=== PATIENT | female | born 1950 | race American Indian/Alaskan Native ===

== ENCOUNTER 2016-08-18 18:20 | Emergency (ER) | payer MEDICARE ==
--- NOTE | 2016-08-18 21:17 | Cat Scan Report ---
FINAL REPORT EXAM: CT HEAD/BRAIN WO CON HISTORY: hypertension, altered mental status TECHNIQUE: Noncontrast CT axial images of the brain. PRIORS: 23 Sep 2014. FINDINGS: No parenchymal mass, mass effect, hemorrhage, midline shift or hydrocephalus. No evidence of acute cortical infarct. No abnormal, extra-axial fluid or air collection. Mild, patchy low density in the periventricular and subcortical white matter is nonspecific, but may relate to chronic small vessel ischemic change. Probable old lacunar infarct changes in the bilateral basal ganglia. Bilateral basal ganglia calcifications. Osseous calvarium grossly intact. IMPRESSION: 1. No acute intracranial findings. 2. Chronic ischemic changes suspected.
[2016-08-18] MEDS ORDERED: CATAPRES PO ONE (21:19)
[2016-08-18] MEDS ORDERED: FIORICET PO ONE (21:19)
--- NOTE | 2016-08-18 21:24 | Emergency Department Report ---
HPI - General Chief Complaint: Weakness Time Seen by Provider: 08/18/16 20:19 - HPI HPI: Room 23 The patient is a 65-year-old female presenting with a chief complaint of headache. The patient states she was in her usual state of health until today at dialysis the patient states she was found to be hypertensive and complained of a headache. Patient states she has pain in the left frontal region of her head. Patient gives her pain a score of 6-7/10. Patient denies loss of consciousness or feeling drowsy while at dialysis. Patient denies any other complaints Location: head Duration: [see above] Quality: Headache Severity: 6-7/10 Modifying factors: [see above] Context: [see above] Mode of transportation: [not driving] ED Past Medical Hx - Past Medical History Hx Hypertension: Yes Hx Diabetes: Yes Hx GERD: Yes Hx Renal Disease: Yes (HD T,TH,Sat) - Surgical History Additional Surgical History: graft left arm - Family History Family history: no significant - Social History Smoking Status: Never Smoker Substance Use Type: None - Medications Home Medications: Home Medications Medication Instructions Recorded Confirmed Last Taken Type Cinacalcet [Sensipar] 30 mg PO DAILY 06/22/13 08/18/16 1 Day Ago History Labetalol HCl [Trandate TAB] 300 mg PO BID #60 tablet 04/11/14 08/18/16 1 Day Ago Rx Furosemide 40 mg PO DAILY PRN 06/18/14 08/18/16 1 Day Ago History ISOSORBIDE MONOnitrate [Imdur ER] 60 mg PO QDAY #30 tablet 06/20/14 08/18/16 1 Day Ago Rx Ferrous Sulfate [Feosol 325 MG tab] 325 mg PO BID #60 tablet 09/24/14 08/18/16 1 Day Ago Rx ALPRAZolam [Xanax TAB] 0.25 mg PO DAILY PRN 09/03/15 08/18/16 08/18/16 08:00 History Clonidine HCl [Catapres] 0.3 mg PO TID 09/03/15 08/18/16 1 Day Ago History Codeine/Butalbital/ASA/Caffein 1 each PO HS 09/03/15 08/18/16 1 Day Ago History [Fiorinal with Codeine #3 Cap] Cyproheptadine [Periactin] 4 mg PO TID 09/03/15 08/18/16 1 Day Ago History Ferric Citrate (Nf) [Auryxia (Nf)] 3 tab PO TID 09/03/15 08/18/16 Unknown History Mirtazapine [Remeron] 15 mg PO DAILY 09/03/15 08/18/16 1 Day Ago History Omeprazole [PriLOSEC] 40 mg PO QDAY 09/03/15 08/18/16 1 Day Ago History Ondansetron [Zofran TAB] 4 mg PO QID PRN 09/03/15 08/18/16 Unknown History Pravastatin (Nf) [Pravachol] 20 mg PO QHS 09/03/15 08/18/16 1 Day Ago History Vit B Cplx #11/FA/C/Biot/Zn Ox 1 each PO DAILY 09/03/15 08/18/16 Unknown History [Dialyvite with Zinc Tablet] Insulin Glulisine [Apidra] See Protocol SUB-Q ACHS 30 Days 12/05/15 08/18/16 1 Day Ago Rx hydrALAZINE [Apresoline TAB] 100 mg PO Q8HR #90 tab 12/05/15 08/18/16 1 Day Ago Rx Butalb/Acetamin/Caff 50-325-40 1 tab PO Q8HR PRN #10 tablet 08/19/16 Unknown Rx [Fioricet] ED Review of Systems ROS: Stated complaint: LETHARGIC Other details as noted in HPI Comment: All other systems reviewed and negative Constitutional: denies: chills, fever Eyes: denies: eye pain, eye discharge, vision change ENT: denies: ear pain, throat pain Respiratory: denies: cough, shortness of breath, wheezing Cardiovascular: denies: chest pain, palpitations Endocrine: no symptoms reported Gastrointestinal: denies: abdominal pain, nausea, diarrhea Genitourinary: denies: urgency, dysuria, discharge Musculoskeletal: denies: back pain, joint swelling, arthralgia Skin: denies: rash, lesions Neurological: headache Psychiatric: denies: anxiety, depression Hematological/Lymphatic: denies: easy bleeding, easy bruising Physical Exam - Physical Exam Vital Signs: Vital Signs 08/18/16 08/18/16 18:43 19:17 Temperature 98.6 F Pulse Rate 78 Respiratory 16 Rate Blood Pressure 193/86 O2 Sat by Pulse 98 97 Oximetry Physical Exam: GENERAL: The patient is well-developed well-nourished female sitting on stretcher not appearing to be in acute distress. [] HEENT: Normocephalic. Atraumatic. Extraocular motions are intact. Patient has moist mucous membranes. NECK: Supple. No meningitic signs are noted. Trachea midline CHEST/LUNGS: Clear to auscultation. There is no respiratory distress noted. HEART/CARDIOVASCULAR: Regular. There is no tachycardia. There is no gallop rub or murmur. ABDOMEN: Abdomen is soft, nontender. Patient has normal bowel sounds. There is no abdominal distention. SKIN: There is no rash. There is no edema. There is no diaphoresis. NEURO: The patient is awake, alert, and oriented. The patient is cooperative. The patient has no focal neurologic deficits. The patient has normal speech. Cranial nerves II through XII grossly intact, no drift, tig welder equal bilaterally MUSCULOSKELETAL: There is no evidence of acute injury. ED Course Vital Signs 08/18/16 08/18/16 18:43 19:17 Temperature 98.6 F Pulse Rate 78 Respiratory 16 Rate Blood Pressure 193/86 O2 Sat by Pulse 98 97 Oximetry ED Medical Decision Making - Lab Data Result diagrams: 08/18/16 21:02 08/18/16 21:02 Laboratory Tests 08/18/16 08/18/16 08/18/16 21:02 21:02 21:02 WBC 3.8 L RBC 4.11 Hgb 12.5 Hct 38.8 MCV 94 MCH 30 MCHC 32 RDW 17.5 H Plt Count 166 Lymph % (Auto) 20.4 [place] % (Auto) 11.4 H Eos % (Auto) 8.2 H Baso % (Auto) 1.1 Lymph # 0.8 L [place] # 0.4 Eos # 0.3 Baso # 0.0 Seg Neutrophils % 58.9 Seg Neutrophils # 2.2 PT 13.3 INR 1.02 APTT 32.6 Sodium 134 L Potassium 4.0 Chloride 93.2 L Carbon Dioxide 21 L Anion Gap 24 BUN 43 H Creatinine 5.6 H Estimated GFR 9 BUN/Creatinine Ratio 7.67 Glucose 94 Calcium 9.1 Ammonia Total Creatine Kinase 439 H CK-MB (CK-2) 7.2 H CK-MB (CK-2) Rel Index 1.6 Troponin T Triglycerides Cholesterol LDL Cholesterol Direct HDL Cholesterol Cholesterol/HDL Ratio 08/18/16 08/18/16 21:02 21:02 WBC RBC Hgb Hct MCV MCH MCHC RDW Plt Count Lymph % (Auto) [place] % (Auto) Eos % (Auto) Baso % (Auto) Lymph # [place] # Eos # Baso # Seg Neutrophils % Seg Neutrophils # PT INR APTT Sodium Potassium Chloride Carbon Dioxide Anion Gap BUN Creatinine Estimated GFR BUN/Creatinine Ratio Glucose Calcium Ammonia 35.0 Total Creatine Kinase CK-MB (CK-2) CK-MB (CK-2) Rel Index Troponin T 0.221 H* Triglycerides 73 Cholesterol 201 H LDL Cholesterol Direct 105 HDL Cholesterol 82 H Cholesterol/HDL Ratio 2.45 Laboratory Tests 08/18/16 08/18/16 08/18/16 21:02 21:02 21:02 WBC 3.8 L RBC 4.11 Hgb 12.5 Hct 38.8 MCV 94 MCH 30 MCHC 32 RDW 17.5 H Plt Count 166 Lymph % (Auto) 20.4 [place] % (Auto) 11.4 H Eos % (Auto) 8.2 H Baso % (Auto) 1.1 Lymph # 0.8 L [place] # 0.4 Eos # 0.3 Baso # 0.0 Seg Neutrophils % 58.9 Seg Neutrophils # 2.2 PT 13.3 INR 1.02 APTT 32.6 Sodium 134 L Potassium 4.0 Chloride 93.2 L Carbon Dioxide 21 L Anion Gap 24 BUN 43 H Creatinine 5.6 H Estimated GFR 9 BUN/Creatinine Ratio 7.67 Glucose 94 Calcium 9.1 Ammonia Total Creatine Kinase 439 H CK-MB (CK-2) 7.2 H CK-MB (CK-2) Rel Index 1.6 Troponin T Triglycerides Cholesterol LDL Cholesterol Direct HDL Cholesterol Cholesterol/HDL Ratio 08/18/16 08/18/16 08/19/16 21:02 21:02 00:44 WBC RBC Hgb Hct MCV MCH MCHC RDW Plt Count Lymph % (Auto) [place] % (Auto) Eos % (Auto) Baso % (Auto) Lymph # [place] # Eos # Baso # Seg Neutrophils % Seg Neutrophils # PT INR APTT Sodium Potassium Chloride Carbon Dioxide Anion Gap BUN Creatinine Estimated GFR BUN/Creatinine Ratio Glucose Calcium Ammonia 35.0 Total Creatine Kinase 388 H CK-MB (CK-2) 6.3 H CK-MB (CK-2) Rel Index 1.6 Troponin T 0.221 H* 0.262 H* Triglycerides 73 Cholesterol 201 H LDL Cholesterol Direct 105 HDL Cholesterol 82 H Cholesterol/HDL Ratio 2.45 - EKG Data -: EKG Interpreted by Me EKG shows normal: sinus rhythm Rate: normal - EKG Data When compared to previous EKG there are: no significant change Interpretation: unchanged when compared t (12/03/2015) - Radiology Data Radiology results: report reviewed (CT head), image reviewed (CT head) CT head (read by radiologist)-no acute intracranial findings. Chronic ischemic changes suspected. - Differential Diagnosis hypertension, ICH, Critical care attestation.: If time is entered above; I have spent that time in minutes in the direct care of this critically ill patient, excluding procedure time. ED Disposition Clinical Impression: Headache, Hypertension Disposition: DISCHARGED TO HOME OR SELFCARE Is pt being admited?: No Does the pt Need Aspirin: No Condition: Stable Instructions: Hypertension (ED) Additional Instructions: Return to the emergency department immediately should you develop worsening symptoms, fever, inability to tolerate food or liquid or any other concerns. Prescriptions: Butalb/Acetamin/Caff 50-325-40 [Fioricet] 1 tab PO Q8HR PRN #10 tablet PRN Reason: Headache Referrals: PRIMARY CARE, [Primary Care Provider] - 3-5 Days Time of Disposition: 01:42
[2016-08-18 21:38] LABS: Basophils % (Auto) 1.1 % (0.0-1.8); Eosinophils % (Auto) 8.2 % (0.0-4.3); Hematocrit 38.8 % (30.3-42.9); Hemoglobin 12.5 gm/dl (10.1-14.3); Mean Corpuscular HGB Conc 32 % (30-34); Mean Corpuscular Hemoglobin 30 pg (28-32); Mean Corpuscular Volume 94 fl (79-97); Platelet Count 166 K/mm3 (140-440); Red Blood Count 4.11 M/mm3 (3.65-5.03); Red Cell Distribution Width 17.5 % (13.2-15.2); White Blood Count 3.8 K/mm3 (4.5-11.0)
[2016-08-18 21:45] LABS: Creatine Kinase MB 7.2 ng/mL (0.0-4.0)
[2016-08-18 21:47] LABS: BUN/Creatinine Ratio 7.67; Calcium 9.1 mg/dL (8.4-10.2); Chloride 93.2 mmol/L (98-107)
[2016-08-18 21:48] LABS: INR 1.02 (0.87-1.13)
[2016-08-18 21:49] LABS: Partial Thromboplastin Time 32.6 Sec. (24.2-36.6)
[2016-08-18] MEDS ORDERED: NORMODYNE IV ONE (22:55)
[2016-08-19 01:17] VITALS: BP 169/79
[2016-08-19 01:31] LABS: Creatine Kinase MB 6.3 ng/mL (0.0-4.0)
== END 2016-08-19 03:11 | disposition home or self-care (01) ==
LOC: ED 18:20
DX: R51 Headache (principal); I12.0 Hypertensive chronic kidney disease with stage 5 chronic kidney disease or end stage renal disease; N18.6 End stage renal disease; K21.9 Gastro-esophageal reflux disease without esophagitis; E11.9 Type 2 diabetes mellitus without complications; Z79.4 Long term (current) use of insulin
CPT/HCPCS: 36415; 70450; 80048; 80061; 82140; 82550; 82553; 84484; 85025; 85610; 85730; 93005; 93010; 96374

== ENCOUNTER 2016-08-27 10:22 | Outpatient (CLI) | payer MEDICARE ==
--- NOTE | 2016-08-27 13:45 | Mammography Report ---
Screening mammogram: Routine views demonstrates an intermediate density breast pattern. No focal mass nor architectural distortion present. There are extensive vascular calcifications in this dialysis patient. We have no prior study for comparison. CAD used. Impression: Benign findings. Recommendation: Annual mammogram followup. BI-RADS CATEGORY: 1 = Negative ACR BI-RADS MAMMOGRAPHIC CODES: 0 = Needs additional imaging evaluation; 1 = Negative; 2 = Benign; 3 = Probably benign; 4 = Suspicious; 5 = Malignant; 6 = Known biopsy-proven malignancy COMMENT: 1. Dense breast tissue, i.e., adenosis, fibrocystic changes, etc., may obscure an underlying neoplasm. 2. Approximately 10% of cancers are not detected with mammography. 3. A negative mammography report should not delay biopsy if a clinically suspicious mass is present.
== END 2016-08-27 10:23 | disposition home or self-care (01) ==
LOC: MAMMO 10:22
PROVIDERS: ATTEND Internal Medicine
DX: Z12.31 Encounter for screening mammogram for malignant neoplasm of breast (principal)
CPT/HCPCS: 77067; G0202

== ENCOUNTER 2016-11-13 14:35 | Emergency (ER) | payer MEDICARE ==
[2016-11-13 16:24] LABS: Basophils % (Auto) 1.3 % (0.0-1.8); Eosinophils % (Auto) 3.6 % (0.0-4.3); Hematocrit 34.7 % (30.3-42.9); Hemoglobin 11.1 gm/dl (10.1-14.3); Mean Corpuscular HGB Conc 32 % (30-34); Mean Corpuscular Hemoglobin 31 pg (28-32); Mean Corpuscular Volume 97 fl (79-97); Platelet Count 268 K/mm3 (140-440); Red Blood Count 3.58 M/mm3 (3.65-5.03); White Blood Count 4.3 K/mm3 (4.5-11.0)
[2016-11-13 16:32] LABS: Partial Thromboplastin Time 47.1 Sec. (24.2-36.6)
[2016-11-13 16:34] LABS: Albumin/Globulin Ratio 1.4 %; BUN/Creatinine Ratio 5.15; Bilirubin,Total 0.3 mg/dL (0.1-1.2); Calcium 9.5 mg/dL (8.4-10.2); Chloride 93.2 mmol/L (98-107); Potassium 4.2 mmol/L (3.6-5.0); Total Protein 6.9 g/dL (6.3-8.2)
--- NOTE | 2016-11-13 22:47 | Emergency Department Report ---
ED General Adult HPI - General Chief complaint: High BP Stated complaint: B/P COMPLICATIONS/WEAK/HEADACHE Time Seen by Provider: 11/13/16 21:23 Source: patient Mode of arrival: Ambulatory Limitations: No Limitations - History of Present Illness Initial comments: 66-year-old female with a past medical history of hypertension, end-stage renal disease on dialysis, and diabetes presents to the hospital complaining of elevated blood pressure the last 2-3 weeks. About 6 weeks ago patient's blood pressure was dropping and therefore her meds were adjusted by her PMD Dr. Arreguin. The last 2 weeks patient states her blood pressure has been fluctuating. Is typically high at 7 AM and in the evening it improves during the day and during dialysis. BP high today 109/97. Patient has headache intermittently but denies headache currently. She also denies chest pain, shortness of breath, nausea, vomiting, focal weakness or numbness. Last to 3 days based states she has had difficulty walking and unsteady gait which is new. Patient denies dizziness or vertigo symptoms and states she feels off balance. - Related Data Home Medications Medication Instructions Recorded Confirmed Last Taken Furosemide 40 mg PO DAILY PRN 06/18/14 11/13/16 1 Day Ago Clonidine HCl [Catapres] 0.3 mg PO TID 09/03/15 11/13/16 11/13/16 Previous Rx's Medication Instructions Recorded Last Taken Type Labetalol HCl [Trandate TAB] 300 mg PO BID #60 tablet 04/11/14 11/13/16 Rx Allergies Allergy/AdvReac Type Severity Reaction Status Date / Time erythromycin base Allergy Rash Verified 06/17/15 21:56 [Erythromycin Base] lisinopril Allergy Swelling Verified 06/17/15 21:56 ED Review of Systems ROS: Stated complaint: B/P COMPLICATIONS/WEAK/HEADACHE Other details as noted in HPI Comment: All other systems reviewed and negative Other: Constitutional: No fevers chills Eyes: No eye pain visual changes ENT: No ear pain or throat pain Neck: Denies pain Respiratory: Denies cough wheezing shortness of breath Cardiovascular: Denies chest pain, palpitations GI: Denies abdominal pain, nausea, vomiting, diarrhea : Denies dysuria Musculoskeletal: Denies back pain Skin: Denies rash, lesions, erythema Neurologic: Denies headache, numbness, weakness Psychiatric: Denies suicidal ideation, hallucinations ED Past Medical Hx - Past Medical History Previous Medical History?: Yes Hx Hypertension: Yes Hx Heart Attack/AMI: No Hx Congestive Heart Failure: No Hx Diabetes: Yes Hx Deep Vein Thrombosis: No Hx GERD: Yes Hx Liver Disease: No Hx Renal Disease: Yes (HD T,TH,Sat) Hx Sickle Cell Disease: No Hx Seizures: No Hx Kidney Stones: No Hx HIV: No - Surgical History Past Surgical History?: Yes Hx Coronary Stent: No Hx Open Heart Surgery: No Hx Pacemaker: No Hx Internal Defibrillator: No Hx Cholecystectomy: No Hx Appendectomy: No Hx Breast Surgery: No Additional Surgical History: graft left arm - Social History Smoking Status: Never Smoker Substance Use Type: Prescribed - Medications Home Medications: Home Medications Medication Instructions Recorded Confirmed Last Taken Type Labetalol HCl [Trandate TAB] 300 mg PO BID #60 tablet 04/11/14 11/13/16 Rx Furosemide 40 mg PO DAILY PRN 06/18/14 11/13/16 1 Day Ago History Clonidine HCl [Catapres] 0.3 mg PO TID 09/03/15 11/13/16 11/13/16 History ED Physical Exam - General Limitations: No Limitations - Other Other exam information: General: No limitations, patient is alert in no acute distress Head exam: Atraumatic, normocephalic Eyes exam: Normal appearance ENT: Moist mucous membrane, normal oropharynx Neck exam: Normal inspection, full range of motion Respiratory exam: Clear to auscultation bilateral, no wheezes, rales, crackles Cardiovascular: Normal rate and rhythm, positive systolic murmur, positive thrill left arm dialysis access Abdomen: Soft, nondistended, and nontender, with normal bowel sounds, no rebound, or guarding Extremity: Full range of motion normal inspection no deformity, no calf tenderness or edema Back: Normal Inspection, full range of motion, no tenderness Neurologic: Alert, oriented x3, cranial nerves intact, no motor or sensory deficit, [id number] function intact Psychiatric: normal affect, normal mood Skin: Warm, dry, intact ED Course Vital Signs 11/13/16 11/13/16 11/13/16 14:50 22:19 23:07 Temperature 99.6 F Pulse Rate 77 71 Pulse Rate [ 69 Lying] Pulse Rate [ 72 Sitting] Pulse Rate [ 71 Standing] Respiratory 18 18 Rate Blood Pressure 141/68 Blood Pressure 187/82 [Lying] Blood Pressure 170/75 [Right] Blood Pressure 182/77 [Sitting] Blood Pressure 170/75 [Standing] O2 Sat by Pulse 100 97 Oximetry 11/13/16 11/14/16 23:56 00:23 Temperature Pulse Rate 68 68 Pulse Rate [ Lying] Pulse Rate [ Sitting] Pulse Rate [ Standing] Respiratory 18 Rate Blood Pressure 151/70 Blood Pressure [Lying] Blood Pressure 151/70 [Right] Blood Pressure [Sitting] Blood Pressure [Standing] O2 Sat by Pulse 97 Oximetry - Reevaluation(s) Reevaluation #1: 11/14/16 01:05 pt stable in ed blood pressure seemed to fluctuate during ED stay the patient asymptomatic. - Consultations Consultation #1: 11/13/16 23:40 case d/w Dr waters, rec oupt f/u regarding dialysis 11/14/16 Case was discussed with Dr. Luna combat information [employer] officer physician for Dr. Arreguin's group.. She was informed of patient's symptoms and recent for recent ER visit and she will be encouraged to follow up as outpatient ED Medical Decision Making - Lab Data Result diagrams: 11/13/16 15:51 11/13/16 15:51 Lab Results 11/13/16 11/13/16 11/13/16 Range/Units 15:51 15:51 15:51 WBC 4.3 L (4.5-11.0) K/mm3 RBC 3.58 L (3.65-5.03) M/mm3 Hgb 11.1 (10.1-14.3) gm/dl Hct 34.7 (30.3-42.9) % MCV 97 (79-97) fl MCH 31 (28-32) pg MCHC 32 (30-34) % RDW 15.0 (13.2-15.2) % Plt Count 268 (140-440) K/mm3 Lymph % (Auto) 12.3 L (13.4-35.0) % [place] % (Auto) 11.7 H (0.0-7.3) % Eos % (Auto) 3.6 (0.0-4.3) % Baso % (Auto) 1.3 (0.0-1.8) % Lymph # 0.5 L (1.2-5.4) K/mm3 [place] # 0.5 (0.0-0.8) K/mm3 Eos # 0.2 (0.0-0.4) K/mm3 Baso # 0.1 (0.0-0.1) K/mm3 Seg Neutrophils % 71.1 H (40.0-70.0) % Seg Neutrophils # 3.1 (1.8-7.7) K/mm3 PT 13.7 (12.2-14.9) Sec. INR 1.00 (0.87-1.13) APTT 47.1 H (24.2-36.6) Sec. Sodium 135 L (137-145) mmol/L Potassium 4.2 (3.6-5.0) mmol/L Chloride 93.2 L (98-107) mmol/L Carbon Dioxide 20 L (22-30) mmol/L Anion Gap 26 mmol/L BUN 34 H (7-17) mg/dL Creatinine 6.6 H (0.7-1.2) mg/dL Estimated GFR 8 ml/min BUN/Creatinine Ratio 5.15 % Glucose 167 H (65-100) mg/dL Calcium 9.5 (8.4-10.2) mg/dL Total Bilirubin 0.30 (0.1-1.2) mg/dL AST 20 (5-40) units/L ALT 14 (7-56) units/L Alkaline Phosphatase 72 (35-129) units/L Total Protein 6.9 (6.3-8.2) g/dL Albumin 4.0 (3.9-5) g/dL Albumin/Globulin Ratio 1.4 % - Radiology Data Radiology results: report reviewed (CT head: No acute findings, chronic changes noted) - Medical Decision Making Plan discharge patient home. Patient is not having any focal neurologic deficit and reports some recent unsteady gait. Patient be encouraged to use a walker and to return if symptoms worsen. Patient also be discharged home to follow up for her outpatient dialysis as she does not meet criteria for emergent dialysis at this time. 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 ED Disposition Clinical Impression: ESRD on hemodialysis, Diabetes, Unsteady gait, Uncontrolled hypertension Disposition: TO HOME OR SELFCARE Is pt being admited?: No Does the pt Need Aspirin: No Condition: Stable Instructions: Diabetes Mellitus Type 2 in Adults (ED), Hypertension (ED), Fall Prevention for Older Adults (ED) Additional Instructions: Use a walker or cane as needed for gait assistance. Follow up with your doctor as soon as possible for further evaluation including reassessment of your symptoms and blood pressure. Go to your dialysis as scheduled. Please return if symptoms worsen. Referrals: FROYLAN ARREGUIN MD [Primary Care Provider] - 2-3 Days JULITO ROSARIO MD [Staff Physician] - 2-3 Days Time of Disposition: 01:08
--- NOTE | 2016-11-13 23:11 | Cat Scan Report ---
FINAL REPORT PROCEDURE: CT HEAD/BRAIN WO CON TECHNIQUE: Computerized tomography of the head was performed without contrast material. HISTORY: dizzy, unsteady gate COMPARISON: 08/18/2016 FINDINGS: Skull and scalp: Normal. Paranasal sinuses: Normal. Ventricles and subarachnoid spaces: Normal. Cerebrum: An old lacunar infarct is noted involving the right internal capsule and the caudate nucleus. Mild degree of bilateral periventricular nonspecific white matter hypodensity is noted. There is no mass effect. An acute intracranial hemorrhage is not identified. Cerebellum and brainstem: No evidence of hemorrhage, acute infarction or mass. Vasculature: Atherosclerotic calcification is noted involving bilateral internal carotid and vertebral arteries. Comments: None. IMPRESSION: No acute intracranial abnormality. 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
[2016-11-13] MEDS ORDERED: CATAPRES PO ONE (23:46)
[2016-11-13 23:57] VITALS: BP 151/70
== END 2016-11-14 01:22 | disposition home or self-care (01) ==
LOC: ED 14:35
DX: I12.0 Hypertensive chronic kidney disease with stage 5 chronic kidney disease or end stage renal disease (principal); E11.22 Type 2 diabetes mellitus with diabetic chronic kidney disease; N18.6 End stage renal disease; K21.9 Gastro-esophageal reflux disease without esophagitis; Z99.2 Dependence on renal dialysis; Z88.1 Allergy status to other antibiotic agents; Z88.8 Allergy status to other drugs, medicaments and biological substances
CPT/HCPCS: 36415; 70450; 80053; 85025; 85610; 85730; 99284

== ENCOUNTER 2016-12-02 17:28 | Inpatient (IN) | payer MEDICARE ==
[2016-12-02] MEDS ORDERED: TYLENOL PR STA (17:41)
[2016-12-02] MEDS ORDERED: NACL 0.9% 500 ML 500 ML IV ONE (17:41)
--- NOTE | 2016-12-02 18:02 | Emergency Department Report ---
HPI - General Chief Complaint: Altered Mental Status Time Seen by Provider: 12/02/16 17:43 - HPI HPI: This is a 66-year-old Afro-[place] Islander female presents to the emergency department after completing dialysis with complaint of generalized weakness and some lethargy. The patient did complete her dialysis. She otherwise did not receive anything for symptoms prior to presentation. She denies any chest pain , shortness of breath, nausea, vomiting. She does admit to an occasional cough. She does not make urine and therefore denies any dysuria. She has a past medical history of hypertension, end-stage renal disease on hemodialysis Tuesday, , Tuesday, as well as diabetes. Her primary care doctor is Dr. Pham and her care rep is Dr. Marcos. She did not take anything prior to presentation nor receive anything in route with EMS. No recent travel or sick contacts at home. She was found to have a fever here upon arrival but denied feeling feverish. ED Past Medical Hx - Past Medical History Previous Medical History?: Yes Hx Hypertension: Yes Hx Heart Attack/AMI: No Hx Congestive Heart Failure: No Hx Diabetes: Yes Hx Deep Vein Thrombosis: No Hx GERD: Yes Hx Liver Disease: No Hx Renal Disease: Yes (HD ,,Tue) Hx Sickle Cell Disease: No Hx Seizures: No Hx Kidney Stones: No Hx HIV: No - Surgical History Hx Coronary Stent: No Hx Open Heart Surgery: No Hx Pacemaker: No Hx Internal Defibrillator: No Hx Cholecystectomy: No Hx Appendectomy: No Hx Breast Surgery: No Additional Surgical History: graft left arm - Social History Smoking Status: Never Smoker Substance Use Type: None - Medications Home Medications: Home Medications Medication Instructions Recorded Confirmed Last Taken Type Furosemide 80 mg PO BID 06/18/14 12/02/16 1 Day Ago History Clonidine HCl [Catapres] 0.3 mg PO TID 09/03/15 12/02/16 11/13/16 History ALPRAZolam [Xanax TAB] 0.25 mg PO QDAY PRN 12/02/16 12/02/16 Unknown History Codeine/Butalbital/ASA/Caffein 1 tab PO BID PRN 12/02/16 12/02/16 Unknown History [Butalbital Comp-Codeine #3 Cap] Cyproheptadine [Periactin] 4 mg PO TID 12/02/16 12/02/16 Unknown History Insulin NPH, Human [NovoLIN N] 6 units PO BID 12/02/16 12/02/16 Unknown History Labetalol HCl [Trandate TAB] 300 mg PO TID 12/02/16 12/02/16 Unknown History Mirtazapine [Remeron] 15 mg PO QDAY 12/02/16 12/02/16 Unknown History Omeprazole [Omeprazole] 40 mg PO QDAY 12/02/16 12/02/16 Unknown History Ondansetron [Zofran TAB] 4 mg PO QID PRN 12/02/16 12/02/16 Unknown History Pravastatin Sodium [Pravastatin] 20 mg PO QDAY 12/02/16 12/02/16 Unknown History Sevelamer Carbonate 2 pack PO TID 12/02/16 12/02/16 Unknown History Sodium Polystyrene Sulfonate 15 kg PO 2XW 12/02/16 12/02/16 Unknown History [Kalexate] Vit B Cplx #11/FA/C/Biot/Zn Ox 1 tab PO QDAY 12/02/16 12/02/16 Unknown History [Dialyvite with Zinc Tablet] ED Review of Systems ROS: Stated complaint: LETHARGIC AMS Other details as noted in HPI Comment: All other systems reviewed and negative Constitutional: weakness. denies: diaphoresis Eyes: denies: eye pain, eye discharge, vision change ENT: denies: ear pain, throat pain Respiratory: cough. denies: shortness of breath Cardiovascular: denies: chest pain, palpitations Gastrointestinal: denies: abdominal pain, nausea, diarrhea Genitourinary: denies: urgency, dysuria, discharge Musculoskeletal: denies: back pain, joint swelling, arthralgia Skin: denies: rash, lesions Neurological: headache, weakness. denies: numbness, paresthesias Physical Exam - Physical Exam Vital Signs: Vital Signs 12/02/16 12/02/16 17:38 17:58 Temperature 100.6 F H Pulse Rate 112 H Respiratory 16 16 Rate Blood Pressure 198/76 O2 Sat by Pulse 100 Oximetry Physical Exam: GENERAL: The patient is well-developed well-nourished. HEENT: Normocephalic. Atraumatic. Extraocular motions are intact. Patient has moist mucous membranes. Pupils equal reactive to light bilaterally. No nystagmus. NECK: Supple. Trachea is midline. CHEST/LUNGS: Clear to auscultation. There is no respiratory distress noted. HEART/CARDIOVASCULAR: Regular. There is no tachycardia. There is no gallop rub or murmur. ABDOMEN: Abdomen is soft, nontender. Patient has normal bowel sounds. There is no abdominal distention. SKIN: Skin is warm and dry. NEURO: The patient is awake, alert. The patient is cooperative. The patient has no focal neurologic deficits. The patient has normal speech. Cranial nerves II through XII grossly intact. MUSCULOSKELETAL: There is no tenderness or deformity. Radial pulses +2 over 4 bilaterally. There is no evidence of acute injury. ED Course Vital Signs 12/02/16 12/02/16 17:38 17:58 Temperature 100.6 F H Pulse Rate 112 H Respiratory 16 16 Rate Blood Pressure 198/76 O2 Sat by Pulse 100 Oximetry ED Medical Decision Making - Lab Data Result diagrams: 12/02/16 18:12 12/02/16 18:12 - EKG Data -: EKG Interpreted by Me EKG shows normal: sinus rhythm, axis, intervals, QRS complexes (LVH), ST-T waves (there are some peaked T waves) Rate: tachycardia (108 bpm) - EKG Data When compared to previous EKG there are: previous EKG unavailable Interpretation: other (sinus tachycardia at 108 bpm, LVH, slightly peaked T waves) - Radiology Data Radiology results: report reviewed, image reviewed interpreted by me: Chest x-ray shows mild cardiomegaly. No obvious pneumonia. No pleural effusions. No pneumothorax. CT of the head without contrast did not show any acute intracranial abnormalities. - Medical Decision Making 66-year-old female presents to the emergency department from dialysis after completing dialysis with complaint of some generalized weakness. Patient presents with a fever of 103 rectally. She was given some Tylenol and it has come down to a more reasonable level. There was some concern for altered mental status with the patient is AAO 3. However later the patient says that she does not necessarily remember coming to the emergency department. A CT of the head was done without contrast did not show any acute intracranial process. Chest x-ray did not show any acute process. Her labs were abnormal as there was a 27,000 white count with neutrophilia. No source of infection has been found. There is some renal insufficiency but the patient has chronic kidney disease. No hyperkalemia. EKG does not show any signs of ST elevation [place]. The patient was started on antibiotics empirically given the leukocytosis and the fever. She will be admitted to the hospital for further evaluation and has been accepted for admission by the hospitalist, Dr. Harrison. - Differential Diagnosis pneumonia, CVA, hyperkalemia, [place] Critical Care Time: No Critical care attestation.: If time is entered above; I have spent that time in minutes in the direct care of this critically ill patient, excluding procedure time. ED Disposition Clinical Impression: Weakness, SIRS (systemic inflammatory response syndrome), ESRD on hemodialysis Leukocytosis Qualifiers: Leukocytosis type: unspecified Qualified Code(s): D72.829 - Elevated white blood cell count, unspecified Fever Qualifiers: Fever type: unspecified Qualified Code(s): R50.9 - Fever, unspecified Disposition: OP ADMIT IP TO THIS HOSP Is pt being admited?: Yes Condition: Stable Time of Disposition: 23:23
--- NOTE | 2016-12-02 18:10 | Cat Scan Report ---
FINAL REPORT EXAM: CT HEAD/BRAIN WO CON HISTORY: AMS TECHNIQUE: Noncontrast serial axial images from skull base to vertex PRIORS: None. FINDINGS: There is mild atrophy. There is no mass effect or midline shift. There are no abnormal intra or extra-axial fluid collections. Lateral ventricles are within normal limits for size and configuration. Basilar cisterns are patent. No acute intracranial hemorrhage is identified. Areas of relative hypodensity are seen in the white matter of the cerebral hemispheres. Atherosclerotic changes are noted. Visualized paranasal sinuses and mastoid air cells are well aerated. No acute osseous abnormality is identified. IMPRESSION: 1. No abnormal mass or acute intracranial hemorrhage is identified. 2. Areas of relative hypodensity are seen in the white matter of the cerebral hemispheres. This is a nonspecific finding. It may be related to chronic ischemic change from small vessel disease.
[2016-12-02 18:39] LABS: Hematocrit 38.6 % (30.3-42.9); Hemoglobin 12.5 gm/dl (10.1-14.3); Mean Corpuscular HGB Conc 32 % (30-34); Mean Corpuscular Hemoglobin 31 pg (28-32); Mean Corpuscular Volume 96 fl (79-97); Red Blood Count 4.04 M/mm3 (3.65-5.03); Red Cell Distribution Width 14.7 % (13.2-15.2)
[2016-12-02 18:43] LABS: Platelet Count 216 K/mm3 (140-440); White Blood Count 27.3 K/mm3 (4.5-11.0)
[2016-12-02 18:51] LABS: INR 1.21 (0.87-1.13)
[2016-12-02 18:56] LABS: Albumin 4.3 g/dL (3.9-5); Albumin/Globulin Ratio 1.1 %; BUN/Creatinine Ratio 5.17; Bilirubin,Total 0.5 mg/dL (0.1-1.2); Calcium 10.1 mg/dL (8.4-10.2); Chloride 88.8 mmol/L (98-107); Potassium 3.7 mmol/L (3.6-5.0); Total Protein 8.3 g/dL (6.3-8.2)
[2016-12-02] MEDS ORDERED: APRESOLINE IV ONE (18:56)
[2016-12-02] MEDS ORDERED: ZOSYN/NS 4.5GM/100ML 4.5 GM/100 ML VIAL IV ONE (19:02)
[2016-12-02 19:22] LABS: Blastocytes % (Manual) 0 %
[2016-12-02 19:23] LABS: Basophils % (Manual) 0 % (0.0-1.8); Eosinophils % (Manual) 0 % (0.0-4.3); Total Cells Counted Percent 1.5
[2016-12-02 19:24] LABS: Anisocytosis 1+; Diff Status Complete; Elliptocytes Few
--- NOTE | 2016-12-02 20:46 | XRay Report ---
FINAL REPORT EXAM: XR CHEST 1V AP HISTORY: possible Sepsis TECHNIQUE: Single-view chest 2 images PRIORS: None. FINDINGS: There is a stent in left axilla. Linear density is noted in the medial aspect of the left lung base in the retrocardiac region. Heart is enlarged. Aortic calcifications are noted. No acute osseous abnormality is identified. IMPRESSION: 1. Linear density is noted in the medial aspect of the left lung base. This may be secondary to scarring or atelectasis. 2. Cardiomegaly. The appearance may be exaggerated by portable technique.
[2016-12-02] MEDS ORDERED: ZOFRAN IV PRN (22:42)
--- NOTE | 2016-12-03 05:48 | History and Physical Report ---
History of Present Illness Date of examination: 12/02/16 Date of admission: 12/02/16 22:31 Chief complaint: Chief complaint is change in mental status, History of present illness: History of present illness, patient is a 66-year-old female with end-stage renal disease on dialysis 3 times a week, patient had dialysis prior to presentation and started feeling weak and then became lethargic with altered mental status. There there was no history of chest pain or shortness of breath but patient also complained of fever but denied history of cough or headaches Past History Past Medical History: diabetes, dialysis, ESRD, hypertension Past Surgical History: Other (left arm graft) Social history: no significant social history Family history: no significant family history Medications and Allergies Allergies Allergy/AdvReac Type Severity Reaction Status Date / Time erythromycin base Allergy Rash Verified 06/17/15 21:56 [Erythromycin Base] lisinopril Allergy Swelling Verified 06/17/15 21:56 Home Medications Medication Instructions Recorded Confirmed Last Taken Type Furosemide 80 mg PO BID 06/18/14 12/02/16 1 Day Ago History Clonidine HCl [Catapres] 0.3 mg PO TID 09/03/15 12/02/16 11/13/16 History ALPRAZolam [Xanax TAB] 0.25 mg PO QDAY PRN 12/02/16 12/02/16 Unknown History Codeine/Butalbital/ASA/Caffein 1 tab PO BID PRN 12/02/16 12/02/16 Unknown History [Butalbital Comp-Codeine #3 Cap] Cyproheptadine [Periactin] 4 mg PO TID 12/02/16 12/02/16 Unknown History Insulin NPH, Human [NovoLIN N] 6 units PO BID 12/02/16 12/02/16 Unknown History Labetalol HCl [Trandate TAB] 300 mg PO TID 12/02/16 12/02/16 Unknown History Mirtazapine [Remeron] 15 mg PO QDAY 12/02/16 12/02/16 Unknown History Omeprazole [Omeprazole] 40 mg PO QDAY 12/02/16 12/02/16 Unknown History Ondansetron [Zofran TAB] 4 mg PO QID PRN 12/02/16 12/02/16 Unknown History Pravastatin Sodium [Pravastatin] 20 mg PO QDAY 12/02/16 12/02/16 Unknown History Sevelamer Carbonate 2 pack PO TID 12/02/16 12/02/16 Unknown History Sodium Polystyrene Sulfonate 15 kg PO 2XW 12/02/16 12/02/16 Unknown History [Kalexate] Vit B Cplx #11/FA/C/Biot/Zn Ox 1 tab PO QDAY 12/02/16 12/02/16 Unknown History [Dialyvite with Zinc Tablet] Active Meds: Active Medications Acetaminophen (Tylenol) 650 mg PO Q4H PRN PRN Reason: Fever Ondansetron HCl (Zofran) 4 mg IV Q6H PRN PRN Reason: Nausea And Vomiting Review of Systems Constitutional: fever, weakness, no sweats, no poor appetite Eyes: bilateral: other (no bilateral eye symptoms) Ears, nose, mouth and throat: no ear pain, no decreased hearing, no nasal congestion, no nasal discharge, no sinus pressure, no dental pain, no dysphagia , no hoarseness, no sore throat, no swelling in mouth, no swelling in throat, no post-nasal drip, no headache, no vertigo, no pain front of neck Breasts: deferred Cardiovascular: high blood pressure, no chest pain, no rapid/irregular heart beat, no syncope, no lightheadedness, no shortness of breath, no paroxysmal nocturnal dyspnea, no leg edema Respiratory: no cough, no excessive sputum, no hemoptysis, no shortness of breath, no dyspnea on exertion, no congestion, no wheezing, no pleurisy, no pain on inspiration, no respiratory infections Gastrointestinal: no abdominal pain, no nausea, no vomiting, no diarrhea, no constipation, no change in bowel habits, no hematemesis, no melena, no loss of appetite, no early satiety, no excessive gas Genitourinary Female: no pelvic pain, no flank pain, no menorrhagia, no urinary frequency, no stress incontinence, no post void dribbling, no incomplete emptying, no urge incontinence, no mixed incontinence, no vaginal dryness, no decreased libido, no mood problems, no hot flashes, no prolapse symptoms, no Menstruation: postmenopausal Rectal: no incontinence, no hemorrhoids, no flatulence Musculoskeletal: muscle weakness, no neck pain, no shooting arm pain, no low back pain, no shooting leg pain, no morning stiffness, no muscle cramps, no myalgias, no frequent falls, no loss of height Integumentary: no redness, no wounds, no jaundice, no lesions, no darkening of skin, no depigmentation, no dryness, no brittle nails, no hirsutism Neurological: weakness, change in mentation, no numbness, no tingling, no seizures, no syncope, no tremors, no lack of coordination, no convulsions, no aphasia, no change in speech, no confusion, no memory loss, no changes in smell/ taste, no motor disturbance, no sensory deficit, no double vision, no loss of vision, no hearing difficulties Psychiatric: no memory loss, no change in appetite, no change in libido, no suicidal ideation, no hallucinations, no anxiety attacks, no confusion Endocrine: no heat intolerance, no excessive thirst, no polyuria, no nocturia, no excessive sweating, no flushing, no deepening of the voice, no thyroid mass, no palpatations Hematologic/Lymphatic: no easy bruising, no easy bleeding, no lymphadenopathy, no lymphedema Allergic/Immunologic: no urticaria, no allergic rhinitis, no persistent infections, no anaphylaxis, no gluten intolerance Exam - Constitutional Vitals: Temp Pulse Resp BP Pulse Ox 98.0 F 96 H 18 165/71 98 12/03/16 05:00 12/03/16 05:00 12/03/16 05:00 12/03/16 05:00 12/03/16 05:00 General appearance: Present: no acute distress. Absent: disheveled - EENT Eyes: Present: PERRL, EOM intact. Absent: scleral icterus, miosis ENT: hearing intact, no clear oral mucosa, no dentition normal, no oropharyngeal erythema, no edentulous - Neck Neck: Present: supple, normal ROM. Absent: enlarged thyroid, carotid bruits - Respiratory Respiratory effort: normal - Cardiovascular Rhythm: regular Heart Sounds: Present: S1 & S2. Absent: gallop, systolic murmur, diastolic murmur, click - Extremities Extremities: no ischemia Peripheral Pulses: within normal limits - Abdominal General gastrointestinal: Present: soft, non-tender, non-distended. Absent: tender, distended, rigid, hepatomegaly, splenomegaly Female genitourinary: Present: deferred - Rectal Rectal Exam: deferred - Integumentary Integumentary: Present: clear, warm, dry. Absent: erythema, jaundice - Musculoskeletal Musculoskeletal: strength equal bilaterally - Psychiatric Psychiatric: appropriate mood/affect - Neurologic Neurologic: CNII-XII intact Results - Labs CBC & Chem 7: 12/02/16 18:12 12/02/16 18:12 Labs: Laboratory Last Values WBC 27.3 K/mm3 (4.5-11.0) H 12/02/16 18:12 RBC 4.04 M/mm3 (3.65-5.03) 12/02/16 18:12 Hgb 12.5 gm/dl (10.1-14.3) 12/02/16 18:12 Hct 38.6 % (30.3-42.9) 12/02/16 18:12 MCV 96 fl (79-97) 12/02/16 18:12 MCH 31 pg (28-32) 12/02/16 18:12 MCHC 32 % (30-34) 12/02/16 18:12 RDW 14.7 % (13.2-15.2) 12/02/16 18:12 Plt Count 216 K/mm3 (140-440) 12/02/16 18:12 Add Manual Diff Complete 12/02/16 18:12 Total Counted 200 12/02/16 18:12 Seg Neutrophils % Senior Gis Analyst 12/02/16 18:12 Seg Neuts % (Manual) 97.5 % (40.0-70.0) H 12/02/16 18:12 Band Neutrophils % 0 % 12/02/16 18:12 Lymphocytes % (Manual) 1.0 % (13.4-35.0) L 12/02/16 18:12 Reactive Lymphs % (Man) 0 % 12/02/16 18:12 Monocytes % (Manual) 1.5 % (0.0-7.3) 12/02/16 18:12 Eosinophils % (Manual) 0 % (0.0-4.3) 12/02/16 18:12 Basophils % (Manual) 0 % (0.0-1.8) 12/02/16 18:12 Metamyelocytes % 0 % 12/02/16 18:12 Myelocytes % 0 % 12/02/16 18:12 Promyelocytes % 0 % 12/02/16 18:12 Blast Cells % 0 % 12/02/16 18:12 Nucleated RBC % Not Reportable 12/02/16 18:12 Seg Neutrophils # Man 26.6 K/mm3 (1.8-7.7) H 12/02/16 18:12 Band Neutrophils # 0.0 K/mm3 12/02/16 18:12 Lymphocytes # (Manual) 0.3 K/mm3 (1.2-5.4) L 12/02/16 18:12 Abs React Lymphs (Man) 0.0 K/mm3 12/02/16 18:12 Monocytes # (Manual) 0.4 K/mm3 (0.0-0.8) 12/02/16 18:12 Eosinophils # (Manual) 0.0 K/mm3 (0.0-0.4) 12/02/16 18:12 Basophils # (Manual) 0.0 K/mm3 (0.0-0.1) 12/02/16 18:12 Metamyelocytes # 0.0 K/mm3 12/02/16 18:12 Myelocytes # 0.0 K/mm3 12/02/16 18:12 Promyelocytes # 0.0 K/mm3 12/02/16 18:12 Blast Cells # 0.0 K/mm3 12/02/16 18:12 WBC Morphology Not Reportable 12/02/16 18:12 Hypersegmented Neuts Not Reportable 12/02/16 18:12 Hyposegmented Neuts Not Reportable 12/02/16 18:12 Hypogranular Neuts Not Reportable 12/02/16 18:12 Smudge Cells Not Reportable 12/02/16 18:12 Toxic Granulation Not Reportable 12/02/16 18:12 Toxic Vacuolation Not Reportable 12/02/16 18:12 Dohle Bodies Not Reportable 12/02/16 18:12 Pelger-Huet Anomaly Not Reportable 12/02/16 18:12 Alfonzo Rods Not Reportable 12/02/16 18:12 Platelet Estimate Appears normal 12/02/16 18:12 Clumped Platelets Not Reportable 12/02/16 18:12 Plt Clumps, EDTA Not Reportable 12/02/16 18:12 Large Platelets Not Reportable 12/02/16 18:12 Giant Platelets Not Reportable 12/02/16 18:12 Platelet Satelliting Not Reportable 12/02/16 18:12 Plt Morphology Comment Not Reportable 12/02/16 18:12 RBC Morphology Not Reportable 12/02/16 18:12 Dimorphic RBCs Not Reportable 12/02/16 18:12 Polychromasia Not Reportable 12/02/16 18:12 Hypochromasia Not Reportable 12/02/16 18:12 Poikilocytosis Not Reportable 12/02/16 18:12 Anisocytosis 1+ 12/02/16 18:12 Microcytosis Not Reportable 12/02/16 18:12 Macrocytosis Not Reportable 12/02/16 18:12 Spherocytes Not Reportable 12/02/16 18:12 Pappenheimer Bodies Not Reportable 12/02/16 18:12 Sickle Cells Not Reportable 12/02/16 18:12 Target Cells Not Reportable 12/02/16 18:12 Tear Drop Cells Not Reportable 12/02/16 18:12 Ovalocytes Not Reportable 12/02/16 18:12 Helmet Cells Not Reportable 12/02/16 18:12 Jane-[place] Bodies Not Reportable 12/02/16 18:12 Cando Rings Not Reportable 12/02/16 18:12 [place] Cells Not Reportable 12/02/16 18:12 Bite Cells Not Reportable 12/02/16 18:12 Crenated Cell Not Reportable 12/02/16 18:12 Elliptocytes Few 12/02/16 18:12 Acanthocytes (Spur) Not Reportable 12/02/16 18:12 Rouleaux Not Reportable 12/02/16 18:12 Hemoglobin C Crystals Not Reportable 12/02/16 18:12 Schistocytes Not Reportable 12/02/16 18:12 Malaria parasites Not Reportable 12/02/16 18:12 Maximiliano Bodies Not Reportable 12/02/16 18:12 Hem Pathologist Commnt No 12/02/16 18:12 PT 15.2 Sec. (12.2-14.9) H 12/02/16 18:12 INR 1.21 (0.87-1.13) H 12/02/16 18:12 VBG pH 7.462 (7.320-7.420) H 12/02/16 18:12 Sodium 133 mmol/L (137-145) L 12/02/16 18:12 Potassium 3.7 mmol/L (3.6-5.0) 12/02/16 18:12 Chloride 88.8 mmol/L (98-107) L 12/02/16 18:12 Carbon Dioxide 23 mmol/L (22-30) 12/02/16 18:12 Anion Gap 25 mmol/L 12/02/16 18:12 BUN 15 mg/dL (7-17) 12/02/16 18:12 Creatinine 2.9 mg/dL (0.7-1.2) H 12/02/16 18:12 Estimated GFR 20 ml/min 12/02/16 18:12 BUN/Creatinine Ratio 5.17 % 12/02/16 18:12 Glucose 110 mg/dL (65-100) H 12/02/16 18:12 Lactic Acid 1.00 mmol/L (0.7-2.0) 12/02/16 20:25 Calcium 10.1 mg/dL (8.4-10.2) 12/02/16 18:12 Total Bilirubin 0.50 mg/dL (0.1-1.2) 12/02/16 18:12 AST 36 units/L (5-40) 12/02/16 18:12 ALT 25 units/L (7-56) 12/02/16 18:12 Alkaline Phosphatase 110 units/L (35-129) 12/02/16 18:12 Total Protein 8.3 g/dL (6.3-8.2) H 12/02/16 18:12 Albumin 4.3 g/dL (3.9-5) 12/02/16 18:12 Albumin/Globulin Ratio 1.1 % 12/02/16 18:12 Assessment and Plan - Patient Problems (1) Altered mental status Current Visit: Yes Status: Acute Qualifiers: Altered mental status type: A Coma depth: C Coma timing: C Plan to address problem: Patient will be admitted to medical floor on telemetry and will have nephrology consult with Dr. Lora, she will be on when necessary medications like to Zofran for nausea and vomiting and Tylenol for fever and headache and will have CBC and basic metabolic panel checked this morning, patient will also be on oxygen by nasal cannula 2 L/m (2) Weakness Current Visit: Yes Status: Acute (3) ESRD on hemodialysis Onset Date: 09/23/14 Current Visit: Yes Status: Chronic
[2016-12-03 06:35] LABS: Hematocrit 37.7 % (30.3-42.9); Hemoglobin 11.8 gm/dl (10.1-14.3); Mean Corpuscular HGB Conc 31 % (30-34); Mean Corpuscular Hemoglobin 31 pg (28-32); Mean Corpuscular Volume 98 fl (79-97); Platelet Count 208 K/mm3 (140-440); Red Blood Count 3.86 M/mm3 (3.65-5.03); Red Cell Distribution Width 15.5 % (13.2-15.2); White Blood Count 23.6 K/mm3 (4.5-11.0)
[2016-12-03 06:55] LABS: BUN/Creatinine Ratio 6.51; Calcium 9.4 mg/dL (8.4-10.2); Chloride 88.2 mmol/L (98-107); Potassium 4.1 mmol/L (3.6-5.0)
[2016-12-03] MEDS ORDERED: NON-FORMULARY (Pravastatin Sodium [Pravastatin] 20 MG) PO SCH (10:00)
[2016-12-03] MEDS ORDERED: XANAX PO PRN (11:30)
--- NOTE | 2016-12-03 12:31 | Admit Criteria Form ---
Admission Criteria Documentation: MENTAL STATUS CHANGE Clinical Indications for Inpatient Care (Place 'X' for any and all applicable criteria): Ongoing inpatient care may be needed for 1 or more of the following(1)(2)(3)(5)( 6): [X ]I. Suspected serious etiology (eg, medical disorder, ORTHOPEDIC NURSE PRACTITIONER event) of altered mental status [ ]II. Danger to self or others not manageable at lower level of care [ ]III. Grave disability (eg, inability to perform self care necessary at lower level of care) [ ]IV. Agitation or inappropriate behavior interfering with care for primary condition (eg, attempting to discontinue lines or drains prematurely, unable to cooperate with respiratory care) [ ]V. Delirium [A] [D][E] as described by 1 or more of the following(26): [ ]a) Delirium due to alcohol or sedative [F] withdrawal [ ]b) Delirium of uncertain etiology that has not responded to appropriate empiric treatment [ ]c) Delirium that prevents performance of a life-sustaining function (eg, feeding or hydrating oneself) [X ]. General contraindications and/or Inappropriate clinical situations for Observational Care in patients with Mental Status Change, when ANY ONE of the following is required: [ X]a) Prediction of prolongation of LOS based on ANY ONE of the following may be considered as a contraindication for observational care 2, 3, 4, 5, 6, 7, 8, 9, 10, 11 [X ]i) Age > 65 yrs. [ ]ii) Patient arriving by ambulance [ ]iii) Patient with high acuity [ ]iv) Patient requiring vital sign monitoring [ ]v) Patient on IV medication [ ]b) Systolic blood pressures greater than or equal to 180mmHg 3, 12 [ ]c) Patient with altered mental status including delirium and other alteration of consciousness, (3) [ ]d) Patient whose discharge disposition will be to a prison home or rehabilitation home should not be managed in Emergency Department Observation Unit. CMS rule requires 3 days hospital stay before such placement.3,13 [ ]e) Patient with failure to thrive due to broad array of etiologies 3,16,17 [ ]f) Inability to ambulate 3,14 Extended stay beyond goal length of stay for the primary condition may be needed until ALL of the following are present(3)(5): [ ]a) Underlying medical etiology of mental status change is absent, or has been established and adequately treated [ ]b) Danger to self or others is absent or manageable at lower level of care. [ ]c) Behavior crisis management, including physical or chemical restraints, is not required or available at lower level of car [ ]d) Substance or alcohol withdrawal is absent or manageable at lower level of care. [ ]e) Behavioral symptoms (eg, agitation, somnolence, inappropriate behavior) are absent, or are manageable at lower level of care. The original [facility] content created by [facility] has been revised. The portions of the content which have been revised are identified through the use of italic text or in bold, and [facility] has neither reviewed nor approved the modified material. All other unmodified content is copyright [facility]. Please see references footnoted in the original [facility] edition 2016 Admission Criteria Met: Yes
--- NOTE | 2016-12-03 12:42 | Consultation ---
History of Present Illness - Reason for Consult Consult date: 12/03/16 end stage renal disease Requesting physician: RASHAAD THOMAS - History of Present Illness History of present illness, patient is a 66-year-old female with end-stage renal disease on dialysis 3 times a week, patient had dialysis prior to presentation and started feeling weak and then became lethargic with altered mental status. There there was no history of chest pain or shortness of breath but patient also complained of fever but denied history of cough or headaches Past History Past Medical History: anemia, diabetes, dialysis, ESRD, hypertension, renal failure Past Surgical History: Other (left arm graft) Social history: denies: prescription drug abuse, IV drug use Family history: hypertension Medications and Allergies Allergies Allergy/AdvReac Type Severity Reaction Status Date / Time erythromycin base Allergy Rash Verified 06/17/15 21:56 [Erythromycin Base] lisinopril Allergy Swelling Verified 06/17/15 21:56 Home Medications Medication Instructions Recorded Confirmed Last Taken Type Furosemide 80 mg PO BID 06/18/14 12/02/16 1 Day Ago History Clonidine HCl [Catapres] 0.3 mg PO TID 09/03/15 12/02/16 11/13/16 History ALPRAZolam [Xanax TAB] 0.25 mg PO QDAY PRN 12/02/16 12/02/16 Unknown History Codeine/Butalbital/ASA/Caffein 1 tab PO BID PRN 12/02/16 12/02/16 Unknown History [Butalbital Comp-Codeine #3 Cap] Cyproheptadine [Periactin] 4 mg PO TID 12/02/16 12/02/16 Unknown History Insulin NPH, Human [NovoLIN N] 6 units PO BID 12/02/16 12/02/16 Unknown History Labetalol HCl [Trandate TAB] 300 mg PO TID 12/02/16 12/02/16 Unknown History Mirtazapine [Remeron] 15 mg PO QDAY 12/02/16 12/02/16 Unknown History Omeprazole [Omeprazole] 40 mg PO QDAY 12/02/16 12/02/16 Unknown History Ondansetron [Zofran TAB] 4 mg PO QID PRN 12/02/16 12/02/16 Unknown History Pravastatin Sodium [Pravastatin] 20 mg PO QDAY 12/02/16 12/02/16 Unknown History Sevelamer Carbonate 2 pack PO TID 12/02/16 12/02/16 Unknown History Sodium Polystyrene Sulfonate 15 kg PO 2XW 12/02/16 12/02/16 Unknown History [Kalexate] Vit B Cplx #11/FA/C/Biot/Zn Ox 1 tab PO QDAY 12/02/16 12/02/16 Unknown History [Dialyvite with Zinc Tablet] Active Meds: Active Medications Acetaminophen (Tylenol) 650 mg PO Q4H PRN PRN Reason: Fever Alprazolam (Xanax) 0.25 mg PO QDAY PRN PRN Reason: Anxiety Clonidine HCl (Catapres) 0.3 mg PO TID CALIXTO Mirtazapine (Remeron) 15 mg PO QDAY [place] Ondansetron HCl (Zofran) 4 mg IV Q6H PRN PRN Reason: Nausea And Vomiting Oxycodone/Acetaminophen (Percocet 5/325) 1 tab PO Q6H PRN PRN Reason: Pain, Moderate (4-6) Simvastatin (Zocor) 10 mg PO QHS CALIXTO Review of Systems Constitutional: fatigue, weakness, malaise, lethargy Exam - Vital Signs Vital signs: Vital Signs Pulse Ox 96 12/02/16 17:24 - Physical Exam Narrative exam: General appearance: Present: no acute distress. Absent: disheveled - EENT Eyes: Present: PERRL, EOM intact. Absent: scleral icterus, miosis ENT: hearing intact, no clear oral mucosa, no dentition normal, no oropharyngeal erythema, no edentulous - Neck Neck: Present: supple, normal ROM. Absent: enlarged thyroid, carotid bruits - Respiratory Respiratory effort: normal - Cardiovascular Rhythm: regular Heart Sounds: Present: S1 & S2. Absent: gallop, systolic murmur, diastolic murmur, click - Extremities Extremities: no ischemia Peripheral Pulses: within normal limits - Abdominal General gastrointestinal: Present: soft, non-tender, non-distended. Absent: tender, distended, rigid, hepatomegaly, splenomegaly Female genitourinary: Present: deferred - Rectal Rectal Exam: deferred - Integumentary Integumentary: Present: clear, warm, dry. Absent: erythema, jaundice - Musculoskeletal Musculoskeletal: strength equal bilaterally - Psychiatric Psychiatric: appropriate mood/affect - Neurologic Neurologic: CNII-XII intact Results - Lab Results 12/03/16 05:29 12/03/16 05:29 Most recent lab results Calcium 9.4 mg/dL (8.4-10.2) 12/03/16 05:29 Assessment and Plan Impression: * esrd * hypertension * AMS * anemia in esrd * dm Plan: * HD qTTHSAT * encephalopathy workup per primary team * UF as tolerated * strict i/s * daily weights
[2016-12-03] MEDS ORDERED: NON-FORMULARY (Clonidine Hcl [Catapres] 0.3 MG) PO SCH (14:00)
[2016-12-03] MEDS: CATAPRES PO SCH ×2 (14:55→21:32)
[2016-12-03] MEDS: REMERON PO SCH (14:56)
[2016-12-03] MEDS: PERCOCET 5/325 PO PRN (14:56)
[2016-12-03] MEDS: TYLENOL PO PRN (15:35)
[2016-12-03] MEDS ORDERED: APRESOLINE IV ONE (16:00)
--- NOTE | 2016-12-03 17:17 | Progress Note ---
Assessment and Plan Assessment and plan: Metabolic encephalopathy; resolved Back to baseline, closely monitor, neuro checks --Malignant hypertension; resume home antihypertensives When necessary hydralazine --End-stage renal disease on hemodialysis per schedule Nephrology following --Dental infection; Add amoxicillin, and pain medications, supportive care --Febrile illness; antipyretics, empiric antibiotics, follow cultures, probably secondary to include infection --dyslipidemia; able on lipid-lowering medications --Moderate protein calorie malnutrition; nutrition supplements and supportive care --Dvt prophylaxis with heparin Closely monitor the patient and management as needed plan of care discussed with the patient as well as her nurse DC planning. Case management, to penitentiary versus home health at discharge History Interval history: Patient seen and evaluated in her room this morning medical records reviewed Patient complaints of right-sided pain and tooth ache Denies chest pain or shortness of breath Alert awake oriented 3 not in acute distress Vital signs reviewed Hospitalist Physical - Constitutional Vitals: Temp Pulse Resp BP Pulse Ox 98.8 F 67 20 183/84 98 12/03/16 16:55 12/03/16 16:55 12/03/16 16:55 12/03/16 16:55 12/03/16 16:55 General appearance: Present: no acute distress, cachectic, disheveled - EENT Eyes: Present: PERRL, EOM intact - Neck Neck: Present: supple, normal ROM - Respiratory Respiratory effort: normal Respiratory: bilateral: diminished, negative: rales, rhonchi, wheezing - Cardiovascular Rhythm: regular Heart Sounds: Present: S1 & S2 - Extremities Extremities: no ischemia, pulses intact, pulses symmetrical Peripheral Pulses: within normal limits - Abdominal General gastrointestinal: soft, non-tender, non-distended, normal bowel sounds - Integumentary Integumentary: Present: clear, warm - Psychiatric Psychiatric: appropriate mood/affect, cooperative, other (confused at times) - Neurologic Neurologic: CNII-XII intact, moves all extremities Results - Labs CBC & Chem 7: 12/03/16 05:29 12/03/16 05:29 Labs: Laboratory Last Values WBC 23.6 K/mm3 (4.5-11.0) H 12/03/16 05:29 RBC 3.86 M/mm3 (3.65-5.03) 12/03/16 05:29 Hgb 11.8 gm/dl (10.1-14.3) 12/03/16 05:29 Hct 37.7 % (30.3-42.9) 12/03/16 05:29 MCV 98 fl (79-97) H 12/03/16 05:29 MCH 31 pg (28-32) 12/03/16 05:29 MCHC 31 % (30-34) 12/03/16 05:29 RDW 15.5 % (13.2-15.2) H 12/03/16 05:29 Plt Count 208 K/mm3 (140-440) 12/03/16 05:29 Add Manual Diff Complete 12/02/16 18:12 Total Counted 200 12/02/16 18:12 Seg Neutrophils % Spinning Frame Changer 12/02/16 18:12 Seg Neuts % (Manual) 97.5 % (40.0-70.0) H 12/02/16 18:12 Band Neutrophils % 0 % 12/02/16 18:12 Lymphocytes % (Manual) 1.0 % (13.4-35.0) L 12/02/16 18:12 Reactive Lymphs % (Man) 0 % 12/02/16 18:12 Monocytes % (Manual) 1.5 % (0.0-7.3) 12/02/16 18:12 Eosinophils % (Manual) 0 % (0.0-4.3) 12/02/16 18:12 Basophils % (Manual) 0 % (0.0-1.8) 12/02/16 18:12 Metamyelocytes % 0 % 12/02/16 18:12 Myelocytes % 0 % 12/02/16 18:12 Promyelocytes % 0 % 12/02/16 18:12 Blast Cells % 0 % 12/02/16 18:12 Nucleated RBC % Not Reportable 12/02/16 18:12 Seg Neutrophils # Man 26.6 K/mm3 (1.8-7.7) H 12/02/16 18:12 Band Neutrophils # 0.0 K/mm3 12/02/16 18:12 Lymphocytes # (Manual) 0.3 K/mm3 (1.2-5.4) L 12/02/16 18:12 Abs React Lymphs (Man) 0.0 K/mm3 12/02/16 18:12 Monocytes # (Manual) 0.4 K/mm3 (0.0-0.8) 12/02/16 18:12 Eosinophils # (Manual) 0.0 K/mm3 (0.0-0.4) 12/02/16 18:12 Basophils # (Manual) 0.0 K/mm3 (0.0-0.1) 12/02/16 18:12 Metamyelocytes # 0.0 K/mm3 12/02/16 18:12 Myelocytes # 0.0 K/mm3 12/02/16 18:12 Promyelocytes # 0.0 K/mm3 12/02/16 18:12 Blast Cells # 0.0 K/mm3 12/02/16 18:12 WBC Morphology Not Reportable 12/02/16 18:12 Hypersegmented Neuts Not Reportable 12/02/16 18:12 Hyposegmented Neuts Not Reportable 12/02/16 18:12 Hypogranular Neuts Not Reportable 12/02/16 18:12 Smudge Cells Not Reportable 12/02/16 18:12 Toxic Granulation Not Reportable 12/02/16 18:12 Toxic Vacuolation Not Reportable 12/02/16 18:12 Dohle Bodies Not Reportable 12/02/16 18:12 Pelger-Huet Anomaly Not Reportable 12/02/16 18:12 Alfonzo Rods Not Reportable 12/02/16 18:12 Platelet Estimate Appears normal 12/02/16 18:12 Clumped Platelets Not Reportable 12/02/16 18:12 Plt Clumps, EDTA Not Reportable 12/02/16 18:12 Large Platelets Not Reportable 12/02/16 18:12 Giant Platelets Not Reportable 12/02/16 18:12 Platelet Satelliting Not Reportable 12/02/16 18:12 Plt Morphology Comment Not Reportable 12/02/16 18:12 RBC Morphology Not Reportable 12/02/16 18:12 Dimorphic RBCs Not Reportable 12/02/16 18:12 Polychromasia Not Reportable 12/02/16 18:12 Hypochromasia Not Reportable 12/02/16 18:12 Poikilocytosis Not Reportable 12/02/16 18:12 Anisocytosis 1+ 12/02/16 18:12 Microcytosis Not Reportable 12/02/16 18:12 Macrocytosis Not Reportable 12/02/16 18:12 Spherocytes Not Reportable 12/02/16 18:12 Pappenheimer Bodies Not Reportable 12/02/16 18:12 Sickle Cells Not Reportable 12/02/16 18:12 Target Cells Not Reportable 12/02/16 18:12 Tear Drop Cells Not Reportable 12/02/16 18:12 Ovalocytes Not Reportable 12/02/16 18:12 Helmet Cells Not Reportable 12/02/16 18:12 [place] Bodies Not Reportable 12/02/16 18:12 [place] Rings Not Reportable 12/02/16 18:12 Viral Cells Not Reportable 12/02/16 18:12 Bite Cells Not Reportable 12/02/16 18:12 Crenated Cell Not Reportable 12/02/16 18:12 Elliptocytes Few 12/02/16 18:12 Acanthocytes (Spur) Not Reportable 12/02/16 18:12 Rouleaux Not Reportable 12/02/16 18:12 Hemoglobin C Crystals Not Reportable 12/02/16 18:12 Schistocytes Not Reportable 12/02/16 18:12 Malaria parasites Not Reportable 12/02/16 18:12 Maximiliano Bodies Not Reportable 12/02/16 18:12 Hem Pathologist Commnt No 12/02/16 18:12 PT 15.2 Sec. (12.2-14.9) H 12/02/16 18:12 INR 1.21 (0.87-1.13) H 12/02/16 18:12 VBG pH 7.462 (7.320-7.420) H 12/02/16 18:12 Sodium 135 mmol/L (137-145) L 12/03/16 05:29 Potassium 4.1 mmol/L (3.6-5.0) 12/03/16 05:29 Chloride 88.2 mmol/L (98-107) L 12/03/16 05:29 Carbon Dioxide 20 mmol/L (22-30) L 12/03/16 05:29 Anion Gap 31 mmol/L 12/03/16 05:29 BUN 28 mg/dL (7-17) H 12/03/16 05:29 Creatinine 4.3 mg/dL (0.7-1.2) H 12/03/16 05:29 Estimated GFR 12 ml/min 12/03/16 05:29 BUN/Creatinine Ratio 6.51 % 12/03/16 05:29 Glucose 90 mg/dL (65-100) 12/03/16 05:29 Lactic Acid 1.00 mmol/L (0.7-2.0) 12/02/16 20:25 Calcium 9.4 mg/dL (8.4-10.2) 12/03/16 05:29 Total Bilirubin 0.50 mg/dL (0.1-1.2) 12/02/16 18:12 AST 36 units/L (5-40) 12/02/16 18:12 ALT 25 units/L (7-56) 12/02/16 18:12 Alkaline Phosphatase 110 units/L (35-129) 12/02/16 18:12 Total Protein 8.3 g/dL (6.3-8.2) H 12/02/16 18:12 Albumin 4.3 g/dL (3.9-5) 12/02/16 18:12 Albumin/Globulin Ratio 1.1 % 12/02/16 18:12
[2016-12-03] MEDS ORDERED: APRESOLINE IV PRN (17:26)
[2016-12-03] MEDS ORDERED: AMOXICILLIN ORAL LIQD PO SCH (18:00)
[2016-12-03] MEDS: AUGMENTIN 500 MG PO SCH (21:32)
[2016-12-03] MEDS: APRESOLINE PO SCH (21:32)
[2016-12-03] MEDS: NORMODYNE PO SCH (21:33)
[2016-12-03] MEDS: ZOCOR PO SCH (21:33)
[2016-12-04] MEDS: APRESOLINE PO SCH ×3 (05:48→21:53)
[2016-12-04] MEDS: AUGMENTIN 500 MG PO SCH ×3 (05:48→21:51)
[2016-12-04] MEDS: NORMODYNE PO SCH ×3 (09:46→21:54)
[2016-12-04] MEDS: REMERON PO SCH (09:46)
[2016-12-04] MEDS: CATAPRES PO SCH ×3 (09:51→21:53)
--- NOTE | 2016-12-04 10:47 | Progress Note ---
Assessment and Plan Impression: * esrd * hypertension * AMS * anemia in esrd * dm Plan: * HD qTTHSAT * encephalopathy workup per primary team * dental workup per primary team * UF as tolerated * strict i/s * daily weights Subjective Date of service: 12/04/16 Principal diagnosis: esrd Interval history: resting in bed today Objective - Exam Narrative Exam: General appearance: Present: no acute distress. Absent: disheveled - EENT Eyes: Present: PERRL, EOM intact. Absent: scleral icterus, miosis ENT: hearing intact, no clear oral mucosa, no dentition normal, no oropharyngeal erythema, no edentulous - Neck Neck: Present: supple, normal ROM. Absent: enlarged thyroid, carotid bruits - Respiratory Respiratory effort: normal - Cardiovascular Rhythm: regular Heart Sounds: Present: S1 & S2. Absent: gallop, systolic murmur, diastolic murmur, click - Extremities Extremities: no ischemia Peripheral Pulses: within normal limits - Abdominal General gastrointestinal: Present: soft, non-tender, non-distended. Absent: tender, distended, rigid, hepatomegaly, splenomegaly Female genitourinary: Present: deferred - Rectal Rectal Exam: deferred - Integumentary Integumentary: Present: clear, warm, dry. Absent: erythema, jaundice - Musculoskeletal Musculoskeletal: strength equal bilaterally - Psychiatric Psychiatric: appropriate mood/affect - Neurologic Neurologic: CNII-XII intact - Vital Signs Vital signs: Vital Signs - 12hr 12/04/16 12/04/16 12/04/16 01:00 05:32 08:00 Temperature 100 F H 98.9 F 99.3 F Pulse Rate Pulse Rate [ 91 H 60 89 Right Radial] Respiratory 20 18 20 Rate Blood Pressure Blood Pressure 122/57 126/70 126/61 [Right Arm] O2 Sat by Pulse 100 100 99 Oximetry 12/04/16 12/04/16 09:46 09:51 Temperature Pulse Rate 89 89 Pulse Rate [ Right Radial] Respiratory Rate Blood Pressure 126/61 126/61 Blood Pressure [Right Arm] O2 Sat by Pulse Oximetry - Lab 12/03/16 05:29 12/03/16 05:29 Most recent lab results Calcium 9.4 mg/dL (8.4-10.2) 12/03/16 05:29
[2016-12-04] MEDS ORDERED: MOTRIN PO PRN (12:47)
--- NOTE | 2016-12-04 12:50 | Progress Note ---
Assessment and Plan Assessment and plan: --Dental ? Abscess/cellulitis jaw patient needs to follow with dentist for further evaluation and management I checked with the administration, no dental services available Continue Augmentin, anti-inflammatory pain medications --Leukocytosis; secondary to dental infection, slowly trending down, just negative to date --Metabolic encephalopathy; resolved --Malignant hypertension; well controlled, continue current antihypertensives and When necessary hydralazine --End-stage renal disease on hemodialysis per schedule ,Nephrology following --Febrile illness; antipyretics, empiric antibiotics, febrile today --dyslipidemia; able on lipid-lowering medications --Moderate protein calorie malnutrition; nutrition supplements and supportive care --Dvt prophylaxis with heparin Will discharge the patient home tomorrow on oral antibiotics and pain medications And patient will follow-up with dentist for further evaluation and management of right lower jaw cellulitis/tooth abscess Plan of care discussed with the patient verbalized understanding History Interval history: Patient seen and evaluated medical records reviewed No new events reported by the nursing staff Patient feels better, has right lower tooth infection and swelling Alert awake oriented 3 not in acute distress, vital signs stable Afebrile Hospitalist Physical - Constitutional Vitals: Temp Pulse Resp BP Pulse Ox 99.3 F 89 20 126/61 99 12/04/16 08:00 12/04/16 09:51 12/04/16 08:00 12/04/16 09:51 12/04/16 08:00 General appearance: Present: no acute distress, cachectic, disheveled - EENT Eyes: Present: PERRL, EOM intact ENT: poor dentition (cellulitis/abscess right lower jaw), other - Neck Neck: Present: supple, normal ROM - Respiratory Respiratory effort: normal Respiratory: negative: rales, rhonchi, wheezing - Cardiovascular Rhythm: regular Heart Sounds: Present: S1 & S2 - Extremities Extremities: no ischemia, No edema Peripheral Pulses: within normal limits - Abdominal General gastrointestinal: soft, non-tender, non-distended, normal bowel sounds - Integumentary Integumentary: Present: clear, warm - Psychiatric Psychiatric: appropriate mood/affect, cooperative - Neurologic Neurologic: CNII-XII intact, moves all extremities Results - Labs CBC & Chem 7: 12/03/16 05:29 12/03/16 05:29 Labs: Laboratory Last Values WBC 23.6 K/mm3 (4.5-11.0) H 12/03/16 05:29 RBC 3.86 M/mm3 (3.65-5.03) 12/03/16 05:29 Hgb 11.8 gm/dl (10.1-14.3) 12/03/16 05:29 Hct 37.7 % (30.3-42.9) 12/03/16 05:29 MCV 98 fl (79-97) H 12/03/16 05:29 MCH 31 pg (28-32) 12/03/16 05:29 MCHC 31 % (30-34) 12/03/16 05:29 RDW 15.5 % (13.2-15.2) H 12/03/16 05:29 Plt Count 208 K/mm3 (140-440) 12/03/16 05:29 Add Manual Diff Complete 12/02/16 18:12 Total Counted 200 12/02/16 18:12 Seg Neutrophils % Radiology Therapist 12/02/16 18:12 Seg Neuts % (Manual) 97.5 % (40.0-70.0) H 12/02/16 18:12 Band Neutrophils % 0 % 12/02/16 18:12 Lymphocytes % (Manual) 1.0 % (13.4-35.0) L 12/02/16 18:12 Reactive Lymphs % (Man) 0 % 12/02/16 18:12 Monocytes % (Manual) 1.5 % (0.0-7.3) 12/02/16 18:12 Eosinophils % (Manual) 0 % (0.0-4.3) 12/02/16 18:12 Basophils % (Manual) 0 % (0.0-1.8) 12/02/16 18:12 Metamyelocytes % 0 % 12/02/16 18:12 Myelocytes % 0 % 12/02/16 18:12 Promyelocytes % 0 % 12/02/16 18:12 Blast Cells % 0 % 12/02/16 18:12 Nucleated RBC % Not Reportable 12/02/16 18:12 Seg Neutrophils # Man 26.6 K/mm3 (1.8-7.7) H 12/02/16 18:12 Band Neutrophils # 0.0 K/mm3 12/02/16 18:12 Lymphocytes # (Manual) 0.3 K/mm3 (1.2-5.4) L 12/02/16 18:12 Abs React Lymphs (Man) 0.0 K/mm3 12/02/16 18:12 Monocytes # (Manual) 0.4 K/mm3 (0.0-0.8) 12/02/16 18:12 Eosinophils # (Manual) 0.0 K/mm3 (0.0-0.4) 12/02/16 18:12 Basophils # (Manual) 0.0 K/mm3 (0.0-0.1) 12/02/16 18:12 Metamyelocytes # 0.0 K/mm3 12/02/16 18:12 Myelocytes # 0.0 K/mm3 12/02/16 18:12 Promyelocytes # 0.0 K/mm3 12/02/16 18:12 Blast Cells # 0.0 K/mm3 12/02/16 18:12 WBC Morphology Not Reportable 12/02/16 18:12 Hypersegmented Neuts Not Reportable 12/02/16 18:12 Hyposegmented Neuts Not Reportable 12/02/16 18:12 Hypogranular Neuts Not Reportable 12/02/16 18:12 Smudge Cells Not Reportable 12/02/16 18:12 Toxic Granulation Not Reportable 12/02/16 18:12 Toxic Vacuolation Not Reportable 12/02/16 18:12 Dohle Bodies Not Reportable 12/02/16 18:12 Pelger-Huet Anomaly Not Reportable 12/02/16 18:12 Alfonzo Rods Not Reportable 12/02/16 18:12 Platelet Estimate Appears normal 12/02/16 18:12 Clumped Platelets Not Reportable 12/02/16 18:12 Plt Clumps, EDTA Not Reportable 12/02/16 18:12 Large Platelets Not Reportable 12/02/16 18:12 Giant Platelets Not Reportable 12/02/16 18:12 Platelet Satelliting Not Reportable 12/02/16 18:12 Plt Morphology Comment Not Reportable 12/02/16 18:12 RBC Morphology Not Reportable 12/02/16 18:12 Dimorphic RBCs Not Reportable 12/02/16 18:12 Polychromasia Not Reportable 12/02/16 18:12 Hypochromasia Not Reportable 12/02/16 18:12 Poikilocytosis Not Reportable 12/02/16 18:12 Anisocytosis 1+ 12/02/16 18:12 Microcytosis Not Reportable 12/02/16 18:12 Macrocytosis Not Reportable 12/02/16 18:12 Spherocytes Not Reportable 12/02/16 18:12 Pappenheimer Bodies Not Reportable 12/02/16 18:12 Sickle Cells Not Reportable 12/02/16 18:12 Target Cells Not Reportable 12/02/16 18:12 Tear Drop Cells Not Reportable 12/02/16 18:12 Ovalocytes Not Reportable 12/02/16 18:12 Helmet Cells Not Reportable 12/02/16 18:12 [place] Bodies Not Reportable 12/02/16 18:12 [place] Rings Not Reportable 12/02/16 18:12 Viral Cells Not Reportable 12/02/16 18:12 Bite Cells Not Reportable 12/02/16 18:12 Crenated Cell Not Reportable 12/02/16 18:12 Elliptocytes Few 12/02/16 18:12 Acanthocytes (Spur) Not Reportable 12/02/16 18:12 Rouleaux Not Reportable 12/02/16 18:12 Hemoglobin C Crystals Not Reportable 12/02/16 18:12 Schistocytes Not Reportable 12/02/16 18:12 Malaria parasites Not Reportable 12/02/16 18:12 Maximiliano Bodies Not Reportable 12/02/16 18:12 Hem Pathologist Commnt No 12/02/16 18:12 PT 15.2 Sec. (12.2-14.9) H 12/02/16 18:12 INR 1.21 (0.87-1.13) H 12/02/16 18:12 VBG pH 7.462 (7.320-7.420) H 12/02/16 18:12 Sodium 135 mmol/L (137-145) L 12/03/16 05:29 Potassium 4.1 mmol/L (3.6-5.0) 12/03/16 05:29 Chloride 88.2 mmol/L (98-107) L 12/03/16 05:29 Carbon Dioxide 20 mmol/L (22-30) L 12/03/16 05:29 Anion Gap 31 mmol/L 12/03/16 05:29 BUN 28 mg/dL (7-17) H 12/03/16 05:29 Creatinine 4.3 mg/dL (0.7-1.2) H 12/03/16 05:29 Estimated GFR 12 ml/min 12/03/16 05:29 BUN/Creatinine Ratio 6.51 % 12/03/16 05:29 Glucose 90 mg/dL (65-100) 12/03/16 05:29 Lactic Acid 1.00 mmol/L (0.7-2.0) 12/02/16 20:25 Calcium 9.4 mg/dL (8.4-10.2) 12/03/16 05:29 Total Bilirubin 0.50 mg/dL (0.1-1.2) 12/02/16 18:12 AST 36 units/L (5-40) 12/02/16 18:12 ALT 25 units/L (7-56) 12/02/16 18:12 Alkaline Phosphatase 110 units/L (35-129) 12/02/16 18:12 Total Protein 8.3 g/dL (6.3-8.2) H 12/02/16 18:12 Albumin 4.3 g/dL (3.9-5) 12/02/16 18:12 Albumin/Globulin Ratio 1.1 % 12/02/16 18:12 Plasma/Serum Alcohol < 0.01 gm% (0-0.07) 12/03/16 17:01
[2016-12-04] MEDS: ROBITUSSIN DM PO PRN (21:49)
[2016-12-04] MEDS: PERCOCET 5/325 PO PRN (21:52)
[2016-12-04] MEDS: ZOCOR PO SCH (21:54)
[2016-12-05] MEDS: AUGMENTIN 500 MG PO SCH ×3 (06:56→22:22)
[2016-12-05] MEDS: APRESOLINE PO SCH ×3 (07:00→22:22)
[2016-12-05] MEDS: REMERON PO SCH (10:04)
[2016-12-05] MEDS: NORMODYNE PO SCH ×4 (10:04→22:22)
--- NOTE | 2016-12-05 10:20 | Progress Note ---
Assessment and Plan Assessment and plan: --Dental ?Abscess/cellulitis jaw Mild improvement, Continue Augmentin, anti-inflammatory pain medications Possible discharge tomorrow, and patient will see dentist for further evaluation and management --Leukocytosis; secondary to dental infection, trending down --Metabolic encephalopathy; resolved --Malignant hypertension; well controlled, continue current antihypertensives and When necessary hydralazine --End-stage renal disease on hemodialysis per schedule TThSat,Nephrology following Did not receive dialysis yesterday, possibly HD today --Febrile illness; resolved --dyslipidemia; stable on lipid-lowering medications --Moderate protein calorie malnutrition; nutrition supplements and supportive care --Dvt prophylaxis with heparin She is scheduled for hemodialysis today per nephrology , possible discharge home tomorrow if stable Plan of care discussed with the patient verbalized understanding History Interval history: Patient seen and evaluated Medical records reviewed Right jaw swelling, slightly improved, still complains of some pain Afebrile, alert, awake, oriented 3, not in acute distress Patient did not receive hemodialysis yesterday, possible HD today I discussed with Dr. Schmidt Hospitalist Physical - Constitutional Vitals: Temp Pulse Resp BP Pulse Ox 98.2 F 83 20 122/58 100 12/05/16 08:35 12/05/16 08:35 12/05/16 08:35 12/05/16 08:35 12/05/16 08:35 General appearance: Present: no acute distress, cachectic, disheveled - EENT Eyes: Present: PERRL, EOM intact ENT: other (swelling right lower jaw/possible abscess) - Neck Neck: Present: normal ROM - Respiratory Respiratory effort: normal Respiratory: negative: rales, rhonchi, wheezing - Cardiovascular Rhythm: regular Heart Sounds: Present: S1 & S2 - Extremities Extremities: no ischemia, No edema - Abdominal General gastrointestinal: soft, non-tender, non-distended, normal bowel sounds - Integumentary Integumentary: Present: clear, warm - Psychiatric Psychiatric: appropriate mood/affect, cooperative - Neurologic Neurologic: CNII-XII intact, moves all extremities Results - Labs CBC & Chem 7: 12/05/16 11:50 12/05/16 11:50 Labs: Laboratory Last Values WBC 23.6 K/mm3 (4.5-11.0) H 12/03/16 05:29 RBC 3.86 M/mm3 (3.65-5.03) 12/03/16 05:29 Hgb 11.8 gm/dl (10.1-14.3) 12/03/16 05:29 Hct 37.7 % (30.3-42.9) 12/03/16 05:29 MCV 98 fl (79-97) H 12/03/16 05:29 MCH 31 pg (28-32) 12/03/16 05:29 MCHC 31 % (30-34) 12/03/16 05:29 RDW 15.5 % (13.2-15.2) H 12/03/16 05:29 Plt Count 208 K/mm3 (140-440) 12/03/16 05:29 Add Manual Diff Complete 12/02/16 18:12 Total Counted 200 12/02/16 18:12 Seg Neutrophils % Screen Printing Cloth Spreader 12/02/16 18:12 Seg Neuts % (Manual) 97.5 % (40.0-70.0) H 12/02/16 18:12 Band Neutrophils % 0 % 12/02/16 18:12 Lymphocytes % (Manual) 1.0 % (13.4-35.0) L 12/02/16 18:12 Reactive Lymphs % (Man) 0 % 12/02/16 18:12 Monocytes % (Manual) 1.5 % (0.0-7.3) 12/02/16 18:12 Eosinophils % (Manual) 0 % (0.0-4.3) 12/02/16 18:12 Basophils % (Manual) 0 % (0.0-1.8) 12/02/16 18:12 Metamyelocytes % 0 % 12/02/16 18:12 Myelocytes % 0 % 12/02/16 18:12 Promyelocytes % 0 % 12/02/16 18:12 Blast Cells % 0 % 12/02/16 18:12 Nucleated RBC % Not Reportable 12/02/16 18:12 Seg Neutrophils # Man 26.6 K/mm3 (1.8-7.7) H 12/02/16 18:12 Band Neutrophils # 0.0 K/mm3 12/02/16 18:12 Lymphocytes # (Manual) 0.3 K/mm3 (1.2-5.4) L 12/02/16 18:12 Abs React Lymphs (Man) 0.0 K/mm3 12/02/16 18:12 Monocytes # (Manual) 0.4 K/mm3 (0.0-0.8) 12/02/16 18:12 Eosinophils # (Manual) 0.0 K/mm3 (0.0-0.4) 12/02/16 18:12 Basophils # (Manual) 0.0 K/mm3 (0.0-0.1) 12/02/16 18:12 Metamyelocytes # 0.0 K/mm3 12/02/16 18:12 Myelocytes # 0.0 K/mm3 12/02/16 18:12 Promyelocytes # 0.0 K/mm3 12/02/16 18:12 Blast Cells # 0.0 K/mm3 12/02/16 18:12 WBC Morphology Not Reportable 12/02/16 18:12 Hypersegmented Neuts Not Reportable 12/02/16 18:12 Hyposegmented Neuts Not Reportable 12/02/16 18:12 Hypogranular Neuts Not Reportable 12/02/16 18:12 Smudge Cells Not Reportable 12/02/16 18:12 Toxic Granulation Not Reportable 12/02/16 18:12 Toxic Vacuolation Not Reportable 12/02/16 18:12 Dohle Bodies Not Reportable 12/02/16 18:12 Pelger-Huet Anomaly Not Reportable 12/02/16 18:12 Alfonzo Rods Not Reportable 12/02/16 18:12 Platelet Estimate Appears normal 12/02/16 18:12 Clumped Platelets Not Reportable 12/02/16 18:12 Plt Clumps, EDTA Not Reportable 12/02/16 18:12 Large Platelets Not Reportable 12/02/16 18:12 Giant Platelets Not Reportable 12/02/16 18:12 Platelet Satelliting Not Reportable 12/02/16 18:12 Plt Morphology Comment Not Reportable 12/02/16 18:12 RBC Morphology Not Reportable 12/02/16 18:12 Dimorphic RBCs Not Reportable 12/02/16 18:12 Polychromasia Not Reportable 12/02/16 18:12 Hypochromasia Not Reportable 12/02/16 18:12 Poikilocytosis Not Reportable 12/02/16 18:12 Anisocytosis 1+ 12/02/16 18:12 Microcytosis Not Reportable 12/02/16 18:12 Macrocytosis Not Reportable 12/02/16 18:12 Spherocytes Not Reportable 12/02/16 18:12 Pappenheimer Bodies Not Reportable 12/02/16 18:12 Sickle Cells Not Reportable 12/02/16 18:12 Target Cells Not Reportable 12/02/16 18:12 Tear Drop Cells Not Reportable 12/02/16 18:12 Ovalocytes Not Reportable 12/02/16 18:12 Helmet Cells Not Reportable 12/02/16 18:12 [place] Bodies Not Reportable 12/02/16 18:12 [place] Rings Not Reportable 12/02/16 18:12 [place] Cells Not Reportable 12/02/16 18:12 Bite Cells Not Reportable 12/02/16 18:12 Crenated Cell Not Reportable 12/02/16 18:12 Elliptocytes Few 12/02/16 18:12 Acanthocytes (Spur) Not Reportable 12/02/16 18:12 Rouleaux Not Reportable 12/02/16 18:12 Hemoglobin C Crystals Not Reportable 12/02/16 18:12 Schistocytes Not Reportable 12/02/16 18:12 Malaria parasites Not Reportable 12/02/16 18:12 Maximiliano Bodies Not Reportable 12/02/16 18:12 Hem Pathologist Commnt No 12/02/16 18:12 PT 15.2 Sec. (12.2-14.9) H 12/02/16 18:12 INR 1.21 (0.87-1.13) H 12/02/16 18:12 VBG pH 7.462 (7.320-7.420) H 12/02/16 18:12 Sodium 135 mmol/L (137-145) L 12/03/16 05:29 Potassium 4.1 mmol/L (3.6-5.0) 12/03/16 05:29 Chloride 88.2 mmol/L (98-107) L 12/03/16 05:29 Carbon Dioxide 20 mmol/L (22-30) L 12/03/16 05:29 Anion Gap 31 mmol/L 12/03/16 05:29 BUN 28 mg/dL (7-17) H 12/03/16 05:29 Creatinine 4.3 mg/dL (0.7-1.2) H 12/03/16 05:29 Estimated GFR 12 ml/min 12/03/16 05:29 BUN/Creatinine Ratio 6.51 % 12/03/16 05:29 Glucose 90 mg/dL (65-100) 12/03/16 05:29 Lactic Acid 1.00 mmol/L (0.7-2.0) 12/02/16 20:25 Calcium 9.4 mg/dL (8.4-10.2) 12/03/16 05:29 Total Bilirubin 0.50 mg/dL (0.1-1.2) 12/02/16 18:12 AST 36 units/L (5-40) 12/02/16 18:12 ALT 25 units/L (7-56) 12/02/16 18:12 Alkaline Phosphatase 110 units/L (35-129) 12/02/16 18:12 Total Protein 8.3 g/dL (6.3-8.2) H 12/02/16 18:12 Albumin 4.3 g/dL (3.9-5) 12/02/16 18:12 Albumin/Globulin Ratio 1.1 % 12/02/16 18:12 Plasma/Serum Alcohol < 0.01 gm% (0-0.07) 12/03/16 17:01
[2016-12-05] MEDS: CATAPRES PO SCH ×3 (10:35→22:23)
--- NOTE | 2016-12-05 12:28 | Progress Note ---
Assessment and Plan Impression: * esrd * hypertension * AMS * anemia in esrd * dm Plan: * HD qTTHSAT--was not dialyzed yesterday will plan on hd today * encephalopathy workup per primary team * dental workup per primary team * UF as tolerated * strict i/s * daily weights * rehab evaluation, may need rehab placement Subjective Date of service: 12/05/16 Principal diagnosis: esrd Interval history: resting in bed today Objective - Exam Narrative Exam: General appearance: Present: no acute distress. Absent: disheveled - EENT Eyes: Present: PERRL, EOM intact. Absent: scleral icterus, miosis ENT: hearing intact, no clear oral mucosa, no dentition normal, no oropharyngeal erythema, no edentulous - Neck Neck: Present: supple, normal ROM. Absent: enlarged thyroid, carotid bruits - Respiratory Respiratory effort: normal - Cardiovascular Rhythm: regular Heart Sounds: Present: S1 & S2. Absent: gallop, systolic murmur, diastolic murmur, click - Extremities Extremities: no ischemia Peripheral Pulses: within normal limits - Abdominal General gastrointestinal: Present: soft, non-tender, non-distended. Absent: tender, distended, rigid, hepatomegaly, splenomegaly Female genitourinary: Present: deferred - Rectal Rectal Exam: deferred - Integumentary Integumentary: Present: clear, warm, dry. Absent: erythema, jaundice - Musculoskeletal Musculoskeletal: strength equal bilaterally - Psychiatric Psychiatric: appropriate mood/affect - Neurologic Neurologic: CNII-XII intact - Vital Signs Vital signs: Vital Signs - 12hr 12/05/16 12/05/16 12/05/16 00:49 05:06 07:00 Temperature 98.6 F 97.6 F Pulse Rate 82 Pulse Rate [ 84 82 Right Radial] Respiratory 18 18 Rate Blood Pressure 128/65 Blood Pressure 149/65 128/65 [Right Arm] O2 Sat by Pulse 100 95 Oximetry 12/05/16 12/05/16 12/05/16 08:35 10:21 11:03 Temperature 98.2 F Pulse Rate 84 Pulse Rate [ 83 Right Radial] Respiratory 20 20 Rate Blood Pressure Blood Pressure 122/58 [Right Arm] O2 Sat by Pulse 100 95 Oximetry - Lab 12/05/16 11:50 12/05/16 11:50 Most recent lab results Calcium 9.4 mg/dL (8.4-10.2) 12/03/16 05:29
[2016-12-05 12:31] LABS: Basophils % (Auto) 0.1 % (0.0-1.8); Eosinophils % (Auto) 0.9 % (0.0-4.3); Hematocrit 36.5 % (30.3-42.9); Mean Corpuscular HGB Conc 33 % (30-34); Mean Corpuscular Hemoglobin 32 pg (28-32); Mean Corpuscular Volume 96 fl (79-97); Platelet Count 230 K/mm3 (140-440); Red Cell Distribution Width 15.5 % (13.2-15.2); White Blood Count 9.2 K/mm3 (4.5-11.0)
[2016-12-05 12:46] LABS: BUN/Creatinine Ratio 9.05; Calcium 9.9 mg/dL (8.4-10.2); Chloride 85.5 mmol/L (98-107); Potassium 4.8 mmol/L (3.6-5.0)
[2016-12-05] MEDS ORDERED: NACL 0.9% 100 ML IV PRN (13:26)
[2016-12-05] MEDS ORDERED: NACL 0.9 (PRIMING MACHINE ONLY DIALYSIS) MC ONE (18:15)
[2016-12-05] MEDS: ZOCOR PO SCH (22:22)
[2016-12-06] MEDS: TYLENOL PO PRN (00:29)
[2016-12-06] MEDS: APRESOLINE PO SCH ×3 (06:19→21:37)
[2016-12-06] MEDS: AUGMENTIN 500 MG PO SCH (06:20)
--- NOTE | 2016-12-06 09:41 | Progress Note ---
Assessment and Plan Impression: * esrd * hypertension * AMS * anemia in esrd * dm Plan: * HD qTTHSAT * encephalopathy workup per primary team * dental workup per primary team * UF as tolerated * strict i/s * daily weights * rehab evaluation, may need rehab placement * stable from renal standpoint Subjective Date of service: 12/06/16 Principal diagnosis: esrd Interval history: resting in bed today Objective - Exam Narrative Exam: General appearance: Present: no acute distress. Absent: disheveled - EENT Eyes: Present: PERRL, EOM intact. Absent: scleral icterus, miosis ENT: hearing intact, no clear oral mucosa, no dentition normal, no oropharyngeal erythema, no edentulous - Neck Neck: Present: supple, normal ROM. Absent: enlarged thyroid, carotid bruits - Respiratory Respiratory effort: normal - Cardiovascular Rhythm: regular Heart Sounds: Present: S1 & S2. Absent: gallop, systolic murmur, diastolic murmur, click - Extremities Extremities: no ischemia Peripheral Pulses: within normal limits - Abdominal General gastrointestinal: Present: soft, non-tender, non-distended. Absent: tender, distended, rigid, hepatomegaly, splenomegaly Female genitourinary: Present: deferred - Rectal Rectal Exam: deferred - Integumentary Integumentary: Present: clear, warm, dry. Absent: erythema, jaundice - Musculoskeletal Musculoskeletal: strength equal bilaterally - Psychiatric Psychiatric: appropriate mood/affect - Neurologic Neurologic: CNII-XII intact - Vital Signs Vital signs: Vital Signs - 12hr 12/05/16 12/05/16 12/06/16 22:12 22:22 00:29 Temperature Pulse Rate 97 H Pulse Rate [ Right Radial] Respiratory 18 18 Rate Blood Pressure 169/76 Blood Pressure [Right Arm] O2 Sat by Pulse Oximetry 12/06/16 12/06/16 12/06/16 00:37 04:20 06:19 Temperature 100.8 F H 98.7 F Pulse Rate 89 Pulse Rate [ 104 H 101 H Right Radial] Respiratory 16 16 Rate Blood Pressure 127/63 Blood Pressure 138/64 120/59 [Right Arm] O2 Sat by Pulse 100 99 Oximetry 12/06/16 08:10 Temperature Pulse Rate 91 H Pulse Rate [ Right Radial] Respiratory Rate Blood Pressure Blood Pressure [Right Arm] O2 Sat by Pulse Oximetry - Lab 12/05/16 11:50 12/05/16 11:50 Most recent lab results Calcium 9.9 mg/dL (8.4-10.2) 12/05/16 11:50
[2016-12-06] MEDS: CATAPRES PO SCH ×3 (11:11→20:24)
[2016-12-06] MEDS: REMERON PO SCH (11:11)
[2016-12-06] MEDS: NORMODYNE PO SCH ×3 (11:11→20:03)
--- NOTE | 2016-12-06 12:43 | Query-Infection ---
Mamie Zapata____Fatemeh Date:____12/06/16 Phonograph Mechanic/CDS:___[place] Phone#:___[phone] Exercise your independent professional judgment when responding to this query. Questions asked do not imply a particular answer is desired or expected. We greatly appreciate your clarification on this issue. Clinical Documentation States: 66 year old female was admitted on 12/02/16. The hospitalist progress note (12/05/16) states " Assessment and plan: --Dental ?Abscess/cellulitis jaw Mild improvement, Continue Augmentin, anti-inflammatory pain medications Possible discharge tomorrow, and patient will see dentist for further evaluation and management Leukocytosis; secondary to dental infection, trending down Metabolic encephalopathy; resolved " WBC: 27.3 Temperature: 103 Clinical findings show: (please check applicable parameters) Infection, known /suspected, with some of the following indicators; Specify the infection: 3 General parameters [x] Fever (core temp >38.30C or 100.40F) [ ] Hypothermia (core temp <36C) [ ] Heart rate >90 bpm [ ] Tachypnea: >20 bpm or pCO2 < 32 mmHg [ ] Altered mental status [ ] Significant edema / +ve fluid balance (>20 ml/kg 24 h) [ ] Hyperglycemia (Bl. glucose >110 mg/dl) w/o diabetes Inflammatory parameters [x] Leukocytosis (white blood cell count >12,000/l) [ ] Leukopenia (white blood cell count <4,000/l) [ ] Bandemia (immature WBC > 10%) [ ] Leucocyte Left Shift [ ] Plasma procalcitonin>2 SD above the normal value Hemodynamic and tissue perfusion parameters [ ] Arterial hypotension(SBP <90 mmHg, MAP <70 mmHg,or a SBP drop >40 mmHg in adults) [ ] Hyperlactatemia (>3 mmol/l) [ ] Anion Gap (> 11mEG/l) [ ] Decreased capillary refill or mottling Organ dysfunction parameters [ ] Arterial hypoxemia (PaO2/FIO2 <300) [ ] Creatinine increase =0.5 mg/dl [ ] Acute oliguria (urine output <0.5 ml | kg |h or 45 mM/l for at least 2 hrs) [ ] Coagulation abnormalities (INR >1.5 or activated partial thromboplastin time >60 s) [ ] Ileus (absent mick wel sounds) [ ] Thrombocytopenia (platelet count <100,000/l) [ ] Hyperbilirubinemia (plasma total bilirubin >4 mg/dl) According to the clinical indications above, can Bacteremia be further specified? If so, please indicate below and in your Progress Notes and/ or Discharge Summary. Indicate if the condition was present on admission. PHYSICIAN RESPONSE: [ ] Sepsis [ ] Severe Sepsis [ ] Septic Shock [ ] Septicemia [ ] Sepsis now resolved [ ] SIRS due to non-infectious cause with organ dysfunction [ ] SIRS due to non-infectious cause without organ dysfunction [x ] Other: Sepsis secondary to dental infection [ ] Comment/Explanation: Present on Admission: [ x] Yes (Y) [ ] Clinically undeterminable (W) [ ] No (N) [ ] Ruled Out Please also document response in your Progress Notes and/or Discharge Summary and indicate if the condition was present on admission Notes: SIRS/ SIRS WITH ORGAN DYSFUNCTION Systemic inflammatory response syndrome (SIRS) generally refers to the systemic response to trauma/ibarra or other insult such as Acute Myocardial Infarction, Acute Pancreatitis, and Major Surgery with symptoms including fever, tachycardia , tachypnea, and leukocytosis (1). BACTEREMIA Presence of viable bacteria in the circulating blood (2). This term is reserved for patients that do not manifest above SIRS response. SEPTICEMIA Generally refers to a systemic disease associated with the presence of pathological microorganisms or toxins in the blood, which can include bacteria, viruses, fungi or other organisms (1). SEPSIS Generally refers to SIRS due infection (1). SEVERE SEPSIS Generally refers to sepsis associated with acute organ dysfunction (1). SEPTIC SHOCK Generally refers to circulatory failure associated with severe sepsis (2), and defined as hypotension or hypoperfusion despite adequate fluid resuscitation (1 hour) (3). REFERENCES: 1. [place] [employer]/Society of Critical Care Medicine Consensus Conference. Definitions for sepsis and organ failure and guidelines for the use of innovative therapies in sepsis. Critical Care Med 1992;20:864 - 74. 2. Erik aquino MM, Andrez RIVERA, Delio DEAN, Leeroy E, Feng Roca, Radhames D, Kvng J, [place] SM , Kyle JL, Basil G; International Sepsis Definitions Conference. 2001 SCCM/ESICM/ACCP/ATS/SIS International Sepsis Definitions Conference. Intensive Care Med. 2002;29(4):530-8. Epub 2002Aug 17. Review. PubMed PMID:[id number] 3. ICD-9-CM Official Guidelines for Coding and Reporting 4. Medscape Drugs, Diseases and Procedures references 5. [employer] Textbook of Internal Medicine. 18th Edition MTDD
[2016-12-06] MEDS: PERCOCET 5/325 PO PRN (14:30)
--- NOTE | 2016-12-06 18:16 | Progress Note ---
Assessment and Plan Assessment and plan: --End-stage renal disease on hemodialysis per schedule TThSat,Nephrology following --Febrile illness; dental abscess , cellulitis ,resolved --Dental ?Abscess/cellulitis jaw Mild improvement, Continue Augmentin, anti-inflammatory pain medications patient needs to see outpatient dentist for further evaluation and management Inpatient dental services not available --Leukocytosis; secondary to dental infection, trending down --Metabolic encephalopathy; resolved --Malignant hypertension; well controlled, continue current antihypertensives and When necessary hydralazine --dyslipidemia; stable on lipid-lowering medications --Moderate protein calorie malnutrition; nutrition supplements and supportive care --Dvt prophylaxis with heparin --DC planning and case management, possible placement She is medically stable, can be discharged when placement is set up. Plan of care discussed with the patient and her nurse verbalized understanding also discussed the case with case management for placement History Interval history: Patient seen and evaluated medical records reviewed No new events reported by the nursing staff Patient received hemodialysis yesterday, alert awake oriented 3 not in acute distress Right jaw swelling show slight improvement Hospitalist Physical - Constitutional Vitals: Temp Pulse Resp BP Pulse Ox 99.0 F 90 20 146/69 95 12/06/16 12:57 12/06/16 12:57 12/06/16 12:57 12/06/16 12:57 12/06/16 12:57 General appearance: Present: no acute distress, cachectic, disheveled - EENT Eyes: Present: PERRL, EOM intact - Neck Neck: Present: supple, normal ROM - Respiratory Respiratory effort: normal, labored Respiratory: bilateral: diminished, negative: rales, rhonchi, wheezing - Cardiovascular Rhythm: regular Heart Sounds: Present: S1 & S2 - Extremities Extremities: no ischemia, pulses intact, pulses symmetrical Peripheral Pulses: within normal limits - Abdominal General gastrointestinal: soft, non-tender, non-distended, normal bowel sounds - Integumentary Integumentary: Present: clear, warm - Psychiatric Psychiatric: appropriate mood/affect, cooperative - Neurologic Neurologic: CNII-XII intact, moves all extremities Results - Labs CBC & Chem 7: 12/05/16 11:50 12/05/16 11:50 Labs: Laboratory Last Values WBC 9.2 K/mm3 (4.5-11.0) 12/05/16 11:50 RBC 3.80 M/mm3 (3.65-5.03) 12/05/16 11:50 Hgb 12.0 gm/dl (10.1-14.3) 12/05/16 11:50 Hct 36.5 % (30.3-42.9) 12/05/16 11:50 MCV 96 fl (79-97) 12/05/16 11:50 MCH 32 pg (28-32) 12/05/16 11:50 MCHC 33 % (30-34) 12/05/16 11:50 RDW 15.5 % (13.2-15.2) H 12/05/16 11:50 Plt Count 230 K/mm3 (140-440) 12/05/16 11:50 Lymph % (Auto) 2.3 % (13.4-35.0) L 12/05/16 11:50 [place] % (Auto) 11.5 % (0.0-7.3) H 12/05/16 11:50 Eos % (Auto) 0.9 % (0.0-4.3) 12/05/16 11:50 Baso % (Auto) 0.1 % (0.0-1.8) 12/05/16 11:50 Lymph # 0.2 K/mm3 (1.2-5.4) L 12/05/16 11:50 [place] # 1.1 K/mm3 (0.0-0.8) H 12/05/16 11:50 Eos # 0.1 K/mm3 (0.0-0.4) 12/05/16 11:50 Baso # 0.0 K/mm3 (0.0-0.1) 12/05/16 11:50 Add Manual Diff Complete 12/02/16 18:12 Total Counted 200 12/02/16 18:12 Seg Neutrophils % 85.2 % (40.0-70.0) H 12/05/16 11:50 Seg Neuts % (Manual) 97.5 % (40.0-70.0) H 12/02/16 18:12 Band Neutrophils % 0 % 12/02/16 18:12 Lymphocytes % (Manual) 1.0 % (13.4-35.0) L 12/02/16 18:12 Reactive Lymphs % (Man) 0 % 12/02/16 18:12 Monocytes % (Manual) 1.5 % (0.0-7.3) 12/02/16 18:12 Eosinophils % (Manual) 0 % (0.0-4.3) 12/02/16 18:12 Basophils % (Manual) 0 % (0.0-1.8) 12/02/16 18:12 Metamyelocytes % 0 % 12/02/16 18:12 Myelocytes % 0 % 12/02/16 18:12 Promyelocytes % 0 % 12/02/16 18:12 Blast Cells % 0 % 12/02/16 18:12 Nucleated RBC % Not Reportable 12/02/16 18:12 Seg Neutrophils # 7.9 K/mm3 (1.8-7.7) H 12/05/16 11:50 Seg Neutrophils # Man 26.6 K/mm3 (1.8-7.7) H 12/02/16 18:12 Band Neutrophils # 0.0 K/mm3 12/02/16 18:12 Lymphocytes # (Manual) 0.3 K/mm3 (1.2-5.4) L 12/02/16 18:12 Abs React Lymphs (Man) 0.0 K/mm3 12/02/16 18:12 Monocytes # (Manual) 0.4 K/mm3 (0.0-0.8) 12/02/16 18:12 Eosinophils # (Manual) 0.0 K/mm3 (0.0-0.4) 12/02/16 18:12 Basophils # (Manual) 0.0 K/mm3 (0.0-0.1) 12/02/16 18:12 Metamyelocytes # 0.0 K/mm3 12/02/16 18:12 Myelocytes # 0.0 K/mm3 12/02/16 18:12 Promyelocytes # 0.0 K/mm3 12/02/16 18:12 Blast Cells # 0.0 K/mm3 12/02/16 18:12 WBC Morphology Not Reportable 12/02/16 18:12 Hypersegmented Neuts Not Reportable 12/02/16 18:12 Hyposegmented Neuts Not Reportable 12/02/16 18:12 Hypogranular Neuts Not Reportable 12/02/16 18:12 Smudge Cells Not Reportable 12/02/16 18:12 Toxic Granulation Not Reportable 12/02/16 18:12 Toxic Vacuolation Not Reportable 12/02/16 18:12 Dohle Bodies Not Reportable 12/02/16 18:12 Pelger-Huet Anomaly Not Reportable 12/02/16 18:12 Alfonzo Rods Not Reportable 12/02/16 18:12 Platelet Estimate Appears normal 12/02/16 18:12 Clumped Platelets Not Reportable 12/02/16 18:12 Plt Clumps, EDTA Not Reportable 12/02/16 18:12 Large Platelets Not Reportable 12/02/16 18:12 Giant Platelets Not Reportable 12/02/16 18:12 Platelet Satelliting Not Reportable 12/02/16 18:12 Plt Morphology Comment Not Reportable 12/02/16 18:12 RBC Morphology Not Reportable 12/02/16 18:12 Dimorphic RBCs Not Reportable 12/02/16 18:12 Polychromasia Not Reportable 12/02/16 18:12 Hypochromasia Not Reportable 12/02/16 18:12 Poikilocytosis Not Reportable 12/02/16 18:12 Anisocytosis 1+ 12/02/16 18:12 Microcytosis Not Reportable 12/02/16 18:12 Macrocytosis Not Reportable 12/02/16 18:12 Spherocytes Not Reportable 12/02/16 18:12 Pappenheimer Bodies Not Reportable 12/02/16 18:12 Sickle Cells Not Reportable 12/02/16 18:12 Target Cells Not Reportable 12/02/16 18:12 Tear Drop Cells Not Reportable 12/02/16 18:12 Ovalocytes Not Reportable 12/02/16 18:12 Helmet Cells Not Reportable 12/02/16 18:12 [place] Bodies Not Reportable 12/02/16 18:12 [place] Rings Not Reportable 12/02/16 18:12 [place] Cells Not Reportable 12/02/16 18:12 Bite Cells Not Reportable 12/02/16 18:12 Crenated Cell Not Reportable 12/02/16 18:12 Elliptocytes Few 12/02/16 18:12 Acanthocytes (Spur) Not Reportable 12/02/16 18:12 Rouleaux Not Reportable 12/02/16 18:12 Hemoglobin C Crystals Not Reportable 12/02/16 18:12 Schistocytes Not Reportable 12/02/16 18:12 Malaria parasites Not Reportable 12/02/16 18:12 Maximiliano Bodies Not Reportable 12/02/16 18:12 Hem Pathologist Commnt No 12/02/16 18:12 PT 15.2 Sec. (12.2-14.9) H 12/02/16 18:12 INR 1.21 (0.87-1.13) H 12/02/16 18:12 VBG pH 7.462 (7.320-7.420) H 12/02/16 18:12 Sodium 130 mmol/L (137-145) L 12/05/16 11:50 Potassium 4.8 mmol/L (3.6-5.0) 12/05/16 11:50 Chloride 85.5 mmol/L (98-107) L 12/05/16 11:50 Carbon Dioxide 23 mmol/L (22-30) 12/05/16 11:50 Anion Gap 26 mmol/L 12/05/16 11:50 BUN 77 mg/dL (7-17) H 12/05/16 11:50 Creatinine 8.5 mg/dL (0.7-1.2) H D 12/05/16 11:50 Estimated GFR 6 ml/min 12/05/16 11:50 BUN/Creatinine Ratio 9.05 % 12/05/16 11:50 Glucose 204 mg/dL (65-100) H 12/05/16 11:50 POC Glucose 254 (70-105) H 12/06/16 16:58 Lactic Acid 1.00 mmol/L (0.7-2.0) 12/02/16 20:25 Calcium 9.9 mg/dL (8.4-10.2) 12/05/16 11:50 Total Bilirubin 0.50 mg/dL (0.1-1.2) 12/02/16 18:12 AST 36 units/L (5-40) 12/02/16 18:12 ALT 25 units/L (7-56) 12/02/16 18:12 Alkaline Phosphatase 110 units/L (35-129) 12/02/16 18:12 Total Protein 8.3 g/dL (6.3-8.2) H 12/02/16 18:12 Albumin 4.3 g/dL (3.9-5) 12/02/16 18:12 Albumin/Globulin Ratio 1.1 % 12/02/16 18:12 Plasma/Serum Alcohol < 0.01 gm% (0-0.07) 12/03/16 17:01
[2016-12-06] MEDS: ZOCOR PO SCH (21:38)
[2016-12-06] MEDS: NOVOLOG SUB-Q SCH (21:39)
[2016-12-07] MEDS: APRESOLINE PO SCH ×4 (00:24→22:05)
[2016-12-07] MEDS: NORMODYNE PO SCH ×3 (08:00→20:35)
[2016-12-07] MEDS: CATAPRES PO SCH ×3 (08:00→20:34)
[2016-12-07] MEDS: NOVOLOG SUB-Q SCH ×4 (08:00→22:12)
[2016-12-07 08:05] LABS: BUN/Creatinine Ratio 7.83; Calcium 10.3 mg/dL (8.4-10.2); Potassium 4.1 mmol/L (3.6-5.0)
--- NOTE | 2016-12-07 09:12 | Progress Note ---
Assessment and Plan Impression: * esrd * hypertension * AMS * anemia in esrd * dm Plan: * HD qTTHSAT * encephalopathy workup per primary team * dental workup per primary team * UF as tolerated * strict i/s * daily weights * rehab evaluation, may need rehab placement * stable from renal standpoint Subjective Date of service: 12/07/16 Principal diagnosis: esrd Interval history: resting in bed today Objective - Exam Narrative Exam: General appearance: Present: no acute distress. Absent: disheveled - EENT Eyes: Present: PERRL, EOM intact. Absent: scleral icterus, miosis ENT: hearing intact, no clear oral mucosa, no dentition normal, no oropharyngeal erythema, no edentulous - Neck Neck: Present: supple, normal ROM. Absent: enlarged thyroid, carotid bruits - Respiratory Respiratory effort: normal - Cardiovascular Rhythm: regular Heart Sounds: Present: S1 & S2. Absent: gallop, systolic murmur, diastolic murmur, click - Extremities Extremities: no ischemia Peripheral Pulses: within normal limits - Abdominal General gastrointestinal: Present: soft, non-tender, non-distended. Absent: tender, distended, rigid, hepatomegaly, splenomegaly Female genitourinary: Present: deferred - Rectal Rectal Exam: deferred - Integumentary Integumentary: Present: clear, warm, dry. Absent: erythema, jaundice - Musculoskeletal Musculoskeletal: strength equal bilaterally - Psychiatric Psychiatric: appropriate mood/affect - Neurologic Neurologic: CNII-XII intact - Vital Signs Vital signs: Vital Signs - 12hr 12/06/16 12/07/16 12/07/16 23:22 04:09 08:03 Temperature 98.1 F 98.1 F 99.8 F H Pulse Rate [ 89 92 H 88 Right Radial] Respiratory 18 18 20 Rate Blood Pressure 117/62 117/61 145/69 [Right Arm] O2 Sat by Pulse 97 98 97 Oximetry - Lab 12/05/16 11:50 12/07/16 07:30 Most recent lab results Calcium 10.3 mg/dL (8.4-10.2) H 12/07/16 07:30
[2016-12-07] MEDS: REMERON PO SCH (09:46)
[2016-12-07] MEDS: AUGMENTIN 500 MG PO SCH (09:46)
[2016-12-07] MEDS: PERCOCET 5/325 PO PRN (16:49)
--- NOTE | 2016-12-07 18:45 | Progress Note ---
Assessment and Plan Assessment and plan: --Dental ?Abscess/cellulitis jaw Significant improvement ,Continue Augmentin, anti-inflammatory pain medications outpatient dentist for further evaluation and management Inpatient dental services not available --End-stage renal disease on hemodialysis per schedule TThSat,Nephrology following --Leukocytosis; resolved --Metabolic encephalopathy; resolved --Malignant hypertension; well controlled, continue current antihypertensives and When necessary hydralazine --dyslipidemia; stable on lipid-lowering medications --Moderate protein calorie malnutrition; nutrition supplements and supportive care --Dvt prophylaxis with heparin --DC planning and case management, possible placement Plan of care discussed with the patient and her nurse verbalized understanding also discussed the case with case management for placement Patient is medically stable at discharge DC home with home health versus placement. History Interval history: Patient seen and evaluated in her room medical records reviewed No new events reported by the nursing staff Her right mandibular swelling significantly improved, patient is afebrile on antibiotics Alert awake oriented 3 not in acute distress Hospitalist Physical - Constitutional Vitals: Temp Pulse Resp BP Pulse Ox 99.1 F 91 H 20 173/81 97 12/07/16 15:44 12/07/16 16:37 12/07/16 15:44 12/07/16 16:37 12/07/16 08:03 General appearance: Present: no acute distress, cachectic, disheveled - EENT Eyes: Present: PERRL, EOM intact - Neck Neck: Present: supple, normal ROM - Respiratory Respiratory effort: normal Respiratory: bilateral: diminished, negative: rales, rhonchi, wheezing - Cardiovascular Rhythm: regular Heart Sounds: Present: S1 & S2 - Extremities Extremities: no ischemia, No edema Peripheral Pulses: within normal limits - Abdominal General gastrointestinal: soft, non-tender, non-distended, normal bowel sounds - Integumentary Integumentary: Present: clear, warm - Psychiatric Psychiatric: appropriate mood/affect, cooperative - Neurologic Neurologic: CNII-XII intact, moves all extremities Results - Labs CBC & Chem 7: 12/05/16 11:50 12/07/16 07:30 Labs: Laboratory Last Values WBC 9.2 K/mm3 (4.5-11.0) 12/05/16 11:50 RBC 3.80 M/mm3 (3.65-5.03) 12/05/16 11:50 Hgb 12.0 gm/dl (10.1-14.3) 12/05/16 11:50 Hct 36.5 % (30.3-42.9) 12/05/16 11:50 MCV 96 fl (79-97) 12/05/16 11:50 MCH 32 pg (28-32) 12/05/16 11:50 MCHC 33 % (30-34) 12/05/16 11:50 RDW 15.5 % (13.2-15.2) H 12/05/16 11:50 Plt Count 230 K/mm3 (140-440) 12/05/16 11:50 Lymph % (Auto) 2.3 % (13.4-35.0) L 12/05/16 11:50 [place] % (Auto) 11.5 % (0.0-7.3) H 12/05/16 11:50 Eos % (Auto) 0.9 % (0.0-4.3) 12/05/16 11:50 Baso % (Auto) 0.1 % (0.0-1.8) 12/05/16 11:50 Lymph # 0.2 K/mm3 (1.2-5.4) L 12/05/16 11:50 [place] # 1.1 K/mm3 (0.0-0.8) H 12/05/16 11:50 Eos # 0.1 K/mm3 (0.0-0.4) 12/05/16 11:50 Baso # 0.0 K/mm3 (0.0-0.1) 12/05/16 11:50 Add Manual Diff Complete 12/02/16 18:12 Total Counted 200 12/02/16 18:12 Seg Neutrophils % 85.2 % (40.0-70.0) H 12/05/16 11:50 Seg Neuts % (Manual) 97.5 % (40.0-70.0) H 12/02/16 18:12 Band Neutrophils % 0 % 12/02/16 18:12 Lymphocytes % (Manual) 1.0 % (13.4-35.0) L 12/02/16 18:12 Reactive Lymphs % (Man) 0 % 12/02/16 18:12 Monocytes % (Manual) 1.5 % (0.0-7.3) 12/02/16 18:12 Eosinophils % (Manual) 0 % (0.0-4.3) 12/02/16 18:12 Basophils % (Manual) 0 % (0.0-1.8) 12/02/16 18:12 Metamyelocytes % 0 % 12/02/16 18:12 Myelocytes % 0 % 12/02/16 18:12 Promyelocytes % 0 % 12/02/16 18:12 Blast Cells % 0 % 12/02/16 18:12 Nucleated RBC % Not Reportable 12/02/16 18:12 Seg Neutrophils # 7.9 K/mm3 (1.8-7.7) H 12/05/16 11:50 Seg Neutrophils # Man 26.6 K/mm3 (1.8-7.7) H 12/02/16 18:12 Band Neutrophils # 0.0 K/mm3 12/02/16 18:12 Lymphocytes # (Manual) 0.3 K/mm3 (1.2-5.4) L 12/02/16 18:12 Abs React Lymphs (Man) 0.0 K/mm3 12/02/16 18:12 Monocytes # (Manual) 0.4 K/mm3 (0.0-0.8) 12/02/16 18:12 Eosinophils # (Manual) 0.0 K/mm3 (0.0-0.4) 12/02/16 18:12 Basophils # (Manual) 0.0 K/mm3 (0.0-0.1) 12/02/16 18:12 Metamyelocytes # 0.0 K/mm3 12/02/16 18:12 Myelocytes # 0.0 K/mm3 12/02/16 18:12 Promyelocytes # 0.0 K/mm3 12/02/16 18:12 Blast Cells # 0.0 K/mm3 12/02/16 18:12 WBC Morphology Not Reportable 12/02/16 18:12 Hypersegmented Neuts Not Reportable 12/02/16 18:12 Hyposegmented Neuts Not Reportable 12/02/16 18:12 Hypogranular Neuts Not Reportable 12/02/16 18:12 Smudge Cells Not Reportable 12/02/16 18:12 Toxic Granulation Not Reportable 12/02/16 18:12 Toxic Vacuolation Not Reportable 12/02/16 18:12 Dohle Bodies Not Reportable 12/02/16 18:12 Pelger-Huet Anomaly Not Reportable 12/02/16 18:12 Alfonzo Rods Not Reportable 12/02/16 18:12 Platelet Estimate Appears normal 12/02/16 18:12 Clumped Platelets Not Reportable 12/02/16 18:12 Plt Clumps, EDTA Not Reportable 12/02/16 18:12 Large Platelets Not Reportable 12/02/16 18:12 Giant Platelets Not Reportable 12/02/16 18:12 Platelet Satelliting Not Reportable 12/02/16 18:12 Plt Morphology Comment Not Reportable 12/02/16 18:12 RBC Morphology Not Reportable 12/02/16 18:12 Dimorphic RBCs Not Reportable 12/02/16 18:12 Polychromasia Not Reportable 12/02/16 18:12 Hypochromasia Not Reportable 12/02/16 18:12 Poikilocytosis Not Reportable 12/02/16 18:12 Anisocytosis 1+ 12/02/16 18:12 Microcytosis Not Reportable 12/02/16 18:12 Macrocytosis Not Reportable 12/02/16 18:12 Spherocytes Not Reportable 12/02/16 18:12 Pappenheimer Bodies Not Reportable 12/02/16 18:12 Sickle Cells Not Reportable 12/02/16 18:12 Target Cells Not Reportable 12/02/16 18:12 Tear Drop Cells Not Reportable 12/02/16 18:12 Ovalocytes Not Reportable 12/02/16 18:12 Helmet Cells Not Reportable 12/02/16 18:12 [place] Bodies Not Reportable 12/02/16 18:12 [place] Rings Not Reportable 12/02/16 18:12 Viral Cells Not Reportable 12/02/16 18:12 Bite Cells Not Reportable 12/02/16 18:12 Crenated Cell Not Reportable 12/02/16 18:12 Elliptocytes Few 12/02/16 18:12 Acanthocytes (Spur) Not Reportable 12/02/16 18:12 Rouleaux Not Reportable 12/02/16 18:12 Hemoglobin C Crystals Not Reportable 12/02/16 18:12 Schistocytes Not Reportable 12/02/16 18:12 Malaria parasites Not Reportable 12/02/16 18:12 Maximiliano Bodies Not Reportable 12/02/16 18:12 Hem Pathologist Commnt No 12/02/16 18:12 PT 15.2 Sec. (12.2-14.9) H 12/02/16 18:12 INR 1.21 (0.87-1.13) H 12/02/16 18:12 VBG pH 7.462 (7.320-7.420) H 12/02/16 18:12 Sodium 135 mmol/L (137-145) L 12/07/16 07:30 Potassium 4.1 mmol/L (3.6-5.0) 12/07/16 07:30 Chloride 89.0 mmol/L (98-107) L 12/07/16 07:30 Carbon Dioxide 24 mmol/L (22-30) 12/07/16 07:30 Anion Gap 26 mmol/L 12/07/16 07:30 BUN 58 mg/dL (7-17) H 12/07/16 07:30 Creatinine 7.4 mg/dL (0.7-1.2) H 12/07/16 07:30 Estimated GFR 7 ml/min 12/07/16 07:30 BUN/Creatinine Ratio 7.83 % 12/07/16 07:30 Glucose 219 mg/dL (65-100) H 12/07/16 07:30 POC Glucose 337 (70-105) H 12/06/16 21:14 Lactic Acid 1.00 mmol/L (0.7-2.0) 12/02/16 20:25 Calcium 10.3 mg/dL (8.4-10.2) H 12/07/16 07:30 Total Bilirubin 0.50 mg/dL (0.1-1.2) 12/02/16 18:12 AST 36 units/L (5-40) 12/02/16 18:12 ALT 25 units/L (7-56) 12/02/16 18:12 Alkaline Phosphatase 110 units/L (35-129) 12/02/16 18:12 Total Protein 8.3 g/dL (6.3-8.2) H 12/02/16 18:12 Albumin 4.3 g/dL (3.9-5) 12/02/16 18:12 Albumin/Globulin Ratio 1.1 % 12/02/16 18:12 Plasma/Serum Alcohol < 0.01 gm% (0-0.07) 12/03/16 17:01
[2016-12-07] MEDS: ZOCOR PO SCH (22:12)
[2016-12-08] MEDS: APRESOLINE PO SCH (05:05)
[2016-12-08] MEDS: PERCOCET 5/325 PO PRN (05:05)
--- NOTE | 2016-12-08 08:56 | Progress Note ---
Assessment and Plan Impression: * esrd * hypertension * AMS * anemia in esrd * dm Plan: * HD qTTHSAT * encephalopathy workup per primary team * dental workup per primary team * UF as tolerated * strict i/s * daily weights * rehab evaluation, may need rehab placement * stable from renal standpoint Subjective Date of service: 12/08/16 Principal diagnosis: esrd Interval history: resting in bed today Objective - Exam Narrative Exam: General appearance: Present: no acute distress. Absent: disheveled - EENT Eyes: Present: PERRL, EOM intact. Absent: scleral icterus, miosis ENT: hearing intact, no clear oral mucosa, no dentition normal, no oropharyngeal erythema, no edentulous - Neck Neck: Present: supple, normal ROM. Absent: enlarged thyroid, carotid bruits - Respiratory Respiratory effort: normal - Cardiovascular Rhythm: regular Heart Sounds: Present: S1 & S2. Absent: gallop, systolic murmur, diastolic murmur, click - Extremities Extremities: no ischemia Peripheral Pulses: within normal limits - Abdominal General gastrointestinal: Present: soft, non-tender, non-distended. Absent: tender, distended, rigid, hepatomegaly, splenomegaly Female genitourinary: Present: deferred - Rectal Rectal Exam: deferred - Integumentary Integumentary: Present: clear, warm, dry. Absent: erythema, jaundice - Musculoskeletal Musculoskeletal: strength equal bilaterally - Psychiatric Psychiatric: appropriate mood/affect - Neurologic Neurologic: CNII-XII intact - Vital Signs Vital signs: Vital Signs - 12hr 12/08/16 12/08/16 12/08/16 00:57 05:01 07:30 Temperature 99.6 F 99.4 F 99.1 F Pulse Rate [ 0 L 0 L 84 Radial] Pulse Rate [ 88 86 84 Right Radial] Respiratory 20 18 20 Rate Blood Pressure 124/59 152/72 126/60 [Right Arm] O2 Sat by Pulse 97 98 98 Oximetry - Lab 12/05/16 11:50 12/07/16 07:30 Most recent lab results Calcium 10.3 mg/dL (8.4-10.2) H 12/07/16 07:30
--- NOTE | 2016-12-08 09:11 | Discharge Summary ---
Providers - Providers Date of Admission: 12/02/16 22:31 Date of discharge: 12/08/16 Attending physician: LAUREEN ABEBE 12/03/16 06:40 Consult to Physician [CONS] Routine Consulting Provider: JULITO ROSARIO Reason For Exam: ESRD ON DIALYSIS Place consult to:: JULITO ROSARIO Notified:: OFFICE Was contact made?: Yes 12/03/16 11:44 Physical Therapy Evaluation and Treat [CONS] Routine Comment: Reason For Exam: unsteady gait Primary care physician: DELIVERY MERCHANDISER Hospitalization Condition: Stable Disposition: DC/TX-06 HOME UNDER HOME [facility] Core Measure Documentation - Palliative Care Palliative Care/ Comfort Measures: Not Applicable - Core Measures Any of the following diagnoses?: none Exam - Constitutional Vitals: Temp Pulse Resp BP Pulse Ox 99.1 F 84 20 126/60 98 12/08/16 07:30 12/08/16 07:30 12/08/16 07:30 12/08/16 07:30 12/08/16 07:30 General appearance: Present: no acute distress, well-nourished Plan Diet: diabetic, renal Additional Instructions: Renal and HD per schedule. See Dentist for your gum infection 2-3 days Follow up with: IWONA BOWER MD [Primary Care Provider] - 3-5 Days ARETHA DONALDSON MD [Staff Physician] - 7 Days Prescriptions: Amoxicillin/K Clav Tab [Augmentin 500 MG TAB] 1 each PO Q24HR #7 tablet oxyCODONE /ACETAMINOPHEN [Percocet 5/325 mg] 1 tab PO Q12H PRN #10 tablet PRN Reason: Pain, Moderate (4-6)
[2016-12-08] MEDS: REMERON PO SCH (12:19)
[2016-12-08] MEDS: AUGMENTIN 500 MG PO SCH (12:19)
[2016-12-08] MEDS: NORMODYNE PO SCH (12:29)
[2016-12-08] MEDS: CATAPRES PO SCH (12:30)
[2016-12-08] MEDS: NOVOLOG SUB-Q SCH (13:34)
[2016-12-08] MEDS: ROBITUSSIN DM PO PRN (13:40)
[2016-12-08 21:10] VITALS: BP 148/71
== END 2016-12-08 20:00 | disposition home health service (06) | DRG 871 ==
LOC: ED 17:28 → 4A 22:31
PROVIDERS: ADMIT Internal Medicine; ATTEND Internal Medicine
PROC: 5A1D60Z (ICD-10-PCS; principal; 2016-12-03)
DX: A41.9 Sepsis, unspecified organism (principal); G93.41 Metabolic encephalopathy; N18.6 End stage renal disease; E44.0 Moderate protein-calorie malnutrition; I12.0 Hypertensive chronic kidney disease with stage 5 chronic kidney disease or end stage renal disease; E11.9 Type 2 diabetes mellitus without complications; K21.9 Gastro-esophageal reflux disease without esophagitis; E78.5 Hyperlipidemia, unspecified; D63.1 Anemia in chronic kidney disease; K04.7 Periapical abscess without sinus; Z68.20 Body mass index [BMI] 20.0-20.9, adult; Z88.8 Allergy status to other drugs, medicaments and biological substances; Z99.2 Dependence on renal dialysis; Z82.49 Family history of ischemic heart disease and other diseases of the circulatory system
CPT/HCPCS: 36415; 70450; 71010; 80048; 80053; 80320; 82140; 82805; 82962; 85007; 85025; 85027; 85610; 87040; 93005; 93010; 96365; 96366; 96375; 99285; G0480; G8978-GP; G8979-GP; J0360; J1815; J2543; J7030; J7040

== ENCOUNTER 2016-12-20 21:35 | Inpatient (IN) | payer MEDICARE ==
[2016-12-20 22:52] LABS: Basophils % (Auto) 0.4 % (0.0-1.8); Eosinophils % (Auto) 3.4 % (0.0-4.3); Hematocrit 27.1 % (30.3-42.9); Hemoglobin 8.8 gm/dl (10.1-14.3); Mean Corpuscular HGB Conc 32 % (30-34); Mean Corpuscular Hemoglobin 31 pg (28-32); Mean Corpuscular Volume 96 fl (79-97); Platelet Count 353 K/mm3 (140-440); Red Blood Count 2.82 M/mm3 (3.65-5.03); Red Cell Distribution Width 15.8 % (13.2-15.2); White Blood Count 6.6 K/mm3 (4.5-11.0)
[2016-12-20 23:08] LABS: BUN/Creatinine Ratio 12.96; Calcium 9.8 mg/dL (8.4-10.2); Chloride 95.8 mmol/L (98-107); Potassium 5.1 mmol/L (3.6-5.0)
[2016-12-21] MEDS ORDERED: NORCO 5/325 PO ONE (06:36)
[2016-12-21] MEDS ORDERED: ASPIRIN PO ONE (06:42)
--- NOTE | 2016-12-21 07:08 | Emergency Department Report ---
ED Chest Pain HPI - General Chief Complaint: Chest Pain Stated Complaint: CHEST PAIN Time Seen by Provider: 12/21/16 06:18 Source: patient, EMS Mode of arrival: Stretcher Limitations: Physical Limitation - History of Present Illness Initial Comments: 66-year-old female with a past medical history of end-stage renal disease on dialysis, hypertension, dementia, diabetes, and GERD presents to the hospital complaining of left-sided chest pain since yesterday. Pain is in the epigastric area and left breast bone. Described as dull, constant, and feels like "gas". Patient denies nausea, vomiting, or diaphoresis. Mild shortness of breath noted. Patient is due for dialysis today. Previous medical record reviewed. Patient had a negative treadmill stress test 12/03/2015 and an echo during that admission as well. EF 65% patient seen by [facility] health care law specialist Severity scale (0 -10): 8 - Related Data Home Medications Medication Instructions Recorded Confirmed Last Taken Furosemide 80 mg PO BID 06/18/14 12/21/16 1 Day Ago Clonidine HCl [Catapres] 0.3 mg PO TID 09/03/15 12/21/16 11/13/16 Insulin NPH, Human [NovoLIN N] 6 units PO BID 12/02/16 12/21/16 Unknown Labetalol HCl [Trandate TAB] 300 mg PO TID 12/02/16 12/21/16 Unknown Omeprazole 40 mg PO QDAY 12/02/16 12/21/16 Unknown Ondansetron [Zofran TAB] 4 mg PO QID PRN 12/02/16 12/21/16 Unknown Pravastatin Sodium [Pravastatin] 20 mg PO QDAY 12/02/16 12/21/16 Unknown Sodium Polystyrene Sulfonate 15 kg PO 2XW 12/02/16 12/21/16 Unknown [Kalexate] Vit B Cplx #11/FA/C/Biot/Zn Ox 1 tab PO QDAY 12/02/16 12/21/16 Unknown [Dialyvite with Zinc Tablet] Lisinopril [Zestril] 20 mg PO BID 12/21/16 12/21/16 Unknown Allergies Allergy/AdvReac Type Severity Reaction Status Date / Time erythromycin base Allergy Rash Verified 06/17/15 21:56 [Erythromycin Base] lisinopril Allergy Swelling Verified 01/26/16 21:56 Heart Score - HEART Score History: Slightly suspicious EKG: Normal Age: > 65 Risk factors: > 3 risk factors or hx of atherosclerotic disease Troponin: 1-3x normal limit HEART Score: 5 ED Review of Systems ROS: Stated complaint: CHEST PAIN Other details as noted in HPI Comment: All other systems reviewed and negative Other: Constitutional: No fevers chills Eyes: No eye pain visual changes ENT: No ear pain or throat pain Neck: Denies pain Respiratory: Denies cough wheezing Cardiovascular: Denies palpitations, syncope GI: Denies abdominal pain, nausea, vomiting, diarrhea Musculoskeletal: Denies back pain Skin: Denies rash, lesions, erythema Neurologic: Denies headache, numbness, weakness Psychiatric: Denies suicidal ideation, hallucinations ED Past Medical Hx - Past Medical History Previous Medical History?: Yes Hx Hypertension: Yes Hx Heart Attack/AMI: No Hx Congestive Heart Failure: No Hx Diabetes: Yes Hx Deep Vein Thrombosis: No Hx GERD: Yes Hx Liver Disease: No Hx Renal Disease: Yes (HD T,TH,Sat) Hx Sickle Cell Disease: No Hx Seizures: No Hx Kidney Stones: No Hx HIV: No - Surgical History Past Surgical History?: Yes Hx Coronary Stent: No Hx Open Heart Surgery: No Hx Pacemaker: No Hx Internal Defibrillator: No Hx Cholecystectomy: No Hx Appendectomy: No Hx Breast Surgery: No Additional Surgical History: graft left arm - Social History Smoking Status: Never Smoker Substance Use Type: None - Medications Home Medications: Home Medications Medication Instructions Recorded Confirmed Last Taken Type Furosemide 80 mg PO BID 06/18/14 12/21/16 1 Day Ago History Clonidine HCl [Catapres] 0.3 mg PO TID 09/03/15 12/21/16 11/13/16 History Insulin NPH, Human [NovoLIN N] 6 units PO BID 12/02/16 12/21/16 Unknown History Labetalol HCl [Trandate TAB] 300 mg PO TID 12/02/16 12/21/16 Unknown History Omeprazole 40 mg PO QDAY 12/02/16 12/21/16 Unknown History Ondansetron [Zofran TAB] 4 mg PO QID PRN 12/02/16 12/21/16 Unknown History Pravastatin Sodium [Pravastatin] 20 mg PO QDAY 12/02/16 12/21/16 Unknown History Sodium Polystyrene Sulfonate 15 kg PO 2XW 12/02/16 12/21/16 Unknown History [Kalexate] Vit B Cplx #11/FA/C/Biot/Zn Ox 1 tab PO QDAY 12/02/16 12/21/16 Unknown History [Dialyvite with Zinc Tablet] Lisinopril [Zestril] 20 mg PO BID 12/21/16 12/21/16 Unknown History ED Physical Exam - General Limitations: Physical Limitation - Other Other exam information: General: No limitations, patient is alert in no acute distress Head exam: Atraumatic, normocephalic Eyes exam: Normal appearance, pupils equal reactive to light, extraocular movements intact ENT: Moist mucous membrane, normal oropharynx Neck exam: Normal inspection, full range of motion, no meningismus nontender Respiratory exam: Clear to auscultation bilateral, no wheezes, rales, crackles Cardiovascular: Normal rate and rhythm, positive systolic murmur. Reproducible left lower chest wall tenderness Abdomen: Soft, nondistended, and nontender, with normal bowel sounds, no rebound, or guarding Extremity: Full range of motion normal inspection no deformity. Left arm AV graft positive thrill, no calf tenderness or edema Back: Normal Inspection, full range of motion, no tenderness Neurologic: Alert, oriented x3, cranial nerves intact, no motor or sensory deficit Psychiatric: normal affect, normal mood Skin: Warm, dry, intact ED Course Vital Signs 12/20/16 12/20/16 12/21/16 22:02 22:20 03:50 Temperature 98.7 F 98.7 F Pulse Rate 84 84 91 H Respiratory 18 18 19 Rate Blood Pressure 113/70 152/77 Blood Pressure 113/70 [Left] O2 Sat by Pulse 100 100 99 Oximetry 12/21/16 12/21/16 12/21/16 04:10 04:30 05:00 Temperature 98.3 F Pulse Rate 90 86 88 Respiratory 19 11 L 11 L Rate Blood Pressure 152/77 152/77 Blood Pressure 152/77 [Left] O2 Sat by Pulse 100 100 100 Oximetry 12/21/16 12/21/16 12/21/16 06:00 06:15 06:30 Temperature Pulse Rate 86 85 92 H Respiratory 11 L 12 14 Rate Blood Pressure 139/65 139/66 133/64 Blood Pressure [Left] O2 Sat by Pulse 99 100 99 Oximetry 12/21/16 12/21/16 12/21/16 06:45 07:00 07:15 Temperature Pulse Rate 83 81 83 Respiratory 12 12 13 Rate Blood Pressure 151/66 139/61 151/72 Blood Pressure [Left] O2 Sat by Pulse 100 98 99 Oximetry 12/21/16 12/21/16 07:30 07:46 Temperature Pulse Rate 80 92 H Respiratory 15 14 Rate Blood Pressure 133/64 144/61 Blood Pressure [Left] O2 Sat by Pulse 98 95 Oximetry - Reevaluation(s) Reevaluation #1: 12/21/16 07:14 Aspirin and [place] provided - Consultations Consultation #1: 12/21/16 07:09e will evaluate Case was 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 will manage dialysis MANDY score - Mandy Score Age > 65: (0) No Aspirin use within the Past 7 Days: (0) No 3 or more CAD Risk Factors: (1) Yes 2 or more Angina events in past 24 hrs: (1) Yes Known CAD with more than 50% Stenosis: (0) No Elevated Cardiac Markers: (1) Yes ST Deviation Greater than 0.5mm: (0) No MANDY Score: 3 ED Medical Decision Making - Lab Data Result diagrams: 12/20/16 22:29 12/20/16 22:29 Lab Results 12/20/16 12/20/16 12/20/16 Range/Units 22:29 22:29 23:42 WBC 6.6 (4.5-11.0) K/mm3 RBC 2.82 L (3.65-5.03) M/mm3 Hgb 8.8 L (10.1-14.3) gm/dl Hct 27.1 L (30.3-42.9) % MCV 96 (79-97) fl MCH 31 (28-32) pg MCHC 32 (30-34) % RDW 15.8 H (13.2-15.2) % Plt Count 353 (140-440) K/mm3 Lymph % (Auto) 12.6 L (13.4-35.0) % [place] % (Auto) 8.3 H (0.0-7.3) % Eos % (Auto) 3.4 (0.0-4.3) % Baso % (Auto) 0.4 (0.0-1.8) % Lymph # 0.8 L (1.2-5.4) K/mm3 [place] # 0.5 (0.0-0.8) K/mm3 Eos # 0.2 (0.0-0.4) K/mm3 Baso # 0.0 (0.0-0.1) K/mm3 Seg Neutrophils % 75.3 H (40.0-70.0) % Seg Neutrophils # 5.0 (1.8-7.7) K/mm3 Sodium 140 (137-145) mmol/L Potassium 5.1 H (3.6-5.0) mmol/L Chloride 95.8 L (98-107) mmol/L Carbon Dioxide 21 L (22-30) mmol/L Anion Gap 28 mmol/L BUN 83 H (7-17) mg/dL Creatinine 6.4 H (0.7-1.2) mg/dL Estimated GFR 8 ml/min BUN/Creatinine Ratio 12.96 % Glucose 121 H (65-100) mg/dL POC Glucose (70-105) Calcium 9.8 (8.4-10.2) mg/dL Troponin T 0.289 H* 0.291 H* (0.00-0.029) ng/mL Triglycerides 87 (2-149) mg/dL Cholesterol 116 (50-199) mg/dL LDL Cholesterol Direct 38 L (50-130) mg/dL HDL Cholesterol 61 H (40-59) mg/dL Cholesterol/HDL Ratio 1.90 % 12/20/16 12/21/16 12/21/16 Range/Units 23:58 02:26 05:50 WBC (4.5-11.0) K/mm3 RBC (3.65-5.03) M/mm3 Hgb (10.1-14.3) gm/dl Hct (30.3-42.9) % MCV (79-97) fl MCH (28-32) pg MCHC (30-34) % RDW (13.2-15.2) % Plt Count (140-440) K/mm3 Lymph % (Auto) (13.4-35.0) % [place] % (Auto) (0.0-7.3) % Eos % (Auto) (0.0-4.3) % Baso % (Auto) (0.0-1.8) % Lymph # (1.2-5.4) K/mm3 [place] # (0.0-0.8) K/mm3 Eos # (0.0-0.4) K/mm3 Baso # (0.0-0.1) K/mm3 Seg Neutrophils % (40.0-70.0) % Seg Neutrophils # (1.8-7.7) K/mm3 Sodium (137-145) mmol/L Potassium (3.6-5.0) mmol/L Chloride (98-107) mmol/L Carbon Dioxide (22-30) mmol/L Anion Gap mmol/L BUN (7-17) mg/dL Creatinine (0.7-1.2) mg/dL Estimated GFR ml/min BUN/Creatinine Ratio % Glucose (65-100) mg/dL POC Glucose 160 H (70-105) Calcium (8.4-10.2) mg/dL Troponin T 0.280 H* 0.291 H* (0.00-0.029) ng/mL Triglycerides (2-149) mg/dL Cholesterol (50-199) mg/dL LDL Cholesterol Direct (50-130) mg/dL HDL Cholesterol (40-59) mg/dL Cholesterol/HDL Ratio % - EKG Data -: EKG Interpreted by Me (normal sinus rate [address] elevation or T-wave inversion) - EKG Data When compared to previous EKG there are: no significant change (compared to ) - Medical Decision Making Overall think that patient's chest pain is atypical and marking musculoskeletal have a, patient is not a consistent historian and has several cardiac risk factors she will be admitted to the hospital for further testing and observation - Differential Diagnosis [place], PE, costochondritis, atypical chest pain, GERD Critical Care Time: No Critical care attestation.: If time is entered above; I have spent that time in minutes in the direct care of this critically ill patient, excluding procedure time. ED Disposition Clinical Impression: Chest pain, ESRD on hemodialysis, Elevated troponin, Anemia Disposition: OP ADMIT IP TO THIS HOSP Is pt being admited?: Yes Does the pt Need Aspirin: Yes Condition: Stable Time of Disposition: 07:09 (Dr saldana/hosp)
--- NOTE | 2016-12-21 07:08 | XRay Report ---
AP CHEST: HISTORY: chest pain Borderline to mild cardiomegaly is unchanged since 12/02/16. Normal pulmonary vascularity. The lungs are generally clear. Linear scarring in the left lower lobe is unchanged. No evidence for pleural effusion or pneumothorax. The bony structures are grossly intact. IMPRESSION: Borderline to mild cardiomegaly, stable. No acute cardiopulmonary process.
--- NOTE | 2016-12-21 07:26 | Admit Criteria Form ---
Admission Criteria Documentation: CHEST PAIN Clinical Indications for Admission to Inpatient Care (Place 'X' for any and all applicable criteria): Admission is indicated for chest pain and ANY ONE of the following(1)(2)(3)(4)(5 ): [ ]I. Angina with acute coronary syndrome (Also use Myocardial Infarction or Angina guideline) [ ]II. Hemodynamic instability [ ]III. Angina needing acute intervention as indicated by ALL of the following( 11)(12): [ ]a) Unstable angina is present as indicated by angina that is ANY ONE of the following: [ ]i) New onset [ ]ii) Nocturnal [ ]iii) Prolonged at rest [ ]iv) Progressive [ ]b) Angina warrants acute intervention as indicated by ANY ONE of the following: [ ]i) Recurrent angina (e.g, not responding as previously to treatment) [ ]ii) Angina at rest or with low-level activities despite initial medical therapy [ ]iii) New or presumably new ST-segment depression on ECG [ ]iv) Signs or symptoms of heart failure (eg, dyspnea, pulmonary edema) [ ]v) New or worsening mitral regurgitation [ ]vi) Hemodynamic instability [ ]vii) Dangerous arrhythmia (eg, sustained ventricular tachycardia) [ ]viii) History of percutaneous coronary intervention within 6 months [ ]ix) History of coronary artery bypass graft surgery [ ]x) MANDY risk score of 2 or greater[A] [ ]xi) History of Diabetes(14) [ ]xii) High-risk cardiac ischemia findings on noninvasive testing (e.g, echocardiogram, treadmill testing, nuclear scan) [ ]xiii) Chronic renal insufficiency (ie, estimated GFR less than 60 mL/min/1.732m) [ ]xiv) Left ventricular ejection fraction less than 40% [ ]IV. Evidence of OH (eg, cardiac biomarkers positive, ST-segment elevation on ECG) also use Myocardial Infarction Criteria Form. [ ]V. Pulmonary edema [ ]. Respiratory distress [ ]VII. Chest pain indicative of serious diagnosis other than coronary artery disease (eg, aortic dissection) [ ]VIII. Contraindications and/or Inappropriate clinical situations for Observational Care in patients with Chest Pain, when ANY ONE of the following is required: [ ]a) Patient with risk factor for pulmonary embolism, acute coronary syndrome and myocardial infarction (18) [ ]b) Patient with Pulmonary embolism require an average LOS of 4.3 days, therefore emergency department observation management is inappropriate 18,23 [ ]c) Painful condition/s in the elderly, have the highest rate of recidivism after emergency department observation management (10.8%) 20,21,22 [ ]d) Elevated cardiac biomarker requires intensive and exhaustive care (19) [X ]IX. General contraindications and/or Inappropriate clinical situations for Observational Care in patients with Chest Pain, when ANY ONE of the following is required: [X ]a) Prediction of prolongation of LOS based on ANY ONE of the following may be considered as a contraindication for observational care 2, 3, 4, 5, 6, 7, 8, 9, 10, 11 [ X]i) Age > 65 yrs. [X ]ii) Patient arriving by ambulance [ ]iii) Patient with high acuity [ ]iv) Patient requiring vital sign monitoring [ ]v) Patient on IV medication [ ]b) Systolic blood pressures 180mmHg 3,12 [ ]c) Patient with altered mental status including delirium and other alteration of consciousness, (3) [ ]d) Patient whose discharge disposition will be to a senior care home or rehabilitation home should not be managed in Emergency Department Observation Unit. CMS rule requires 3 days hospital stay before such placement. 3,13 [ ]e) Patient with failure to thrive due to broad array of etiologies 3,16,17 [ ]f) Inability to ambulate 3,14 Extended stay beyond goal length of stay may be needed for (1)(28): [ ]a) Specific condition diagnosed after evaluation (eg, pulmonary embolism, aortic dissection) [ ]b) Unstable angina [ ]c) Continued suspicion of acute coronary syndrome with inability to complete needed cardiac evaluation (eg, patient clinically unable to undergo stress testing) [ ]d) Myocardial infarction (Contents from ANGINA and CHEST PAIN clinical indications for admission to inpatient care have been integrated in this form) The original [employer] content created by [employer] has been revised. The portions of the content which have been revised are identified through the use of italic text or in bold, and [facility] [employer] [facility] has neither reviewed nor approved the modified material. All other unmodified content is copyright [employer]. Please see references footnoted in the original [employer] [facility] [employer] edition 2016 Admission Criteria Met: Yes
[2016-12-21] MEDS ORDERED: MORPHINE IV PRN (08:05)
--- NOTE | 2016-12-21 08:12 | History and Physical Report ---
<LORRIE HERNANDEZ - Last Filed: 12/21/16 11:09> History of Present Illness Date of examination: 12/21/16 Date of admission: 12/21/2016 Chief complaint: Chest pain History of present illness: Patient is a 66 years -[place] female with past medical history of hypertension, diabetes mellitus, ESRD on hemodialysis , who presented to the ED complaining of left chest pain. She states that the pain began last night and consisted of a dull pain. The pain was located over her left chest area somewhat in the epigastric area and left breast bone. Patient described as dull, constant, and gas pain. The onset of pain came while the patient was at home laying down on the sofa. She states that pain was non-radiating and lasted for several hours. There is no relieving or aggravating factors . She continued to have several episodes of the pain throughout the night, so she decided to call 911 and they brought her to the emergency department. The painful episodes did not increase in intensity or severity during this time. Patient was given nitroglycerin, ASA in the emergency department without improvement of the pain. The patient currently rated his pain a score of 8/10. She denies shortness of breath, diaphoresis, nausea and vomiting during these episodes of pain. Patient had a negative treadmill stress test 12/03/2015 and echocardiogram with EF 65% patient seen by [facility] analytics specialist. Past History Past Medical History: diabetes, ESRD (on hemodialysis), GERD, hypertension Past Surgical History: No surgical history Social history: Lives alone. denies: smoking, alcohol abuse Family history: CAD, hypertension Medications and Allergies Allergies Allergy/AdvReac Type Severity Reaction Status Date / Time erythromycin base Allergy Rash Verified 06/17/15 21:56 [Erythromycin Base] lisinopril Allergy Swelling Verified 06/17/15 21:56 Home Medications Medication Instructions Recorded Confirmed Last Taken Type Furosemide 80 mg PO BID 06/18/14 12/21/16 1 Day Ago History Clonidine HCl [Catapres] 0.3 mg PO TID 09/03/15 12/21/16 11/13/16 History Insulin NPH, Human [NovoLIN N] 6 units PO BID 12/02/16 12/21/16 Unknown History Labetalol HCl [Trandate TAB] 300 mg PO TID 12/02/16 12/21/16 Unknown History Omeprazole 40 mg PO QDAY 12/02/16 12/21/16 Unknown History Ondansetron [Zofran TAB] 4 mg PO QID PRN 12/02/16 12/21/16 Unknown History Pravastatin Sodium [Pravastatin] 20 mg PO QDAY 12/02/16 12/21/16 Unknown History Sodium Polystyrene Sulfonate 15 kg PO 2XW 12/02/16 12/21/16 Unknown History [Kalexate] Vit B Cplx #11/FA/C/Biot/Zn Ox 1 tab PO QDAY 12/02/16 12/21/16 Unknown History [Dialyvite with Zinc Tablet] Lisinopril [Zestril] 20 mg PO BID 12/21/16 12/21/16 Unknown History Active Meds: Active Medications Acetaminophen (Tylenol) 650 mg PO Q4H PRN PRN Reason: Pain MILD(1-3)/Fever >100.5/PEREZ Aspirin (Aspirin) 325 mg PO DAILY [facility] Bisacodyl (Dulcolax) 10 mg [place] QDAY PRN PRN Reason: Constipation unrelieved by MOM Heparin Sodium (Porcine) (Heparin) 5,000 unit SUB-Q Q12H [facility] Morphine Sulfate (Morphine) 2 mg IV Q4H PRN PRN Reason: Pain, Moderate (4-6) Review of Systems Constitutional: no weight loss, no weight gain, no fever, no chills Ears, nose, mouth and throat: no ear pain, no ear discharge, no tinnitis, no decreased hearing Breasts: no normal, no change in shape Cardiovascular: chest pain, no orthopnea, no palpitations, no rapid/irregular heart beat, no edema, no lightheadedness, no shortness of breath Respiratory: no cough with sputum, no excessive sputum, no hemoptysis, no shortness of breath Gastrointestinal: no vomiting, no diarrhea Genitourinary Female: no dysmenorrhea, no pelvic pain, no flank pain, no menorrhagia, no dysuria Menstruation: no premenarcheal, no post hysterectomy, no ammenorrhea, no ammenorrhea on BC Rectal: no incontinence, no bleeding Musculoskeletal: no neck stiffness, no neck pain, no shooting arm pain, no arm numbness/tingling Integumentary: no pruritis, no redness, no sores, no wounds Neurological: no transient paralysis, no paralysis, no weakness, no parathesias Psychiatric: no change in sleep habits, no sleep disturbances, no insomnia, no hypersomnia Endocrine: no cold intolerance, no heat intolerance, no polyphagia, no excessive thirst Hematologic/Lymphatic: no easy bruising, no easy bleeding Allergic/Immunologic: no urticaria, no allergic rhinitis Exam - Constitutional Vitals: Temp Pulse Resp BP Pulse Ox 98.3 F 92 H 14 144/61 95 12/21/16 04:10 12/21/16 07:46 12/21/16 07:46 12/21/16 07:46 12/21/16 07:46 General appearance: Present: no acute distress - EENT Eyes: Present: PERRL ENT: hearing intact - Neck Neck: Present: supple - Respiratory Respiratory effort: normal Respiratory: bilateral: CTA - Cardiovascular Heart rate: 92 Rhythm: regular Heart Sounds: Present: S1 & S2 - Extremities Extremities: no ischemia Peripheral Pulses: within normal limits - Abdominal General gastrointestinal: Present: soft, non-tender Female genitourinary: Present: normal - Rectal Rectal Exam: deferred - Integumentary Integumentary: Present: clear, warm, dry - Musculoskeletal Musculoskeletal: strength equal bilaterally - Psychiatric Psychiatric: appropriate mood/affect - Neurologic Neurologic: CNII-XII intact - Allied Health Allied health notes reviewed: nursing Results - Labs CBC & Chem 7: 12/20/16 22:29 12/20/16 22:29 Labs: Laboratory Last Values WBC 6.6 K/mm3 (4.5-11.0) 12/20/16 22:29 RBC 2.82 M/mm3 (3.65-5.03) L 12/20/16 22:29 Hgb 8.8 gm/dl (10.1-14.3) L 12/20/16 22:29 Hct 27.1 % (30.3-42.9) L 12/20/16 22:29 MCV 96 fl (79-97) 12/20/16 22:29 MCH 31 pg (28-32) 12/20/16 22:29 MCHC 32 % (30-34) 12/20/16 22:29 RDW 15.8 % (13.2-15.2) H 12/20/16 22:29 Plt Count 353 K/mm3 (140-440) 12/20/16 22:29 Lymph % (Auto) 12.6 % (13.4-35.0) L 12/20/16 22:29 [place] % (Auto) 8.3 % (0.0-7.3) H 12/20/16 22:29 Eos % (Auto) 3.4 % (0.0-4.3) 12/20/16 22:29 Baso % (Auto) 0.4 % (0.0-1.8) 12/20/16 22: Lymph # 0.8 K/mm3 (1.2-5.4) L 12/20/16 22:29 [place] # 0.5 K/mm3 (0.0-0.8) 12/20/16 22: Eos # 0.2 K/mm3 (0.0-0.4) 12/20/16 22: Baso # 0.0 K/mm3 (0.0-0.1) 12/20/16 22: Seg Neutrophils % 75.3 % (40.0-70.0) H 12/20/16 22:29 Seg Neutrophils # 5.0 K/mm3 (1.8-7.7) 12/20/16 22:29 Sodium 140 mmol/L (137-145) 12/20/16 22:29 Potassium 5.1 mmol/L (3.6-5.0) H 12/20/16 22:29 Chloride 95.8 mmol/L (98-107) L 12/20/16 22:29 Carbon Dioxide 21 mmol/L (22-30) L 12/20/16 22:29 Anion Gap 28 mmol/L 12/20/16 22:29 BUN 83 mg/dL (7-17) H 12/20/16 22:29 Creatinine 6.4 mg/dL (0.7-1.2) H 12/20/16 22:29 Estimated GFR 8 ml/min 12/20/16 22:29 BUN/Creatinine Ratio 12.96 % 12/20/16 22:29 Glucose 121 mg/dL (65-100) H 12/20/16 22:29 POC Glucose 160 (70-105) H 12/20/16 23:58 Calcium 9.8 mg/dL (8.4-10.2) 12/20/16 22:29 Troponin T 0.291 ng/mL (0.00-0.029) H* 12/21/16 05:50 Triglycerides 87 mg/dL (2-149) 12/20/16 22:29 Cholesterol 116 mg/dL (50-199) 12/20/16 22:29 LDL Cholesterol Direct 38 mg/dL (50-130) L 12/20/16 22:29 HDL Cholesterol 61 mg/dL (40-59) H 12/20/16 22:29 Cholesterol/HDL Ratio 1.90 % 12/20/16 22:29 - Imaging and Cardiology Chest x-ray: image reviewed (borderline to mild cardiomegaly, stable. No acute cardiopulmonary processes) Assessment and Plan Assessment and plan: Patient is a 66 years -[place] female with past medical history of hypertension, diabetes mellitus, ESRD on hemodialysis , who presented to the ED complaining of left chest pain. She states that the pain began last night and consisted of a dull pain. The pain was located over her left chest area somewhat in the epigastric area and left breast bone. Chest x-ray-no focal infiltrates, no pneumothorax. Cardiac enzyme Troponin level is mildly elevated. EKG normal sinus rate [address] elevation or T-wave inversion. no significant change (compared to 12/02/2016). PLAN Chest Pain We will admit to telemetry EKG normal sinus rate [address] elevation or T-wave inversion. We will get another EKG ordered for a changes that have taken since the first one obtained We will repeat serial cardiac enzymes and follow cardiac enzymes troponin. Start on aspirin Nitroglycerin when necessary Morphine ordered for pain Patient had a negative treadmill stress test 12/03/2015 and echocardiogram with EF 65% patient seen by [facility] analytics specialist. Cardiology consulted Elevated Cardiac enzyme Troponin Troponin level is mildly elevated, most likely from ESRD Cardiology consulted End stage renal disease (ESRD) Patient will have emergent hemodialysis today Nephrology consulted Mild hyperkalemia needs Hemodialysis Patient will have hemodialysis today and will be correct it Closely monitor electrolytes Diabetes mellitus Sliding scale insulin/NovoLog Accu-Chek before meals and at bedtime Consistent carbohydrate /renal diet Hypertension We will resume home antihypertensive medication IV hydralazine for SBP >160 Closely monitor blood pressure DVT prophylaxis Heparin patient Full code Advance Directives: Yes VTE prophylaxis?: Chemical Contraindication Mechanical VTE Prophylaxis: Treatment Not Indicated Plan of care discussed with patient/family: Yes <CURTIS PATEL R - Last Filed: 12/21/16 14:07> History of Present Illness Date of admission: 12/21/16 08:05 Medications and Allergies Active Meds: Active Medications Acetaminophen (Tylenol) 650 mg PO Q4H PRN PRN Reason: Pain MILD(1-3)/Fever >100.5/PEREZ Aspirin (Aspirin) 325 mg PO DAILY [facility] Last Admin: 12/21/16 10:37 Dose: Not Given Bisacodyl (Dulcolax) 10 mg [place] QDAY PRN PRN Reason: Constipation unrelieved by MOM Clonidine HCl (Catapres) 0.3 mg PO TID [facility] Heparin Sodium (Porcine) (Heparin) 5,000 unit SUB-Q Q12H [facility] Last Admin: 12/21/16 11:06 Dose: 5,000 unit Heparin Sodium (Porcine) (Heparin 10,000 Units/10 Ml) 1,000 unit IV ANTOINETTE PRN PRN Reason: hemodialysis Sodium Chloride (Nacl 0.9%) 100 mls @ 999 mls/hr IV ANTOINETTE PRN PRN Reason: Hypotension Insulin Human NPH (Novolin N) 6 unit SUB-Q BIDDIAB [facility] Last Admin: 12/21/16 09:47 Dose: Not Given Labetalol HCl (Normodyne) 300 mg PO TID [facility] Lisinopril (Zestril) 20 mg PO BID [facility] Last Admin: 12/21/16 11:06 Dose: 20 mg Morphine Sulfate (Morphine) 2 mg IV Q4H PRN PRN Reason: Pain, Moderate (4-6) Multivit/Ca Carb/B Cmplx/FA/Prenat (Renal Caps) 1 cap PO QDAY [facility] Last Admin: 12/21/16 11:05 Dose: 1 cap Ondansetron HCl (Zofran) 4 mg IV Q4H PRN PRN Reason: Nausea And Vomiting Pantoprazole Sodium (Protonix) 40 mg PO DAILY [facility] Last Admin: 12/21/16 11:06 Dose: 40 mg Simvastatin (Zocor) 10 mg PO QHS [facility] Exam - Constitutional Vitals: Temp Pulse Resp BP Pulse Ox 98.6 F 84 16 140/65 98 12/21/16 13:55 12/21/16 13:55 12/21/16 13:55 12/21/16 13:55 12/21/16 13:55 Results - Labs CBC & Chem 7: 12/20/16 22:29 12/20/16 22:29 Labs: Laboratory Last Values WBC 6.6 K/mm3 (4.5-11.0) 12/20/16 22: RBC 2.82 M/mm3 (3.65-5.03) L 12/20/16 22:29 Hgb 8.8 gm/dl (10.1-14.3) L 12/20/16: Hct 27.1 % (30.3-42.9) L 12/20/16 22: MCV 96 fl (79-97) 12/20/16 22: MCH 31 pg (28-32) 12/20/16: MCHC 32 % (30-34) 12/20/16: RDW 15.8 % (13.2-15.2) H 12/20/16: Plt Count 353 K/mm3 (140-440) 12/20/16 22: Lymph % (Auto) 12.6 % (13.4-35.0) L 12/20/16 22: [place] % (Auto) 8.3 % (0.0-7.3) H 12/20/16 22: Eos % (Auto) 3.4 % (0.0-4.3) 12/20/16: Baso % (Auto) 0.4 % (0.0-1.8) 12/20/16: Lymph # 0.8 K/mm3 (1.2-5.4) L 12/20/16: [place] # 0.5 K/mm3 (0.0-0.8) 12/20/16 22: Eos # 0.2 K/mm3 (0.0-0.4) 12/20/16 22: Baso # 0.0 K/mm3 (0.0-0.1) 12/20/16: Seg Neutrophils % 75.3 % (40.0-70.0) H 12/20/16: Seg Neutrophils # 5.0 K/mm3 (1.8-7.7) 12/20/16 22: Sodium 140 mmol/L (137-145) 12/20/16: Potassium 5.1 mmol/L (3.6-5.0) H 12/20/16 22:29 Chloride 95.8 mmol/L (98-107) L 12/20/16 22:29 Carbon Dioxide 21 mmol/L (22-30) L 12/20/16 22:29 Anion Gap 28 mmol/L 12/20/16 22:29 BUN 83 mg/dL (7-17) H 12/20/16 22:29 Creatinine 6.4 mg/dL (0.7-1.2) H 12/20/16 22:29 Estimated GFR 8 ml/min 12/20/16 22:29 BUN/Creatinine Ratio 12.96 % 12/20/16 22:29 Glucose 121 mg/dL (65-100) H 12/20/16 22:29 POC Glucose 188 (70-105) H 12/21/16 09:43 Calcium 9.8 mg/dL (8.4-10.2) 12/20/16 22:29 Troponin T 0.291 ng/mL (0.00-0.029) H* 12/21/16 05:50 Triglycerides 87 mg/dL (2-149) 12/20/16 22:29 Cholesterol 116 mg/dL (50-199) 12/20/16 22:29 LDL Cholesterol Direct 38 mg/dL (50-130) L 12/20/16 22:29 HDL Cholesterol 61 mg/dL (40-59) H 12/20/16 22:29 Cholesterol/HDL Ratio 1.90 % 12/20/16 22:29 Assessment and Plan Assessment and plan: I have personally seen and examined the patient. I reviewed the Nurse Practitioner's note and agree with the assessment and plan; Additional history garnered from patient: Patient was discharged here on [address] Weldon for left jaw dental abscess. Patient attempted to go to her dentist but they had moved and closed the dental office. So she did not get a chance to go to a dentist as instructed. The left jaw dental infection has gotten better; therefore, she is not complaining of any pains or any problems. On exam there is a left mandible golf ball size hard fixed nodule present. I have referred her to [facility] (because she has been to [facility] before). Also she saw her PCP Dr. Pham yesterday for epigastric abdominal pains, she was not given any new medications. Current chest pain appears to be muscular skeletal in nature causes reproducible with touch, she still has epigastric pain may be due to GERD, which the chest pain may be related to, we'll treat with PPI.
[2016-12-21] MEDS ORDERED: NON-FORMULARY (Pravastatin Sodium [Pravastatin] 20 MG) PO SCH (10:00)
[2016-12-21] MEDS ORDERED: [UNRECOGNIZED DRUG - OTHER] PO SCH (10:00)
[2016-12-21] MEDS ORDERED: VIT B CPLX PO SCH (10:00)
[2016-12-21] MEDS ORDERED: NON-FORMULARY (Omeprazole [Omeprazole] 40 MG) PO SCH (10:00)
[2016-12-21] MEDS ORDERED: ZINC PO SCH (10:00)
[2016-12-21] MEDS ORDERED: DULCOLAX PR PRN (10:00)
[2016-12-21] MEDS ORDERED: ZN OX PO SCH (10:00)
[2016-12-21] MEDS ORDERED: BIOT PO SCH (10:00)
[2016-12-21] MEDS: ASPIRIN PO SCH (10:37)
[2016-12-21] MEDS: Renal Caps PO SCH (11:05)
[2016-12-21] MEDS: ZESTRIL PO SCH ×2 (11:06→21:23)
[2016-12-21] MEDS: HEPARIN SUB-Q SCH ×2 (11:06→21:24)
[2016-12-21] MEDS: PROTONIX PO SCH (11:06)
--- NOTE | 2016-12-21 11:18 | Consultation ---
History of Present Illness Consult date: 12/21/16 Requesting physician: LORRIE HERNANDEZ Consult reason: chest pain History of present illness: The patient is a 66 year old female with a past medical history significant for ESRD on HD, HTN, DM, GERD, mild MS, mild to moderate TR, trace AR. She is followed in our office by Dr. Christiansen. She presented with c/o epigastric and substernal pain since yesterday. She describes the pain as a constant dull pain which is nearly resolved on evaluation. She denies any SOB, palpitations, n/v, diaphoresis, dizziness or syncope. She states that her neighbor is who called EMS yesterday, even though pt did not feel that was necessary, and EMS made her come to ED. Pt states that her symptoms are consistent with indigestion. Pt reports that her GI doctor recently prescribed her a new medication for her acid reflux, but she did not get the prescription filled because she could not afford to pay for cab ride to the pharmacy. Of note, lexiscan MPI stress test done 07/2016 was negative for ischemia, EF 59% . Echo done 07/2016 showed EF 55-60%, mild MS, mild to moderate TR, trace AR, moderate to severe LVH, pseudonormalization pattern. Past History Past Medical History: diabetes, ESRD (on hemodialysis), GERD, hypertension Past Surgical History: No surgical history Social history: Lives alone. denies: smoking, alcohol abuse Family history: CAD, hypertension Medications and Allergies Allergies Allergy/AdvReac Type Severity Reaction Status Date / Time erythromycin base Allergy Rash Verified 06/17/15 21:56 [Erythromycin Base] lisinopril Allergy Swelling Verified 06/17/15 21:56 Home Medications Medication Instructions Recorded Confirmed Last Taken Type Furosemide 80 mg PO BID 06/18/14 12/21/16 1 Day Ago History Clonidine HCl [Catapres] 0.3 mg PO TID 09/03/15 12/21/16 11/13/16 History Insulin NPH, Human [NovoLIN N] 6 units PO BID 12/02/16 12/21/16 Unknown History Labetalol HCl [Trandate TAB] 300 mg PO TID 12/02/16 12/21/16 Unknown History Omeprazole 40 mg PO QDAY 12/02/16 12/21/16 Unknown History Ondansetron [Zofran TAB] 4 mg PO QID PRN 12/02/16 12/21/16 Unknown History Pravastatin Sodium [Pravastatin] 20 mg PO QDAY 12/02/16 12/21/16 Unknown History Sodium Polystyrene Sulfonate 15 kg PO 2XW 12/02/16 12/21/16 Unknown History [Kalexate] Vit B Cplx #11/FA/C/Biot/Zn Ox 1 tab PO QDAY 12/02/16 12/21/16 Unknown History [Dialyvite with Zinc Tablet] Lisinopril [Zestril] 20 mg PO BID 12/21/16 12/21/16 Unknown History Active Meds: Active Medications Acetaminophen (Tylenol) 650 mg PO Q4H PRN PRN Reason: Pain MILD(1-3)/Fever >100.5/PEREZ Aspirin (Aspirin) 325 mg PO DAILY COUNTS INCLUDE 234 BEDS AT THE [facility] Last Admin: 12/21/16 10:37 Dose: Not Given Bisacodyl (Dulcolax) 10 mg DC QDAY PRN PRN Reason: Constipation unrelieved by MOM Clonidine HCl (Catapres) 0.3 mg PO TID COUNTS INCLUDE 234 BEDS AT THE [facility] Heparin Sodium (Porcine) (Heparin) 5,000 unit SUB-Q Q12H COUNTS INCLUDE 234 BEDS AT THE [facility] Last Admin: 12/21/16 11:06 Dose: 5,000 unit Insulin Human NPH (Novolin N) 6 unit SUB-Q BIDDIAB COUNTS INCLUDE 234 BEDS AT THE [facility] Last Admin: 12/21/16 09:47 Dose: Not Given Labetalol HCl (Normodyne) 300 mg PO TID COUNTS INCLUDE 234 BEDS AT THE [facility] Lisinopril (Zestril) 20 mg PO BID COUNTS INCLUDE 234 BEDS AT THE [facility] Last Admin: 12/21/16 11:06 Dose: 20 mg Morphine Sulfate (Morphine) 2 mg IV Q4H PRN PRN Reason: Pain, Moderate (4-6) Multivit/Ca Carb/B Cmplx/FA/Prenat (Renal Caps) 1 cap PO QDAY COUNTS INCLUDE 234 BEDS AT THE [facility] Last Admin: 12/21/16 11:05 Dose: 1 cap Ondansetron HCl (Zofran) 4 mg IV Q4H PRN PRN Reason: Nausea And Vomiting Pantoprazole Sodium (Protonix) 40 mg PO DAILY COUNTS INCLUDE 234 BEDS AT THE [facility] Last Admin: 12/21/16 11:06 Dose: 40 mg Simvastatin (Zocor) 10 mg PO QHS COUNTS INCLUDE 234 BEDS AT THE [facility] Review of Systems Cardiovascular: chest pain, no orthopnea, no palpitations, no rapid/irregular heart beat, no edema, no syncope, no lightheadedness, no shortness of breath, no dyspnea on exertion, no paroxysmal nocturnal dyspnea, no high blood pressure , no leg edema, no decreased exercise tolerance Respiratory: no cough, no shortness of breath, no dyspnea on exertion, no congestion, no wheezing, no pain on inspiration Gastrointestinal: abdominal pain, indigestion, no nausea, no vomiting, no diarrhea, no constipation, no change in bowel habits Genitourinary Female: no pelvic pain, no flank pain, no menorrhagia, no dysuria , no urinary frequency, no urgency Physical Examination Vital Signs Temp Pulse Resp BP Pulse Ox 98.7 F 84 18 113/70 100 12/20/16 22:02 12/20/16 22:02 12/20/16 22:02 12/20/16 22:02 12/20/16 22:02 General appearance: no acute distress HEENT: Positive: PERRL, Normocephaly, Mucus Membranes Moist Neck: Positive: neck supple, trachea midline Cardiac: Positive: Reg Rate and Rhythm, S1/S2, Systolic Murmur Lungs: Positive: clear to auscultation Neuro: Positive: Grossly Intact, Cranial Nerve 2-12 Intact Abdomen: Positive: Unremarkable, Soft, Active Bowel Sounds. Negative: Tender Skin: Positive: Clear. Negative: Wound Extremities: Absent: edema Results 12/20/16 22:29 12/20/16 22:29 - Imaging and Cardiology Echo: report reviewed EKG: report reviewed, image reviewed EKG interpretations - Telemetry EKG Rhythm: Sinus Rhythm - EKG Sinus rhythms and dysrhythmias: sinus rhythm Assessment and Plan Assessment: Epigastric pain / substernal pain - ECG with NAF; suspect GERD. HTN HLP DM ESRD on HD - MWF schedule; pt followed by Dr. Lora. GERD mild MS / mild to moderate TR / trace AR Plan: In setting of recent negative stress test and echo in our office and near resolution of symptoms, no indication for any further cardiac testing at this time. Cont PPI per primary. Consider GI consultation. Currently stable cardiac status. Will see PRN. Recommend follow up in our office with Rachel Cerda NP, within 2 weeks of hospital discharge. The patient has been seen in conjunction with Dr. Hunter who agrees with the assessment and plan of care.
--- NOTE | 2016-12-21 12:45 | Consultation ---
History of Present Illness - Reason for Consult Consult date: 12/21/16 end stage renal disease - History of Present Illness Patient is a 66-year-old female with ESRD on HD TTS and hypertension who presented to the ED with chest pain and epigastric pain. She reports nausea but denies vomiting. She denies SOB, diaphoresis. She was admitted for further evaluation. At present, Mrs. Dueñas reports epigastric discomfort. She is chest pain free. Past History Past Medical History: diabetes, ESRD (on hemodialysis), GERD, hypertension Past Surgical History: No surgical history Social history: Lives alone. denies: smoking, alcohol abuse Family history: CAD, hypertension Medications and Allergies Allergies Allergy/AdvReac Type Severity Reaction Status Date / Time erythromycin base Allergy Rash Verified 06/17/15 21:56 [Erythromycin Base] lisinopril Allergy Swelling Verified 06/17/15 21:56 Home Medications Medication Instructions Recorded Confirmed Last Taken Type Furosemide 80 mg PO BID 06/18/14 12/21/16 1 Day Ago History Clonidine HCl [Catapres] 0.3 mg PO TID 09/03/15 12/21/16 11/13/16 History Insulin NPH, Human [NovoLIN N] 6 units PO BID 12/02/16 12/21/16 Unknown History Labetalol HCl [Trandate TAB] 300 mg PO TID 12/02/16 12/21/16 Unknown History Omeprazole 40 mg PO QDAY 12/02/16 12/21/16 Unknown History Ondansetron [Zofran TAB] 4 mg PO QID PRN 12/02/16 12/21/16 Unknown History Pravastatin Sodium [Pravastatin] 20 mg PO QDAY 12/02/16 12/21/16 Unknown History Sodium Polystyrene Sulfonate 15 kg PO 2XW 12/02/16 12/21/16 Unknown History [Kalexate] Vit B Cplx #11/FA/C/Biot/Zn Ox 1 tab PO QDAY 12/02/16 12/21/16 Unknown History [Dialyvite with Zinc Tablet] Lisinopril [Zestril] 20 mg PO BID 12/21/16 12/21/16 Unknown History Active Meds: Active Medications Acetaminophen (Tylenol) 650 mg PO Q4H PRN PRN Reason: Pain MILD(1-3)/Fever >100.5/PEREZ Aspirin (Aspirin) 325 mg PO DAILY [facility] Last Admin: 12/21/16 10:37 Dose: Not Given Bisacodyl (Dulcolax) 10 mg [place] QDAY PRN PRN Reason: Constipation unrelieved by MOM Clonidine HCl (Catapres) 0.3 mg PO TID [facility] Heparin Sodium (Porcine) (Heparin) 5,000 unit SUB-Q Q12H [facility] Last Admin: 12/21/16 11:06 Dose: 5,000 unit Insulin Human NPH (Novolin N) 6 unit SUB-Q BIDDIAB [facility] Last Admin: 12/21/16 09:47 Dose: Not Given Labetalol HCl (Normodyne) 300 mg PO TID [facility] Lisinopril (Zestril) 20 mg PO BID [facility] Last Admin: 12/21/16 11:06 Dose: 20 mg Morphine Sulfate (Morphine) 2 mg IV Q4H PRN PRN Reason: Pain, Moderate (4-6) Multivit/Ca Carb/B Cmplx/FA/Prenat (Renal Caps) 1 cap PO QDAY [facility] Last Admin: 12/21/16 11:05 Dose: 1 cap Ondansetron HCl (Zofran) 4 mg IV Q4H PRN PRN Reason: Nausea And Vomiting Pantoprazole Sodium (Protonix) 40 mg PO DAILY [facility] Last Admin: 12/21/16 11:06 Dose: 40 mg Simvastatin (Zocor) 10 mg PO QHS [facility] Review of Systems Constitutional: no fever Cardiovascular: chest pain (resolved), no shortness of breath Respiratory: no cough, no shortness of breath Gastrointestinal: abdominal pain, nausea, constipation, no vomiting, no diarrhea Integumentary: no rash Exam - Vital Signs Vital signs: Vital Signs Temp Pulse Resp BP Pulse Ox 98.7 F 84 18 113/70 100 12/20/16 22:02 12/20/16 22:02 12/20/16 22:02 12/20/16 22:02 12/20/16 22:02 - General Appearance General appearance: well-developed, frail EENT: ATNC Respiratory: Clear to Ascultation Heart: regular, S1S2 Gastrointestinal: Present: tenderness (epigastric). Absent: distended, guarding Integumentary: no rash Neurologic: alert and oriented x3 Musculoskeletal: Present: other (no edema) Psychiatric: cooperative Results - Lab Results 12/20/16 22:29 07/31/17 22:29 Most recent lab results Calcium 9.8 mg/dL (8.4-10.2) 12/20/16 22:29 Assessment and Plan Impression: * End stage renal disease on HD * Atypical chest pain * Accelerated hypertension * Anemia secondary to ESRD * Secondary hyperparathyroidism Plan: * Cardiology recs reviewed - patient w/ MPI stress test 07/2016 that was negative for ischemia, EF 59%. TTE 07/2016 showed EF 55-60%, mild MS, mild to moderate TR, trace AR, moderate to severe LVH, pseudonormalization pattern. * Hemodialysis today - continue TTS schedule * UF as tolerated * Hold Epogen until BP improved * Renal diet
[2016-12-21] MEDS ORDERED: NACL 0.9% 100 ML IV PRN (13:00)
[2016-12-21] MEDS: NORMODYNE PO SCH ×2 (14:00→20:36)
[2016-12-21] MEDS ORDERED: LABETALOL HCL 300 MG PO SCH (14:00)
[2016-12-21] MEDS ORDERED: NON-FORMULARY (Clonidine Hcl [Catapres] 0.3 MG) PO SCH (14:00)
[2016-12-21] MEDS ORDERED: NACL 0.9 (PRIMING MACHINE ONLY DIALYSIS) MC ONE (15:43)
[2016-12-21] MEDS: HEPARIN 10,000 UNITS/10 ML IV PRN (15:47)
[2016-12-21] MEDS: ZOFRAN IV PRN (17:29)
[2016-12-21] MEDS: CATAPRES PO SCH (17:47)
[2016-12-21] MEDS: ZOCOR PO SCH (21:23)
[2016-12-22] MEDS: CATAPRES PO SCH ×4 (01:29→21:22)
[2016-12-22] MEDS: NORMODYNE PO SCH ×3 (08:44→21:27)
[2016-12-22] MEDS: ZESTRIL PO SCH ×2 (10:14→21:23)
[2016-12-22] MEDS: PROTONIX PO SCH (10:14)
[2016-12-22] MEDS: Renal Caps PO SCH (10:14)
[2016-12-22] MEDS: ASPIRIN PO SCH (10:14)
[2016-12-22] MEDS: HEPARIN SUB-Q SCH ×2 (10:50→21:27)
--- NOTE | 2016-12-22 10:53 | Progress Note ---
Assessment and Plan Impression: * End stage renal disease on HD * Atypical chest pain * Accelerated hypertension * Anemia secondary to ESRD * Secondary hyperparathyroidism Plan: * Cardiology recs reviewed * Hemodialysis today - continue TTS schedule * UF as tolerated * Hold Epogen until BP improved * Renal diet Subjective Date of service: 12/22/16 Principal diagnosis: esrd Interval history: resting in bed today,no acute events noted Objective - Exam Narrative Exam: General appearance: well-developed, frail EENT: ATNC Respiratory: Clear to Ascultation Heart: regular, S1S2 Gastrointestinal: Present: tenderness (epigastric). Absent: distended, guarding Integumentary: no rash Neurologic: alert and oriented x3 Musculoskeletal: Present: other (no edema) Psychiatric: cooperative t - Vital Signs Vital signs: Vital Signs - 12hr 12/22/16 12/22/16 12/22/16 00:28 03:00 04:45 Temperature 97.6 F 97.6 F Pulse Rate 83 88 84 Respiratory 20 18 Rate Blood Pressure 128/62 141/68 O2 Sat by Pulse 99 98 Oximetry 12/22/16 12/22/16 12/22/16 08:43 08:44 08:53 Temperature 99.3 F Pulse Rate 87 87 87 Respiratory 18 Rate Blood Pressure 136/63 136/63 136/63 O2 Sat by Pulse 98 Oximetry 12/22/16 10:14 Temperature Pulse Rate 87 Respiratory Rate Blood Pressure 136/63 O2 Sat by Pulse Oximetry - Lab 12/20/16 22:29 12/20/16 22:29 Most recent lab results Calcium 9.8 mg/dL (8.4-10.2) 12/20/16 22:29
--- NOTE | 2016-12-22 13:26 | Progress Note ---
Assessment and Plan Assessment and plan: Patient is a 66 years -[place] female with past medical history of hypertension, diabetes mellitus2, ESRD on hemodialysis, who was discharged here on 12/08/[address] Weldon for left jaw dental abscess. Patient attempted to go to her dentist but they had moved and closed the dental office. So she did not get a chance to go to a dentist as instructed. The left jaw dental infection has gotten better; therefore, she is not complaining of any pains or any problems. On exam there is a left mandible golf ball size hard fixed nodule present. I have referred her to [facility] (because she has been to [facility] before). Also she saw her PCP Dr. Pham on Tuesday for epigastric abdominal pains, she was not given any new medications who presented to the ED complaining of left chest pain. Current chest pain appears to be musculoskeletal in nature reproducible with touch, she still has epigastric pain possibly due to GERD, which the chest pain may be related to, we'll treat with PPI. Patient had a negative treadmill stress test 12/03/2015 and echocardiogram with EF 65% patient seen by [employer] [facility]. Chest Pain We will admit to telemetry EKG normal sinus rate [address] elevation or T-wave inversion. We will get another EKG ordered for a changes that have taken since the first one obtained We will repeat serial cardiac enzymes and follow cardiac enzymes troponin. Start on aspirin Nitroglycerin when necessary Morphine ordered for pain Patient had a negative treadmill stress test 12/03/2015 and echocardiogram with EF 65% patient seen by [employer] [facility]. Cardiology consulted Elevated Cardiac enzyme Troponin Troponin level is mildly elevated, most likely from ESRD Cardiology consulted End stage renal disease (ESRD) with acidosis and hyperkalemia Patient will have emergent hemodialysis today Nephrology consulted Mild hyperkalemia needs Hemodialysis Patient will have hemodialysis today and will be correct it Closely monitor electrolytes Diabetes mellitus 2 on insuline Sliding scale insulin/NovoLog Accu-Chek before meals and at bedtime Consistent carbohydrate /renal diet Hypertension We will resume home antihypertensive medication IV hydralazine for SBP >160 Closely monitor blood pressure DVT prophylaxis Heparin patient Full code Right Jaw Mass with h/o jaw abscess: No ENT or Dentist available here, will Image the area without contrast due to ESRD History Interval history: Patient seen and examined. Follow up on current diagnosis/cp. Overnight uneventful. No cp, sob, n/v or severe headaches. Imaging, old records, testing, labs, nursing notes reviewed. Her main issue today is disequilibrium, left ear fullness and sinus drainage. Hospitalist Physical - Physical exam Narrative exam: GEN: thin frail, NAD, AWAKE, ALERT, ORIENTATED x 3 HEENT: > large hard mass left jaw originating from inside mouth PERRL, EOMI, OP CLEAR NECK: SUPPLE, large heart fixated left jaw mass distended to the mandible towards the ear CVS: RRR, NORMAL S1S2 LUNGS/CHEST: CTA B, NORMAL CHEST EXPANSION B, GOOD AIR ENTRY B ABD: SOFT, NTND, GBS, NO REBOUND OR GUARDING EXT/SKIN: NO SIGNIFICANT EDEMA OR RASH MSK: FROM X 4 EXTREMITIES NEURO: CN 2-12 GROSSLY INTACT, NO NEW FOCAL DEFICITS, tested her gait, unsteady but she got dizzy and was holding onto the bed PSY: CALM - Constitutional Vitals: Temp Pulse Resp BP Pulse Ox 99.1 F 88 16 112/57 100 12/22/16 12:12 12/22/16 12:12 12/22/16 12:12 12/22/16 12:12 12/22/16 12:12 General appearance: Present: no acute distress Results - Labs CBC & Chem 7: 12/20/16 22:29 12/20/16 22:29 Labs: Laboratory Last Values WBC 6.6 K/mm3 (4.5-11.0) 12/20/16 22:29 RBC 2.82 M/mm3 (3.65-5.03) L 12/20/16 22:29 Hgb 8.8 gm/dl (10.1-14.3) L 12/20/16 22:29 Hct 27.1 % (30.3-42.9) L 12/20/16 22:29 MCV 96 fl (79-97) 12/20/16 22:29 MCH 31 pg (28-32) 12/20/16 22:29 MCHC 32 % (30-34) 12/20/16 22:29 RDW 15.8 % (13.2-15.2) H 12/20/16 22:29 Plt Count 353 K/mm3 (140-440) 12/20/16 22:29 Lymph % (Auto) 12.6 % (13.4-35.0) L 12/20/16 22:29 Ray % (Auto) 8.3 % (0.0-7.3) H 12/20/16 22:29 Eos % (Auto) 3.4 % (0.0-4.3) 12/20/16 22:29 Baso % (Auto) 0.4 % (0.0-1.8) 12/20/16 22:29 Lymph # 0.8 K/mm3 (1.2-5.4) L 12/20/16 22:29 Ray # 0.5 K/mm3 (0.0-0.8) 12/20/16 22: Eos # 0.2 K/mm3 (0.0-0.4) 12/20/16 22: Baso # 0.0 K/mm3 (0.0-0.1) 12/20/16 22: Seg Neutrophils % 75.3 % (40.0-70.0) H 12/20/16 22:29 Seg Neutrophils # 5.0 K/mm3 (1.8-7.7) 12/20/16 22:29 Sodium 140 mmol/L (137-145) 12/20/16 22:29 Potassium 5.1 mmol/L (3.6-5.0) H 12/20/16 22:29 Chloride 95.8 mmol/L (98-107) L 12/20/16 22:29 Carbon Dioxide 21 mmol/L (22-30) L 12/20/16 22:29 Anion Gap 28 mmol/L 12/20/16 22:29 BUN 83 mg/dL (7-17) H 12/20/16 22:29 Creatinine 6.4 mg/dL (0.7-1.2) H 12/20/16 22:29 Estimated GFR 8 ml/min 12/20/16 22:29 BUN/Creatinine Ratio 12.96 % 12/20/16 22:29 Glucose 121 mg/dL (65-100) H 12/20/16 22:29 POC Glucose 188 (70-105) H 12/21/16 09:43 Calcium 9.8 mg/dL (8.4-10.2) 12/20/16 22:29 Troponin T 0.291 ng/mL (0.00-0.029) H* 12/21/16 05:50 Triglycerides 87 mg/dL (2-149) 12/20/16 22:29 Cholesterol 116 mg/dL (50-199) 12/20/16 22:29 LDL Cholesterol Direct 38 mg/dL (50-130) L 12/20/16 22:29 HDL Cholesterol 61 mg/dL (40-59) H 12/20/16 22:29 Cholesterol/HDL Ratio 1.90 % 12/20/16 22:29
[2016-12-22] MEDS: ZOCOR PO SCH (21:24)
[2016-12-23 06:02] LABS: Basophils % (Auto) 0.6 % (0.0-1.8); Eosinophils % (Auto) 2.1 % (0.0-4.3); Hematocrit 25.6 % (30.3-42.9); Hemoglobin 8.3 gm/dl (10.1-14.3); Mean Corpuscular HGB Conc 32 % (30-34); Mean Corpuscular Hemoglobin 31 pg (28-32); Mean Corpuscular Volume 96 fl (79-97); Platelet Count 294 K/mm3 (140-440); Red Blood Count 2.69 M/mm3 (3.65-5.03); Red Cell Distribution Width 15.3 % (13.2-15.2); White Blood Count 6.8 K/mm3 (4.5-11.0)
[2016-12-23 06:21] LABS: BUN/Creatinine Ratio 7.59; Calcium 9.7 mg/dL (8.4-10.2); Chloride 93.8 mmol/L (98-107); Potassium 4.6 mmol/L (3.6-5.0)
--- NOTE | 2016-12-23 07:25 | Progress Note ---
Assessment and Plan Impression: * End stage renal disease on HD * Atypical chest pain * Accelerated hypertension * Anemia secondary to ESRD * Secondary hyperparathyroidism Plan: * Cardiology recs reviewed * Hemodialysis TTS schedule * UF as tolerated' * hospitalist workup noted * epogen per protocol * strict i/os * plans for ct needed * Renal diet Subjective Date of service: 12/23/16 Principal diagnosis: esrd Interval history: resting in bed today,no acute events noted Objective - Exam Narrative Exam: General appearance: well-developed, frail EENT: ATNC Respiratory: Clear to Ascultation Heart: regular, S1S2 Gastrointestinal: Present: tenderness (epigastric). Absent: distended, guarding Integumentary: no rash Neurologic: alert and oriented x3 Musculoskeletal: Present: other (no edema) Psychiatric: cooperative t - Vital Signs Vital signs: Vital Signs - 12hr 12/22/16 12/22/16 12/22/16 19:58 20:00 21:22 Temperature 98.7 F Pulse Rate 86 85 86 Respiratory 20 Rate Blood Pressure 140/66 140/66 O2 Sat by Pulse 94 Oximetry 12/22/16 12/22/16 12/22/16 21:23 21:27 22:00 Temperature Pulse Rate 86 86 Respiratory 18 Rate Blood Pressure 140/66 140/66 O2 Sat by Pulse 99 Oximetry 12/23/16 12/23/16 12/23/16 00:08 04:00 06:13 Temperature 98.9 F 99.1 F Pulse Rate 81 80 87 Respiratory 21 20 Rate Blood Pressure 138/69 160/75 O2 Sat by Pulse 97 99 Oximetry - Lab 12/23/16 05:05 12/23/16 05:05 Most recent lab results Calcium 9.7 mg/dL (8.4-10.2) 12/23/16 05:05
[2016-12-23] MEDS ORDERED: NACL ONE (07:43)
[2016-12-23] MEDS: TYLENOL PO PRN ×2 (07:55→14:18)
[2016-12-23] MEDS: CATAPRES PO SCH ×2 (08:05→14:15)
[2016-12-23] MEDS: NORMODYNE PO SCH ×2 (08:05→14:14)
--- NOTE | 2016-12-23 08:56 | Cat Scan Report ---
CT HEAD WITH CONTRAST: HISTORY: Mass. TECHNIQUE: Sequential CT images in 2.5 mm intervals following IV contrast. FINDINGS: Images obtained show bilateral prominence of the sulci and ventricles. There are no abnormal intra- or extra-axial blood or fluid collections. There are no focal masses or evidence of mass effect. The ramesh white matter differentiation appears within normal limits. Regions of periventricular decreased attenuation are consistent with microangiopathic ischemic disease. The posterior fossa structures including the fourth ventricle, cerebellum, and brainstem appear normal. IMPRESSION: Evidence of atrophy and microangiopathic ischemic disease.
--- NOTE | 2016-12-23 08:59 | Cat Scan Report ---
CT NECK WITH CONTRAST: HISTORY: Right jaw mass. TECHNIQUE: Helical CT following IV contrast. Sagittal and coronal reformatted images. FINDINGS: There is a complex peripherally enhancing necrotic mass or abscess in the right facial soft tissues measuring 3.0 x 3.5 x 2.8 cm. This is located just lateral to the body of the mandible on the right side. In my opinion this is most consistent with an abscess. Laryngeal structures and upper trachea are unremarkable. Normal thyroid gland. The vascular structures are widely patent. Mild cervical spondylosis is noted. The imaged brain is unremarkable IMPRESSION: Soft tissue abscess versus necrotic mass in the right jaw region as described above. I favor an abscess.
[2016-12-23] MEDS ORDERED: NACL 0.9 (PRIMING MACHINE ONLY DIALYSIS) MC ONE (10:32)
[2016-12-23] MEDS: HEPARIN 10,000 UNITS/10 ML IV PRN (10:44)
[2016-12-23] MEDS: HEPARIN SUB-Q SCH (14:05)
[2016-12-23] MEDS: ZESTRIL PO SCH (14:15)
[2016-12-23] MEDS: Renal Caps PO SCH (14:15)
[2016-12-23] MEDS: ASPIRIN PO SCH (14:16)
[2016-12-23] MEDS: PROTONIX PO SCH (14:16)
[2016-12-23] MEDS: ZOFRAN IV PRN (14:19)
--- NOTE | 2016-12-23 14:55 | Progress Note ---
Assessment and Plan Assessment and plan: Patient is a 66 years -Romanian female with past medical history of hypertension, diabetes mellitus2, ESRD on hemodialysis, who was discharged here on 12/08/[address] Weldon for left jaw dental abscess. Patient attempted to go to her dentist but they had moved and closed the dental office. So she did not get a chance to go to a dentist as instructed. The left jaw dental infection has gotten better; therefore, she is not complaining of any pains or any problems. On exam there is a left mandible golf ball size hard fixed nodule present. I have referred her to [facility] (because she has been to [facility] before). Also she saw her PCP Dr. Pham on Tuesday for epigastric abdominal pains, she was not given any new medications who presented to the ED complaining of left chest pain. Current chest pain appears to be musculoskeletal in nature reproducible with touch, she still has epigastric pain possibly due to GERD, which the chest pain may be related to, we'll treat with PPI. Patient had a negative treadmill stress test 12/03/2015 and echocardiogram with EF 65% patient seen by [facility] family dinner service specialist. Chest Pain We will admit to telemetry EKG normal sinus rate [address] elevation or T-wave inversion. We will get another EKG ordered for a changes that have taken since the first one obtained We will repeat serial cardiac enzymes and follow cardiac enzymes troponin. Start on aspirin Nitroglycerin when necessary Morphine ordered for pain Patient had a negative treadmill stress test 12/03/2015 and echocardiogram with EF 65% patient seen by [facility] specialist. Cardiology consulted Elevated Cardiac enzyme Troponin Troponin level is mildly elevated, most likely from ESRD Cardiology consulted End stage renal disease (ESRD) with acidosis and hyperkalemia Patient will have emergent hemodialysis today Nephrology consulted Mild hyperkalemia needs Hemodialysis Patient will have hemodialysis today and will be correct it Closely monitor electrolytes Diabetes mellitus 2 on insuline Sliding scale insulin/NovoLog Accu-Chek before meals and at bedtime Consistent carbohydrate /renal diet Hypertension We will resume home antihypertensive medication IV hydralazine for SBP >160 Closely monitor blood pressure DVT prophylaxis Heparin patient Full code Right Jaw Mass with h/o jaw abscess: No ENT or Dentist available here, will Image the area without contrast due to ESRD 12/23/16 CT of the neck with IV contrast read S [place] tissue abscess versus necrotic mass in right jaw region measuring 3 x 3.5 cm located just lateral to the body of the mandible, radiologist favors an abscess, however, discussed with ENT Dr. Rodriguez and read her the report. Patient has no white count, no fevers so unlikely strickly an abscess, however, patient has been unintentionally losing significant amounts of weight and on exam the area is hard and fixed to the right mandible which is suspicious for a malignancy +/- infection/inflammation. Dr. Rodriguez has arranged an appointment on 2016 at 11 AM, address [address], [address], [place] [address] History Interval history: Patient seen and examined. Follow up on current diagnosis/cp. Overnight uneventful. No cp, sob, n/v or severe headaches. Imaging, old records, testing, labs, nursing notes reviewed. Her main issue today is disequilibrium, left ear fullness and sinus drainage. Hospitalist Physical - Physical exam Narrative exam: GEN: thin frail, NAD, AWAKE, ALERT, ORIENTATED x 3 HEENT: > large hard mass left jaw originating from inside mouth PERRL, EOMI, OP CLEAR NECK: SUPPLE, large heart fixated left jaw mass distended to the mandible towards the ear CVS: RRR, NORMAL S1S2 LUNGS/CHEST: CTA B, NORMAL CHEST EXPANSION B, GOOD AIR ENTRY B ABD: SOFT, NTND, GBS, NO REBOUND OR GUARDING EXT/SKIN: NO SIGNIFICANT EDEMA OR RASH MSK: FROM X 4 EXTREMITIES NEURO: CN 2-12 GROSSLY INTACT, NO NEW FOCAL DEFICITS, tested her gait, unsteady but she got dizzy and was holding onto the bed PSY: CALM - Constitutional Vitals: Temp Pulse Resp BP Pulse Ox 99.1 F 86 16 149/73 98 12/23/16 13:43 12/23/16 14:14 12/23/16 13:43 12/23/16 14:14 12/23/16 10:00 General appearance: Present: no acute distress Results - Labs CBC & Chem 7: 12/23/16 05:05 12/23/16 05:05 Labs: Laboratory Last Values WBC 6.8 K/mm3 (4.5-11.0) 12/23/16 05:05 RBC 2.69 M/mm3 (3.65-5.03) L 12/23/16 05:05 Hgb 8.3 gm/dl (10.1-14.3) L 12/23/16 05:05 Hct 25.6 % (30.3-42.9) L 12/23/16 05:05 MCV 96 fl (79-97) 12/23/16 05:05 MCH 31 pg (28-32) 12/23/16 05:05 MCHC 32 % (30-34) 12/23/16 05:05 RDW 15.3 % (13.2-15.2) H 12/23/16 05:05 Plt Count 294 K/mm3 (140-440) 12/23/16 05:05 Lymph % (Auto) 6.3 % (13.4-35.0) L 12/23/16 05:05 Mills % (Auto) 10.9 % (0.0-7.3) H 12/23/16 05:05 Eos % (Auto) 2.1 % (0.0-4.3) 12/23/16 05:05 Baso % (Auto) 0.6 % (0.0-1.8) 12/23/16 05:05 Lymph # 0.4 K/mm3 (1.2-5.4) L 12/23/16 05:05 Mills # 0.7 K/mm3 (0.0-0.8) 12/23/16 05:05 Eos # 0.1 K/mm3 (0.0-0.4) 12/23/16 05:05 Baso # 0.0 K/mm3 (0.0-0.1) 12/23/16 05:05 Seg Neutrophils % 80.1 % (40.0-70.0) H 12/23/16 05:05 Seg Neutrophils # 5.4 K/mm3 (1.8-7.7) 12/23/16 05:05 Sodium 137 mmol/L (137-145) 12/23/16 05:05 Potassium 4.6 mmol/L (3.6-5.0) 12/23/16 05:05 Chloride 93.8 mmol/L (98-107) L 12/23/16 05:05 Carbon Dioxide 26 mmol/L (22-30) 12/23/16 05:05 Anion Gap 22 mmol/L 12/23/16 05:05 BUN 41 mg/dL (7-17) H 12/23/16 05:05 Creatinine 5.4 mg/dL (0.7-1.2) H 12/23/16 05:05 Estimated GFR 10 ml/min 12/23/16 05:05 BUN/Creatinine Ratio 7.59 % 12/23/16 05:05 Glucose 110 mg/dL (65-100) H 12/23/16 05:05 POC Glucose 212 (70-105) H 12/22/16 20:53 Calcium 9.7 mg/dL (8.4-10.2) 12/23/16 05:05 Troponin T 0.291 ng/mL (0.00-0.029) H* 12/21/16 05:50 Triglycerides 87 mg/dL (2-149) 12/20/16 22:29 Cholesterol 116 mg/dL (50-199) 12/20/16 22:29 LDL Cholesterol Direct 38 mg/dL (50-130) L 12/20/16 22:29 HDL Cholesterol 61 mg/dL (40-59) H 12/20/16 22:29 Cholesterol/HDL Ratio 1.90 % 12/20/16 22:29
--- NOTE | 2016-12-23 14:56 | Discharge Summary ---
Providers - Providers Date of Admission: 12/21/16 08:05 Date of discharge: 12/23/16 Attending physician: CURTIS PATEL 12/21/16 08:08 Consult to Physician [CONS] Routine Consulting Provider: ALINE MOORE Reason For Exam: Chest Pain Place consult to:: yes Notified:: yes Phone number called:: yes Was contact made?: Yes 12/22/16 13:10 Physical Therapy Evaluation and Treat [CONS] Routine Comment: Reason For Exam: poor mobility 12/22/16 13:35 Consult to Physician [CONS] Routine Consulting Provider: ARELIS RODRIGUEZ Reason For Exam: Right Mandible Mass Place consult to:: Dr. Rodriguez Notified:: OFFICE Phone number called:: [phone] Was contact made?: Yes Time called:: 14:31 Comment:: DR. PATEL CALL IN THE CONSULT 12/23/16 07:25 Consult to Dietitian/Nutrition [CONS] Routine Physician Instructions: merissa santo Reason For Exam: Reason for Consult: Pt needs oral supplement Primary care physician: [facility]UMBER APPRENTICE Hospitalization Condition: Stable Hospital course: Patient is a 66 years -J[place] female with past medical history of hypertension, diabetes mellitus2, ESRD on hemodialysis, who was discharged here on 12/08/[address] Weldon for right jaw dental abscess. Patient attempted to go to her dentist but they had moved and closed the dental office. So she did not get a chance to go to a dentist as instructed. The jaw dental symptom got better (no pains). On exam there is a right mandible golf ball size hard fixed nodule present. I have referred her to [facility] (because she has been to [facility] before). Also she saw her PCP Dr. Pham on Tuesday for epigastric abdominal pains, she was not given any new medications. She presented to the ED complaining of left chest pain. Current chest pain appears to be musculoskeletal in nature reproducible with touch, she still has epigastric pain possibly due to GERD, which the chest pain may be related to, we 'll treat with PPI. Patient had a negative treadmill stress test 12/03/2015 and echocardiogram read as EF 65% by [facility]. Chest Pain We will admit to telemetry EKG normal sinus rate [address] elevation or T-wave inversion. We will get another EKG ordered for a changes that have taken since the first one obtained We will repeat serial cardiac enzymes and follow cardiac enzymes troponin. Start on aspirin Nitroglycerin when necessary Morphine ordered for pain Patient had a negative treadmill stress test 12/03/2015 and echocardiogram with EF 65% patient seen by [facility] vendor specialist. Cardiology consulted Elevated Cardiac enzyme Troponin Troponin level is mildly elevated, most likely from ESRD Cardiology consulted End stage renal disease (ESRD) with acidosis and hyperkalemia Patient will have emergent hemodialysis today Nephrology consulted Mild hyperkalemia needs Hemodialysis Patient will have hemodialysis today and will be correct it Closely monitor electrolytes Diabetes mellitus 2 on insuline Sliding scale insulin/NovoLog Accu-Chek before meals and at bedtime Consistent carbohydrate /renal diet Hypertension We will resume home antihypertensive medication IV hydralazine for SBP >160 Closely monitor blood pressure DVT prophylaxis Heparin patient Full code Right Jaw Mass with h/o jaw/Dental abscess, patient was noncompliant with follow up: No ENT or Dentist available here 12/23/16 CT of the neck with IV contrast read as soft tissue abscess versus necrotic mass in right jaw region measuring 3 x 3.5 x2.8 cm located just lateral to the body of the mandible, radiologist favors an abscess, however, discussed with ENT Dr. Rodriguez and read her the report. Patient has no white count, no fevers so unlikely strickly an abscess, however, patient has been unintentionally losing significant amounts of weight and on exam the area is hard and fixed to the right mandible which is suspicious for a malignancy +/ - infection/inflammation. Dr. Rodriguez has arranged an outpatient appointment on 12/27/2016 at 11 AM, address [address], [address], [place] [address] Will give her home Clindamycin abx x 10 days or possible oral/dental abscess. Disposition: DC-01 TO HOME OR SELFCARE Time spent for discharge: 42 minutes Core Measure Documentation - Palliative Care Palliative Care/ Comfort Measures: Not Applicable - Core Measures Any of the following diagnoses?: none - VTE Discharge Requirements Deep Vein Thrombosis/Pulmonary Embolism Present on Admission: No Has pt received <5 days of overlap therapy or INR<2.0: No Anticoagulant overlap therapy prescribed at discharge: No Contraindication No Overlap Therapy order at DC: Not Indicated Exam - Physical Exam Narrative exam: GEN: thin frail, NAD, AWAKE, ALERT, ORIENTATED x 3 HEENT: > large hard mass left jaw originating from inside mouth PERRL, EOMI, OP CLEAR NECK: SUPPLE, large heart fixated left jaw mass distended to the mandible towards the ear CVS: RRR, NORMAL S1S2 LUNGS/CHEST: CTA B, NORMAL CHEST EXPANSION B, GOOD AIR ENTRY B ABD: SOFT, NTND, GBS, NO REBOUND OR GUARDING EXT/SKIN: NO SIGNIFICANT EDEMA OR RASH MSK: FROM X 4 EXTREMITIES NEURO: CN 2-12 GROSSLY INTACT, NO NEW FOCAL DEFICITS, tested her gait, unsteady but she got dizzy and was holding onto the bed PSY: CALM - Constitutional Vitals: Temp Pulse Resp BP Pulse Ox 99.1 F 86 16 149/73 98 12/23/16 13:43 12/23/16 14:14 12/23/16 13:43 12/23/16 14:14 12/23/16 10:00 Plan Activity: fall precautions, other (no strenous activites until cleared by PCP. ) Diet: renal Additional Instructions: see Ear/Nose and Throat physicina, Dr. Arelis Baron on 12/27/2016 at 11 AM, Address [address], [address] , [place] [address] [address] in [place], [place]. Must still see Dentist. See Dr. Pham or partner tomorrow. Follow up with: PRIMARY CAREMD [Primary Care Provider] - 3-5 Days ARELIS RODRIGUEZ MD [Staff Physician] - 12/27/16 11:00 am Prescriptions: Clindamycin [Clindamycin CAP] 300 mg PO Q6H #10 day
[2016-12-23 17:42] VITALS: BP 127/57
== END 2016-12-23 18:48 | disposition home or self-care (01) | DRG 391 ==
LOC: ED 21:35 → 4A 12-21 08:05
PROVIDERS: ADMIT Internal Medicine; ATTEND Internal Medicine
PROC: 5A1D00Z (ICD-10-PCS; principal; 2016-12-21)
DX: K21.9 Gastro-esophageal reflux disease without esophagitis (principal); N18.6 End stage renal disease; I12.0 Hypertensive chronic kidney disease with stage 5 chronic kidney disease or end stage renal disease; E11.9 Type 2 diabetes mellitus without complications; Z60.2 Problems related to living alone; I07.1 Rheumatic tricuspid insufficiency; E78.5 Hyperlipidemia, unspecified; D63.1 Anemia in chronic kidney disease; E87.5 Hyperkalemia; E11.22 Type 2 diabetes mellitus with diabetic chronic kidney disease; Z88.8 Allergy status to other drugs, medicaments and biological substances; Z82.49 Family history of ischemic heart disease and other diseases of the circulatory system; Z99.2 Dependence on renal dialysis
CPT/HCPCS: 36415; 70460; 70491; 71010; 80048; 80061; 82962; 84484; 85025; 93005; 93010; 99285; G8978-GP; G8979-GP; G8980-GP; J0885; J1644; J1815; J2405; J7030; Q9967

== ENCOUNTER 2017-02-03 17:59 | Emergency (ER) | payer MEDICARE ==
[2017-02-03 18:06] VITALS: BP 113/69
[2017-02-03 18:30] LABS: Basophils % (Auto) 1.3 % (0.0-1.8); Eosinophils % (Auto) 2.8 % (0.0-4.3); Hematocrit 35.4 % (30.3-42.9); Hemoglobin 11.6 gm/dl (10.1-14.3); Mean Corpuscular HGB Conc 33 % (30-34); Mean Corpuscular Hemoglobin 31 pg (28-32); Mean Corpuscular Volume 93 fl (79-97); Platelet Count 265 K/mm3 (140-440); Red Cell Distribution Width 15.3 % (13.2-15.2); White Blood Count 3.3 K/mm3 (4.5-11.0)
[2017-02-03 18:50] LABS: BUN/Creatinine Ratio 5.6; Calcium 9.5 mg/dL (8.4-10.2); Chloride 92.2 mmol/L (98-107); Potassium 3.6 mmol/L (3.6-5.0)
== END 2017-02-03 22:00 | disposition left against medical advice (07) ==
LOC: ED 17:59
DX: R51 Headache (principal); Z53.21 Procedure and treatment not carried out due to patient leaving prior to being seen by health care provider
CPT/HCPCS: 36415; 80048; 85025; 93005; 93010

== ENCOUNTER 2017-02-14 11:25 | Emergency (ER) | payer MEDICARE ==
[2017-02-14] MEDS ORDERED: TYLENOL PO ONE (11:54)
[2017-02-14] MEDS ORDERED: TORADOL IM ONE (12:27)
[2017-02-14 12:31] LABS: Basophils % (Auto) 0.9 % (0.0-1.8); Eosinophils % (Auto) 4.1 % (0.0-4.3); Hematocrit 37.2 % (30.3-42.9); Mean Corpuscular HGB Conc 32 % (30-34); Mean Corpuscular Hemoglobin 30 pg (28-32); Mean Corpuscular Volume 92 fl (79-97); Platelet Count 214 K/mm3 (140-440); Red Blood Count 4.04 M/mm3 (3.65-5.03); Red Cell Distribution Width 14.5 % (13.2-15.2); White Blood Count 5.8 K/mm3 (4.5-11.0)
[2017-02-14 12:32] LABS: Albumin 4.4 g/dL (3.9-5); Albumin/Globulin Ratio 1.5 %; BUN/Creatinine Ratio 9.34; Bilirubin,Total 0.2 mg/dL (0.1-1.2); Calcium 9.1 mg/dL (8.4-10.2); Total Protein 7.3 g/dL (6.3-8.2)
[2017-02-14 12:33] LABS: Chloride 92.3 mmol/L (98-107); Potassium 5.2 mmol/L (3.6-5.0)
--- NOTE | 2017-02-14 13:02 | Emergency Department Report ---
ED Fall HPI - General Chief Complaint: Multiple Trauma Stated Complaint: FALL/LT HAND PAIN Time Seen by Provider: 02/14/17 12:22 Source: EMS Mode of arrival: Ambulatory - History of Present Illness Initial Comments: 66 years old female h/o ESRD on HD, stated that she was going down a stair when she lost her balance and fell and hit the stairwell complaining of left eye swelling, bilateral index finger pain, knee pain. Patient denied any loss of consciousness, headache, neck pain or back pain. No symptoms before the fall. 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 Fall Witnessed: no Place Fall Occurred: home Loss of Consciousness: none Prolonged Down Time?: no Symptoms Prior to Fall: none Location - Extremities: Left: Hand, Right: Hand Severity scale (0 -10): 7 Quality: sharp - Related Data Home Medications Medication Instructions Recorded Confirmed Last Taken Furosemide 80 mg PO BID 06/18/14 12/21/16 1 Day Ago Clonidine HCl [Catapres] 0.3 mg PO TID 09/03/15 12/21/16 11/13/16 Insulin NPH, Human [NovoLIN N] 6 units PO BID 12/02/16 12/21/16 Unknown Labetalol HCl [Trandate TAB] 300 mg PO TID 12/02/16 12/21/16 Unknown Omeprazole 40 mg PO QDAY 12/02/16 12/21/16 Unknown Ondansetron [Zofran TAB] 4 mg PO QID PRN 12/02/16 12/21/16 Unknown Pravastatin Sodium [Pravastatin] 20 mg PO QDAY 12/02/16 12/21/16 Unknown Sodium Polystyrene Sulfonate 15 kg PO 2XW 12/02/16 12/21/16 Unknown [Kalexate] Vit B Cplx #11/FA/C/Biot/Zn Ox 1 tab PO QDAY 12/02/16 12/21/16 Unknown [Dialyvite with Zinc Tablet] Lisinopril [Zestril TAB] 20 mg PO BID 12/21/16 12/21/16 Unknown Previous Rx's Medication Instructions Recorded Last Taken Type Acetaminophen [Acetaminophen TAB] 325 mg PO Q4H PRN #30 tablet 12/23/16 Unknown Rx Clindamycin [Clindamycin CAP] 300 mg PO Q6H #10 day 12/23/16 Unknown Rx Allergies Allergy/AdvReac Type Severity Reaction Status Date / Time erythromycin base Allergy Rash Verified 12/23/16 07:46 [Erythromycin Base] ED Review of Systems ROS: Stated complaint: FALL/LT HAND PAIN Other details as noted in HPI Comment: All other systems reviewed and negative Constitutional: denies: chills, fever ENT: denies: ear pain, throat pain Respiratory: denies: cough, shortness of breath Cardiovascular: denies: chest pain, palpitations Gastrointestinal: denies: abdominal pain, nausea, vomiting, constipation, hematemesis Musculoskeletal: denies: back pain Skin: denies: rash Neurological: denies: headache, weakness ED Past Medical Hx - Past Medical History Previous Medical History?: Yes Hx Hypertension: Yes Hx CVA: No Hx Heart Attack/AMI: No Hx Congestive Heart Failure: No Hx Diabetes: Yes Hx Deep Vein Thrombosis: No Hx Pulmonary Embolism: No Hx GERD: Yes Hx Liver Disease: No Hx Renal Disease: Yes (HD T,TH,Sat) Hx of Cancer: No Hx Sickle Cell Disease: No Hx Arthritis: No Hx Headaches / Migraines: No Hx Seizures: No Hx Kidney Stones: No Hx Psychiatric Treatment: No Hx Asthma: No Hx COPD: No Hx Tuberculosis: No Hx Dementia: No Hx HIV: No - Surgical History Past Surgical History?: Yes Hx Coronary Stent: No Hx Open Heart Surgery: No Hx Pacemaker: No Hx Internal Defibrillator: No Hx Cholecystectomy: No Hx Appendectomy: No Hx Breast Surgery: No Additional Surgical History: graft left arm - Social History Smoking Status: Never Smoker Substance Use Type: None - Medications Home Medications: Home Medications Medication Instructions Recorded Confirmed Last Taken Type Furosemide 80 mg PO BID 06/18/14 12/21/16 1 Day Ago History Clonidine HCl [Catapres] 0.3 mg PO TID 09/03/15 12/21/16 11/13/16 History Insulin NPH, Human [NovoLIN N] 6 units PO BID 12/02/16 12/21/16 Unknown History Labetalol HCl [Trandate TAB] 300 mg PO TID 12/02/16 12/21/16 Unknown History Omeprazole 40 mg PO QDAY 12/02/16 12/21/16 Unknown History Ondansetron [Zofran TAB] 4 mg PO QID PRN 12/02/16 12/21/16 Unknown History Pravastatin Sodium [Pravastatin] 20 mg PO QDAY 12/02/16 12/21/16 Unknown History Sodium Polystyrene Sulfonate 15 kg PO 2XW 12/02/16 12/21/16 Unknown History [Kalexate] Vit B Cplx #11/FA/C/Biot/Zn Ox 1 tab PO QDAY 12/02/16 12/21/16 Unknown History [Dialyvite with Zinc Tablet] Lisinopril [Zestril TAB] 20 mg PO BID 12/21/16 12/21/16 Unknown History Acetaminophen [Acetaminophen TAB] 325 mg PO Q4H PRN #30 tablet 12/23/16 Unknown Rx Clindamycin [Clindamycin CAP] 300 mg PO Q6H #10 day 12/23/16 Unknown Rx ED Physical Exam - General Limitations: No Limitations General appearance: alert, in no apparent distress - Head Head exam: Present: atraumatic - Eye Eye exam: Present: normal appearance - ENT ENT exam: Present: normal exam - Neck Neck exam: Present: normal inspection - Respiratory Respiratory exam: Present: normal lung sounds bilaterally. Absent: wheezes - Cardiovascular Cardiovascular Exam: Present: regular rate, normal rhythm, normal heart sounds - GI/Abdominal GI/Abdominal exam: Present: soft, normal bowel sounds. Absent: distended, tenderness, guarding, rebound, rigid - Extremities Exam Extremities exam: Present: normal inspection, other (bilateral index finger tenderness) - Back Exam Back exam: Present: normal inspection. Absent: CVA tenderness (R), CVA tenderness (L) - Neurological Exam Neurological exam: Present: alert, oriented X3, CN II-XII intact, normal gait ED Course Vital Signs 02/14/17 02/14/17 02/14/17 11:29 11:36 11:45 Temperature 98.1 F Pulse Rate 89 Respiratory 18 Rate Blood Pressure 202/83 Blood Pressure 202/83 [Right] O2 Sat by Pulse 100 100 100 Oximetry 02/14/17 02/14/17 02/14/17 11:52 12:01 12:15 Temperature 98.3 F Pulse Rate 84 89 89 Respiratory 16 23 18 Rate Blood Pressure 197/134 202/83 Blood Pressure 202/83 [Right] O2 Sat by Pulse 99 98 Oximetry 02/14/17 02/14/17 02/14/17 12:31 12:45 13:09 Temperature Pulse Rate 87 86 91 H Respiratory 18 16 19 Rate Blood Pressure 202/83 197/134 172/79 Blood Pressure [Right] O2 Sat by Pulse Oximetry 02/14/17 02/14/17 02/14/17 13:15 13:31 13:43 Temperature Pulse Rate 87 86 Respiratory 14 16 16 Rate Blood Pressure 172/79 172/79 Blood Pressure [Right] O2 Sat by Pulse 99 Oximetry 02/14/17 02/14/17 02/14/17 13:46 14:00 14:16 Temperature Pulse Rate 86 87 87 Respiratory 15 14 11 L Rate Blood Pressure 172/79 172/79 174/75 Blood Pressure [Right] O2 Sat by Pulse Oximetry 02/14/17 02/14/17 02/14/17 14:30 14:46 15:00 Temperature Pulse Rate 89 86 86 Respiratory 13 16 14 Rate Blood Pressure 174/75 174/75 176/78 Blood Pressure [Right] O2 Sat by Pulse Oximetry 02/14/17 15:16 Temperature Pulse Rate 86 Respiratory 17 Rate Blood Pressure 176/78 Blood Pressure [Right] O2 Sat by Pulse Oximetry - Reevaluation(s) Reevaluation #1: 02/14/17 14:01 Patient stated that when she fell she hit her head and left eye she also had a swelling in her left eye. ED Medical Decision Making - Lab Data Result diagrams: 02/14/17 11:55 02/14/17 11:55 - Radiology Data Radiology results: report reviewed CT brain showed left subdural hematoma acute, CT facial bones showed left medial orbital wall fracture. Left knee x-ray negative for acute fracture. Bilateral index finger negative for fracture. - Medical Decision Making Patient's CT showed acute subdural hematoma left side patient be transferred to [facility]. Dr. Evelyne Carcamo accepted the patient Critical Care Time: Yes Critical care time in (mins) excluding proc time.: 36 Critical care attestation.: If time is entered above; I have spent that time in minutes in the direct care of this critically ill patient, excluding procedure time. ED Disposition Clinical Impression: Acute subdural hematoma, Orbital fracture Disposition: DC/TX-70 ANOTHER TYPE HLTHCARE Is pt being admited?: No Condition: Stable Referrals: PRIMARY CARE, [Primary Care Provider] - 3-5 Days
--- NOTE | 2017-02-14 14:38 | XRay Report ---
LEFT KNEE RADIOGRAPHS INDICATION: Fall. COMPARISON: None similar. FINDINGS: AP, oblique and crosstable lateral left knee radiographs demonstrate normal bony articulation and appearance for age. Extensive atherosclerotic vascular calcifications. Unremarkable soft tissues. No suprapatellar effusion. CONCLUSION: No acute left knee radiographic abnormality, as described. Thank you for the opportunity to participate in this patient's care.
--- NOTE | 2017-02-14 14:58 | XRay Report ---
BILATERAL HAND RADIOGRAPHS INDICATION: Pain. COMPARISON: None similar. FINDINGS: AP, lateral and oblique radiographs of both hands demonstrate extensive atherosclerotic vascular calcifications. Bony demineralization. Arthritic changes at the first carpometacarpal joint noted, left much more advanced on the right, including first metacarpal base lucency/possible old nonunited fracture versus a 6 mm cystic erosion on the frontal view with partial trapezium collapse as well. Normal remainder bony articulation. Mild soft tissue swelling overlying the distal ulna also not excluded. CONCLUSION: Bilateral first carpometacarpal joint degenerative changes, left much greater than right. Extensive atherosclerotic vascular calcifications also seen bilaterally. Thank you for the opportunity to participate in this patient's care.
--- NOTE | 2017-02-14 16:09 | Cat Scan Report ---
CT HEAD WITHOUT CONTRAST: HISTORY: Head injury. Compared to 12/23/16. A small acute left subdural hemorrhage is identified measuring less than 5 mm in thickness. There is no significant mass effect or midline shift. Mild nonspecific chronic white matter changes are identified. Otherwise, the brain parenchyma is within normal limits. There is no evidence for intraparenchymal hemorrhage. No chronic infarct or hydrocephalus. The ramesh-white interface is well defined. The posterior fossa and contents are within normal limits. IMPRESSION: Small acute left subdural hemorrhage as described. These findings were discussed with Dr. Liang in the emergency department at 1400 hrs.
--- NOTE | 2017-02-14 16:10 | Cat Scan Report ---
CT FACIAL BONES WITHOUT CONTRAST: HISTORY: Facial trauma, pain. TECHNIQUE: Helical CT images with sagittal and coronal CT reformations. FINDINGS: A left medial orbital wall fracture is identified. There is a small amount of gas in the left retro-orbital space. The remaining facial bones are intact. Orbital contents are intact and unremarkable. The mandible and zygomas are intact. IMPRESSION: Left medial orbital wall fracture. These findings were discussed with Dr. Liang in the emergency department at 1400 hrs.
[2017-02-14] MEDS ORDERED: MORPHINE ONE (17:36)
[2017-02-14] MEDS ORDERED: ZOFRAN ONE (17:37)
[2017-02-14 17:41] VITALS: BP 173/80
[2017-02-14] MEDS ORDERED: MORPHINE IV ONE (17:41)
[2017-02-14] MEDS ORDERED: ZOFRAN IV ONE (17:42)
== END 2017-02-14 18:00 | disposition other institution (70) ==
LOC: ED 11:25
DX: S06.5X0A Traumatic subdural hemorrhage without loss of consciousness, initial encounter (principal); S02.82XA Fracture of other specified skull and facial bones, left side, initial encounter for closed fracture; K21.9 Gastro-esophageal reflux disease without esophagitis; E11.22 Type 2 diabetes mellitus with diabetic chronic kidney disease; I12.0 Hypertensive chronic kidney disease with stage 5 chronic kidney disease or end stage renal disease; N18.6 End stage renal disease; Z79.4 Long term (current) use of insulin; Z88.8 Allergy status to other drugs, medicaments and biological substances; W10.8XXA Fall (on) (from) other stairs and steps, initial encounter; Y93.89 Activity, other specified; Y92.89 Other specified places as the place of occurrence of the external cause; Y99.8 Other external cause status
CPT/HCPCS: 36415; 70450; 70486; 73130; 73562; 80053; 83690; 85025; 96372; 96374; 96375; 99291; J1885; J2270; J2405

== ENCOUNTER 2017-08-16 17:58 | Emergency (ER) | payer MEDICARE ==
[2017-08-16 18:30] VITALS: BP 120/71
--- NOTE | 2017-08-16 18:58 | Emergency Department Report ---
ED ENT HPI - General Chief complaint: Sore Throat Stated complaint: SORE THROAT/RUNNY NOSE Time Seen by Provider: 08/16/17 18:43 Source: patient Mode of arrival: Ambulatory Limitations: Physical Limitation - History of Present Illness Initial comments: 66-year-old hemodialysis patient comes in for complaint of runny nose sore throat sneezing. She also complains of left arm pain and swelling. Patient does have her shunt in her left arm. She denies any trauma to to the left arm. She did elicit that she has appointment tomorrow with orthopedics in regards to her left arm and left shoulder as well as she was referred to vascular for her left arm. Patient denies any fever or chills no nausea no vomiting. She reported that she went to dialysis today. -: week(s) (few) Severity scale (0 -10): 9 Associated Symptoms: sore throat, rhinorrhea, other (sneezing, runny eyes). denies: fever, cough, pain with swallowing, discharge from ear - Related Data Home Medications Medication Instructions Recorded Confirmed Last Taken Furosemide 80 mg PO BID 06/18/14 02/14/17 1 Day Ago ~08/17/16 Clonidine HCl [Catapres] 0.3 mg PO TID 09/03/15 02/14/17 11/13/16 B Complex 11/Folic/C/Biot/Zinc 1 tab PO QDAY 12/02/16 02/14/17 Unknown [Dialyvite with Zinc Tablet] Insulin NPH, Human [NovoLIN N] 6 units PO BID 12/02/16 02/14/17 Unknown Labetalol HCl [Trandate TAB] 300 mg PO TID 12/02/16 02/14/17 Unknown Omeprazole 40 mg PO QDAY 12/02/16 02/14/17 Unknown Ondansetron [Zofran TAB] 4 mg PO QID PRN 12/02/16 02/14/17 Unknown Pravastatin Sodium [Pravastatin] 20 mg PO QDAY 12/02/16 02/14/17 Unknown Sodium Polystyrene Sulfonate 15 kg PO 2XW 12/02/16 02/14/17 Unknown [Kalexate] Lisinopril [Zestril TAB] 20 mg PO BID 12/21/16 02/14/17 Unknown Previous Rx's Medication Instructions Recorded Last Taken Type Acetaminophen [Acetaminophen TAB] 325 mg PO Q4H PRN #30 tablet 12/23/16 Unknown Rx Clindamycin [Clindamycin CAP] 300 mg PO Q6H #10 day 12/23/16 Unknown Rx Cetirizine HCl [ZyrTEC] 10 mg PO QDAY #30 capsule 08/16/17 Unknown Rx Fluticasone [Flonase] 1 spray NS QDAY #1 bottle 08/16/17 Unknown Rx Allergies Allergy/AdvReac Type Severity Reaction Status Date / Time erythromycin base Allergy Rash Verified 12/23/16 07:46 [Erythromycin Base] ED Dental HPI - General Chief complaint: Sore Throat Stated complaint: SORE THROAT/RUNNY NOSE Time Seen by Provider: 08/16/17 18:43 Source: patient Mode of arrival: Ambulatory Limitations: Physical Limitation - Related Data Home Medications Medication Instructions Recorded Confirmed Last Taken Furosemide 80 mg PO BID 06/18/14 02/14/17 1 Day Ago ~08/17/16 Clonidine HCl [Catapres] 0.3 mg PO TID 09/03/15 02/14/17 11/13/16 B Complex 11/Folic/C/Biot/Zinc 1 tab PO QDAY 12/02/16 02/14/17 Unknown [Dialyvite with Zinc Tablet] Insulin NPH, Human [NovoLIN N] 6 units PO BID 12/02/16 02/14/17 Unknown Labetalol HCl [Trandate TAB] 300 mg PO TID 12/02/16 02/14/17 Unknown Omeprazole 40 mg PO QDAY 12/02/16 02/14/17 Unknown Ondansetron [Zofran TAB] 4 mg PO QID PRN 12/02/16 02/14/17 Unknown Pravastatin Sodium [Pravastatin] 20 mg PO QDAY 12/02/16 02/14/17 Unknown Sodium Polystyrene Sulfonate 15 kg PO 2XW 12/02/16 02/14/17 Unknown [Kalexate] Lisinopril [Zestril TAB] 20 mg PO BID 12/21/16 02/14/17 Unknown Previous Rx's Medication Instructions Recorded Last Taken Type Acetaminophen [Acetaminophen TAB] 325 mg PO Q4H PRN #30 tablet 12/23/16 Unknown Rx Clindamycin [Clindamycin CAP] 300 mg PO Q6H #10 day 12/23/16 Unknown Rx Cetirizine HCl [ZyrTEC] 10 mg PO QDAY #30 capsule 08/16/17 Unknown Rx Fluticasone [Flonase] 1 spray NS QDAY #1 bottle 08/16/17 Unknown Rx Allergies Allergy/AdvReac Type Severity Reaction Status Date / Time erythromycin base Allergy Rash Verified 12/23/16 07:46 [Erythromycin Base] ED Review of Systems ROS: Stated complaint: SORE THROAT/RUNNY NOSE Other details as noted in HPI Constitutional: denies: chills, fever Eyes: eye discharge (runny eyes Meagher) ENT: throat pain (scratchy throat), other (rhinorrhea) Respiratory: denies: cough, shortness of breath, wheezing Cardiovascular: denies: chest pain, palpitations Endocrine: no symptoms reported Gastrointestinal: denies: abdominal pain, nausea, diarrhea Genitourinary: denies: urgency, dysuria, discharge Musculoskeletal: arthralgia, other (swelling of the left arm which is chronic) Skin: denies: rash, lesions Neurological: denies: headache, weakness, paresthesias Psychiatric: denies: anxiety, depression Hematological/Lymphatic: denies: easy bleeding, easy bruising ED Past Medical Hx - Past Medical History Hx Hypertension: Yes Hx CVA: No Hx Heart Attack/AMI: No Hx Congestive Heart Failure: No Hx Diabetes: Yes Hx Deep Vein Thrombosis: No Hx Pulmonary Embolism: No Hx GERD: Yes Hx Liver Disease: No Hx Renal Disease: Yes (HD T,TH,Sat) Hx Sickle Cell Disease: No Hx Arthritis: No Hx Headaches / Migraines: No Hx Seizures: No Hx Kidney Stones: No Hx Psychiatric Treatment: No Hx Asthma: No Hx COPD: No Hx Tuberculosis: No Hx Dementia: No Hx HIV: No - Surgical History Hx Coronary Stent: No Hx Open Heart Surgery: No Hx Pacemaker: No Hx Internal Defibrillator: No Hx Cholecystectomy: No Hx Appendectomy: No Hx Breast Surgery: No Additional Surgical History: graft left arm - Social History Smoking Status: Never Smoker Substance Use Type: None - Medications Home Medications: Home Medications Medication Instructions Recorded Confirmed Last Taken Type Furosemide 80 mg PO BID 06/18/14 02/14/17 1 Day Ago History ~08/17/16 Clonidine HCl [Catapres] 0.3 mg PO TID 09/03/15 02/14/17 11/13/16 History B Complex 11/Folic/C/Biot/Zinc 1 tab PO QDAY 12/02/16 02/14/17 Unknown History [Dialyvite with Zinc Tablet] Insulin NPH, Human [NovoLIN N] 6 units PO BID 12/02/16 02/14/17 Unknown History Labetalol HCl [Trandate TAB] 300 mg PO TID 12/02/16 02/14/17 Unknown History Omeprazole 40 mg PO QDAY 12/02/16 02/14/17 Unknown History Ondansetron [Zofran TAB] 4 mg PO QID PRN 12/02/16 02/14/17 Unknown History Pravastatin Sodium [Pravastatin] 20 mg PO QDAY 12/02/16 02/14/17 Unknown History Sodium Polystyrene Sulfonate 15 kg PO 2XW 12/02/16 02/14/17 Unknown History [Kalexate] Lisinopril [Zestril TAB] 20 mg PO BID 12/21/16 02/14/17 Unknown History Acetaminophen [Acetaminophen TAB] 325 mg PO Q4H PRN #30 tablet 12/23/16 Unknown Rx Clindamycin [Clindamycin CAP] 300 mg PO Q6H #10 day 12/23/16 02/14/17 Unknown Rx Cetirizine HCl [ZyrTEC] 10 mg PO QDAY #30 capsule 08/16/17 Unknown Rx Fluticasone [Flonase] 1 spray NS QDAY #1 bottle 08/16/17 Unknown Rx ED Physical Exam - General Limitations: Physical Limitation General appearance: alert, in no apparent distress - Head Head exam: Present: atraumatic, normocephalic - Eye Eye exam: Present: normal appearance. Absent: periorbital tenderness - ENT ENT exam: Present: mucous membranes moist - Expanded ENT Exam Expanded TM/Canal exam: Cerumen Impaction: Right TM, Left TM Teeth exam: Absent: gingival enlargement Throat exam: Positive: normal inspection. Negative: tonsillar erythema, tonsillomegaly - Neck Neck exam: Present: normal inspection - Respiratory Respiratory exam: Present: normal lung sounds bilaterally. Absent: respiratory distress - Cardiovascular Cardiovascular Exam: Present: regular rate, normal rhythm. Absent: systolic murmur, diastolic murmur, rubs, gallop - GI/Abdominal GI/Abdominal exam: Present: soft, normal bowel sounds - Extremities Exam Extremities exam: Present: normal inspection, full ROM - Expanded Upper Extremity Exam Left Shoulder Exam: Present: normal inspection, swelling, other (patent shunt thrill) Upper Arm exam: Present: full ROM Elbow exam: Present: swelling. Absent: tenderness Hand Wrist exam: Present: swelling. Absent: tenderness - Neurological Exam Neurological exam: Present: alert, oriented X3 - Psychiatric Psychiatric exam: Present: normal affect, normal mood - Skin Skin exam: Present: warm, dry, intact, normal color. Absent: rash ED Course Vital Signs 08/16/17 18:22 Temperature 98.6 F Pulse Rate 100 H Respiratory 16 Rate Blood Pressure 120/71 O2 Sat by Pulse 100 Oximetry ED Medical Decision Making - Medical Decision Making She's been evaluated by this provider fast track. Discussed the patient that the swelling in her left arm most likely due to positional since she has a shunt and she hangs her left arm down with elevation that the fluid will settle at the lowest point. I recommend patient to elevate her arm and hand above her heart especially at bedtime. Recommend patient to keep her appointment with orthopedist as scheduled for tomorrow as well as follow up with her primary care provider who Dr. Froylan Arreguin. Also discussed the patient that her runny nose and sneezing and sore throat is most likely due to allergic rhinitis and seasonal allergies. Discussed patient that she take a long-acting antihistamine such as Zyrtec Myriam or Claritin. I discussed patient to stay away from [facility] since this on the [email or web address] list. Critical care attestation.: If time is entered above; I have spent that time in minutes in the direct care of this critically ill patient, excluding procedure time. ED Disposition Clinical Impression: Left arm swelling Allergic rhinitis Qualifiers: Allergic rhinitis trigger: unspecified Allergic rhinitis seasonality: unspecified seasonality Qualified Code(s): J30.9 - Allergic rhinitis, unspecified Disposition: - TO HOME OR SELFCARE Is pt being admited?: No Does the pt Need Aspirin: No Condition: Stable Instructions: Allergic Rhinitis (ED) Additional Instructions: Take medication as prescribed. Please follow up with her primary care provider as well as keep your appointment for orthopedics as scheduled tomorrow. Prescriptions: Cetirizine HCl [ZyrTEC] 10 mg PO QDAY #30 capsule Fluticasone [Flonase] 1 spray NS QDAY #1 bottle Referrals: FROYLAN ARREGUIN MD [Staff Physician] - 3-5 Days Forms: Work/School Release Form(ED)
== END 2017-08-16 19:20 | disposition home or self-care (01) ==
LOC: ED 17:58
DX: J30.9 Allergic rhinitis, unspecified (principal); M79.89 Other specified soft tissue disorders; E11.22 Type 2 diabetes mellitus with diabetic chronic kidney disease; I12.0 Hypertensive chronic kidney disease with stage 5 chronic kidney disease or end stage renal disease; N18.6 End stage renal disease; K21.9 Gastro-esophageal reflux disease without esophagitis; Z99.2 Dependence on renal dialysis; Z88.1 Allergy status to other antibiotic agents
CPT/HCPCS: 99283

== ENCOUNTER 2017-09-15 15:39 | Emergency (ER) | payer MEDICARE ==
--- NOTE | 2017-09-15 20:15 | Emergency Department Report ---
ED General Adult HPI - General Chief complaint: High BP Stated complaint: HYPERTENSIVE Time Seen by Provider: 09/15/17 20:07 Source: patient Mode of arrival: Wheelchair Limitations: No Limitations - History of Present Illness Initial comments: Patient is 66 years old female with history of end-stage renal disease on hemodialysis. Patient went for dialysis this morning and they checked her blood pressure and it was more than 200 systolic and she was told by her potassium was high too. Patient stated that she finished dialysis today and she took her blood pressure medicine pill and asked what brought her blood pressure down. She is here today to check her potassium actually that is not high. Patient denied any symptoms at this moment. - Related Data Home Medications Medication Instructions Recorded Confirmed Last Taken Furosemide 80 mg PO BID PRN 06/18/14 08/19/17 1 Day Ago ~08/17/16 Clonidine HCl [Catapres] 0.2 mg PO TID 09/03/15 08/19/17 08/17/17 09:00 B Complex 11/Folic/C/Biot/Zinc 1 tab PO QDAY 12/02/16 08/19/17 08/17/17 09:00 [Dialyvite with Zinc Tablet] 1 tab Insulin NPH, Human [NovoLIN N] 6 units PO BID 12/02/16 08/19/17 Unknown Labetalol HCl [Trandate TAB] 200 mg PO DAILY 12/02/16 08/19/17 08/17/17 09:00 200mg Ondansetron [Zofran TAB] 4 mg PO QID PRN 12/02/16 08/19/17 Unknown Pravastatin Sodium [Pravastatin] 20 mg PO QDAY 12/02/16 08/19/17 Unknown Sodium Polystyrene Sulfonate 15 kg PO 2XW 12/02/16 08/19/17 Unknown [Kalexate] Lisinopril [Zestril TAB] 20 mg PO DAILY 12/21/16 08/19/17 08/17/17 09:00 20mg Previous Rx's Medication Instructions Recorded Last Taken Type Acetaminophen [Acetaminophen TAB] 325 mg PO Q4H PRN #30 tablet 12/23/16 21:00 Rx 325mg Cetirizine HCl [ZyrTEC] 10 mg PO QDAY #30 capsule 08/16/17 Unknown Rx Fluticasone [Flonase] 1 spray NS QDAY #1 bottle 08/16/17 Unknown Rx Pantoprazole [Protonix] 40 mg PO BID #60 tablet 08/27/17 Unknown Rx Allergies Allergy/AdvReac Type Severity Reaction Status Date / Time erythromycin base Allergy Rash Verified 12/23/16 07:46 [Erythromycin Base] ED Review of Systems ROS: Stated complaint: HYPERTENSIVE Other details as noted in HPI Comment: All other systems reviewed and negative Constitutional: denies: chills, fever Respiratory: denies: cough, orthopnea, shortness of breath, SOB with exertion, SOB at rest, wheezing Cardiovascular: denies: chest pain, palpitations, dyspnea on exertion, orthopnea Gastrointestinal: denies: abdominal pain, nausea, vomiting, diarrhea, constipation, hematemesis, hematochezia Musculoskeletal: denies: back pain Neurological: denies: headache, weakness, numbness, paresthesias, confusion, abnormal gait, vertigo ED Past Medical Hx - Past Medical History Hx Hypertension: Yes Hx CVA: No Hx Heart Attack/AMI: No Hx Congestive Heart Failure: No Hx Diabetes: Yes Hx Deep Vein Thrombosis: No Hx Pulmonary Embolism: No Hx GERD: Yes Hx Liver Disease: No Hx Renal Disease: Yes (HD T,TH,Sat) Hx Sickle Cell Disease: No Hx Arthritis: No Hx Headaches / Migraines: No Hx Seizures: No Hx Kidney Stones: No Hx Psychiatric Treatment: No Hx Asthma: No Hx COPD: No Hx Tuberculosis: No Hx Dementia: No Hx HIV: No - Surgical History Hx Coronary Stent: No Hx Open Heart Surgery: No Hx Pacemaker: No Hx Internal Defibrillator: No Hx Cholecystectomy: No Hx Appendectomy: No Hx Breast Surgery: No Additional Surgical History: graft left arm - Social History Smoking Status: Never Smoker Substance Use Type: None - Medications Home Medications: Home Medications Medication Instructions Recorded Confirmed Last Taken Type Furosemide 80 mg PO BID PRN 06/18/14 08/19/17 1 Day Ago History ~08/17/16 Clonidine HCl [Catapres] 0.2 mg PO TID 09/03/15 08/19/17 08/17/17 09:00 History B Complex 11/Folic/C/Biot/Zinc 1 tab PO QDAY 12/02/16 08/19/17 08/17/17 09:00 History [Dialyvite with Zinc Tablet] 1 tab Insulin NPH, Human [NovoLIN N] 6 units PO BID 12/02/16 08/19/17 Unknown History Labetalol HCl [Trandate TAB] 200 mg PO DAILY 12/02/16 08/19/17 08/17/17 09:00 History 200mg Ondansetron [Zofran TAB] 4 mg PO QID PRN 12/02/16 08/19/17 Unknown History Pravastatin Sodium [Pravastatin] 20 mg PO QDAY 12/02/16 08/19/17 Unknown History Sodium Polystyrene Sulfonate 15 kg PO 2XW 12/02/16 08/19/17 Unknown History [Kalexate] Lisinopril [Zestril TAB] 20 mg PO DAILY 12/21/16 08/19/17 08/17/17 09:00 History 20mg Acetaminophen [Acetaminophen TAB] 325 mg PO Q4H PRN #30 tablet 12/23/1608/17/17 21:00 Rx 325mg Cetirizine HCl [ZyrTEC] 10 mg PO QDAY #30 capsule 08/16/17 08/19/17 Unknown Rx Fluticasone [Flonase] 1 spray NS QDAY #1 bottle 08/16/17 08/19/17 Unknown Rx Pantoprazole [Protonix] 40 mg PO BID #60 tablet 08/27/17 Unknown Rx ED Physical Exam - General Limitations: No Limitations General appearance: alert, in no apparent distress - Head Head exam: Present: atraumatic, normocephalic, normal inspection - Eye Eye exam: Present: normal appearance, PERRL - ENT ENT exam: Present: normal exam, normal orophraynx, mucous membranes moist - Neck Neck exam: Present: normal inspection, full ROM. Absent: tenderness, meningismus, lymphadenopathy, thyromegaly - Respiratory Respiratory exam: Present: normal lung sounds bilaterally. Absent: respiratory distress, wheezes, rales, rhonchi, stridor - Cardiovascular Cardiovascular Exam: Present: regular rate, normal rhythm, normal heart sounds - GI/Abdominal GI/Abdominal exam: Present: soft, normal bowel sounds. Absent: distended, tenderness, guarding, rebound, rigid, organomegaly, mass, bruit, pulsatile mass , hernia - Extremities Exam Extremities exam: Present: normal inspection, full ROM, normal capillary refill. Absent: tenderness, pedal edema, joint swelling, calf tenderness - Back Exam Back exam: Present: normal inspection, full ROM. Absent: CVA tenderness (R), CVA tenderness (L), muscle spasm, paraspinal tenderness, vertebral tenderness - Neurological Exam Neurological exam: Present: alert, oriented X3, CN II-XII intact, normal gait - Skin Skin exam: Present: warm, intact, normal color ED Course Vital Signs 09/15/17 09/15/17 09/15/17 15:53 20:27 20:30 Temperature 98.5 F 97.9 F Pulse Rate 94 H 88 89 Respiratory 16 18 15 Rate Blood Pressure 154/75 194/89 Blood Pressure 197/91 [Right] O2 Sat by Pulse 99 100 97 Oximetry 09/15/17 09/15/17 09/15/17 20:49 21:00 21:30 Temperature Pulse Rate 89 86 85 Respiratory 14 14 Rate Blood Pressure 194/89 191/90 164/75 Blood Pressure [Right] O2 Sat by Pulse 100 99 Oximetry 09/15/17 09/15/17 09/15/17 22:00 22:30 23:30 Temperature Pulse Rate 81 81 80 Respiratory 13 15 14 Rate Blood Pressure 151/70 148/72 142/80 Blood Pressure [Right] O2 Sat by Pulse 97 99 98 Oximetry - Reevaluation(s) Reevaluation #1: 09/16/17 00:23 Patient remained asymptomatic in the ER, blood pressure is 142/80. Potassium is 4.5. Patient already had complete cessation of her dialysis. Patient denied any shortness of breath, chest pain or difficulty breathing. ED Medical Decision Making - Lab Data Result diagrams: 09/15/17 20:28 09/15/17 20:28 Critical care attestation.: If time is entered above; I have spent that time in minutes in the direct care of this critically ill patient, excluding procedure time. ED Disposition Clinical Impression: Malignant hypertension, ESRD on hemodialysis Disposition: -01 TO HOME OR SELFCARE Is pt being admited?: No Condition: Stable Instructions: Hypertension (ED), Chronic Kidney Disease (ED)
[2017-09-15 20:43] LABS: Basophils % (Auto) 0.8 % (0.0-1.8); Eosinophils # (Auto) 0.1 K/mm3 (0.0-0.4); Eosinophils % (Auto) 2.9 % (0.0-4.3); Hematocrit 42.5 % (30.3-42.9); Hemoglobin 13.7 gm/dl (10.1-14.3); Lymphocytes # (Auto) 0.6 K/mm3 (1.2-5.4); Lymphocytes % (Auto) 11.3 % (13.4-35.0); Mean Corpuscular HGB Conc 32 % (30-34); Mean Corpuscular Hemoglobin 29 pg (28-32); Mean Corpuscular Volume 90 fl (79-97); Monocytes # (Auto) 0.4 K/mm3 (0.0-0.8); Monocytes % (Auto) 8.2 % (0.0-7.3); Platelet Count 271 K/mm3 (140-440); Red Blood Count 4.71 M/mm3 (3.65-5.03); Red Cell Distribution Width 16.2 % (13.2-15.2)
[2017-09-15] MEDS ORDERED: CATAPRES PO ONE (20:43)
[2017-09-15 20:57] LABS: Calcium 9.2 mg/dL (8.4-10.2)
[2017-09-15 23:39] VITALS: BP 142/80
[2017-09-16] MEDS ORDERED: TYLENOL PO ONE (01:06)
== END 2017-09-16 02:46 | disposition home or self-care (01) ==
LOC: ED 15:39
DX: E11.22 Type 2 diabetes mellitus with diabetic chronic kidney disease (principal); I12.0 Hypertensive chronic kidney disease with stage 5 chronic kidney disease or end stage renal disease; N18.6 End stage renal disease; Z99.2 Dependence on renal dialysis
CPT/HCPCS: 36415; 80048; 85025; 99283

== ENCOUNTER 2018-09-30 11:52 | Inpatient (IN) | payer MEDICARE ==
--- NOTE | 2018-09-30 12:26 | Emergency Department Report ---
ED General Adult HPI - General Chief complaint: Weakness Stated complaint: LOW HEMOGLOBIN Time Seen by Provider: 09/30/18 12:16 Source: EMS Mode of arrival: Stretcher Limitations: No Limitations - History of Present Illness Initial comments: Patient is 67 years old female with history of end stage renal disease on hemodialysis, anemia with a recent blood transfusion. Patient sent from dialysis center after patient was found to have a hemoglobin of 5.7. Patient denied any chest pain, shortness of breath, hematemesis, hemoptysis, melena or hematochezia. Patient also denied any fever or chills. Severity scale (0 -10): 6 - Related Data Home Medications Medication Instructions Recorded Confirmed Last Taken Ferric Citrate (Nf) [Auryxia (Nf)] 630 mg PO TIDWM 09/05/18 09/05/18 Unknown Furosemide [Lasix] 80 mg PO QDAY PRN 09/05/18 09/05/18 Unknown Pantoprazole [Protonix TAB] 40 mg PO QDAY 09/05/18 09/05/18 Unknown Raloxifene HCl [Evista] 60 mg PO QDAY 09/05/18 09/05/18 Unknown Previous Rx's Medication Instructions Recorded Last Taken Type ISOSORBIDE MONOnitrate [Imdur ER] 60 mg PO QDAY tablet 09/07/18 Unknown Rx Insulin Regular, Human [HumuLIN R] 0 unit SQ AC #1 vial 09/07/18 Unknown Rx Labetalol [Normodyne TAB] 200 mg PO QDAY #30 tablet 09/07/18 Unknown Rx Lisinopril [Zestril TAB] 20 mg PO DAILY tablet 09/07/18 Unknown Rx cloNIDine [Catapres] 0.2 mg PO TID #30 tablet 09/07/18 Unknown Rx Allergies Allergy/AdvReac Type Severity Reaction Status Date / Time erythromycin base Allergy Rash Verified 09/05/18 14:03 [Erythromycin Base] ED Review of Systems ROS: Stated complaint: LOW HEMOGLOBIN Other details as noted in HPI Comment: All other systems reviewed and negative Constitutional: denies: chills, fever Respiratory: denies: cough, orthopnea, shortness of breath, SOB with exertion, SOB at rest, wheezing Cardiovascular: denies: chest pain, palpitations Gastrointestinal: denies: abdominal pain, nausea, vomiting, diarrhea, constipation, hematemesis, melena Musculoskeletal: denies: back pain Neurological: denies: headache, weakness, numbness, paresthesias, confusion ED Past Medical Hx - Past Medical History Previous Medical History?: Yes Hx Hypertension: Yes Hx CVA: No Hx Heart Attack/AMI: No Hx Congestive Heart Failure: No Hx Diabetes: Yes Hx Deep Vein Thrombosis: No Hx Pulmonary Embolism: No Hx GERD: Yes Hx Liver Disease: No Hx Renal Disease: Yes (HD T,TH,Sat) Hx Sickle Cell Disease: No Hx Arthritis: No Hx Headaches / Migraines: No Hx Seizures: No Hx Kidney Stones: No Hx Psychiatric Treatment: No Hx Asthma: No Hx COPD: No Hx Tuberculosis: No Hx Dementia: No Hx HIV: No Additional medical history: anemia - Surgical History Past Surgical History?: Yes Hx Coronary Stent: No Hx Open Heart Surgery: No Hx Pacemaker: No Hx Internal Defibrillator: No Hx Cholecystectomy: No Hx Appendectomy: No Hx Breast Surgery: No Additional Surgical History: graft left arm - Social History Smoking Status: Never Smoker Substance Use Type: None - Medications Home Medications: Home Medications Medication Instructions Recorded Confirmed Last Taken Type Ferric Citrate (Nf) [Auryxia (Nf)] 630 mg PO TIDWM 09/05/18 09/05/18 Unknown History Furosemide [Lasix] 80 mg PO QDAY PRN 09/05/18 09/05/18 Unknown History Pantoprazole [Protonix TAB] 40 mg PO QDAY 09/05/18 09/05/18 Unknown History Raloxifene HCl [Evista] 60 mg PO QDAY 09/05/18 09/05/18 Unknown History ISOSORBIDE MONOnitrate [Imdur ER] 60 mg PO QDAY tablet 09/07/18 Unknown Rx Insulin Regular, Human [HumuLIN R] 0 unit SQ AC #1 vial 09/07/18 Unknown Rx Labetalol [Normodyne TAB] 200 mg PO QDAY #30 tablet 09/07/18 Unknown Rx Lisinopril [Zestril TAB] 20 mg PO DAILY tablet 09/07/18 Unknown Rx cloNIDine [Catapres] 0.2 mg PO TID #30 tablet 09/07/18 Unknown Rx ED Physical Exam - General Limitations: No Limitations General appearance: alert, in no apparent distress - Head Head exam: Present: atraumatic, normocephalic, normal inspection - Eye Eye exam: Present: normal appearance - ENT ENT exam: Present: normal exam, normal orophraynx, mucous membranes moist - Neck Neck exam: Present: normal inspection, full ROM. Absent: tenderness, meningismus, lymphadenopathy, thyromegaly - Respiratory Respiratory exam: Present: normal lung sounds bilaterally - Cardiovascular Cardiovascular Exam: Present: regular rate, normal rhythm, normal heart sounds - GI/Abdominal GI/Abdominal exam: Present: soft, normal bowel sounds. Absent: distended, tenderness, guarding, rebound, rigid - Extremities Exam Extremities exam: Present: normal inspection, full ROM, normal capillary refill - Back Exam Back exam: Present: normal inspection, full ROM. Absent: tenderness, CVA tenderness (R), CVA tenderness (L), muscle spasm, paraspinal tenderness, vertebral tenderness - Neurological Exam Neurological exam: Present: alert, oriented X3, CN II-XII intact, normal gait, reflexes normal - Psychiatric Psychiatric exam: Present: normal mood - Skin Skin exam: Present: warm, intact, normal color ED Course Vital Signs 09/30/18 09/30/18 09/30/18 12:09 12:20 12:30 Temperature 98.6 F Pulse Rate 89 88 88 Respiratory 14 14 15 Rate Blood Pressure O2 Sat by Pulse 100 100 100 Oximetry 09/30/18 09/30/18 09/30/18 12:45 13:00 13:15 Temperature Pulse Rate 89 88 90 Respiratory 21 14 21 Rate Blood Pressure 161/72 161/72 161/67 O2 Sat by Pulse 100 100 100 Oximetry 09/30/18 09/30/18 09/30/18 13:30 13:46 14:00 Temperature Pulse Rate 88 90 97 H Respiratory 15 16 17 Rate Blood Pressure 161/72 160/58 151/53 O2 Sat by Pulse 100 100 100 Oximetry ED Medical Decision Making - Lab Data Result diagrams: 09/30/18 12:24 09/30/18 12:24 - Medical Decision Making Patient is 67 years old female with history of end stage renal disease on hemodialysis, anemia with a recent blood transfusion. Patient sent from dialysis center after patient was found to have a hemoglobin of 5.7. Patient denied any chest pain, shortness of breath, hematemesis, hemoptysis, melena or hematochezia. Patient also denied any fever or chills. Patient found to have a hemoglobin of 5.17. One units of PRBC ordered. I discussed the patient is Dr. Daniels, who came to see the patient in the emergency room. I discussed the patient with Dr. Yan he agreed to admit the patient to medical service. Critical Care Time: Yes Critical care time in (mins) excluding proc time.: 30 Critical care attestation.: If time is entered above; I have spent that time in minutes in the direct care of this critically ill patient, excluding procedure time. ED Disposition Clinical Impression: Acute anemia, ESRD on hemodialysis Disposition: OP ADMIT IP TO THIS HOSP Is pt being admited?: Yes Condition: Stable Referrals: [facility] [Other] - 3-5 Days
[2018-09-30 13:02] LABS: Basophils % (Auto) 0.5 % (0.0-1.8); Eosinophils # (Auto) 0.2 K/mm3 (0.0-0.4); Eosinophils % (Auto) 2.9 % (0.0-4.3); Lymphocytes # (Auto) 0.5 K/mm3 (1.2-5.4); Lymphocytes % (Auto) 9.8 % (13.4-35.0); Mean Corpuscular HGB Conc 32 % (30-34); Mean Corpuscular Volume 83 fl (79-97); Monocytes # (Auto) 0.4 K/mm3 (0.0-0.8); Monocytes % (Auto) 7.8 % (0.0-7.3); Platelet Count 349 K/mm3 (140-440); Red Blood Count 2.12 M/mm3 (3.65-5.03)
[2018-09-30 13:14] LABS: INR 1.05 (0.87-1.13)
[2018-09-30 13:15] LABS: Partial Thromboplastin Time 36.8 Sec. (24.2-36.6)
[2018-09-30 13:22] LABS: Calcium 8.5 mg/dL (8.4-10.2)
[2018-09-30 13:25] LABS: Alanine Aminotransferase 8 units/L (7-56); Albumin 3.4 g/dL (3.9-5)
[2018-09-30 13:26] LABS: Iron 20 ug/dL (37-170); Total Iron Binding Capacity 329 mcg/dL (250-450)
[2018-09-30 13:29] LABS: Bilirubin,Direct < 0.2 mg/dL (0-0.2)
[2018-09-30 13:39] LABS: Hematocrit 17.6 % (30.3-42.9); Hemoglobin 5.7 gm/dl (10.1-14.3); Red Cell Distribution Width 20.6 % (13.2-15.2)
[2018-09-30] MEDS ORDERED: NACL 0.9% 500 ML 500 ML IV ONE ×2 (13:44→18:56)
[2018-09-30] MEDS ORDERED: NACL 0.9% 100 ML IV PRN ×2 (14:23→17:19)
[2018-09-30] MEDS ORDERED: NACL 0.9% 1000 ML 1,000 ML ONE (16:56)
[2018-09-30] MEDS ORDERED: PROCRIT IV PRN (17:19)
[2018-09-30 18:12] LABS: Hepatitis B Surface Antigen Non-Reactive (Negative); Hepatitis C Virus Antibody Non-Reactive (NonReactive)
--- NOTE | 2018-09-30 18:35 | Consultation ---
History of Present Illness - History of Present Illness Thank you for the consultation ! Patient was evaluated today My assessment and plan are as follows; End-stage renal disease: Patient is currently on hemodialysis, and will need to continue with hemodialysis on Tuesday and Tuesday schedule. Anemia and end-stage renal disease: Monitor hemoglobin and hematocrit erythropoietin as needed. Workup as required requested emergency room physician, to order 2 units of packed red blood cell to be given during dialysis Secondary hyperparathyroidism: Check phosphorus and PTH level periodically, binders as needed Dialysis access: Currently working well, good flow Malnutrition risk: High consider high-protein diet dietitian evaluation and follow-up in general 1.5 g protein per KG body weight Fluid restriction: 1200 cc per day not to exceed more than that, noncompliant with fluid restriction She needs complete workup for anemia including GI and hemat eval Adequately counseled and educated about other hospital related issues as well Labs were discussed with patient and simple Sudanese Patient does appear to have good understanding of all the dialysis related issues Patient was adequately counseled and educated regarding multiple renal related issues. Renal prognosis remains guarded at this time All renal related questions were answered and simple Sudanese pertinent lab studies as well as imaging results were also discussed with patient We will continue to follow and make recommendations from renal standpoint. Thank you for the consultation Author: Dany Daniels M.D. [facility], [address] [place] [address] Tel; [phone] Source of information: From patient History of present illness Patient is a 67-year-old -[place] female who is currently in maintenance hemodialysis and was sent to the hospital due to severe anemia, patient's hemogl obin was 5.7 in the ER with a hematocrit of 17.6 packed red blood cell as well as workup for anemia is currently being ordered by emergency room physician with whom I discussed the case, patient is also due for dialysis today she has some complaints of swelling in both lower extremity she does have a working fistula, nation denies having any bloody or tarry stool Patient does not comply very well with the sodium and fluid intake Patient denies having any blood in the stool she has been seen by [facility] in the past Past medical history: end-stage renal disease Hypertension Anemia Secondary hyperparathyroidism Chronic swelling in both lower extremity Current allergies: Reviewed from the current chart Social history: Reviewed from the current chart Family history: Reviewed from the current chart Review of system: Positive for Some weakness fatigue some dyspnea on exertion Swelling in both lower extremity which is chronic All other review of systems negative Physical examination Vitals: Reviewed General: No acute distress HEENT: Oral mucosa moist no pallor or icterus Neck: Supple without any JVD thyromegaly or nodular mass Chest: Clear to auscultation Heart: Regular rate and rhythm S1-S2 heard no S3-S4 Abdomen: Soft nontender, bowel sounds present no renal bruit no suprapubic masses no CVA tenderness noted Extremity: 1+edema dry skin no peripheral cyanosis Endocrine: Thyroid not enlarged Psychiatric: No agitation and aggression noted Musculoskeletal: No joint effusion noted Labs and x-rays: Reviewed from this admission Medications and Allergies Allergies Allergy/AdvReac Type Severity Reaction Status Date / Time erythromycin base Allergy Rash Verified 09/05/18 14:03 [Erythromycin Base] Home Medications Medication Instructions Recorded Confirmed Last Taken Type Ferric Citrate (Nf) [Auryxia (Nf)] 630 mg PO TIDWM 09/05/18 09/05/18 Unknown History Furosemide [Lasix] 80 mg PO QDAY PRN 09/05/18 09/05/18 Unknown History Pantoprazole [Protonix TAB] 40 mg PO QDAY 09/05/18 09/05/18 Unknown History Raloxifene HCl [Evista] 60 mg PO QDAY 09/05/18 09/05/18 Unknown History ISOSORBIDE MONOnitrate [Imdur ER] 60 mg PO QDAY tablet 09/07/18 Unknown Rx Insulin Regular, Human [HumuLIN R] 0 unit SQ AC #1 vial 09/07/18 Unknown Rx Labetalol [Normodyne TAB] 200 mg PO QDAY #30 tablet 09/07/18 Unknown Rx Lisinopril [Zestril TAB] 20 mg PO DAILY tablet 09/07/18 Unknown Rx cloNIDine [Catapres] 0.2 mg PO TID #30 tablet 09/07/18 Unknown Rx Active Meds: Active Medications Epoetin Khurram (Procrit) 10,000 unit IV ANTOINETTE PRN PRN Reason: hemodialysis Sodium Chloride (Nacl 0.9%) 100 mls @ 999 mls/hr IV ANTOINETTE PRN PRN Reason: Hypotension Sodium Chloride (Nacl 0.9%) 100 mls @ 999 mls/hr IV ANTOINETTE PRN PRN Reason: Hypotension Exam - Vital Signs Vital signs: Vital Signs Temp Pulse Resp Pulse Ox 98.6 F 89 14 100 09/30/18 12:09 09/30/18 12:09 09/30/18 12:09 09/30/18 12:09 Results - Lab Results 09/30/18 12:24 09/30/18 12:24 Most recent lab results Calcium 8.5 mg/dL (8.4-10.2) 09/30/18 12:24
[2018-09-30] MEDS ORDERED: NON-FORMULARY (Furosemide [Lasix] 80 MG) PO PRN (21:23)
--- NOTE | 2018-09-30 21:23 | History and Physical Report ---
History of Present Illness Date of examination: 09/30/18 Date of admission: 09/30/18 15:33 Chief complaint: Low H/H--sent from HD center History of present illness: Patient is 67 years old female with history of end stage renal disease on hemodialysis, anemia with a recent blood transfusion. Patient sent from dialysis center after patient was found to have a hemoglobin of 5.7. Patient denied any chest pain, shortness of breath, hematemesis, hemoptysis, melena or hematochezia. Patient also denied any fever or chills. Past Medical History Previous Medical History?: Yes Hypertension: Yes Diabetes: Yes GERD: Yes Renal Disease: Yes (HD T,TH,Sat) Additional medical history: anemia Surgical History Past Surgical History?: Yes Additional Surgical History: graft left arm Social History Smoking Status: Never Smoker Substance Use Type: None Family History Htn Review of Systems ROS: Stated complaint: LOW HEMOGLOBIN Other details as noted in HPI Comment: All other systems reviewed and negative Constitutional: denies: chills, fever Respiratory: denies: cough, orthopnea, shortness of breath, SOB with exertion, SOB at rest, wheezing Cardiovascular: denies: chest pain, palpitations Gastrointestinal: denies: abdominal pain, nausea, vomiting, diarrhea, constipation, hematemesis, melena Musculoskeletal: denies: back pain Neurological: denies: headache, weakness, numbness, paresthesias, confusion Medications and Allergies Allergies Allergy/AdvReac Type Severity Reaction Status Date / Time erythromycin base Allergy Rash Verified 09/05/18 14:03 [Erythromycin Base] Home Medications Medication Instructions Recorded Confirmed Last Taken Type Ferric Citrate (Nf) [Auryxia (Nf)] 630 mg PO TIDWM 09/05/18 09/05/18 Unknown His tory Furosemide [Lasix] 80 mg PO QDAY PRN 09/05/18 09/05/18 Unknown History Pantoprazole [Protonix TAB] 40 mg PO QDAY 09/05/18 09/05/18 Unknown History Raloxifene HCl [Evista] 60 mg PO QDAY 09/05/18 09/05/18 Unknown History ISOSORBIDE MONOnitrate [Imdur ER] 60 mg PO QDAY tablet 09/07/18 Unknown Rx Insulin Regular, Human [HumuLIN R] 0 unit SQ AC #1 vial 09/07/18 Unknown Rx Labetalol [Normodyne TAB] 200 mg PO QDAY #30 tablet 09/07/18 Unknown Rx Lisinopril [Zestril TAB] 20 mg PO DAILY tablet 09/07/18 Unknown Rx cloNIDine [Catapres] 0.2 mg PO TID #30 tablet 09/07/18 Unknown Rx Active Meds: Active Medications Epoetin Khurram (Procrit) 10,000 unit IV ANTOINETTE PRN PRN Reason: hemodialysis Last Admin: 09/30/18 18:48 Dose: 10,000 unit Documented by: Sodium Chloride (Nacl 0.9%) 100 mls @ 999 mls/hr IV ANTOINETTE PRN PRN Reason: Hypotension Sodium Chloride (Nacl 0.9%) 100 mls @ 999 mls/hr IV ANTOINETTE PRN PRN Reason: Hypotension Exam - Constitutional Vitals: Temp Pulse Resp BP Pulse Ox 99.3 F 86 22 191/89 100 09/30/18 19:39 09/30/18 20:29 09/30/18 20:49 09/30/18 19:39 09/30/18 15:00 General appearance: Present: no acute distress, well-nourished - EENT Eyes: Present: PERRL ENT: hearing intact, clear oral mucosa - Neck Neck: Present: supple, normal ROM - Respiratory Respiratory effort: normal Respiratory: bilateral: CTA - Cardiovascular Heart rate: 78 Rhythm: regular Heart Sounds: Present: S1 & S2. Absent: rub, click - Extremities Extremities: no ischemia, pulses intact, pulses symmetrical, No edema Peripheral Pulses: within normal limits - Abdominal General gastrointestinal: Present: soft, non-tender, non-distended, normal bowel sounds Female genitourinary: Present: normal - Integumentary Integumentary: Present: clear, warm, dry - Musculoskeletal Musculoskeletal: gait normal, strength equal bilaterally - Psychiatric Psychiatric: appropriate mood/affect, intact judgment & insight - Neurologic Neurologic: CNII-XII intact, moves all extremities - Allied Health Allied health notes reviewed: nursing, case management Results - Labs CBC & Chem 7: 10/01/18 05:30 10/01/18 05:30 Labs: Laboratory Last Values WBC 5.3 K/mm3 (4.5-11.0) 09/30/18 12:24 RBC 2.12 M/mm3 (3.65-5.03) L 09/30/18 12:24 Hgb 5.7 gm/dl (10.1-14.3) L* 09/30/18 12:24 Hct 17.6 % (30.3-42.9) L* 09/30/18 12:24 MCV 83 fl (79-97) 09/30/18 12:24 MCH 27 pg (28-32) L 09/30/18 12:24 MCHC 32 % (30-34) 09/30/18 12:24 RDW 20.6 % (13.2-15.2) H 09/30/18 12:24 Plt Count 349 K/mm3 (140-440) 09/30/18 12:24 Lymph % (Auto) 9.8 % (13.4-35.0) L 09/30/18 12:24 [place] % (Auto) 7.8 % (0.0-7.3) H 09/30/18 12:24 Eos % (Auto) 2.9 % (0.0-4.3) 09/30/18 12:24 Baso % (Auto) 0.5 % (0.0-1.8) 09/30/18 12:24 Lymph # 0.5 K/mm3 (1.2-5.4) L 09/30/18 12:24 [place] # 0.4 K/mm3 (0.0-0.8) 09/30/18 12:24 Eos # 0.2 K/mm3 (0.0-0.4) 09/30/18 12:24 Baso # 0.0 K/mm3 (0.0-0.1) 09/30/18 12:24 Seg Neutrophils % 79.0 % (40.0-70.0) H 09/30/18 12:24 Seg Neutrophils # 4.2 K/mm3 (1.8-7.7) 09/30/18 12:24 Percent Retic 3.33 % (0.78-2.58) H 09/30/18 12:24 PT 14.4 Sec. (12.2-14.9) 09/30/18 12:24 INR 1.05 (0.87-1.13) 09/30/18 12:24 APTT 36.8 Sec. (24.2-36.6) H 09/30/18 12:24 Sodium 139 mmol/L (137-145) 09/30/18 12:24 Potassium 4.4 mmol/L (3.6-5.0) 09/30/18 12:24 Chloride 96.6 mmol/L (98-107) L 09/30/18 12:24 Carbon Dioxide 23 mmol/L (22-30) 09/30/18 12:24 24 mmol/L 09/30/18 12:24 BUN 42 mg/dL (7-17) H 09/30/18 12:24 6.1 mg/dL (0.7-1.2) H 09/30/18 12:24 Estimated GFR 8 ml/min 09/30/18 12:24 7 % 09/30/18 12:24 Glucose 140 mg/dL (65-100) H 09/30/18 12:24 Calcium 8.5 mg/dL (8.4-10.2) 09/30/18 12:24 Iron 20 ug/dL (37-170) L 09/30/18 12:31 TIBC 329 mcg/dL (250-450) 09/30/18 12:31 < 0.20 mg/dL (0.1-1.2) 09/30/18 12:24 < 0.2 mg/dL (0-0.2) 09/30/18 12:24 0.0 mg/dL 09/30/18 12:24 AST 16 units/L (5-40) 09/30/18 12:24 ALT 8 units/L (7-56) 09/30/18 12:24 80 units/L (35-129) 09/30/18 12:24 6.6 g/dL (6.3-8.2) 09/30/18 12:24 3.4 g/dL (3.9-5) L 09/30/18 12:24 1.1 % 09/30/18 12:24 Vitamin B12 > 2000 pg/mL (211-911) H 09/30/18 12:31 Hepatitis A IgM Ab Non-reactive (NonReactive) 09/30/18 17:09 Hep Bs Antigen Non-reactive (Negative) 09/30/18 17:09 Hep B Core IgM Ab Non-reactive (NonReactive) 09/30/18 17:09 Non-reactive (NonReactive) 09/30/18 17:09 Blood Type O POSITIVE 09/30/18 12:24 Antibody Screen Negative 09/30/18 12:24 Crossmatch See Detail 09/30/18 12:24 Short CBC 09/30/18 09/30/18 10/01/18 Range/Units 12:24 21:48 05:30 WBC 5.3 6.0 (4.5-11.0) K/mm3 Hgb 5.7 L* 9.4 L D 8.4 L (10.1-14.3) gm/dl Hct 17.6 L* 28.2 L D 25.2 L (30.3-42.9) % Plt Count 349 302 (140-440) K/mm3 BMP 09/30/18 10/01/18 12:24 05:30 Sodium 139 141 Potassium 4.4 3.3 L D Chloride 96.6 L 98.3 Carbon Dioxide 23 28 BUN 42 H 13 Creatinine 6.1 H 3.1 H Glucose 140 H 166 H Calcium 8.5 8.4 Liver Function 09/30/18 10/01/18 Range/Units 12:24 05:30 Total Bilirubin < 0.20 0.30 (0.1-1.2) mg/dL Direct Bilirubin < 0.2 (0-0.2) mg/dL AST 16 14 (5-40) units/L ALT 8 7 (7-56) units/L Alkaline Phosphatase 80 81 (35-129) units/L Albumin 3.4 L 3.1 L (3.9-5) g/dL - Imaging and Cardiology EKG: report reviewed (NSR 89/minAPC's) Assessment and Plan Advance Directives: Yes (FC) VTE prophylaxis?: Chemical Plan of care discussed with patient/family: Yes - Patient Problems (1) Acute anemia Current Visit: Yes Status: Acute Plan to address problem: To be transfused 1 to 2 units of PRBC Then discharge if Hb above 7.5 iron levels ordered (2) ESRD on hemodialysis Onset Date: 09/23/14 Current Visit: Yes Status: Chronic Plan to address problem: Cont HD (3) HTN (hypertension) Current Visit: Yes Status: Chronic Qualifiers: Hypertension type: essential hypertension Qualified Code(s): I10 - Essential (primary) hypertension Plan to address problem: Cont antihypertensives (4) IDDM (insulin dependent diabetes mellitus) Current Visit: Yes Status: Chronic Plan to address problem: Cont Insulin and coverage (5) GERD (gastroesophageal reflux disease) Current Visit: Yes Status: Chronic Qualifiers: Esophagitis presence: without esophagitis Qualified Code(s): K21.9 - Gastro-esophageal reflux disease without esophagitis Plan to address problem: On Protonix (6) DVT prophylaxis Current Visit: Yes Status: Acute Plan to address problem: On Heparin and GI prophylaxis
[2018-09-30] MEDS ORDERED: TYLENOL PO PRN (21:25)
[2018-09-30] MEDS ORDERED: ZOFRAN IV PRN (21:25)
[2018-09-30] MEDS ORDERED: MORPHINE IV PRN (21:25)
[2018-09-30] MEDS ORDERED: SODIUM CHLORIDE FLUSH SYRINGE 10 ML IV PRN (21:25)
[2018-09-30] MEDS ORDERED: PERCOCET 5/325 PO PRN (21:25)
[2018-09-30] MEDS ORDERED: FERRIC CITRATE 630 MG PO SCH (21:30)
[2018-09-30] MEDS ORDERED: RALOXIFENE HCL 60 MG PO SCH (21:30)
[2018-09-30] MEDS ORDERED: LASIX PO PRN (21:33)
[2018-09-30] MEDS ORDERED: PEPCID PO SCH (22:00)
[2018-09-30] MEDS: SODIUM CHLORIDE FLUSH SYRINGE 10 ML IV SCH (22:00)
[2018-09-30 22:06] LABS: Hematocrit 28.2 % (30.3-42.9); Hemoglobin 9.4 gm/dl (10.1-14.3)
[2018-09-30] MEDS: PROTONIX PO SCH (22:50)
[2018-09-30] MEDS: IMDUR PO SCH (22:50)
[2018-09-30] MEDS: NORMODYNE PO SCH (22:50)
[2018-10-01] MEDS: ZESTRIL PO SCH ×3 (00:26→11:41)
[2018-10-01 06:11] LABS: Basophils % (Auto) 0.5 % (0.0-1.8); Eosinophils # (Auto) 0.1 K/mm3 (0.0-0.4); Eosinophils % (Auto) 1.8 % (0.0-4.3); Hematocrit 25.2 % (30.3-42.9); Hemoglobin 8.4 gm/dl (10.1-14.3); Lymphocytes # (Auto) 0.4 K/mm3 (1.2-5.4); Lymphocytes % (Auto) 6.4 % (13.4-35.0); Mean Corpuscular HGB Conc 33 % (30-34); Mean Corpuscular Volume 85 fl (79-97); Monocytes # (Auto) 0.6 K/mm3 (0.0-0.8); Platelet Count 302 K/mm3 (140-440); Red Blood Count 2.98 M/mm3 (3.65-5.03); Red Cell Distribution Width 18.4 % (13.2-15.2)
[2018-10-01 06:35] LABS: Albumin 3.1 g/dL (3.9-5); Calcium 8.4 mg/dL (8.4-10.2)
[2018-10-01] MEDS: NORMODYNE PO SCH ×2 (10:05→10:12)
[2018-10-01] MEDS: CATAPRES PO SCH ×4 (10:05→22:52)
[2018-10-01] MEDS: IMDUR PO SCH ×2 (10:05→10:12)
[2018-10-01] MEDS: PROTONIX PO SCH (10:06)
[2018-10-01] MEDS: SODIUM CHLORIDE FLUSH SYRINGE 10 ML IV SCH ×2 (10:06→22:39)
[2018-10-01] MEDS: HumaLOG SUB-Q SCH ×4 (10:10→22:38)
[2018-10-01 10:18] LABS: % Iron Saturation 5.5 %
[2018-10-01] MEDS ORDERED: DULCOLAX PR PRN (11:50)
--- NOTE | 2018-10-01 11:55 | Progress Note ---
Subjective Interval history: Patient was seen today for follow-up of multiple renal related issues No complaints of any chest pain pressure or shortness of breath she received her hemodialysis yesterday Status post packed red blood cell transfusion Interdisciplinary notes that also reviewed Events of 24 hours vitals labs intake output medications were reviewed Past medical history: Reviewed Family history: Reviewed Social history: Reviewed Allergies: Reviewed Physical examination: Vitals: Reviewed HEENT: No pallor or icterus oral mucosa moist Neck: Supple no JVD no thyromegaly Chest: Bilateral clear to auscultation anteriorly Heart: Regular rate and rhythm S1-S2 heard no S3-S4 Abdomen: Soft nontender no voluntary guarding rigidity rebound Extremity: Dry skin less than 1+ peripheral edema Psychiatric: No evidence of agitation and aggression noted Dermatology: No petechial rashes Labs and x-rays: Reviewed from today Assessment and plan End-stage renal disease: Patient is currently on hemodialysis, and will need to continue with hemodialysis on Tuesday, schedule. Anemia and end-stage renal disease: Monitor hemoglobin and hematocrit erythropoietin as needed. we will give iron infusion received packed red blood cell Secondary hyperparathyroidism: Check phosphorus and PTH level periodically, binders as needed Dialysis access: Currently working well volume overload adequately counseled and educated Will need complete workup for anemia Malnutrition risk: High consider high-protein diet dietitian evaluation and follow-up in general 1.5 g protein per KG body weight Fluid restriction: 1200 cc per day not to exceed more than that Adequately counseled and educated about other hospital related issues as well Labs were discussed with patient and simple [place] Patient does appear to have good understanding of all the dialysis related issues Patient was adequately counseled and educated regarding all the renal related issues Laboratory studies, pertinent for discussed with patient All questions were answered and simple [place]adian We'll continue to follow and make recommendation for renal standpoint Objective - Vital Signs Vital signs: Vital Signs - 12hr 10/01/18 10/01/18 10/01/18 04:04 07:25 08:00 Temperature 98.0 F Pulse Rate 77 Respiratory 18 18 Rate Blood Pressure 96/44 O2 Sat by Pulse 97 Oximetry 10/01/18 08:22 Temperature 98.7 F Pulse Rate 75 Respiratory 16 Rate Blood Pressure 96/47 O2 Sat by Pulse 100 Oximetry - Lab 10/01/18 05:30 10/01/18 05:30 Most recent lab results Calcium 8.4 mg/dL (8.4-10.2) 10/01/18 05:30 Medications & Allergies - Medications Allergies/Adverse Reactions: Allergies erythromycin base [Erythromycin Base] Allergy (Verified 09/05/18 14:03) Rash PATIENT ASK ME TO REMOVEDMED ON ALLERGY LIST. Home Medications: Home Medications Medication Instructions Recorded Confirmed Last Taken Type Ferric Citrate (Nf) [Auryxia (Nf)] 630 mg PO TIDWM 09/05/18 09/05/18 Unknown History Furosemide [Lasix] 80 mg PO QDAY PRN 09/05/18 09/05/18 Unknown History Pantoprazole [Protonix TAB] 40 mg PO QDAY 09/05/18 09/05/18 Unknown History Raloxifene HCl [Evista] 60 mg PO QDAY 09/05/18 09/05/18 Unknown History ISOSORBIDE MONOnitrate [Imdur ER] 60 mg PO QDAY tablet 09/07/18 Unknown Rx Insulin Regular, Human [HumuLIN R] 0 unit SQ AC #1 vial 09/07/18 Unknown Rx Labetalol [Normodyne TAB] 200 mg PO QDAY #30 tablet 09/07/18 Unknown Rx Lisinopril [Zestril TAB] 20 mg PO DAILY tablet 09/07/18 Unknown Rx cloNIDine [Catapres] 0.2 mg PO TID #30 tablet 09/07/18 Unknown Rx Active Medications: Generic Name Dose Route Start Last Admin Trade Name Freq PRN Reason Stop Dose Admin Acetaminophen 650 mg 09/30/18 21:25 Tylenol PO Q4H PRN Pain MILD(1-3)/Fever >100.5/PEREZ Bisacodyl 10 mg 10/01/18 11:50 Dulcolax OR QDAY PRN Constipation Clonidine HCl 0.2 mg 10/01/18 08:00 10/01/18 10:11 Catapres PO Not Given TID CALIXTO Epoetin Khurram 10,000 unit 09/30/18 17:19 09/30/18 18:48 Procrit IV 10,000 unit ANTOINETTE PRN Administration hemodialysis Furosemide 80 mg 09/30/18 21:33 Lasix PO DAILY PRN Swelling Sodium Chloride 100 mls @ 999 mls/hr 09/30/18 14:23 Nacl 0.9% IV ANTOINETTE PRN Hypotension Sodium Chloride 100 mls @ 999 mls/hr 09/30/18 17:19 Nacl 0.9% IV ANTOINETTE PRN Hypotension Insulin Human Lispro 0 unit 10/01/18 07:30 10/01/18 10:10 Humalog SUB-Q 2 unit ACHS CALIXTO Administration Protocol Isosorbide Mononitrate 60 mg 09/30/18 22:00 10/01/18 10:12 Imdur PO Not Given QDAY [facility] Labetalol HCl 200 mg 09/30/18 22:00 10/01/18 10:12 Normodyne PO Not Given QDAY [facility] Lisinopril 20 mg 09/30/18 22:00 10/01/18 11:41 Zestril PO Not Given DAILY [facility] Miscellaneous Medication 630 mg 09/30/18 21:30 Ferric Citrate PO QDAY [facility] Miscellaneous Medication 60 mg 09/30/18 21:30 Raloxifene Hcl [Evista] PO QDAY [facility] Morphine Sulfate 2 mg 09/30/18 21:25 Morphine IV Q4H PRN Pain, Moderate (4-6) Ondansetron HCl 4 mg 09/30/18 21:25 Zofran IV Q8H PRN Nausea And Vomiting Oxycodone/Acetaminophen 1 tab 09/30/18 21:25 Percocet 5/325 PO Q6H PRN Pain, Moderate (4-6) Pantoprazole Sodium 40 mg 09/30/18 22:00 10/01/18 10:06 Protonix PO 40 mg QDAY [facility] Administration Sodium Chloride 10 ml 09/30/18 22:00 10/01/18 10:06 Sodium Chloride Flush Syringe 10 Ml IV 10 ml BID CALIXTO Administration Sodium Chloride 10 ml 09/30/18 21:25 Sodium Chloride Flush Syringe 10 Ml IV PRN PRN LINE FLUSH
[2018-10-01] MEDS ORDERED: FERRLECIT 250 MG in NACL 0.9% 100 ML IV ONE ×2 (11:56→20:00)
--- NOTE | 2018-10-01 13:04 | Progress Note ---
Assessment and Plan Assessment and plan: Patient is a 67 yo woman with a history ESRD on HD on TTS, anemia who presented to [facility] with hemoglobin 5.7. She was just discharged from here on 09/08/18 for same thing. 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 Follow-up on current diagnosis of anemia without abd pains or rectal bleeding. No overnight events reported to me. Patient denies any chest pain, shortness breath, nausea/vomiting or severe headaches. Imaging, nursing note, chart, labs and old chart reviewed. Discussed with patient. Hospitalist Physical - Physical exam Narrative exam: Gen: thin frail, chronic disable appearing, NAD, Awake, Alert, Orientated HEENT: NCAT, EOMI, PERRL, OP Clear Neck: supple, no adenopathy, no thyromegaly, no JVD CVS/Heart: RRR, normal S1S2, pulses present bilaterally Chest/Lungs: CTA B, Symmetrical chest expansion, good air entry bilaterally GI/Abdomen: soft, NTND, good bowel sounds, no guarding or rebound /Bladder: no suprapubic tenderness, no CVA or paraspinal tenderness Extermity/Skin: no c/c/e, obvious rash/eczemioid type on left hand, LUE graft MSK: FROM x 4 Neuro: CN 2-12 grossly intact, no new focal deficits Psych: calm - Constitutional Vitals: Temp Pulse Resp BP Pulse Ox 98.7 F 75 16 96/47 100 10/01/18 08:22 10/01/18 08:22 10/01/18 08:22 10/01/18 08:22 10/01/18 08:22 General appearance: Present: no acute distress, well-nourished Results - Labs CBC & Chem 7: 10/01/18 05:30 10/01/18 05:30 Labs: Laboratory Last Values WBC 6.0 K/mm3 (4.5-11.0) 10/01/18 05:30 RBC 2.98 M/mm3 (3.65-5.03) L 10/01/18 05:30 Hgb 8.4 gm/dl (10.1-14.3) L 10/01/18 05:30 Hct 25.2 % (30.3-42.9) L 10/01/18 05:30 MCV 85 fl (79-97) 10/01/18 05:30 MCH 28 pg (28-32) 10/01/18 05:30 MCHC 33 % (30-34) 10/01/18 05:30 RDW 18.4 % (13.2-15.2) H 10/01/18 05:30 Plt Count 302 K/mm3 (140-440) 10/01/18 05:30 Lymph % (Auto) 6.4 % (13.4-35.0) L 10/01/18 05:30 [place] % (Auto) 10.0 % (0.0-7.3) H 10/01/18 05:30 Eos % (Auto) 1.8 % (0.0-4.3) 10/01/18 05:30 Baso % (Auto) 0.5 % (0.0-1.8) 10/01/18 05:30 Lymph # 0.4 K/mm3 (1.2-5.4) L 10/01/18 05:30 [place] # 0.6 K/mm3 (0.0-0.8) 10/01/18 05:30 Eos # 0.1 K/mm3 (0.0-0.4) 10/01/18 05:30 Baso # 0.0 K/mm3 (0.0-0.1) 10/01/18 05:30 Seg Neutrophils % 81.3 % (40.0-70.0) H 10/01/18 05:30 Seg Neutrophils # 4.9 K/mm3 (1.8-7.7) 10/01/18 05:30 Percent Retic 3.33 % (0.78-2.58) H 09/30/18 12:24 PT 14.4 Sec. (12.2-14.9) 09/30/18 12:24 INR 1.05 (0.87-1.13) 09/30/18 12:24 APTT 36.8 Sec. (24.2-36.6) H 09/30/18 12:24 Sodium 141 mmol/L (137-145) 10/01/18 05:30 Potassium 3.3 mmol/L (3.6-5.0) L D 10/01/18 05:30 Chloride 98.3 mmol/L (98-107) 10/01/18 05:30 Carbon Dioxide 28 mmol/L (22-30) 10/01/18 05:30 18 mmol/L 10/01/18 05:30 BUN 13 mg/dL (7-17) 10/01/18 05:30 3.1 mg/dL (0.7-1.2) H 10/01/18 05:30 Estimated GFR 18 ml/min 10/01/18 05:30 4 % 10/01/18 05:30 Glucose 166 mg/dL (65-100) H 10/01/18 05:30 POC Glucose 196 (70-105) H 10/01/18 11:48 5.5 % (4-6) 09/30/18 21:48 Calcium 8.4 mg/dL (8.4-10.2) 10/01/18 05:30 Iron 16 ug/dL (37-170) L 10/01/18 08:49 TIBC 291 mcg/dL (250-450) 10/01/18 08:49 % Saturation 5.50 % 10/01/18 08:49 266 mg/dl (192-382) 10/01/18 08:49 0.30 mg/dL (0.1-1.2) 10/01/18 05:30 < 0.2 mg/dL (0-0.2) 09/30/18 12:24 0.0 mg/dL 09/30/18 12:24 AST 14 units/L (5-40) 10/01/18 05:30 ALT 7 units/L (7-56) 10/01/18 05:30 81 units/L (35-129) 10/01/18 05:30 5.9 g/dL (6.3-8.2) L 10/01/18 05:30 3.1 g/dL (3.9-5) L 10/01/18 05:30 1.1 % 10/01/18 05:30 Vitamin B12 > 2000 pg/mL (211-911) H 10/01/18 08:49 Hepatitis A IgM Ab Non-reactive (NonReactive) 09/30/18 17:09 Hep Bs Antigen Non-reactive (Negative) 09/30/18 17:09 Hep B Core IgM Ab Non-reactive (NonReactive) 09/30/18 17:09 Non-reactive (NonReactive) 09/30/18 17:09 Blood Type O POSITIVE 09/30/18 12:24 Antibody Screen Negative 09/30/18 12:24 Crossmatch See Detail 09/30/18 12:24 Active Medications - Current Medications Current Medications: Generic Name Dose Route Start Last Admin Trade Name Freq PRN Reason Stop Dose Admin Acetaminophen 650 mg 09/30/18 21:25 Tylenol PO Q4H PRN Pain MILD(1-3)/Fever >100.5/PEREZ Bisacodyl 10 mg 10/01/18 11:50 Dulcolax NM QDAY PRN Constipation Clonidine HCl 0.2 mg 10/01/18 08:00 10/01/18 10:11 Catapres PO Not Given TID [facility] Epoetin Khurram 10,000 unit 09/30/18 17:19 09/30/18 18:48 Procrit IV 10,000 unit ANTOINETTE PRN Administration hemodialysis Furosemide 80 mg 09/30/18 21:33 Lasix PO DAILY PRN Swelling Sodium Chloride 100 mls @ 999 mls/hr 09/30/18 14:23 Nacl 0.9% IV ANTOINETTE PRN Hypotension Sodium Chloride 100 mls @ 999 mls/hr 09/30/18 17:19 Nacl 0.9% IV ANTOINETTE PRN Hypotension Ferric Sodium Gluconate 120 mls @ 100 mls/hr 10/01/18 11:56 Complex 250 mg/ Sodium IV 10/01/18 13:01 Chloride ONCE ONE Insulin Human Lispro 0 unit 10/01/18 07:30 10/01/18 12:26 Humalog SUB-Q 2 unit ACHS CALIXTO Administration Protocol Isosorbide Mononitrate 60 mg 09/30/18 22:00 10/01/18 10:12 Imdur PO Not Given QDAY [facility] Labetalol HCl 200 mg 09/30/18 22:00 10/01/18 10:12 Normodyne PO Not Given QDAY [facility] Lisinopril 20 mg 09/30/18 22:00 10/01/18 11:41 Zestril PO Not Given DAILY [facility] Miscellaneous Medication 630 mg 09/30/18 21:30 Ferric Citrate PO QDAY [facility] Miscellaneous Medication 60 mg 09/30/18 21:30 Raloxifene Hcl [Evista] PO QDAY [facility] Morphine Sulfate 2 mg 09/30/18 21:25 Morphine IV Q4H PRN Pain, Moderate (4-6) Ondansetron HCl 4 mg 09/30/18 21:25 Zofran IV Q8H PRN Nausea And Vomiting Oxycodone/Acetaminophen 1 tab 09/30/18 21:25 Percocet 5/325 PO Q6H PRN Pain, Moderate (4-6) Pantoprazole Sodium 40 mg 09/30/18 22:00 10/01/18 10:06 Protonix PO 40 mg QDAY [facility] Administration Sodium Chloride 10 ml 09/30/18 22:00 10/01/18 10:06 Sodium Chloride Flush Syringe 10 Ml IV 10 ml BID [facility] Administration Sodium Chloride 10 ml 09/30/18 21:25 Sodium Chloride Flush Syringe 10 Ml IV PRN PRN LINE FLUSH
--- NOTE | 2018-10-01 14:22 | Event Note ---
Date: 10/01/18 consult for severe anemia, no overt bleeding. Will see patient in AM to eval for poss EGD/Colon. Will put patient in for clear liquid diet for tomorrow so that if need to do colonoscopy can perform on .
[2018-10-02] MEDS: IMDUR PO SCH (09:13)
[2018-10-02] MEDS: NORMODYNE PO SCH (09:13)
[2018-10-02] MEDS: PROTONIX PO SCH (09:14)
[2018-10-02] MEDS: CATAPRES PO SCH ×3 (09:14→21:56)
[2018-10-02] MEDS: SODIUM CHLORIDE FLUSH SYRINGE 10 ML IV SCH ×2 (09:15→21:56)
--- NOTE | 2018-10-02 09:18 | Progress Note ---
Subjective Interval history: Patient was seen today for follow-up of multiple renal related issues no acute complaints Events of 24 hours vitals labs intake output medications were reviewed Past medical history: Reviewed Family history: Reviewed Social history: Reviewed Allergies: Reviewed Physical examination: Vitals: Reviewed HEENT: No pallor or icterus oral mucosa moist Neck: Supple no JVD no thyromegaly Chest: Bilateral clear to auscultation anteriorly Heart: Regular rate and rhythm S1-S2 heard no S3-S4 Abdomen: Soft nontender no voluntary guarding rigidity rebound Extremity: Dry skin less than 1+ peripheral edema Psychiatric: No evidence of agitation and aggression noted Dermatology: No petechial rashes Labs and x-rays: Reviewed from today Assessment and plan End-stage renal disease: Patient is currently on hemodialysis, and will need to continue with hemodialysis on Tuesday , schedule. Anemia and end-stage renal disease: Monitor hemoglobin and hematocrit erythropoietin with hemodialysis, periodically give iron Severe iron deficiency anemia pending EGD and colonoscopy, Secondary hyperparathyroidism: Check phosphorus and PTH level periodically, binders as needed Dialysis access: Currently working well Malnutrition risk: High consider high-protein diet dietitian evaluation and follow-up in general 1.5 g protein per KG body weight Fluid restriction: 1200 cc per day not to exceed more than that Adequately counseled and educated about other hospital related issues as well Labs were discussed with patient and simple [place] Patient does appear to have good understanding of all the dialysis related issues We'll continue to follow and make recommendation for renal standpoint Objective - Vital Signs Vital signs: Vital Signs - 12hr 10/01/18 10/01/18 10/02/18 22:52 23:53 04:08 Temperature 98.0 F 98.0 F Pulse Rate 91 H 86 Respiratory 18 18 Rate Blood Pressure 126/60 125/57 123/57 O2 Sat by Pulse 98 Oximetry 10/02/18 10/02/18 10/02/18 09:12 09:13 09:14 Temperature 97.9 F Pulse Rate 77 76 76 Respiratory 18 Rate Blood Pressure 130/46 130/46 130/46 O2 Sat by Pulse 100 Oximetry - Lab 10/01/18 05:30 10/01/18 05:30 Most recent lab results Calcium 8.4 mg/dL (8.4-10.2) 10/01/18 05:30 Medications & Allergies - Medications Allergies/Adverse Reactions: Allergies erythromycin base [Erythromycin Base] Allergy (Verified 09/05/18 14:03) Rash PATIENT ASK ME TO REMOVEDMED ON ALLERGY LIST. Home Medications: Home Medications Medication Instructions Recorded Confirmed Last Taken Type Ferric Citrate (Nf) [Auryxia (Nf)] 630 mg PO TIDWM 09/05/18 09/05/18 Unknown History Furosemide [Lasix] 80 mg PO QDAY PRN 09/05/18 09/05/18 Unknown History Pantoprazole [Protonix TAB] 40 mg PO QDAY 09/05/18 09/05/18 Unknown History Raloxifene HCl [Evista] 60 mg PO QDAY 09/05/18 09/05/18 Unknown History ISOSORBIDE MONOnitrate [Imdur ER] 60 mg PO QDAY tablet 09/07/18 Unknown Rx Insulin Regular, Human [HumuLIN R] 0 unit SQ AC #1 vial 09/07/18 Unknown Rx Labetalol [Normodyne TAB] 200 mg PO QDAY #30 tablet 09/07/18 Unknown Rx Lisinopril [Zestril TAB] 20 mg PO DAILY tablet 09/07/18 Unknown Rx cloNIDine [Catapres] 0.2 mg PO TID #30 tablet 09/07/18 Unknown Rx Active Medications: Generic Name Dose Route Start Last Admin Trade Name Freq PRN Reason Stop Dose Admin Acetaminophen 650 mg 09/30/18 21:25 Tylenol PO Q4H PRN Pain MILD(1-3)/Fever >100.5/PEREZ Bisacodyl 10 mg 10/01/18 11:50 Dulcolax [place] QDAY PRN Constipation Clonidine HCl 0.2 mg 10/01/18 08:00 10/02/18 09:14 Catapres PO 0.2 mg TID [facility] Administration Epoetin Khurram 10,000 unit 09/30/18 17:19 09/30/18 18:48 Procrit IV 10,000 unit ANTOINETTE PRN Administration hemodialysis Furosemide 80 mg 09/30/18 21:33 Lasix PO DAILY PRN Swelling Sodium Chloride 100 mls @ 999 mls/hr 09/30/18 14:23 Nacl 0.9% IV ANTOINETTE PRN Hypotension Sodium Chloride 100 mls @ 999 mls/hr 09/30/18 17:19 Nacl 0.9% IV NATOINETTE PRN Hypotension Insulin Human Lispro 0 unit 10/01/18 07:30 10/01/18 22:38 Humalog SUB-Q 3 unit ACHS CALIXTO Administration Protocol Isosorbide Mononitrate 60 mg 09/30/18 22:00 10/02/18 09:13 Imdur PO 60 mg QDAY [facility] Administration Labetalol HCl 200 mg 09/30/18 22:00 10/02/18 09:13 Normodyne PO 200 mg QDAY [facility] Administration Lisinopril 20 mg 09/30/18 22:00 10/01/18 11:41 Zestril PO Not Given DAILY [facility] Miscellaneous Medication 630 mg 09/30/18 21:30 Ferric Citrate PO QDAY [facility] Miscellaneous Medication 60 mg 09/30/18 21:30 Raloxifene Hcl [Evista] PO QDAY [facility] Morphine Sulfate 2 mg 09/30/18 21:25 Morphine IV Q4H PRN Pain, Moderate (4-6) Ondansetron HCl 4 mg 09/30/18 21:25 Zofran IV Q8H PRN Nausea And Vomiting Oxycodone/Acetaminophen 1 tab 09/30/18 21:25 Percocet 5/325 PO Q6H PRN Pain, Moderate (4-6) Pantoprazole Sodium 40 mg 09/30/18 22:00 10/02/18 09:14 Protonix PO 40 mg QDAY [facility] Administration Sodium Chloride 10 ml 09/30/18 22:00 10/02/18 09:15 Sodium Chloride Flush Syringe 10 Ml IV 10 ml BID [facility] Administration Sodium Chloride 10 ml 09/30/18 21:25 Sodium Chloride Flush Syringe 10 Ml IV PRN PRN LINE FLUSH
[2018-10-02] MEDS: ZESTRIL PO SCH (09:20)
[2018-10-02] MEDS: HumaLOG SUB-Q SCH ×4 (09:22→21:30)
--- NOTE | 2018-10-02 12:00 | Progress Note ---
Assessment and Plan Assessment and plan: Patient is a 67 yo woman with a history ESRD on HD on TTS, anemia who presented to [facility] with hemoglobin 5.7. She was just discharged from here on 09/08/18 for same thing. 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 Follow-up on current diagnosis of anemia without abd pains or rectal bleeding. No overnight events reported to me. Patient denies any chest pain, shortness breath, nausea/vomiting or severe headaches. Imaging, nursing note, chart, labs and old chart reviewed. Discussed with patient. Hospitalist Physical - Physical exam Narrative exam: Gen: thin frail, chronic disable appearing, NAD, Awake, Alert, Orientated HEENT: NCAT, EOMI, PERRL, OP Clear Neck: supple, no adenopathy, no thyromegaly, no JVD CVS/Heart: RRR, normal S1S2, pulses present bilaterally Chest/Lungs: CTA B, Symmetrical chest expansion, good air entry bilaterally GI/Abdomen: soft, NTND, good bowel sounds, no guarding or rebound /Bladder: no suprapubic tenderness, no CVA or paraspinal tenderness Extermity/Skin: no c/c/e, obvious rash/eczemioid type on left hand, LUE graft MSK: FROM x 4 Neuro: CN 2-12 grossly intact, no new focal deficits Psych: calm - Constitutional Vitals: Temp Pulse Resp BP Pulse Ox 97.9 F 85 18 93/46 100 10/02/18 10:54 10/02/18 10:54 10/02/18 10:54 10/02/18 10:54 10/02/18 10:54 General appearance: Present: no acute distress, well-nourished Results - Labs CBC & Chem 7: 10/01/18 05:30 10/01/18 05:30 Labs: Laboratory Last Values WBC 6.0 K/mm3 (4.5-11.0) 10/01/18 05:30 RBC 2.98 M/mm3 (3.65-5.03) L 10/01/18 05:30 Hgb 8.4 gm/dl (10.1-14.3) L 10/01/18 05:30 Hct 25.2 % (30.3-42.9) L 10/01/18 05:30 MCV 85 fl (79-97) 10/01/18 05:30 MCH 28 pg (28-32) 10/01/18 05:30 MCHC 33 % (30-34) 10/01/18 05:30 RDW 18.4 % (13.2-15.2) H 10/01/18 05:30 Plt Count 302 K/mm3 (140-440) 10/01/18 05:30 Lymph % (Auto) 6.4 % (13.4-35.0) L 10/01/18 05:30 [place] % (Auto) 10.0 % (0.0-7.3) H 10/01/18 05:30 Eos % (Auto) 1.8 % (0.0-4.3) 10/01/18 05:30 Baso % (Auto) 0.5 % (0.0-1.8) 10/01/18 05:30 Lymph # 0.4 K/mm3 (1.2-5.4) L 10/01/18 05:30 [place] # 0.6 K/mm3 (0.0-0.8) 10/01/18 05:30 Eos # 0.1 K/mm3 (0.0-0.4) 10/01/18 05:30 Baso # 0.0 K/mm3 (0.0-0.1) 10/01/18 05:30 Seg Neutrophils % 81.3 % (40.0-70.0) H 10/01/18 05:30 Seg Neutrophils # 4.9 K/mm3 (1.8-7.7) 10/01/18 05:30 Percent Retic 3.33 % (0.78-2.58) H 09/30/18 12:24 PT 14.4 Sec. (12.2-14.9) 09/30/18 12:24 INR 1.05 (0.87-1.13) 09/30/18 12:24 APTT 36.8 Sec. (24.2-36.6) H 09/30/18 12:24 Sodium 141 mmol/L (137-145) 10/01/18 05:30 Potassium 3.3 mmol/L (3.6-5.0) L D 10/01/18 05:30 Chloride 98.3 mmol/L (98-107) 10/01/18 05:30 Carbon Dioxide 28 mmol/L (22-30) 10/01/18 05:30 18 mmol/L 10/01/18 05:30 BUN 13 mg/dL (7-17) 10/01/18 05:30 3.1 mg/dL (0.7-1.2) H 10/01/18 05:30 Estimated GFR 18 ml/min 10/01/18 05:30 4 % 10/01/18 05:30 Glucose 166 mg/dL (65-100) H 10/01/18 05:30 POC Glucose 211 (70-105) H 10/02/18 08:15 5.5 % (4-6) 09/30/18 21:48 Calcium 8.4 mg/dL (8.4-10.2) 10/01/18 05:30 Iron 16 ug/dL (37-170) L 10/01/18 08:49 TIBC 291 mcg/dL (250-450) 10/01/18 08:49 % Saturation 5.50 % 10/01/18 08:49 266 mg/dl (192-382) 10/01/18 08:49 0.30 mg/dL (0.1-1.2) 10/01/18 05:30 < 0.2 mg/dL (0-0.2) 09/30/18 12:24 0.0 mg/dL 09/30/18 12:24 AST 14 units/L (5-40) 10/01/18 05:30 ALT 7 units/L (7-56) 10/01/18 05:30 81 units/L (35-129) 10/01/18 05:30 5.9 g/dL (6.3-8.2) L 10/01/18 05:30 3.1 g/dL (3.9-5) L 10/01/18 05:30 1.1 % 10/01/18 05:30 Vitamin B12 > 2000 pg/mL (211-911) H 10/01/18 08:49 Hepatitis A IgM Ab Non-reactive (NonReactive) 09/30/18 17:09 Hep Bs Antigen Non-reactive (Negative) 09/30/18 17:09 Hep B Core IgM Ab Non-reactive (NonReactive) 09/30/18 17:09 Non-reactive (NonReactive) 09/30/18 17:09 Blood Type O POSITIVE 09/30/18 12:24 Antibody Screen Negative 09/30/18 12:24 Crossmatch See Detail 09/30/18 12:24 Active Medications - Current Medications Current Medications: Generic Name Dose Route Start Last Admin Trade Name Freq PRN Reason Stop Dose Admin Acetaminophen 650 mg 09/30/18 21:25 Tylenol PO Q4H PRN Pain MILD(1-3)/Fever >100.5/PEREZ Bisacodyl 10 mg 10/01/18 11:50 Dulcolax [place] QDAY PRN Constipation Clonidine HCl 0.2 mg 10/01/18 08:00 10/02/18 09:14 Catapres PO 0.2 mg TID [facility] Administration Epoetin Khurram 10,000 unit 09/30/18 17:19 09/30/18 18:48 Procrit IV 10,000 unit ANTOINETTE PRN Administration hemodialysis Furosemide 80 mg 09/30/18 21:33 Lasix PO DAILY PRN Swelling Sodium Chloride 100 mls @ 999 mls/hr 09/30/18 14:23 Nacl 0.9% IV ANTOINETTE PRN Hypotension Sodium Chloride 100 mls @ 999 mls/hr 09/30/18 17:19 Nacl 0.9% IV ANTOINETTE PRN Hypotension Insulin Human Lispro 0 unit 10/01/18 07:30 10/02/18 09:22 Humalog SUB-Q 3 unit ACHS CALIXTO Administration Protocol Isosorbide Mononitrate 60 mg 09/30/18 22:00 10/02/18 09:13 Imdur PO 60 mg QDAY [facility] Administration Labetalol HCl 200 mg 09/30/18 22:00 10/02/18 09:13 Normodyne PO 200 mg QDAY [facility] Administration Lisinopril 20 mg 09/30/18 22:00 10/02/18 09:20 Zestril PO 20 mg DAILY [facility] Administration Miscellaneous Medication 630 mg 09/30/18 21:30 Ferric Citrate PO QDAY [facility] Miscellaneous Medication 60 mg 09/30/18 21:30 Raloxifene Hcl [Evista] PO QDAY [facility] Morphine Sulfate 2 mg 09/30/18 21:25 Morphine IV Q4H PRN Pain, Moderate (4-6) Ondansetron HCl 4 mg 09/30/18 21:25 Zofran IV Q8H PRN Nausea And Vomiting Oxycodone/Acetaminophen 1 tab 09/30/18 21:25 Percocet 5/325 PO Q6H PRN Pain, Moderate (4-6) Pantoprazole Sodium 40 mg 09/30/18 22:00 10/02/18 09:14 Protonix PO 40 mg QDAY [facility] Administration Sodium Chloride 10 ml 09/30/18 22:00 10/02/18 09:15 Sodium Chloride Flush Syringe 10 Ml IV 10 ml BID [facility] Administration Sodium Chloride 10 ml 09/30/18 21:25 Sodium Chloride Flush Syringe 10 Ml IV PRN PRN LINE FLUSH
--- NOTE | 2018-10-02 13:25 | Gastroenterology Consultation ---
<RUTH SERRANO - Last Filed: 10/02/18 13:45> History of Present Illness - Reason for Consult Consult date: 10/02/18 anemia Requesting physician: CURTIS PATEL - History of Present Illness Patient is a 67 y/o female with PMH of DM, HTN, chronic anemia, and ESRD on HD who was admitted for anemia to which GI has been consulted. Patient is p reviously known to our service from prior consults for GI bleeding 2/2 PUD in 2014 and lastly in 08/2017 for anemia with black stool with undergoing a repeat EGD and colonoscopy at that time that showed erosive gastritis, duodenitis, and black liquid stool throughout the colon/poor prep but no gross lesions. Recommendations were given for a repeat colonoscopy as an outpatient, along with a capsule endoscopy, however the patient did not follow up in clinic to have done. This afternoon patient was resting in bed w/o acute distress. She reports black stool but is on an iron supplement at home. No hematemesis or hematochezia. Weight has been stable. Denies CP, SOB, dizziness, abd pain, N/v, dysphagia, diarrhea, or constipation. No NSAID use. On daily PPI at home. Past History Past Medical History: other (as per HPI) Past Surgical History: Other (AV access placement) Social history: denies: smoking, alcohol abuse Family history: hypertension Medications and Allergies Allergies Allergy/AdvReac Type Severity Reaction Status Date / Time erythromycin base Allergy Rash Verified 09/05/18 14:03 [Erythromycin Base] Home Medications Medication Instructions Recorded Confirmed Last Taken Type Ferric Citrate (Nf) [Auryxia (Nf)] 630 mg PO TIDWM 09/05/18 09/05/18 Unknown History Furosemide [Lasix] 80 mg PO QDAY PRN 09/05/18 09/05/18 Unknown History Pantoprazole [Protonix TAB] 40 mg PO QDAY 09/05/18 09/05/18 Unknown History Raloxifene HCl [Evista] 60 mg PO QDAY 09/05/18 09/05/18 Unknown History ISOSORBIDE MONOnitrate [Imdur ER] 60 mg PO QDAY tablet 09/07/18 Unknown Rx Insulin Regular, Human [HumuLIN R] 0 unit SQ AC #1 vial 09/07/18 Unknown Rx Labetalol [Normodyne TAB] 200 mg PO QDAY #30 tablet 09/07/18 Unknown Rx Lisinopril [Zestril TAB] 20 mg PO DAILY tablet 09/07/18 Unknown Rx cloNIDine [Catapres] 0.2 mg PO TID #30 tablet 09/07/18 Unknown Rx Active Meds: Active Medications Acetaminophen (Tylenol) 650 mg PO Q4H PRN PRN Reason: Pain MILD(1-3)/Fever >100.5/PEREZ Bisacodyl (Dulcolax) 10 mg ME QDAY PRN PRN Reason: Constipation Clonidine HCl (Catapres) 0.2 mg PO TID [facility] Last Admin: 10/02/18 09:14 Dose: 0.2 mg Documented by: Epoetin Khurram (Procrit) 10,000 unit IV ANTOINETTE PRN PRN Reason: hemodialysis Last Admin: 09/30/18 18:48 Dose: 10,000 unit Documented by: Furosemide (Lasix) 80 mg PO DAILY PRN PRN Reason: Swelling Sodium Chloride (Nacl 0.9%) 100 mls @ 999 mls/hr IV ANTOINETTE PRN PRN Reason: Hypotension Sodium Chloride (Nacl 0.9%) 100 mls @ 999 mls/hr IV ANTOINETTE PRN PRN Reason: Hypotension Insulin Human Lispro (Humalog) 0 unit SUB-Q [facility]; Protocol Last Admin: 10/02/18 12:28 Dose: Not Given Documented by: Isosorbide Mononitrate (Imdur) 60 mg PO QDAY [facility] Last Admin: 10/02/18 09:13 Dose: 60 mg Documented by: Labetalol HCl (Normodyne) 200 mg PO QDAY [facility] Last Admin: 10/02/18 09:13 Dose: 200 mg Documented by: Lisinopril (Zestril) 20 mg PO DAILY [facility] Last Admin: 10/02/18 09:20 Dose: 20 mg Documented by: Miscellaneous Medication (Ferric Citrate) 630 mg PO QDAY [facility] Miscellaneous Medication (Raloxifene Hcl [Evista]) 60 mg PO QDAY [facility] Morphine Sulfate (Morphine) 2 mg IV Q4H PRN PRN Reason: Pain, Moderate (4-6) Ondansetron HCl (Zofran) 4 mg IV Q8H PRN PRN Reason: Nausea And Vomiting Oxycodone/Acetaminophen (Percocet 5/325) 1 tab PO Q6H PRN PRN Reason: Pain, Moderate (4-6) Pantoprazole Sodium (Protonix) 40 mg PO QDAY [facility] Last Admin: 10/02/18 09:14 Dose: 40 mg Documented by: Sodium Chloride (Sodium Chloride Flush Syringe 10 Ml) 10 ml IV BID [facility] Last Admin: 10/02/18 09:15 Dose: 10 ml Documented by: Sodium Chloride (Sodium Chloride Flush Syringe 10 Ml) 10 ml IV PRN PRN PRN Reason: LINE FLUSH medications reviewed/updated as required Review of Systems - Review of Systems All systems: negative Gastrointestinal: other (black stool), no abdominal pain, no nausea, no vomiting , no hematemesis, no hematochezia Exam - Constitutional Vital Signs: Temp Pulse Resp BP Pulse Ox 97.9 F 85 18 93/46 100 10/02/18 10:54 10/02/18 10:54 10/02/18 10:54 10/02/18 10:54 10/02/18 10:54 General appearance: no acute distress - Respiratory Respiratory: bilateral: diminished - Cardiovascular Rhythm: regular - Gastrointestinal General gastrointestinal: Present: soft, non-tender, non-distended, normal bowel sounds - Neurologic Neurological: alert and oriented x3 - Labs CBC & Chem 7: 10/01/18 05:30 10/01/18 05:30 Lab Results: Laboratory Results - last 24 hr 10/01/18 10/01/18 10/02/18 17:15 20:58 08:15 POC Glucose 139 H 243 H 211 H 10/02/18 12:14 POC Glucose 116 H Assessment and Plan 1.acute on chronic anemia 2.black stool 3.H/o PUD 4.ESRD on HD 5.HTN 6.DM -INR 1.05 -iron 16 -H/H 8.4/25.2-s/p blood transfusion (5.7/17.6 on admission) -continue to monitor H/H and transfuse as needed -currently HD stable-patient reports black stool, however is on iron supplement- stool occult pending -last EGD 08/23/2017 showed erosive gastritis and duodenitis -last colonoscopy 08/26/2017 showed liquid black stool throughout colon/poor prep but no gross lesions or obvious source of bleeding -etiology unclear-likely multifactorial (has baseline anemia from chronic disease) -will schedule repeat endoscopic evaluation of anemia tomorrow with EGD (push enteroscopy)/colonoscopy -okay for clears today then NPO after MN -continue PPI -currently receiving IV iron -avoid NSAIDs -continue supportive care -will follow <CHERY MARI - Last Filed: 10/02/18 21:12> Medications and Allergies Active Meds: Active Medications Acetaminophen (Tylenol) 650 mg PO Q4H PRN PRN Reason: Pain MILD(1-3)/Fever >100.5/PEREZ Bisacodyl (Dulcolax) 10 mg ME QDAY PRN PRN Reason: Constipation Clonidine HCl (Catapres) 0.2 mg PO TID [facility] Last Admin: 10/02/18 17:14 Dose: 0.2 mg Documented by: Epoetin Khurram (Procrit) 10,000 unit IV ANTOINETTE PRN PRN Reason: hemodialysis Last Admin: 09/30/18 18:48 Dose: 10,000 unit Documented by: Furosemide (Lasix) 80 mg PO DAILY PRN PRN Reason: Swelling Sodium Chloride (Nacl 0.9%) 100 mls @ 999 mls/hr IV ANTOINETTE PRN PRN Reason: Hypotension Insulin Human Lispro (Humalog) 0 unit SUB-Q [facility]; Protocol Last Admin: 10/02/18 18:28 Dose: 3 unit Documented by: Isosorbide Mononitrate (Imdur) 60 mg PO QDAY [facility] Last Admin: 10/02/18 09:13 Dose: 60 mg Documented by: Labetalol HCl (Normodyne) 200 mg PO QDAY [facility] Last Admin: 10/02/18 09:13 Dose: 200 mg Documented by: Lisinopril (Zestril) 20 mg PO DAILY [facility] Last Admin: 10/02/18 09:20 Dose: 20 mg Documented by: Miscellaneous Medication (Ferric Citrate) 630 mg PO QDAY [facility] Miscellaneous Medication (Raloxifene Hcl [Evista]) 60 mg PO QDAY [facility] Morphine Sulfate (Morphine) 2 mg IV Q4H PRN PRN Reason: Pain, Moderate (4-6) Ondansetron HCl (Zofran) 4 mg IV Q8H PRN PRN Reason: Nausea And Vomiting Oxycodone/Acetaminophen (Percocet 5/325) 1 tab PO Q6H PRN PRN Reason: Pain, Moderate (4-6) Pantoprazole Sodium (Protonix) 40 mg PO QDAY [facility] Last Admin: 10/02/18 09:14 Dose: 40 mg Documented by: Sodium Chloride (Sodium Chloride Flush Syringe 10 Ml) 10 ml IV BID [facility] Last Admin: 10/02/18 09:15 Dose: 10 ml Documented by: Sodium Chloride (Sodium Chloride Flush Syringe 10 Ml) 10 ml IV PRN PRN PRN Reason: LINE FLUSH Exam - Constitutional Vital Signs: Temp Pulse Resp BP Pulse Ox 98.5 F 85 17 87/42 98 10/02/18 20:24 10/02/18 20:24 10/02/18 20:24 10/02/18 20:24 10/02/18 20:24 - Labs CBC & Chem 7: 10/01/18 05:30 10/01/18 05:30 Lab Results: Laboratory Results - last 24 hr 10/02/18 10/02/18 10/02/18 08:15 12:14 17:00 POC Glucose 211 H 116 H 212 H Assessment and Plan Patient seen and examined. I have reviewed the advanced practitioner's evaluation, assessment, and plan, and agree with them. I note the following additions: patient resting comfortably in bed and feeling improved s/p transfusion of blood; given recurrent severe anemia will need to pursue further evaluation; plan on enteroscopy/colonoscopy tomorrow.
[2018-10-02] MEDS ORDERED: GOLYTELY PO ONE ×2 (16:00→17:00)
[2018-10-02] MEDS ORDERED: DULCOLAX PR STA (16:01)
[2018-10-03 06:28] LABS: Hematocrit 27.5 % (30.3-42.9); Hemoglobin 8.9 gm/dl (10.1-14.3); Mean Corpuscular HGB Conc 33 % (30-34); Mean Corpuscular Volume 86 fl (79-97); Platelet Count 270 K/mm3 (140-440); Red Blood Count 3.21 M/mm3 (3.65-5.03); Red Cell Distribution Width 19.2 % (13.2-15.2)
[2018-10-03 06:56] LABS: Calcium 8.3 mg/dL (8.4-10.2)
[2018-10-03] MEDS ORDERED: FERRLECIT 250 MG in NACL 0.9% 100 ML IV ONE (07:00)
[2018-10-03] MEDS ORDERED: XYLOCAINE 2% INFILTRATI ONE (07:33)
[2018-10-03] MEDS ORDERED: DIPRIVAN 10 MG/ML IV ONE (07:33)
[2018-10-03] MEDS ORDERED: WATER FOR IRRIG STERILE IR ONE (07:59)
[2018-10-03] MEDS ORDERED: NACL 0.9% 1000 ML 1,000 ML ONE (08:01)
--- NOTE | 2018-10-03 09:00 | Operative Report ---
Operative Report Operative Report: DATE OF SERVICE: 10/03/18 SURGEON: Lemuel Baez MD Push enteroscopy with biopsy REPORT PREOPERATIVE DIAGNOSIS and POSTOPERATIVE DIAGNOSIS: GI Bleed ESTIMATED BLOOD LOSS: Minimal DESCRIPTION OF PROCEDURE: A high-resolution pediatric colonoscope scope was passed through the oropharynx, esophagus, stomach, duodenum to the proximal jejunum. The scope was carefully withdrawn. Retroflexion was performed in the stomach. At the end of the procedure, the scope was cleaned using normal technique. Vital signs monitored continuously throughout. SEDATION: Provided by Anesthesiology Services. COMPLICATIONS: None. FINDINGS: * Jejunum - no gross lesions * Duodenum - nodularity in D2 about 4mm x 12mm in size, biopsied to r/o adenoma. On the side wall in the approximate vicinity of where would expect to find the ampulla, but the ampulla was not visualized to know definitively if an ampullary lesion or not * Severe duodenitis of the bulb with erythema and edema and friability * Stomach - Deep cratered pre-pyloric clean based ulcer, about 1cm in size. Second small 2mm superficial ulcer in the distal antrum. Remainder of the stomach had atrophic appearing gastritis. Biopsies were taken to rule out H. Pylori infection. A total of 6 biopsies were taken, 2 from the antrum, 1 from the incisura, 2 from the body. Additional biopsies taken from the edges of the ulcer to r/o dysplasia * 3cm hiatal hernia * Single clean based Del's ulcer in the hiatal hernia * GE junction at 34cm from the incisors * Remainder of the exam was normal RECOMMENDATIONS: * Increase PPI to BID dosing, avoid all NSAIDs if possible, trend Hgb, follow up pathology results
--- NOTE | 2018-10-03 09:07 | Anesthesia Day of Surgery ---
Anesthesia Day of Surgery - Day of Surgery Patient Examined: Yes Patient H&P Reviewed: Yes Patient is NPO: Yes Beta Blockers: Yes Cardiac Clearance: Yes Pulmonary Clearance: Yes Raman's Test: N/A
--- NOTE | 2018-10-03 09:07 | Operative Report ---
Operative Report Operative Report: DATE OF SERVICE: 10/03/18 SURGEON: Lemuel Baez MD COLONOSCOPY REPORT PREOPERATIVE AND POSTOPERATIVE DIAGNOSIS: GI Bleeding DESCRIPTION OF PROCEDURE: The colonoscope was passed to the cecum as identified by the ileocecal valve and appendiceal orifice. Scope was carefully withdrawn. Retroflexion was unable to be performed in the rectum due to small rectal vault. At the end of procedure, the scope was cleaned using normal technique. Vital signs monitored continuously throughout. SEDATION: Provided by Anesthesiology Services. Quality of the prep was poor COMPLICATIONS: None. ESTIMATED BLOOD LOSS: none FINDINGS: * Liquid and solid stool throughout the colon interfering with views * No gross lesions and no blood seen in the colon * Large internal and external hemorrhoids RECOMMENDATIONS: * Source of bleeding most likely the gastric ulcers * This colonoscopy was not adequate for colon cancer screening purposes, as small or medium lesions could have been missed
--- NOTE | 2018-10-03 09:09 | Anesthesia Consultation ---
Anesthesia Consult and Med Hx - Airway Anesthetic Teeth Evaluation: Poor ROM Head & Neck: Adequate Mental/Hyoid Distance: Adequate Mallampati Class: Class II Intubation Access Assessment: Good - Pulmonary Exam CTA: Yes - Cardiac Exam Cardiac Exam: RRR - Pre-Operative Health Status ASA Pre-Surgery Classification: ASA4 Proposed Anesthetic Plan: General - Pulmonary Hx Smoking: No Hx Asthma: No SOB: Yes COPD: No Hx Pneumonia: No Hx Sleep Apnea: No - Cardiovascular System Hx Hypertension: Yes Hx Coronary Artery Disease: No Hx Heart Attack/AMI: No Hx Angina: No Hx Percutaneous Transluminal Coronary Angioplasty (PTCA): No Hx Cardia Arrhythmia: No Hx Pacemaker: No Hx Internal Defibrillator: No Hx Valvular Heart Disease: No Hx Heart Murmur: No Hx Peripheral Vascular Disease: No - Central Nervous System Hx Seizures: No CVA: No Hx Psychiatric Problems: No - Gastrointestinal Hx Ulcer: Yes (PUD/ GI bleed 05/2014) Hx Gastroesophageal Reflux Disease: Yes (Mild) - Endocrine Hx Renal Disease: Yes (HD T,TH,Sat) Hx End Stage Renal Disease: Yes Hx Liver Disease: No Hx Insulin Dependent Diabetes: Yes (on Sliding scale but rarely uses) Hx Non-Insulin Dependent Diabetes: Yes Hx Hypothyroidism: No Hx Hyperthyroidism: No - Hematic Hx Anemia: Yes Hx Sickle Cell Disease: No - Other Systems Hx Alcohol Use: No Hx Cancer: No Hx Obesity: No
--- NOTE | 2018-10-03 09:21 | Progress Note ---
Assessment and Plan Impression: * End stage renal disease * Anemia secondary to GI bleed - Hb 5.7 at admission --Colonoscopy: No gross lesions and no blood seen in the colon. Large internal and external hemorrhoids. Inadequate prep --EGD: Duodenum - nodularity biopsied to r/o adenoma. Severe duodenitis of the bulb. Deep cratered pre-pyloric clean based ulcer * Melena * Malnutrition * Hypertension * Secondary hyperparathyroidism Plan: * Continue hemodialysis TTS schedule * UF as tolerated * GI findings/recommendations noted * Transfuse pRBC prn * Epogen TIW prn * Continue antiHTN medications * Renal diet Subjective Date of service: 10/03/18 Interval history: Patient without complaint today Objective - Vital Signs Vital signs: Vital Signs - 12hr 10/02/18 10/03/18 10/03/18 21:56 00:40 00:45 Temperature 98.9 F Pulse Rate 85 90 78 Respiratory 17 Rate Blood Pressure 87/42 112/63 O2 Sat by Pulse 100 Oximetry 10/03/18 10/03/18 10/03/18 04:22 04:42 07:41 Temperature 98.2 F Pulse Rate 78 84 Respiratory 17 Rate Blood Pressure 126/55 132/67 O2 Sat by Pulse 100 Oximetry 10/03/18 10/03/18 07:49 08:00 Temperature 98.7 F Pulse Rate 79 Respiratory 18 Rate Blood Pressure O2 Sat by Pulse 100 100 Oximetry - General Appearance General appearance: well-developed, well-nourished EENT: ATNC Respiratory: Present: Clear to Ascultation Cardiology: regular, S1S2 Gastrointestinal: normal, no tenderness, no distended Musculoskeletal: other (no edema) Psychiatric: cooperative - Lab 10/03/18 05:51 10/03/18 05:51 Most recent lab results Calcium 8.3 mg/dL (8.4-10.2) L 10/03/18 05:51 Medications & Allergies - Medications Allergies/Adverse Reactions: Allergies erythromycin base [Erythromycin Base] Allergy (Verified 09/05/18 14:03) Rash PATIENT ASK ME TO REMOVEDMED ON ALLERGY LIST. Home Medications: Home Medications Medication Instructions Recorded Confirmed Last Taken Type Ferric Citrate (Nf) [Auryxia (Nf)] 630 mg PO TIDWM 09/05/18 09/05/18 Unknown History Furosemide [Lasix] 80 mg PO QDAY PRN 09/05/18 09/05/18 Unknown History Raloxifene HCl [Evista] 60 mg PO QDAY 09/05/18 09/05/18 Unknown History ISOSORBIDE MONOnitrate [Imdur ER] 60 mg PO QDAY tablet 09/07/18 Unknown Rx Insulin Regular, Human [HumuLIN R] 0 unit SQ AC #1 vial 09/07/18 Unknown Rx Labetalol [Normodyne TAB] 200 mg PO QDAY #30 tablet 09/07/18 Unknown Rx Lisinopril [Zestril TAB] 20 mg PO DAILY tablet 09/07/18 Unknown Rx cloNIDine [Catapres] 0.2 mg PO TID #30 tablet 09/07/18 Unknown Rx Pantoprazole [Protonix TAB] 40 mg PO BID #60 tablet 10/03/18 Unknown Rx Active Medications: Generic Name Dose Route Start Last Admin Trade Name Freq PRN Reason Stop Dose Admin Acetaminophen 650 mg 09/30/18 21:25 Tylenol PO Q4H PRN Pain MILD(1-3)/Fever >100.5/PEREZ Bisacodyl 10 mg 10/01/18 11:50 Dulcolax ND QDAY PRN Constipation Clonidine HCl 0.2 mg 10/01/18 08:00 10/02/18 21:56 Catapres PO Not Given TID [facility] Epoetin Khurram 10,000 unit 09/30/18 17:19 09/30/18 18:48 Procrit IV 10,000 unit ANTOINETTE PRN Administration hemodialysis Furosemide 80 mg 09/30/18 21:33 Lasix PO DAILY PRN Swelling Sodium Chloride 100 mls @ 999 mls/hr 09/30/18 17:19 Nacl 0.9% IV ANTOINETTE PRN Hypotension Insulin Human Lispro 0 unit 10/01/18 07:30 10/02/18 21:30 Humalog SUB-Q Not Given ACHS [facility] Protocol Isosorbide Mononitrate 60 mg 09/30/18 22:00 10/02/18 09:13 Imdur PO 60 mg QDAY [facility] Administration Labetalol HCl 200 mg 09/30/18 22:00 10/02/18 09:13 Normodyne PO 200 mg QDAY [facility] Administration Lisinopril 20 mg 09/30/18 22:00 10/02/18 09:20 Zestril PO 20 mg DAILY [facility] Administration Miscellaneous Medication 630 mg 09/30/18 21:30 Ferric Citrate PO QDAY [facility] Miscellaneous Medication 60 mg 09/30/18 21:30 Raloxifene Hcl [Evista] PO QDAY [facility] Morphine Sulfate 2 mg 09/30/18 21:25 Morphine IV Q4H PRN Pain, Moderate (4-6) Ondansetron HCl 4 mg 09/30/18 21:25 Zofran IV Q8H PRN Nausea And Vomiting Oxycodone/Acetaminophen 1 tab 09/30/18 21:25 Percocet 5/325 PO Q6H PRN Pain, Moderate (4-6) Pantoprazole Sodium 40 mg 10/03/18 10:00 Protonix PO BID [facility] Sodium Chloride 10 ml 09/30/18 22:00 10/02/18 21:56 Sodium Chloride Flush Syringe 10 Ml IV 10 ml BID [facility] Administration Sodium Chloride 10 ml 09/30/18 21:25 Sodium Chloride Flush Syringe 10 Ml IV PRN PRN LINE FLUSH
--- NOTE | 2018-10-03 09:25 | Post Anesthesia Evaluation ---
- Post Anesthesia Evaluation Patient Participated: Yes Airway Patent: Yes Stable Respiratory Function: Yes Nausea/Vomiting: No Temp > 96.8F: Yes Pain Manageable: Yes Adequeate Hydration: Yes Anesthesia Complications: No Block Receding Appropriately: Not Applicable Patient on Ventilator: No
--- NOTE | 2018-10-03 12:19 | Discharge Summary ---
Providers - Providers Date of Admission: 09/30/18 15:33 Date of discharge: 10/04/18 Attending physician: BRUCE MEJÍA 09/30/18 12:26 Consult to Physician [CONS] Stat Comment: Dr. Liang spoke with Dr. Daniels @ 1226 Consulting Provider: ANNETTE DANIELS Physician Instructions: Reason For Exam: end stage renal disease on hemodialysis, anemia 10/01/18 13:04 Consult to Physician [CONS] Routine Comment: Consulting Provider: FIONA LOCK Physician Instructions: Reason For Exam: Anemia [facility] Condition: Stable Pertinent studies: CXR: 1. Oblique opacities overlying the left cardiophrenic angle which may represent atelectasis, pleural calcifications or infiltrate. There is no focal pleural effusion. 2. Advanced atherosclerotic vascular calcifications with central graft material as above. Procedures: EGD: FINDINGS: Jejunum - no gross lesions Duodenum - nodularity in D2 about 4mm x 12mm in size, biopsied to r/o adenoma. On the side wall in the approximate vicinity of where would expect to find the ampulla, but the ampulla was not visualized to know definitively if an ampullary lesion or not Severe duodenitis of the bulb with erythema and edema and friability Stomach - Deep cratered pre-pyloric clean based ulcer, about 1cm in size. Second small 2mm superficial ulcer in the distal antrum. Remainder of the stomach had atrophic appearing gastritis. Biopsies were taken to rule out H. Pyl real infection. A total of 6 biopsies were taken, 2 from the antrum, 1 from the incisura, 2 from the body. Additional biopsies taken from the edges of the ulcer to r/o dysplasia 3cm hiatal hernia Single clean based Del's ulcer in the hiatal hernia GE junction at 34cm from the incisors Remainder of the exam was normal RECOMMENDATIONS: Increase PPI to BID dosing, avoid all NSAIDs if possible, trend Hgb, follow up pathology results Colonoscopy: FINDINGS: Liquid and solid stool throughout the colon interfering with views No gross lesions and no blood seen in the colon Large internal and external hemorrhoids RECOMMENDATIONS: Source of bleeding most likely the gastric ulcers This colonoscopy was not adequate for colon cancer screening purposes, as sm all or medium lesions could have been missed Hospital course: Brief History: Patient is a 67 yo woman with a history ESRD on HD on TTS, anemia who presented to [facility] with hemoglobin 5.7. She was admitted for further evaluation and management. Discharge diagnosis and management: Acute on chronic AOCD - likely from GI bleed from gastric ulcer and hemorrhoids - s/p 2 units of PRBC: consulted GI, s/p EGD and colonoscopy - will continue PPI BID with outpt GI followup Febrile illness, not present on admission - Monitored overnight as she spiked fever on 10/02/18. No clear suspicion for infectious etiology - Remained afebrile for rest of the time ESRD on hemodialysis TTS: Cont HD, consulted Nephrology HTN (hypertension): Cont antihypertensives IDDM (insulin dependent diabetes mellitus): Managed with scheduled Insulin and SSI coverage GERD (gastroesophageal reflux disease): On Protonix DVT prophylaxis scd only due to the anemia and GI prophylaxis Hospitalist Physical Gen: thin frail, chronic disable appearing, NAD, Awake, Alert, Orientated HEENT: NCAT, EOMI, PERRL, OP Clear Neck: supple, no adenopathy, no thyromegaly, no JVD CVS/Heart: RRR, normal S1S2, pulses present bilaterally Chest/Lungs: CTA B, Symmetrical chest expansion, good air entry bilaterally GI/Abdomen: soft, NTND, good bowel sounds, no guarding or rebound /Bladder: no suprapubic tenderness, no CVA or paraspinal tenderness Extermity/Skin: no c/c/e, obvious rash/eczemioid type on left hand, LUE graft MSK: FROM x 4 Neuro: CN 2-12 grossly intact, no new focal deficits Psych: calm Disposition: DC-01 TO HOME OR SELFCARE Time spent for discharge: 34 minutes Core Measure Documentation - Palliative Care Palliative Care/ Comfort Measures: Not Applicable - Core Measures Any of the following diagnoses?: none Exam - Constitutional Vitals: Temp Pulse Resp BP Pulse Ox 97.6 F 71 14 123/57 98 10/03/18 08:59 10/03/18 09:29 10/03/18 09:29 10/03/18 09:29 10/03/18 09:29 Plan Activity: advance as tolerated Weight Bearing Status: Weight Bear as Tolerated Diet: diabetic, renal Follow up with: [facility] [Other] - 3-5 Days CHERY MARI MD [Staff Physician] - 7 Days Prescriptions: ISOSORBIDE MONOnitrate [Imdur ER] 30 mg PO QDAY #30 tablet Lisinopril [Zestril TAB] 5 mg PO DAILY #30 tablet
[2018-10-03] MEDS: HumaLOG SUB-Q SCH ×2 (15:56→19:08)
[2018-10-03] MEDS: SODIUM CHLORIDE FLUSH SYRINGE 10 ML IV SCH (15:57)
[2018-10-03] MEDS: PROTONIX PO SCH (15:57)
[2018-10-03] MEDS: NORMODYNE PO SCH (16:08)
[2018-10-03] MEDS: ZESTRIL PO SCH (16:08)
[2018-10-03] MEDS: IMDUR PO SCH (16:09)
[2018-10-03] MEDS: CATAPRES PO SCH (16:09)
[2018-10-04] MEDS: SODIUM CHLORIDE FLUSH SYRINGE 10 ML IV SCH ×2 (01:02→11:06)
[2018-10-04] MEDS: PROTONIX PO SCH ×2 (01:05→10:58)
[2018-10-04] MEDS: CATAPRES PO SCH (01:06)
--- NOTE | 2018-10-04 02:06 | XRay Report ---
PROCEDURE: XR CHEST ROUTINE 2V TECHNIQUE: PA and lateral chest radiographs were obtained. HISTORY: Fever. COMPARISONS: Several priors, most recent radiographs September 05, 2018. FINDINGS: Heart: Mildly enlarged. Mitral valve calcifications present. Mediastinum/Vessels: Atherosclerotic vascular calcifications. Stent graft material present in the lef t axillary and likely the brachiocephalic vasculature. Lungs/Pleural space: Cardiophrenic angle on the localized on the PA projection only. Bony thorax: Decreased osseous mineralization. No acute osseous abnormality. IMPRESSION: 1. Oblique opacities overlying the left cardiophrenic angle which may represent atelectasis, pleural calcifications or infiltrate. There is no focal pleural effusion. 2. Advanced atherosclerotic vascular calcifications with central graft material as above. This document is electronically signed by Lemuel Peters DO., Oct 04 2018 02:04:54 AM ET
[2018-10-04] MEDS: HumaLOG SUB-Q SCH ×4 (08:43→20:36)
--- NOTE | 2018-10-04 10:06 | Gastroenterology Progress Note ---
<RUTH SERRANO - Last Filed: 10/04/18 10:08> Assessment and Plan 1.acute on chronic anemia 2.black stool 3.H/o PUD 4.ESRD on HD 5.HTN 6.DM -iron 16 -H/H 8.9/27.5-trending up-s/p blood transfusion (5.7/17.6 on admission) -continue to monitor H/H and transfuse as needed -last EGD 08/23/2017 showed erosive gastritis and duodenitis -last colonoscopy 08/26/2017 showed liquid black stool throughout colon/poor prep but no gross lesions or obvious source of bleeding -etiology unclear-likely multifactorial (has baseline anemia from chronic disease) -s/p repeat EGD/colon yesterday that showed no gross lesions or blood in colon, nodularity of duodenum, duodenitits, gastritis, gastric ulcers (likely source of anemia), and hiatal hernia with Del's ulcer in the hiatal hernia -bx results pending-f/u in clinic -clinically, patient is stable. Denies abd pain, N/V, or active signs of bleeding overnight or this am. Tolerating diet. -continue PPI BID -continue iron supplement -avoid NSAIDs -continue supportive care -patient is okay to be d/c per GI standpoint on high dose PPI with f/u in clinic in ~2 weeks (need for f/u discussed with patient with understanding voiced; office information/card given to patient) -will sign off, please call if needed Subjective Date of service: 10/04/18 Principal diagnosis: anemia Interval history: No acute distress. Denies abd pain, N/V, or active signs of bleeding. Tolerating diet. Objective - Constitutional Vitals: Temp Pulse Resp BP Pulse Ox 98.0 F 73 18 119/53 100 10/04/18 08:07 10/04/18 08:07 10/04/18 08:07 10/04/18 08:07 10/04/18 08:07 General appearance: no acute distress - Respiratory Respiratory: bilateral: diminished - Cardiovascular Rhythm: regular - Gastrointestinal General gastrointestinal: Present: soft, non-tender, non-distended, normal bowel sounds - Neurologic Neurological: alert and oriented x3 - Labs CBC & Chem 7: 10/03/18 05:51 10/03/18 05:51 Labs: Laboratory Results - last 24 hr 09/30/18 10/03/18 10/03/18 12:24 07:50 16:21 POC Glucose 214 H 298 H Crossmatch See Detail <CHERY MARI - Last Filed: 10/04/18 23:10> Assessment and Plan Patient seen and examined. I have reviewed the advanced practitioner's evaluation, assessment, and plan, and agree with them. I note the following additions: PAtient feeling better, reports no melena today, had gastric ulcer on yesterday's procedure, this is the putative source of melena, BID PPI and follow up biopsy results and she should follow up in the office in 2-4 weeks for consideration of repeat EGD in 6-8 weeks to ensure healing of the ulcer Objective - Constitutional Vitals: Temp Pulse Resp BP Pulse Ox 99.2 F 88 20 132/56 97 10/04/18 20:08 10/04/18 20:08 10/04/18 20:08 10/04/18 20:08 10/04/18 20:08 - Labs CBC & Chem 7: 10/03/18 05:51 10/03/18 05:51 Labs: Laboratory Results - last 24 hr 10/04/18 10/04/18 10/04/18 08:36 11:40 16:32 POC Glucose 219 H 116 H 300 H
[2018-10-04] MEDS ORDERED: ZESTRIL PO SCH ×2 (11:00→11:30)
[2018-10-04] MEDS ORDERED: IMDUR PO SCH (12:00)
--- NOTE | 2018-10-04 13:30 | Progress Note ---
Assessment and Plan Acute on chronic AOCD - likely from GI bleed from gastric ulcer and hemorrhoids - s/p 2 units of PRBC: consulted GI, s/p EGD and colonoscopy - will continue PPI BID with outpt followup Febrile illness, not present on admission - Monitor overnight as she spiked fever. if continued to have fever we'll get blood culture ESRD on hemodialysis TTS: Cont HD, consulted Nephrology HTN (hypertension): Cont antihypertensives IDDM (insulin dependent diabetes mellitus): Managed with scheduled Insulin and SSI coverage GERD (gastroesophageal reflux disease): On Protonix DVT prophylaxis scd only due to the anemia and GI prophylaxis Discharge: A patient remains afebrile Brief History: Patient is a 67 yo woman with a history ESRD on HD on TTS, anemia who presented to [facility] with hemoglobin 5.7. She was just discharged from here on 09/08/18 for same thing. She was admitted for further evaluation and management. Hospitalist Physical Gen: thin frail, chronic disable appearing, NAD, Awake, Alert, Orientated HEENT: NCAT, EOMI, PERRL, OP Clear Neck: supple, no adenopathy, no thyromegaly, no JVD CVS/Heart: RRR, normal S1S2, pulses present bilaterally Chest/Lungs: CTA B, Symmetrical chest expansion, good air entry bilaterally GI/Abdomen: soft, NTND, good bowel sounds, no guarding or rebound /Bladder: no suprapubic tenderness, no CVA or paraspinal tenderness Extermity/Skin: no c/c/e, obvious rash/eczemioid type on left hand, LUE graft MSK: FROM x 4 Neuro: CN 2-12 grossly intact, no new focal deficits Psych: calm Subjective Date of service: 10/03/18 Principal diagnosis: anemia Interval history: Patient seen and examined. Medical records and medication list reviewed. No acute event overnight noted by the RN. Patient denies any chest pain or difficulty breathing. Patient is tolerating diet following the endoscopy. Discussed plan of care at bedside with patient. Plan for discharge today but unable to reach out to the daughter for transportation Addendum the shaped patient was noted to spike fever Objective - Constitutional Vitals: Vital Signs - 12hr 10/04/18 10/04/18 10/04/18 04:00 04:46 08:00 Temperature 98.5 F 98.3 F Pulse Rate 106 H 74 73 Respiratory 16 18 Rate Blood Pressure 112/54 Blood Pressure 119/53 [Left] O2 Sat by Pulse 99 100 Oximetry 10/04/18 10/04/18 10/04/18 08:07 11:16 11:20 Temperature 98.0 F Pulse Rate 73 73 73 Respiratory 18 Rate Blood Pressure 119/53 119/53 119/53 Blood Pressure [Left] O2 Sat by Pulse 100 Oximetry 10/04/18 10/04/18 11:31 12:00 Temperature 97.9 F 97.9 F Pulse Rate 97 H Respiratory 16 16 Rate Blood Pressure 111/53 Blood Pressure 111/53 [Left] O2 Sat by Pulse 97 Oximetry - Labs CBC & Chem 7: 10/03/18 05:51 10/03/18 05:51 Labs: Abnormal lab results 10/03/18 10/04/18 10/04/18 Range/Units 16:21 08:36 11:40 POC Glucose 298 H 219 H 116 H (70-105)
--- NOTE | 2018-10-04 17:41 | Progress Note ---
Assessment and Plan Impression: * End stage renal disease * Anemia secondary to GI bleed - Hb 5.7 at admission --Colonoscopy: No gross lesions and no blood seen in the colon. Large internal and external hemorrhoids. Inadequate prep --EGD: Duodenum - nodularity biopsied to r/o adenoma. Severe duodenitis of the bulb. Deep cratered pre-pyloric clean based ulcer * Melena * Malnutrition * Hypertension * Secondary hyperparathyroidism Plan: * Continue hemodialysis TTS schedule * UF as tolerated * GI findings/recommendations noted * Transfuse pRBC prn * Epogen TIW prn * Continue antiHTN medications * Renal diet Subjective Date of service: 10/04/18 Principal diagnosis: anemia Interval history: Patient has no complaints today Objective - Vital Signs Vital signs: Vital Signs - 12hr 10/04/18 10/04/18 10/04/18 08:00 08:07 11:16 Temperature 98.3 F 98.0 F Pulse Rate 73 73 73 Respiratory 18 18 Rate Blood Pressure 119/53 119/53 Blood Pressure 119/53 [Left] O2 Sat by Pulse 100 100 Oximetry 10/04/18 10/04/18 10/04/18 11:20 11:31 12:00 Temperature 97.9 F 97.9 F Pulse Rate 73 97 H Respiratory 16 16 Rate Blood Pressure 119/53 111/53 Blood Pressure 111/53 [Left] O2 Sat by Pulse 97 Oximetry 10/04/18 15:00 Temperature 98 F Pulse Rate 80 Respiratory 16 Rate Blood Pressure Blood Pressure 114/57 [Left] O2 Sat by Pulse 99 Oximetry - General Appearance General appearance: well-developed, frail EENT: ATNC Respiratory: Present: Clear to Ascultation Cardiology: regular, S1S2 Gastrointestinal: normal, no tenderness, no distended Integumentary: warm and dry Psychiatric: cooperative - Lab 10/03/18 05:51 10/03/18 05:51 Most recent lab results Calcium 8.3 mg/dL (8.4-10.2) L 10/03/18 05:51 Medications & Allergies - Medications Allergies/Adverse Reactions: Allergies erythromycin base [Erythromycin Base] Allergy (Verified 09/05/18 14:03) Rash PATIENT ASK ME TO REMOVEDMED ON ALLERGY LIST. Home Medications: Home Medications Medication Instructions Recorded Confirmed Last Taken Type Ferric Citrate (Nf) [Auryxia (Nf)] 630 mg PO TIDWM 09/05/18 09/05/18 Unknown History Furosemide [Lasix] 80 mg PO QDAY PRN 09/05/18 09/05/18 Unknown History Raloxifene HCl [Evista] 60 mg PO QDAY 09/05/18 09/05/18 Unknown History Insulin Regular, Human [HumuLIN R] 0 unit SQ AC #1 vial 09/07/18 Unknown Rx Pantoprazole [Protonix TAB] 40 mg PO BID #60 tablet 10/03/18 Unknown Rx ISOSORBIDE MONOnitrate [Imdur ER] 30 mg PO QDAY #30 tablet 10/04/18 Unknown Rx Lisinopril [Zestril TAB] 5 mg PO DAILY #30 tablet 10/04/18 Unknown Rx Active Medications: Generic Name Dose Route Start Last Admin Trade Name Freq PRN Reason Stop Dose Admin Acetaminophen 650 mg 09/30/18 21:25 10/04/18 00:58 Tylenol PO 650 mg Q4H PRN Administration Pain MILD(1-3)/Fever >100.5/PEREZ Bisacodyl 10 mg 10/01/18 11:50 Dulcolax VA QDAY PRN Constipation Epoetin Khurram 10,000 unit 09/30/18 17:19 09/30/18 18:48 Procrit IV 10,000 unit ANTOINETTE PRN Administration hemodialysis Furosemide 80 mg 09/30/18 21:33 Lasix PO DAILY PRN Swelling Sodium Chloride 100 mls @ 999 mls/hr 09/30/18 17:19 Nacl 0.9% IV ANTOINETTE PRN Hypotension Insulin Human Lispro 0 unit 10/01/18 07:30 10/04/18 08:45 Humalog SUB-Q 3 unit ACHS CALIXTO Administration Protocol Isosorbide Mononitrate 30 mg 10/04/18 12:00 10/04/18 11:16 Imdur PO 30 mg QDAY CALIXTO Administration Lisinopril 5 mg 10/04/18 11:30 10/04/18 11:20 Zestril PO 5 mg QDAY CALIXTO Administration Miscellaneous Medication 630 mg 09/30/18 21:30 Ferric Citrate PO QDAY CALIXTO Miscellaneous Medication 60 mg 09/30/18 21:30 Raloxifene Hcl [Evista] PO QDAY CALIXTO Morphine Sulfate 2 mg 09/30/18 21:25 Morphine IV Q4H PRN Pain, Moderate (4-6) Ondansetron HCl 4 mg 09/30/18 21:25 Zofran IV Q8H PRN Nausea And Vomiting Oxycodone/Acetaminophen 1 tab 09/30/18 21:25 10/04/18 00:59 Percocet 5/325 PO 1 tab Q6H PRN Administration Pain, Moderate (4-6) Pantoprazole Sodium 40 mg 10/03/18 10:00 10/04/18 10:58 Protonix PO 40 mg BID CALIXTO Administration Sodium Chloride 10 ml 09/30/18 22:00 10/04/18 11:06 Sodium Chloride Flush Syringe 10 Ml IV 10 ml BID CALIXTO Administration Sodium Chloride 10 ml 09/30/18 21:25 Sodium Chloride Flush Syringe 10 Ml IV PRN PRN LINE FLUSH
[2018-10-04 21:40] VITALS: BP 132/56
== END 2018-10-04 23:35 | disposition home or self-care (01) | DRG 377 ==
LOC: ED 11:52 → 4A 15:33
PROVIDERS: ADMIT Internal Medicine; ATTEND Internal Medicine
PROC: 5A1D70Z Performance of Urinary Filtration, Intermittent, Less than 6 Hours Per Day (ICD-10-PCS; 2018-09-30)
PROC: 30233N1 Transfusion of Nonautologous Red Blood Cells into Peripheral Vein, Percutaneous Approach (ICD-10-PCS; 2018-09-30)
PROC: 0DB98ZX Excision of Duodenum, Via Natural or Artificial Opening Endoscopic, Diagnostic (ICD-10-PCS; principal; 2018-10-03)
PROC: 0DB78ZX Excision of Stomach, Pylorus, Via Natural or Artificial Opening Endoscopic, Diagnostic (ICD-10-PCS; 2018-10-03)
PROC: 0DJD8ZZ Inspection of Lower Intestinal Tract, Via Natural or Artificial Opening Endoscopic (ICD-10-PCS; 2018-10-03)
PROC: 5A1D70Z Performance of Urinary Filtration, Intermittent, Less than 6 Hours Per Day (ICD-10-PCS; 2018-10-03)
DX: K25.4 Chronic or unspecified gastric ulcer with hemorrhage (principal); N18.6 End stage renal disease; N25.81 Secondary hyperparathyroidism of renal origin; E46 Unspecified protein-calorie malnutrition; I12.0 Hypertensive chronic kidney disease with stage 5 chronic kidney disease or end stage renal disease; Z68.1 Body mass index [BMI] 19.9 or less, adult; D63.1 Anemia in chronic kidney disease; K64.9 Unspecified hemorrhoids; E11.22 Type 2 diabetes mellitus with diabetic chronic kidney disease; K21.9 Gastro-esophageal reflux disease without esophagitis; K44.9 Diaphragmatic hernia without obstruction or gangrene; Z79.899 Other long term (current) drug therapy; Z79.4 Long term (current) use of insulin; Z99.2 Dependence on renal dialysis; Z82.49 Family history of ischemic heart disease and other diseases of the circulatory system; Z87.11 Personal history of peptic ulcer disease
CPT/HCPCS: 36415; 36430; 71046; 80048; 80053; 80074; 80076; 82607; 82747; 82962; 83036; 83550; 85014; 85018; 85025; 85027; 85045; 85610; 85730; 86850; 86900; 86901; 86920; 87040; 88305; 88342; 93005; 93010; G0378; J0885; J1815; J2704; J2916; J7030; J7040; P9016

== ENCOUNTER 2018-10-14 15:48 | Inpatient (IN) | payer MEDICARE ==
--- NOTE | 2018-10-14 16:16 | Emergency Department Report ---
ED General Adult HPI - General Chief complaint: Extremity Injury, Lower Stated complaint: WEAKNESS/R LEG PAIN Time Seen by Provider: 10/14/18 15:56 Source: family, EMS (ems notes not available at time of chart dictation), RN notes reviewed, old records reviewed Mode of arrival: Stretcher Limitations: Altered Mental Status, Physical Limitation, Other (the patient is a poor historian) - History of Present Illness Initial comments: Nephrology: Dr. Melton Past medical history: End-stage renal disease, on dialysis, history of anemia, question upper GI bleed, question dementia, likely anemia of chronic disease, hypertension, diabetes, GERD, reflux This is a 67-year-old female. The patient is brought to the hospital by EMS for a sick call. As per verbal report from EMS, patient was found at home, with reported squalid living conditions. Apparently, the patient's living quarters were found to be very unclean, and the patient was reportedly found sitting on a front porch and an iron chair, with refuse in front of her. We do not know who contacted 911. The patient complains of general weakness. She cannot recall the name of her primary care doctor or her private thermospray operator. She complains of a headache. She thinks it started today. She indicates it is global. She is not able to describe the quality of nature of the headache, exacerbating or relieving factors. She has chronic lower extremity swelling and pain and discomfort. She reports that she would like to eat. She denies chest pain. The patient states she walks at home with a cane and sometimes a walker. -: This afternoon Radiation: other Quality: other Consistency: other Improves with: other Worsens with: other - Related Data Home Medications Medication Instructions Recorded Confirmed Last Taken Ferric Citrate (Nf) [Auryxia] 630 mg PO TIDWM 09/05/18 09/05/18 Unknown Furosemide [Lasix TAB] 80 mg PO QDAY PRN 09/05/18 09/05/18 Unknown Raloxifene HCl [Evista] 60 mg PO QDAY 09/05/18 09/05/18 Unknown Previous Rx's Medication Instructions Recorded Last Taken Type Insulin Regular, Human [HumuLIN R] 0 unit SQ AC #1 vial 09/07/18 Unknown Rx Pantoprazole [Protonix TAB] 40 mg PO BID #60 tablet 10/03/18 Unknown Rx ISOSORBIDE MONOnitrate [Imdur ER] 30 mg PO QDAY #30 tablet 10/04/18 Unknown Rx Lisinopril [Zestril TAB] 5 mg PO DAILY #30 tablet 10/04/18 Unknown Rx Allergies Allergy/AdvReac Type Severity Reaction Status Date / Time erythromycin base Allergy Rash Verified 09/05/18 14:03 [Erythromycin Base] ED Review of Systems ROS: Stated complaint: WEAKNESS/R LEG PAIN Other details as noted in HPI Comment: Unobtainable due to pts medical conditions (patient is a poor historian) Constitutional: malaise, weakness Respiratory: denies: cough Cardiovascular: denies: chest pain Gastrointestinal: denies: abdominal pain Genitourinary: denies: dysuria Musculoskeletal: arthralgia Neurological: weakness, confusion ED Past Medical Hx - Past Medical History Hx Hypertension: Yes Hx CVA: No Hx Heart Attack/AMI: No Hx Congestive Heart Failure: No Hx Diabetes: Yes Hx Deep Vein Thrombosis: No Hx Pulmonary Embolism: No Hx GERD: Yes Hx Liver Disease: No Hx Renal Disease: Yes (HD T,TH,Sat) Hx Sickle Cell Disease: No Hx Arthritis: No Hx Headaches / Migraines: No Hx Seizures: No Hx Kidney Stones: No Hx Psychiatric Treatment: No Hx Asthma: No Hx COPD: No Hx Tuberculosis: No Hx Dementia: No Hx HIV: No Additional medical history: anemia - Surgical History Hx Coronary Stent: No Hx Open Heart Surgery: No Hx Pacemaker: No Hx Internal Defibrillator: No Hx Cholecystectomy: No Hx Appendectomy: No Hx Breast Surgery: No Additional Surgical History: graft left arm - Social History Smoking Status: Never Smoker - Medications Home Medications: Home Medications Medication Instructions Recorded Confirmed Last Taken Type Ferric Citrate (Nf) [Auryxia] 630 mg PO TIDWM 09/05/18 09/05/18 Unknown History Furosemide [Lasix TAB] 80 mg PO QDAY PRN 09/05/18 09/05/18 Unknown History Raloxifene HCl [Evista] 60 mg PO QDAY 09/05/18 09/05/18 Unknown History Insulin Regular, Human [HumuLIN R] 0 unit SQ AC #1 vial 09/07/18 Unknown Rx Pantoprazole [Protonix TAB] 40 mg PO BID #60 tablet 10/03/18 Unknown Rx ISOSORBIDE MONOnitrate [Imdur ER] 30 mg PO QDAY #30 tablet 10/04/18 Unknown Rx Lisinopril [Zestril TAB] 5 mg PO DAILY #30 tablet 10/04/18 Unknown Rx ED Physical Exam - General Limitations: Physical Limitation, Other (the patient is a poor historian) General appearance: alert, in no apparent distress - Head Head exam: Present: atraumatic, normocephalic - Eye Eye exam: Present: normal appearance, EOMI, other (visual acuity intact to finger counting, color perception, reading at a close distance). Absent: nystagmus - ENT ENT exam: Present: normal exam, normal orophraynx, mucous membranes moist, normal external ear exam - Neck Neck exam: Present: normal inspection, full ROM. Absent: tenderness, meningismus - Respiratory Respiratory exam: Present: rhonchi (rhonchi noted in the bilateral bases). Absent: wheezes, rales - Cardiovascular Cardiovascular Exam: Present: normal rhythm, systolic murmur (2/6 systolic murmur heard strongest at the right and left second intercostal space). Absent: diastolic murmur, rubs, gallop - GI/Abdominal GI/Abdominal exam: Present: soft. Absent: distended, tenderness, guarding, rebound, rigid, pulsatile mass - Extremities Exam Extremities exam: Present: full ROM (left upper extremity fistula, with no redness, pus or streaking), pedal edema, other (2+ pulses noted in the bilateral upper, lower extremities. Compartments soft. No long bony tenderness. The pelvis is stable.). Absent: calf tenderness - Back Exam Back exam: Present: normal inspection, full ROM. Absent: tenderness, CVA tenderness (R), CVA tenderness (L), paraspinal tenderness, vertebral tenderness - Neurological Exam Neurological exam: Present: alert, other (Extraocular movements intact. Tongue midline. No facial droop. Facial sensation intact to light touch in the V1, V2, V3 distribution bilaterally. 5 and 5 strength in 4 extremities.. Sensation is intact to light touch in 4 extremities.) - Psychiatric Psychiatric exam: Present: normal affect, normal mood - Skin Skin exam: Present: warm ED Course Vital Signs 10/14/18 10/14/18 10/14/18 15:51 15:58 16:00 Temperature 98.8 F Pulse Rate 106 H Respiratory 18 Rate Blood Pressure 108/64 108/64 Blood Pressure 108/64 [Right] O2 Sat by Pulse 100 100 98 Oximetry 10/14/18 10/14/18 10/14/18 16:15 16:30 16:45 Temperature Pulse Rate Respiratory Rate Blood Pressure 132/51 138/60 Blood Pressure [Right] O2 Sat by Pulse 81 L 100 100 Oximetry 10/14/18 10/14/18 10/14/18 17:00 17:15 17:30 Temperature Pulse Rate Respiratory Rate Blood Pressure 130/59 147/60 138/61 Blood Pressure [Right] O2 Sat by Pulse 99 100 100 Oximetry 10/14/18 10/14/18 10/14/18 17:45 17:59 18:00 Temperature Pulse Rate Respiratory 18 Rate Blood Pressure 142/60 154/58 Blood Pressure [Right] O2 Sat by Pulse 100 100 Oximetry 10/14/18 10/14/18 10/14/18 18:15 18:30 18:45 Temperature Pulse Rate Respiratory Rate Blood Pressure 137/61 141/57 128/58 Blood Pressure [Right] O2 Sat by Pulse 100 100 100 Oximetry 10/14/18 18:56 Temperature Pulse Rate 94 H Respiratory 18 Rate Blood Pressure Blood Pressure [Right] O2 Sat by Pulse Oximetry - Reevaluation(s) Reevaluation #1: 10/14/18 16:43 Differential diagnosis, including but not limited to: Pneumonia, urinary tract infection, end-stage renal disease on dialysis, undiagnosed dementia, case management issues, hyperkalemia, electrolyte derangement Assessment and plan 67-year-old female brought to the hospital by emergency medical services, for generalized weakness, found to have substandard living conditions. Apparently, one daughter does not live in the state of [place] (as per verbal report from EMS), and another family member is reportedly occupied by a very 6 spouse. The patient does not appear to have evidence of physical abuse. The patient may not have the ability to care for herself independently. We will obtain basic screening laboratory studies, CT scan of the brain, discussed with her consulting thermospray operator, case management has been contacted by the charge nurse. Once the patient has been medically optimized, she may require placements into a nursing or personal half-way. Reevaluation #2: 10/14/18 17:12 Laboratory studies reviewed and appreciated. Elevated troponin likely secondary to chronic renal insufficiency. Discussed with covering nephrology, Dr. Lora, who is amenable to following in conjunction and in consultation. Reevaluation #3: 10/14/18 17:30 CT scan of the brain is negative for acute disease. X-ray of the chest unremarkable. Hospital physician is paged to arrange admission. The patient has a number of chronic medical condition which at this point in time are not acutely decompensated, however, she will require her routine dialysis, and is not able to care for herself independently. A safe outpatient discharge at this point time cannot be coordinated in the emergency room. The patient will therefore be admitted for social media project manager and placement. Reevaluation #4: 10/14/18 18:12 Patient was seen and evaluated by case management. As for case management, family cannot take care of patient at this time. One family member is not in state. Another family member has a sick spouse. The patient clearly cannot care for herself at this time. She will be admitted for proper placement and routine dialysis. Reevaluation #5: 10/14/18 19:34 Dr Yan accepts ED Medical Decision Making - Lab Data Result diagrams: 10/14/18 16:18 10/14/18 16:18 Vital Signs 10/14/18 15:58 Temperature 98.8 F Pulse Rate 106 H Respiratory 18 Rate Blood Pressure 108/64 [Right] O2 Sat by Pulse 100 Oximetry - EKG Data 10/14/18 16:45 This is limited by motion artifact. This is a sinus tachycardia rhythm. There is a normal axis. The QTC is prolonged. There is incomplete right bundle- branch block. The IN interval is within normal limits. This EKG appears to be unchanged from prior EKG from 09/30/2018. This EKG is not consistent with ST elevation myocardial infarction. - Radiology Data Radiology results: image reviewed interpreted by me: X-ray of the chest shows no acute disease, chronic stent material noted, question intimal atelectasis bilaterally. Critical care attestation.: If time is entered above; I have spent that time in minutes in the direct care of this critically ill patient, excluding procedure time. ED Disposition Clinical Impression: Dementia, ESRD (end stage renal disease) on dialysis, Case management patient Disposition: OP ADMIT IP TO THIS HOSP Is pt being admited?: Yes Condition: Fair Referrals: PRIMARY CARE, [Referring] - 3-5 Days
[2018-10-14 16:44] LABS: Hematocrit 21.6 % (30.3-42.9); Hemoglobin 6.9 gm/dl (10.1-14.3); Mean Corpuscular HGB Conc 32 % (30-34); Mean Corpuscular Volume 90 fl (79-97); Platelet Count 371 K/mm3 (140-440); Red Blood Count 2.41 M/mm3 (3.65-5.03)
[2018-10-14 16:48] LABS: INR 1.04 (0.87-1.13)
[2018-10-14 16:50] LABS: Calcium 8.3 mg/dL (8.4-10.2)
[2018-10-14 17:06] LABS: Chol/HDL Ratio 3.64 %
--- NOTE | 2018-10-14 17:10 | Cat Scan Report ---
PROCEDURE: CT HEAD/BRAIN WO CON TECHNIQUE: Computerized tomography of the head was performed without contrast material. CT DOSE LENGTH PRODUCT: 805.4 mGycm HISTORY: headache, general weakness COMPARISONS: CT head 01/05/2018 . FINDINGS: Skull and scalp: Normal . Paranasal sinuses: Normal . Ventricles and subarachnoid spaces: Normal . Cerebrum: No evidence of hemorrhage, acute infarction or mass . Small amount of low-density in the p eriventricular white matter is consistent with small vessel ischemic changes. Cerebellum and brainstem: No evidence of hemorrhage, acute infarction or mass . Vasculature: Normal . Other: None . ASPECTS: 10 IMPRESSION: No acute intracranial abnormality. No change. This document is electronically signed by Arelis Ramírez MD., Oct 14 2018 05:08:43 PM ET
[2018-10-14 17:12] LABS: Red Cell Distribution Width 21.1 % (13.2-15.2)
--- NOTE | 2018-10-14 17:12 | XRay Report ---
PROCEDURE: XR CHEST 1V AP TECHNIQUE: Chest radiograph single view. HISTORY: weak esrd COMPARISONS: Chest x-ray dated October 04, 2018 . FINDINGS: There is prominence of the interstitial markings in both lungs similar in appearance to the previous study. There is no evidence of focal infiltrate, pneumothorax or pleural fluid collection. There is linear atelectasis in the left lung base that appears to be decreased in degree in the inter rc. The cardiac silhouette is enlarged similar in appearance to the previous study. There is atherosclerotic vascular calcification of the thoracic aorta. A vascular stent is demonstrated in the region of the left innominate vein. A vascular stent in projected in the proximal aspect of the left arm. The bony structures are unremarkable. IMPRESSION: 1. No evidence of an acute pulmonary process. 2. Stable enlarged cardiac silhouette. 3. Probable atelectasis left lung base that appears to be decreased in the interval. This document is electronically signed by Candie Kim MD., Oct 14 2018 05:10:27 PM ET
[2018-10-14] MEDS ORDERED: ZOFRAN IV PRN (20:41)
[2018-10-14] MEDS ORDERED: MORPHINE IV PRN (20:41)
[2018-10-14] MEDS ORDERED: TYLENOL PO PRN (20:41)
[2018-10-14] MEDS ORDERED: SODIUM CHLORIDE FLUSH SYRINGE 10 ML IV PRN (20:41)
[2018-10-14] MEDS: HEPARIN SUB-Q SCH (22:02)
[2018-10-14] MEDS: PROTONIX PO SCH (22:02)
[2018-10-14] MEDS ORDERED: MORPHINE ONE (22:52)
[2018-10-15 06:25] LABS: Basophils # (Auto) 0.1 K/mm3 (0.0-0.1); Basophils % (Auto) 0.8 % (0.0-1.8); Eosinophils # (Auto) 0.2 K/mm3 (0.0-0.4); Eosinophils % (Auto) 3.2 % (0.0-4.3); Hemoglobin 6.4 gm/dl (10.1-14.3); Lymphocytes # (Auto) 0.8 K/mm3 (1.2-5.4); Lymphocytes % (Auto) 13.9 % (13.4-35.0); Mean Corpuscular HGB Conc 32 % (30-34); Mean Corpuscular Volume 89 fl (79-97); Monocytes # (Auto) 0.6 K/mm3 (0.0-0.8); Monocytes % (Auto) 10.5 % (0.0-7.3); Platelet Count 340 K/mm3 (140-440)
[2018-10-15 06:31] LABS: Red Cell Distribution Width 22.7 % (13.2-15.2)
[2018-10-15 06:32] LABS: Hematocrit 19.7 % (30.3-42.9)
[2018-10-15 06:50] LABS: Albumin 3.1 g/dL (3.9-5); Calcium 8.2 mg/dL (8.4-10.2)
--- NOTE | 2018-10-15 07:03 | History and Physical Report ---
History of Present Illness Date of examination: 10/14/18 Date of admission: 10/14/18 20:41 Chief complaint: Patient living in unhygeinic conditions On HD History of present illness: 67-year-old female brought to the hospital by EMS for a sick call. As per verbal report from EMS, patient was found at home, with reported squalid living conditions. Apparently, the patient's living quarters were found to be very unclean, and the patient was reportedly found sitting on a front porch and an iron chair, with refuse in front of her. We do not know who contacted 911. The patient complains of general weakness. She cannot recall the name of her primary care doctor or her private property management bookkeeper. She complains of a headache. She thinks it started today. She indicates it is global. She is not able to describe the quality of nature of the headache, exacerbating or relieving factors. She has chronic lower extremity swelling and pain and discomfort. She reports that she would like to eat. She denies chest pain.The patient states she walks at home with a cane and sometimes a walker. Had HD today Past Medical History Hypertension: Yes Diabetes: Yes GERD: Yes Renal Disease: Yes (HD T,TH,Sat) Additional medical history: anemia Surgical History AV graft left arm Social History Smoking Status: Never Smoker Medications Home Medications: Home Medications Medication Instructions Recorded Confirmed Last Taken Type Ferric Citrate (Nf) [Auryxia] 630 mg PO TIDWM 09/05/18 09/05/18 Unknown History Furosemide [Lasix TAB] 80 mg PO QDAY PRN 09/05/18 09/05/18 Unknown History Raloxifene HCl [Evista] 60 mg PO QDAY 09/05/18 09/05/18 Unknown History Insulin Regular, Human [HumuLIN R] 0 unit SQ AC #1 vial 09/07/18 Unknown Rx Pantoprazole [Protonix TAB] 40 mg PO BID #60 tablet 10/03/18 Unknown Rx ISOSORBIDE MONOnitrate [Imdur ER] 30 mg PO QDAY #30 tablet 10/04/18 Unknown Rx Lisinopril [Zestril TAB] 5 mg PO DAILY #30 tablet 10/04/18 Unknown Rx Review of Systems ROS: Stated complaint: WEAKNESS/R LEG PAIN Other details as noted in HPI Comment: Unobtainable due to pts medical conditions (patient is a poor historian) Constitutional: malaise, weakness Respiratory: denies: cough Cardiovascular: denies: chest pain Gastrointestinal: denies: abdominal pain Genitourinary: denies: dysuria Musculoskeletal: arthralgia Neurological: weakness, confusion Medications and Allergies Allergies Allergy/AdvReac Type Severity Reaction Status Date / Time erythromycin base Allergy Rash Verified 09/05/18 14:03 [Erythromycin Base] Home Medications Medication Instructions Recorded Confirmed Last Taken Type Ferric Citrate (Nf) [Auryxia] 630 mg PO TIDWM 09/05/18 09/05/18 Unknown History Furosemide [Lasix TAB] 80 mg PO QDAY PRN 09/05/18 09/05/18 Unknown History Raloxifene HCl [Evista] 60 mg PO QDAY 09/05/18 09/05/18 Unknown History Insulin Regular, Human [HumuLIN R] 0 unit SQ AC #1 vial 09/07/18 Unknown Rx Pantoprazole [Protonix TAB] 40 mg PO BID #60 tablet 10/03/18 Unknown Rx ISOSORBIDE MONOnitrate [Imdur ER] 30 mg PO QDAY #30 tablet 10/04/18 Unknown Rx Lisinopril [Zestril TAB] 5 mg PO DAILY #30 tablet 10/04/18 Unknown Rx Active Meds: Active Medications Acetaminophen (Tylenol) 650 mg PO Q4H PRN PRN Reason: Pain MILD(1-3)/Fever >100.5/PEREZ Heparin Sodium (Porcine) (Heparin) 5,000 unit SUB-Q Q12HR [facility] Last Admin: 10/14/18 22:02 Dose: 5,000 unit Documented by: Isosorbide Mononitrate (Imdur) 30 mg PO DAILY [facility] Lisinopril (Zestril) 5 mg PO QDAY [facility] Morphine Sulfate (Morphine) 2 mg IV Q4H PRN PRN Reason: Pain, Moderate (4-6) Last Admin: 10/14/18 22:51 Dose: 2 mg Documented by: Ondansetron HCl (Zofran) 4 mg IV Q8H PRN PRN Reason: Nausea And Vomiting Oxycodone/Acetaminophen (Percocet 5/325) 1 tab PO Q6H PRN PRN Reason: Pain, Moderate (4-6) Pantoprazole Sodium (Protonix) 40 mg PO BID [facility] Last Admin: 10/14/18 22:02 Dose: 40 mg Documented by: Sodium Chloride (Sodium Chloride Flush Syringe 10 Ml) 10 ml IV BID [facility]IXTO Sodium Chloride (Sodium Chloride Flush Syringe 10 Ml) 10 ml IV PRN PRN PRN Reason: LINE FLUSH Exam - Constitutional Vitals: Temp Pulse Resp BP Pulse Ox 99.5 F 93 H 14 150/66 98 10/15/18 03:28 10/15/18 03:28 10/15/18 03:28 10/15/18 03:28 10/15/18 03:28 General appearance: Present: no acute distress, well-nourished - EENT Eyes: Present: PERRL ENT: hearing intact, clear oral mucosa - Neck Neck: Present: supple, normal ROM - Respiratory Respiratory effort: normal Respiratory: bilateral: CTA - Cardiovascular Heart rate: 78 Rhythm: regular Heart Sounds: Present: S1 & S2. Absent: rub, click - Extremities Extremities: no ischemia, pulses intact, pulses symmetrical, No edema Peripheral Pulses: within normal limits - Abdominal General gastrointestinal: Present: soft, non-tender, non-distended, normal bowel sounds Female genitourinary: Present: normal - Rectal Rectal Exam: deferred - Integumentary Integumentary: Present: clear, warm, dry - Musculoskeletal Musculoskeletal: gait normal, strength equal bilaterally - Psychiatric Psychiatric: appropriate mood/affect, intact judgment & insight - Neurologic Neurologic: CNII-XII intact, moves all extremities - Allied Health Allied health notes reviewed: nursing, case management Results - Labs CBC & Chem 7: 10/15/18 05:35 10/15/18 05:35 Labs: Laboratory Last Values WBC 6.1 K/mm3 (4.5-11.0) 10/15/18 05:35 RBC 2.20 M/mm3 (3.65-5.03) L 10/15/18 05:35 Hgb 6.4 gm/dl (10.1-14.3) L 10/15/18 05:35 Hct 19.7 % (30.3-42.9) L* 10/15/18 05:35 MCV 89 fl (79-97) 10/15/18 05:35 MCH 29 pg (28-32) 10/15/18 05:35 MCHC 32 % (30-34) 10/15/18 05:35 RDW 22.7 % (13.2-15.2) H 10/15/18 05:35 Plt Count 340 K/mm3 (140-440) 10/15/18 05:35 Lymph % (Auto) 13.9 % (13.4-35.0) 10/15/18 05:35 [place] % (Auto) 10.5 % (0.0-7.3) H 10/15/18 05:35 Eos % (Auto) 3.2 % (0.0-4.3) 10/15/18 05:35 Baso % (Auto) 0.8 % (0.0-1.8) 10/15/18 05:35 Lymph # 0.8 K/mm3 (1.2-5.4) L 10/15/18 05:35 [place] # 0.6 K/mm3 (0.0-0.8) 10/15/18 05:35 Eos # 0.2 K/mm3 (0.0-0.4) 10/15/18 05:35 Baso # 0.1 K/mm3 (0.0-0.1) 10/15/18 05:35 Seg Neutrophils % 71.6 % (40.0-70.0) H 10/15/18 05:35 Seg Neutrophils # 4.4 K/mm3 (1.8-7.7) 10/15/18 05:35 PT 14.2 Sec. (12.2-14.9) 10/14/18 16:18 INR 1.04 (0.87-1.13) 10/14/18 16:18 Sodium 138 mmol/L (137-145) 10/15/18 05:35 Potassium 4.2 mmol/L (3.6-5.0) 10/15/18 05:35 Chloride 97.3 mmol/L (98-107) L 10/15/18 05:35 Carbon Dioxide 23 mmol/L (22-30) 10/15/18 05:35 22 mmol/L 10/15/18 05:35 BUN 69 mg/dL (7-17) H 10/15/18 05:35 6.0 mg/dL (0.7-1.2) H 10/15/18 05:35 Estimated GFR 8 ml/min 10/15/18 05:35 12 % 10/15/18 05:35 Glucose 140 mg/dL (65-100) H 10/15/18 05:35 < 4.2 % (4-6) 10/14/18 20:51 Lactic Acid 1.40 mmol/L (0.7-2.0) 10/14/18 16:18 Calcium 8.2 mg/dL (8.4-10.2) L 10/15/18 05:35 Magnesium 2.20 mg/dL (1.7-2.3) 10/14/18 16:18 0.20 mg/dL (0.1-1.2) 10/15/18 05:35 AST 15 units/L (5-40) 10/15/18 05:35 ALT 7 units/L (7-56) 10/15/18 05:35 68 units/L (35-129) 10/15/18 05:35 108 units/L (30-135) 10/14/18 16:18 0.368 ng/mL (0.00-0.029) H* 10/14/18 16:18 5.7 g/dL (6.3-8.2) L 10/15/18 05:35 3.1 g/dL (3.9-5) L 10/15/18 05:35 1.2 % 10/15/18 05:35 Triglycerides 167 mg/dL (2-149) H 10/14/18 16:18 Cholesterol 135 mg/dL (50-199) 10/14/18 16:18 68 mg/dL (50-130) 10/14/18 16:18 37 mg/dL (40-59) L 10/14/18 16:18 3.64 % 10/14/18 16:18 Blood Type O POSITIVE 10/14/18 16:18 Antibody Screen Negative 10/14/18 16:18 ALYSSA Antibody Screen Negative 10/14/18 16:18 Short CBC 10/14/18 10/15/18 Range/Units 16:18 05:35 WBC 5.7 6.1 (4.5-11.0) K/mm3 Hgb 6.9 L 6.4 L (10.1-14.3) gm/dl Hct 21.6 L 19.7 L* (30.3-42.9) % Plt Count 371 340 (140-440) K/mm3 BMP 10/14/18 10/15/18 16:18 05:35 Sodium 136 L 138 Potassium 3.7 4.2 Chloride 96.6 L 97.3 L Carbon Dioxide 21 L 23 BUN 57 H 69 H Creatinine 4.3 H 6.0 H Glucose 140 H 140 H Calcium 8.3 L 8.2 L Cardiac Enzymes 10/14/18 10/14/18 Range/Units 16:18 16:18 Total Creatine Kinase 108 (30-135) units/L Troponin T 0.368 H* (0.00-0.029) ng/mL Liver Function 10/15/18 Range/Units 05:35 Total Bilirubin 0.20 (0.1-1.2) mg/dL AST 15 (5-40) units/L ALT 7 (7-56) units/L Alkaline Phosphatase 68 (35-129) units/L Albumin 3.1 L (3.9-5) g/dL - Imaging and Cardiology EKG: report reviewed Chest x-ray: report reviewed Imaging and Cardiology: CXR IMPRESSION: 1. No evidence of an acute pulmonary process. 2. Stable enlarged cardiac silhouette. 3. Probable atelectasis left lung base that appears to be decreased in the interval. This document is electronically signed by Candie Kim MD., Oct 14 2018 05:10:27 PM ET Assessment and Plan Advance Directives: Yes (Full code) VTE prophylaxis?: Chemical Plan of care discussed with patient/family: Yes - Patient Problems (1) ESRD (end stage renal disease) on dialysis Current Visit: Yes Status: Chronic Plan to address problem: Cont HD as per schedule (2) HTN (hypertension) Current Visit: Yes Status: Chronic Qualifiers: Hypertension type: essential hypertension Qualified Code(s): I10 - Essential (primary) hypertension Plan to address problem: Cont antihypertensives (3) Elevated troponin Current Visit: Yes Status: Chronic Plan to address problem: Sec to ESRD (4) IDDM (insulin dependent diabetes mellitus) Current Visit: Yes Status: Chronic Plan to address problem: Cont coverage and Home insulin Check A1c (5) GERD (gastroesophageal reflux disease) Current Visit: Yes Status: Chronic Qualifiers: Esophagitis presence: without esophagitis Qualified Code(s): K21.9 - Gastro-esophageal reflux disease without esophagitis Plan to address problem: On PPI's (6) Anemia Current Visit: Yes Status: Chronic Qualifiers: Anemia type: due to chronic kidney disease Plan to address problem: transfuse one unit PRBc (7) DVT prophylaxis Current Visit: Yes Status: Acute Plan to address problem: On Heparin and GI prophylaxis (8) Discharge planning issues Current Visit: Yes Status: Acute Plan to address problem: Patient lives in very poor hygienic conditions Case management consult requested Needs Placement
[2018-10-15] MEDS ORDERED: NACL 0.9% 500 ML 500 ML IV ONE ×2 (07:10→11:00)
[2018-10-15] MEDS ORDERED: IMDUR PO SCH (10:00)
[2018-10-15] MEDS: ZESTRIL PO SCH (10:00)
[2018-10-15] MEDS: PROTONIX PO SCH ×2 (10:00→21:25)
[2018-10-15] MEDS ORDERED: ZESTRIL PO SCH (10:00)
[2018-10-15] MEDS: IMDUR PO SCH (10:00)
[2018-10-15] MEDS: HEPARIN SUB-Q SCH ×2 (10:00→21:26)
[2018-10-15] MEDS: SODIUM CHLORIDE FLUSH SYRINGE 10 ML IV SCH ×2 (10:01→21:26)
[2018-10-15] MEDS: HumaLOG SUB-Q SCH ×4 (10:01→22:18)
--- NOTE | 2018-10-15 10:07 | Progress Note ---
Assessment and Plan Assessment and plan: Anemia. Transfuse 1 unit PRBC Check FE, TIBC, Ferritin, stool occult blood ESRD on dialysis. Nephrology consulted Hypertension Monitor BP Failure to thrive. Medical records stated fallon found home in squalid conditions. consult case management/rn social services Full code status History Interval history: Gen weakness leg pains Brought in from squalid, unclean home conditions Hospitalist Physical - Physical exam Narrative exam: Gen: Not in acute distress, lying in bed HEENT: Normocephalic, atraumatic Neck: supple, no JVD Heart: S1 and S2 reg, no murmurs, rubs or gallop Lungs: Clear, no crackles, no wheeze Abd: soft, non tender, non distended, normal BS Ext: No edema, no clubbing, no cyanosis, Neuro: Awake,alert, oriented x 3, moves all ext, non focal Psych:Normal mood - Constitutional Vitals: Temp Pulse Resp BP Pulse Ox 98.9 F 91 H 18 128/62 98 10/15/18 08:04 10/15/18 08:08 10/15/18 08:22 10/15/18 08:04 10/15/18 08:08 General appearance: Present: no acute distress, well-nourished Results - Labs CBC & Chem 7: 10/15/18 05:35 10/15/18 05:35 Labs: Laboratory Last Values WBC 6.1 K/mm3 (4.5-11.0) 10/15/18 05:35 RBC 2.20 M/mm3 (3.65-5.03) L 10/15/18 05:35 Hgb 6.4 gm/dl (10.1-14.3) L 10/15/18 05:35 Hct 19.7 % (30.3-42.9) L* 10/15/18 05:35 MCV 89 fl (79-97) 10/15/18 05:35 MCH 29 pg (28-32) 10/15/18 05:35 MCHC 32 % (30-34) 10/15/18 05:35 RDW 22.7 % (13.2-15.2) H 10/15/18 05:35 Plt Count 340 K/mm3 (140-440) 10/15/18 05:35 Lymph % (Auto) 13.9 % (13.4-35.0) 10/15/18 05:35 [place] % (Auto) 10.5 % (0.0-7.3) H 10/15/18 05:35 Eos % (Auto) 3.2 % (0.0-4.3) 10/15/18 05:35 Baso % (Auto) 0.8 % (0.0-1.8) 10/15/18 05:35 Lymph # 0.8 K/mm3 (1.2-5.4) L 10/15/18 05:35 [place] # 0.6 K/mm3 (0.0-0.8) 10/15/18 05:35 Eos # 0.2 K/mm3 (0.0-0.4) 10/15/18 05:35 Baso # 0.1 K/mm3 (0.0-0.1) 10/15/18 05:35 Seg Neutrophils % 71.6 % (40.0-70.0) H 10/15/18 05:35 Seg Neutrophils # 4.4 K/mm3 (1.8-7.7) 10/15/18 05:35 PT 14.2 Sec. (12.2-14.9) 10/14/18 16:18 INR 1.04 (0.87-1.13) 10/14/18 16:18 Sodium 138 mmol/L (137-145) 10/15/18 05:35 Potassium 4.2 mmol/L (3.6-5.0) 10/15/18 05:35 Chloride 97.3 mmol/L (98-107) L 10/15/18 05:35 Carbon Dioxide 23 mmol/L (22-30) 10/15/18 05:35 22 mmol/L 10/15/18 05:35 BUN 69 mg/dL (7-17) H 10/15/18 05:35 6.0 mg/dL (0.7-1.2) H 10/15/18 05:35 Estimated GFR 8 ml/min 10/15/18 05:35 12 % 10/15/18 05:35 Glucose 140 mg/dL (65-100) H 10/15/18 05:35 POC Glucose 220 (70-105) H 10/15/18 08:29 < 4.2 % (4-6) 10/14/18 20:51 Lactic Acid 1.40 mmol/L (0.7-2.0) 10/14/18 16:18 Calcium 8.2 mg/dL (8.4-10.2) L 10/15/18 05:35 Magnesium 2.20 mg/dL (1.7-2.3) 10/14/18 16:18 0.20 mg/dL (0.1-1.2) 10/15/18 05:35 AST 15 units/L (5-40) 10/15/18 05:35 ALT 7 units/L (7-56) 10/15/18 05:35 68 units/L (35-129) 10/15/18 05:35 108 units/L (30-135) 10/14/18 16:18 0.368 ng/mL (0.00-0.029) H* 10/14/18 16:18 5.7 g/dL (6.3-8.2) L 10/15/18 05:35 3.1 g/dL (3.9-5) L 10/15/18 05:35 1.2 % 10/15/18 05:35 Triglycerides 167 mg/dL (2-149) H 10/14/18 16:18 Cholesterol 135 mg/dL (50-199) 10/14/18 16:18 68 mg/dL (50-130) 10/14/18 16:18 37 mg/dL (40-59) L 10/14/18 16:18 3.64 % 10/14/18 16:18 Blood Type O POSITIVE 10/14/18 16:18 Antibody Screen Negative 10/14/18 16:18 ALYSSA Antibody Screen Negative 10/14/18 16:18 Crossmatch See Detail 10/14/18 16:18 Active Medications - Current Medications Current Medications: Generic Name Dose Route Start Last Admin Trade Name Freq PRN Reason Stop Dose Admin Acetaminophen 650 mg 10/14/18 20:41 Tylenol PO Q4H PRN Pain MILD(1-3)/Fever >100.5/PEREZ Heparin Sodium (Porcine) 5,000 unit 10/14/18 22:00 10/14/18 22:02 Heparin SUB-Q 5,000 unit Q12HR [facility] Administration Insulin Human Lispro 0 unit 10/15/18 07:30 Humalog SUB-Q ACHS [facility] Protocol Isosorbide Mononitrate 30 mg 10/15/18 10:00 Imdur PO DAILY [facility] Lisinopril 5 mg 10/15/18 10:00 Zestril PO QDAY [facility] Morphine Sulfate 2 mg 10/14/18 20:41 10/14/18 22:51 Morphine IV 2 mg Q4H PRN Administration Pain, Moderate (4-6) Ondansetron HCl 4 mg 10/14/18 20:41 Zofran IV Q8H PRN Nausea And Vomiting Oxycodone/Acetaminophen 1 tab 10/14/18 20:41 Percocet 5/325 PO Q6H PRN Pain, Moderate (4-6) Pantoprazole Sodium 40 mg 10/14/18 22:00 10/14/18 22:02 Protonix PO 40 mg BID [facility]TO Administration Sodium Chloride 10 ml 10/14/18 22:00 Sodium Chloride Flush Syringe 10 Ml IV BID [facility] Sodium Chloride 10 ml 10/14/18 20:41 Sodium Chloride Flush Syringe 10 Ml IV PRN PRN LINE FLUSH Nutrition/Malnutrition Assess - Dietary Evaluation Nutrition/Malnutrition Findings: Nutrition Notes Start: 10/15/18 10:02 Freq: Status: Active Protocol: Document 10/15/18 10:02 LP (Rec: 10/15/18 10:05 LP [id number]) Nutrition Notes Need for Assessment generated from: property caretaker Initial or Follow up Brief Note Current Diagnosis CKD (stage V CKD),Diabetes, Hypertension Other Pertinent Diagnosis on HD Current Diet Renal Subjective/Other Information Screen for yessenia, no yessenia avaliable. Pt states eating well and wants ONS. Nutrition Intervention Add Supplement/Snack (indicate name/kcal Nepro vanilla TID /protein ) Provides kCal: 1,275 Provides Protein (gm) 57 Follow-Up By: 10/18/18 Additional Comments Follow for stable intakes
--- NOTE | 2018-10-15 11:48 | Consultation ---
History of Present Illness - Reason for Consult Consult date: 10/15/18 end stage renal disease Requesting physician: YONAS GUEVARA - History of Present Illness 67-year-old female brought to the hospital by EMS for a sick call. As per verbal report from EMS, patient was found at home, with reported squalid living conditions. Apparently, the patient's living quarters were found to be very unclean, and the patient was reportedly found sitting on a front porch and an iron chair, with refuse in front of her. We do not know who contacted 911. The patient complains of general weakness. She cannot recall the name of her primary care doctor or her private principal statistical scientist. She complains of a headache. She thinks it started today. She indicates it is global. She is not able to describe the quality of nature of the headache, exacerbating or relieving factors. She has chronic lower extremity swelling and pain and discomfort. She reports that she would like to eat. She denies chest pain. Review of dialysis records indicated that she had partial dialysis yesterday. She undergoes dialysis on TTS schedule at [facility] under our care Past History Past Medical History: diabetes, dialysis, hypertension Past Surgical History: Other (history of creation of AV fistula) Social history: other (denies smoking or drinking) Family history: no significant family history Medications and Allergies Allergies Allergy/AdvReac Type Severity Reaction Status Date / Time erythromycin base Allergy Rash Verified 09/05/18 14:03 [Erythromycin Base] Home Medications Medication Instructions Recorded Confirmed Last Taken Type Ferric Citrate (Nf) [Auryxia] 630 mg PO TIDWM 09/05/18 09/05/18 Unknown History Furosemide [Lasix TAB] 80 mg PO QDAY PRN 09/05/18 09/05/18 Unknown History Raloxifene HCl [Evista] 60 mg PO QDAY 09/05/18 09/05/18 Unknown History Insulin Regular, Human [HumuLIN R] 0 unit SQ AC #1 vial 09/07/18 Unknown Rx Pantoprazole [Protonix TAB] 40 mg PO BID #60 tablet 10/03/18 Unknown Rx ISOSORBIDE MONOnitrate [Imdur ER] 30 mg PO QDAY #30 tablet 10/04/18 Unknown Rx Lisinopril [Zestril TAB] 5 mg PO DAILY #30 tablet 10/04/18 Unknown Rx Active Meds: Active Medications Acetaminophen (Tylenol) 650 mg PO Q4H PRN PRN Reason: Pain MILD(1-3)/Fever >100.5/PEREZ Heparin Sodium (Porcine) (Heparin) 5,000 unit SUB-Q Q12HR [facility] Last Admin: 10/15/18 10:00 Dose: 5,000 unit Documented by: Insulin Human Lispro (Humalog) 0 unit SUB-Q ACHS [facility]; Protocol Last Admin: 10/15/18 10:01 Dose: 3 unit Documented by: Isosorbide Mononitrate (Imdur) 30 mg PO DAILY [facility] Last Admin: 10/15/18 10:00 Dose: 30 mg Documented by: Lisinopril (Zestril) 5 mg PO QDAY [facility] Last Admin: 10/15/18 10:00 Dose: 5 mg Documented by: Morphine Sulfate (Morphine) 2 mg IV Q4H PRN PRN Reason: Pain, Moderate (4-6) Last Admin: 10/14/18 22:51 Dose: 2 mg Documented by: Ondansetron HCl (Zofran) 4 mg IV Q8H PRN PRN Reason: Nausea And Vomiting Oxycodone/Acetaminophen (Percocet 5/325) 1 tab PO Q6H PRN PRN Reason: Pain, Moderate (4-6) Pantoprazole Sodium (Protonix) 40 mg PO BID [facility] Last Admin: 10/15/18 10:00 Dose: 40 mg Documented by: Sodium Chloride (Sodium Chloride Flush Syringe 10 Ml) 10 ml IV BID [facility] Last Admin: 10/15/18 10:01 Dose: 10 ml Documented by: Sodium Chloride (Sodium Chloride Flush Syringe 10 Ml) 10 ml IV PRN PRN PRN Reason: LINE FLUSH Review of Systems All systems: negative (as noted above) Exam - Vital Signs Vital signs: Vital Signs BP Pulse Ox 108/64 100 10/14/18 15:51 10/14/18 15:51 - General Appearance General appearance: chronically ill, frail EENT: PERRL, mucous membranes moist Neck: Present: neck supple, trachea midline. Absent: JVD/HJR, Masses Respiratory: Clear to Ascultation Heart: regular, normal heart rate, S1S2, no murmurs Gastrointestinal: Present: normal, normoactive bowel sounds Integumentary: other (AV graft in the left upper arm. Good bruit and thrill. Trace to 1+ edema in her lower extremities) Results - Lab Results 10/15/18 05:35 10/15/18 05:35 Most recent lab results Calcium 8.2 mg/dL (8.4-10.2) L 10/15/18 05:35 Magnesium 2.20 mg/dL (1.7-2.3) 10/14/18 16:18 Assessment and Plan Impression * End-stage renal disease on maintenance hemodialysis * Altered mental status * Hypertension * Diabetes * Severe Anemia Recommendations * No urgent indication for dialysis today * Keep her on maintenance dialysis on TTS schedule as outpatient * Transfuse packed RBC as needed * Hold phosphate binders for now * Consider GI evaluation * Avoid nephrotoxins * Monitor fluid status and electrolytes closely * Adjust diet and meds for ESRD state * No IV, BP of venipuncture access arm * Procrit with dialysis * Thank you very much for the consultation. Shall follow along with you
--- NOTE | 2018-10-15 15:04 | Vascular Lab Report ---
PROCEDURE: VL VENOUS DUPLEX LE BILAT HISTORY: pain both legs FINDINGS: Real-time ultrasound of the right leg and left leg was performed using grayscale and color Doppler images. These images demonstrate no evidence of deep venous thrombus in the right or left common femoral vein , superficial femoral vein, popliteal vein or posterior tibial vein. IMPRESSION: No DVT in either leg This document is electronically signed by Ever Kumar MD., Oct 15 2018 03:01:51 PM ET
[2018-10-15 17:22] LABS: Hematocrit 23.7 % (30.3-42.9); Hemoglobin 7.8 gm/dl (10.1-14.3)
[2018-10-15 17:39] LABS: Iron 63 ug/dL (37-170); Total Iron Binding Capacity 219 mcg/dL (250-450)
[2018-10-16] MEDS: PERCOCET 5/325 PO PRN ×2 (05:07→16:38)
[2018-10-16 09:32] LABS: Basophils % (Auto) 0.3 % (0.0-1.8); Eosinophils # (Auto) 0.2 K/mm3 (0.0-0.4); Eosinophils % (Auto) 2.7 % (0.0-4.3); Hematocrit 24.6 % (30.3-42.9); Hemoglobin 8.1 gm/dl (10.1-14.3); Lymphocytes # (Auto) 0.6 K/mm3 (1.2-5.4); Mean Corpuscular HGB Conc 33 % (30-34); Mean Corpuscular Volume 88 fl (79-97); Monocytes # (Auto) 0.5 K/mm3 (0.0-0.8); Monocytes % (Auto) 6.4 % (0.0-7.3); Platelet Count 328 K/mm3 (140-440); Red Blood Count 2.78 M/mm3 (3.65-5.03); Red Cell Distribution Width 22.1 % (13.2-15.2)
[2018-10-16 09:42] LABS: Calcium 8.1 mg/dL (8.4-10.2)
--- NOTE | 2018-10-16 09:59 | Progress Note ---
Assessment and Plan Assessment and plan: Anemia. Transfused 1 unit PRBC Review of records reveal she had EGD and colonoscopy 2 weeks ago on 10/03/18, revealed gastric ulcer, duedenitis, hemorrhoids Conyt Protonix. Follow up with GI as outpatient. ESRD on dialysis. Nephrology consulted Hypertension Monitor BP Failure to thrive. Medical records stated she was found home in squalid conditions. consult case management/social science teacher Full code status Addendum: manager mobility says can dc home. Will dc home. Ok with Nephrology. History Interval history: Gen weakness leg pains Brought in from squalid, unclean home conditions Hospitalist Physical - Physical exam Narrative exam: Gen: Not in acute distress, lying in bed HEENT: Normocephalic, atraumatic Neck: supple, no JVD Heart: S1 and S2 reg, no murmurs, rubs or gallop Lungs: Clear, no crackles, no wheeze Abd: soft, non tender, non distended, normal BS Ext: No edema, no clubbing, no cyanosis, Neuro: Awake,alert, oriented x 3, moves all ext, non focal Psych:Normal mood - Constitutional Vitals: Temp Pulse Resp BP Pulse Ox 97.6 F 82 20 163/55 98 10/16/18 01:36 10/16/18 01:36 10/16/18 01:36 10/16/18 01:36 10/16/18 01:36 General appearance: Present: no acute distress, well-nourished Results - Labs CBC & Chem 7: 10/16/18 08:59 10/16/18 08:59 Labs: Laboratory Last Values WBC 8.1 K/mm3 (4.5-11.0) 10/16/18 08:59 RBC 2.78 M/mm3 (3.65-5.03) L 10/16/18 08:59 Hgb 8.1 gm/dl (10.1-14.3) L 10/16/18 08:59 Hct 24.6 % (30.3-42.9) L 10/16/18 08:59 MCV 88 fl (79-97) 10/16/18 08:59 MCH 29 pg (28-32) 10/16/18 08:59 MCHC 33 % (30-34) 10/16/18 08:59 RDW 22.1 % (13.2-15.2) H 10/16/18 08:59 Plt Count 328 K/mm3 (140-440) 10/16/18 08:59 Lymph % (Auto) 7.0 % (13.4-35.0) L 10/16/18 08:59 [place] % (Auto) 6.4 % (0.0-7.3) 10/16/18 08:59 Eos % (Auto) 2.7 % (0.0-4.3) 10/16/18 08:59 Baso % (Auto) 0.3 % (0.0-1.8) 10/16/18 08:59 Lymph # 0.6 K/mm3 (1.2-5.4) L 10/16/18 08:59 [place] # 0.5 K/mm3 (0.0-0.8) 10/16/18 08:59 Eos # 0.2 K/mm3 (0.0-0.4) 10/16/18 08:59 Baso # 0.0 K/mm3 (0.0-0.1) 10/16/18 08:59 Seg Neutrophils % 83.6 % (40.0-70.0) H 10/16/18 08:59 Seg Neutrophils # 6.8 K/mm3 (1.8-7.7) 10/16/18 08:59 PT 14.2 Sec. (12.2-14.9) 10/14/18 16:18 INR 1.04 (0.87-1.13) 10/14/18 16:18 Sodium 135 mmol/L (137-145) L 10/16/18 08:59 Potassium 5.1 mmol/L (3.6-5.0) H D 10/16/18 08:59 Chloride 94.3 mmol/L (98-107) L 10/16/18 08:59 Carbon Dioxide 21 mmol/L (22-30) L 10/16/18 08:59 25 mmol/L 10/16/18 08:59 BUN 85 mg/dL (7-17) H 10/16/18 08:59 7.8 mg/dL (0.7-1.2) H 10/16/18 08:59 Estimated GFR 6 ml/min 10/16/18 08:59 11 % 10/16/18 08:59 Glucose 151 mg/dL (65-100) H 10/16/18 08:59 POC Glucose 168 (70-105) H 10/16/18 07:59 < 4.2 % (4-6) 10/14/18 20:51 Lactic Acid 1.40 mmol/L (0.7-2.0) 10/14/18 16:18 Calcium 8.1 mg/dL (8.4-10.2) L 10/16/18 08:59 Magnesium 2.20 mg/dL (1.7-2.3) 10/14/18 16:18 Iron 63 ug/dL (37-170) 10/15/18 16:45 TIBC 219 mcg/dL (250-450) L 10/15/18 16:45 217.4 ng/mL (13.0-400.0) 10/15/18 16:45 0.20 mg/dL (0.1-1.2) 10/15/18 05:35 AST 15 units/L (5-40) 10/15/18 05:35 ALT 7 units/L (7-56) 10/15/18 05:35 68 units/L (35-129) 10/15/18 05:35 108 units/L (30-135) 10/14/18 16:18 0.368 ng/mL (0.00-0.029) H* 10/14/18 16:18 5.7 g/dL (6.3-8.2) L 10/15/18 05:35 3.1 g/dL (3.9-5) L 10/15/18 05:35 1.2 % 10/15/18 05:35 Triglycerides 167 mg/dL (2-149) H 10/14/18 16:18 Cholesterol 135 mg/dL (50-199) 10/14/18 16:18 68 mg/dL (50-130) 10/14/18 16:18 37 mg/dL (40-59) L 10/14/18 16:18 3.64 % 10/14/18 16:18 Blood Type O POSITIVE 10/14/18 16:18 Antibody Screen Negative 10/14/18 16:18 ALYSSA Antibody Screen Negative 10/14/18 16:18 Crossmatch See Detail 10/14/18 16:18 Active Medications - Current Medications Current Medications: Generic Name Dose Route Start Last Admin Trade Name Freq PRN Reason Stop Dose Admin Acetaminophen 650 mg 10/14/18 20:41 Tylenol PO Q4H PRN Pain MILD(1-3)/Fever >100.5/PEREZ Heparin Sodium (Porcine) 5,000 unit 10/14/18 22:00 10/15/18 21:26 Heparin SUB-Q 5,000 unit Q12HR CALIXTO Administration Insulin Human Lispro 0 unit 10/15/18 07:30 10/15/18 22:18 Humalog SUB-Q 3 unit ACHS CALIXTO Administration Protocol Isosorbide Mononitrate 30 mg 10/15/18 10:00 10/15/18 10:00 Imdur PO 30 mg DAILY CALIXTO Administration Lisinopril 5 mg 10/15/18 10:00 10/15/18 10:00 Zestril PO 5 mg QDAY CALIXTO Administration Morphine Sulfate 2 mg 10/14/18 20:41 10/14/18 22:51 Morphine IV 2 mg Q4H PRN Administration Pain, Moderate (4-6) Ondansetron HCl 4 mg 10/14/18 20:41 10/16/18 05:04 Zofran IV 4 mg Q8H PRN Administration Nausea And Vomiting Oxycodone/Acetaminophen 1 tab 10/14/18 20:41 10/16/18 05:07 Percocet 5/325 PO 1 tab Q6H PRN Administration Pain, Moderate (4-6) Pantoprazole Sodium 40 mg 10/14/18 22:00 10/15/18 21:25 Protonix PO 40 mg BID CALIXTO Administration Sodium Chloride 10 ml 10/14/18 22:00 10/15/18 21:26 Sodium Chloride Flush Syringe 10 Ml IV 10 ml BID CALIXTO Administration Sodium Chloride 10 ml 10/14/18 20:41 Sodium Chloride Flush Syringe 10 Ml IV PRN PRN LINE FLUSH Nutrition/Malnutrition Assess - Dietary Evaluation Nutrition/Malnutrition Findings: Nutrition Notes Start: 10/15/18 10:02 Freq: Status: Active Protocol: Document 10/15/18 10:02 LP (Rec: 10/15/18 10:05 LP [id number]) Nutrition Notes Need for Assessment generated from: account representative Initial or Follow up Brief Note Current Diagnosis CKD (stage V CKD),Diabetes, Hypertension Other Pertinent Diagnosis on HD Current Diet Renal Subjective/Other Information Screen for yessenia, no yessenia avaliable. Pt states eating well and wants ONS. Nutrition Intervention Add Supplement/Snack (indicate name/kcal Nepro vanilla TID /protein ) Provides kCal: 1,275 Provides Protein (gm) 57 Follow-Up By: 10/18/18 Additional Comments Follow for stable intakes
[2018-10-16] MEDS: HEPARIN SUB-Q SCH ×2 (10:41→21:36)
[2018-10-16] MEDS: SODIUM CHLORIDE FLUSH SYRINGE 10 ML IV SCH ×2 (10:41→21:36)
[2018-10-16] MEDS: PROTONIX PO SCH ×2 (10:41→21:36)
[2018-10-16] MEDS: ZESTRIL PO SCH (10:42)
[2018-10-16] MEDS: IMDUR PO SCH (10:42)
[2018-10-16] MEDS: HumaLOG SUB-Q SCH ×4 (10:43→22:26)
[2018-10-16] MEDS ORDERED: NACL 0.9% 100 ML IV PRN (11:06)
[2018-10-16] MEDS ORDERED: PROCRIT IV PRN (11:06)
--- NOTE | 2018-10-16 11:23 | Progress Note ---
Assessment and Plan Impression * End-stage renal disease on maintenance hemodialysis * Altered mental status * Hypertension * Diabetes * Severe Anemia * Hyperkalemia Recommendations * Patient's potassium is rising and her BUN is also noted to be high at 85. * Dialysis records reviewed. She had partial treatment the last 2 treatments. * Schedule her for dialysis today and keep her on abdominal schedule for now. * Her outpatient dialysis days are however TTS * Transfuse packed RBC as needed * Hold phosphate binders for now * Consider GI evaluation * Avoid nephrotoxins * Monitor fluid status and electrolytes closely * Adjust diet and meds for ESRD state * No IV, BP of venipuncture access arm * Procrit with dialysis Subjective Date of service: 10/16/18 Interval history: Patient is comfortable today. Denies any shortness of breath. No nausea or vomiting. Received 1 unit of packed RBC yesterday Objective - Vital Signs Vital signs: Vital Signs - 12hr 10/16/18 10/16/18 01:36 10:42 Temperature 97.6 F Pulse Rate 82 Respiratory 20 Rate Blood Pressure 163/55 155/60 O2 Sat by Pulse 98 Oximetry - General Appearance General appearance: chronically ill, frail EENT: PERRL, mucous membranes moist Neck: no JVD, no thyromegaly, no carotid bruit, supple Respiratory: Present: Clear to Ascultation Cardiology: regular, normal heart rate, S1S2, no murmurs Gastrointestinal: normal, normoactive bowel sounds Integumentary: no rash, other (1+ edema. AV fistula in her left upper arm. Good bruit and thrill.) - Lab 10/16/18 08:59 10/16/18 08:59 Most recent lab results Calcium 8.1 mg/dL (8.4-10.2) L 10/16/18 08:59 Magnesium 2.20 mg/dL (1.7-2.3) 10/14/18 16:18 Medications & Allergies - Medications Allergies/Adverse Reactions: Allergies erythromycin base [Erythromycin Base] Allergy (Verified 09/05/18 14:03) Rash PATIENT ASK ME TO REMOVEDMED ON ALLERGY LIST. Home Medications: Home Medications Medication Instructions Recorded Confirmed Last Taken Type Ferric Citrate (Nf) [Auryxia] 630 mg PO TIDWM 09/05/18 09/05/18 Unknown History Furosemide [Lasix TAB] 80 mg PO QDAY PRN 09/05/18 09/05/18 Unknown History Raloxifene HCl [Evista] 60 mg PO QDAY 09/05/18 09/05/18 Unknown History Insulin Regular, Human [HumuLIN R] 0 unit SQ AC #1 vial 09/07/18 Unknown Rx Pantoprazole [Protonix TAB] 40 mg PO BID #60 tablet 10/03/18 Unknown Rx ISOSORBIDE MONOnitrate [Imdur ER] 30 mg PO QDAY #30 tablet 10/04/18 Unknown Rx Lisinopril [Zestril TAB] 5 mg PO DAILY #30 tablet 10/04/18 Unknown Rx Active Medications: Generic Name Dose Route Start Last Admin Trade Name Freq PRN Reason Stop Dose Admin Acetaminophen 650 mg 10/14/18 20:41 10/16/18 10:41 Tylenol PO 650 mg Q4H PRN Administration Pain MILD(1-3)/Fever >100.5/PEREZ Epoetin Khurram 10,000 unit 10/16/18 11:06 Procrit IV ANTOINETTE PRN hemodialysis Heparin Sodium (Porcine) 5,000 unit 10/14/18 22:00 10/16/18 10:41 Heparin SUB-Q 5,000 unit Q12HR CALIXTO Administration Sodium Chloride 100 mls @ 999 mls/hr 10/16/18 11:06 Nacl 0.9% IV ANTOINETTE PRN Hypotension Insulin Human Lispro 0 unit 10/15/18 07:30 10/16/18 10:43 Humalog SUB-Q 2 unit ACHS CALIXTO Administration Protocol Isosorbide Mononitrate 30 mg 10/15/18 10:00 10/16/18 10:42 Imdur PO 30 mg DAILY CALIXTO Administration Lisinopril 5 mg 10/15/18 10:00 10/16/18 10:42 Zestril PO 5 mg QDAY CALIXTO Administration Morphine Sulfate 2 mg 10/14/18 20:41 10/14/18 22:51 Morphine IV 2 mg Q4H PRN Administration Pain, Moderate (4-6) Ondansetron HCl 4 mg 10/14/18 20:41 10/16/18 05:04 Zofran IV 4 mg Q8H PRN Administration Nausea And Vomiting Oxycodone/Acetaminophen 1 tab 10/14/18 20:41 10/16/18 05:07 Percocet 5/325 PO 1 tab Q6H PRN Administration Pain, Moderate (4-6) Pantoprazole Sodium 40 mg 10/14/18 22:00 10/16/18 10:41 Protonix PO 40 mg BID CALIXTO Administration Sodium Chloride 10 ml 10/14/18 22:00 10/16/18 10:41 Sodium Chloride Flush Syringe 10 Ml IV 10 ml BID CALIXTO Administration Sodium Chloride 10 ml 10/14/18 20:41 Sodium Chloride Flush Syringe 10 Ml IV PRN PRN LINE FLUSH
[2018-10-16] MEDS ORDERED: NACL 0.9 (PRIMING MACHINE ONLY DIALYSIS) MC ONE (12:26)
[2018-10-16] MEDS ORDERED: MIRALAX 3350 PO PRN (12:57)
--- NOTE | 2018-10-16 16:03 | Discharge Summary ---
Providers - Providers Date of Admission: 10/14/18 20:41 Date of discharge: 10/16/18 Attending physician: YONAS LAWRENCE 10/14/18 16:13 Consult to Physician [CONS] Urgent Comment: Dr. Khan spoke with Dr. Lora @ [id number] Consulting Provider: RODRIGO RICARDO Physician Instructions: Reason For Exam: esrd 10/14/18 16:14 Consult to Case Management [CONS] Urgent Services Needed at Discharge: Street Railway Line Installer Notified:: yes , Arelis Self contacted 10/14/18 20:50 Consult to Case Management [CONS] Routine Services Needed at Discharge: Home Health Services Notified:: SHAHID Heath Physician Instructions: Needs replacement 10/15/18 20:24 Consult to Dietitian/Nutrition [CONS] Routine Physician Instructions: Reason For Exam: malnutrition Reason for Consult: Nutrition Recommendations Reason for Consult: Malnutrition Primary care physician: FROYLAN ARREGUIN Hospitalization Condition: Fair Disposition: DC-01 TO HOME OR SELFCARE Core Measure Documentation - Palliative Care Palliative Care/ Comfort Measures: Not Applicable - Core Measures Any of the following diagnoses?: none Exam - Constitutional Vitals: Temp Pulse Resp BP Pulse Ox 98.0 F 80 18 150/60 99 10/16/18 15:20 10/16/18 15:20 10/16/18 15:20 10/16/18 15:20 10/16/18 07:56 Plan Activity: advance as tolerated Diet: low fat, low cholesterol, low salt, diabetic, renal Additional Instructions: 1.Follow up with PCP in 1 week. 2.Follow up with CELINA Escalera in 2-3 days. 3.Continue routine hemodialysis Follow up with: PRIMARY CAREMD [Referring] - 3-5 Days
--- NOTE | 2018-10-16 18:08 | Event Note ---
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
[2018-10-16] MEDS ORDERED: BENADRYL PO PRN (23:18)
[2018-10-17 05:33] LABS: Basophils % (Auto) 0.8 % (0.0-1.8); Eosinophils # (Auto) 0.2 K/mm3 (0.0-0.4); Eosinophils % (Auto) 2.4 % (0.0-4.3); Hematocrit 24.8 % (30.3-42.9); Hemoglobin 8.4 gm/dl (10.1-14.3); Lymphocytes # (Auto) 0.8 K/mm3 (1.2-5.4); Lymphocytes % (Auto) 12.5 % (13.4-35.0); Mean Corpuscular HGB Conc 34 % (30-34); Mean Corpuscular Volume 89 fl (79-97); Monocytes # (Auto) 0.6 K/mm3 (0.0-0.8); Monocytes % (Auto) 9.4 % (0.0-7.3); Platelet Count 323 K/mm3 (140-440); Red Blood Count 2.79 M/mm3 (3.65-5.03)
[2018-10-17 05:36] LABS: Red Cell Distribution Width 21.9 % (13.2-15.2)
[2018-10-17 05:54] LABS: Calcium 8.6 mg/dL (8.4-10.2)
[2018-10-17] MEDS: HumaLOG SUB-Q SCH ×2 (09:00→12:30)
--- NOTE | 2018-10-17 09:28 | Discharge Summary ---
Providers - Providers Date of Admission: 10/14/18 20:41 Attending physician: MARILYN HASSAN MD 10/14/18 16:13 Consult to Physician [CONS] Urgent Comment: Dr. Khan spoke with Dr. Lora @ [phone] Consulting Provider: RODRIGO RICARDO Physician Instructions: Reason For Exam: esrd 10/14/18 16:14 Consult to Case Management [CONS] Urgent Services Needed at Discharge: Wood Stock Blank Handler Notified:: yes , Arelis Self contacted 10/14/18 20:50 Consult to Case Management [CONS] Routine Services Needed at Discharge: Home Health Services Notified:: SHAHID Additional Physician Instructions: Needs replacement 10/15/18 20:24 Consult to Dietitian/Nutrition [CONS] Routine Physician Instructions: Reason For Exam: malnutrition Reason for Consult: Nutrition Recommendations Reason for Consult: Malnutrition Primary care physician: FROYLAN ARREGUIN Hospitalization Reason for admission: Encephalopathy Condition: Stable Hospital course: 67-year-old female brought to the hospital by EMS for a sick call. As per verbal report from EMS, patient was found at home, with reported squalid living conditions. Apparently, the patient's living quarters were found to be very unclean, and the patient was reportedly found sitting on a front porch and an iron chair, with refuse in front of her. We do not know who contacted 911. The patient complains of general weakness. She cannot recall the name of her primary care doctor or her private pantomimist. She complains of a headache. She thinks it started today. She indicates it is global. She is not able to describe the quality of nature of the headache, exacerbating or relieving factors. She has chronic lower extremity swelling and pain and discomfort. She reports that she would like to eat. She denies chest pain.The patient states she walks at home with a cane and sometimes a walker. she underwent HD when she was admitted with correction of electrolytes. she also required transfusion of 1 PRBC PER CASE MANAGEMENT Patient, shared when d/c she will return to her previous arrangement but will later transition to a [facility] Apartment Setting: [place] address: [address] [place] [address]. Patient, also shared she is open to services when d/c if recommended by medical staff. It appears the patient had some altered sensorium on admission, which improved as she was planned for discharge yesterday. Patients daughter was also spoken to and she said her mother makes decisions for herself. Patient is back to her baseline mental status. After discussing with the patient, she informs me that she was never confused that she had just returned from dialysis and felt that she was out of breath the dialysis catering truck driver probably call the ambulance she is not sure. She stated that when the ambulance arrived that she had told him she was hungry and that whenever she is hungry and mental status are not always accurate, her blood sugar was not low off too high on admission.. She also reaffirms with the case therapist documents that [facility] [place] [facility] [facility] and that this will happen today. She is already tried it about her younger daughter who she states his employer has come and assisted her. She just needs to put a few more things storage. Discharge Diagnosis Acute metabolic Encephalopathy - RESOLVED Acute Blood loss Anemia. Transfused 1 unit PRBC Review of records reveal she had EGD and colonoscopy 2 weeks ago on 10/03/18, revealed gastric ulcer, duedenitis, hemorrhoids Conyt Protonix. Follow up with GI as outpatient. ESRD on dialysis. Nephrology consulted Hypertension Monitor BP Type 2 NSTEMI-likely secondary to ESRD. Still recommend outpatient Cardiology work up Hyperkalemia -Corrected Moderate Protein Calorie Malnutrition -Secondary to renal disease DM Disposition: DC/TX-06 HOME UNDER HOME HLTH Time spent for discharge: 35 MINS Core Measure Documentation - Palliative Care Palliative Care/ Comfort Measures: Not Applicable - Core Measures Any of the following diagnoses?: none Exam - Physical Exam Narrative exam: Gen: Not in acute distress, sitting up at bedside HEENT: Normocephalic, atraumatic Neck: supple, no JVD Heart: S1 and S2 reg, no murmurs, rubs or gallop Lungs: Clear, no crackles, no wheeze Abd: soft, non tender, non distended, normal BS Ext: No edema, no clubbing, no cyanosis, Neuro: Awake,alert, oriented x 3, moves all ext, non focal Psych:Normal mood SKIN: CHRONIC CHANGES - Constitutional Vitals: Temp Pulse Resp BP Pulse Ox 100.0 F H 90 18 124/58 96 10/17/18 07:27 10/17/18 07:27 10/17/18 07:27 10/17/18 07:27 10/17/18 07:27 Plan Activity: advance as tolerated, fall precautions Diet: renal Special Instructions: record daily BP diary Follow up with: JULITO LORA MD [Staff Physician] - 7 Days PRIMARY CARE, [Referring] - 3-5 Days FROYLAN ARREGUIN MD [Primary Care Provider] - 7 Days CONSTANCE MOLINA MD [Staff Physician] - 7 Days
[2018-10-17] MEDS: HEPARIN SUB-Q SCH (10:01)
[2018-10-17] MEDS: IMDUR PO SCH (10:01)
[2018-10-17] MEDS: PROTONIX PO SCH (10:01)
--- NOTE | 2018-10-17 10:01 | Progress Note ---
Assessment and Plan Impression * End-stage renal disease on maintenance hemodialysis * Altered mental status * Hypertension * Diabetes * Severe Anemia * Hyperkalemia Recommendations * continue hd qMWF * Her outpatient dialysis days are however TTS * Transfuse packed RBC as needed * Hold phosphate binders for now * Consider GI evaluation * Avoid nephrotoxins * Monitor fluid status and electrolytes closely * Adjust diet and meds for ESRD state * No IV, BP of venipuncture access arm * Procrit with dialysis * ok to dc from renal standpoint Subjective Date of service: 10/17/18 Principal diagnosis: esrd Interval history: resting well in bed today Objective - Exam Narrative Exam: General appearance: chronically ill, frail EENT: PERRL, mucous membranes moist Neck: no JVD, no thyromegaly, no carotid bruit, supple Respiratory: Present: Clear to Ascultation Cardiology: regular, normal heart rate, S1S2, no murmurs Gastrointestinal: normal, normoactive bowel sounds Integumentary: no rash, other (1+ edema. AV fistula in her left upper arm. Good bruit and thrill.) - Vital Signs Vital signs: Vital Signs - 12hr 10/16/18 10/17/18 10/17/18 22:00 02:19 07:27 Temperature 99.3 F 100.0 F H Pulse Rate 91 H 92 H 90 Respiratory 16 18 Rate Blood Pressure 152/50 124/58 O2 Sat by Pulse 96 96 Oximetry - Lab 10/17/18 05:11 10/17/18 05:11 Most recent lab results Calcium 8.6 mg/dL (8.4-10.2) 10/17/18 05:11 Magnesium 2.20 mg/dL (1.7-2.3) 10/14/18 16:18 Medications & Allergies - Medications Allergies/Adverse Reactions: Allergies erythromycin base [Erythromycin Base] Allergy (Verified 09/05/18 14:03) Rash PATIENT ASK ME TO REMOVEDMED ON ALLERGY LIST. Home Medications: Home Medications Medication Instructions Recorded Confirmed Last Taken Type Ferric Citrate (Nf) [Auryxia] 630 mg PO TIDWM 09/05/18 10/17/18 Unknown History Furosemide [Lasix TAB] 80 mg PO QDAY PRN 09/05/18 10/17/18 Unknown History Insulin Regular, Human [HumuLIN R] 0 unit SQ AC #1 vial 09/07/18 10/17/1819 21:30 Rx Pantoprazole [Protonix TAB] 40 mg PO BID #60 tablet 10/03/18 10/17/18 10/16/18 20:00 Rx ISOSORBIDE MONOnitrate [Imdur ER] 30 mg PO QDAY #30 tablet 10/04/18 10/17/18 Unknown Rx Lisinopril [Zestril TAB] 5 mg PO DAILY #30 tablet 10/04/18 10/17/18 Unknown Rx cloNIDine [Catapres] 0.1 mg PO TID PRN 10/17/18 10/17/18 Unknown History Active Medications: Generic Name Dose Route Start Last Admin Trade Name Freq PRN Reason Stop Dose Admin Acetaminophen 650 mg 10/14/18 20:41 10/16/18 10:41 Tylenol PO 650 mg Q4H PRN Administration Pain MILD(1-3)/Fever >100.5/PEREZ Diphenhydramine HCl 25 mg 10/16/18 23:18 10/16/18 23:27 Benadryl PO 25 mg Q8H PRN Administration Itching Epoetin Khurram 10,000 unit 10/16/18 11:06 10/16/18 14:45 Procrit IV 10,000 unit ANTOINETTE PRN Administration hemodialysis Heparin Sodium (Porcine) 5,000 unit 10/14/18 22:00 10/16/18 21:36 Heparin SUB-Q 5,000 unit Q12HR CALIXTO Administration Sodium Chloride 100 mls @ 999 mls/hr 10/16/18 11:06 Nacl 0.9% IV ANTOINETTE PRN Hypotension Insulin Human Lispro 0 unit 10/15/18 07:30 10/17/18 09:00 Humalog SUB-Q 2 unit ACHS CALIXTO Administration Protocol Isosorbide Mononitrate 30 mg 10/15/18 10:00 10/16/18 10:42 Imdur PO 30 mg DAILY CALIXTO Administration Lisinopril 5 mg 10/15/18 10:00 10/16/18 10:42 Zestril PO 5 mg QDAY CALIXTO Administration Morphine Sulfate 2 mg 10/14/18 20:41 10/14/18 22:51 Morphine IV 2 mg Q4H PRN Administration Pain, Moderate (4-6) Ondansetron HCl 4 mg 10/14/18 20:41 10/16/18 05:04 Zofran IV 4 mg Q8H PRN Administration Nausea And Vomiting Oxycodone/Acetaminophen 1 tab 10/14/18 20:41 10/16/18 16:38 Percocet 5/325 PO 1 tab Q6H PRN Administration Pain, Moderate (4-6) Pantoprazole Sodium 40 mg 10/14/18 22:00 10/16/18 21:36 Protonix PO 40 mg BID CALIXTO Administration Polyethylene Glycol 17 gm 10/16/18 12:57 Miralax 3350 PO BID PRN Constipation Sodium Chloride 10 ml 10/14/18 22:00 10/16/18 21:36 Sodium Chloride Flush Syringe 10 Ml IV 10 ml BID CALIXTO Administration Sodium Chloride 10 ml 10/14/18 20:41 Sodium Chloride Flush Syringe 10 Ml IV PRN PRN LINE FLUSH
[2018-10-17] MEDS: SODIUM CHLORIDE FLUSH SYRINGE 10 ML IV SCH (10:02)
[2018-10-17] MEDS: ZESTRIL PO SCH (10:03)
[2018-10-17 18:41] VITALS: BP 128/60
== END 2018-10-17 15:10 | disposition home health service (06) | DRG 280 ==
LOC: ED 15:48 → 2B-ACE 20:41
PROVIDERS: ADMIT Internal Medicine; ATTEND Internal Medicine
PROC: 30233N1 Transfusion of Nonautologous Red Blood Cells into Peripheral Vein, Percutaneous Approach (ICD-10-PCS; 2018-10-15)
PROC: 5A1D70Z Performance of Urinary Filtration, Intermittent, Less than 6 Hours Per Day (ICD-10-PCS; principal; 2018-10-16)
DX: I21.A1 Myocardial infarction type 2 (principal); N18.6 End stage renal disease; G93.41 Metabolic encephalopathy; D62 Acute posthemorrhagic anemia; E44.0 Moderate protein-calorie malnutrition; I12.0 Hypertensive chronic kidney disease with stage 5 chronic kidney disease or end stage renal disease; D57.1 Sickle-cell disease without crisis; K21.9 Gastro-esophageal reflux disease without esophagitis; E11.22 Type 2 diabetes mellitus with diabetic chronic kidney disease; D63.1 Anemia in chronic kidney disease; F03.90 Unspecified dementia, unspecified severity, without behavioral disturbance, psychotic disturbance, mood disturbance, and anxiety; E87.5 Hyperkalemia; R62.7 Adult failure to thrive; Z68.23 Body mass index [BMI] 23.0-23.9, adult; Z99.2 Dependence on renal dialysis; Z95.828 Presence of other vascular implants and grafts; Z88.1 Allergy status to other antibiotic agents; Z79.4 Long term (current) use of insulin
CPT/HCPCS: 36415; 36430; 70450; 71045; 80048; 80053; 80061; 82140; 82550; 82728; 82962; 83036; 83550; 83735; 84132; 84484; 85014; 85018; 85025; 85027; 85610; 86850; 86900; 86901; 86920; 87116; 93005; 93010; 93970; G0378; J0885; J1644; J1815; J2270; J2405; J7030; J7040; P9016

== ENCOUNTER 2018-10-26 18:02 | Inpatient (IN) | payer MEDICARE ==
--- NOTE | 2018-10-26 18:50 | Event Note ---
ED Screening Note ED Screening Note: pt presents for right LE pain states had a US which was negative for DVT has skin changes present to the anterior shins pt walks with a walker PMHx HTN, CKD on dialysis, DM did not take her bp medicine today This initial assessment/diagnostic orders/clinical plan/treatment(s) is/are subject to change based on patients health status, clinical progression and re- assessment by fellow clinical providers in the ED. Further treatment and workup at subsequent clinical providers discretion. Patient/guardian urged not to elope from the ED as their condition may be serious if not clinically assessed and managed. ACC for further eval
--- NOTE | 2018-10-26 21:05 | Emergency Department Report ---
ED General Adult HPI - General Chief complaint: Extremity Injury, Lower Stated complaint: (R) FOOT CUT/SWELLING/PAIN Time Seen by Provider: 10/26/18 18:46 Source: patient Mode of arrival: Ambulatory Limitations: Physical Limitation - History of Present Illness Initial comments: This is a 67-year-old female nontoxic, well nourished in appearance, no acute signs of distress presents to the ED with c/o of generalized weakness and right leg pain. Patient stated that she developed a sore and right foot area and she believed that it is due to rubbing on her socks. Patient is on dialysis. Patient denies any chest pain or shortness of breath. Patient denies any trauma. Patient denies any fever, chills, nausea, vomiting, numbness or tingling. Patient agrees to bilateral chronic feet swelling. Patient stated has missed her diaylsis . Stated allergies to erythromycin. -: days(s) Location: right, lower extremity Radiation: non-radiation Severity scale (0 -10): 8 Quality: aching Consistency: constant Improves with: none Worsens with: none Associated Symptoms: weakness. denies: confusion, chest pain, cough, di aphoresis, fever/chills, headaches, loss of appetite, malaise, nausea/vomiting, rash, seizure, shortness of breath, syncope - Related Data Home Medications Medication Instructions Recorded Confirmed Last Taken Ferric Citrate (Nf) [Auryxia] 630 mg PO TIDWM 09/05/18 10/17/18 Unknown Furosemide [Lasix TAB] 80 mg PO QDAY PRN 09/05/18 10/17/18 Unknown cloNIDine [Catapres] 0.1 mg PO TID PRN 10/17/18 10/17/18 Unknown Previous Rx's Medication Instructions Recorded Last Taken Type Insulin Regular, Human [HumuLIN R] 0 unit SQ AC #1 vial 09/07/18 10/16/18 21:30 Rx Pantoprazole [Protonix TAB] 40 mg PO BID #60 tablet 10/03/18 10/16/18 20:00 Rx ISOSORBIDE MONOnitrate [Imdur ER] 30 mg PO QDAY #30 tablet 10/04/18 Unknown Rx Lisinopril [Zestril TAB] 5 mg PO DAILY #30 tablet 10/04/18 Unknown Rx Allergies Allergy/AdvReac Type Severity Reaction Status Date / Time erythromycin base Allergy Rash Verified 10/26/18 18:04 [Erythromycin Base] ED Review of Systems ROS: Stated complaint: (R) FOOT CUT/SWELLING/PAIN Other details as noted in HPI Constitutional: denies: chills, fever Eyes: denies: eye pain, eye discharge, vision change ENT: denies: ear pain, throat pain Respiratory: denies: cough, shortness of breath, wheezing Cardiovascular: denies: chest pain, palpitations Endocrine: no symptoms reported Gastrointestinal: denies: abdominal pain, nausea, diarrhea Genitourinary: denies: urgency, dysuria, discharge Musculoskeletal: arthralgia. denies: back pain, joint swelling Skin: denies: rash, lesions Neurological: weakness. denies: headache, paresthesias Psychiatric: denies: anxiety, depression Hematological/Lymphatic: denies: easy bleeding, easy bruising ED Past Medical Hx - Past Medical History Hx Hypertension: Yes Hx CVA: No Hx Heart Attack/AMI: No Hx Congestive Heart Failure: No Hx Diabetes: Yes Hx Deep Vein Thrombosis: No Hx Pulmonary Embolism: No Hx GERD: Yes Hx Liver Disease: No Hx Renal Disease: Yes (HD T,TH,Sat) Hx Sickle Cell Disease: No Hx Arthritis: No Hx Headaches / Migraines: No Hx Seizures: No Hx Kidney Stones: No Hx Psychiatric Treatment: No Hx Asthma: No Hx COPD: No Hx Tuberculosis: No Hx Dementia: No Hx HIV: No Additional medical history: anemia - Surgical History Hx Coronary Stent: No Hx Open Heart Surgery: No Hx Pacemaker: No Hx Internal Defibrillator: No Hx Cholecystectomy: No Hx Appendectomy: No Hx Breast Surgery: No Additional Surgical History: graft left arm - Social History Smoking Status: Never Smoker - Medications Home Medications: Home Medications Medication Instructions Recorded Confirmed Last Taken Type Ferric Citrate (Nf) [Auryxia] 630 mg PO TIDWM 09/05/18 10/17/18 Unknown History Furosemide [Lasix TAB] 80 mg PO QDAY PRN 09/05/18 10/17/18 Unknown History Insulin Regular, Human [HumuLIN R] 0 unit SQ AC #1 vial 09/07/18 10/17/18 10/16/18 21:30 Rx Pantoprazole [Protonix TAB] 40 mg PO BID #60 tablet 10/03/18 10/17/18 10/16/18 20:00 Rx ISOSORBIDE MONOnitrate [Imdur ER] 30 mg PO QDAY #30 tablet 10/04/18 10/17/18 Unknown Rx Lisinopril [Zestril TAB] 5 mg PO DAILY #30 tablet 10/04/18 10/17/18 Unknown Rx cloNIDine [Catapres] 0.1 mg PO TID PRN 10/17/18 10/17/18 Unknown History ED Physical Exam - General Limitations: Physical Limitation General appearance: alert, in no apparent distress - Head Head exam: Present: atraumatic, normocephalic - Neck Neck exam: Present: normal inspection, full ROM - Respiratory Respiratory exam: Present: normal lung sounds bilaterally. Absent: respiratory distress, wheezes, rales, rhonchi, stridor, chest wall tenderness, accessory muscle use, decreased breath sounds, prolonged expiratory - Cardiovascular Cardiovascular Exam: Present: regular rate, normal rhythm, normal heart sounds. Absent: systolic murmur, diastolic murmur, rubs, gallop - GI/Abdominal GI/Abdominal exam: Present: soft, normal bowel sounds. Absent: distended, tenderness, guarding, rebound, rigid, diminished bowel sounds - Extremities Exam Extremities exam: Present: full ROM, tenderness, normal capillary refill, pedal edema. Absent: joint swelling, calf tenderness - Expanded Lower Extremity Exam Right Hip exam: Present: normal inspection, full ROM. Absent: tenderness, swelling Upper Leg exam: Present: normal inspection, full ROM. Absent: tenderness, swelling Knee exam: Present: normal inspection, full ROM. Absent: tenderness, swelling Lower Leg exam: Present: full ROM, tenderness, swelling, erythema. Absent: abrasion, laceration, ecchymosis, deformity, crepidus, dislocation, palpable cord, Lj's sign Ankle exam: Present: full ROM, tenderness, swelling. Absent: abrasion, laceration, ecchymosis, deformity, crepidus, dislocation, erythema, anterior draw sign Foot/Toe exam: Present: full ROM, tenderness, swelling. Absent: abrasion, laceration, ecchymosis, deformity, crepidus, dislocation, erythema, amputation, puncture wound, foreign body, calcaneal tenderness, tenderness at base of 5th metatarsal, nail avulsion, subungual hematoma Neuro vascular tendon exam: Present: no vascular compromise - Back Exam Back exam: Present: normal inspection, full ROM. Absent: tenderness, CVA tenderness (R), CVA tenderness (L), muscle spasm, paraspinal tenderness, vertebral tenderness, rash noted - Neurological Exam Neurological exam: Present: alert, oriented X3 - Psychiatric Psychiatric exam: Present: normal affect, normal mood - Skin Skin exam: Present: warm, dry, intact, normal color. Absent: rash ED Course Vital Signs 10/26/18 18:53 Temperature 98.7 F Pulse Rate 104 H Respiratory 20 Rate Blood Pressure 179/96 O2 Sat by Pulse 99 Oximetry - Reevaluation(s) Reevaluation #1: 10/26/18 21:05 Patient is speaking in full sentences with no signs of distress noted. - Consultations Consultation #1: 10/26/18 23:44 Patient has been consulted with Janel Blackman about patient history, physical exam, and labs and agrees to ED plan of care. Consultation #2: 10/26/18 23:55 Patient has been consulted with Dave Hernández (neurologist) about patient history, physical exam, and labs and agrees for admission. Consultation #3: 10/27/18 00:33 Patient has been consulted with Dr. Dean (hospitalist) and accepts patient to services for admission. ED Medical Decision Making - Lab Data Result diagrams: 10/26/18 21:35 10/26/18 21:35 - Medical Decision Making This is a 67-year-old female that presents with hyperkalemia, missed dialysis, and right leg cellulitis. Patient is stable and was examined by me. Patient was consulted with Janel Blackman and agrees to admission. 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 Mendoza and agrees for admission. Patient is admitted with Dr. Dean. Labs has been obtained. I will start patient on clindamycin for right lower leg cellulitis. At time of admission, the patient does not seem toxic or ill in appearance. No acute signs of distress noted. Patient agrees to admission treatment plan of care. No further questions noted by the patient. Critical care attestation.: If time is entered above; I have spent that time in minutes in the direct care of this critically ill patient, excluding procedure time. ED Disposition Clinical Impression: Missed dialysis, Hyperkalemia, Cellulitis of right leg Disposition: -09 OP ADMIT IP TO THIS HOSP Is pt being admited?: Yes Condition: Stable Referrals: FROYLAN ARREGUIN MD [Primary Care Provider] - 3-5 Days
[2018-10-26 21:57] LABS: Hematocrit 31.1 % (30.3-42.9); Hemoglobin 9.9 gm/dl (10.1-14.3); Mean Corpuscular HGB Conc 32 % (30-34); Mean Corpuscular Volume 88 fl (79-97); Red Blood Count 3.55 M/mm3 (3.65-5.03)
[2018-10-26 22:03] LABS: Platelet Count 381 K/mm3 (140-440); Red Cell Distribution Width 20.9 % (13.2-15.2)
[2018-10-26 22:31] LABS: Basophils % (Manual) 0 % (0.0-1.8); Total Cells Counted 100
[2018-10-26 22:32] LABS: Anisocytosis 1+
[2018-10-26 22:33] LABS: Spherocytes Few; Target Cells Rare; Tear Drop Cells Rare
[2018-10-26 23:23] LABS: BUN/Creatinine Ratio 9; Blood Urea Nitrogen 78 mg/dL (7-17); Calcium 9.4 mg/dL (8.4-10.2); Hemolysis Index 42
[2018-10-26] MEDS ORDERED: KIONEX PO ONE (23:37)
[2018-10-26] MEDS ORDERED: D50W (25GM) Syringe IV ONE (23:37)
[2018-10-26] MEDS ORDERED: HumuLIN R IV ONE (23:37)
[2018-10-26] MEDS ORDERED: CALCIUM CHLORIDE IV ONE (23:37)
[2018-10-26] MEDS ORDERED: CLEOCIN 600 MG/50 mL 600 MG/50 ML BAG IV ONE (23:51)
--- NOTE | 2018-10-27 01:09 | History and Physical Report ---
History of Present Illness Date of examination: 10/27/18 History of present illness: 67-year-old man with a history of hypertension, diabetes, end-stage renal disease, GERD comes to the emergency room with complaints of right leg pain. She was in so much pain today, she missed dialysis Review of systems Constitutional: no weight loss, chills, fever Ears, eyes, nose, mouth and throat: no nasal congestion, no nasal discharge, no sinus pressure, no vision change, no red eye. Neck: No neck pain or rigidity. Cardiovascular: no palpitations, chest pain Respiratory: no cough, shortness of breath Gastrointestinal: no hematochezia, abdominal pain Genitourinary : no frequency , no hematuria Musculoskeletal: no joint swelling or muscle ache Integumentary: no rash, no pruritis Neurological: no parathesias, no focal weakness Endocrine: no cold or heat intolerance, no polyuria or polydipsia Hematologic/Lymphatic: no easy bruising, no easy bleeding, no gland swelling Allergic/Immunologic: no urticaria, no angioedema. PAST MEDICAL HISTORY:hypertension, diabetes, end-stage renal disease, GERD PAST SURGICAL HISTORY: AV fistula SOCIAL HISTORY: Denies alcohol, drugs, tobacco FAMILY HISTORY: Hypertension Medications and Allergies Allergies Allergy/AdvReac Type Severity Reaction Status Date / Time erythromycin base Allergy Rash Verified 10/26/18 18:04 [Erythromycin Base] Home Medications Medication Instructions Recorded Confirmed Last Taken Type Ferric Citrate (Nf) [Auryxia] 630 mg PO TIDWM 09/05/18 10/27/18 Unknown History Insulin Regular, Human [HumuLIN R] 0 unit SQ AC #1 vial 09/07/18 10/27/18 10/16/18 21:30 Rx Pantoprazole [Protonix TAB] 40 mg PO BID #60 tablet 10/03/18 10/27/18 10/16/18 20:00 Rx ISOSORBIDE MONOnitrate [Imdur ER] 30 mg PO QDAY #30 tablet 10/04/18 10/27/18 Unknown Rx Lisinopril [Zestril TAB] 5 mg PO DAILY #30 tablet 10/04/18 10/27/18 Unknown Rx cloNIDine [Catapres] 0.1 mg PO TID PRN 10/17/18 10/27/18 Unknown History Clindamycin [Clindamycin CAP] 300 mg PO Q6H #28 capsule 10/29/18 Unknown Rx Mupirocin [Bactroban 2%] 1 applic TP TID #1 tube 10/29/18 Unknown Rx oxyCODONE /ACETAMINOPHEN [Percocet 1 tab PO BID PRN #10 tablet 10/29/18 Unknown Rx 5/325] Exam - Physical Exam Narrative exam: General Apperance: The patient lying in bed, breathing comfortable HEENT: Normocephalic, atraumatic. Pupils equally round and reactive to light, EOMI, no sclericterus or JVD or thyromegaly or nodule. , no carotid bruit, mucous membranes moist, no exudate or erythema Heart: S1-S2, regular is rhythm Lungs: Clear to auscultation bilaterally, breathing comfortable Abdomen: Positive bowel sounds, soft, nontender, nondistended, no organomegaly Extremities: No edema cyanosis clubbing Skin: Mild erythema on the medial aspect of the ight foot no rash, nodule, warm and dry Neuro: cranial nerves 2-12 intact, speech is fluent, motor/sensory intact - Constitutional Vitals: Temp Pulse Resp BP Pulse Ox 98.7 F 104 H 20 179/96 99 10/26/18 18:53 10/26/18 18:53 10/26/18 18:53 10/26/18 18:53 10/26/18 18:53 Results - Labs CBC & Chem 7: 10/29/18 05:16 10/29/18 05:16 Labs: Abnormal lab results 10/26/18 10/26/18 10/26/18 Range/Units 21:35 21:35 21:35 WBC 11.3 H (4.5-11.0) K/mm3 RBC 3.55 L (3.65-5.03) M/mm3 Hgb 9.9 L (10.1-14.3) gm/dl RDW 20.9 H (13.2-15.2) % Seg Neuts % (Manual) 81.0 H (40.0-70.0) % Lymphocytes % (Manual) 10.0 L (13.4-35.0) % Eosinophils % (Manual) 5.0 H (0.0-4.3) % Seg Neutrophils # Man 9.2 H (1.8-7.7) K/mm3 Lymphocytes # (Manual) 1.1 L (1.2-5.4) K/mm3 Eosinophils # (Manual) 0.6 H (0.0-0.4) K/mm3 Potassium 5.7 H (3.6-5.0) mmol/L Chloride 97.9 L (98-107) mmol/L Carbon Dioxide 18 L (22-30) mmol/L BUN 78 H (7-17) mg/dL Creatinine 8.6 H (0.7-1.2) mg/dL NT-Pro-B Natriuret Pep 87257 H (0-900) pg/mL - Imaging and Cardiology EKG: image reviewed Assessment and Plan Assessment ESRD need hemodialysis Hyperkalemia Cellulitis of foot hypertension diabetes Plan Admit to medicine Consult renal for dialysis Start IV Rocephin, continued appropriate outpatient medications DVT prophylaxis, check fingersticks and initiate insulin sliding scale Addendum Patient complaining of abdominal pain -epigastric, check CT abdomen Consult GI, ct reviewed
[2018-10-27 02:17] LABS: Alanine Aminotransferase 12 units/L (7-56); Albumin 4.1 g/dL (3.9-5)
[2018-10-27] MEDS ORDERED: TYLENOL PO PRN (03:37)
[2018-10-27] MEDS ORDERED: ZOFRAN IV PRN (03:37)
[2018-10-27] MEDS ORDERED: SODIUM CHLORIDE FLUSH SYRINGE 10 ML IV PRN (03:37)
[2018-10-27] MEDS ORDERED: D50W (25GM) Syringe IV PRN (03:48)
[2018-10-27 04:41] LABS: Chol/HDL Ratio 2.24 %; HDL Cholesterol 74 mg/dL (40-59); LDL Cholesterol,Direct 85 mg/dL (50-130)
[2018-10-27 04:43] LABS: Basophils # (Auto) 0.1 K/mm3 (0.0-0.1); Basophils % (Auto) 0.8 % (0.0-1.8); Eosinophils # (Auto) 0.3 K/mm3 (0.0-0.4); Eosinophils % (Auto) 4.5 % (0.0-4.3); Hematocrit 26.5 % (30.3-42.9); Hemoglobin 8.6 gm/dl (10.1-14.3); Lymphocytes # (Auto) 0.7 K/mm3 (1.2-5.4); Lymphocytes % (Auto) 9.2 % (13.4-35.0); Mean Corpuscular HGB Conc 33 % (30-34); Mean Corpuscular Volume 87 fl (79-97); Monocytes # (Auto) 0.6 K/mm3 (0.0-0.8); Platelet Count 361 K/mm3 (140-440); Red Blood Count 3.04 M/mm3 (3.65-5.03)
[2018-10-27 04:51] LABS: Red Cell Distribution Width 20.7 % (13.2-15.2)
[2018-10-27 04:59] LABS: Calcium 9.5 mg/dL (8.4-10.2)
--- NOTE | 2018-10-27 05:03 | Cat Scan Report ---
PROCEDURE: CT ABDOMEN PELVIS WO CON TECHNIQUE: CT imaging is obtained through the abdomen and pelvis without contrast HISTORY: abd pain COMPARISONS: 01/05/2018 FINDINGS: Imaged intrathoracic contents are remarkable for coronary artery disease. Kidneys are diminutive with several exophytic cysts that appear unchanged from prior. Extensive renal vascular calcification. No hydroureteronephrosis or definite nephrolithiasis. No stones in the urina ry bladder, which is somewhat difficult to discern from adjacent loops of bowel without contrast. Ret roverted uterus with multiple calcified fibroids. The liver, gallbladder, pancreas, spleen, and adrenal glands demonstrate an unremarkable noncontrast appearance. There is focal wall thickening and edema involving the distal stomach and proximal duodenum demonstra maira on axial series 2, images 57-65. Hollow enteric organs otherwise appear normal in course and varsha mariella within limits of this noncontrast exam. No findings of appendicitis. No pneumoperitoneum or focal fluid collection identified to suggest abscess. Evaluation is partially compromised by close apposit ion of structures and lack of contrast. Aorta is normal in caliber with densely scattered atherosclerosis, which extends throughout all major arteries of the abdomen Superficial soft tissues are unremarkable. No acute or aggressive appearing skeletal findings. IMPRESSION: Focal wall thickening with adjacent edema involving the proximal duodenum/distal stomach may be infec tious or inflammatory (diverticular or ulcer disease) in etiology. Ischemic etiology is an additional consideration given extensive coronary and peripheral arterial disease in this patient. No luis pne umoperitoneum or focal fluid collection identified to suggest abscess formation within limits of this noncontrast exam. Dr. Rodriguez discussed findings with Dr. Dean at 0353 [address] Time on 10/27/2018 immediately following t he examination. This document is electronically signed by Vel Rodriguez MD., October 27 2018 05:01:14 AM ET
[2018-10-27] MEDS ORDERED: NACL 0.9% 100 ML IV PRN (06:21)
[2018-10-27] MEDS: HumaLOG SUB-Q SCH ×4 (07:14→23:38)
[2018-10-27] MEDS ORDERED: CATAPRES PO PRN (08:22)
--- NOTE | 2018-10-27 08:29 | Progress Note ---
Assessment and Plan Assessment and plan: --Type 2 diabetes mellitus; Accu-Chek sliding scale coverage and ADA diet Insulin as needed --Hypertension; rate controlled continue current antihypertensives when necessary medications --End-stage renal disease; on hemodialysis HD per schedule nephrology following --Anemia of chronic disease; monitor H&H Procrit during dialysis --History of GI bleeding; abdominal pain Patient had recent colonoscopy and EGD Continue current management, Follow H&H GI evaluation and recommendations noted and appreciated --DVT prophylaxis; heparin renal dose History Interval history: Patient seen and examined medical records reviewed Patient feels slightly better, No new complaints Schedule for hemodialysis Vital Signs noted Hospitalist Physical - Constitutional Vitals: Temp Pulse Resp BP Pulse Ox 98.0 F 97 H 20 182/83 99 10/27/18 07:10 10/27/18 07:10 10/27/18 07:10 10/27/18 07:10 10/27/18 07:10 General appearance: Present: no acute distress, well-nourished - EENT Eyes: Present: PERRL, EOM intact - Neck Neck: Present: supple, normal ROM - Respiratory Respiratory effort: normal Respiratory: bilateral: diminished, rales, negative: rhonchi, wheezing - Cardiovascular Rhythm: regular Heart Sounds: Present: S1 & S2 - Extremities Extremities: no ischemia, abnormal (chronic skin changes bilateral lower extremities) - Abdominal General gastrointestinal: soft, non-tender, non-distended, normal bowel sounds - Integumentary Integumentary: Present: clear, warm - Psychiatric Psychiatric: appropriate mood/affect, cooperative - Neurologic Neurologic: CNII-XII intact, moves all extremities Results - Labs CBC & Chem 7: 10/28/18 17:09 10/27/18 04:14 Labs: Laboratory Last Values WBC 7.2 K/mm3 (4.5-11.0) 10/27/18 04:14 RBC 3.04 M/mm3 (3.65-5.03) L 10/27/18 04:14 Hgb 8.6 gm/dl (10.1-14.3) L 10/27/18 04:14 Hct 26.5 % (30.3-42.9) L 10/27/18 04:14 MCV 87 fl (79-97) 10/27/18 04:14 MCH 28 pg (28-32) 10/27/18 04:14 MCHC 33 % (30-34) 10/27/18 04:14 RDW 20.7 % (13.2-15.2) H 10/27/18 04:14 Plt Count 361 K/mm3 (140-440) 10/27/18 04:14 Lymph % (Auto) 9.2 % (13.4-35.0) L 10/27/18 04:14 [place] % (Auto) 9.0 % (0.0-7.3) H 10/27/18 04:14 Eos % (Auto) 4.5 % (0.0-4.3) H 10/27/18 04:14 Baso % (Auto) 0.8 % (0.0-1.8) 10/27/18 04:14 Lymph # 0.7 K/mm3 (1.2-5.4) L 10/27/18 04:14 [place] # 0.6 K/mm3 (0.0-0.8) 10/27/18 04:14 Eos # 0.3 K/mm3 (0.0-0.4) 10/27/18 04:14 Baso # 0.1 K/mm3 (0.0-0.1) 10/27/18 04:14 Add Manual Diff Complete 10/26/18 21:35 Total Counted 100 10/26/18 21:35 Seg Neutrophils % 76.5 % (40.0-70.0) H 10/27/18 04:14 Seg Neuts % (Manual) 81.0 % (40.0-70.0) H 10/26/18 21:35 0 % 10/26/18 21:35 10.0 % (13.4-35.0) L 10/26/18 21:35 Reactive Lymphs % (Man) 0 % 10/26/18 21:35 4.0 % (0.0-7.3) 10/26/18 21:35 5.0 % (0.0-4.3) H 10/26/18 21:35 0 % (0.0-1.8) 10/26/18 21:35 0 % 10/26/18 21:35 0 % 10/26/18 21:35 0 % 10/26/18 21:35 0 % 10/26/18 21:35 Nucleated RBC % Not Reportable 10/26/18 21:35 Seg Neutrophils # 5.5 K/mm3 (1.8-7.7) 10/27/18 04:14 Seg Neutrophils # Man 9.2 K/mm3 (1.8-7.7) H 10/26/18 21:35 Band Neutrophils # 0.0 K/mm3 10/26/18 21:35 1.1 K/mm3 (1.2-5.4) L 10/26/18 21:35 Abs React Lymphs (Man) 0.0 K/mm3 10/26/18 21:35 0.5 K/mm3 (0.0-0.8) 10/26/18 21:35 0.6 K/mm3 (0.0-0.4) H 10/26/18 21:35 0.0 K/mm3 (0.0-0.1) 10/26/18 21:35 0.0 K/mm3 10/26/18 21:35 0.0 K/mm3 10/26/18 21:35 0.0 K/mm3 10/26/18 21:35 Blast Cells # 0.0 K/mm3 10/26/18 21:35 WBC Morphology Not Reportable 10/26/18 21:35 Hypersegmented Neuts Not Reportable 10/26/18 21:35 Hyposegmented Neuts Not Reportable 10/26/18 21:35 Hypogranular Neuts Not Reportable 10/26/18 21:35 Not Reportable 10/26/18 21:35 Not Reportable 10/26/18 21:35 Not Reportable 10/26/18 21:35 Not Reportable 10/26/18 21:35 Not Reportable 10/26/18 21:35 Not Reportable 10/26/18 21:35 Appears normal 10/26/18 21:35 Not Reportable 10/26/18 21:35 Plt Clumps, EDTA Not Reportable 10/26/18 21:35 Not Reportable 10/26/18 21:35 Not Reportable 10/26/18 21:35 Not Reportable 10/26/18 21:35 Plt Morphology Comment Not Reportable 10/26/18 21:35 RBC Morphology Not Reportable 10/26/18 21:35 Dimorphic RBCs Not Reportable 10/26/18 21:35 Not Reportable 10/26/18 21:35 Not Reportable 10/26/18 21:35 Not Reportable 10/26/18 21:35 1+ 10/26/18 21:35 Not Reportable 10/26/18 21:35 Not Reportable 10/26/18 21:35 Few 10/26/18 21:35 Not Reportable 10/26/18 21:35 Not Reportable 10/26/18 21:35 Rare 10/26/18 21:35 Rare 10/26/18 21:35 Not Reportable 10/26/18 21:35 Not Reportable 10/26/18 21:35 Not Reportable 10/26/18 21:35 Not Reportable 10/26/18 21:35 Not Reportable 10/26/18 21:35 Not Reportable 10/26/18 21:35 Not Reportable 10/26/18 21:35 Not Reportable 10/26/18 21:35 Acanthocytes (Spur) Not Reportable 10/26/18 21:35 Rouleaux Not Reportable 10/26/18 21:35 Not Reportable 10/26/18 21:35 Not Reportable 10/26/18 21:35 Not Reportable 10/26/18 21:35 Not Reportable 10/26/18 21:35 Hem Pathologist Commnt No 10/26/18 21:35 Sodium 143 mmol/L (137-145) 10/27/18 04:14 Potassium 5.3 mmol/L (3.6-5.0) H 10/27/18 04:14 Chloride 97.3 mmol/L (98-107) L 10/27/18 04:14 Carbon Dioxide 22 mmol/L (22-30) 10/27/18 04:14 29 mmol/L 10/27/18 04:14 BUN 84 mg/dL (7-17) H 10/27/18 04:14 9.6 mg/dL (0.7-1.2) H 10/27/18 04:14 Estimated GFR 5 ml/min 10/27/18 04:14 9 % 10/27/18 04:14 Glucose 95 mg/dL (65-100) 10/27/18 04:14 POC Glucose 138 (70-105) H 10/27/18 07:16 Lactic Acid 0.80 mmol/L (0.7-2.0) 10/26/18 21:35 Calcium 9.5 mg/dL (8.4-10.2) 10/27/18 04:14 < 0.20 mg/dL (0.1-1.2) 10/26/18 21:35 AST 26 units/L (5-40) 10/26/18 21:35 ALT 12 units/L (7-56) 10/26/18 21:35 107 units/L (35-129) 10/26/18 21:35 134 units/L (30-135) 10/26/18 21:35 0.348 ng/mL (0.00-0.029) H* 10/26/18 21:35 NT-Pro-B Natriuret Pep 40265 pg/mL (0-900) H 10/26/18 21:35 7.2 g/dL (6.3-8.2) 10/26/18 21:35 4.1 g/dL (3.9-5) 10/26/18 21:35 1.3 % 10/26/18 21:35 Triglycerides 61 mg/dL (2-149) 10/26/18 21:35 Cholesterol 166 mg/dL (50-199) 10/26/18 21:35 85 mg/dL (50-130) 10/26/18 21:35 74 mg/dL (40-59) H 10/26/18 21:35 2.24 % 10/26/18 21:35 Active Medications - Current Medications Current Medications: Generic Name Dose Route Start Last Admin Trade Name Freq PRN Reason Stop Dose Admin Acetaminophen 650 mg 10/27/18 03:37 Tylenol PO Q4H PRN Pain MILD(1-3)/Fever >100.5/PEREZ Clonidine HCl 0.1 mg 10/27/18 08:22 Catapres PO TID PRN Blood Pressure Dextrose 50 ml 10/27/18 03:48 D50w (25gm) Syringe IV PRN PRN Hypoglycemia Enoxaparin Sodium 30 mg 10/27/18 10:00 Lovenox SUB-Q QDAY [facility] Ceftriaxone Sodium 1 gm in 50 mls @ 100 mls/hr 10/27/18 10:00 Rocephin/Ns 1 Gm/50 Ml IV Q24HR [facility] Protocol Sodium Chloride 100 mls @ 999 mls/hr 10/27/18 06:21 Nacl 0.9% IV ANTOINETTE PRN Hypotension Insulin Human Lispro 0 unit 10/27/18 07:30 10/27/18 07:14 Humalog SUB-Q Not Given ACHS [facility] Protocol Isosorbide Mononitrate 30 mg 10/27/18 10:00 Imdur PO QDAY [facility] Lisinopril 5 mg 10/27/18 10:00 Zestril PO DAILY [facility] Miscellaneous Medication 80 mg 10/27/18 08:22 Furosemide [Lasix Tab] PO QDAY PRN swelling Ondansetron HCl 4 mg 10/27/18 03:37 Zofran IV Q8H PRN Nausea And Vomiting Pantoprazole Sodium 40 mg 10/27/18 10:00 Protonix PO BID [facility] Sodium Chloride 10 ml 10/27/18 10:00 Sodium Chloride Flush Syringe 10 Ml IV BID [facility] Sodium Chloride 10 ml 10/27/18 03:37 Sodium Chloride Flush Syringe 10 Ml IV PRN PRN LINE FLUSH
[2018-10-27] MEDS ORDERED: LASIX PO PRN (10:00)
--- NOTE | 2018-10-27 10:04 | Vascular Lab Report ---
PROCEDURE: VL ARTERIAL DUPLEX LE RT TECHNIQUE: Arterial duplex Doppler ultrasound of right lower extremity. As HISTORY: right leg pain COMPARISON: None FINDINGS: There is prominent calcified plaque right right lower extremity. There is biphasic flow in the right common femoral artery. There is monophasic flow in the right superficial femoral artery and popliteal artery. There is elevated velocity in the proximal superficial femoral artery, measured at 217 cm/s. This is suggestive of some stenosis. There is a segment of proximal SFA with little to no flow sugge sting occlusion or near occlusion.. Flow is reconstituted in the mid to distal superficial femoral ar live. There is also diminished flow in the mid to distal popliteal artery. There is little to no flow documented in the calf arteries. IMPRESSION: Marked atherosclerotic disease. Findings indicate marked peripheral vascular disease. The re is stenosis in the proximal superficial femoral artery is well as a segment of occlusion or near o cclusion in the mid superficial femoral artery. Flow is reconstituted in the distal SFA and proximal popliteal artery. There is near occlusion of the mid to distal popliteal artery and no significant fl ow documented in the calf arteries. This document is electronically signed by Sandy Bansal MD., October 27 2018 10:02:57 AM ET
--- NOTE | 2018-10-27 10:06 | Vascular Lab Report ---
PROCEDURE: VL VENOUS DUPLEX LE RT TECHNIQUE: Grayscale, color flow and spectral waveform images were obtained of right lower extremity . HISTORY: right leg pain COMPARISON: None FINDINGS: There is no deep venous thrombosis seen in the right lower extremity. Flow is demonstrated by color flow and spectral waveform imaging. There is appropriate wall compression and augmentation. There is also no evidence of superficial venous thrombus. IMPRESSION: There is no evidence for DVT in right lower extremity. This document is electronically signed by Sandy Bansal MD., October 27 2018 10:04:07 AM ET
[2018-10-27] MEDS ORDERED: NACL 0.9 (PRIMING MACHINE ONLY DIALYSIS) MC ONE (11:56)
--- NOTE | 2018-10-27 13:07 | Consultation ---
History of Present Illness - Reason for Consult Consult date: 10/27/18 end stage renal disease - History of Present Illness Mrs. Dueñas is a 67yo with ESRD on HD who presented to the ED with c/o weakness and leg pain. In the ED, labs were notable for BUN/SCr 78/8.6, K 5.7 Nephrology consulted for management of ESRD. Past History Past Medical History: diabetes, ESRD, hypertension Past Surgical History: Other (AV creation) Social history: no significant social history Family history: no significant family history Medications and Allergies Allergies Allergy/AdvReac Type Severity Reaction Status Date / Time erythromycin base Allergy Rash Verified 10/26/18 18:04 [Erythromycin Base] Home Medications Medication Instructions Recorded Confirmed Last Taken Type Ferric Citrate (Nf) [Auryxia] 630 mg PO TIDWM 09/05/18 10/27/18 Unknown History Furosemide [Lasix TAB] 80 mg PO QDAY PRN 09/05/18 10/27/18 Unknown History Insulin Regular, Human [HumuLIN R] 0 unit SQ AC #1 vial 09/07/18 10/27/18 10/16/18 21:30 Rx Pantoprazole [Protonix TAB] 40 mg PO BID #60 tablet 10/03/18 10/27/18 10/16/18 20:00 Rx ISOSORBIDE MONOnitrate [Imdur ER] 30 mg PO QDAY #30 tablet 10/04/18 10/27/18 Unknown Rx Lisinopril [Zestril TAB] 5 mg PO DAILY #30 tablet 10/04/18 10/27/18 Unknown Rx cloNIDine [Catapres] 0.1 mg PO TID PRN 10/17/18 10/27/18 Unknown History Active Meds: Active Medications Acetaminophen (Tylenol) 650 mg PO Q4H PRN PRN Reason: Pain MILD(1-3)/Fever >100.5/PEREZ Last Admin: 10/27/18 11:56 Dose: 650 mg Documented by: Clonidine HCl (Catapres) 0.1 mg PO TID PRN PRN Reason: Blood Pressure Dextrose (D50w (25gm) Syringe) 50 ml IV PRN PRN PRN Reason: Hypoglycemia Enoxaparin Sodium (Lovenox) 30 mg SUB-Q QDAY [facility] Furosemide (Lasix) 80 mg PO QDAY PRN PRN Reason: SWELLING Ceftriaxone Sodium (Rocephin/Ns 1 Gm/50 Ml) 1 gm in 50 mls @ 100 mls/hr IV Q24HR [facility]; Protocol Sodium Chloride (Nacl 0.9%) 100 mls @ 999 mls/hr IV ANTOINETTE PRN PRN Reason: Hypotension Insulin Human Lispro (Humalog) 0 unit SUB-Q ACHS [facility]; Protocol Last Admin: 10/27/18 07:14 Dose: Not Given Documented by: Isosorbide Mononitrate (Imdur) 30 mg PO QDAY [facility] Lisinopril (Zestril) 5 mg PO DAILY [facility] Ondansetron HCl (Zofran) 4 mg IV Q8H PRN PRN Reason: Nausea And Vomiting Pantoprazole Sodium (Protonix) 40 mg PO BID [facility] Sodium Chloride (Sodium Chloride Flush Syringe 10 Ml) 10 ml IV BID [facility] Sodium Chloride (Sodium Chloride Flush Syringe 10 Ml) 10 ml IV PRN PRN PRN Reason: LINE FLUSH Review of Systems All systems: negative Exam - Vital Signs Vital signs: Vital Signs Temp Pulse Resp BP Pulse Ox 98.7 F 104 H 20 179/96 99 10/26/18 18:53 10/26/18 18:53 10/26/18 18:53 10/26/18 18:53 10/26/18 18:53 - General Appearance General appearance: well-developed, well-nourished EENT: ATNC Respiratory: Clear to Ascultation Heart: S1S2 Gastrointestinal: Present: normal. Absent: tenderness, distended Integumentary: warm and dry Musculoskeletal: Present: other (+Edema) Psychiatric: cooperative Results - Lab Results 10/27/18 04:14 10/27/18 04:14 Most recent lab results Calcium 9.5 mg/dL (8.4-10.2) 10/27/18 04:14 Assessment and Plan Impression: * End stage renal disease * Right leg pain --RLE doppler negative for DVT * Hypertension * Type II DM * Recent hx of GI bleed --Colonoscopy: No gross lesions and no blood seen in the colon. Large internal and external hemorrhoids. Inadequate prep --EGD: Duodenum - nodularity biopsied to r/o adenoma. Severe duodenitis of the bulb. Deep cratered pre-pyloric clean based ulcer * Secondary hyperparathyroidism * Anemia secondary to ESRD Plan: * Hemodialysis today * UF as tolerated * Epogen TIW prn * Continue antiHTN medications * Renal diet
[2018-10-27] MEDS: PERCOCET 5/325 PO PRN (14:34)
[2018-10-27] MEDS: ROCEPHIN/NS 1 GM/50 ML 1 GM/50 ML BAG IV SCH (15:19)
[2018-10-27] MEDS: SODIUM CHLORIDE FLUSH SYRINGE 10 ML IV SCH ×2 (15:19→23:40)
[2018-10-27] MEDS: LOVENOX SUB-Q SCH (15:19)
[2018-10-27] MEDS: PROTONIX PO SCH ×2 (15:21→23:39)
[2018-10-27] MEDS: ZESTRIL PO SCH (15:22)
[2018-10-27] MEDS: IMDUR PO SCH (15:23)
--- NOTE | 2018-10-27 17:51 | Gastroenterology Consultation ---
History of Present Illness - Reason for Consult Consult date: 10/27/18 abdominal pain Requesting physician: LAUREEN ABEBE - History of Present Illness This is a 67 yo female with pmh of DM, HTN, chronic anemia, PVD, ESRD on HD, and recent admission for GI bleed and found to have gastric ulcer, gastritis, duodenitis admitted for missing HD and leg ulcer. GI consulted for abdominal pain and abnormal CT a/p. She reports chronic epigastric abdominal pain, which has not changed. Her stools have been dark but she was on iron supplements. Since admission, she had CT a bdomen/pelvis showing distal gastric wall thickening and duodenal wall thickening. Hgb overnight trended down to 8. Past History Past Medical History: diabetes, ESRD, hypertension Past Surgical History: Other (AV creation) Social history: no significant social history Family history: no significant family history Medications and Allergies Allergies Allergy/AdvReac Type Severity Reaction Status Date / Time erythromycin base Allergy Rash Verified 10/26/18 18:04 [Erythromycin Base] Home Medications Medication Instructions Recorded Confirmed Last Taken Type Ferric Citrate (Nf) [Auryxia] 630 mg PO TIDWM 09/05/18 10/27/18 Unknown History Furosemide [Lasix TAB] 80 mg PO QDAY PRN 09/05/18 10/27/18 Unknown History Insulin Regular, Human [HumuLIN R] 0 unit SQ AC #1 vial 09/07/18 10/27/18 10/16/18 21:30 Rx Pantoprazole [Protonix TAB] 40 mg PO BID #60 tablet 10/03/18 10/27/18 10/16/18 20:00 Rx ISOSORBIDE MONOnitrate [Imdur ER] 30 mg PO QDAY #30 tablet 10/04/18 10/27/18 Unknown Rx Lisinopril [Zestril TAB] 5 mg PO DAILY #30 tablet 10/04/18 10/27/18 Unknown Rx cloNIDine [Catapres] 0.1 mg PO TID PRN 10/17/18 10/27/18 Unknown History Active Meds: Active Medications Acetaminophen (Tylenol) 650 mg PO Q4H PRN PRN Reason: Pain MILD(1-3)/Fever >100.5/PEREZ Last Admin: 10/27/18 11:56 Dose: 650 mg Documented by: Clonidine HCl (Catapres) 0.1 mg PO TID PRN PRN Reason: Blood Pressure Dextrose (D50w (25gm) Syringe) 50 ml IV PRN PRN PRN Reason: Hypoglycemia Enoxaparin Sodium (Lovenox) 30 mg SUB-Q QDAY [facility] Last Admin: 10/27/18 15:19 Dose: 30 mg Documented by: Furosemide (Lasix) 80 mg PO QDAY PRN PRN Reason: SWELLING Ceftriaxone Sodium (Rocephin/Ns 1 Gm/50 Ml) 1 gm in 50 mls @ 100 mls/hr IV Q24HR [facility]; Protocol Last Admin: 10/27/18 15:19 Dose: 100 mls/hr Documented by: Sodium Chloride (Nacl 0.9%) 100 mls @ 999 mls/hr IV ANTOINETTE PRN PRN Reason: Hypotension Insulin Human Lispro (Humalog) 0 unit SUB-Q ACHS [facility]; Protocol Last Admin: 10/27/18 16:56 Dose: 2 unit Documented by: Isosorbide Mononitrate (Imdur) 30 mg PO QDAY [facility] Last Admin: 10/27/18 15:23 Dose: 30 mg Documented by: Lisinopril (Zestril) 5 mg PO DAILY [facility] Last Admin: 10/27/18 15:22 Dose: 5 mg Documented by: Ondansetron HCl (Zofran) 4 mg IV Q8H PRN PRN Reason: Nausea And Vomiting Oxycodone/Acetaminophen (Percocet 5/325) 1 tab PO Q6H PRN PRN Reason: Pain, Moderate (4-6) Last Admin: 10/27/18 14:34 Dose: 1 tab Documented by: Pantoprazole Sodium (Protonix) 40 mg PO BID [facility] Last Admin: 10/27/18 15:21 Dose: 40 mg Documented by: Sodium Chloride (Sodium Chloride Flush Syringe 10 Ml) 10 ml IV BID [facility] Last Admin: 10/27/18 15:19 Dose: 10 ml Documented by: Sodium Chloride (Sodium Chloride Flush Syringe 10 Ml) 10 ml IV PRN PRN PRN Reason: LINE FLUSH Medication list reviewed and updated Review of Systems - Review of Systems All systems: negative Constitutional: fatigue, weakness Cardiovascular: no chest pain Gastrointestinal: abdominal pain, no nausea, no vomiting, no hematemesis, no coffee ground emesis Musculoskeletal: joint pain Neurological: weakness Exam - Constitutional Vital Signs: Temp Pulse Resp BP Pulse Ox 98.0 F 95 H 18 113/57 99 10/27/18 10:20 10/27/18 13:15 10/27/18 11:56 10/27/18 13:15 10/27/18 07:10 General appearance: no acute distress - EENT Eyes: EOM intact ENT: hearing intact - Neck Neck: supple - Respiratory Respiratory effort: normal - Cardiovascular Rhythm: regular Heart Sounds: Present: S1 & S2 Extremity abnormal: erythema - Gastrointestinal General gastrointestinal: Present: soft, tender, non-distended, normal bowel so unds - Neurologic Neurological: alert and oriented x3 - Labs CBC & Chem 7: 10/27/18 04:14 10/27/18 04:14 Lab Results: Laboratory Results - last 24 hr 10/26/18 10/26/18 10/26/18 21:35 21:35 21:35 WBC 11.3 H RBC 3.55 L Hgb 9.9 L Hct 31.1 MCV 88 MCH 28 MCHC 32 RDW 20.9 H Plt Count 381 Lymph % (Auto) [place] % (Auto) Eos % (Auto) Baso % (Auto) Lymph # [place] # Eos # Baso # Add Manual Diff Complete Total Counted 100 Seg Neutrophils % Seg Neuts % (Manual) 81.0 H Band Neutrophils % 0 Lymphocytes % (Manual) 10.0 L Reactive Lymphs % (Man) 0 Monocytes % (Manual) 4.0 Eosinophils % (Manual) 5.0 H Basophils % (Manual) 0 Metamyelocytes % 0 Myelocytes % 0 Promyelocytes % 0 Blast Cells % 0 Nucleated RBC % Not Reportable Seg Neutrophils # Seg Neutrophils # Man 9.2 H Band Neutrophils # 0.0 Lymphocytes # (Manual) 1.1 L Abs React Lymphs (Man) 0.0 Monocytes # (Manual) 0.5 Eosinophils # (Manual) 0.6 H Basophils # (Manual) 0.0 Metamyelocytes # 0.0 Myelocytes # 0.0 Promyelocytes # 0.0 Blast Cells # 0.0 WBC Morphology Not Reportable Hypersegmented Neuts Not Reportable Hyposegmented Neuts Not Reportable Hypogranular Neuts Not Reportable Smudge Cells Not Reportable Toxic Granulation Not Reportable Toxic Vacuolation Not Reportable Dohle Bodies Not Reportable Pelger-Huet Anomaly Not Reportable Alfonzo Rods Not Reportable Platelet Estimate Appears normal Clumped Platelets Not Reportable Plt Clumps, EDTA Not Reportable Large Platelets Not Reportable Giant Platelets Not Reportable Platelet Satelliting Not Reportable Plt Morphology Comment Not Reportable RBC Morphology Not Reportable Dimorphic RBCs Not Reportable Polychromasia Not Reportable Hypochromasia Not Reportable Poikilocytosis Not Reportable Anisocytosis 1+ Microcytosis Not Reportable Macrocytosis Not Reportable Spherocytes Few Pappenheimer Bodies Not Reportable Sickle Cells Not Reportable Target Cells Rare Tear Drop Cells Rare Ovalocytes Not Reportable Helmet Cells Not Reportable [place] Bodies Not Reportable [place] Rings Not Reportable [place] Cells Not Reportable Bite Cells Not Reportable Crenated Cell Not Reportable Elliptocytes Not Reportable Acanthocytes (Spur) Not Reportable Rouleaux Not Reportable Hemoglobin C Crystals Not Reportable Schistocytes Not Reportable Malaria parasites Not Reportable Maximiliano Bodies Not Reportable Hem Pathologist Commnt No Sodium 143 Potassium 5.7 H Chloride 97.9 L Carbon Dioxide 18 L Anion Gap 33 BUN 78 H Creatinine 8.6 H Estimated GFR 6 BUN/Creatinine Ratio 9 Glucose 72 POC Glucose Lactic Acid 0.80 Calcium 9.4 Total Bilirubin < 0.20 AST 26 ALT 12 Alkaline Phosphatase 107 Total Creatine Kinase Troponin T 0.348 H* NT-Pro-B Natriuret Pep Total Protein 7.2 Albumin 4.1 Albumin/Globulin Ratio 1.3 Triglycerides 61 Cholesterol 166 LDL Cholesterol Direct 85 HDL Cholesterol 74 H Cholesterol/HDL Ratio 2.24 10/26/18 10/27/18 10/27/18 21:35 01:23 04:14 WBC 7.2 RBC 3.04 L Hgb 8.6 L Hct 26.5 L MCV 87 MCH 28 MCHC 33 RDW 20.7 H Plt Count 361 Lymph % (Auto) 9.2 L [place] % (Auto) 9.0 H Eos % (Auto) 4.5 H Baso % (Auto) 0.8 Lymph # 0.7 L [place] # 0.6 Eos # 0.3 Baso # 0.1 Add Manual Diff Total Counted Seg Neutrophils % 76.5 H Seg Neuts % (Manual) Band Neutrophils % Lymphocytes % (Manual) Reactive Lymphs % (Man) Monocytes % (Manual) Eosinophils % (Manual) Basophils % (Manual) Metamyelocytes % Myelocytes % Promyelocytes % Blast Cells % Nucleated RBC % Seg Neutrophils # 5.5 Seg Neutrophils # Man Band Neutrophils # Lymphocytes # (Manual) Abs React Lymphs (Man) Monocytes # (Manual) Eosinophils # (Manual) Basophils # (Manual) Metamyelocytes # Myelocytes # Promyelocytes # Blast Cells # WBC Morphology Hypersegmented Neuts Hyposegmented Neuts Hypogranular Neuts Smudge Cells Toxic Granulation Toxic Vacuolation Dohle Bodies Pelger-Huet Anomaly Alfonzo Rods Platelet Estimate Clumped Platelets Plt Clumps, EDTA Large Platelets Giant Platelets Platelet Satelliting Plt Morphology Comment RBC Morphology Dimorphic RBCs Polychromasia Hypochromasia Poikilocytosis Anisocytosis Microcytosis Macrocytosis Spherocytes Pappenheimer Bodies Sickle Cells Target Cells Tear Drop Cells Ovalocytes Helmet Cells [place] Bodies [place] Rings [place] Cells Bite Cells Crenated Cell Elliptocytes Acanthocytes (Spur) Rouleaux Hemoglobin C Crystals Schistocytes Malaria parasites Maximiliano Bodies Hem Pathologist Commnt Sodium Potassium Chloride Carbon Dioxide Anion Gap BUN Creatinine Estimated GFR BUN/Creatinine Ratio Glucose POC Glucose 182 H Lactic Acid Calcium Total Bilirubin AST ALT Alkaline Phosphatase Total Creatine Kinase 134 Troponin T NT-Pro-B Natriuret Pep 62903 H Total Protein Albumin Albumin/Globulin Ratio Triglycerides Cholesterol LDL Cholesterol Direct HDL Cholesterol Cholesterol/HDL Ratio 10/27/18 10/27/18 10/27/18 04:14 07:16 16:51 WBC RBC Hgb Hct MCV MCH MCHC RDW Plt Count Lymph % (Auto) [place] % (Auto) Eos % (Auto) Baso % (Auto) Lymph # [place] # Eos # Baso # Add Manual Diff Total Counted Seg Neutrophils % Seg Neuts % (Manual) Band Neutrophils % Lymphocytes % (Manual) Reactive Lymphs % (Man) Monocytes % (Manual) Eosinophils % (Manual) Basophils % (Manual) Metamyelocytes % Myelocytes % Promyelocytes % Blast Cells % Nucleated RBC % Seg Neutrophils # Seg Neutrophils # Man Band Neutrophils # Lymphocytes # (Manual) Abs React Lymphs (Man) Monocytes # (Manual) Eosinophils # (Manual) Basophils # (Manual) Metamyelocytes # Myelocytes # Promyelocytes # Blast Cells # WBC Morphology Hypersegmented Neuts Hyposegmented Neuts Hypogranular Neuts Smudge Cells Toxic Granulation Toxic Vacuolation Dohle Bodies Pelger-Huet Anomaly Alfonzo Rods Platelet Estimate Clumped Platelets Plt Clumps, EDTA Large Platelets Giant Platelets Platelet Satelliting Plt Morphology Comment RBC Morphology Dimorphic RBCs Polychromasia Hypochromasia Poikilocytosis Anisocytosis Microcytosis Macrocytosis Spherocytes Pappenheimer Bodies Sickle Cells Target Cells Tear Drop Cells Ovalocytes Helmet Cells [place] Bodies [place] Rings [place] Cells Bite Cells Crenated Cell Elliptocytes Acanthocytes (Spur) Rouleaux Hemoglobin C Crystals Schistocytes Malaria parasites Maximiliano Bodies Hem Pathologist Commnt Sodium 143 Potassium 5.3 H Chloride 97.3 L Carbon Dioxide 22 Anion Gap 29 BUN 84 H Creatinine 9.6 H Estimated GFR 5 BUN/Creatinine Ratio 9 Glucose 95 POC Glucose 138 H 170 H Lactic Acid Calcium 9.5 Total Bilirubin AST ALT Alkaline Phosphatase Total Creatine Kinase Troponin T NT-Pro-B Natriuret Pep Total Protein Albumin Albumin/Globulin Ratio Triglycerides Cholesterol LDL Cholesterol Direct HDL Cholesterol Cholesterol/HDL Ratio Assessment and Plan # Abdominal pain # Abnormal CT # PUD - Patient previously known to our service for work up of GI bleed and anemia. - EGD 08/23/2017 showed erosive gastritis and duodenitis, - colonoscopy 08/26/2017 showed liquid black stool throughout colon/poor prep but no gross lesions or obvious source of bleeding - EGD/colon 10/03/2018 that showed no gross lesions or blood in colon, nodularity of duodenum, duodenitits, gastritis, gastric ulcers (likely source of anemia), and hiatal hernia with Del's ulcer in the hiatal hernia. bx showed gastritis and negative for H pylori. - no clinical change to her abdominal pain at this time. CT findings consistent with known gastritis and duodenitis. - H/H with slight downtrend overnight but no overt signs of bleeding and likely at her baseline. - anemia likely multifactorial with known PUD and ESRD. Rec: -continue PPI BID -add carafate if abdominal pain not controlled. -monitor H/H. -continue iron supplement -avoid NSAIDs -continue supportive care - Patient Problems (1) Abdominal pain Current Visit: No Status: Acute Qualifiers: Abdominal location: left lower quadrant Qualified Code(s): R10.32 - Left lower quadrant pain
[2018-10-27 20:40] LABS: Hepatitis B Surface Antigen Non-Reactive (Negative); Hepatitis C Virus Antibody Non-Reactive (NonReactive)
[2018-10-28] MEDS: PERCOCET 5/325 PO PRN (00:34)
[2018-10-28] MEDS: HumaLOG SUB-Q SCH ×4 (07:23→22:26)
--- NOTE | 2018-10-28 09:03 | Progress Note ---
Assessment and Plan Assessment and plan: --History of GI bleeding; abdominal pain Patient had recent colonoscopy and EGD Continue current management GI evaluation and recommendations noted and appreciated Follow H&H --Type 2 diabetes mellitus; Accu-Chek sliding scale coverage and ADA diet Insulin as needed --Hypertension; continue current antihypertensives when necessary medications --Right lower extremity chronic skin changes/cellulitis Continue Rocephin, supportive care elevate the limb --End-stage renal disease; on hemodialysis HD per schedule nephrology following --Anemia of chronic disease; monitor H&H Procrit during dialysis --DVT prophylaxis; heparin renal dose Monitor closely and adjust management as needed Discharge home tomorrow if stable History Interval history: Patient seen and examined medical records reviewed No new events reported by the nursing staff Patient feels better no new complaints Vital signs noted Patient is anxious to go home Hospitalist Physical - Constitutional Vitals: Temp Pulse Resp BP Pulse Ox 99.1 F 94 H 20 120/57 100 10/28/18 07:15 10/28/18 02:53 10/28/18 07:15 10/28/18 07:15 10/28/18 02:53 General appearance: Present: no acute distress, well-nourished - EENT Eyes: Present: PERRL, EOM intact - Neck Neck: Present: supple, normal ROM - Respiratory Respiratory effort: normal Respiratory: bilateral: diminished, negative: rales, rhonchi, wheezing - Cardiovascular Rhythm: regular Heart Sounds: Present: S1 & S2 - Extremities Extremities: no ischemia, No edema - Abdominal General gastrointestinal: soft, non-tender, non-distended, normal bowel sounds - Integumentary Integumentary: Present: clear, warm - Psychiatric Psychiatric: appropriate mood/affect, cooperative - Neurologic Neurologic: CNII-XII intact, moves all extremities Results - Labs CBC & Chem 7: 10/28/18 17:09 10/27/18 04:14 Labs: Laboratory Last Values WBC 7.2 K/mm3 (4.5-11.0) 10/27/18 04:14 RBC 3.04 M/mm3 (3.65-5.03) L 10/27/18 04:14 Hgb 8.6 gm/dl (10.1-14.3) L 10/27/18 04:14 Hct 26.5 % (30.3-42.9) L 10/27/18 04:14 MCV 87 fl (79-97) 10/27/18 04:14 MCH 28 pg (28-32) 10/27/18 04:14 MCHC 33 % (30-34) 10/27/18 04:14 RDW 20.7 % (13.2-15.2) H 10/27/18 04:14 Plt Count 361 K/mm3 (140-440) 10/27/18 04:14 Lymph % (Auto) 9.2 % (13.4-35.0) L 10/27/18 04:14 [place] % (Auto) 9.0 % (0.0-7.3) H 10/27/18 04:14 Eos % (Auto) 4.5 % (0.0-4.3) H 10/27/18 04:14 Baso % (Auto) 0.8 % (0.0-1.8) 10/27/18 04:14 Lymph # 0.7 K/mm3 (1.2-5.4) L 10/27/18 04:14 [place] # 0.6 K/mm3 (0.0-0.8) 10/27/18 04:14 Eos # 0.3 K/mm3 (0.0-0.4) 10/27/18 04:14 Baso # 0.1 K/mm3 (0.0-0.1) 10/27/18 04:14 Add Manual Diff Complete 10/26/18 21:35 Total Counted 100 10/26/18 21:35 Seg Neutrophils % 76.5 % (40.0-70.0) H 10/27/18 04:14 Seg Neuts % (Manual) 81.0 % (40.0-70.0) H 10/26/18 21:35 0 % 10/26/18 21:35 10.0 % (13.4-35.0) L 10/26/18 21:35 Reactive Lymphs % (Man) 0 % 10/26/18 21:35 4.0 % (0.0-7.3) 10/26/18 21:35 5.0 % (0.0-4.3) H 10/26/18 21:35 0 % (0.0-1.8) 10/26/18 21:35 0 % 10/26/18 21:35 0 % 10/26/18 21:35 0 % 10/26/18 21:35 0 % 10/26/18 21:35 Nucleated RBC % Not Reportable 10/26/18 21:35 Seg Neutrophils # 5.5 K/mm3 (1.8-7.7) 10/27/18 04:14 Seg Neutrophils # Man 9.2 K/mm3 (1.8-7.7) H 10/26/18 21:35 Band Neutrophils # 0.0 K/mm3 10/26/18 21:35 1.1 K/mm3 (1.2-5.4) L 10/26/18 21:35 Abs React Lymphs (Man) 0.0 K/mm3 10/26/18 21:35 0.5 K/mm3 (0.0-0.8) 10/26/18 21:35 0.6 K/mm3 (0.0-0.4) H 10/26/18 21:35 0.0 K/mm3 (0.0-0.1) 10/26/18 21:35 0.0 K/mm3 10/26/18 21:35 0.0 K/mm3 10/26/18 21:35 0.0 K/mm3 10/26/18 21:35 Blast Cells # 0.0 K/mm3 10/26/18 21:35 WBC Morphology Not Reportable 10/26/18 21:35 Hypersegmented Neuts Not Reportable 10/26/18 21:35 Hyposegmented Neuts Not Reportable 10/26/18 21:35 Hypogranular Neuts Not Reportable 10/26/18 21:35 Not Reportable 10/26/18 21:35 Not Reportable 10/26/18 21:35 Not Reportable 10/26/18 21:35 Not Reportable 10/26/18 21:35 Not Reportable 10/26/18 21:35 Not Reportable 10/26/18 21:35 Appears normal 10/26/18 21:35 Not Reportable 10/26/18 21:35 Plt Clumps, EDTA Not Reportable 10/26/18 21:35 Not Reportable 10/26/18 21:35 Not Reportable 10/26/18 21:35 Not Reportable 10/26/18 21:35 Plt Morphology Comment Not Reportable 10/26/18 21:35 RBC Morphology Not Reportable 10/26/18 21:35 Dimorphic RBCs Not Reportable 10/26/18 21:35 Not Reportable 10/26/18 21:35 Not Reportable 10/26/18 21:35 Not Reportable 10/26/18 21:35 1+ 10/26/18 21:35 Not Reportable 10/26/18 21:35 Not Reportable 10/26/18 21:35 Few 10/26/18 21:35 Not Reportable 10/26/18 21:35 Not Reportable 10/26/18 21:35 Rare 10/26/18 21:35 Rare 10/26/18 21:35 Not Reportable 10/26/18 21:35 Not Reportable 10/26/18 21:35 Not Reportable 10/26/18 21:35 Not Reportable 10/26/18 21:35 Not Reportable 10/26/18 21:35 Not Reportable 10/26/18 21:35 Not Reportable 10/26/18 21:35 Not Reportable 10/26/18 21:35 Acanthocytes (Spur) Not Reportable 10/26/18 21:35 Rouleaux Not Reportable 10/26/18 21:35 Not Reportable 10/26/18 21:35 Not Reportable 10/26/18 21:35 Not Reportable 10/26/18 21:35 Not Reportable 10/26/18 21:35 Hem Pathologist Commnt No 10/26/18 21:35 Sodium 143 mmol/L (137-145) 10/27/18 04:14 Potassium 5.3 mmol/L (3.6-5.0) H 10/27/18 04:14 Chloride 97.3 mmol/L (98-107) L 10/27/18 04:14 Carbon Dioxide 22 mmol/L (22-30) 10/27/18 04:14 29 mmol/L 10/27/18 04:14 BUN 84 mg/dL (7-17) H 10/27/18 04:14 9.6 mg/dL (0.7-1.2) H 10/27/18 04:14 Estimated GFR 5 ml/min 10/27/18 04:14 9 % 10/27/18 04:14 Glucose 95 mg/dL (65-100) 10/27/18 04:14 POC Glucose 237 (70-105) H 10/28/18 07:22 Lactic Acid 0.80 mmol/L (0.7-2.0) 10/26/18 21:35 Calcium 9.5 mg/dL (8.4-10.2) 10/27/18 04:14 < 0.20 mg/dL (0.1-1.2) 10/26/18 21:35 AST 26 units/L (5-40) 10/26/18 21:35 ALT 12 units/L (7-56) 10/26/18 21:35 107 units/L (35-129) 10/26/18 21:35 134 units/L (30-135) 10/26/18 21:35 0.348 ng/mL (0.00-0.029) H* 10/26/18 21:35 NT-Pro-B Natriuret Pep 89148 pg/mL (0-900) H 10/26/18 21:35 7.2 g/dL (6.3-8.2) 10/26/18 21:35 4.1 g/dL (3.9-5) 10/26/18 21:35 1.3 % 10/26/18 21:35 Triglycerides 61 mg/dL (2-149) 10/26/18 21:35 Cholesterol 166 mg/dL (50-199) 10/26/18 21:35 85 mg/dL (50-130) 10/26/18 21:35 74 mg/dL (40-59) H 10/26/18 21:35 2.24 % 10/26/18 21:35 Hepatitis A IgM Ab Non-reactive (NonReactive) 10/27/18 19:41 Hep Bs Antigen Non-reactive (Negative) 10/27/18 19:41 Hep B Core IgM Ab Non-reactive (NonReactive) 10/27/18 19:41 Non-reactive (NonReactive) 10/27/18 19:41 Active Medications - Current Medications Current Medications: Generic Name Dose Route Start Last Admin Trade Name Freq PRN Reason Stop Dose Admin Acetaminophen 650 mg 10/27/18 03:37 10/27/18 11:56 Tylenol PO 650 mg Q4H PRN Administration Pain MILD(1-3)/Fever >100.5/PEREZ Clonidine HCl 0.1 mg 10/27/18 08:22 Catapres PO TID PRN Blood Pressure Dextrose 50 ml 10/27/18 03:48 D50w (25gm) Syringe IV PRN PRN Hypoglycemia Enoxaparin Sodium 30 mg 10/27/18 10:00 10/27/18 15:19 Lovenox SUB-Q 30 mg QDAY CALIXTO Administration Furosemide 80 mg 10/27/18 10:00 Lasix PO QDAY PRN SWELLING Ceftriaxone Sodium 1 gm in 50 mls @ 100 mls/hr 10/27/18 10:00 10/27/18 15:19 Rocephin/Ns 1 Gm/50 Ml IV 100 mls/hr Q24HR CALIXTO Administration Protocol Sodium Chloride 100 mls @ 999 mls/hr 10/27/18 06:21 Nacl 0.9% IV ANTOINETTE PRN Hypotension Insulin Human Lispro 0 unit 10/27/18 07:30 10/28/18 07:23 Humalog SUB-Q 3 unit ACHS CALIXTO Administration Protocol Isosorbide Mononitrate 30 mg 10/27/18 10:00 10/27/18 15:23 Imdur PO 30 mg QDAY CALIXTO Administration Lisinopril 5 mg 10/27/18 10:00 10/27/18 15:22 Zestril PO 5 mg DAILY CALIXTO Administration Ondansetron HCl 4 mg 10/27/18 03:37 Zofran IV Q8H PRN Nausea And Vomiting Oxycodone/Acetaminophen 1 tab 10/27/18 14:29 10/28/18 00:34 Percocet 5/325 PO 1 tab Q6H PRN Administration Pain, Moderate (4-6) Pantoprazole Sodium 40 mg 10/27/18 10:00 10/27/18 23:39 Protonix PO 40 mg BID CALIXTO Administration Sodium Chloride 10 ml 10/27/18 10:00 10/27/18 23:40 Sodium Chloride Flush Syringe 10 Ml IV 10 ml BID CALIXTO Administration Sodium Chloride 10 ml 10/27/18 03:37 Sodium Chloride Flush Syringe 10 Ml IV PRN PRN LINE FLUSH
[2018-10-28] MEDS: IMDUR PO SCH (09:22)
[2018-10-28] MEDS: ROCEPHIN/NS 1 GM/50 ML 1 GM/50 ML BAG IV SCH (09:22)
[2018-10-28] MEDS: LOVENOX SUB-Q SCH (09:22)
[2018-10-28] MEDS: ZESTRIL PO SCH (09:24)
[2018-10-28] MEDS: PROTONIX PO SCH ×2 (09:24→22:26)
[2018-10-28] MEDS: SODIUM CHLORIDE FLUSH SYRINGE 10 ML IV SCH ×2 (09:25→22:27)
--- NOTE | 2018-10-28 17:44 | Progress Note ---
Assessment and Plan 1. Abd pain - improved. Continue PPI. 2. Anemia - chronic. Recheck H/H. Subjective Date of service: 10/28/18 Interval history: Pt states abd feeling better. Complains of RLE pain and ulcer. Objective - Constitutional Vitals: Vital Signs - 12hr 10/28/18 10/28/18 10/28/18 07:15 09:22 09:24 Temperature 99.1 F Pulse Rate 97 H 97 H Pulse Rate [ Right Radial] Respiratory 20 Rate Blood Pressure 120/57 103/39 103/39 O2 Sat by Pulse Oximetry 10/28/18 10/28/18 13:42 14:00 Temperature 99.5 F Pulse Rate 96 H Pulse Rate [ 96 H Right Radial] Respiratory 18 Rate Blood Pressure 132/61 O2 Sat by Pulse 96 96 Oximetry General appearance: Present: no acute distress - EENT Eyes: PERRL, EOM intact ENT: hearing intact - Respiratory Respiratory effort: normal - Cardiovascular Rhythm: regular Heart Sounds: Present: S1 & S2 - Gastrointestinal General gastrointestinal: Present: soft, non-tender - Labs CBC & Chem 7: 10/27/18 04:14 10/27/18 04:14 Labs: Abnormal lab results 10/27/18 10/28/18 10/28/18 Range/Units 21:20 07:22 11:32 POC Glucose 194 H 237 H 159 H (70-105) 10/28/18 Range/Units 16:27 POC Glucose 192 H (70-105) Medications & Allergies - Medications Allergies/Adverse Reactions: Allergies erythromycin base [Erythromycin Base] Allergy (Verified 10/26/18 18:04) Rash PATIENT ASK ME TO REMOVEDMED ON ALLERGY LIST. Home Medications: Home Medications Medication Instructions Recorded Confirmed Last Taken Type Ferric Citrate (Nf) [Auryxia] 630 mg PO TIDWM 09/05/18 10/27/18 Unknown History Furosemide [Lasix TAB] 80 mg PO QDAY PRN 09/05/18 10/27/18 Unknown History Insulin Regular, Human [HumuLIN R] 0 unit SQ AC #1 vial 09/07/18 10/27/18 10/16/18 21:30 Rx Pantoprazole [Protonix TAB] 40 mg PO BID #60 tablet 10/03/18 10/27/18 10/16/18 20:00 Rx ISOSORBIDE MONOnitrate [Imdur ER] 30 mg PO QDAY #30 tablet 10/04/18 10/27/18 Unknown Rx Lisinopril [Zestril TAB] 5 mg PO DAILY #30 tablet 10/04/18 10/27/18 Unknown Rx cloNIDine [Catapres] 0.1 mg PO TID PRN 10/17/18 10/27/18 Unknown History Active Medications: Generic Name Dose Route Start Last Admin Trade Name Freq PRN Reason Stop Dose Admin Acetaminophen 650 mg 10/27/18 03:37 10/27/18 11:56 Tylenol PO 650 mg Q4H PRN Administration Pain MILD(1-3)/Fever >100.5/PEREZ Clonidine HCl 0.1 mg 10/27/18 08:22 Catapres PO TID PRN Blood Pressure Dextrose 50 ml 10/27/18 03:48 D50w (25gm) Syringe IV PRN PRN Hypoglycemia Enoxaparin Sodium 30 mg 10/27/18 10:00 10/28/18 09:22 Lovenox SUB-Q 30 mg QDAY CALIXTO Administration Furosemide 80 mg 10/27/18 10:00 Lasix PO QDAY PRN SWELLING Ceftriaxone Sodium 1 gm in 50 mls @ 100 mls/hr 10/27/18 10:00 10/28/18 09:22 Rocephin/Ns 1 Gm/50 Ml IV 100 mls/hr Q24HR CALIXTO Administration Protocol Sodium Chloride 100 mls @ 999 mls/hr 10/27/18 06:21 Nacl 0.9% IV ANTOINETTE PRN Hypotension Insulin Human Lispro 0 unit 10/27/18 07:30 10/28/18 16:41 Humalog SUB-Q 2 unit ACHS CALIXTO Administration Protocol Isosorbide Mononitrate 30 mg 10/27/18 10:00 10/28/18 09:22 Imdur PO 30 mg QDAY CALIXTO Administration Lisinopril 5 mg 10/27/18 10:00 10/28/18 09:24 Zestril PO Not Given DAILY CALIXTO Ondansetron HCl 4 mg 10/27/18 03:37 Zofran IV Q8H PRN Nausea And Vomiting Oxycodone/Acetaminophen 1 tab 10/27/18 14:29 10/28/18 00:34 Percocet 5/325 PO 1 tab Q6H PRN Administration Pain, Moderate (4-6) Pantoprazole Sodium 40 mg 10/27/18 10:00 10/28/18 09:24 Protonix PO 40 mg BID CALIXTO Administration Sodium Chloride 10 ml 10/27/18 10:00 10/28/18 09:25 Sodium Chloride Flush Syringe 10 Ml IV 10 ml BID CALIXTO Administration Sodium Chloride 10 ml 10/27/18 03:37 Sodium Chloride Flush Syringe 10 Ml IV PRN PRN LINE FLUSH
[2018-10-28 18:41] LABS: Basophils # (Auto) 0.1 K/mm3 (0.0-0.1); Basophils % (Auto) 1.2 % (0.0-1.8); Eosinophils # (Auto) 0.2 K/mm3 (0.0-0.4); Eosinophils % (Auto) 3.3 % (0.0-4.3); Hematocrit 27.1 % (30.3-42.9); Lymphocytes # (Auto) 0.8 K/mm3 (1.2-5.4); Lymphocytes % (Auto) 12.9 % (13.4-35.0); Mean Corpuscular HGB Conc 33 % (30-34); Mean Corpuscular Volume 88 fl (79-97); Monocytes # (Auto) 0.7 K/mm3 (0.0-0.8); Monocytes % (Auto) 10.9 % (0.0-7.3); Platelet Count 368 K/mm3 (140-440); Red Blood Count 3.09 M/mm3 (3.65-5.03)
--- NOTE | 2018-10-28 18:56 | Progress Note ---
Assessment and Plan Impression: * End stage renal disease * Right leg pain --RLE doppler negative for DVT * Hypertension * Type II DM * Recent hx of GI bleed --Colonoscopy: No gross lesions and no blood seen in the colon. Large internal and external hemorrhoids. Inadequate prep --EGD: Duodenum - nodularity biopsied to r/o adenoma. Severe duodenitis of the bulb. Deep cratered pre-pyloric clean based ulcer * Secondary hyperparathyroidism * Anemia secondary to ESRD Plan: * Paitent is s/p routine dialysis yesterday. No indication for HD today * Hemodialysis MWF * UF as tolerated * Epogen TIW prn * Continue antiHTN medications * Renal diet Subjective Date of service: 10/28/18 Interval history: Reports RLE pain improved. Objective - Vital Signs Vital signs: Vital Signs - 12hr 10/28/18 10/28/18 10/28/18 07:15 09:22 09:24 Temperature 99.1 F Pulse Rate 97 H 97 H Pulse Rate [ Right Radial] Respiratory 20 Rate Blood Pressure 120/57 103/39 103/39 O2 Sat by Pulse Oximetry 10/28/18 10/28/18 13:42 14:00 Temperature 99.5 F Pulse Rate 96 H Pulse Rate [ 96 H Right Radial] Respiratory 18 Rate Blood Pressure 132/61 O2 Sat by Pulse 96 96 Oximetry - General Appearance General appearance: well-developed EENT: ATNC Neck: no JVD Respiratory: Present: Clear to Ascultation Cardiology: regular, S1S2 Gastrointestinal: normal, no tenderness, no distended Neurologic: alert and oriented x3 Musculoskeletal: other (no edema) Psychiatric: cooperative - Lab 10/29/18 05:16 10/27/18 04:14 Most recent lab results Calcium 9.5 mg/dL (8.4-10.2) 10/27/18 04:14 Medications & Allergies - Medications Allergies/Adverse Reactions: Allergies erythromycin base [Erythromycin Base] Allergy (Verified 10/26/18 18:04) Rash PATIENT ASK ME TO REMOVEDMED ON ALLERGY LIST. Home Medications: Home Medications Medication Instructions Recorded Confirmed Last Taken Type Ferric Citrate (Nf) [Auryxia] 630 mg PO TIDWM 09/05/18 10/27/18 Unknown History Furosemide [Lasix TAB] 80 mg PO QDAY PRN 09/05/18 10/27/18 Unknown History Insulin Regular, Human [HumuLIN R] 0 unit SQ AC #1 vial 09/07/18 10/27/18 10/16/18 21:30 Rx Pantoprazole [Protonix TAB] 40 mg PO BID #60 tablet 10/03/18 10/27/18 10/16/18 20:00 Rx ISOSORBIDE MONOnitrate [Imdur ER] 30 mg PO QDAY #30 tablet 10/04/18 10/27/18 Unknown Rx Lisinopril [Zestril TAB] 5 mg PO DAILY #30 tablet 10/04/18 10/27/18 Unknown Rx cloNIDine [Catapres] 0.1 mg PO TID PRN 10/17/18 10/27/18 Unknown History Active Medications: Generic Name Dose Route Start Last Admin Trade Name Freq PRN Reason Stop Dose Admin Acetaminophen 650 mg 10/27/18 03:37 10/27/18 11:56 Tylenol PO 650 mg Q4H PRN Administration Pain MILD(1-3)/Fever >100.5/PEREZ Clonidine HCl 0.1 mg 10/27/18 08:22 Catapres PO TID PRN Blood Pressure Dextrose 50 ml 10/27/18 03:48 D50w (25gm) Syringe IV PRN PRN Hypoglycemia Enoxaparin Sodium 30 mg 10/27/18 10:00 10/28/18 09:22 Lovenox SUB-Q 30 mg QDAY CALIXTO Administration Furosemide 80 mg 10/27/18 10:00 Lasix PO QDAY PRN SWELLING Ceftriaxone Sodium 1 gm in 50 mls @ 100 mls/hr 10/27/18 10:00 10/28/18 09:22 Rocephin/Ns 1 Gm/50 Ml IV 100 mls/hr Q24HR CALIXTO Administration Protocol Sodium Chloride 100 mls @ 999 mls/hr 10/27/18 06:21 Nacl 0.9% IV ANTOINETTE PRN Hypotension Insulin Human Lispro 0 unit 10/27/18 07:30 10/28/18 16:41 Humalog SUB-Q 2 unit ACHS CALIXTO Administration Protocol Isosorbide Mononitrate 30 mg 10/27/18 10:00 10/28/18 09:22 Imdur PO 30 mg QDAY CALIXTO Administration Lisinopril 5 mg 10/27/18 10:00 10/28/18 09:24 Zestril PO Not Given DAILY CALIXTO Ondansetron HCl 4 mg 10/27/18 03:37 Zofran IV Q8H PRN Nausea And Vomiting Oxycodone/Acetaminophen 1 tab 10/27/18 14:29 10/28/18 00:34 Percocet 5/325 PO 1 tab Q6H PRN Administration Pain, Moderate (4-6) Pantoprazole Sodium 40 mg 10/27/18 10:00 10/28/18 09:24 Protonix PO 40 mg BID CALIXTO Administration Sodium Chloride 10 ml 10/27/18 10:00 10/28/18 09:25 Sodium Chloride Flush Syringe 10 Ml IV 10 ml BID CALIXTO Administration Sodium Chloride 10 ml 10/27/18 03:37 Sodium Chloride Flush Syringe 10 Ml IV PRN PRN LINE FLUSH
[2018-10-28 19:01] LABS: Red Cell Distribution Width 20.6 % (13.2-15.2)
[2018-10-29 05:38] LABS: Hematocrit 27.9 % (30.3-42.9); Hemoglobin 9.1 gm/dl (10.1-14.3); Mean Corpuscular HGB Conc 33 % (30-34); Mean Corpuscular Volume 87 fl (79-97); Platelet Count 354 K/mm3 (140-440); Red Blood Count 3.22 M/mm3 (3.65-5.03)
[2018-10-29 05:39] LABS: Red Cell Distribution Width 21.1 % (13.2-15.2)
[2018-10-29 05:59] LABS: Calcium 8.5 mg/dL (8.4-10.2)
[2018-10-29 06:16] LABS: Basophils % (Manual) 0 % (0.0-1.8); Total Cells Counted 100
[2018-10-29 06:17] LABS: Anisocytosis 1+; Hypochromasia 1+; Ovalocytes 1+; Tear Drop Cells Few
[2018-10-29 06:18] LABS: Large Platelets 1+; Platelet Estimate Consistent w Auto
[2018-10-29] MEDS: PERCOCET 5/325 PO PRN ×2 (07:23→14:30)
[2018-10-29] MEDS: HumaLOG SUB-Q SCH ×4 (07:24→22:09)
[2018-10-29] MEDS: ROCEPHIN/NS 1 GM/50 ML 1 GM/50 ML BAG IV SCH (09:22)
[2018-10-29] MEDS: SODIUM CHLORIDE FLUSH SYRINGE 10 ML IV SCH ×2 (09:22→22:10)
[2018-10-29] MEDS: IMDUR PO SCH (09:23)
[2018-10-29] MEDS: LOVENOX SUB-Q SCH (09:26)
[2018-10-29] MEDS: ZESTRIL PO SCH (09:27)
[2018-10-29] MEDS: PROTONIX PO SCH ×2 (09:27→22:09)
[2018-10-29] MEDS ORDERED: NACL 0.9% 100 ML IV PRN (10:41)
--- NOTE | 2018-10-29 12:28 | Discharge Summary ---
Providers - Providers Date of Admission: 10/27/18 01:08 Date of discharge: 10/30/18 Attending physician: LAUREEN ABEBE 10/27/18 03:38 Consult to Physician [CONS] Routine Comment: called ans. serv. / serafin Consulting Provider: JULITO ROSARIO Physician Instructions: Reason For Exam: hd 10/27/18 05:14 Consult to Physician [CONS] Routine Comment: called ans. serv./serafin Consulting Provider: MODESTO ESTRADA Physician Instructions: Reason For Exam: ab duodenum Primary care physician: FROYLAN ARREGUIN Hospitalization Reason for admission: leg swelling, missed dialysis Condition: Stable Pertinent studies: CT abdomen and pelvis; focal wall thickening with adjacent edema involving proximal duodenal and distal stomach infectious origin from a treatment diverticular or ulcer disease, possible ischemic Lower extremity arterial Dopplers; Ezio Genao atherosclerotic disease Stenosis in the proximal superficial femoral artery as well as segment of occlusion or near occlusion in the mild superficial femoral artery near occlusion of mid to distal popliteal artery Lower extremity venous Doppler; negative for DVT Hospital course: 67-year-old man with a history of hypertension, diabetes, end-stage renal disease, GERD was admitted through emergency room with complaints of right leg pain. She was in so much pain today, she missed dialysis. Patient was admitted symptomatically managed evaluated by nephrology, patient received HD per schedule Lower extremity swelling was evaluated by both venous and arterial Doppler findings as mentioned above Patient had abdominal pain, had CT abdomen and pelvis, evaluated by GI, recommended medical management As patient had recent EGD and colonoscopy, advised to follow upon discharge per schedule Patient's symptoms significantly improved today is comfortable no new complaints Vital signs stable Physical examination is unremarkable at discharge Patient also has cellulitis received empiric antibiotics Cleared by GI and nephrology for discharge and follow-up Per schedule Discharge diagnosis; --History of GI bleeding; abdominal pain Patient had recent colonoscopy and EGD GI evaluated Continue medical management Follow Outpatient --Type 2 diabetes mellitus; Accu-Chek sliding scale coverage and ADA diet Insulin as needed --Hypertension; moderate control on antihypertensives --Right lower extremity chronic skin changes/cellulitis Continue Rocephin, supportive care elevate the limb --End-stage renal disease; on hemodialysis HD per schedule nephrology following --Anemia of chronic disease; monitor H&H Procrit during dialysis --DVT prophylaxis; heparin renal dose Disposition: [id number] HOME UNDER HOME HL Time spent for discharge: 32 min Core Measure Documentation - Palliative Care Palliative Care/ Comfort Measures: Not Applicable - Core Measures Any of the following diagnoses?: none Exam - Constitutional Vitals: Temp Pulse Resp BP Pulse Ox 99.6 F 68 18 148/63 96 10/29/18 07:52 10/29/18 10:00 10/29/18 07:00 10/29/18 09:23 10/29/18 10:00 General appearance: Present: no acute distress, well-nourished - EENT Eyes: Present: PERRL, EOM intact - Neck Neck: Present: supple, normal ROM - Respiratory Respiratory effort: normal Respiratory: bilateral: diminished, negative: rales, rhonchi, wheezing - Cardiovascular Rhythm: regular Heart Sounds: Present: S1 & S2 - Extremities Extremities: no ischemia, No edema, abnormal (chronic skin changes/superficial cellulitis right lower leg) - Abdominal General gastrointestinal: Present: soft, non-tender, non-distended, normal bowel sounds - Integumentary Integumentary: Present: clear, warm - Musculoskeletal Musculoskeletal: strength equal bilaterally, generalized weakness - Psychiatric Psychiatric: appropriate mood/affect, cooperative - Neurologic Neurologic: CNII-XII intact, moves all extremities Plan Activity: advance as tolerated, fall precautions (Precautions) Diet: renal Additional Instructions: f/u Nephrology and hemodialysis per schedule TTS. Local wound care/Bactroban topical and clindamycin Follow up with: FROYLAN ARREGUIN MD [Primary Care Provider] - 3-5 Days RODRIGO RICARDO MD [Staff Physician] - 7 Days Prescriptions: Mupirocin [Bactroban 2%] 1 applic TP TID #1 tube Clindamycin [Clindamycin CAP] 300 mg PO Q6H #28 capsule oxyCODONE /ACETAMINOPHEN [Percocet 5/325] 1 tab PO BID PRN #10 tablet PRN Reason: Pain , Severe (7-10)
--- NOTE | 2018-10-29 14:49 | Progress Note ---
Assessment and Plan Impression: * End stage renal disease * Right leg pain --RLE doppler negative for DVT * Hypertension * Type II DM * Recent hx of GI bleed --Colonoscopy: No gross lesions and no blood seen in the colon. Large internal and external hemorrhoids. Inadequate prep --EGD: Duodenum - nodularity biopsied to r/o adenoma. Severe duodenitis of the bulb. Deep cratered pre-pyloric clean based ulcer * Secondary hyperparathyroidism * Anemia secondary to ESRD Plan: * Paitent is s/p routine dialysis Tuesday. Hemodialysis today * UF as tolerated * Outpatient hemodialysis TTS schedule * Epogen TIW prn * Continue antiHTN medications * Renal diet * Stable for d/c from a renal standpoint Subjective Date of service: 10/29/18 Interval history: Patient seen during dialysis. She is resting comfortably. Objective - Vital Signs Vital signs: Vital Signs - 12hr 10/29/18 10/29/18 10/29/18 07:00 07:52 09:23 Temperature 99.6 F 99.6 F Pulse Rate 93 H 93 H 68 Pulse Rate [ Right Radial] Respiratory 18 Rate Blood Pressure 150/66 148/63 Blood Pressure 150/66 [Right] O2 Sat by Pulse 96 96 Oximetry 10/29/18 10/29/18 09:47 10:00 Temperature Pulse Rate Pulse Rate [ 68 Right Radial] Respiratory Rate Blood Pressure Blood Pressure [Right] O2 Sat by Pulse 96 96 Oximetry - General Appearance General appearance: well-developed, frail EENT: ATNC Respiratory: Present: Clear to Ascultation Cardiology: regular, S1S2 Gastrointestinal: normal, no tenderness, no distended Musculoskeletal: other (trace edema) Psychiatric: cooperative - Lab 10/29/18 05:16 10/29/18 05:16 Most recent lab results Calcium 8.5 mg/dL (8.4-10.2) 10/29/18 05:16 Medications & Allergies - Medications Allergies/Adverse Reactions: Allergies erythromycin base [Erythromycin Base] Allergy (Verified 10/26/18 18:04) Rash PATIENT ASK ME TO REMOVEDMED ON ALLERGY LIST. Home Medications: Home Medications Medication Instructions Recorded Confirmed Last Taken Type Ferric Citrate (Nf) [Auryxia] 630 mg PO TIDWM 09/05/18 10/27/18 Unknown History Insulin Regular, Human [HumuLIN R] 0 unit SQ AC #1 vial 09/07/18 10/27/18 10/16/18 21:30 Rx Pantoprazole [Protonix TAB] 40 mg PO BID #60 tablet 10/03/18 10/27/18 10/16/18 20:00 Rx ISOSORBIDE MONOnitrate [Imdur ER] 30 mg PO QDAY #30 tablet 10/04/18 10/27/18 Unknown Rx Lisinopril [Zestril TAB] 5 mg PO DAILY #30 tablet 10/04/18 10/27/18 Unknown Rx cloNIDine [Catapres] 0.1 mg PO TID PRN 10/17/18 10/27/18 Unknown History Clindamycin [Clindamycin CAP] 300 mg PO Q6H #28 capsule 10/29/18 Unknown Rx Mupirocin [Bactroban 2%] 1 applic TP TID #1 tube 10/29/18 Unknown Rx oxyCODONE /ACETAMINOPHEN [Percocet 1 tab PO BID PRN #10 tablet 10/29/18 Unknown Rx 5/325] Active Medications: Generic Name Dose Route Start Last Admin Trade Name Freq PRN Reason Stop Dose Admin Acetaminophen 650 mg 10/27/18 03:37 10/27/18 11:56 Tylenol PO 650 mg Q4H PRN Administration Pain MILD(1-3)/Fever >100.5/PEREZ Clonidine HCl 0.1 mg 10/27/18 08:22 Catapres PO TID PRN Blood Pressure Dextrose 50 ml 10/27/18 03:48 D50w (25gm) Syringe IV PRN PRN Hypoglycemia Enoxaparin Sodium 30 mg 10/27/18 10:00 10/29/18 09:26 Lovenox SUB-Q 30 mg QDAY CALIXTO Administration Furosemide 80 mg 10/27/18 10:00 Lasix PO QDAY PRN SWELLING Ceftriaxone Sodium 1 gm in 50 mls @ 100 mls/hr 10/27/18 10:00 10/29/18 09:22 Rocephin/Ns 1 Gm/50 Ml IV 100 mls/hr Q24HR CALIXTO Administration Protocol Sodium Chloride 100 mls @ 999 mls/hr 10/27/18 06:21 Nacl 0.9% IV ANTOINETTE PRN Hypotension Sodium Chloride 100 mls @ 999 mls/hr 10/29/18 10:41 Nacl 0.9% IV ANTOINETTE PRN Hypotension Insulin Human Lispro 0 unit 10/27/18 07:30 10/29/18 11:23 Humalog SUB-Q Not Given ACHS [facility] Protocol Isosorbide Mononitrate 30 mg 10/27/18 10:00 10/29/18 09:23 Imdur PO 30 mg QDAY CALIXTO Administration Lisinopril 5 mg 10/27/18 10:00 10/29/18 09:27 Zestril PO 5 mg DAILY CALIXTO Administration Ondansetron HCl 4 mg 10/27/18 03:37 Zofran IV Q8H PRN Nausea And Vomiting Oxycodone/Acetaminophen 1 tab 10/27/18 14:29 10/29/18 07:23 Percocet 5/325 PO 1 tab Q6H PRN Administration Pain, Moderate (4-6) Pantoprazole Sodium 40 mg 10/27/18 10:00 10/29/18 09:27 Protonix PO 40 mg BID CALIXTO Administration Sodium Chloride 10 ml 10/27/18 10:00 10/29/18 09:22 Sodium Chloride Flush Syringe 10 Ml IV 10 ml BID CALIXTO Administration Sodium Chloride 10 ml 10/27/18 03:37 Sodium Chloride Flush Syringe 10 Ml IV PRN PRN LINE FLUSH
[2018-10-30] MEDS: PERCOCET 5/325 PO PRN (03:17)
[2018-10-30] MEDS: HumaLOG SUB-Q SCH (07:45)
--- NOTE | 2018-10-30 09:17 | Progress Note ---
Assessment and Plan Assessment and plan: --History of GI bleeding; abdominal pain Patient had recent colonoscopy and EGD no new episodes of bleeding Continue current management GI evaluated,monitor H and H --Type 2 diabetes mellitus; Accu-Chek sliding scale coverage and ADA diet Insulin as needed --Hypertension; continue current antihypertensives when necessary medications --Right lower extremity chronic skin changes/cellulitis Continue Rocephin, supportive care elevate the limb --End-stage renal disease; on hemodialysis HD per schedule nephrology following --Anemia of chronic disease; monitor H&H Procrit during dialysis --DVT prophylaxis; heparin renal dose Monitor closely and adjust management as needed Discharge home tomorrow if stable History Interval history: Patient has no new complaints vital signs stable Hospitalist Physical - Constitutional Vitals: Temp Pulse Resp BP Pulse Ox 100.0 F H 101 H 18 142/70 98 10/30/18 02:41 10/30/18 03:00 10/30/18 04:17 10/30/18 02:41 10/30/18 09:04 General appearance: Present: no acute distress, well-nourished - EENT Eyes: Present: PERRL, EOM intact - Neck Neck: Present: supple, normal ROM - Respiratory Respiratory effort: normal Respiratory: bilateral: diminished, negative: rales, rhonchi, wheezing - Cardiovascular Rhythm: regular Heart Sounds: Present: S1 & S2 - Extremities Extremities: no ischemia, pulses intact - Abdominal General gastrointestinal: soft, non-tender, non-distended, normal bowel sounds - Integumentary Integumentary: Present: clear, warm - Psychiatric Psychiatric: appropriate mood/affect, cooperative - Neurologic Neurologic: moves all extremities Results - Labs CBC & Chem 7: 10/29/18 05:16 10/29/18 05:16 Labs: Laboratory Last Values WBC 5.6 K/mm3 (4.5-11.0) 10/29/18 05:16 RBC 3.22 M/mm3 (3.65-5.03) L 10/29/18 05:16 Hgb 9.1 gm/dl (10.1-14.3) L 10/29/18 05:16 Hct 27.9 % (30.3-42.9) L 10/29/18 05:16 MCV 87 fl (79-97) 10/29/18 05:16 MCH 28 pg (28-32) 10/29/18 05:16 MCHC 33 % (30-34) 10/29/18 05:16 RDW 21.1 % (13.2-15.2) H 10/29/18 05:16 Plt Count 354 K/mm3 (140-440) 10/29/18 05:16 Lymph % (Auto) 12.9 % (13.4-35.0) L 10/28/18 17:09 [place] % (Auto) 10.9 % (0.0-7.3) H 10/28/18 17:09 Eos % (Auto) 3.3 % (0.0-4.3) 10/28/18 17:09 Baso % (Auto) 1.2 % (0.0-1.8) 10/28/18 17:09 Lymph # 0.8 K/mm3 (1.2-5.4) L 10/28/18 17:09 [place] # 0.7 K/mm3 (0.0-0.8) 10/28/18 17:09 Eos # 0.2 K/mm3 (0.0-0.4) 10/28/18 17:09 Baso # 0.1 K/mm3 (0.0-0.1) 10/28/18 17:09 Add Manual Diff Complete 10/29/18 05:16 Total Counted 100 10/29/18 05:16 Seg Neutrophils % 71.7 % (40.0-70.0) H 10/28/18 17:09 Seg Neuts % (Manual) 75.0 % (40.0-70.0) H 10/29/18 05:16 0 % 10/29/18 05:16 12.0 % (13.4-35.0) L 10/29/18 05:16 Reactive Lymphs % (Man) 0 % 10/29/18 05:16 6.0 % (0.0-7.3) 10/29/18 05:16 7.0 % (0.0-4.3) H 10/29/18 05:16 0 % (0.0-1.8) 10/29/18 05:16 0 % 10/29/18 05:16 0 % 10/29/18 05:16 0 % 10/29/18 05:16 0 % 10/29/18 05:16 Nucleated RBC % Not Reportable 10/29/18 05:16 Seg Neutrophils # 4.4 K/mm3 (1.8-7.7) 10/28/18 17:09 Seg Neutrophils # Man 4.2 K/mm3 (1.8-7.7) 10/29/18 05:16 Band Neutrophils # 0.0 K/mm3 10/29/18 05:16 0.7 K/mm3 (1.2-5.4) L 10/29/18 05:16 Abs React Lymphs (Man) 0.0 K/mm3 10/29/18 05:16 0.3 K/mm3 (0.0-0.8) 10/29/18 05:16 0.4 K/mm3 (0.0-0.4) 10/29/18 05:16 0.0 K/mm3 (0.0-0.1) 10/29/18 05:16 0.0 K/mm3 10/29/18 05:16 0.0 K/mm3 10/29/18 05:16 0.0 K/mm3 10/29/18 05:16 Blast Cells # 0.0 K/mm3 10/29/18 05:16 WBC Morphology Not Reportable 10/29/18 05:16 Hypersegmented Neuts Not Reportable 10/29/18 05:16 Hyposegmented Neuts Not Reportable 10/29/18 05:16 Hypogranular Neuts Not Reportable 10/29/18 05:16 Not Reportable 10/29/18 05:16 Not Reportable 10/29/18 05:16 Not Reportable 10/29/18 05:16 Not Reportable 10/29/18 05:16 Not Reportable 10/29/18 05:16 Not Reportable 10/29/18 05:16 Consistent w auto 10/29/18 05:16 Not Reportable 10/29/18 05:16 Plt Clumps, EDTA Not Reportable 10/29/18 05:16 1+ 10/29/18 05:16 Not Reportable 10/29/18 05:16 Not Reportable 10/29/18 05:16 Plt Morphology Comment Not Reportable 10/29/18 05:16 RBC Morphology Not Reportable 10/29/18 05:16 Dimorphic RBCs Not Reportable 10/29/18 05:16 Not Reportable 10/29/18 05:16 1+ 10/29/18 05:16 Not Reportable 10/29/18 05:16 1+ 10/29/18 05:16 Not Reportable 10/29/18 05:16 Not Reportable 10/29/18 05:16 Not Reportable 10/29/18 05:16 Not Reportable 10/29/18 05:16 Not Reportable 10/29/18 05:16 Not Reportable 10/29/18 05:16 Few 10/29/18 05:16 1+ 10/29/18 05:16 Not Reportable 10/29/18 05:16 Not Reportable 10/29/18 05:16 Not Reportable 10/29/18 05:16 Not Reportable 10/29/18 05:16 Not Reportable 10/29/18 05:16 Not Reportable 10/29/18 05:16 Not Reportable 10/29/18 05:16 Acanthocytes (Spur) Not Reportable 10/29/18 05:16 Rouleaux Not Reportable 10/29/18 05:16 Not Reportable 10/29/18 05:16 Not Reportable 10/29/18 05:16 Not Reportable 10/29/18 05:16 Not Reportable 10/29/18 05:16 Hem Pathologist Commnt No 10/29/18 05:16 Sodium 138 mmol/L (137-145) 10/29/18 05:16 Potassium 4.3 mmol/L (3.6-5.0) 10/29/18 05:16 Chloride 91.1 mmol/L (98-107) L 10/29/18 05:16 Carbon Dioxide 26 mmol/L (22-30) 10/29/18 05:16 25 mmol/L 10/29/18 05:16 BUN 52 mg/dL (7-17) H 10/29/18 05:16 7.3 mg/dL (0.7-1.2) H 10/29/18 05:16 Estimated GFR 7 ml/min 10/29/18 05:16 7 % 10/29/18 05:16 Glucose 136 mg/dL (65-100) H 10/29/18 05:16 POC Glucose 184 (70-105) H 10/30/18 07:39 Lactic Acid 0.80 mmol/L (0.7-2.0) 10/26/18 21:35 Calcium 8.5 mg/dL (8.4-10.2) 10/29/18 05:16 < 0.20 mg/dL (0.1-1.2) 10/26/18 21:35 AST 26 units/L (5-40) 10/26/18 21:35 ALT 12 units/L (7-56) 10/26/18 21:35 107 units/L (35-129) 10/26/18 21:35 134 units/L (30-135) 10/26/18 21:35 0.348 ng/mL (0.00-0.029) H* 10/26/18 21:35 NT-Pro-B Natriuret Pep 92806 pg/mL (0-900) H 10/26/18 21:35 7.2 g/dL (6.3-8.2) 10/26/18 21:35 4.1 g/dL (3.9-5) 10/26/18 21:35 1.3 % 10/26/18 21:35 Triglycerides 61 mg/dL (2-149) 10/26/18 21:35 Cholesterol 166 mg/dL (50-199) 10/26/18 21:35 85 mg/dL (50-130) 10/26/18 21:35 74 mg/dL (40-59) H 10/26/18 21:35 2.24 % 10/26/18 21:35 Hepatitis A IgM Ab Non-reactive (NonReactive) 10/27/18 19:41 Hep Bs Antigen Non-reactive (Negative) 10/27/18 19:41 Hep B Core IgM Ab Non-reactive (NonReactive) 10/27/18 19:41 Non-reactive (NonReactive) 10/27/18 19:41 Active Medications - Current Medications Current Medications: Generic Name Dose Route Start Last Admin Trade Name Freq PRN Reason Stop Dose Admin Acetaminophen 650 mg 10/27/18 03:37 10/27/18 11:56 Tylenol PO 650 mg Q4H PRN Administration Pain MILD(1-3)/Fever >100.5/PEREZ Clonidine HCl 0.1 mg 10/27/18 08:22 Catapres PO TID PRN Blood Pressure Dextrose 50 ml 10/27/18 03:48 D50w (25gm) Syringe IV PRN PRN Hypoglycemia Enoxaparin Sodium 30 mg 10/27/18 10:00 10/29/18 09:26 Lovenox SUB-Q 30 mg QDAY CALIXTO Administration Furosemide 80 mg 10/27/18 10:00 Lasix PO QDAY PRN SWELLING Ceftriaxone Sodium 1 gm in 50 mls @ 100 mls/hr 10/27/18 10:00 10/29/18 09:22 Rocephin/Ns 1 Gm/50 Ml IV 100 mls/hr Q24HR CALIXTO Administration Protocol Sodium Chloride 100 mls @ 999 mls/hr 10/27/18 06:21 Nacl 0.9% IV ANTOINETTE PRN Hypotension Sodium Chloride 100 mls @ 999 mls/hr 10/29/18 10:41 Nacl 0.9% IV ANTOINETTE PRN Hypotension Insulin Human Lispro 0 unit 10/27/18 07:30 10/30/18 07:45 Humalog SUB-Q 2 unit ACHS CALIXTO Administration Protocol Isosorbide Mononitrate 30 mg 10/27/18 10:00 10/29/18 09:23 Imdur PO 30 mg QDAY CALIXTO Administration Lisinopril 5 mg 10/27/18 10:00 10/29/18 09:27 Zestril PO 5 mg DAILY CALIXTO Administration Ondansetron HCl 4 mg 10/27/18 03:37 Zofran IV Q8H PRN Nausea And Vomiting Oxycodone/Acetaminophen 1 tab 10/27/18 14:29 10/30/18 03:17 Percocet 5/325 PO 1 tab Q6H PRN Administration Pain, Moderate (4-6) Pantoprazole Sodium 40 mg 10/27/18 10:00 10/29/18 22:09 Protonix PO 40 mg BID CALIXTO Administration Sodium Chloride 10 ml 10/27/18 10:00 10/29/18 22:10 Sodium Chloride Flush Syringe 10 Ml IV 10 ml BID CALIXTO Administration Sodium Chloride 10 ml 10/27/18 03:37 Sodium Chloride Flush Syringe 10 Ml IV PRN PRN LINE FLUSH
--- NOTE | 2018-10-30 09:26 | Progress Note ---
Subjective Interval history: Patient was seen today for follow-up on multiple renal related issues Events of this hospitalization noted Admitted after missing dialysis treatment Patient denies having any chest pain pressure or shortness of breath Vitals labs intake output medications were reviewed Social history: Reviewed Allergies: Reviewed Family history: Reviewed Physical examination HEENT: Oral mucosa moist no pallor or icterus Neck: Supple no JVD Chest: Clear to auscultation anteriorly CVS: Regular rate and rhythm S1 and S2 heard Abdomen: Soft nontender no suprapubic masses no organomegaly appreciable Extremity: Dry skin no edema Musculoskeletal: No joint effusion noted in knees and ankle Neurological: Alert awake Dermatology: No petechial rashes Psychiatry: No evidence of any agitation and aggression noted Assessment and plan; End-stage renal disease: Patient will continue with hemodialysis 3 times a week, from dialysis standpoint her potassium is 4.3 bicarbonate 26 hemoglobin 9.1 Her normal dialysis days are Tuesday, patient is feeling much better she was educated to comply with treatment recommendations and not to miss dialysis treatments Right leg pain, negative for DVT History of GI bleed patient needs to follow-up with gastroenterology service Noted to have the hemorrhoids, duodenal abnormality being ruled out for adenoma duodenitis of the bald as well as ulcer Anemia in end-stage renal disease: Monitor hemoglobin and hematocrit, erythropoietin as needed , has had history of GI bleed with obvious lesion that she will need to follow-up with gastroenterology Patient was advised to avoid any non steroidal drugs, also recommend avoiding any form of Renvela or Renagel Secondary hyperparathyroidism periodically check phosphorus and PTH level, goal phosphorus less than 5.5 PTH less than 600, educated about renal osteodystrophy Hypertension and volume: , Adjust medications as needed, ultrafiltration as tolerated keep systolic blood pressure above 100 Malnutrition risk: High please consider high protein diet as well as nutrition follow-up, patient needs at least 1.5 g protein per KG body weight Dialysis access: Currently working well, discussed about monitoring Dietary counseling and education: Done at length to improve outcome with end- stage renal disease Patient was also educated about the hospital related comorbidities Overall prognosis appears to be guarded due to end-stage renal disease, dialysis status and other comorbidities Patient was adequately counseled and educated regarding multiple renal related issues Pertinent lab findings were discussed with patient and patient does exhibit good understanding of renal issues. We'll continue to follow and make recommendation from renal standpoint Objective - Vital Signs Vital signs: Vital Signs - 12hr 10/29/18 10/30/18 10/30/18 22:00 02:41 03:00 Temperature 100.0 F H Pulse Rate 101 H Pulse Rate [ 93 H Right Radial] Respiratory 20 Rate Blood Pressure 142/70 O2 Sat by Pulse 95 100 Oximetry 10/30/18 10/30/18 10/30/18 03:17 04:17 09:04 Temperature Pulse Rate Pulse Rate [ Right Radial] Respiratory 18 18 Rate Blood Pressure O2 Sat by Pulse 98 Oximetry - Lab 10/29/18 05:16 10/29/18 05:16 Most recent lab results Calcium 8.5 mg/dL (8.4-10.2) 10/29/18 05:16 Medications & Allergies - Medications Allergies/Adverse Reactions: Allergies erythromycin base [Erythromycin Base] Allergy (Verified 10/26/18 18:04) Rash PATIENT ASK ME TO REMOVEDMED ON ALLERGY LIST. Home Medications: Home Medications Medication Instructions Recorded Confirmed Last Taken Type Ferric Citrate (Nf) [Auryxia] 630 mg PO TIDWM 09/05/18 10/27/18 Unknown History Insulin Regular, Human [HumuLIN R] 0 unit SQ AC #1 vial 09/07/18 10/27/18 10/16/18 21:30 Rx Pantoprazole [Protonix TAB] 40 mg PO BID #60 tablet 10/03/18 10/27/18 10/16/18 20:00 Rx ISOSORBIDE MONOnitrate [Imdur ER] 30 mg PO QDAY #30 tablet 10/04/18 10/27/18 Unknown Rx Lisinopril [Zestril TAB] 5 mg PO DAILY #30 tablet 10/04/18 10/27/18 Unknown Rx cloNIDine [Catapres] 0.1 mg PO TID PRN 10/17/18 10/27/18 Unknown History Clindamycin [Clindamycin CAP] 300 mg PO Q6H #28 capsule 10/29/18 Unknown Rx Mupirocin [Bactroban 2%] 1 applic TP TID #1 tube 10/29/18 Unknown Rx oxyCODONE /ACETAMINOPHEN [Percocet 1 tab PO BID PRN #10 tablet 10/29/18 Unknown Rx 5/325] Active Medications: Generic Name Dose Route Start Last Admin Trade Name Freq PRN Reason Stop Dose Admin Acetaminophen 650 mg 10/27/18 03:37 10/27/18 11:56 Tylenol PO 650 mg Q4H PRN Administration Pain MILD(1-3)/Fever >100.5/PEREZ Clonidine HCl 0.1 mg 10/27/18 08:22 Catapres PO TID PRN Blood Pressure Dextrose 50 ml 10/27/18 03:48 D50w (25gm) Syringe IV PRN PRN Hypoglycemia Enoxaparin Sodium 30 mg 10/27/18 10:00 10/29/18 09:26 Lovenox SUB-Q 30 mg QDAY CALIXTO Administration Furosemide 80 mg 10/27/18 10:00 Lasix PO QDAY PRN SWELLING Ceftriaxone Sodium 1 gm in 50 mls @ 100 mls/hr 10/27/18 10:00 10/29/18 09:22 Rocephin/Ns 1 Gm/50 Ml IV 100 mls/hr Q24HR CALIXTO Administration Protocol Sodium Chloride 100 mls @ 999 mls/hr 10/27/18 06:21 Nacl 0.9% IV ANTOINETTE PRN Hypotension Sodium Chloride 100 mls @ 999 mls/hr 10/29/18 10:41 Nacl 0.9% IV ANTOINETTE PRN Hypotension Insulin Human Lispro 0 unit 10/27/18 07:30 10/30/18 07:45 Humalog SUB-Q 2 unit ACHS CALIXTO Administration Protocol Isosorbide Mononitrate 30 mg 10/27/18 10:00 10/29/18 09:23 Imdur PO 30 mg QDAY CALIXTO Administration Lisinopril 5 mg 10/27/18 10:00 10/29/18 09:27 Zestril PO 5 mg DAILY CALIXTO Administration Ondansetron HCl 4 mg 10/27/18 03:37 Zofran IV Q8H PRN Nausea And Vomiting Oxycodone/Acetaminophen 1 tab 10/27/18 14:29 10/30/18 03:17 Percocet 5/325 PO 1 tab Q6H PRN Administration Pain, Moderate (4-6) Pantoprazole Sodium 40 mg 10/27/18 10:00 10/29/18 22:09 Protonix PO 40 mg BID CALIXTO Administration Sodium Chloride 10 ml 10/27/18 10:00 10/29/18 22:10 Sodium Chloride Flush Syringe 10 Ml IV 10 ml BID CALIXTO Administration Sodium Chloride 10 ml 10/27/18 03:37 Sodium Chloride Flush Syringe 10 Ml IV PRN PRN LINE FLUSH
[2018-10-30] MEDS: ZESTRIL PO SCH (09:39)
[2018-10-30] MEDS: IMDUR PO SCH (09:39)
[2018-10-30] MEDS: ROCEPHIN/NS 1 GM/50 ML 1 GM/50 ML BAG IV SCH (09:40)
[2018-10-30] MEDS: SODIUM CHLORIDE FLUSH SYRINGE 10 ML IV SCH (09:40)
[2018-10-30] MEDS: LOVENOX SUB-Q SCH (09:41)
[2018-10-30] MEDS: PROTONIX PO SCH (09:42)
[2018-10-30 10:06] VITALS: BP 137/61
== END 2018-10-30 14:25 | disposition home health service (06) | DRG 602 ==
LOC: ED 18:02 → 2B-ACE 10-27 01:08
PROVIDERS: ADMIT Internal Medicine; ATTEND Internal Medicine
PROC: 5A1D70Z Performance of Urinary Filtration, Intermittent, Less than 6 Hours Per Day (ICD-10-PCS; principal; 2018-10-27)
PROC: 5A1D70Z Performance of Urinary Filtration, Intermittent, Less than 6 Hours Per Day (ICD-10-PCS; 2018-10-29)
DX: L03.115 Cellulitis of right lower limb (principal); N18.6 End stage renal disease; I12.0 Hypertensive chronic kidney disease with stage 5 chronic kidney disease or end stage renal disease; N25.81 Secondary hyperparathyroidism of renal origin; E87.5 Hyperkalemia; E11.22 Type 2 diabetes mellitus with diabetic chronic kidney disease; K29.80 Duodenitis without bleeding; D63.1 Anemia in chronic kidney disease; K27.9 Peptic ulcer, site unspecified, unspecified as acute or chronic, without hemorrhage or perforation; K21.9 Gastro-esophageal reflux disease without esophagitis; Z99.2 Dependence on renal dialysis; Z82.49 Family history of ischemic heart disease and other diseases of the circulatory system; Z79.4 Long term (current) use of insulin; Z79.899 Other long term (current) drug therapy; Z88.1 Allergy status to other antibiotic agents
CPT/HCPCS: 36415; 74176; 80048; 80053; 80061; 80074; 82140; 82550; 82962; 83880; 84484; 85007; 85025; 87040; 93005; 93010; 96374; G0378; J0696; J1650; J1815; J7030

== ENCOUNTER 2018-11-14 20:12 | Emergency (ER) | payer MEDICARE ==
[2018-11-14 20:31] VITALS: BP 122/60
--- NOTE | 2018-11-14 21:13 | Event Note ---
ED Screening Note ED Screening Note: several complaints anxiety r foot pain lives senior apartments here recently with low blood counts vss nad This initial assessment/diagnostic orders/clinical plan/treatment(s) is/are subject to change based on patients health status, clinical progression and re- assessment by fellow clinical providers in the ED. Further treatment and workup at subsequent clinical providers discretion. Patient/guardian urged not to elope from the ED as their condition may be serious if not clinically assessed and man aged. Initial orders include:
[2018-11-14 21:46] LABS: Hematocrit 27.9 % (30.3-42.9); Hemoglobin 9.5 gm/dl (10.1-14.3); Mean Corpuscular HGB Conc 34 % (30-34); Mean Corpuscular Volume 83 fl (79-97); Platelet Count 350 K/mm3 (140-440); Red Blood Count 3.35 M/mm3 (3.65-5.03); Red Cell Distribution Width 19.5 % (13.2-15.2)
[2018-11-15 01:01] LABS: Calcium 9.3 mg/dL (8.4-10.2)
--- NOTE | 2018-11-15 01:51 | Emergency Department Report ---
HPI - General Chief Complaint: Extremity Injury, Lower Time Seen by Provider: 11/14/18 21:11 - HPI HPI: 68-year-old -Armenian female presents to the emergency department with the main complaint of right foot and lower leg pain. This appears to be an acute on chronic issue for her. The patient has been seen at this facility multiple times for this, and she also admits to having been seen at [facility]. She was here in early October and diagnosed with a right lower extremity cellulitis. At that time she had a venous and arterial Doppler that did not show any signs of DVT but did show peripheral vascular disease. She has a small wound to the anterior right ankle and top of her foot that started when her shoes and socks were rubbing. Patient says that she has seen her primary care physician, Dr. Froylan Arreguin, a few weeks ago and was given referrals for a wound care clinic and vascular surgeon. The patient says that she has an appointment on November 29 with wound care but has not been able to make an appointment with the vascular physician yet. She has a past medical history of diabetes, GERD, hypertension, end-stage renal disease on hemodialysis on Tuesday//Tuesday. The patient also says that she is been told in the past that she has peripheral neuropathy but she does not think it is an accurate diagnosis. She has never seen a corporate specialist. No recent travel or sick contacts at home. ED Past Medical Hx - Past Medical History Hx Hypertension: Yes Hx CVA: No Hx Heart Attack/AMI: No Hx Congestive Heart Failure: No Hx Diabetes: Yes Hx Deep Vein Thrombosis: No Hx Pulmonary Embolism: No Hx GERD: Yes Hx Liver Disease: No Hx Renal Disease: Yes (HD ,,Tue) Hx Sickle Cell Disease: No Hx Arthritis: No Hx Headaches / Migraines: No Hx Seizures: No Hx Kidney Stones: No Hx Psychiatric Treatment: No Hx Asthma: No Hx COPD: No Hx Tuberculosis: No Hx Dementia: No Hx HIV: No Additional medical history: anemia - Surgical History Hx Coronary Stent: No Hx Open Heart Surgery: No Hx Pacemaker: No Hx Internal Defibrillator: No Hx Cholecystectomy: No Hx Appendectomy: No Hx Breast Surgery: No Additional Surgical History: graft left arm - Social History Smoking Status: Never Smoker - Medications Home Medications: Home Medications Medication Instructions Recorded Confirmed Last Taken Type Ferric Citrate (Nf) [Auryxia] 630 mg PO TIDWM 09/05/18 10/27/18 Unknown History Insulin Regular, Human [HumuLIN R] 0 unit SQ AC #1 vial 09/07/18 10/27/18 10/16/18 21:30 Rx Pantoprazole [Protonix TAB] 40 mg PO BID #60 tablet 10/03/18 10/27/18 10/16/18 20:00 Rx ISOSORBIDE MONOnitrate [Imdur ER] 30 mg PO QDAY #30 tablet 10/04/18 10/27/18 Unknown Rx Lisinopril [Zestril TAB] 5 mg PO DAILY #30 tablet 10/04/18 10/27/18 Unknown Rx cloNIDine [Catapres] 0.1 mg PO TID PRN 10/17/18 10/27/18 Unknown History Clindamycin [Clindamycin CAP] 300 mg PO Q6H #28 capsule 10/29/18 Unknown Rx Mupirocin [Bactroban 2%] 1 applic TP TID #1 tube 10/29/18 Unknown Rx oxyCODONE /ACETAMINOPHEN [Percocet 1 tab PO BID PRN #10 tablet 10/29/18 Unknown Rx 5/325] HYDROcodone/APAP 5-325 [[place] 1 each PO Q6H PRN #12 tablet 11/15/18 Unknown Rx 5/325] ED Review of Systems ROS: Stated complaint: SOB/LEG PAIN ANXIETY Other details as noted in HPI Comment: All other systems reviewed and negative Constitutional: denies: chills, fever Eyes: denies: eye pain, vision change ENT: denies: ear pain, throat pain Respiratory: denies: cough, shortness of breath Cardiovascular: denies: chest pain, palpitations Gastrointestinal: denies: abdominal pain, vomiting Genitourinary: denies: dysuria, discharge Musculoskeletal: arthralgia, myalgia Skin: lesions. denies: pruritus Neurological: denies: headache, numbness Physical Exam - Physical Exam Vital Signs: Vital Signs 11/14/18 20:27 Temperature 98.6 F Pulse Rate 95 H Respiratory 16 Rate Blood Pressure 122/60 O2 Sat by Pulse 100 Oximetry Physical Exam: GENERAL: The patient is well-developed well-nourished. HENT: Normocephalic. Atraumatic. Patient has moist mucous membranes. EYES: Extraocular motions are intact. NECK: Supple. Trachea is midline. CHEST/LUNGS: Clear to auscultation. There is no respiratory distress noted. HEART/CARDIOVASCULAR: Regular. There is no tachycardia. There is no murmur. ABDOMEN: Abdomen is soft, nontender. There is no abdominal distention. SKIN: There is a small circular superficial ulcer/wound to the anterior right ankle and superior foot. No current bleeding, weeping, drainage. No surrounding erythema. No fluctuance. NEURO: The patient is awake, alert, and oriented. The patient is cooperative. The patient has normal speech. MUSCULOSKELETAL: Unable to reproduce the right foot pain to palpation. There is no limitation range of motion. There is no evidence of acute injury. ED Course Vital Signs 11/14/18 20:27 Temperature 98.6 F Pulse Rate 95 H Respiratory 16 Rate Blood Pressure 122/60 O2 Sat by Pulse 100 Oximetry ED Medical Decision Making - Lab Data Result diagrams: 11/14/18 21:22 11/14/18 22:01 - Radiology Data Radiology results: image reviewed interpreted by me: X-ray of the right foot and tib-fib do not show any fractures, dislocations or signs of osteomyelitis. - Medical Decision Making This patient may have talked about many different complaints in triage but her main complaint, and only complaint to me, was this acute on chronic right foot pain and concern for this chronic wound on her foot. The patient was recently here for similar symptoms and had a venous and arterial Doppler ultrasound done that shows peripheral vascular disease. Today, an x-ray was done of the right foot and tib-fib that did not show any fractures, dislocations, or signs of osteomyelitis. Patient's labs were unremarkable including no leukocytosis. She has some renal insufficiency but she has chronic kidney disease on hemodialysis and there are no electrolyte abnormalities. She does have a small superficial ulcer to the right anterior ankle and superior foot but currently there are no signs or symptoms of infection and she has previously been on antibiotics for this. The patient is ambulatory using her cane. She has good follow-up with primary care. She has a wound care appointment set up for November 29. The patient appears safe for discharge home. She will be given a referral for vascular surgery, podiatry, and the local wound care clinic. The patient will return to the emergency Department with any worsening of her symptoms or any acute distress. - Differential Diagnosis peripheral neuropathy, diabetic ulcer, cellulitis, peripheral vascular dise Critical Care Time: No Critical care attestation.: If time is entered above; I have spent that time in minutes in the direct care of this critically ill patient, excluding procedure time. ED Disposition Clinical Impression: Right foot pain, ESRD on hemodialysis Anemia in CKD (chronic kidney disease) Qualifiers: Chronic kidney disease stage: on chronic dialysis Qualified Code(s): N18.6 - End stage renal disease Foot ulcer, limited to breakdown of skin Qualifiers: Laterality: right Qualified Code(s): L97.511 - Non-pressure chronic ulcer of other part of right foot limited to breakdown of skin Disposition: DC-01 TO HOME OR SELFCARE Is pt being admited?: No Condition: Stable Instructions: Diabetic Foot Ulcers (ED), Arthralgia (ED), End-Stage Kidney Disease (ED) Additional Instructions: Please follow-up with your primary care physician in the next few days if possible. I am giving him a referral for the local wound care clinic. I am giving you a referral for 2 different local podiatrists, Dr. Loza and Dr. Sorensen. I am also giving you a referral for a local vascular surgeon, Dr. Chery Burger, to follow up regarding your peripheral vascular disease. Continue with your normal dialysis regiment. Return to the emergency Department with any worsening of your symptoms or any acute distress. You have been prescribed a medication that is sedating and therefore should not be taken prior to driving, working, and responsible for children and in no way should be mixed with alcohol of any quantity. Prescriptions: HYDROcodone/APAP 5-325 [Columbia 5/325] 1 each PO Q6H PRN #12 tablet PRN Reason: Pain Referrals: FROYLAN ARREGUIN MD [Staff Physician] - 3-5 Days CHERY BURGER MD [Staff Physician] - 3-5 Days MYNOR LOZA DPM [Staff Physician] - 3-5 Days EVAN SORENSEN MD [Staff Physician] - 3-5 Days [facility] [Outside] - 3-5 Days Time of Disposition: 03:50
--- NOTE | 2018-11-15 03:22 | XRay Report ---
PROCEDURE: XR FOOT 2V RT TECHNIQUE: 2 views of the right foot HISTORY: right foot pain COMPARISONS: None FINDINGS: The bones are diffusely demineralized. There is hammertoe deformity of the second through f ifth toes. There are no focal osseous erosive changes. There is no evidence of acute fracture. There is diffuse small vessel atherosclerotic calcifications consistent with diabetic vasculopathy. IMPRESSION: No evidence of acute fracture. No radiographic evidence of osteomyelitis This document is electronically signed by Lisa Darling MD., November 15 2018 03:21:22 AM ET
--- NOTE | 2018-11-15 03:25 | XRay Report ---
PROCEDURE: XR TIBIA FIBULA 2V RT TECHNIQUE: AP and lateral views of the right tibia fibula HISTORY: right leg pain COMPARISONS: None FINDINGS: Bones are diffusely demineralized. There is no evidence of acute fracture or subluxation. T he knee is normally aligned. There are no focal osseous erosive changes. There is diffuse atheroscler otic calcification consistent with diabetic vasculopathy. IMPRESSION: No evidence of acute fracture No radiographic evidence of osteomyelitis Diffuse atherosclerotic calcifications consistent with diabetic vasculopathy This document is electronically signed by Lisa Darling MD., November 15 2018 03:23:03 AM ET
[2018-11-15] MEDS ORDERED: NORCO 5/325 PO ONE (04:08)
[2018-11-15] MEDS ORDERED: NORCO 5/325 ONE (04:11)
== END 2018-11-15 09:28 | disposition home or self-care (01) ==
LOC: ED 20:12
DX: E11.621 Type 2 diabetes mellitus with foot ulcer (principal); I12.0 Hypertensive chronic kidney disease with stage 5 chronic kidney disease or end stage renal disease; E11.22 Type 2 diabetes mellitus with diabetic chronic kidney disease; N18.6 End stage renal disease; D63.1 Anemia in chronic kidney disease; K21.9 Gastro-esophageal reflux disease without esophagitis; Z79.4 Long term (current) use of insulin; Z99.2 Dependence on renal dialysis; Z79.899 Other long term (current) drug therapy; Z88.1 Allergy status to other antibiotic agents
CPT/HCPCS: 36415; 80048; 85027; 99284

== ENCOUNTER 2018-11-20 22:56 | Inpatient (IN) | payer MEDICARE ==
[2018-11-20] MEDS ORDERED: PERCOCET 5/325 PO ONE (23:25)
[2018-11-20 23:42] LABS: Basophils # (Auto) 0.1 K/mm3 (0.0-0.1); Basophils % (Auto) 1.1 % (0.0-1.8); Eosinophils # (Auto) 0.3 K/mm3 (0.0-0.4); Eosinophils % (Auto) 3.3 % (0.0-4.3); Hematocrit 27.6 % (30.3-42.9); Lymphocytes # (Auto) 0.8 K/mm3 (1.2-5.4); Lymphocytes % (Auto) 10.4 % (13.4-35.0); Mean Corpuscular HGB Conc 33 % (30-34); Mean Corpuscular Volume 82 fl (79-97); Monocytes # (Auto) 0.6 K/mm3 (0.0-0.8); Monocytes % (Auto) 8.1 % (0.0-7.3); Platelet Count 327 K/mm3 (140-440); Red Blood Count 3.36 M/mm3 (3.65-5.03); Red Cell Distribution Width 19.8 % (13.2-15.2)
[2018-11-20 23:57] LABS: Calcium 9.5 mg/dL (8.4-10.2)
[2018-11-21] MEDS ORDERED: MORPHINE IM ONE (00:47)
--- NOTE | 2018-11-21 01:45 | Emergency Department Report ---
HPI - General Chief Complaint: Extremity Injury, Lower Time Seen by Provider: 11/20/18 23:24 - HPI HPI: 68-year-old -English female presents to the emergency department with acute on chronic right lower extremity pain. The patient says that the pain is mostly to the top of her foot and the distal half of her lower leg. Patient has a chronic ulcer to the foot as well. She was seen by me in this emergency department about one week ago for the same symptoms. The patient has been having difficulty getting in to see the wound care clinic, vascular surgery and she has not seen a information services manager. She has a past medical history of end-stage renal disease on hemodialysis on Tuesdays//Tuesday. She also has a history of diabetes, hypertension, peripheral vascular disease. The patient had an arterial and venous Doppler done of the right lower extremity in early October that showed marketed peripheral vascular disease including areas of stenosis, near occlusion and/or occlusion. She says that she spoke to her PCP, Dr Pham, who was finally able to get her an appointment with vascular surgery on Tuesday. Her college instructor is Dr Marcos. ED Past Medical Hx - Past Medical History Hx Hypertension: Yes Hx CVA: No Hx Heart Attack/AMI: No Hx Congestive Heart Failure: No Hx Diabetes: Yes Hx Deep Vein Thrombosis: No Hx Pulmonary Embolism: No Hx GERD: Yes Hx Liver Disease: No Hx Renal Disease: Yes (HD T,,Tue) Hx Sickle Cell Disease: No Hx Arthritis: No Hx Headaches / Migraines: No Hx Seizures: No Hx Kidney Stones: No Hx Psychiatric Treatment: No Hx Asthma: No Hx COPD: No Hx Tuberculosis: No Hx Dementia: No Hx HIV: No Additional medical history: anemia - Surgical History Hx Coronary Stent: No Hx Open Heart Surgery: No Hx Pacemaker: No Hx Internal Defibrillator: No Hx Cholecystectomy: No Hx Appendectomy: No Hx Breast Surgery: No Additional Surgical History: graft left arm - Social History Smoking Status: Never Smoker Substance Use Type: None - Medications Home Medications: Home Medications Medication Instructions Recorded Confirmed Last Taken Type Ferric Citrate (Nf) [Auryxia] 630 mg PO TIDWM 09/05/18 11/21/18 11/18/18 History Pantoprazole [Protonix TAB] 40 mg PO BID #60 tablet 10/03/18 11/21/18 10/16/18 20:00 Rx ISOSORBIDE MONOnitrate [Imdur ER] 30 mg PO QDAY #30 tablet 10/04/18 11/21/18 Unknown Rx Lisinopril [Zestril TAB] 5 mg PO DAILY #30 tablet 10/04/18 11/21/18 Unknown Rx cloNIDine [Catapres] 0.1 mg PO TID PRN 10/17/18 11/21/18 Unknown History Mupirocin [Bactroban 2%] 1 applic TP TID #1 tube 10/29/18 11/21/18 Unknown Rx ED Review of Systems ROS: Stated complaint: CONGESTION & RT FOOT PAIN Other details as noted in HPI Comment: All other systems reviewed and negative Constitutional: denies: chills, fever Eyes: denies: eye pain, vision change ENT: denies: ear pain, throat pain Respiratory: denies: cough, shortness of breath Cardiovascular: denies: chest pain, palpitations Gastrointestinal: denies: abdominal pain, vomiting Genitourinary: denies: dysuria, frequency Musculoskeletal: joint swelling, arthralgia, myalgia Skin: lesions (chronic right foot ulcer). denies: pruritus Neurological: denies: headache, numbness Physical Exam - Physical Exam Vital Signs: Vital Signs 11/20/18 23:16 Temperature 99.2 F Pulse Rate 100 H Respiratory 16 Rate Blood Pressure 124/64 [Right] O2 Sat by Pulse 99 Oximetry Physical Exam: GENERAL: The patient is well-developed well-nourished. HENT: Normocephalic. Atraumatic. Patient has moist mucous membranes. EYES: Extraocular motions are intact. Pupils equal reactive to light bila terally. NECK: Supple. Trachea is midline. CHEST/LUNGS: Clear to auscultation. There is no respiratory distress noted. HEART/CARDIOVASCULAR: Regular. There is no tachycardia. There is no murmur. ABDOMEN: Abdomen is soft, nontender. Patient has normal bowel sounds. There is no abdominal distention. SKIN: There is a stage II ulcer to the dorsal foot and anterior right ankle. NEURO: The patient is awake, alert, and oriented. The patient is cooperative. The patient has no focal neurologic deficits. The patient has normal speech. MUSCULOSKELETAL: There is tenderness to palpation along the right calf, dorsal right foot and in the arch of the foot. There is no limitation range of motion. Cap refill < 3 secs to the affected RLE. ED Course Vital Signs 11/20/18 23:16 Temperature 99.2 F Pulse Rate 100 H Respiratory 16 Rate Blood Pressure 124/64 [Right] O2 Sat by Pulse 99 Oximetry - Consultations Consultation #1: 11/21/18 01:[address] Mccain, nephrology, to let her know that the patient will be admitted to the hospital and therefore will miss her outpatient dialysis. Nephrology has been contacted and consult. ED Medical Decision Making - Lab Data Result diagrams: 11/21/18 06:59 11/20/18 23:30 - Radiology Data Radiology results: image reviewed interpreted by me: X-ray of the right foot and tib-fib did not show any fracture, dislocations, or any signs of osteomyelitis. - Medical Decision Making This patient returns to the emergency department with acute on chronic right foot and distal right lower extremity pain. She has no peripheral vascular disease. She received Percocet and morphine and still says that she has significant discomfort. She has an ulceration to the right dorsal foot but it does not appear to have any acute infection as there is no surrounding erythema or any purulent discharge. She has no leukocytosis and is afebrile. However the patient has had multiple visits for this right lower extremity pain and her previous arterial and venous Doppler ultrasound showed marked peripheral vascular disease with multiple areas of stenosis, near occlusion or even occlusion within the right lower extremity arteries. For these reasons, I feel that the patient would benefit from inpatient admission and potentially a vascular surgery consult. I have placed an order for a repeat right lower extremity venous and arterial Doppler ultrasound to be done in the morning. I have also spoken to the patient's nephrology service to let them know that she will not make her outpatient dialysis appointment and they have been consult for dialysis. The patient has been accepted for admission by the hospitalist, Dr. Martinez. - Differential Diagnosis cellulitis, osteomyelitis, peripheral vascular disease, peripheral neuropat Critical Care Time: No Critical care attestation.: If time is entered above; I have spent that time in minutes in the direct care of this critically ill patient, excluding procedure time. ED Disposition Clinical Impression: Intractable pain, ESRD on hemodialysis, Peripheral vascular disease, Right foot pain Foot ulcer, limited to breakdown of skin Qualifiers: Laterality: right Qualified Code(s): L97.511 - Non-pressure chronic ulcer of other part of right foot limited to breakdown of skin Disposition: DC-09 OP ADMIT IP TO THIS HOSP Is pt being admited?: Yes Condition: Fair Time of Disposition: 02:02
--- NOTE | 2018-11-21 02:01 | XRay Report ---
RIGHT TIBIA/FIBULA, 4 VIEWS, 11/21/2018 INDICATION / CLINICAL INFORMATION: right leg pain. COMPARISON: None available. FINDINGS: The bones are mild to moderately demineralized. There are arterial vascular calcifications No acute osseous abnormality. No evidence for osteomyelitis. No large soft tissue defect noted. IMPRESSION: 1. No evidence for osteomyelitis. 2. The bones are diffusely demineralized. 3. Vascular calcifications noted diffusely. Signer Name: Karmen Hennessy MD Signed: 11/21/2018 12:57 AM Workstation Name: [id number]
--- NOTE | 2018-11-21 02:13 | XRay Report ---
RIGHT FOOT, 3 VIEWS, 11/21/2018 INDICATION / CLINICAL INFORMATION: right foot pain, diabetic ulcer. COMPARISON: 11/15/2018 FINDINGS: The bones are diffusely demineralized. Arterial calcifications noted diffusely. No radiographic evide nce of osteomyelitis. No acute fracture or malalignment noted. IMPRESSION: No acute fracture. No evidence for osteomyelitis. Signer Name: Karmen Hennessy MD Signed: 11/21/2018 1:09 AM Workstation Name: [id number]
[2018-11-21] MEDS ORDERED: NARCAN 0.4 MG/1 ML IV PRN (06:16)
[2018-11-21] MEDS ORDERED: SODIUM CHLORIDE FLUSH SYRINGE 10 ML IV PRN (06:16)
[2018-11-21] MEDS ORDERED: D50W (25GM) Syringe IV PRN (06:16)
[2018-11-21] MEDS ORDERED: CATAPRES PO PRN (06:41)
--- NOTE | 2018-11-21 06:53 | History and Physical Report ---
History of Present Illness Date of examination: 11/21/18 Chief complaint: Severe pain to RLE History of present illness: 68-year-old -[place] female with PMH of HTN, ESRD on Tue//Tue, PVD, presents to the ED with c/o of severe acute on chronic right lower extremity pain. The patient says that the pain is mostly to the top of her foot and the distal half of her lower leg. Patient has a chronic ulcer to the foot as well. She was seen earlier in the ED about one week ago for the same symptoms. 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 She has a past medical history of end-stage renal disease on hemodialysis on Tuesdays//Tuesday. She also has a history of diabetes, hypertension, peripheral vascular disease. The patient had an arterial and venous Doppler done of the right lower extremity in early October that showed marketed peripheral vascular disease including areas of stenosis, near occlusion and/or occlusion. She says that she spoke to her PCP, Dr Pham, who was finally able to get her an appointment with vascular surgery on Tuesday. Her graphic manager is Dr Marcos. She reports ambulating with a cane but that its been hard for her to weight bare. she denies any recent falls, fever, chills, bleeding, CP or SOB Past History Past Medical History: anemia, diabetes, hypertension Social history: full code Family history: diabetes, hypertension Medications and Allergies Allergies Allergy/AdvReac Type Severity Reaction Status Date / Time erythromycin base Allergy Rash Verified 10/26/18 18:04 [Erythromycin Base] Home Medications Medication Instructions Recorded Confirmed Last Taken Type Ferric Citrate (Nf) [Auryxia] 630 mg PO TIDWM 09/05/18 11/21/18 11/18/18 History Pantoprazole [Protonix TAB] 40 mg PO BID #60 tablet 10/03/18 11/21/18 10/16/18 20:00 Rx ISOSORBIDE MONOnitrate [Imdur ER] 30 mg PO QDAY #30 tablet 10/04/18 11/21/18 Unknown Rx Lisinopril [Zestril TAB] 5 mg PO DAILY #30 tablet 10/04/18 11/21/18 Unknown Rx cloNIDine [Catapres] 0.1 mg PO TID PRN 10/17/18 11/21/18 Unknown History Mupirocin [Bactroban 2%] 1 applic TP TID #1 tube 10/29/18 11/21/18 Unknown Rx Active Meds: Active Medications Acetaminophen (Tylenol) 650 mg PO Q4H PRN PRN Reason: Pain MILD(1-3)/Fever >100.5/PEREZ Clonidine HCl (Catapres) 0.1 mg PO TID PRN PRN Reason: Blood Pressure Dextrose (D50w (25gm) Syringe) 50 ml IV PRN PRN PRN Reason: Hypoglycemia Heparin Sodium/Sodium Chloride (Heparin/ 0.45% Nacl-25,000 Unit/500 Ml) 25,000 unit in 500 mls @ 19.051 mls/hr IV TITR [facility]; Protocol Insulin Human Lispro (Humalog) 0 unit SUB-Q ACHS [facility]; Protocol Isosorbide Mononitrate (Imdur) 30 mg PO QDAY [facility] Lisinopril (Zestril) 5 mg PO DAILY [facility] Miscellaneous Medication (Ferric Citrate) 630 mg PO TIDWM [facility] Morphine Sulfate (Morphine) 2 mg IV Q4H PRN PRN Reason: Pain, Moderate (4-6) Mupirocin (Bactroban 2%) 1 applic TP TID [facility] Naloxone HCl (Narcan 0.4 Mg/1 Ml) 0.1 mg IV Q2MIN PRN PRN Reason: Res Rate </= 8 or 02 SAT < 92% Ondansetron HCl (Zofran) 4 mg IV Q8H PRN PRN Reason: Nausea And Vomiting Oxycodone/Acetaminophen (Percocet 5/325) 1 tab PO Q6H PRN PRN Reason: Pain, Moderate (4-6) Pantoprazole Sodium (Protonix) 40 mg PO BID [facility] Sodium Chloride (Sodium Chloride Flush Syringe 10 Ml) 10 ml IV BID [facility] Sodium Chloride (Sodium Chloride Flush Syringe 10 Ml) 10 ml IV PRN PRN PRN Reason: LINE FLUSH Review of Systems Constitutional: weakness, chronic pain Exam - Constitutional Vitals: Temp Pulse Resp BP Pulse Ox 99.2 F 94 H 14 149/77 100 11/20/18 23:16 11/21/18 05:15 11/21/18 05:15 11/21/18 05:15 11/21/18 05:15 General appearance: Present: no acute distress, well-nourished - EENT Eyes: Present: PERRL ENT: hearing intact, clear oral mucosa - Neck Neck: Present: supple, normal ROM - Respiratory Respiratory effort: normal Respiratory: bilateral: CTA - Cardiovascular Heart Sounds: Present: S1 & S2. Absent: rub, click - Extremities Extremities: pulses symmetrical, No edema Extremity abnormal: edema (RLS), cyanosis Peripheral Pulses: within normal limits - Abdominal General gastrointestinal: Present: soft, non-tender, non-distended, normal bowel sounds Female genitourinary: Present: normal - Integumentary Integumentary: Present: clear, warm, dry - Musculoskeletal Musculoskeletal: gait normal, strength equal bilaterally - Psychiatric Psychiatric: appropriate mood/affect, intact judgment & insight - Neurologic Neurologic: CNII-XII intact, moves all extremities Results - Labs CBC & Chem 7: 11/20/18 23:30 11/20/18 23:30 Labs: Laboratory Last Values WBC 7.8 K/mm3 (4.5-11.0) 11/20/18 23:30 RBC 3.36 M/mm3 (3.65-5.03) L 11/20/18 23:30 Hgb 9.0 gm/dl (10.1-14.3) L 11/20/18 23:30 Hct 27.6 % (30.3-42.9) L 11/20/18 23:30 MCV 82 fl (79-97) 11/20/18 23:30 MCH 27 pg (28-32) L 11/20/18 23:30 MCHC 33 % (30-34) 11/20/18 23:30 RDW 19.8 % (13.2-15.2) H 11/20/18 23:30 Plt Count 327 K/mm3 (140-440) 11/20/18 23:30 Lymph % (Auto) 10.4 % (13.4-35.0) L 11/20/18 23:30 [place] % (Auto) 8.1 % (0.0-7.3) H 11/20/18 23:30 Eos % (Auto) 3.3 % (0.0-4.3) 11/20/18 23:30 Baso % (Auto) 1.1 % (0.0-1.8) 11/20/18 23:30 Lymph # 0.8 K/mm3 (1.2-5.4) L 11/20/18 23:30 [place] # 0.6 K/mm3 (0.0-0.8) 11/20/18 23:30 Eos # 0.3 K/mm3 (0.0-0.4) 11/20/18 23:30 Baso # 0.1 K/mm3 (0.0-0.1) 11/20/18 23:30 Seg Neutrophils % 77.1 % (40.0-70.0) H 11/20/18 23:30 Seg Neutrophils # 6.0 K/mm3 (1.8-7.7) 11/20/18 23:30 Sodium 140 mmol/L (137-145) 11/20/18 23:30 Potassium 4.6 mmol/L (3.6-5.0) 11/20/18 23:30 Chloride 98.9 mmol/L (98-107) 11/20/18 23:30 Carbon Dioxide 20 mmol/L (22-30) L 11/20/18 23:30 26 mmol/L 11/20/18 23:30 BUN 66 mg/dL (7-17) H 11/20/18 23:30 6.6 mg/dL (0.7-1.2) H 11/20/18 23:30 Estimated GFR 8 ml/min 11/20/18 23:30 10 % 11/20/18 23:30 Glucose 130 mg/dL (65-100) H 11/20/18 23:30 Calcium 9.5 mg/dL (8.4-10.2) 11/20/18 23:30 Assessment and Plan Assessment and plan: RLE limb iSchemia Diabetic foot ulcer HTN ESRD Anemia Debility PAD- Prox Superficial Femoral Artery Plan - start IV Heparin Gtt - Aim for effective analgesia - Vascular Sx consult as pt has a subacute abnormal Arterial doppler scan- marked PVD. Pt has not see Vascular Sx yet. - HD per renal. - wound care nurse - no signs of systemic infection and so will observe off antibiotics for now
[2018-11-21 07:13] LABS: Hematocrit 28.3 % (30.3-42.9); Hemoglobin 9.2 gm/dl (10.1-14.3)
[2018-11-21 07:23] LABS: INR 1.16 (0.87-1.13)
[2018-11-21 07:24] LABS: Partial Thromboplastin Time 45.8 Sec. (24.2-36.6)
[2018-11-21] MEDS ORDERED: FERRIC CITRATE 630 MG PO SCH (08:00)
[2018-11-21] MEDS: HumaLOG SUB-Q SCH ×4 (08:01→23:17)
[2018-11-21] MEDS: HEPARIN/ 0.45% NACL-25,000 UNIT/500 ML 25,000 UNIT/500 ML BAG IV SCH (08:17)
--- NOTE | 2018-11-21 08:43 | Consultation ---
History of Present Illness - Reason for Consult Consult date: 11/21/18 end stage renal disease - History of Present Illness Mrs. Dueñas is a 68-year-old -Ivorian female w/ ESRD, HTN and GI bleed who presened to the ED with worsening right leg pain with PMH of HTN, ESRD on Tue//Tue, PVD, presents to the ED with c/o of severe acute on chronic right lower extremity pain. Past History Past Medical History: anemia, diabetes, hypertension Social history: full code Family history: diabetes, hypertension Medications and Allergies Allergies Allergy/AdvReac Type Severity Reaction Status Date / Time erythromycin base Allergy Rash Verified 10/26/18 18:04 [Erythromycin Base] Home Medications Medication Instructions Recorded Confirmed Last Taken Type Ferric Citrate (Nf) [Auryxia] 630 mg PO TIDWM 09/05/18 11/21/18 11/18/18 History Pantoprazole [Protonix TAB] 40 mg PO BID #60 tablet 10/03/18 11/21/18 10/16/18 20:00 Rx ISOSORBIDE MONOnitrate [Imdur ER] 30 mg PO QDAY #30 tablet 10/04/18 11/21/18 Unknown Rx Lisinopril [Zestril TAB] 5 mg PO DAILY #30 tablet 10/04/18 11/21/18 Unknown Rx cloNIDine [Catapres] 0.1 mg PO TID PRN 10/17/18 11/21/18 Unknown History Mupirocin [Bactroban 2%] 1 applic TP TID #1 tube 10/29/18 11/21/18 Unknown Rx Active Meds: Active Medications Acetaminophen (Tylenol) 650 mg PO Q4H PRN PRN Reason: Pain MILD(1-3)/Fever >100.5/PEREZ Clonidine HCl (Catapres) 0.1 mg PO TID PRN PRN Reason: Blood Pressure Dextrose (D50w (25gm) Syringe) 50 ml IV PRN PRN PRN Reason: Hypoglycemia Heparin Sodium/Sodium Chloride (Heparin/ 0.45% Nacl-25,000 Unit/500 Ml) 25,000 unit in 500 mls @ 18 mls/hr IV TITR [facility]; Protocol Last Admin: 11/21/18 08:17 Dose: 900 units/hr, 18 mls/hr Documented by: Insulin Human Lispro (Humalog) 0 unit SUB-Q ACHS [facility]; Protocol Last Admin: 11/21/18 08:01 Dose: Not Given Documented by: Isosorbide Mononitrate (Imdur) 30 mg PO QDAY [facility] Lisinopril (Zestril) 5 mg PO DAILY [facility] Miscellaneous Medication (Ferric Citrate) 630 mg PO TIDWM [facility] Morphine Sulfate (Morphine) 2 mg IV Q4H PRN PRN Reason: Pain, Moderate (4-6) Mupirocin (Bactroban 2%) 1 applic TP TID [facility] Naloxone HCl (Narcan 0.4 Mg/1 Ml) 0.1 mg IV Q2MIN PRN PRN Reason: Res Rate </= 8 or 02 SAT < 92% Ondansetron HCl (Zofran) 4 mg IV Q8H PRN PRN Reason: Nausea And Vomiting Oxycodone/Acetaminophen (Percocet 5/325) 1 tab PO Q6H PRN PRN Reason: Pain, Moderate (4-6) Pantoprazole Sodium (Protonix) 40 mg PO BID [facility] Sodium Chloride (Sodium Chloride Flush Syringe 10 Ml) 10 ml IV BID [facility] Sodium Chloride (Sodium Chloride Flush Syringe 10 Ml) 10 ml IV PRN PRN PRN Reason: LINE FLUSH Review of Systems All systems: negative Exam - Vital Signs Vital signs: Vital Signs Temp Pulse Resp BP Pulse Ox 99.2 F 100 H 16 124/64 99 11/20/18 23:16 11/20/18 23:16 11/20/18 23:16 11/20/18 23:16 11/20/18 23:16 - General Appearance General appearance: well-developed, frail EENT: ATNC Respiratory: Clear to Ascultation Heart: regular, S1S2 Gastrointestinal: Present: normal. Absent: tenderness, distended Integumentary: warm and dry Neurologic: no focal deficit Musculoskeletal: Present: other (ulceration right foot/ankle) Psychiatric: cooperative Results - Lab Results 11/21/18 06:59 11/20/18 23:30 Most recent lab results Calcium 9.5 mg/dL (8.4-10.2) 11/20/18 23:30 Assessment and Plan Impression: * End stage renal disease * Peripheral artery disease * Right leg ulceration --RLE doppler negative for DVT * Hypertension * Type II DM * Hx of GI bleed --Colonoscopy: No gross lesions and no blood seen in the colon. Large internal and external hemorrhoids. Inadequate prep --EGD: Duodenum - nodularity biopsied to r/o adenoma. Severe duodenitis of the bulb. Deep cratered pre-pyloric clean based ulcer * Secondary hyperparathyroidism * Anemia secondary to ESRD Plan: * Resume outpatient TTS schedule * UF as tolerated * Heparin gtt per primary team/vascular surgery * Vascular surgery consultation is pending * Epogen TIW prn * Continue antiHTN medications * Renal diet
[2018-11-21] MEDS ORDERED: ALBURX 25% (ALBUMIN) IV PRN (09:01)
[2018-11-21] MEDS ORDERED: HEPARIN 10,000 UNITS/10 ML IV PRN (09:01)
[2018-11-21] MEDS ORDERED: NACL 0.9% 100 ML IV PRN (09:01)
[2018-11-21] MEDS: BACTROBAN 2% TP SCH ×3 (09:04→23:14)
--- NOTE | 2018-11-21 13:43 | Progress Note ---
Assessment and Plan Assessment and plan: Patient is a 68 yo AA woman with a history of HTN, ESRD on Tue/Thur/Sat, PVD, IDDM, GERD and AOCD who presented to [facility] ED with RLE rest pains. RLE limb iSchemia Diabetic foot ulcer HTN ESRD Anemia Debility PAD- Prox Superficial Femoral Artery Plan - start IV Heparin Gtt - Aim for effective analgesia - Vascular Sx consult as pt has a subacute abnormal Arterial doppler scan- marked PVD. Pt has not see Vascular Sx yet. - HD per renal. - wound care nurse - no signs of systemic infection and so will observe off antibiotics for now prolonged inpatient services 41 minutes History Interval history: Patient was seen and examined. Follow-up on current diagnosis. No overnight events reported to me. Patient denies any chest pain, shortness breath, nausea/vomiting or severe headaches. Imaging, nursing note, chart, labs and old chart reviewed. Discussed with patient. Hospitalist Physical - Physical exam Narrative exam: Gen: thin frail, NAD, Awake, Alert, Orientated HEENT: NCAT, EOMI, PERRL, OP Clear Neck: supple, no adenopathy, no thyromegaly, no JVD CVS/Heart: RRR, normal S1S2, pulses present bilaterally Chest/Lungs: CTA B, Symmetrical chest expansion, good air entry bilaterally GI/Abdomen: soft, NTND, good bowel sounds, no guarding or rebound /Bladder: no suprapubic tenderness, no CVA or paraspinal tenderness Extermity/Skin: top of right foot ulcer MSK: FROM x 4 Neuro: CN 2-12 grossly intact, no new focal deficits Psych: calm - Constitutional Vitals: Temp Pulse Resp BP Pulse Ox 98.8 F 85 16 127/78 99 11/21/18 08:59 11/21/18 08:59 11/21/18 08:59 11/21/18 08:59 11/21/18 08:59 General appearance: Present: no acute distress, well-nourished Results - Labs CBC & Chem 7: 11/21/18 06:59 11/20/18 23:30 Labs: Laboratory Last Values WBC 7.8 K/mm3 (4.5-11.0) 11/20/18 23:30 RBC 3.36 M/mm3 (3.65-5.03) L 11/20/18 23:30 Hgb 9.2 gm/dl (10.1-14.3) L 11/21/18 06:59 Hct 28.3 % (30.3-42.9) L 11/21/18 06:59 MCV 82 fl (79-97) 11/20/18 23:30 MCH 27 pg (28-32) L 11/20/18 23:30 MCHC 33 % (30-34) 11/20/18 23:30 RDW 19.8 % (13.2-15.2) H 11/20/18 23:30 Plt Count 309 K/mm3 (140-440) 11/21/18 06:59 Lymph % (Auto) 10.4 % (13.4-35.0) L 11/20/18 23:30 [place] % (Auto) 8.1 % (0.0-7.3) H 11/20/18 23:30 Eos % (Auto) 3.3 % (0.0-4.3) 11/20/18 23:30 Baso % (Auto) 1.1 % (0.0-1.8) 11/20/18 23:30 Lymph # 0.8 K/mm3 (1.2-5.4) L 11/20/18 23:30 [place] # 0.6 K/mm3 (0.0-0.8) 11/20/18 23:30 Eos # 0.3 K/mm3 (0.0-0.4) 11/20/18 23:30 Baso # 0.1 K/mm3 (0.0-0.1) 11/20/18 23:30 Seg Neutrophils % 77.1 % (40.0-70.0) H 11/20/18 23:30 Seg Neutrophils # 6.0 K/mm3 (1.8-7.7) 11/20/18 23:30 PT 14.5 Sec. (12.2-14.9) 11/21/18 06:59 INR 1.16 (0.87-1.13) H 11/21/18 06:59 APTT 45.8 Sec. (24.2-36.6) H 11/21/18 06:59 Sodium 140 mmol/L (137-145) 11/20/18 23:30 Potassium 4.6 mmol/L (3.6-5.0) 11/20/18 23:30 Chloride 98.9 mmol/L (98-107) 11/20/18 23:30 Carbon Dioxide 20 mmol/L (22-30) L 11/20/18 23:30 26 mmol/L 11/20/18 23:30 BUN 66 mg/dL (7-17) H 11/20/18 23:30 6.6 mg/dL (0.7-1.2) H 11/20/18 23:30 Estimated GFR 8 ml/min 11/20/18 23:30 10 % 11/20/18 23:30 Glucose 130 mg/dL (65-100) H 11/20/18 23:30 Calcium 9.5 mg/dL (8.4-10.2) 11/20/18 23:30 Active Medications - Current Medications Current Medications: Generic Name Dose Route Start Last Admin Trade Name Freq PRN Reason Stop Dose Admin Acetaminophen 650 mg 11/21/18 06:16 Tylenol PO Q4H PRN Pain MILD(1-3)/Fever >100.5/PEREZ Albumin Human 25 gm 11/21/18 09:01 Alburx 25% (Albumin) IV ANTOINETTE PRN Hypotension Clonidine HCl 0.1 mg 11/21/18 06:41 Catapres PO TID PRN Blood Pressure Dextrose 50 ml 11/21/18 06:16 D50w (25gm) Syringe IV PRN PRN Hypoglycemia Epoetin Khurram 10,000 unit 11/21/18 09:01 Procrit IV ANTOINETTE PRN hemodialysis Heparin Sodium (Porcine) 2,000 unit 11/21/18 09:01 Heparin 10,000 Units/10 Ml IV ANTOINETTE PRN hemodialysis Heparin Sodium/Sodium Chloride 25,000 unit in 500 mls @ 18 mls/hr 11/21/18 07:00 11/21/18 08:17 Heparin/ 0.45% Nacl-25,000 Unit/500 Ml IV 900 units/hr TITR [facility] 18 mls/hr Administration Protocol 900 UNITS/HR Sodium Chloride 100 mls @ 999 mls/hr 11/21/18 09:01 Nacl 0.9% IV ANTOINETTE PRN Hypotension Insulin Human Lispro 0 unit 11/21/18 07:30 11/21/18 08:01 Humalog SUB-Q Not Given ACHS [facility] Protocol Isosorbide Mononitrate 30 mg 07/02/19 10:00 Imdur PO QDAY [facility] Lisinopril 5 mg 11/21/18 10:00 Zestril PO DAILY [facility] Miscellaneous Medication 630 mg 11/21/18 08:00 Ferric Citrate PO TIDWM [facility] Morphine Sulfate 2 mg 11/21/18 06:16 Morphine IV Q4H PRN Pain, Moderate (4-6) Mupirocin 1 applic 11/21/18 08:00 11/21/18 09:04 Bactroban 2% TP Not Given TID [facility] Naloxone HCl 0.1 mg 11/21/18 06:16 Narcan 0.4 Mg/1 Ml IV Q2MIN PRN Res Rate </= 8 or 02 SAT < 92% Ondansetron HCl 4 mg 11/21/18 06:16 Zofran IV Q8H PRN Nausea And Vomiting Oxycodone/Acetaminophen 1 tab 11/21/18 06:16 Percocet 5/325 PO Q6H PRN Pain, Moderate (4-6) Pantoprazole Sodium 40 mg 11/21/18 10:00 Protonix PO BID [facility] Sodium Chloride 10 ml 11/21/18 10:00 Sodium Chloride Flush Syringe 10 Ml IV BID [facility] Sodium Chloride 10 ml 11/21/18 06:16 Sodium Chloride Flush Syringe 10 Ml IV PRN PRN LINE FLUSH
[2018-11-21] MEDS: PROCRIT IV PRN (14:30)
[2018-11-21] MEDS ORDERED: NACL 0.9 (PRIMING MACHINE ONLY DIALYSIS) MC ONE (14:56)
--- NOTE | 2018-11-21 15:43 | Consultation ---
History of Present Illness - Reason for Consult Consult date: 11/21/18 Peripheral Vascular Disease with Right Lower Extremity Ulceration Requesting physician: CURTIS PATEL - History of Present Illness The patient is a 68-year-old female with a history of end-stage renal disease who presents to the hospital with complaints of 4-5 months of rest pain in her right lower injury. The patient states that she began noticing pain in her right foot approximately 6 months ago however she was unable to get to schedule a vascular surgery appointment. Over the past 4-5 months the pain has progressed to rest pain that is improved with hanging her foot off the bed. As some point she developed a superficial ulceration on the dorsal surface of her right foot however she is unsure how long that has been present. The patient states that she still is able to ambulate however it is with some difficulty secondary to the pain. She also complains of left upper extremity pain secondary to a fall that resulted in her landing on her left arm. She denies any fractures at the time. She has no other complaints at this time. Past History Past Medical History: anemia, diabetes, hypertension Past Surgical History: Other (left upper extremity arteriovenous graft with multiple percutaneous interventions) Social history: full code Family history: diabetes, hypertension Medications and Allergies Allergies Allergy/AdvReac Type Severity Reaction Status Date / Time erythromycin base Allergy Rash Verified 10/26/18 18:04 [Erythromycin Base] Home Medications Medication Instructions Recorded Confirmed Last Taken Type Ferric Citrate (Nf) [Auryxia] 630 mg PO TIDWM 09/05/18 11/21/18 11/18/18 History Pantoprazole [Protonix TAB] 40 mg PO BID #60 tablet 10/03/18 11/21/18 10/16/18 20:00 Rx ISOSORBIDE MONOnitrate [Imdur ER] 30 mg PO QDAY #30 tablet 10/04/18 11/21/18 Unknown Rx Lisinopril [Zestril TAB] 5 mg PO DAILY #30 tablet 10/04/18 11/21/18 Unknown Rx cloNIDine [Catapres] 0.1 mg PO TID PRN 10/17/18 11/21/18 Unknown History Mupirocin [Bactroban 2%] 1 applic TP TID #1 tube 10/29/18 11/21/18 Unknown Rx Active Meds: Active Medications Acetaminophen (Tylenol) 650 mg PO Q4H PRN PRN Reason: Pain MILD(1-3)/Fever >100.5/PEREZ Albumin Human (Alburx 25% (Albumin)) 25 gm IV ANTOINETTE PRN PRN Reason: Hypotension Clonidine HCl (Catapres) 0.1 mg PO TID PRN PRN Reason: Blood Pressure Dextrose (D50w (25gm) Syringe) 50 ml IV PRN PRN PRN Reason: Hypoglycemia Epoetin Khurram (Procrit) 10,000 unit IV ANTOINETTE PRN PRN Reason: hemodialysis Heparin Sodium (Porcine) (Heparin 10,000 Units/10 Ml) 2,000 unit IV ANTOINETTE PRN PRN Reason: hemodialysis Heparin Sodium/Sodium Chloride (Heparin/ 0.45% Nacl-25,000 Unit/500 Ml) 25,000 unit in 500 mls @ 18 mls/hr IV TITR [facility]; Protocol Last Admin: 11/21/18 08:17 Dose: 900 units/hr, 18 mls/hr Documented by: Sodium Chloride (Nacl 0.9%) 100 mls @ 999 mls/hr IV ANTOINETTE PRN PRN Reason: Hypotension Insulin Human Lispro (Humalog) 0 unit SUB-Q ACHS [facility]; Protocol Last Admin: 11/21/18 14:15 Dose: Not Given Documented by: Isosorbide Mononitrate (Imdur) 30 mg PO QDAY [facility] Lisinopril (Zestril) 5 mg PO DAILY [facility] Miscellaneous Medication (Ferric Citrate) 630 mg PO TIDWM [facility] Morphine Sulfate (Morphine) 2 mg IV Q4H PRN PRN Reason: Pain, Moderate (4-6) Mupirocin (Bactroban 2%) 1 applic TP TID [facility] Last Admin: 11/21/18 09:04 Dose: Not Given Documented by: Naloxone HCl (Narcan 0.4 Mg/1 Ml) 0.1 mg IV Q2MIN PRN PRN Reason: Res Rate </= 8 or 02 SAT < 92% Ondansetron HCl (Zofran) 4 mg IV Q8H PRN PRN Reason: Nausea And Vomiting Oxycodone/Acetaminophen (Percocet 5/325) 1 tab PO Q6H PRN PRN Reason: Pain, Moderate (4-6) Pantoprazole Sodium (Protonix) 40 mg PO BID [facility] Sodium Chloride (Sodium Chloride Flush Syringe 10 Ml) 10 ml IV BID [facility] Sodium Chloride (Sodium Chloride Flush Syringe 10 Ml) 10 ml IV PRN PRN PRN Reason: LINE FLUSH Review of Systems All systems: negative Exam - Constitutional Vitals: Temp Pulse Resp BP Pulse Ox 98.8 F 92 H 18 127/46 99 11/21/18 10:45 11/21/18 12:45 11/21/18 10:45 11/21/18 12:45 11/21/18 08:59 General appearance: Present: no acute distress - Neck Neck: Present: supple - Respiratory Respiratory effort: normal - Cardiovascular Rhythm: regular - Extremities Extremities: normal temperature, abnormal (bilateral femoral arteries palpable, no palpable pedal pulses, superficial ulceration dorsum right foot, no purulence or exposed tendons, no obvious infection) Extremity abnormal: other (palpable thrill left AVG with moderate edema) - Abdominal General gastrointestinal: Present: soft, non-tender, non-distended Results - Labs CBC & Chem 7: 11/21/18 06:59 11/20/18 23:30 Labs: Abnormal lab results 11/20/18 11/20/18 11/21/18 Range/Units 23:30 23:30 06:59 RBC 3.36 L (3.65-5.03) M/mm3 Hgb 9.0 L 9.2 L (10.1-14.3) gm/dl Hct 27.6 L 28.3 L (30.3-42.9) % MCH 27 L (28-32) pg RDW 19.8 H (13.2-15.2) % Lymph % (Auto) 10.4 L (13.4-35.0) % [place] % (Auto) 8.1 H (0.0-7.3) % Lymph # 0.8 L (1.2-5.4) K/mm3 Seg Neutrophils % 77.1 H (40.0-70.0) % INR (0.87-1.13) APTT (24.2-36.6) Sec. Carbon Dioxide 20 L (22-30) mmol/L BUN 66 H (7-17) mg/dL Creatinine 6.6 H (0.7-1.2) mg/dL Glucose 130 H (65-100) mg/dL 11/21/18 Range/Units 06:59 RBC (3.65-5.03) M/mm3 Hgb (10.1-14.3) gm/dl Hct (30.3-42.9) % MCH (28-32) pg RDW (13.2-15.2) % Lymph % (Auto) (13.4-35.0) % [place] % (Auto) (0.0-7.3) % Lymph # (1.2-5.4) K/mm3 Seg Neutrophils % (40.0-70.0) % INR 1.16 H (0.87-1.13) APTT 45.8 H (24.2-36.6) Sec. Carbon Dioxide (22-30) mmol/L BUN (7-17) mg/dL Creatinine (0.7-1.2) mg/dL Glucose (65-100) mg/dL - Imaging and Cardiology Venous US: image reviewed (right lower extremity arterial duplex) Assessment and Plan Patient with peripheral vascular disease with ulceration and rest pain. Arterial Duplex with evidence of SFA and popliteal disease with likely low flow in the tibial vessels. Patient in need of arteriogram with possible in tervention. Will make NPO after midnight and schedule in the cathlab. Plan including risk, benefits, and alternatives were discussed with the patient and she has agreed to proceed.
[2018-11-21] MEDS: MORPHINE IV PRN ×2 (15:51→20:04)
[2018-11-21] MEDS: PROTONIX PO SCH ×2 (15:56→22:52)
[2018-11-21] MEDS: IMDUR PO SCH (15:56)
[2018-11-21] MEDS: ZESTRIL PO SCH (15:58)
[2018-11-21] MEDS: SODIUM CHLORIDE FLUSH SYRINGE 10 ML IV SCH ×2 (15:59→22:53)
[2018-11-21 17:52] LABS: Hepatitis B Surface Antigen Non-Reactive (Negative); Hepatitis C Virus Antibody Non-Reactive (NonReactive)
[2018-11-22 05:33] LABS: Hematocrit 27.6 % (30.3-42.9); Hemoglobin 8.9 gm/dl (10.1-14.3); Mean Corpuscular HGB Conc 32 % (30-34); Mean Corpuscular Volume 83 fl (79-97); Platelet Count 309 K/mm3 (140-440); Red Blood Count 3.31 M/mm3 (3.65-5.03); Red Cell Distribution Width 19.2 % (13.2-15.2)
[2018-11-22 05:58] LABS: Albumin 3.3 g/dL (3.9-5); Calcium 8.8 mg/dL (8.4-10.2)
[2018-11-22] MEDS: HumaLOG SUB-Q SCH ×4 (07:15→23:01)
[2018-11-22] MEDS: BACTROBAN 2% TP SCH ×3 (07:15→21:25)
[2018-11-22] MEDS ORDERED: XYLOCAINE 2% INFILTRATI ONE (08:18)
[2018-11-22] MEDS ORDERED: HEPARIN/NS 5000 UNIT/500ML(CATH LAB) 1,000 ML IR ONE (08:18)
[2018-11-22] MEDS ORDERED: NACL 0.9% 500 ML 500 ML ONE (08:18)
[2018-11-22] MEDS: SUBLIMAZE ONE ×7 (08:43→10:18)
[2018-11-22] MEDS: VERSED ONE ×4 (08:43→09:39)
[2018-11-22] MEDS: HEPARIN 10,000 UNITS/10 ML ONE ×2 (08:55→09:28)
[2018-11-22] MEDS ORDERED: NITROGLYCERIN SYRINGE 6 ML ONE (09:24)
[2018-11-22] MEDS ORDERED: CALAN ONE (09:24)
[2018-11-22] MEDS: BENADRYL ONE ×2 (09:27→09:42)
[2018-11-22] MEDS ORDERED: SUBLIMAZE ONE (10:23)
[2018-11-22] MEDS: MORPHINE IV PRN (11:07)
[2018-11-22] MEDS: SODIUM CHLORIDE FLUSH SYRINGE 10 ML IV SCH ×2 (11:10→21:05)
--- NOTE | 2018-11-22 11:38 | Operative Report ---
Operative Report Operative Report: Exam: Aortogram and right lower extremity angiography Clinical indication: Patient with a history of peripheral vascular disease and nonhealing ulcer (critical limb) Date: 11/22/2018 Procedure: Following an expiration of the risks, benefits and alternatives; written informed consent was obtained. The patient was brought to the angiographic suite and placed in supine position on the examination table. Initial ultrasound evaluation of her left groin demonstrated a patent left common femoral artery. The patient's left groin was prepped and draped in the usual sterile fashion. 1% lidocaine was used for anesthesia. Under ultrasound guidance, the left common femoral artery was cannulated with a 7 cm 21-gauge needle. A 0.035 guidewire was advanced centrally. The needle was removed and a 5 [place] sheath placed. An Omni flush catheter was advanced over the guidewire under fluoroscopy to the distal abdominal aorta. Angiography was performed. There is scattered atherosclerotic disease without hemodynamically significant stenosis involving the distal abdominal aorta, bilateral common iliac and bilateral external iliac arteries. The bifurcation was crossed using the Omni flush catheter guidewire. Additional angiography was performed in the right external iliac artery, right common femoral artery, right superficial femoral artery proximally and mid. This demonstrates multisegment 80-90% stenosis involving the SFA in the proximal and midportion with complete occlusion of the mid to distal portion of the SFA and reconstitution through collaterals. Imaging below the knee demonstrates a patent peroneal artery. The posterior tibial artery and anterior tibial artery are occluded. The 5 [place] sheath was exchanged for a 7 [place] sheath over the guidewire under fluoroscopy and the Omni flush catheter exchanged for a vertebral catheter. The vertebral catheter and guidewire were advanced to the margin of the occlusion in the distal SFA. Attempts to cross E occlusion from antegrade approach were unsuccessful using a variety of guidewires and catheters. The patient's right foot was then prepped and draped in the usual sterile fashion. Additional 1% lidocaine was used for anesthesia. The occluded posterior tibial artery was cannulated with a 3-1/2 cm 21-gauge needle. A 0.018 guidewire was advanced up the posterior tibial artery. The needle was exchanged for the inner portion of a 4 [place] micro-sheath. Contrast was injected through the micro-sheath which demonstrate occlusion of the posterior tibial artery. The posterior tibial artery distally fills from the peroneal artery. There is retrograde flow into the peroneal artery. The peroneal artery appears to be the predominant flow to the foot. A V 18 guidewire was advanced through the micro-sheath. The V 18 guidewire was advanced through the occluded posterior tibial artery and popliteal artery. The micro-sheath was exchanged for an 018 Trailblazer catheter. The Trailblazer catheter advanced to the midportion of the posterior tibial artery but no further. The V 18 guidewire was able to be advanced to the margin of the lesion in the distal SFA however, would not cross retrograde and without sufficient support the wire continue to buckle. The V 18 guidewire was exchanged for a choice PT 014 guidewire and the 018 Trailblazer exchanged for an 014 Trailblazer. 14 Trailblazer would also not advance past the distal posterior tibial artery. The choice PT guidewire was advanced to the inferior margin of the occlusion however would not cross without sufficient support. At this point, the guidewires, catheters and sheaths were removed and hemostasis achieved in the left groin using an Angio-Seal arterial closure device. Hemostasis was achieved in the right foot using manual compression. Sterile pressure dressing for then applied. The patient tolerated the procedure well. There were no immediate postprocedure complications. Conscious sedation was performed on the guidance of radiologic nursing. Continuous cardiopulmonary monitoring was utilized. Impression: 1) Aortogram and right lower extremity angiography demonstrating multifocal 80-90% stenosis within the proximal and mid SFA with complete occlusion of the mid to distal SFA and reconstitution of the popliteal artery and distal SFA through collaterals. There is single vessel runoff to the foot throughout peroneal artery. 2) Attempted revascularization from both an antegrade and pedal approach as described without success. 3) The patient will need to be rescheduled for revascularization procedure on her right leg with anesthesia from both an antegrade and popliteal artery approach.
[2018-11-22] MEDS: PROTONIX PO SCH ×2 (13:00→21:05)
[2018-11-22] MEDS: IMDUR PO SCH (13:00)
[2018-11-22] MEDS: ZESTRIL PO SCH (13:01)
[2018-11-22] MEDS: PERCOCET 5/325 PO PRN ×2 (13:08→21:04)
--- NOTE | 2018-11-22 13:14 | Progress Note ---
Assessment and Plan Assessment and plan: Patient is a 68 yo AA woman with a history of HTN, ESRD on Tue/Thur/Sat, PVD, IDDM, GERD and AOCD who presented to [facility] ED with RLE rest pains. Acute Right leg limb ischemia s/p Aortogram Impression: 1) Aortogram and right lower extremity angiography demonstrating multifocal 80-90% stenosis within the proximal and mid SFA with complete occlusion of the mid to distal SFA and reconstitution of the popliteal artery and distal SFA through collaterals. There is single vessel runoff to the foot throughout peroneal artery. 2) Attempted revascularization from both an antegrade and pedal approach as described without success. 3) The patient will need to be rescheduled for revascularization procedure on her right leg with anesthesia from both an antegrade and popliteal artery approach. 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 Follow-up on current diagnosis RLE ischemia with pains. No overnight events reported to me. Patient denies any chest pain, shortness breath, nausea/vomiting or severe headaches. Imaging, nursing note, chart, labs and old chart reviewed. Discussed with patient. IV morphine is not help with the right leg severe pains. Hospitalist Physical - Physical exam Narrative exam: Gen: thin frail, NAD, Awake, Alert, Orientated HEENT: NCAT, EOMI, PERRL, OP Clear Neck: supple, no adenopathy, no thyromegaly, no JVD CVS/Heart: RRR, normal S1S2, pulses present bilaterally Chest/Lungs: CTA B, Symmetrical chest expansion, good air entry bilaterally GI/Abdomen: soft, NTND, good bowel sounds, no guarding or rebound /Bladder: no suprapubic tenderness, no CVA or paraspinal tenderness Extermity/Skin: top of right foot ulcer MSK: FROM x 4 Neuro: CN 2-12 grossly intact, no new focal deficits Psych: calm - Constitutional Vitals: Temp Pulse Resp BP Pulse Ox 98.0 F 95 H 16 158/75 98 11/22/18 11:02 11/22/18 13:00 11/22/18 11:33 11/22/18 13:00 11/22/18 11:33 General appearance: Present: no acute distress Results - Labs CBC & Chem 7: 11/22/18 04:18 11/22/18 04:18 Labs: Laboratory Last Values WBC 5.2 K/mm3 (4.5-11.0) 11/22/18 04:18 RBC 3.31 M/mm3 (3.65-5.03) L 11/22/18 04:18 Hgb 8.9 gm/dl (10.1-14.3) L 11/22/18 04:18 Hct 27.6 % (30.3-42.9) L 11/22/18 04:18 MCV 83 fl (79-97) 11/22/18 04:18 MCH 27 pg (28-32) L 11/22/18 04:18 MCHC 32 % (30-34) 11/22/18 04:18 RDW 19.2 % (13.2-15.2) H 11/22/18 04:18 Plt Count 309 K/mm3 (140-440) 11/22/18 04:18 Lymph % (Auto) 10.4 % (13.4-35.0) L 11/20/18 23:30 [place] % (Auto) 8.1 % (0.0-7.3) H 11/20/18 23:30 Eos % (Auto) 3.3 % (0.0-4.3) 11/20/18 23:30 Baso % (Auto) 1.1 % (0.0-1.8) 11/20/18 23:30 Lymph # 0.8 K/mm3 (1.2-5.4) L 11/20/18 23:30 [place] # 0.6 K/mm3 (0.0-0.8) 11/20/18 23:30 Eos # 0.3 K/mm3 (0.0-0.4) 11/20/18 23:30 Baso # 0.1 K/mm3 (0.0-0.1) 11/20/18 23:30 Seg Neutrophils % 77.1 % (40.0-70.0) H 11/20/18 23:30 Seg Neutrophils # 6.0 K/mm3 (1.8-7.7) 11/20/18 23:30 PT 14.5 Sec. (12.2-14.9) 11/21/18 06:59 INR 1.16 (0.87-1.13) H 11/21/18 06:59 APTT 45.8 Sec. (24.2-36.6) H 11/21/18 06:59 Heparin Anti-Xa Level 0.10 U.I./ml (0.3-0.7) L 11/22/18 00:21 Sodium 139 mmol/L (137-145) 11/22/18 04:18 Potassium 3.9 mmol/L (3.6-5.0) 11/22/18 04:18 Chloride 99.8 mmol/L (98-107) 11/22/18 04:18 Carbon Dioxide 26 mmol/L (22-30) 11/22/18 04:18 17 mmol/L 11/22/18 04:18 BUN 22 mg/dL (7-17) H 11/22/18 04:18 3.6 mg/dL (0.7-1.2) H 11/22/18 04:18 Estimated GFR 15 ml/min 11/22/18 04:18 6 % 11/22/18 04:18 Glucose 148 mg/dL (65-100) H 11/22/18 04:18 POC Glucose 122 (70-105) H 11/22/18 11:26 Calcium 8.8 mg/dL (8.4-10.2) 11/22/18 04:18 0.20 mg/dL (0.1-1.2) 11/22/18 04:18 AST 21 units/L (5-40) 11/22/18 04:18 ALT 9 units/L (7-56) 11/22/18 04:18 96 units/L (35-129) 11/22/18 04:18 6.2 g/dL (6.3-8.2) L 11/22/18 04:18 3.3 g/dL (3.9-5) L 11/22/18 04:18 1.1 % 11/22/18 04:18 Hepatitis A IgM Ab Non-reactive (NonReactive) 11/21/18 16:28 Hep Bs Antigen Non-reactive (Negative) 11/21/18 16:28 Hep B Core IgM Ab Non-reactive (NonReactive) 11/21/18 16:28 Non-reactive (NonReactive) 11/21/18 16:28 Active Medications - Current Medications Current Medications: Generic Name Dose Route Start Last Admin Trade Name Freq PRN Reason Stop Dose Admin Acetaminophen 650 mg 11/21/18 06:16 Tylenol PO Q4H PRN Pain MILD(1-3)/Fever >100.5/PEREZ Albumin Human 25 gm 11/21/18 09:01 Alburx 25% (Albumin) IV ANTOINETTE PRN Hypotension Clonidine HCl 0.1 mg 11/21/18 06:41 Catapres PO TID PRN Blood Pressure Dextrose 50 ml 11/21/18 06:16 D50w (25gm) Syringe IV PRN PRN Hypoglycemia Diphenhydramine HCl 25 mg 11/21/18 23:26 11/22/18 00:00 Benadryl PO 25 mg Q6H PRN Administration Itching Epoetin Khurram 10,000 unit 11/21/18 09:01 11/21/18 14:30 Procrit IV 10,000 unit ANTOINETTE PRN Administration hemodialysis Heparin Sodium (Porcine) 2,000 unit 11/21/18 09:01 Heparin 10,000 Units/10 Ml IV ANTOINETTE PRN hemodialysis Hydromorphone HCl 1 mg 11/22/18 13:09 Dilaudid IV Q4H PRN Pain , Severe (7-10) Heparin Sodium/Sodium Chloride 25,000 unit in 500 mls @ 18 mls/hr 11/21/18 07:00 11/22/18 01:53 Heparin/ 0.45% Nacl-25,000 Unit/500 Ml IV 800 units/hr TITR CALIXTO 16 mls/hr Titration Protocol 900 UNITS/HR Sodium Chloride 100 mls @ 999 mls/hr 11/21/18 09:01 Nacl 0.9% IV ANTOINETTE PRN Hypotension Insulin Human Lispro 0 unit 11/21/18 07:30 11/22/18 11:31 Humalog SUB-Q Not Given ACHS CALIXTO Protocol Isosorbide Mononitrate 30 mg 11/21/18 10:00 11/22/18 13:00 Imdur PO 30 mg QDAY CALIXTO Administration Lisinopril 5 mg 11/21/18 10:00 11/22/18 13:01 Zestril PO 5 mg DAILY CALIXTO Administration Miscellaneous Medication 630 mg 11/21/18 08:00 Ferric Citrate PO TIDWM CALIXTO Mupirocin 1 applic 11/21/18 08:00 11/22/18 12:59 Bactroban 2% TP 1 applic TID CALIXTO Administration Naloxone HCl 0.1 mg 11/21/18 06:16 Narcan 0.4 Mg/1 Ml IV Q2MIN PRN Res Rate </= 8 or 02 SAT < 92% Ondansetron HCl 4 mg 11/21/18 06:16 Zofran IV Q8H PRN Nausea And Vomiting Oxycodone/Acetaminophen 1 tab 11/21/18 06:16 11/22/18 13:08 Percocet 5/325 PO 1 tab Q6H PRN Administration Pain, Moderate (4-6) Pantoprazole Sodium 40 mg 11/21/18 10:00 11/22/18 13:00 Protonix PO 40 mg BID CALIXTO Administration Sodium Chloride 10 ml 11/21/18 10:00 11/22/18 11:10 Sodium Chloride Flush Syringe 10 Ml IV 10 ml BID CALIXTO Administration Sodium Chloride 10 ml 11/21/18 06:16 Sodium Chloride Flush Syringe 10 Ml IV PRN PRN LINE FLUSH
--- NOTE | 2018-11-22 14:03 | Progress Note ---
Assessment and Plan Patient will need to be rescheduled with anesthesia at their earliest convenience for revascularization procedure of her right leg. Additionally, the patient will need to see wound care and be set up in the wound care clinic on discharge. Subjective Date of service: 11/22/18 Principal diagnosis: PVD with nonhealing ulcer Interval history: Patient with a history of end-stage renal disease as well as peripheral vascular disease with a nonhealing ulcer involving her right foot. She underwent attempted revascularization today however, given her anatomy and agitation with sedation medications was unable to be completed. She'll need to be rescheduled with anesthesia. Objective - Constitutional Vitals: Vital Signs - 12hr 11/22/18 11/22/18 11/22/18 11:02 11:11 11:33 Temperature 98.0 F Pulse Rate 95 H 85 Pulse Rate [ 95 H Left Brachial] Respiratory 16 16 16 Rate Blood Pressure Blood Pressure 135/86 122/61 [Right] O2 Sat by Pulse 96 96 98 Oximetry 11/22/18 13:00 Temperature Pulse Rate 95 H Pulse Rate [ Left Brachial] Respiratory Rate Blood Pressure 158/75 Blood Pressure [Right] O2 Sat by Pulse Oximetry General appearance: Present: no acute distress - EENT Eyes: EOM intact ENT: hearing intact - Neck Neck: supple, normal ROM - Respiratory Respiratory effort: normal Extremities: abnormal - Gastrointestinal General gastrointestinal: Present: deferred - Genitourinary Female genitourinary: deferred - Psychiatric Psychiatric: appropriate mood/affect, cooperative - Labs CBC & Chem 7: 11/22/18 04:18 11/22/18 04:18 Labs: Abnormal lab results 11/21/18 11/21/18 11/22/18 Range/Units 16:28 21:37 00:21 RBC (3.65-5.03) M/mm3 Hgb (10.1-14.3) gm/dl Hct (30.3-42.9) % MCH (28-32) pg RDW (13.2-15.2) % Heparin Anti-Xa Level < 0.10 L 0.10 L (0.3-0.7) U.I./ml BUN (7-17) mg/dL Creatinine (0.7-1.2) mg/dL Glucose (65-100) mg/dL POC Glucose 138 H (70-105) Total Protein (6.3-8.2) g/dL Albumin (3.9-5) g/dL 11/22/18 11/22/18 11/22/18 Range/Units 04:18 04:18 11:26 RBC 3.31 L (3.65-5.03) M/mm3 Hgb 8.9 L (10.1-14.3) gm/dl Hct 27.6 L (30.3-42.9) % MCH 27 L (28-32) pg RDW 19.2 H (13.2-15.2) % Heparin Anti-Xa Level (0.3-0.7) U.I./ml BUN 22 H (7-17) mg/dL Creatinine 3.6 H (0.7-1.2) mg/dL Glucose 148 H (65-100) mg/dL POC Glucose 122 H (70-105) Total Protein 6.2 L (6.3-8.2) g/dL Albumin 3.3 L (3.9-5) g/dL Medications & Allergies - Medications Allergies/Adverse Reactions: Allergies erythromycin base [Erythromycin Base] Allergy (Verified 10/26/18 18:04) Rash PATIENT ASK ME TO REMOVEDMED ON ALLERGY LIST. Home Medications: Home Medications Medication Instructions Recorded Confirmed Last Taken Type Ferric Citrate (Nf) [Auryxia] 630 mg PO TIDWM 09/05/18 11/21/18 11/18/18 History Pantoprazole [Protonix TAB] 40 mg PO BID #60 tablet 10/03/18 11/21/18 10/16/18 20:00 Rx ISOSORBIDE MONOnitrate [Imdur ER] 30 mg PO QDAY #30 tablet 10/04/18 11/21/18 Unknown Rx Lisinopril [Zestril TAB] 5 mg PO DAILY #30 tablet 10/04/18 11/21/18 Unknown Rx cloNIDine [Catapres] 0.1 mg PO TID PRN 10/17/18 11/21/18 Unknown History Mupirocin [Bactroban 2%] 1 applic TP TID #1 tube 10/29/18 11/21/18 Unknown Rx Active Medications: Generic Name Dose Route Start Last Admin Trade Name Freq PRN Reason Stop Dose Admin Acetaminophen 650 mg 11/21/18 06:16 Tylenol PO Q4H PRN Pain MILD(1-3)/Fever >100.5/PEREZ Albumin Human 25 gm 11/21/18 09:01 Alburx 25% (Albumin) IV ANTOINETTE PRN Hypotension Clonidine HCl 0.1 mg 11/21/18 06:41 Catapres PO TID PRN Blood Pressure Dextrose 50 ml 11/21/18 06:16 D50w (25gm) Syringe IV PRN PRN Hypoglycemia Diphenhydramine HCl 25 mg 11/21/18 23:26 11/22/18 00:00 Benadryl PO 25 mg Q6H PRN Administration Itching Epoetin Khurram 10,000 unit 11/21/18 09:01 11/21/18 14:30 Procrit IV 10,000 unit ANTOINETTE PRN Administration hemodialysis Heparin Sodium (Porcine) 2,000 unit 11/21/18 09:01 Heparin 10,000 Units/10 Ml IV ANTOINETTE PRN hemodialysis Hydromorphone HCl 1 mg 11/22/18 13:09 Dilaudid IV Q4H PRN Pain , Severe (7-10) Heparin Sodium/Sodium Chloride 25,000 unit in 500 mls @ 18 mls/hr 11/21/18 07:00 11/22/18 01:53 Heparin/ 0.45% Nacl-25,000 Unit/500 Ml IV 800 units/hr TITR CALIXTO 16 mls/hr Titration Protocol 900 UNITS/HR Sodium Chloride 100 mls @ 999 mls/hr 11/21/18 09:01 Nacl 0.9% IV ANTOINETTE PRN Hypotension Insulin Human Lispro 0 unit 11/21/18 07:30 11/22/18 11:31 Humalog SUB-Q Not Given ACHS CALIXTO Protocol Isosorbide Mononitrate 30 mg 11/21/18 10:00 11/22/18 13:00 Imdur PO 30 mg QDAY CALIXTO Administration Lisinopril 5 mg 11/21/18 10:00 11/22/18 13:01 Zestril PO 5 mg DAILY CALIXTO Administration Miscellaneous Medication 630 mg 11/21/18 08:00 Ferric Citrate PO TIDWM [facility] Mupirocin 1 applic 11/21/18 08:00 11/22/18 12:59 Bactroban 2% TP 1 applic TID CALIXTO Administration Naloxone HCl 0.1 mg 11/21/18 06:16 Narcan 0.4 Mg/1 Ml IV Q2MIN PRN Res Rate </= 8 or 02 SAT < 92% Ondansetron HCl 4 mg 11/21/18 06:16 Zofran IV Q8H PRN Nausea And Vomiting Oxycodone/Acetaminophen 1 tab 11/21/18 06:16 11/22/18 13:08 Percocet 5/325 PO 1 tab Q6H PRN Administration Pain, Moderate (4-6) Pantoprazole Sodium 40 mg 11/21/18 10:00 11/22/18 13:00 Protonix PO 40 mg BID CALIXTO Administration Sodium Chloride 10 ml 11/21/18 10:00 11/22/18 11:10 Sodium Chloride Flush Syringe 10 Ml IV 10 ml BID CALIXTO Administration Sodium Chloride 10 ml 11/21/18 06:16 Sodium Chloride Flush Syringe 10 Ml IV PRN PRN LINE FLUSH
[2018-11-22] MEDS: HEPARIN/ 0.45% NACL-25,000 UNIT/500 ML 25,000 UNIT/500 ML BAG IV SCH (16:48)
--- NOTE | 2018-11-22 19:58 | Progress Note ---
Assessment and Plan Impression: * End stage renal disease * Peripheral artery disease * Right leg ulceration --RLE doppler negative for DVT * Hypertension * Type II DM * Hx of GI bleed --Colonoscopy: No gross lesions and no blood seen in the colon. Large inter nal and external hemorrhoids. Inadequate prep --EGD: Duodenum - nodularity biopsied to r/o adenoma. Severe duodenitis of the bulb. Deep cratered pre-pyloric clean based ulcer * Secondary hyperparathyroidism * Anemia secondary to ESRD Plan: * Continue outpatient TTS schedule * UF as tolerated * Heparin gtt per primary team/vascular surgery * Vascular surgery following * Epogen TIW prn * Continue antiHTN medications * Renal diet Subjective Date of service: 11/22/18 Principal diagnosis: PVD with nonhealing ulcer Interval history: No acute events overnight. Objective - Exam Narrative Exam: Patient off the floor at time of visit - Vital Signs Vital signs: Vital Signs - 12hr 11/22/18 11/22/18 11/22/18 11:02 11:11 11:33 Temperature 98.0 F Pulse Rate 95 H 85 Pulse Rate [ 95 H Left Brachial] Respiratory 16 16 16 Rate Blood Pressure Blood Pressure 135/86 122/61 [Right] O2 Sat by Pulse 96 96 98 Oximetry 11/22/18 11/22/18 13:00 14:09 Temperature 98.5 F Pulse Rate 95 H 98 H Pulse Rate [ Left Brachial] Respiratory 18 Rate Blood Pressure 158/75 122/66 Blood Pressure [Right] O2 Sat by Pulse 100 Oximetry - Lab 11/22/18 04:18 11/22/18 04:18 Most recent lab results Calcium 8.8 mg/dL (8.4-10.2) 11/22/18 04:18 Medications & Allergies - Medications Allergies/Adverse Reactions: Allergies erythromycin base [Erythromycin Base] Allergy (Verified 10/26/18 18:04) Rash PATIENT ASK ME TO REMOVEDMED ON ALLERGY LIST. Home Medications: Home Medications Medication Instructions Recorded Confirmed Last Taken Type Ferric Citrate (Nf) [Auryxia] 630 mg PO TIDWM 09/05/18 11/21/18 11/18/18 History Pantoprazole [Protonix TAB] 40 mg PO BID #60 tablet 10/03/18 11/21/18 10/16/18 20:00 Rx ISOSORBIDE MONOnitrate [Imdur ER] 30 mg PO QDAY #30 tablet 10/04/18 11/21/18 U nknown Rx Lisinopril [Zestril TAB] 5 mg PO DAILY #30 tablet 10/04/18 11/21/18 Unknown Rx cloNIDine [Catapres] 0.1 mg PO TID PRN 10/17/18 11/21/18 Unknown History Mupirocin [Bactroban 2%] 1 applic TP TID #1 tube 10/29/18 11/21/18 Unknown Rx Active Medications: Generic Name Dose Route Start Last Admin Trade Name Freq PRN Reason Stop Dose Admin Acetaminophen 650 mg 11/21/18 06:16 Tylenol PO Q4H PRN Pain MILD(1-3)/Fever >100.5/PEREZ Albumin Human 25 gm 11/21/18 09:01 Alburx 25% (Albumin) IV ANTOINETTE PRN Hypotension Clonidine HCl 0.1 mg 11/21/18 06:41 Catapres PO TID PRN Blood Pressure Dextrose 50 ml 11/21/18 06:16 D50w (25gm) Syringe IV PRN PRN Hypoglycemia Diphenhydramine HCl 25 mg 11/21/18 23:26 11/22/18 00:00 Benadryl PO 25 mg Q6H PRN Administration Itching Epoetin Khurram 10,000 unit 11/21/18 09:01 11/21/18 14:30 Procrit IV 10,000 unit ANTOINETTE PRN Administration hemodialysis Heparin Sodium (Porcine) 2,000 unit 11/21/18 09:01 Heparin 10,000 Units/10 Ml IV ANTOINETTE PRN hemodialysis Hydromorphone HCl 1 mg 11/22/18 13:09 Dilaudid IV Q4H PRN Pain , Severe (7-10) Heparin Sodium/Sodium Chloride 25,000 unit in 500 mls @ 18 mls/hr 11/21/18 07:00 11/22/18 16:48 Heparin/ 0.45% Nacl-25,000 Unit/500 Ml IV 800 units/hr TITR CALIXTO 16 mls/hr Administration Protocol 900 UNITS/HR Sodium Chloride 100 mls @ 999 mls/hr 11/21/18 09:01 Nacl 0.9% IV ANTOINETTE PRN Hypotension Insulin Human Lispro 0 unit 11/21/18 07:30 11/22/18 16:34 Humalog SUB-Q 2 unit ACHS CALIXTO Administration Protocol Isosorbide Mononitrate 30 mg 11/21/18 10:00 11/22/18 13:00 Imdur PO 30 mg QDAY CALIXTO Administration Lisinopril 5 mg 11/21/18 10:00 11/22/18 13:01 Zestril PO 5 mg DAILY CALIXTO Administration Miscellaneous Medication 630 mg 11/21/18 08:00 Ferric Citrate PO TIDWM CALIXTO Mupirocin 1 applic 11/21/18 08:00 11/22/18 12:59 Bactroban 2% TP 1 applic TID CALIXTO Administration Naloxone HCl 0.1 mg 11/21/18 06:16 Narcan 0.4 Mg/1 Ml IV Q2MIN PRN Res Rate </= 8 or 02 SAT < 92% Ondansetron HCl 4 mg 11/21/18 06:16 Zofran IV Q8H PRN Nausea And Vomiting Oxycodone/Acetaminophen 1 tab 11/21/18 06:16 11/22/18 13:08 Percocet 5/325 PO 1 tab Q6H PRN Administration Pain, Moderate (4-6) Pantoprazole Sodium 40 mg 11/21/18 10:00 11/22/18 13:00 Protonix PO 40 mg BID CALIXTO Administration Sodium Chloride 10 ml 11/21/18 10:00 11/22/18 11:10 Sodium Chloride Flush Syringe 10 Ml IV 10 ml BID CALIXTO Administration Sodium Chloride 10 ml 11/21/18 06:16 Sodium Chloride Flush Syringe 10 Ml IV PRN PRN LINE FLUSH
[2018-11-22] MEDS: BENADRYL PO PRN ×2 (21:04)
[2018-11-23] MEDS: ZOFRAN IV PRN (00:48)
[2018-11-23] MEDS: DILAUDID IV PRN ×5 (00:49→21:02)
[2018-11-23 05:12] LABS: Hematocrit 29.4 % (30.3-42.9); Hemoglobin 9.3 gm/dl (10.1-14.3)
[2018-11-23] MEDS ORDERED: NACL 0.9 (PRIMING MACHINE ONLY DIALYSIS) MC ONE (08:32)
--- NOTE | 2018-11-23 10:55 | Progress Note ---
Subjective Principal diagnosis: PVD with nonhealing ulcer Interval history: Patient was seen today for follow-up on multiple renal related issues Events of this hospitalization noted She is currently in hemodialysis Tuesday Has had upper endoscopy as well as colonoscopy Status post angiogram Patient denies having any chest pain pressure or shortness of breath Vitals labs intake output medications were reviewed Social history: Reviewed Allergies: Reviewed Family history: Reviewed Physical examination HEENT: Oral mucosa moist no pallor or icterus Neck: Supple no JVD Chest: Clear to auscultation anteriorly CVS: Regular rate and rhythm S1 and S2 heard Abdomen: Soft nontender no suprapubic masses no organomegaly appreciable Extremity: Dry skin less than 1+ peripheral edema Musculoskeletal: No joint effusion noted in knees and ankle Neurological: Alert awake Dermatology: No petechial rashes Psychiatry: No evidence of any agitation and aggression noted Assessment and plan; End-stage renal disease: Patient will continue with hemodialysis on Tuesday schedule ultrafiltration only as tolerated avoid hypotension with peripheral arterial disease Anemia in end-stage renal disease: Complicated by history of GI bleed status post colonoscopy being ruled out for adenoma in the duodenum she has duodenitis avoid any binder such as Renvela on Renagel, Secondary hyperparathyroidism periodically check phosphorus and PTH level, goal phosphorus less than 5.5 PTH less than 600, educated about renal osteodystrophy Hypertension and volume: , Adjust medications as needed, ultrafiltration as tolerated keep systolic blood pressure above 100 Malnutrition risk: High please consider high protein diet as well as nutrition follow-up, patient needs at least 1.5 g protein per KG body weight Dialysis access: Currently working well, discussed about monitoring Dietary counseling and education: Done at length to improve outcome with end- stage renal disease Peripheral arterial disease: Status post right lower extremity angiogram, patient has had nonhealing ulcer of the foot will need to follow-up with wound care, vascular Hypertension: Appears to be stable blood pressure 131/57 Anemia in end-stage renal disease current hemoglobin 9.3 improving it was 8.9 earlier From dialysis standpoint patient's electrolytes appear to be stable she is malnourished she needs to be on a high protein diet and must follow-up with dietitian, Patient was adequately counseled and educated regarding multiple renal related issues Pertinent lab findings were discussed with patient and patient does exhibit good understanding of renal issues. We'll continue to follow and make recommendation from renal standpoint Objective - Vital Signs Vital signs: Vital Signs - 12hr 11/22/18 11/23/18 23:00 02:16 Temperature 98.5 F Pulse Rate 93 H Pulse Rate [ 98 H Left Brachial] Respiratory 18 16 Rate Blood Pressure 131/57 O2 Sat by Pulse 100 100 Oximetry - Lab 11/23/18 04:22 11/22/18 04:18 Most recent lab results Calcium 8.8 mg/dL (8.4-10.2) 11/22/18 04:18 Medications & Allergies - Medications Allergies/Adverse Reactions: Allergies erythromycin base [Erythromycin Base] Allergy (Verified 10/26/18 18:04) Rash PATIENT ASK ME TO REMOVEDMED ON ALLERGY LIST. Home Medications: Home Medications Medication Instructions Recorded Confirmed Last Taken Type Ferric Citrate (Nf) [Auryxia] 630 mg PO TIDWM 09/05/18 11/21/18 11/18/18 History Pantoprazole [Protonix TAB] 40 mg PO BID #60 tablet 10/03/18 11/21/18 10/16/18 20:00 Rx ISOSORBIDE MONOnitrate [Imdur ER] 30 mg PO QDAY #30 tablet 10/04/18 11/21/18 Unknown Rx Lisinopril [Zestril TAB] 5 mg PO DAILY #30 tablet 10/04/18 11/21/18 Unknown Rx cloNIDine [Catapres] 0.1 mg PO TID PRN 10/17/18 11/21/18 Unknown History Mupirocin [Bactroban 2%] 1 applic TP TID #1 tube 10/29/18 11/21/18 Unknown Rx Active Medications: Generic Name Dose Route Start Last Admin Trade Name Freq PRN Reason Stop Dose Admin Acetaminophen 650 mg 11/21/18 06:16 Tylenol PO Q4H PRN Pain MILD(1-3)/Fever >100.5/PEREZ Albumin Human 25 gm 11/21/18 09:01 Alburx 25% (Albumin) IV ANTOINETTE PRN Hypotension Clonidine HCl 0.1 mg 11/21/18 06:41 Catapres PO TID PRN Blood Pressure Dextrose 50 ml 11/21/18 06:16 D50w (25gm) Syringe IV PRN PRN Hypoglycemia Diphenhydramine HCl 25 mg 11/21/18 23:26 11/22/18 21:04 Benadryl PO 25 mg Q6H PRN Administration Itching Epoetin Khurram 10,000 unit 11/21/18 09:01 11/21/18 14:30 Procrit IV 10,000 unit ANTOINETTE PRN Administration hemodialysis Heparin Sodium (Porcine) 2,000 unit 11/21/18 09:01 Heparin 10,000 Units/10 Ml IV ANTOINETTE PRN hemodialysis Hydromorphone HCl 1 mg 11/22/18 13:09 11/23/18 04:37 Dilaudid IV 1 mg Q4H PRN Administration Pain , Severe (7-10) Heparin Sodium/Sodium Chloride 25,000 unit in 500 mls @ 18 mls/hr 11/21/18 07:00 11/23/18 06:48 Heparin/ 0.45% Nacl-25,000 Unit/500 Ml IV 750 units/hr TITR CAL[facility]TO 15 mls/hr Titration Protocol 900 UNITS/HR Sodium Chloride 100 mls @ 999 mls/hr 11/21/18 09:01 Nacl 0.9% IV ANTOINETTE PRN Hypotension Insulin Human Lispro 0 unit 11/21/18 07:30 11/22/18 23:01 Humalog SUB-Q Not Given ACHS [facility] Protocol Isosorbide Mononitrate 30 mg 11/21/18 10:00 11/22/18 13:00 Imdur PO 30 mg QDAY [facility] Administration Lisinopril 5 mg 11/21/18 10:00 11/22/18 13:01 Zestril PO 5 mg DAILY [facility] Administration Miscellaneous Medication 630 mg 11/21/18 08:00 Ferric Citrate PO TIDWM [facility] Mupirocin 1 applic 11/21/18 08:00 11/22/18 21:25 Bactroban 2% TP 1 applic TID [facility] Administration Naloxone HCl 0.1 mg 11/21/18 06:16 Narcan 0.4 Mg/1 Ml IV Q2MIN PRN Res Rate </= 8 or 02 SAT < 92% Ondansetron HCl 4 mg 11/21/18 06:16 11/23/18 00:48 Zofran IV 4 mg Q8H PRN Administration Nausea And Vomiting Oxycodone/Acetaminophen 1 tab 11/21/18 06:16 11/22/18 21:04 Percocet 5/325 PO 1 tab Q6H PRN Administration Pain, Moderate (4-6) Pantoprazole Sodium 40 mg 11/21/18 10:00 11/22/18 21:05 Protonix PO 40 mg BID [facility] Administration Sodium Chloride 10 ml 11/21/18 10:00 11/22/18 21:05 Sodium Chloride Flush Syringe 10 Ml IV 10 ml BID [facility] Administration Sodium Chloride 10 ml 11/21/18 06:16 Sodium Chloride Flush Syringe 10 Ml IV PRN PRN LINE FLUSH
[2018-11-23] MEDS: PROCRIT IV PRN (11:30)
--- NOTE | 2018-11-23 12:10 | Progress Note ---
Assessment and Plan Assessment and plan: Patient is a 68 yo AA woman with a history of HTN, ESRD on TTS, PVD, IDDM, GERD and AOCD who [facility] with RLE rest pains. Acute Right leg limb ischemia s/p Aortogram Impression: 1) Aortogram and right lower extremity angiography demonstrating multifocal 80-90% stenosis within the proximal and mid SFA with complete occlusion of the mid to distal SFA and reconstitution of the popliteal artery and distal SFA through collaterals. There is single vessel runoff to the foot throughout peroneal artery. 2) Attempted revascularization from both an antegrade and pedal approach as described without success. 3) The patient will need to be rescheduled for revascularization procedure on her right leg with anesthesia from both an antegrade and popliteal artery approach. Patient at high risk for amputation, continue IV Heparin drip with close monitoring and analgesic support via IV Dilaudid Diabetic foot nonhealing ulcer: treat with abx Decubitus ulcer at least stage 3, poa: consulted Wound care HTN: continue antihypertensives ESRD on Hemodialysis TTS: Nephrology is following, monitor bmp closely, renal diet Anemia of chronic disease: monitor cbc closely Malnutrition, poa: consulted Hypnotherapist PAD- Prox Superficial Femoral Artery associated with critical limb ischemia, see above: Vascular Surgeon is managing Patient will need to be rescheduled with anesthesia at their earliest convenience for revascularization procedure of her right leg History Interval history: Patient was seen and examined. Follow-up on current diagnosis RLE ischemia with pains. No overnight events reported to me. Patient denies any chest pain, shortness breath, nausea/vomiting or severe headaches. Imaging, nursing note, chart, labs and old chart reviewed. Discussed with patient. IV Dilaudid is helping with the right leg severe pains. She has bleeding from the mouth with poor oral health. Hospitalist Physical - Physical exam Narrative exam: Gen: thin cachetic chronically ill appearing and disable, NAD, Awake, Alert, Orientated, bmi 18.9 HEENT: NCAT, EOMI, PERRL, OP dried blood on lip, stimata of old bleeding gums Neck: supple, no adenopathy, no thyromegaly, no JVD CVS/Heart: RRR, normal S1S2, pulses present bilaterally Chest/Lungs: CTA B, Symmetrical chest expansion, good air entry bilaterally GI/Abdomen: soft, NTND, good bowel sounds, no guarding or rebound /Bladder: no suprapubic tenderness, no CVA or paraspinal tenderness Extermity/Skin: top of right foot ulcer, pAD leg changes MSK: FROM x 4 Neuro: CN 2-12 grossly intact, no new focal deficits Psych: calm - Constitutional Vitals: Temp Pulse Resp BP Pulse Ox 98.5 F 93 H 16 131/57 100 11/23/18 02:16 11/23/18 02:16 11/23/18 02:16 11/23/18 02:16 11/23/18 02:16 General appearance: Present: no acute distress Results - Labs CBC & Chem 7: 11/23/18 04:22 11/22/18 04:18 Labs: Laboratory Last Values WBC 5.2 K/mm3 (4.5-11.0) 11/22/18 04:18 RBC 3.31 M/mm3 (3.65-5.03) L 11/22/18 04:18 Hgb 9.3 gm/dl (10.1-14.3) L 11/23/18 04:22 Hct 29.4 % (30.3-42.9) L 11/23/18 04:22 MCV 83 fl (79-97) 11/22/18 04:18 MCH 27 pg (28-32) L 11/22/18 04:18 MCHC 32 % (30-34) 11/22/18 04:18 RDW 19.2 % (13.2-15.2) H 11/22/18 04:18 Plt Count 314 K/mm3 (140-440) 11/23/18 04:22 Lymph % (Auto) 10.4 % (13.4-35.0) L 11/20/18 23:30 Boundary % (Auto) 8.1 % (0.0-7.3) H 11/20/18 23:30 Eos % (Auto) 3.3 % (0.0-4.3) 11/20/18 23:30 Baso % (Auto) 1.1 % (0.0-1.8) 11/20/18 23:30 Lymph # 0.8 K/mm3 (1.2-5.4) L 11/20/18 23:30 Boundary # 0.6 K/mm3 (0.0-0.8) 11/20/18 23:30 Eos # 0.3 K/mm3 (0.0-0.4) 11/20/18 23:30 Baso # 0.1 K/mm3 (0.0-0.1) 11/20/18 23:30 Seg Neutrophils % 77.1 % (40.0-70.0) H 11/20/18 23:30 Seg Neutrophils # 6.0 K/mm3 (1.8-7.7) 11/20/18 23:30 PT 14.5 Sec. (12.2-14.9) 11/21/18 06:59 INR 1.16 (0.87-1.13) H 11/21/18 06:59 APTT 45.8 Sec. (24.2-36.6) H 11/21/18 06:59 Heparin Anti-Xa Level 0.26 U.I./ml (0.3-0.7) L 11/23/18 04:22 Sodium 139 mmol/L (137-145) 11/22/18 04:18 Potassium 3.9 mmol/L (3.6-5.0) 11/22/18 04:18 Chloride 99.8 mmol/L (98-107) 11/22/18 04:18 Carbon Dioxide 26 mmol/L (22-30) 11/22/18 04:18 17 mmol/L 11/22/18 04:18 BUN 22 mg/dL (7-17) H 11/22/18 04:18 3.6 mg/dL (0.7-1.2) H 11/22/18 04:18 Estimated GFR 15 ml/min 11/22/18 04:18 6 % 11/22/18 04:18 Glucose 148 mg/dL (65-100) H 11/22/18 04:18 POC Glucose 96 (70-105) 11/22/18 21:07 Calcium 8.8 mg/dL (8.4-10.2) 11/22/18 04:18 0.20 mg/dL (0.1-1.2) 11/22/18 04:18 AST 21 units/L (5-40) 11/22/18 04:18 ALT 9 units/L (7-56) 11/22/18 04:18 96 units/L (35-129) 11/22/18 04:18 6.2 g/dL (6.3-8.2) L 11/22/18 04:18 3.3 g/dL (3.9-5) L 11/22/18 04:18 1.1 % 11/22/18 04:18 Hepatitis A IgM Ab Non-reactive (NonReactive) 11/21/18 16:28 Hep Bs Antigen Non-reactive (Negative) 11/21/18 16:28 Hep B Core IgM Ab Non-reactive (NonReactive) 11/21/18 16:28 Non-reactive (NonReactive) 11/21/18 16:28 Active Medications - Current Medications Current Medications: Generic Name Dose Route Start Last Admin Trade Name Freq PRN Reason Stop Dose Admin Acetaminophen 650 mg 11/21/18 06:16 Tylenol PO Q4H PRN Pain MILD(1-3)/Fever >100.5/PEREZ Albumin Human 25 gm 11/21/18 09:01 Alburx 25% (Albumin) IV ANTOINETTE PRN Hypotension Clonidine HCl 0.1 mg 11/21/18 06:41 Catapres PO TID PRN Blood Pressure Dextrose 50 ml 11/21/18 06:16 D50w (25gm) Syringe IV PRN PRN Hypoglycemia Diphenhydramine HCl 25 mg 11/21/18 23:26 11/22/18 21:04 Benadryl PO 25 mg Q6H PRN Administration Itching Epoetin Khurram 10,000 unit 11/21/18 09:01 11/21/18 14:30 Procrit IV 10,000 unit ANTOINETTE PRN Administration hemodialysis Heparin Sodium (Porcine) 2,000 unit 11/21/18 09:01 Heparin 10,000 Units/10 Ml IV ANTOINETTE PRN hemodialysis Hydromorphone HCl 1 mg 11/22/18 13:09 11/23/18 04:37 Dilaudid IV 1 mg Q4H PRN Administration Pain , Severe (7-10) Heparin Sodium/Sodium Chloride 25,000 unit in 500 mls @ 18 mls/hr 11/21/18 07:00 11/23/18 06:48 Heparin/ 0.45% Nacl-25,000 Unit/500 Ml IV 750 units/hr TITR [facility] 15 mls/hr Titration Protocol 900 UNITS/HR Sodium Chloride 100 mls @ 999 mls/hr 11/21/18 09:01 Nacl 0.9% IV ANTOINETTE PRN Hypotension Insulin Human Lispro 0 unit 11/21/18 07:30 11/22/18 23:01 Humalog SUB-Q Not Given ACHS [facility] Protocol Isosorbide Mononitrate 30 mg 11/21/18 10:00 11/22/18 13:00 Imdur PO 30 mg QDAY [facility] Administration Lisinopril 5 mg 11/21/18 10:00 11/22/18 13:01 Zestril PO 5 mg DAILY [facility] Administration Miscellaneous Medication 630 mg 11/21/18 08:00 Ferric Citrate PO TIDWM [facility] Mupirocin 1 applic 11/21/18 08:00 11/22/18 21:25 Bactroban 2% TP 1 applic TID [facility] Administration Naloxone HCl 0.1 mg 11/21/18 06:16 Narcan 0.4 Mg/1 Ml IV Q2MIN PRN Res Rate </= 8 or 02 SAT < 92% Ondansetron HCl 4 mg 11/21/18 06:16 11/23/18 00:48 Zofran IV 4 mg Q8H PRN Administration Nausea And Vomiting Oxycodone/Acetaminophen 1 tab 11/21/18 06:16 11/22/18 21:04 Percocet 5/325 PO 1 tab Q6H PRN Administration Pain, Moderate (4-6) Pantoprazole Sodium 40 mg 11/21/18 10:00 11/22/18 21:05 Protonix PO 40 mg BID [facility] Administration Sodium Chloride 10 ml 11/21/18 10:00 11/22/18 21:05 Sodium Chloride Flush Syringe 10 Ml IV 10 ml BID [facility] Administration Sodium Chloride 10 ml 11/21/18 06:16 Sodium Chloride Flush Syringe 10 Ml IV PRN PRN LINE FLUSH Nutrition/Malnutrition Assess - Dietary Evaluation Nutrition/Malnutrition Findings: Nutrition Notes Start: 11/22/18 17:49 Freq: Status: Active Protocol: Document 11/22/18 17:49 RM (Rec: 11/22/18 18:01 RM [id number]) Nutrition Notes Need for Assessment generated from: [employer] Initial or Follow up Assessment Current Diagnosis Diabetes,Hypertension Other Pertinent Diagnosis ESRD on HD (T/R/S), PVD, diabetic ulcer Current Diet Renal Labs/Tests Reviewed Pertinent Medications Reviewed Height 5 ft 2 in Weight 46.6 kg [place] Body Weight (kg) 50.00 BMI 18.8 Weight change and time frame Current wt obtained from [facility] Subjective/Other Information Screened for skin risk. NPO in place earlier today. Renal diet ordered later today . Isiah 17 points. Pt stated that her appetite is okay and that she ate 25% of her dinner yesterday. Pt requested packet of salt w/breakfast to alleviate headache from lower BP. Percent of energy/protein needs met: 37%/35% Burn Absent Trauma Absent #2 Nutrition Diagnosis Underweight Comments: for older adult Etiology decreased appetite, food preferences As Evidenced by Signs and Symptoms BMI 18.6 #1 Nutrition Diagnosis Inadequate oral intake Etiology decreased appetite, food preferences As Evidenced by Signs and Symptoms pt statement that she ate 25% of her dinner yesterday Is patient on ventilator? No Is Patient Ambulatory and/or Out of Bed No REE-([facility]-confined to bed) 1133.256 Kcal/Kg value to use for calculation 31 Approximate Energy Requirements Using 1445 kcal/Kg Calculation Used for Recommendations Kcal/kg Additional Notes Protein Needs: 55-69g (1.2-1. 5g/kg) Fluid Needs: 1 ml/kcal Nutrition Intervention Change Diet Order: Continue current Add Supplement/Snack (indicate name/kcal Nepro Vanilla, Butter Pecan /protein ) BID Provides kCal: 1,275 Provides Protein (gm) 57 Goal #1 Meet at least 75% of calorie and protein needs via PO and ONS intakes Anticipated Discharge Needs: Renal diet Follow-Up By: 11/24/18 Additional Comments Follow for PO and ONS intakes
[2018-11-23] MEDS: HumaLOG SUB-Q SCH ×4 (13:16→21:08)
[2018-11-23] MEDS: BACTROBAN 2% TP SCH ×3 (13:18→21:07)
[2018-11-23] MEDS: IMDUR PO SCH (13:37)
[2018-11-23] MEDS: PROTONIX PO SCH ×2 (13:40→21:07)
[2018-11-23] MEDS: ZESTRIL PO SCH (13:40)
[2018-11-23] MEDS: SODIUM CHLORIDE FLUSH SYRINGE 10 ML IV SCH ×2 (13:41→21:08)
[2018-11-23] MEDS: BENADRYL PO PRN (21:07)
[2018-11-24] MEDS: HEPARIN/ 0.45% NACL-25,000 UNIT/500 ML 25,000 UNIT/500 ML BAG IV SCH (04:20)
[2018-11-24] MEDS: BACTROBAN 2% TP SCH ×3 (08:05→20:02)
[2018-11-24] MEDS: HumaLOG SUB-Q SCH ×4 (08:45→23:16)
[2018-11-24] MEDS: DILAUDID IV PRN ×2 (10:18→23:16)
[2018-11-24] MEDS: SODIUM CHLORIDE FLUSH SYRINGE 10 ML IV SCH ×2 (10:20→21:46)
--- NOTE | 2018-11-24 11:15 | Progress Note ---
Assessment and Plan Impression: * End stage renal disease * Peripheral artery disease * Right leg ulceration --RLE doppler negative for DVT * Hypertension * Type II DM * Hx of GI bleed --Colonoscopy: No gross lesions and no blood seen in the colon. Large inter nal and external hemorrhoids. Inadequate prep --EGD: Duodenum - nodularity biopsied to r/o adenoma. Severe duodenitis of the bulb. Deep cratered pre-pyloric clean based ulcer * Secondary hyperparathyroidism * Anemia secondary to ESRD Plan: * Continue outpatient TTS schedule * UF as tolerated * Heparin gtt per primary team/vascular surgery * Vascular surgery following * Epogen TIW prn * Continue antiHTN medications * Renal diet Subjective Date of service: 11/24/18 Principal diagnosis: PVD with nonhealing ulcer Interval history: Patient reports right leg pain alleviated with medication. Objective - Vital Signs Vital signs: Vital Signs - 12hr 11/24/18 11/24/18 11/24/18 02:27 07:21 08:00 Temperature 99.8 F H 97.8 F Pulse Rate 104 H 107 H Pulse Rate [ Left Brachial] Respiratory 18 20 Rate Respiratory 18 Rate [Right Leg ] Blood Pressure 135/65 150/71 O2 Sat by Pulse 99 96 Oximetry 11/24/18 11/24/18 10:18 11:00 Temperature Pulse Rate Pulse Rate [ 107 H Left Brachial] Respiratory 18 18 Rate Respiratory Rate [Right Leg ] Blood Pressure O2 Sat by Pulse 96 Oximetry - General Appearance General appearance: frail EENT: ATNC Respiratory: Present: Clear to Ascultation Cardiology: regular, S1S2 Gastrointestinal: normal, no tenderness, no distended Neurologic: alert and oriented x3 Psychiatric: cooperative - Lab 11/23/18 04:22 11/22/18 04:18 Most recent lab results Calcium 8.8 mg/dL (8.4-10.2) 11/22/18 04:18 Medications & Allergies - Medications Allergies/Adverse Reactions: Allergies erythromycin base [Erythromycin Base] Allergy (Verified 10/26/18 18:04) Rash PATIENT ASK ME TO REMOVEDMED ON ALLERGY LIST. Home Medications: Home Medications Medication Instructions Recorded Confirmed Last Taken Type Ferric Citrate (Nf) [Auryxia] 630 mg PO TIDWM 09/05/18 11/21/18 11/18/18 History Pantoprazole [Protonix TAB] 40 mg PO BID #60 tablet 10/03/18 11/21/18 10/16/18 20:00 Rx ISOSORBIDE MONOnitrate [Imdur ER] 30 mg PO QDAY #30 tablet 10/04/18 11/21/18 Unknown Rx Lisinopril [Zestril TAB] 5 mg PO DAILY #30 tablet 10/04/18 11/21/18 Unknown Rx cloNIDine [Catapres] 0.1 mg PO TID PRN 10/17/18 11/21/18 Unknown History Mupirocin [Bactroban 2%] 1 applic TP TID #1 tube 10/29/18 11/21/18 Unknown Rx Active Medications: Generic Name Dose Route Start Last Admin Trade Name Freq PRN Reason Stop Dose Admin Acetaminophen 650 mg 11/21/18 06:16 Tylenol PO Q4H PRN Pain MILD(1-3)/Fever >100.5/PEREZ Albumin Human 25 gm 11/21/18 09:01 Alburx 25% (Albumin) IV ANTOINETTE PRN Hypotension Clonidine HCl 0.1 mg 11/21/18 06:41 Catapres PO TID PRN Blood Pressure Dextrose 50 ml 11/21/18 06:16 D50w (25gm) Syringe IV PRN PRN Hypoglycemia Diphenhydramine HCl 25 mg 11/21/18 23:26 11/23/18 21:07 Benadryl PO 25 mg Q6H PRN Administration Itching Epoetin Khurram 10,000 unit 11/21/18 09:01 11/23/18 11:30 Procrit IV 10,000 unit ANTOINETTE PRN Administration hemodialysis Heparin Sodium (Porcine) 2,000 unit 11/21/18 09:01 Heparin 10,000 Units/10 Ml IV ANTOINETTE PRN hemodialysis Hydromorphone HCl 1 mg 11/22/18 13:09 11/24/18 10:18 Dilaudid IV 1 mg Q4H PRN Administration Pain , Severe (7-10) Heparin Sodium/Sodium Chloride 25,000 unit in 500 mls @ 18 mls/hr 11/21/18 07:00 11/24/18 04:20 Heparin/ 0.45% Nacl-25,000 Unit/500 Ml IV 750 units/hr TITR CALIXTO 15 mls/hr Administration Protocol 900 UNITS/HR Sodium Chloride 100 mls @ 999 mls/hr 11/21/18 09:01 Nacl 0.9% IV ANTOINETTE PRN Hypotension Insulin Human Lispro 0 unit 11/21/18 07:30 11/24/18 08:45 Humalog SUB-Q Not Given ACHS [facility] Protocol Isosorbide Mononitrate 30 mg 11/21/18 10:00 11/23/18 13:37 Imdur PO 30 mg QDAY [facility] Administration Lisinopril 5 mg 11/21/18 10:00 11/23/18 13:40 Zestril PO 5 mg DAILY [facility] Administration Miscellaneous Medication 630 mg 11/21/18 08:00 Ferric Citrate PO TIDWM [facility] Mupirocin 1 applic 11/21/18 08:00 11/24/18 08:05 Bactroban 2% TP 1 applic TID [facility] Administration Naloxone HCl 0.1 mg 11/21/18 06:16 Narcan 0.4 Mg/1 Ml IV Q2MIN PRN Res Rate </= 8 or 02 SAT < 92% Ondansetron HCl 4 mg 11/21/18 06:16 11/23/18 00:48 Zofran IV 4 mg Q8H PRN Administration Nausea And Vomiting Oxycodone/Acetaminophen 1 tab 11/21/18 06:16 11/22/18 21:04 Percocet 5/325 PO 1 tab Q6H PRN Administration Pain, Moderate (4-6) Pantoprazole Sodium 40 mg 11/21/18 10:00 11/23/18 21:07 Protonix PO 40 mg BID [facility] Administration Sodium Chloride 10 ml 11/21/18 10:00 11/24/18 10:20 Sodium Chloride Flush Syringe 10 Ml IV 10 ml BID [facility] Administration Sodium Chloride 10 ml 11/21/18 06:16 Sodium Chloride Flush Syringe 10 Ml IV PRN PRN LINE FLUSH
[2018-11-24] MEDS: PROTONIX PO SCH ×2 (13:23→21:45)
[2018-11-24] MEDS: ZESTRIL PO SCH (13:25)
[2018-11-24] MEDS: IMDUR PO SCH (13:25)
--- NOTE | 2018-11-24 14:27 | Progress Note ---
Assessment and Plan Assessment and plan: Patient is a 68 yo AA woman with a history of HTN, ESRD on TTS, PVD, IDDM, GERD and AOCD who presented to [facility] ED with RLE rest pains. Acute Right leg limb ischemia s/p Aortogram Impression: 1) Aortogram and right lower extremity angiography demonstrating multifocal 80-90% stenosis within the proximal and mid SFA with complete occlusion of the mid to distal SFA and reconstitution of the popliteal artery and distal SFA through collaterals. There is single vessel runoff to the foot throughout peroneal artery. 2) Attempted revascularization from both an antegrade and pedal approach as described without success. 3) The patient will need to be rescheduled for revascularization procedure on her right leg with anesthesia from both an antegrade and popliteal artery approach. Patient at high risk for amputation, continue IV Heparin drip with close monitoring and analgesic support via IV Dilaudid Diabetic foot nonhealing ulcer: treat with abx Decubitus ulcer at least stage 3, poa: consulted Wound care HTN: continue antihypertensives ESRD on Hemodialysis TTS: Nephrology is following, monitor bmp closely, renal diet Anemia of chronic disease: monitor cbc closely Malnutrition, poa: consulted Communications Controller PAD- Prox Superficial Femoral Artery associated with critical limb ischemia, see above: Vascular Surgeon is managing Patient will need to be rescheduled with anesthesia at their earliest convenience for revascularization procedure of her right leg History Interval history: Patient was seen and examined. Follow-up on current diagnosis RLE ischemia with pains. No overnight events reported to me. Patient denies any chest pain, shortness breath, nausea/vomiting or severe headaches. Imaging, nursing note, chart, labs and old chart reviewed. Discussed with patient. IV Dilaudid is helping with the right leg severe pains. She has bleeding from the mouth with poor oral health. Hospitalist Physical - Physical exam Narrative exam: Gen: thin cachetic chronically ill appearing and disable, NAD, Awake, Alert, Orientated, bmi 18.9 HEENT: NCAT, EOMI, PERRL, OP dried blood on lip, stimata of old bleeding gums Neck: supple, no adenopathy, no thyromegaly, no JVD CVS/Heart: RRR, normal S1S2, pulses present bilaterally Chest/Lungs: CTA B, Symmetrical chest expansion, good air entry bilaterally GI/Abdomen: soft, NTND, good bowel sounds, no guarding or rebound /Bladder: no suprapubic tenderness, no CVA or paraspinal tenderness Extermity/Skin: top of right foot ulcer, pAD leg changes MSK: FROM x 4 Neuro: CN 2-12 grossly intact, no new focal deficits Psych: calm - Constitutional Vitals: Temp Pulse Resp BP Pulse Ox 97.8 F 97 H 18 126/70 96 11/24/18 07:21 11/24/18 13:25 11/24/18 11:00 11/24/18 13:25 11/24/18 11:00 General appearance: Present: no acute distress Results - Labs CBC & Chem 7: 11/23/18 04:22 11/22/18 04:18 Labs: Laboratory Last Values WBC 5.2 K/mm3 (4.5-11.0) 11/22/18 04:18 RBC 3.31 M/mm3 (3.65-5.03) L 11/22/18 04:18 Hgb 9.3 gm/dl (10.1-14.3) L 11/23/18 04:22 Hct 29.4 % (30.3-42.9) L 11/23/18 04:22 MCV 83 fl (79-97) 11/22/18 04:18 MCH 27 pg (28-32) L 11/22/18 04:18 MCHC 32 % (30-34) 11/22/18 04:18 RDW 19.2 % (13.2-15.2) H 11/22/18 04:18 Plt Count 314 K/mm3 (140-440) 11/23/18 04:22 Lymph % (Auto) 10.4 % (13.4-35.0) L 11/20/18 23:30 [place] % (Auto) 8.1 % (0.0-7.3) H 11/20/18 23:30 Eos % (Auto) 3.3 % (0.0-4.3) 11/20/18 23:30 Baso % (Auto) 1.1 % (0.0-1.8) 11/20/18 23:30 Lymph # 0.8 K/mm3 (1.2-5.4) L 11/20/18 23:30 [place] # 0.6 K/mm3 (0.0-0.8) 11/20/18 23:30 Eos # 0.3 K/mm3 (0.0-0.4) 11/20/18 23:30 Baso # 0.1 K/mm3 (0.0-0.1) 11/20/18 23:30 Seg Neutrophils % 77.1 % (40.0-70.0) H 11/20/18 23:30 Seg Neutrophils # 6.0 K/mm3 (1.8-7.7) 11/20/18 23:30 PT 14.5 Sec. (12.2-14.9) 11/21/18 06:59 INR 1.16 (0.87-1.13) H 11/21/18 06:59 APTT 45.8 Sec. (24.2-36.6) H 11/21/18 06:59 Heparin Anti-Xa Level 0.38 U.I./ml (0.3-0.7) 11/23/18 14:19 Sodium 139 mmol/L (137-145) 11/22/18 04:18 Potassium 3.9 mmol/L (3.6-5.0) 11/22/18 04:18 Chloride 99.8 mmol/L (98-107) 11/22/18 04:18 Carbon Dioxide 26 mmol/L (22-30) 11/22/18 04:18 17 mmol/L 11/22/18 04:18 BUN 22 mg/dL (7-17) H 11/22/18 04:18 3.6 mg/dL (0.7-1.2) H 11/22/18 04:18 Estimated GFR 15 ml/min 11/22/18 04:18 6 % 11/22/18 04:18 Glucose 148 mg/dL (65-100) H 11/22/18 04:18 POC Glucose 116 (70-105) H 11/24/18 11:53 Calcium 8.8 mg/dL (8.4-10.2) 11/22/18 04:18 0.20 mg/dL (0.1-1.2) 11/22/18 04:18 AST 21 units/L (5-40) 11/22/18 04:18 ALT 9 units/L (7-56) 11/22/18 04:18 96 units/L (35-129) 11/22/18 04:18 6.2 g/dL (6.3-8.2) L 11/22/18 04:18 3.3 g/dL (3.9-5) L 11/22/18 04:18 1.1 % 11/22/18 04:18 Hepatitis A IgM Ab Non-reactive (NonReactive) 11/21/18 16:28 Hep Bs Antigen Non-reactive (Negative) 11/21/18 16:28 Hep B Core IgM Ab Non-reactive (NonReactive) 11/21/18 16:28 Non-reactive (NonReactive) 11/21/18 16:28 Active Medications - Current Medications Current Medications: Generic Name Dose Route Start Last Admin Trade Name Freq PRN Reason Stop Dose Admin Acetaminophen 650 mg 11/21/18 06:16 Tylenol PO Q4H PRN Pain MILD(1-3)/Fever >100.5/PEREZ Albumin Human 25 gm 11/21/18 09:01 Alburx 25% (Albumin) IV ANTOINETTE PRN Hypotension Clonidine HCl 0.1 mg 11/21/18 06:41 Catapres PO TID PRN Blood Pressure Dextrose 50 ml 11/21/18 06:16 D50w (25gm) Syringe IV PRN PRN Hypoglycemia Diphenhydramine HCl 25 mg 11/21/18 23:26 11/23/18 21:07 Benadryl PO 25 mg Q6H PRN Administration Itching Epoetin Khurram 10,000 unit 11/21/18 09:01 11/23/18 11:30 Procrit IV 10,000 unit ANTOINETTE PRN Administration hemodialysis Heparin Sodium (Porcine) 2,000 unit 11/21/18 09:01 Heparin 10,000 Units/10 Ml IV ANTOINETTE PRN hemodialysis Hydromorphone HCl 1 mg 11/22/18 13:09 11/24/18 10:18 Dilaudid IV 1 mg Q4H PRN Administration Pain , Severe (7-10) Heparin Sodium/Sodium Chloride 25,000 unit in 500 mls @ 18 mls/hr 11/21/18 07:00 11/24/18 04:20 Heparin/ 0.45% Nacl-25,000 Unit/500 Ml IV 750 units/hr TITR CALIXTO 15 mls/hr Administration Protocol 900 UNITS/HR Sodium Chloride 100 mls @ 999 mls/hr 11/21/18 09:01 Nacl 0.9% IV ANTOINETTE PRN Hypotension Insulin Human Lispro 0 unit 11/21/18 07:30 11/24/18 12:05 Humalog SUB-Q Not Given ACHS [facility] Protocol Isosorbide Mononitrate 30 mg 11/21/18 10:00 11/24/18 13:25 Imdur PO 30 mg QDAY CALIXTO Administration Lisinopril 5 mg 11/21/18 10:00 11/24/18 13:25 Zestril PO 5 mg DAILY CALIXTO Administration Miscellaneous Medication 630 mg 11/21/18 08:00 Ferric Citrate PO TIDWM CALIXTO Mupirocin 1 applic 11/21/18 08:00 11/24/18 13:24 Bactroban 2% TP 1 applic TID CALIXTO Administration Naloxone HCl 0.1 mg 11/21/18 06:16 Narcan 0.4 Mg/1 Ml IV Q2MIN PRN Res Rate </= 8 or 02 SAT < 92% Ondansetron HCl 4 mg 11/21/18 06:16 11/23/18 00:48 Zofran IV 4 mg Q8H PRN Administration Nausea And Vomiting Oxycodone/Acetaminophen 1 tab 11/21/18 06:16 11/22/18 21:04 Percocet 5/325 PO 1 tab Q6H PRN Administration Pain, Moderate (4-6) Pantoprazole Sodium 40 mg 11/21/18 10:00 11/24/18 13:23 Protonix PO 40 mg BID CALIXTO Administration Sodium Chloride 10 ml 11/21/18 10:00 11/24/18 10:20 Sodium Chloride Flush Syringe 10 Ml IV 10 ml BID CALIXTO Administration Sodium Chloride 10 ml 11/21/18 06:16 Sodium Chloride Flush Syringe 10 Ml IV PRN PRN LINE FLUSH Nutrition/Malnutrition Assess - Dietary Evaluation Nutrition/Malnutrition Findings: Nutrition Notes Start: 11/22/18 17:49 Freq: Status: Active Protocol: Document 11/23/18 14:39 RM (Rec: 11/23/18 14:43 RM [email or web address]) Nutrition Notes Initial or Follow up Brief Note Subjective/Other Information Consulted for malnutrition. Pt already being followed. Pt asleep at time of visit. Nutrition Intervention Follow-Up By: 11/24/18 Additional Comments Follow for PO and ONS intakes, malnutrition assessment
[2018-11-24] MEDS: PERCOCET 5/325 PO PRN (17:06)
[2018-11-25 05:57] LABS: Hematocrit 31.3 % (30.3-42.9); Hemoglobin 9.8 gm/dl (10.1-14.3)
[2018-11-25] MEDS: PERCOCET 5/325 PO PRN ×2 (07:06→17:54)
[2018-11-25] MEDS: HumaLOG SUB-Q SCH ×4 (08:56→22:40)
[2018-11-25] MEDS: IMDUR PO SCH ×2 (08:56→10:00)
[2018-11-25] MEDS: PROTONIX PO SCH ×3 (08:57→22:40)
[2018-11-25] MEDS: BACTROBAN 2% TP SCH ×3 (08:57→20:07)
[2018-11-25] MEDS: SODIUM CHLORIDE FLUSH SYRINGE 10 ML IV SCH ×3 (08:58→22:41)
--- NOTE | 2018-11-25 09:33 | Progress Note ---
Subjective Principal diagnosis: PVD with nonhealing ulcer Interval history: Patient was seen today for follow-up, regarding multiple renal related issues Events of 24 hours were noted Patient is on dialysis Tuesday Patient denies any complaints of chest pain pressure or shortness of breath Interdisciplinary Notes were also reviewed from past 24 hours Vitals labs intake output medications: Reviewed Past medical history: Reviewed Allergies: Reviewed Social history: Reviewed Family history: Reviewed Physical examination Gen.: No acute distress HEENT: Mild pallor nor icterus no uremic order Neck: Supple without any mass or JVD Chest: Clear to auscultation anteriorly Heart: Regular rate and rhythm S1 and S2 heard Abdomen: Soft nontender no suprapubic fullness no masses no renal bruit Extremity: Edema , no peripheral cyanosis Skin: No petechial rashes dry skin Assessment and plan End-stage renal disease: Continue with hemodialysis on Tuesday schedule Right leg ulceration, peripheral arterial disease, Doppler negative for DVT History of GI bleed: Anemia and chronic kidney disease monitor and follow Avoid heparin with hemodialysis treatment for now Patient is to be in high protein diet will benefit from dietitian evaluation Hypertension and volume: Currently stable monitor and follow As far as labs are concerned her hemoglobin is currently improved to 9.8, last potassium was 3.9 calcium was 8.8, She stable from renal standpoint Had a detailed discussion with patient about renal care plan, We'll continue to follow and make recommendation from renal standpoint Objective - Vital Signs Vital signs: Vital Signs - 12hr 11/25/18 11/25/18 07:16 08:56 Temperature 98.8 F Pulse Rate 90 90 Respiratory 20 Rate Blood Pressure 133/62 133/62 O2 Sat by Pulse 97 Oximetry - Lab 11/25/18 05:07 11/22/18 04:18 Most recent lab results Calcium 8.8 mg/dL (8.4-10.2) 11/22/18 04:18 Medications & Allergies - Medications Allergies/Adverse Reactions: Allergies erythromycin base [Erythromycin Base] Allergy (Verified 10/26/18 18:04) Rash PATIENT ASK ME TO REMOVEDMED ON ALLERGY LIST. Home Medications: Home Medications Medication Instructions Recorded Confirmed Last Taken Type Ferric Citrate (Nf) [Auryxia] 630 mg PO TIDWM 09/05/18 11/21/18 11/18/18 History Pantoprazole [Protonix TAB] 40 mg PO BID #60 tablet 10/03/18 11/21/18 10/16/18 20:00 Rx ISOSORBIDE MONOnitrate [Imdur ER] 30 mg PO QDAY #30 tablet 10/04/18 11/21/18 Unknown Rx Lisinopril [Zestril TAB] 5 mg PO DAILY #30 tablet 10/04/18 11/21/18 Unknown Rx cloNIDine [Catapres] 0.1 mg PO TID PRN 10/17/18 11/21/18 Unknown History Mupirocin [Bactroban 2%] 1 applic TP TID #1 tube 10/29/18 11/21/18 Unknown Rx Active Medications: Generic Name Dose Route Start Last Admin Trade Name Freq PRN Reason Stop Dose Admin Acetaminophen 650 mg 11/21/18 06:16 Tylenol PO Q4H PRN Pain MILD(1-3)/Fever >100.5/PEREZ Albumin Human 25 gm 11/21/18 09:01 Alburx 25% (Albumin) IV ANTOINETTE PRN Hypotension Clonidine HCl 0.1 mg 11/21/18 06:41 Catapres PO TID PRN Blood Pressure Dextrose 50 ml 11/21/18 06:16 D50w (25gm) Syringe IV PRN PRN Hypoglycemia Diphenhydramine HCl 25 mg 11/21/18 23:26 11/23/18 21:07 Benadryl PO 25 mg Q6H PRN Administration Itching Epoetin Khurram 10,000 unit 11/21/18 09:01 11/23/18 11:30 Procrit IV 10,000 unit ANTOINETTE PRN Administration hemodialysis Heparin Sodium (Porcine) 2,000 unit 11/21/18 09:01 Heparin 10,000 Units/10 Ml IV ANTOINETTE PRN hemodialysis Hydromorphone HCl 1 mg 11/22/18 13:09 11/24/18 23:16 Dilaudid IV 1 mg Q4H PRN Administration Pain , Severe (7-10) Heparin Sodium/Sodium Chloride 25,000 unit in 500 mls @ 18 mls/hr 11/21/18 07:00 11/24/18 22:06 Heparin/ 0.45% Nacl-25,000 Unit/500 Ml IV 850 units/hr TITR CALIXTO 17 mls/hr Titration Protocol 900 UNITS/HR Sodium Chloride 100 mls @ 999 mls/hr 11/21/18 09:01 Nacl 0.9% IV ANTOINETTE PRN Hypotension Insulin Human Lispro 0 unit 11/21/18 07:30 11/25/18 08:56 Humalog SUB-Q 2 unit ACHS [facility]TO Administration Protocol Isosorbide Mononitrate 30 mg 11/21/18 10:00 11/25/18 08:56 Imdur PO 30 mg QDAY CALIXTO Administration Lisinopril 5 mg 11/21/18 10:00 11/24/18 13:25 Zestril PO 5 mg DAILY CALIXTO Administration Miscellaneous Medication 630 mg 11/21/18 08:00 Ferric Citrate PO TIDWM CALIXTO Mupirocin 1 applic 11/21/18 08:00 11/25/18 08:57 Bactroban 2% TP 1 applic TID CALIXTO Administration Naloxone HCl 0.1 mg 11/21/18 06:16 Narcan 0.4 Mg/1 Ml IV Q2MIN PRN Res Rate </= 8 or 02 SAT < 92% Ondansetron HCl 4 mg 11/21/18 06:16 11/23/18 00:48 Zofran IV 4 mg Q8H PRN Administration Nausea And Vomiting Oxycodone/Acetaminophen 1 tab 11/21/18 06:16 11/25/18 07:06 Percocet 5/325 PO 1 tab Q6H PRN Administration Pain, Moderate (4-6) Pantoprazole Sodium 40 mg 11/21/18 10:00 11/25/18 08:57 Protonix PO 40 mg BID CALIXTO Administration Sodium Chloride 10 ml 11/21/18 10:00 11/25/18 08:58 Sodium Chloride Flush Syringe 10 Ml IV 10 ml BID CALIXTO Administration Sodium Chloride 10 ml 11/21/18 06:16 Sodium Chloride Flush Syringe 10 Ml IV PRN PRN LINE FLUSH
[2018-11-25] MEDS: ZESTRIL PO SCH (10:00)
[2018-11-25] MEDS ORDERED: NACL 0.9 (PRIMING MACHINE ONLY DIALYSIS) MC ONE (10:49)
[2018-11-25] MEDS: DILAUDID IV PRN ×2 (10:59→22:53)
--- NOTE | 2018-11-25 14:06 | Progress Note ---
Assessment and Plan Assessment and plan: Patient is a 68 yo AA woman with a history of HTN, ESRD on TTS, PVD, IDDM, GERD and AOCD who presented to [facility] ED with RLE rest pains. Acute Right leg limb ischemia s/p Aortogram Impression: 1) Aortogram and right lower extremity angiography demonstrating multifocal 80-90% stenosis within the proximal and mid SFA with complete occlusion of the mid to distal SFA and reconstitution of the popliteal artery and distal SFA through collaterals. There is single vessel runoff to the foot throughout peroneal artery. 2) Attempted revascularization from both an antegrade and pedal approach as described without success. 3) The patient will need to be rescheduled for revascularization procedure on her right leg with anesthesia from both an antegrade and popliteal artery approach. 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 Follow-up on current diagnosis RLE ischemia with pains. No overnight events reported to me. Patient denies any chest pain, shortness breath, nausea/vomiting or severe headaches. Imaging, nursing note, chart, labs and old chart reviewed. Discussed with patient. IV Dilaudid is helping with the right leg severe pains. She has bleeding from the mouth with poor oral health. Hospitalist Physical - Physical exam Narrative exam: Gen: thin cachetic chronically ill appearing and disable, NAD, Awake, Alert, Orientated, bmi 18.9 HEENT: NCAT, EOMI, PERRL, OP dried blood on lip, stimata of old bleeding gums Neck: supple, no adenopathy, no thyromegaly, no JVD CVS/Heart: RRR, normal S1S2, pulses present bilaterally Chest/Lungs: CTA B, Symmetrical chest expansion, good air entry bilaterally GI/Abdomen: soft, NTND, good bowel sounds, no guarding or rebound /Bladder: no suprapubic tenderness, no CVA or paraspinal tenderness Extermity/Skin: top of right foot ulcer, pAD leg changes MSK: FROM x 4 Neuro: CN 2-12 grossly intact, no new focal deficits Psych: calm - Constitutional Vitals: Temp Pulse Resp BP Pulse Ox 98.7 F 82 16 116/58 97 11/25/18 10:45 11/25/18 13:45 11/25/18 10:45 11/25/18 13:45 11/25/18 07:16 General appearance: Present: no acute distress Results - Labs CBC & Chem 7: 11/25/18 05:07 11/22/18 04:18 Labs: Laboratory Last Values WBC 5.2 K/mm3 (4.5-11.0) 11/22/18 04:18 RBC 3.31 M/mm3 (3.65-5.03) L 11/22/18 04:18 Hgb 9.8 gm/dl (10.1-14.3) L 11/25/18 05:07 Hct 31.3 % (30.3-42.9) 11/25/18 05:07 MCV 83 fl (79-97) 11/22/18 04:18 MCH 27 pg (28-32) L 11/22/18 04:18 MCHC 32 % (30-34) 11/22/18 04:18 RDW 19.2 % (13.2-15.2) H 11/22/18 04:18 Plt Count 322 K/mm3 (140-440) 11/25/18 05:07 Lymph % (Auto) 10.4 % (13.4-35.0) L 11/20/18 23:30 [place] % (Auto) 8.1 % (0.0-7.3) H 11/20/18 23:30 Eos % (Auto) 3.3 % (0.0-4.3) 11/20/18 23:30 Baso % (Auto) 1.1 % (0.0-1.8) 11/20/18 23:30 Lymph # 0.8 K/mm3 (1.2-5.4) L 11/20/18 23:30 [place] # 0.6 K/mm3 (0.0-0.8) 11/20/18 23:30 Eos # 0.3 K/mm3 (0.0-0.4) 11/20/18 23:30 Baso # 0.1 K/mm3 (0.0-0.1) 11/20/18 23:30 Seg Neutrophils % 77.1 % (40.0-70.0) H 11/20/18 23:30 Seg Neutrophils # 6.0 K/mm3 (1.8-7.7) 11/20/18 23:30 PT 14.5 Sec. (12.2-14.9) 11/21/18 06:59 INR 1.16 (0.87-1.13) H 11/21/18 06:59 APTT 45.8 Sec. (24.2-36.6) H 11/21/18 06:59 Heparin Anti-Xa Level 0.22 U.I./ml (0.3-0.7) L 11/25/18 05:07 Sodium 139 mmol/L (137-145) 11/22/18 04:18 Potassium 3.9 mmol/L (3.6-5.0) 11/22/18 04:18 Chloride 99.8 mmol/L (98-107) 11/22/18 04:18 Carbon Dioxide 26 mmol/L (22-30) 11/22/18 04:18 17 mmol/L 11/22/18 04:18 BUN 22 mg/dL (7-17) H 11/22/18 04:18 3.6 mg/dL (0.7-1.2) H 11/22/18 04:18 Estimated GFR 15 ml/min 11/22/18 04:18 6 % 11/22/18 04:18 Glucose 148 mg/dL (65-100) H 11/22/18 04:18 POC Glucose 199 (70-105) H 11/25/18 07:10 Calcium 8.8 mg/dL (8.4-10.2) 11/22/18 04:18 0.20 mg/dL (0.1-1.2) 11/22/18 04:18 AST 21 units/L (5-40) 11/22/18 04:18 ALT 9 units/L (7-56) 11/22/18 04:18 96 units/L (35-129) 11/22/18 04:18 6.2 g/dL (6.3-8.2) L 11/22/18 04:18 3.3 g/dL (3.9-5) L 11/22/18 04:18 1.1 % 11/22/18 04:18 Hepatitis A IgM Ab Non-reactive (NonReactive) 11/21/18 16:28 Hep Bs Antigen Non-reactive (Negative) 11/21/18 16:28 Hep B Core IgM Ab Non-reactive (NonReactive) 11/21/18 16:28 Non-reactive (NonReactive) 11/21/18 16:28 Active Medications - Current Medications Current Medications: Generic Name Dose Route Start Last Admin Trade Name Freq PRN Reason Stop Dose Admin Acetaminophen 650 mg 11/21/18 06:16 Tylenol PO Q4H PRN Pain MILD(1-3)/Fever >100.5/PEREZ Albumin Human 25 gm 11/21/18 09:01 11/25/18 11:46 Alburx 25% (Albumin) IV 25 gm ANTOINETTE PRN Administration Hypotension Clonidine HCl 0.1 mg 11/21/18 06:41 Catapres PO TID PRN Blood Pressure Dextrose 50 ml 11/21/18 06:16 D50w (25gm) Syringe IV PRN PRN Hypoglycemia Diphenhydramine HCl 25 mg 11/21/18 23:26 11/23/18 21:07 Benadryl PO 25 mg Q6H PRN Administration Itching Epoetin Khurram 10,000 unit 11/21/18 09:01 11/23/18 11:30 Procrit IV 10,000 unit ANTOINETTE PRN Administration hemodialysis Heparin Sodium (Porcine) 2,000 unit 11/21/18 09:01 11/25/18 11:12 Heparin 10,000 Units/10 Ml IV 2,000 unit ANTOINETTE PRN Administration hemodialysis Hydromorphone HCl 1 mg 11/22/18 13:09 11/25/18 10:59 Dilaudid IV 1 mg Q4H PRN Administration Pain , Severe (7-10) Heparin Sodium/Sodium Chloride 25,000 unit in 500 mls @ 18 mls/hr 11/21/18 07:00 11/24/18 22:06 Heparin/ 0.45% Nacl-25,000 Unit/500 Ml IV 850 units/hr TITR CALIXTO 17 mls/hr Titration Protocol 900 UNITS/HR Sodium Chloride 100 mls @ 999 mls/hr 11/21/18 09:01 Nacl 0.9% IV ANTOINETTE PRN Hypotension Insulin Human Lispro 0 unit 11/21/18 07:30 11/25/18 08:56 Humalog SUB-Q 2 unit ACHS CALIXTO Administration Protocol Isosorbide Mononitrate 30 mg 11/21/18 10:00 11/25/18 08:56 Imdur PO 30 mg QDAY CALIXTO Administration Lisinopril 5 mg 11/21/18 10:00 11/24/18 13:25 Zestril PO 5 mg DAILY CALIXTO Administration Miscellaneous Medication 630 mg 11/21/18 08:00 Ferric Citrate PO TIDWM CALIXTO Mupirocin 1 applic 11/21/18 08:00 11/25/18 08:57 Bactroban 2% TP 1 applic TID CALIXTO Administration Naloxone HCl 0.1 mg 11/21/18 06:16 Narcan 0.4 Mg/1 Ml IV Q2MIN PRN Res Rate </= 8 or 02 SAT < 92% Ondansetron HCl 4 mg 11/21/18 06:16 11/23/18 00:48 Zofran IV 4 mg Q8H PRN Administration Nausea And Vomiting Oxycodone/Acetaminophen 1 tab 11/21/18 06:16 11/25/18 07:06 Percocet 5/325 PO 1 tab Q6H PRN Administration Pain, Moderate (4-6) Pantoprazole Sodium 40 mg 11/21/18 10:00 11/25/18 08:57 Protonix PO 40 mg BID CALIXTO Administration Sodium Chloride 10 ml 11/21/18 10:00 11/25/18 08:58 Sodium Chloride Flush Syringe 10 Ml IV 10 ml BID CALIXTO Administration Sodium Chloride 10 ml 11/21/18 06:16 Sodium Chloride Flush Syringe 10 Ml IV PRN PRN LINE FLUSH Nutrition/Malnutrition Assess - Dietary Evaluation Nutrition/Malnutrition Findings: Nutrition Notes Start: 11/22/18 17:49 Freq: Status: Active Protocol: Document 11/24/18 17:02 RM (Rec: 11/24/18 17:06 [email or web address]) Nutrition Notes Initial or Follow up Reassessment Current Diagnosis Diabetes,Hypertension Other Pertinent Diagnosis ESRD on HD (T/R/S), PVD, diabetic ulcer Current Diet Renal w/Nepro TID Labs/Tests Reviewed Pertinent Medications Reviewed Height 5 ft 2 in Weight 46.8 kg [place] Body Weight (kg) 50.00 BMI 18.8 Subjective/Other Information 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 Stated she has not had the chance to eat a meal or drink the Nepro today d/t procedure that was planned for today but was cancelled. Pt was starting to eat lunch at time of visit. No temporal or orbital wasting . Burn Absent Trauma Absent #2 Nutrition Diagnosis Underweight Diagnosis Progress(for reassessment Continues documentation) #1 Nutrition Diagnosis Inadequate oral intake Diagnosis Progress(for reassessment Continues documentation) Is patient on ventilator? No Is Patient Ambulatory and/or Out of Bed No REE-([facility]-confined to bed) 1135.656 Kcal/Kg value to use for calculation 31 Approximate Energy Requirements Using 1451 kcal/Kg Calculation Used for Recommendations Kcal/kg Additional Notes Protein Needs: 55-69g (1.2-1. 5g/kg) Fluid Needs: 1 ml/kcal Nutrition Intervention Change Diet Order: Continue current Add Supplement/Snack (indicate name/kcal Nepro Vanilla, Butter Pecan /protein ) BID Provides kCal: 1,275 Provides Protein (gm) 57 Goal #1 Meet at least 75% of calorie and protein needs via PO and ONS intakes Anticipated Discharge Needs: Renal diet Follow-Up By: 11/27/18 Additional Comments Follow for PO and ONS intakes
[2018-11-25] MEDS: PROCRIT IV PRN (14:46)
[2018-11-26] MEDS: HEPARIN/ 0.45% NACL-25,000 UNIT/500 ML 25,000 UNIT/500 ML BAG IV SCH (00:16)
[2018-11-26] MEDS: PERCOCET 5/325 PO PRN ×3 (05:36→23:07)
[2018-11-26] MEDS: BACTROBAN 2% TP SCH ×3 (09:19→20:45)
[2018-11-26] MEDS: HumaLOG SUB-Q SCH ×4 (09:19→22:04)
[2018-11-26] MEDS: TYLENOL PO PRN (09:20)
[2018-11-26] MEDS: IMDUR PO SCH (09:20)
[2018-11-26] MEDS: PROTONIX PO SCH ×2 (09:20→22:04)
[2018-11-26] MEDS: ZESTRIL PO SCH (09:20)
--- NOTE | 2018-11-26 09:39 | Progress Note ---
Subjective Principal diagnosis: PVD with nonhealing ulcer Interval history: Patient was seen today for follow-up, regarding multiple renal related issues Events of 24 hours were noted Huggins has been noted to be febrile She was dialyzed yesterday and is currently on Tuesday Patient denies any complaints of chest pain pressure or shortness of breath Interdisciplinary Notes were also reviewed from past 24 hours Vitals labs intake output medications: Reviewed Past medical history: Reviewed Allergies: Reviewed Social history: Reviewed Family history: Reviewed Physical examination Gen.: No acute distress HEENT: Mild pallor nor icterus no uremic order Neck: Supple without any mass or JVD Chest: Clear to auscultation anteriorly Heart: Regular rate and rhythm S1 and S2 heard Abdomen: Soft nontender no suprapubic fullness no masses no renal bruit Extremity: Edema , no peripheral cyanosis Skin: No petechial rashes dry skin Assessment and plan End-stage Renal disease: Continue with maintenance hemodialysis Tuesday Judicious ultrafiltration due to limb ischemia peripheral vascular disease as patient starts complaining of cramping during dialysis and pain she does not have much of fluid on. Discontinue Benadryl due to age it may cause delirium confusion and falls From dialysis perspective today patient's blood pressure is stable Patient has been noted to have a fever 100.6, we should obtain blood cultures she needs empiric antibiotic Etiology of fever could be due to nonhealing wound, Patient will need infectious disease consultation please obtain, I have ordered the blood culture Chronic PAD with severe pain limb ischemia, patient needs adequate pain management Right leg ulceration, peripheral arterial disease, Doppler negative for DVT History of GI bleed: Anemia and chronic kidney disease monitor and follow Avoid heparin with hemodialysis treatment for now I would suggest a dietitian evaluation Had a detailed discussion with patient about renal care plan, We'll continue to follow and make recommendation from renal standpoint Objective - Vital Signs Vital signs: Vital Signs - 12hr 11/25/18 11/25/18 11/26/18 22:00 22:53 03:05 Temperature 98.2 F Pulse Rate Respiratory 20 20 Rate Blood Pressure 156/54 Blood Pressure [Right] O2 Sat by Pulse 96 Oximetry 11/26/18 11/26/18 11/26/18 03:07 05:36 06:36 Temperature Pulse Rate 88 Respiratory 20 18 Rate Blood Pressure Blood Pressure [Right] O2 Sat by Pulse 97 Oximetry 11/26/18 11/26/18 11/26/18 07:49 07:55 08:22 Temperature 100.6 F H 100.6 F H Pulse Rate 94 H 70 95 H Respiratory 18 18 18 Rate Blood Pressure 143/49 Blood Pressure 143/49 [Right] O2 Sat by Pulse 98 84 98 Oximetry - Lab 11/25/18 05:07 11/22/18 04:18 Most recent lab results Calcium 8.8 mg/dL (8.4-10.2) 11/22/18 04:18 Medications & Allergies - Medications Allergies/Adverse Reactions: Allergies erythromycin base [Erythromycin Base] Allergy (Verified 10/26/18 18:04) Rash PATIENT ASK ME TO REMOVEDMED ON ALLERGY LIST. Home Medications: Home Medications Medication Instructions Recorded Confirmed Last Taken Type Ferric Citrate (Nf) [Auryxia] 630 mg PO TIDWM 09/05/18 11/21/18 11/18/18 History Pantoprazole [Protonix TAB] 40 mg PO BID #60 tablet 10/03/18 11/21/18 10/16/18 20:00 Rx ISOSORBIDE MONOnitrate [Imdur ER] 30 mg PO QDAY #30 tablet 10/04/18 11/21/18 Unknown Rx Lisinopril [Zestril TAB] 5 mg PO DAILY #30 tablet 10/04/18 11/21/18 Unknown Rx cloNIDine [Catapres] 0.1 mg PO TID PRN 10/17/18 11/21/18 Unknown History Mupirocin [Bactroban 2%] 1 applic TP TID #1 tube 10/29/18 11/21/18 Unknown Rx Active Medications: Generic Name Dose Route Start Last Admin Trade Name Freq PRN Reason Stop Dose Admin Acetaminophen 650 mg 11/21/18 06:16 11/26/18 09:20 Tylenol PO 650 mg Q4H PRN Administration Pain MILD(1-3)/Fever >100.5/PEREZ Albumin Human 25 gm 11/21/18 09:01 11/25/18 11:46 Alburx 25% (Albumin) IV 25 gm ANTOINETTE PRN Administration Hypotension Clonidine HCl 0.1 mg 11/21/18 06:41 Catapres PO TID PRN Blood Pressure Dextrose 50 ml 11/21/18 06:16 D50w (25gm) Syringe IV PRN PRN Hypoglycemia Diphenhydramine HCl 25 mg 11/21/18 23:26 11/23/18 21:07 Benadryl PO 25 mg Q6H PRN Administration Itching Epoetin Khurram 10,000 unit 11/21/18 09:01 11/25/18 14:46 Procrit IV 10,000 unit ANTOINETTE PRN Administration hemodialysis Heparin Sodium (Porcine) 2,000 unit 11/21/18 09:01 11/25/18 11:12 Heparin 10,000 Units/10 Ml IV 2,000 unit ANTOINETTE PRN Administration hemodialysis Hydromorphone HCl 1 mg 11/22/18 13:09 11/25/18 22:53 Dilaudid IV 1 mg Q4H PRN Administration Pain , Severe (7-10) Heparin Sodium/Sodium Chloride 25,000 unit in 500 mls @ 18 mls/hr 11/21/18 07:00 11/26/18 02:07 Heparin/ 0.45% Nacl-25,000 Unit/500 Ml IV 950 units/hr TITR CALIXTO 19 mls/hr Titration Protocol 900 UNITS/HR Sodium Chloride 100 mls @ 999 mls/hr 11/21/18 09:01 Nacl 0.9% IV ANTOINETTE PRN Hypotension Insulin Human Lispro 0 unit 11/21/18 07:30 11/26/18 09:19 Humalog SUB-Q 2 unit ACHS CALIXTO Administration Protocol Isosorbide Mononitrate 30 mg 11/21/18 10:00 11/26/18 09:20 Imdur PO 30 mg QDAY CALIXTO Administration Lisinopril 5 mg 11/21/18 10:00 11/26/18 09:20 Zestril PO 5 mg DAILY CALIXTO Administration Miscellaneous Medication 630 mg 11/21/18 08:00 Ferric Citrate PO TIDWM CALIXTO Mupirocin 1 applic 11/21/18 08:00 11/26/18 09:19 Bactroban 2% TP 1 applic TID CALIXTO Administration Naloxone HCl 0.1 mg 11/21/18 06:16 Narcan 0.4 Mg/1 Ml IV Q2MIN PRN Res Rate </= 8 or 02 SAT < 92% Ondansetron HCl 4 mg 11/21/18 06:16 11/23/18 00:48 Zofran IV 4 mg Q8H PRN Administration Nausea And Vomiting Oxycodone/Acetaminophen 1 tab 11/21/18 06:16 11/26/18 09:20 Percocet 5/325 PO 1 tab Q6H PRN Administration Pain, Moderate (4-6) Pantoprazole Sodium 40 mg 11/21/18 10:00 11/26/18 09:20 Protonix PO 40 mg BID CALIXTO Administration Sodium Chloride 10 ml 11/21/18 10:00 11/25/18 22:41 Sodium Chloride Flush Syringe 10 Ml IV 10 ml BID CALIXTO Administration Sodium Chloride 10 ml 11/21/18 06:16 Sodium Chloride Flush Syringe 10 Ml IV PRN PRN LINE FLUSH
[2018-11-26] MEDS: SODIUM CHLORIDE FLUSH SYRINGE 10 ML IV SCH ×2 (11:01→22:05)
--- NOTE | 2018-11-26 16:17 | Progress Note ---
Assessment and Plan Assessment and plan: Patient is a 68 yo AA woman with a history of HTN, ESRD on TTS, PVD, IDDM, GERD and AOCD who presented to [facility] ED with RLE rest pains. Acute Right leg limb ischemia s/p Aortogram Impression: 1) Aortogram and right lower extremity angiography demonstrating multifocal 80-90% stenosis within the proximal and mid SFA with complete occlusion of the mid to distal SFA and reconstitution of the popliteal artery and distal SFA through collaterals. There is single vessel runoff to the foot throughout peroneal artery. 2) Attempted revascularization from both an antegrade and pedal approach as described without success. 3) The patient will need to be rescheduled for revascularization procedure on her right leg with anesthesia from both an antegrade and popliteal artery approach. 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 Follow-up on current diagnosis RLE ischemia with pains. No overnight events reported to me. Patient denies any chest pain, shortness breath, nausea/vomiting or severe headaches. Imaging, nursing note, chart, labs and old chart reviewed. Discussed with patient. IV Dilaudid is helping with the right leg severe pains. She has bleeding from the mouth with poor oral health. Hospitalist Physical - Physical exam Narrative exam: Gen: thin cachetic chronically ill appearing and disable, NAD, Awake, Alert, Orientated, bmi 18.9 HEENT: NCAT, EOMI, PERRL, OP dried blood on lip, stimata of old bleeding gums Neck: supple, no adenopathy, no thyromegaly, no JVD CVS/Heart: RRR, normal S1S2, pulses present bilaterally Chest/Lungs: CTA B, Symmetrical chest expansion, good air entry bilaterally GI/Abdomen: soft, NTND, good bowel sounds, no guarding or rebound /Bladder: no suprapubic tenderness, no CVA or paraspinal tenderness Extermity/Skin: top of right foot ulcer, pAD leg changes MSK: FROM x 4 Neuro: CN 2-12 grossly intact, no new focal deficits Psych: calm - Constitutional Vitals: Temp Pulse Resp BP Pulse Ox 99.0 F 94 H 18 121/66 99 11/26/18 14:00 11/26/18 14:00 11/26/18 14:00 11/26/18 14:00 11/26/18 14:00 General appearance: Present: no acute distress Results - Labs CBC & Chem 7: 11/25/18 05:07 11/22/18 04:18 Labs: Laboratory Last Values WBC 5.2 K/mm3 (4.5-11.0) 11/22/18 04:18 RBC 3.31 M/mm3 (3.65-5.03) L 11/22/18 04:18 Hgb 9.8 gm/dl (10.1-14.3) L 11/25/18 05:07 Hct 31.3 % (30.3-42.9) 11/25/18 05:07 MCV 83 fl (79-97) 11/22/18 04:18 MCH 27 pg (28-32) L 11/22/18 04:18 MCHC 32 % (30-34) 11/22/18 04:18 RDW 19.2 % (13.2-15.2) H 11/22/18 04:18 Plt Count 322 K/mm3 (140-440) 11/25/18 05:07 Lymph % (Auto) 10.4 % (13.4-35.0) L 11/20/18 23:30 Charlton % (Auto) 8.1 % (0.0-7.3) H 11/20/18 23:30 Eos % (Auto) 3.3 % (0.0-4.3) 11/20/18 23:30 Baso % (Auto) 1.1 % (0.0-1.8) 11/20/18 23:30 Lymph # 0.8 K/mm3 (1.2-5.4) L 11/20/18 23:30 Charlton # 0.6 K/mm3 (0.0-0.8) 11/20/18 23:30 Eos # 0.3 K/mm3 (0.0-0.4) 11/20/18 23:30 Baso # 0.1 K/mm3 (0.0-0.1) 11/20/18 23:30 Seg Neutrophils % 77.1 % (40.0-70.0) H 11/20/18 23:30 Seg Neutrophils # 6.0 K/mm3 (1.8-7.7) 11/20/18 23:30 PT 14.5 Sec. (12.2-14.9) 11/21/18 06:59 INR 1.16 (0.87-1.13) H 11/21/18 06:59 APTT 45.8 Sec. (24.2-36.6) H 11/21/18 06:59 Heparin Anti-Xa Level 0.15 U.I./ml (0.3-0.7) L 11/26/18 08:37 Sodium 139 mmol/L (137-145) 11/22/18 04:18 Potassium 3.9 mmol/L (3.6-5.0) 11/22/18 04:18 Chloride 99.8 mmol/L (98-107) 11/22/18 04:18 Carbon Dioxide 26 mmol/L (22-30) 11/22/18 04:18 17 mmol/L 11/22/18 04:18 BUN 22 mg/dL (7-17) H 11/22/18 04:18 3.6 mg/dL (0.7-1.2) H 11/22/18 04:18 Estimated GFR 15 ml/min 11/22/18 04:18 6 % 11/22/18 04:18 Glucose 148 mg/dL (65-100) H 11/22/18 04:18 POC Glucose 77 (70-105) 11/26/18 11:42 Calcium 8.8 mg/dL (8.4-10.2) 11/22/18 04:18 0.20 mg/dL (0.1-1.2) 11/22/18 04:18 AST 21 units/L (5-40) 11/22/18 04:18 ALT 9 units/L (7-56) 11/22/18 04:18 96 units/L (35-129) 11/22/18 04:18 6.2 g/dL (6.3-8.2) L 11/22/18 04:18 3.3 g/dL (3.9-5) L 11/22/18 04:18 1.1 % 11/22/18 04:18 Hepatitis A IgM Ab Non-reactive (NonReactive) 11/21/18 16:28 Hep Bs Antigen Non-reactive (Negative) 11/21/18 16:28 Hep B Core IgM Ab Non-reactive (NonReactive) 11/21/18 16:28 Non-reactive (NonReactive) 11/21/18 16:28 Active Medications - Current Medications Current Medications: Generic Name Dose Route Start Last Admin Trade Name Freq PRN Reason Stop Dose Admin Acetaminophen 650 mg 11/21/18 06:16 11/26/18 09:20 Tylenol PO 650 mg Q4H PRN Administration Pain MILD(1-3)/Fever >100.5/PEREZ Albumin Human 25 gm 11/21/18 09:01 11/25/18 11:46 Alburx 25% (Albumin) IV 25 gm ANTOINETTE PRN Administration Hypotension Clonidine HCl 0.1 mg 11/21/18 06:41 Catapres PO TID PRN Blood Pressure Dextrose 50 ml 11/21/18 06:16 D50w (25gm) Syringe IV PRN PRN Hypoglycemia Epoetin Khurram 10,000 unit 11/21/18 09:01 11/25/18 14:46 Procrit IV 10,000 unit ANTOINETTE PRN Administration hemodialysis Heparin Sodium (Porcine) 2,000 unit 11/21/18 09:01 11/25/18 11:12 Heparin 10,000 Units/10 Ml IV 2,000 unit ANTOINETTE PRN Administration hemodialysis Hydromorphone HCl 1 mg 11/22/18 13:09 11/25/18 22:53 Dilaudid IV 1 mg Q4H PRN Administration Pain , Severe (7-10) Heparin Sodium/Sodium Chloride 25,000 unit in 500 mls @ 18 mls/hr 11/21/18 07:00 11/26/18 02:07 Heparin/ 0.45% Nacl-25,000 Unit/500 Ml IV 950 units/hr TITR CALIXTO 19 mls/hr Titration Protocol 900 UNITS/HR Sodium Chloride 100 mls @ 999 mls/hr 11/21/18 09:01 Nacl 0.9% IV ANTOINETTE PRN Hypotension Insulin Human Lispro 0 unit 11/21/18 07:30 11/26/18 12:02 Humalog SUB-Q Not Given ACHS [facility] Protocol Isosorbide Mononitrate 30 mg 11/21/18 10:00 11/26/18 09:20 Imdur PO 30 mg QDAY CALIXTO Administration Lisinopril 5 mg 11/21/18 10:00 11/26/18 09:20 Zestril PO 5 mg DAILY CALIXTO Administration Miscellaneous Medication 630 mg 11/21/18 08:00 Ferric Citrate PO TIDWM CALIXTO Mupirocin 1 applic 11/21/18 08:00 11/26/18 09:19 Bactroban 2% TP 1 applic TID CALIXTO Administration Naloxone HCl 0.1 mg 11/21/18 06:16 Narcan 0.4 Mg/1 Ml IV Q2MIN PRN Res Rate </= 8 or 02 SAT < 92% Ondansetron HCl 4 mg 11/21/18 06:16 11/23/18 00:48 Zofran IV 4 mg Q8H PRN Administration Nausea And Vomiting Oxycodone/Acetaminophen 1 tab 11/21/18 06:16 11/26/18 09:20 Percocet 5/325 PO 1 tab Q6H PRN Administration Pain, Moderate (4-6) Pantoprazole Sodium 40 mg 11/21/18 10:00 11/26/18 09:20 Protonix PO 40 mg BID CALIXTO Administration Sodium Chloride 10 ml 11/21/18 10:00 11/26/18 11:01 Sodium Chloride Flush Syringe 10 Ml IV Not Given BID CALIXTO Sodium Chloride 10 ml 11/21/18 06:16 Sodium Chloride Flush Syringe 10 Ml IV PRN PRN LINE FLUSH Nutrition/Malnutrition Assess - Dietary Evaluation Nutrition/Malnutrition Findings: Nutrition Notes Start: 11/22/18 17:49 Freq: Status: Active Protocol: Document 11/24/18 17:02 (Rec: 11/24/18 17:06 [id number]) Nutrition Notes Initial or Follow up Reassessment Current Diagnosis Diabetes,Hypertension Other Pertinent Diagnosis ESRD on HD (T/R/S), PVD, diabetic ulcer Current Diet Renal w/Nepro TID Labs/Tests Reviewed Pertinent Medications Reviewed Height 5 ft 2 in Weight 46.8 kg Orange Body Weight (kg) 50.00 BMI 18.8 Subjective/Other Information 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 Stated she has not had the chance to eat a meal or drink the Nepro today d/t procedure that was planned for today but was cancelled. Pt was starting to eat lunch at time of visit. No temporal or orbital wasting . Burn Absent Trauma Absent #2 Nutrition Diagnosis Underweight Diagnosis Progress(for reassessment Continues documentation) #1 Nutrition Diagnosis Inadequate oral intake Diagnosis Progress(for reassessment Continues documentation) Is patient on ventilator? No Is Patient Ambulatory and/or Out of Bed No REE-([facility]-confined to bed) 1135.656 Kcal/Kg value to use for calculation 31 Approximate Energy Requirements Using 1451 kcal/Kg Calculation Used for Recommendations Kcal/kg Additional Notes Protein Needs: 55-69g (1.2-1. 5g/kg) Fluid Needs: 1 ml/kcal Nutrition Intervention Change Diet Order: Continue current Add Supplement/Snack (indicate name/kcal Nepro Vanilla, Butter Pecan /protein ) BID Provides kCal: 1,275 Provides Protein (gm) 57 Goal #1 Meet at least 75% of calorie and protein needs via PO and ONS intakes Anticipated Discharge Needs: Renal diet Follow-Up By: 11/27/18 Additional Comments Follow for PO and ONS intakes
[2018-11-27] MEDS: HEPARIN/ 0.45% NACL-25,000 UNIT/500 ML 25,000 UNIT/500 ML BAG IV SCH (03:19)
[2018-11-27 05:33] LABS: Hematocrit 24.5 % (30.3-42.9); Hemoglobin 7.9 gm/dl (10.1-14.3); Mean Corpuscular HGB Conc 32 % (30-34); Mean Corpuscular Volume 81 fl (79-97); Platelet Count 256 K/mm3 (140-440); Red Blood Count 3.02 M/mm3 (3.65-5.03); Red Cell Distribution Width 19.3 % (13.2-15.2)
[2018-11-27 06:09] LABS: Calcium 9.4 mg/dL (8.4-10.2)
[2018-11-27] MEDS: HumaLOG SUB-Q SCH ×4 (08:09→22:06)
[2018-11-27] MEDS: BACTROBAN 2% TP SCH ×3 (08:55→21:46)
[2018-11-27] MEDS: PROTONIX PO SCH ×2 (09:18→21:40)
[2018-11-27] MEDS: ZESTRIL PO SCH (09:19)
[2018-11-27] MEDS: IMDUR PO SCH (09:20)
[2018-11-27] MEDS: SODIUM CHLORIDE FLUSH SYRINGE 10 ML IV SCH ×2 (09:21→21:41)
--- NOTE | 2018-11-27 11:22 | Progress Note ---
Assessment and Plan Impression: * End stage renal disease * Peripheral artery disease * Right leg ulceration * Hypertension * Type II DM * Hx of GI bleed --Colonoscopy: No gross lesions and no blood seen in the colon. Large internal and external hemorrhoids. Inadequate prep --EGD: Duodenum - nodularity biopsied to r/o adenoma. Severe duodenitis of the bulb. Deep cratered pre-pyloric clean based ulcer * Secondary hyperparathyroidism * Anemia secondary to ESRD Plan: * Continue outpatient TTS schedule * UF as tolerated * Heparin gtt per primary team/vascular surgery * Vascular surgery following * Epogen TIW prn * Continue antiHTN medications * Renal diet Subjective Date of service: 11/27/18 Principal diagnosis: PVD with nonhealing ulcer Interval history: resting well in bed today Objective - Exam Narrative Exam: General appearance: frail EENT: ATNC Respiratory: Present: Clear to Ascultation Cardiology: regular, S1S2 Gastrointestinal: normal, no tenderness, no distended Neurologic: alert and oriented x3 Psychiatric: cooperative - Vital Signs Vital signs: Vital Signs - 12hr 11/27/18 11/27/18 11/27/18 00:07 02:56 07:19 Temperature 98.3 F 98.5 F Pulse Rate 80 Respiratory 18 20 16 Rate Blood Pressure 150/56 144/49 O2 Sat by Pulse 98 Oximetry 11/27/18 11/27/18 11/27/18 09:19 09:20 10:00 Temperature Pulse Rate 81 81 Respiratory 16 Rate Blood Pressure 176/68 176/68 O2 Sat by Pulse 98 Oximetry - Lab 11/27/18 05:15 11/27/18 05:15 Most recent lab results Calcium 9.4 mg/dL (8.4-10.2) 11/27/18 05:15 Medications & Allergies - Medications Allergies/Adverse Reactions: Allergies erythromycin base [Erythromycin Base] Allergy (Verified 10/26/18 18:04) Rash PATIENT ASK ME TO REMOVEDMED ON ALLERGY LIST. Home Medications: Home Medications Medication Instructions Recorded Confirmed Last Taken Type Ferric Citrate (Nf) [Auryxia] 630 mg PO TIDWM 09/05/18 11/21/18 11/18/18 History Pantoprazole [Protonix TAB] 40 mg PO BID #60 tablet 10/03/18 11/21/18 10/16/18 20:00 Rx ISOSORBIDE MONOnitrate [Imdur ER] 30 mg PO QDAY #30 tablet 10/04/18 11/21/18 Unknown Rx Lisinopril [Zestril TAB] 5 mg PO DAILY #30 tablet 10/04/18 11/21/18 Unknown Rx cloNIDine [Catapres] 0.1 mg PO TID PRN 10/17/18 11/21/18 Unknown History Mupirocin [Bactroban 2%] 1 applic TP TID #1 tube 10/29/18 11/21/18 Unknown Rx Active Medications: Generic Name Dose Route Start Last Admin Trade Name Freq PRN Reason Stop Dose Admin Acetaminophen 650 mg 11/21/18 06:16 11/26/18 09:20 Tylenol PO 650 mg Q4H PRN Administration Pain MILD(1-3)/Fever >100.5/PEREZ Albumin Human 25 gm 11/21/18 09:01 11/25/18 11:46 Alburx 25% (Albumin) IV 25 gm ANTOINETTE PRN Administration Hypotension Clonidine HCl 0.1 mg 11/21/18 06:41 Catapres PO TID PRN Blood Pressure Dextrose 50 ml 11/21/18 06:16 D50w (25gm) Syringe IV PRN PRN Hypoglycemia Epoetin Khurram 10,000 unit 11/21/18 09:01 11/25/18 14:46 Procrit IV 10,000 unit ATNOINETTE PRN Administration hemodialysis Heparin Sodium (Porcine) 2,000 unit 11/21/18 09:01 11/25/18 11:12 Heparin 10,000 Units/10 Ml IV 2,000 unit ANTOINETTE PRN Administration hemodialysis Hydromorphone HCl 1 mg 11/22/18 13:09 11/25/18 22:53 Dilaudid IV 1 mg Q4H PRN Administration Pain , Severe (7-10) Heparin Sodium/Sodium Chloride 25,000 unit in 500 mls @ 18 mls/hr 11/21/18 07:00 11/27/18 06:38 Heparin/ 0.45% Nacl-25,000 Unit/500 Ml IV 1,100 units/hr TITR CALIXTO 22 mls/hr Titration Protocol 900 UNITS/HR Sodium Chloride 100 mls @ 999 mls/hr 11/21/18 09:01 Nacl 0.9% IV ANTOINETTE PRN Hypotension Insulin Human Lispro 0 unit 11/21/18 07:30 11/27/18 08:09 Humalog SUB-Q Not Given ACHS [facility] Protocol Isosorbide Mononitrate 30 mg 11/21/18 10:00 11/27/18 09:20 Imdur PO 30 mg QDAY CALIXTO Administration Lisinopril 5 mg 11/21/18 10:00 11/27/18 09:19 Zestril PO 5 mg DAILY CALIXTO Administration Miscellaneous Medication 630 mg 11/21/18 08:00 Ferric Citrate PO TIDWM [facility] Mupirocin 1 applic 11/21/18 08:00 11/27/18 08:55 Bactroban 2% TP 1 applic TID CALIXTO Administration Naloxone HCl 0.1 mg 11/21/18 06:16 Narcan 0.4 Mg/1 Ml IV Q2MIN PRN Res Rate </= 8 or 02 SAT < 92% Ondansetron HCl 4 mg 11/21/18 06:16 11/23/18 00:48 Zofran IV 4 mg Q8H PRN Administration Nausea And Vomiting Oxycodone/Acetaminophen 1 tab 11/21/18 06:16 11/26/18 23:07 Percocet 5/325 PO 1 tab Q6H PRN Administration Pain, Moderate (4-6) Pantoprazole Sodium 40 mg 11/21/18 10:00 11/27/18 09:18 Protonix PO 40 mg BID CALIXTO Administration Sodium Chloride 10 ml 11/21/18 10:00 11/27/18 09:21 Sodium Chloride Flush Syringe 10 Ml IV Not Given BID CALIXTO Sodium Chloride 10 ml 11/21/18 06:16 Sodium Chloride Flush Syringe 10 Ml IV PRN PRN LINE FLUSH
[2018-11-27] MEDS: PERCOCET 5/325 PO PRN (11:55)
[2018-11-27] MEDS ORDERED: VERSED ONE (13:22)
[2018-11-27] MEDS ORDERED: XYLOCAINE 2% INFILTRATI ONE (13:22)
[2018-11-27] MEDS ORDERED: HEPARIN 10,000 UNITS/10 ML ONE (13:22)
[2018-11-27] MEDS ORDERED: HEPARIN/NS 5000 UNIT/500ML(CATH LAB) 1,000 ML IR ONE (13:22)
[2018-11-27] MEDS ORDERED: SUBLIMAZE ONE ×2 (13:23→13:53)
[2018-11-27] MEDS ORDERED: DIPRIVAN 10 MG/ML IV ONE ×5 (13:53→13:54)
[2018-11-27] MEDS ORDERED: Vasostrict ONE (13:56)
[2018-11-27] MEDS ORDERED: NACL 0.9% 500 ML 500 ML ONE (14:03)
--- NOTE | 2018-11-27 14:20 | Progress Note ---
Assessment and Plan Assessment and plan: Patient is a 68 yo AA woman with a history of HTN, ESRD on TTS, PVD, IDDM, GERD and AOCD who presented to [facility] ED with RLE rest pains. Acute Right leg limb ischemia s/p Aortogram Impression: 1) Aortogram and right lower extremity angiography demonstrating multifocal 80-90% stenosis within the proximal and mid SFA with complete occlusion of the mid to distal SFA and reconstitution of the popliteal artery and distal SFA through collaterals. There is single vessel runoff to the foot throughout peroneal artery. 2) Attempted revascularization from both an antegrade and pedal approach as described without success. 3) The patient will need to be rescheduled for revascularization procedure on her right leg with anesthesia from both an antegrade and popliteal artery approach. Patient at high risk for amputation, continue IV Heparin drip with close monitoring and analgesic support via IV Dilaudid Diabetic foot nonhealing ulcer: treat with abx Decubitus ulcer at least stage 3, poa: consulted Wound care HTN: continue antihypertensives ESRD on Hemodialysis TTS: Nephrology is following, monitor bmp closely, renal diet Anemia of chronic disease: monitor cbc closely Malnutrition, poa: consulted Igniter Capper PAD- Prox Superficial Femoral Artery associated with critical limb ischemia, see above: Vascular Surgeon is managing Re-vascularization procedure of her right leg today, trying to relieve the rest pains, d/w Dr. Jones, he will address anticoagulation Fevers, follow up blood cultures taken History Interval history: Patient was seen and examined. Follow-up on current diagnosis RLE ischemia with pains. No overnight events reported to me. Patient denies any chest pain, shortness breath, nausea/vomiting or severe headaches. Imaging, nursing note, chart, labs and old chart reviewed. Discussed with patient. IV Dilaudid is helping with the right leg severe pains. She has bleeding from the mouth with poor oral health. Hospitalist Physical - Physical exam Narrative exam: Gen: thin cachetic chronically ill appearing and disable, NAD, Awake, Alert, Orientated, bmi 18.9 HEENT: NCAT, EOMI, PERRL, OP dried blood on lip, stimata of old bleeding gums Neck: supple, no adenopathy, no thyromegaly, no JVD CVS/Heart: RRR, normal S1S2, pulses present bilaterally Chest/Lungs: CTA B, Symmetrical chest expansion, good air entry bilaterally GI/Abdomen: soft, NTND, good bowel sounds, no guarding or rebound /Bladder: no suprapubic tenderness, no CVA or paraspinal tenderness Extermity/Skin: top of right foot ulcer, pAD leg changes MSK: FROM x 4 Neuro: CN 2-12 grossly intact, no new focal deficits Psych: calm - Constitutional Vitals: Temp Pulse Resp BP Pulse Ox 98.5 F 81 20 176/68 98 11/27/18 07:19 11/27/18 09:20 11/27/18 11:55 11/27/18 09:20 11/27/18 10:00 General appearance: Present: no acute distress Results - Labs CBC & Chem 7: 11/27/18 05:15 11/27/18 05:15 Labs: Laboratory Last Values WBC 7.3 K/mm3 (4.5-11.0) 11/27/18 05:15 RBC 3.02 M/mm3 (3.65-5.03) L 11/27/18 05:15 Hgb 7.9 gm/dl (10.1-14.3) L 11/27/18 05:15 Hct 24.5 % (30.3-42.9) L D 11/27/18 05:15 MCV 81 fl (79-97) 11/27/18 05:15 MCH 26 pg (28-32) L 11/27/18 05:15 MCHC 32 % (30-34) 11/27/18 05:15 RDW 19.3 % (13.2-15.2) H 11/27/18 05:15 Plt Count 256 K/mm3 (140-440) 11/27/18 05:15 Lymph % (Auto) 10.4 % (13.4-35.0) L 11/20/18 23:30 [place] % (Auto) 8.1 % (0.0-7.3) H 11/20/18 23:30 Eos % (Auto) 3.3 % (0.0-4.3) 11/20/18 23:30 Baso % (Auto) 1.1 % (0.0-1.8) 11/20/18 23:30 Lymph # 0.8 K/mm3 (1.2-5.4) L 11/20/18 23:30 [place] # 0.6 K/mm3 (0.0-0.8) 11/20/18 23:30 Eos # 0.3 K/mm3 (0.0-0.4) 11/20/18 23:30 Baso # 0.1 K/mm3 (0.0-0.1) 11/20/18 23:30 Seg Neutrophils % 77.1 % (40.0-70.0) H 11/20/18 23:30 Seg Neutrophils # 6.0 K/mm3 (1.8-7.7) 11/20/18 23:30 PT 14.5 Sec. (12.2-14.9) 11/21/18 06:59 INR 1.16 (0.87-1.13) H 11/21/18 06:59 APTT 45.8 Sec. (24.2-36.6) H 11/21/18 06:59 Heparin Anti-Xa Level 0.27 U.I./ml (0.3-0.7) L 11/27/18 05:15 Sodium 135 mmol/L (137-145) L 11/27/18 05:15 Potassium 3.1 mmol/L (3.6-5.0) L 11/27/18 05:15 Chloride 94.8 mmol/L (98-107) L 11/27/18 05:15 Carbon Dioxide 27 mmol/L (22-30) 11/27/18 05:15 16 mmol/L 11/27/18 05:15 BUN 30 mg/dL (7-17) H 11/27/18 05:15 5.1 mg/dL (0.7-1.2) H 11/27/18 05:15 Estimated GFR 10 ml/min 11/27/18 05:15 6 % 11/27/18 05:15 Glucose 152 mg/dL (65-100) H 11/27/18 05:15 POC Glucose 151 (70-105) H 11/27/18 11:33 Calcium 9.4 mg/dL (8.4-10.2) 11/27/18 05:15 0.20 mg/dL (0.1-1.2) 11/22/18 04:18 AST 21 units/L (5-40) 11/22/18 04:18 ALT 9 units/L (7-56) 11/22/18 04:18 96 units/L (35-129) 11/22/18 04:18 6.2 g/dL (6.3-8.2) L 11/22/18 04:18 3.3 g/dL (3.9-5) L 11/22/18 04:18 1.1 % 11/22/18 04:18 Hepatitis A IgM Ab Non-reactive (NonReactive) 11/21/18 16:28 Hep Bs Antigen Non-reactive (Negative) 11/21/18 16:28 Hep B Core IgM Ab Non-reactive (NonReactive) 11/21/18 16:28 Non-reactive (NonReactive) 11/21/18 16:28 Blood Type O POSITIVE 11/27/18 10:14 Antibody Screen Negative 11/27/18 10:14 Active Medications - Current Medications Current Medications: Generic Name Dose Route Start Last Admin Trade Name Freq PRN Reason Stop Dose Admin Acetaminophen 650 mg 11/21/18 06:16 11/26/18 09:20 Tylenol PO 650 mg Q4H PRN Administration Pain MILD(1-3)/Fever >100.5/PEREZ Albumin Human 25 gm 11/21/18 09:01 11/25/18 11:46 Alburx 25% (Albumin) IV 25 gm ANTOINETTE PRN Administration Hypotension Clonidine HCl 0.1 mg 11/21/18 06:41 Catapres PO TID PRN Blood Pressure Dextrose 50 ml 11/21/18 06:16 D50w (25gm) Syringe IV PRN PRN Hypoglycemia Epoetin Khurram 10,000 unit 11/21/18 09:01 11/25/18 14:46 Procrit IV 10,000 unit ANTOINETTE PRN Administration hemodialysis Heparin Sodium (Porcine) 2,000 unit 11/21/18 09:01 11/25/18 11:12 Heparin 10,000 Units/10 Ml IV 2,000 unit ANTOINETTE PRN Administration hemodialysis Hydromorphone HCl 1 mg 11/22/18 13:09 11/25/18 22:53 Dilaudid IV 1 mg Q4H PRN Administration Pain , Severe (7-10) Heparin Sodium/Sodium Chloride 25,000 unit in 500 mls @ 18 mls/hr 11/21/18 07:00 11/27/18 06:38 Heparin/ 0.45% Nacl-25,000 Unit/500 Ml IV 1,100 units/hr TITR CALIXTO 22 mls/hr Titration Protocol 900 UNITS/HR Sodium Chloride 100 mls @ 999 mls/hr 11/21/18 09:01 Nacl 0.9% IV ANTOINETTE PRN Hypotension Insulin Human Lispro 0 unit 11/21/18 07:30 11/27/18 11:50 Humalog SUB-Q Not Given ACHS [facility] Protocol Isosorbide Mononitrate 30 mg 11/21/18 10:00 11/27/18 09:20 Imdur PO 30 mg QDAY CALIXTO Administration Lisinopril 5 mg 11/21/18 10:00 11/27/18 09:19 Zestril PO 5 mg DAILY CALIXTO Administration Miscellaneous Medication 630 mg 11/21/18 08:00 Ferric Citrate PO TIDWM [facility] Mupirocin 1 applic 11/21/18 08:00 11/27/18 08:55 Bactroban 2% TP 1 applic TID CALIXTO Administration Naloxone HCl 0.1 mg 11/21/18 06:16 Narcan 0.4 Mg/1 Ml IV Q2MIN PRN Res Rate </= 8 or 02 SAT < 92% Ondansetron HCl 4 mg 11/21/18 06:16 11/23/18 00:48 Zofran IV 4 mg Q8H PRN Administration Nausea And Vomiting Oxycodone/Acetaminophen 1 tab 11/21/18 06:16 11/27/18 11:55 Percocet 5/325 PO 1 tab Q6H PRN Administration Pain, Moderate (4-6) Pantoprazole Sodium 40 mg 11/21/18 10:00 11/27/18 09:18 Protonix PO 40 mg BID CALIXTO Administration Sodium Chloride 10 ml 11/21/18 10:00 11/27/18 09:21 Sodium Chloride Flush Syringe 10 Ml IV Not Given BID CALIXTO Sodium Chloride 10 ml 11/21/18 06:16 Sodium Chloride Flush Syringe 10 Ml IV PRN PRN LINE FLUSH Nutrition/Malnutrition Assess - Dietary Evaluation Nutrition/Malnutrition Findings: Nutrition Notes Start: 11/22/18 17:49 Freq: Status: Active Protocol: Document 11/24/18 17:02 (Rec: 11/24/18 17:06 [email or web address]) Nutrition Notes Initial or Follow up Reassessment Current Diagnosis Diabetes,Hypertension Other Pertinent Diagnosis ESRD on HD (T/R/S), PVD, diabetic ulcer Current Diet Renal w/Nepro TID Labs/Tests Reviewed Pertinent Medications Reviewed Height 5 ft 2 in Weight 46.8 kg [place] Body Weight (kg) 50.00 BMI 18.8 Subjective/Other Information Pt stated that [employer] her appetite was good and that she ate 3 meals daily. Stated she has not had the chance to eat a meal or drink the Nepro today d/t procedure that was planned for today but was cancelled. Pt was starting to eat lunch at time of visit. No temporal or orbital wasting . Burn Absent Trauma Absent #2 Nutrition Diagnosis Underweight Diagnosis Progress(for reassessment Continues documentation) #1 Nutrition Diagnosis Inadequate oral intake Diagnosis Progress(for reassessment Continues documentation) Is patient on ventilator? No Is Patient Ambulatory and/or Out of Bed No REE-([facility]-confined to bed) 1135.656 Kcal/Kg value to use for calculation 31 Approximate Energy Requirements Using 1451 kcal/Kg Calculation Used for Recommendations Kcal/kg Additional Notes Protein Needs: 55-69g (1.2-1. 5g/kg) Fluid Needs: 1 ml/kcal Nutrition Intervention Change Diet Order: Continue current Add Supplement/Snack (indicate name/kcal Nepro Vanilla, Butter Pecan /protein ) BID Provides kCal: 1,275 Provides Protein (gm) 57 Goal #1 Meet at least 75% of calorie and protein needs via PO and ONS intakes Anticipated Discharge Needs: Renal diet Follow-Up By: 11/27/18 Additional Comments Follow for PO and ONS intakes
--- NOTE | 2018-11-27 16:34 | Anesthesia Consultation ---
Anesthesia Consult and Med Hx Date of service: 11/27/18 - Airway Anesthetic Teeth Evaluation: Partials (reports possible loose bottom incisors) ROM Head & Neck: Inadequate (restricted extension) Mental/Hyoid Distance: Adequate Mallampati Class: Class II Intubation Access Assessment: Probably Good - Pulmonary Exam CTA: Yes - Cardiac Exam Cardiac Exam: RRR - Pre-Operative Health Status ASA Pre-Surgery Classification: ASA4 Proposed Anesthetic Plan: MAC - Pulmonary Hx Smoking: No SOB: Yes (1 pillow orthopnea for many years) - Cardiovascular System Hx Hypertension: Yes Hx Heart Attack/AMI: No Hx Percutaneous Transluminal Coronary Angioplasty (PTCA): No Hx Pacemaker: No Hx Internal Defibrillator: No Hx Valvular Heart Disease: Yes (moderate /MS on 07/2017 TTE) Hx Peripheral Vascular Disease: Yes - Central Nervous System Hx Seizures: No CVA: No - Gastrointestinal Hx Ulcer: Yes (PUD/ GI bleed 05/2014) Hx Gastroesophageal Reflux Disease: Yes (Mild) - Endocrine Hx End Stage Renal Disease: Yes (last HD 11/25/18) Hx Liver Disease: No Hx Insulin Dependent Diabetes: Yes Hx Thyroid Disease: No - Hematic Hx Anemia: Yes Hx Sickle Cell Disease: No - Other Systems Hx Alcohol Use: No Hx Obesity: No - Additional Comments Anesthesia Medical History Comments: No hx anesthetic complications.
--- NOTE | 2018-11-27 16:34 | Anesthesia Day of Surgery ---
Anesthesia Day of Surgery - Day of Surgery Patient Examined: Yes Patient H&P Reviewed: Yes Patient is NPO: Yes
[2018-11-27] MEDS ORDERED: NEO-SYNEPHRINE ONE (17:00)
[2018-11-27] MEDS ORDERED: PLAVIX PO ONE (17:09)
--- NOTE | 2018-11-27 17:16 | Post Operative Note ---
Date of procedure: 11/27/18 Pre-op diagnosis: ESRD with CLI of the right lower extremity Post-op diagnosis: same Procedure: 1. Ultrasound guided access of the left common femoral artery 2. Angiography of the left lower extremity 3. Selection of the abdominal aorta with angiography 4. Selection of the right external iliac artery, superficial femoral artery and angiography 5. Ultrasound guided access of the right superficial femoral artery x 2 6. Fluoroscopic guided placement of a 6 mm spider EPD in the right popliteal artery 7. Angioplasty of the right popliteal artery, and superficial femoral artery with a 6 mm x 220 mm angioplasty balloon 8. Drug coated angioplasty with 6 mm x 150 mm of the right proximal to mid superficial femoral artery 9. Stenting of the right mid superficial femoral artery with a 7 mm x 60 mm Everflex stent 10. Angioplasty of the right mid superficial femoral artery stent with a 6 mm x 40 mm elias angioplasty balloon x 2 (rupture), 6 mm x 40 mm [place] balloon (rupture), 6 mm x 40 mm Conquest, and 6 mm x 40 mm Shockwave device 11. Angioplasty of the tibioperoneal trunk with a 4 mm x 40 mm angioplasty balloon 12. Closure of the left common femoral artery with a 6 Fr proglide Anesthesia: local (w/ conscious sedation) Surgeon: CHERY BURGER Estimated blood loss: minimal Condition: stable Disposition: floor
--- NOTE | 2018-11-27 17:19 | Operative Report ---
Operative Report Operative Report: EXAM: 1. Ultrasound guided access of the left common femoral artery 2. Angiography of the left lower extremity 3. Selection of the abdominal aorta with angiography 4. Selection of the right external iliac artery, superficial femoral artery and angiography 5. Ultrasound guided access of the right superficial femoral artery x 2 6. Fluoroscopic guided placement of a 6 mm spider EPD in the right popliteal artery 7. Angioplasty of the right popliteal artery, and superficial femoral artery with a 6 mm x 220 mm angioplasty balloon 8. Drug coated angioplasty with 6 mm x 150 mm of the right proximal to mid superficial femoral artery 9. Stenting of the right mid superficial femoral artery with a 7 mm x 60 mm Ev erflex stent 10. Angioplasty of the right mid superficial femoral artery stent with a 6 mm x 40 mm elias angioplasty balloon x 2 (rupture), 6 mm x 40 mm [place] balloon (rupture), 6 mm x 40 mm Conquest, and 6 mm x 40 mm Shockwave device 11. Angioplasty of the tibioperoneal trunk with a 2.5 mm and 4 mm x 40 mm angioplasty balloon 12. Closure of the left common femoral artery with a 6 Fr proglide DATE: 11/27/18 LITIGATION ATTORNEY: CHERY BURGER MD INDICATION: Critical limb ischemia of the right lower extremity with rest pain and gangrene. MEDICATIONS: Please see nursing report for full details. DEVICES: 7 mm x 60 mm Everflex stent 6 mm x 40 mm elias balloon x 2 6 mm x 80 mm elias balloon 6 mm x 220 mm elias balloon 6 mm x 150 mm iNPACT DCB 6 mm x 40 mm [place] 6 mm x 40 mm Conquest 6 mm x 40 mm Shockwave 6 mm spider EPD 2.5 mm angioplasty balloon 4 mm angioplasty balloon CONTRAST: Please see lab asst report for details. ANESTHESIA: MAC PROCEDURE: The risks, benefits, and alternatives were discussed with the patient; written informed consent was obtained. Patient was brought to the angiography suite and the groins were prepped and draped in a sterile fashion. The right leg was then prepped and draped in a sterile fashion. Ultrasound is used to evaluate the left common femoral artery which was patent. The lower portion of the artery had a small hematoma from prior procedure. The midportion of the artery was selected for access. Under direct ultrasound guidance, the mid left common femoral artery was accessed with a 21-gauge micropuncture needle. 0.018 inch wire was passed into the artery. Needle was exchanged for transitional dilator. Wire was exchanged for a 0.035 inch wire. Transitional dilators exchange for 5 [place] sheath. Digital subtraction angiography was performed demonstrating patency of the left common femoral artery, performed the femoral artery, and a 50% stenosis of the proximal left superficial femoral artery. The puncture was appropriate, above the bifurcation and below the inferior epigastric artery. Omni flush catheter was advanced over the wire and use to select the abdominal aorta. Digital subtraction angiography was performed of ensuring patency of the infrarenal abdominal aorta, bilateral common iliac arteries, bilateral external iliac arteries, and bilateral internal iliac. The right external iliac artery was selected and digital subtraction angiography was formed demonstrating patency of the right common femoral artery, profundofemoral artery, and tandem 95% and 90% narrowings in the proximal right superficial femoral artery. There was short segment occlusion of the right mid superficial femoral artery. Digital subtraction angiography was repeated demonstrating reconstitution at the mid superficial femoral artery after the occlusion which also had multifocal areas of 60% narrowing. The distal superficial femoral artery had a 70% area of narrowing. This extended into the above the knee popliteal artery. The mid and distal popliteal artery were patent. The anterior tibial artery was occluded approximately 5 cm after takeoff. The tibioperoneal trunk had a 90% narrowing. The peroneal artery was the dominant fluid of the foot and provided flow through the anterior and posterior communicating arteries into the foot, for predominantly through the posterior communicating artery. The posterior tibial artery was severely narrowed throughout its entirety of its course with some short segment occlusions. The posterior tibial artery reconstituted at the ankle from the posterior communicating artery. The patient was heparinized. Sheath was exchanged for a 7 [place] 45 cm [place] destination used to select the right common femoral artery. I then selected the superficial femoral artery and attempted to cross the occlusion using a [place] and V18 wires but was unsuccessful. After multiple attempts, I found myself in the subintimal space and not able to repuncture back in. I then decid ed to obtain retrograde right superficial femoral artery access. The right superficial femoral artery was. Under direct ultrasound guidance, superficial femoral artery was accessed with a 21-gauge micropuncture needle. 0.018 inch wire was passed and the needle. I then passed the inner portion of the transitional dilator over the wire and exchange the wire for multiple V 18s. The 18s would not pass through the occlusion. I decided to puncture a lower portion of the superficial femoral artery in order to obtain more distance to possibly place a sheath. Under direct ultrasound guidance, the distal superficial femoral artery was accessed with a 21-gauge micropuncture needle. 0.018 inch wire was passed into the artery. Needle was exchanged for transitional dilator. There is a transiti onal dilator, I attempted to cross the occlusion with a V 18 but this was unsuccessful. I then exchanged for a Glidewire advantage and was able to cross the occlusion. I then snared the Glidewire through the 7 [place] sheath and obtains through and through access. I then used a [place] to cross back across the occlusion and then retracted the wire and passed the Glidewire into the popliteal artery and subsequently performed digital subtraction angiography to confirm my position. I then deployed a 6 mm spider embolic protection device. 6 mm x 220 mm elias angioplasty balloon was then advanced over the wire and used to perform angioplasty of the popliteal artery, and distal to mid superficial femoral artery. This was also used to balloon tamponade the two superficial femoral artery access sites which were removed during balloon inflation. 5 minutes of inflation was allowed and then the balloon was retracted and repeat angioplasty was performed partially over the 2 access sites and partially in the mid superficial femoral artery. Five-minute inflation was allowed. Then the proximal superficial femoral artery was treated. Digital subtraction angiography was performed demonstrating less than 10% residual narrowing of the proximal superficial femoral artery, mid superficial femoral artery, and distal superficial femoral artery as well as the popliteal artery except for a focal area of dissection which was previously the short segment occlusion. I then deployed a 7 mm x 60 mm self-expanding stent across the occlusion. This was post dilated with a 6 mm x 80 mm angioplasty balloon but the center portion did not completely expand. I tried to advance a drug-coated angioplasty balloon across the stent but would not pass and then decided to treat the proximal superficial femoral artery with a drug-coated balloon. Then I used a 6 mm x 40 mm angioplasty balloon at burst pressure to attempt to expand the midportion of the stent but this resulted in balloon rupture. 6 mm x 40 mm [place] was then used at burst pressure to attempt to expand the midportion of the stent, but this resulted in balloon rupture again. I used another 6 mm x 40 mm elias at burst pressure to attempt to expand the midportion of the stent but this resulted in balloon rupture again. I attempted to pass a [place] balloon over the wire but this became hung up at the midportion of the stent. I then captured my spider embolic protection device and passed a Glidewire into the popliteal artery. The conquest balloon was advanced over the wire to the midportion of the stent but after inflation, there is immediate recoil. I then exchanged the wire for a 0.014 inch wire and advanced a 6 mm shockwave device over the wire to the central portion of the stent. Shockwave was performed achieving 30% residual narrowing from initially 80% narrowing at the midportion of the stent. I attempted to pass the shockwave into the tibioperoneal trunk but would not pass and therefore I advanced a 2.5 mm angioplasty balloon to the tibioperoneal trunk and predilated the lesion. The shockwave device again would not pass and therefore I decided to use a 4 mm angioplasty balloon in the tibioperoneal trunk and perform balloon angioplasty. Digital subtraction angiography demonstrated less than 10% residual narrowing of this lesion. Digital subtraction angiography was repeated demonstrating patency of the superficial femoral artery, focal 30% residual narrowing of the stent, patency of the mid and distal superficial femoral artery and popliteal artery and patency of the tibioperoneal trunk with single-vessel runoff to the peroneal artery and unchanged appearance of the posterior tibial and anterior tibial artery. At this point, all wires, catheters, and sheaths were retracted to the left external iliac artery and the sheath was exchanged for 6 [place] Pro-glide which was used to achieve immediate hemostasis. Sterile dressing and compressive dressing applied. FINDINGS: Please see procedure note above. IMPRESSION: 1. Successful angioplasty and stenting of the right superficial femoral artery. 2. Successful angioplasty of the right tibioperoneal trunk.
[2018-11-27] MEDS ORDERED: PLAVIX ONE (17:55)
[2018-11-27] MEDS: TYLENOL PO PRN (21:49)
[2018-11-28 04:29] LABS: Hematocrit 24.7 % (30.3-42.9); Hemoglobin 7.9 gm/dl (10.1-14.3); Mean Corpuscular HGB Conc 32 % (30-34); Mean Corpuscular Volume 80 fl (79-97); Platelet Count 259 K/mm3 (140-440); Red Blood Count 3.07 M/mm3 (3.65-5.03); Red Cell Distribution Width 19.8 % (13.2-15.2)
[2018-11-28 04:47] LABS: Calcium 9.5 mg/dL (8.4-10.2)
[2018-11-28] MEDS: HumaLOG SUB-Q SCH ×4 (08:21→21:55)
[2018-11-28] MEDS: BACTROBAN 2% TP SCH ×3 (08:22→21:54)
[2018-11-28] MEDS: PERCOCET 5/325 PO PRN (09:04)
[2018-11-28] MEDS: PROTONIX PO SCH ×2 (09:04→21:54)
[2018-11-28] MEDS: PLAVIX PO SCH (09:04)
[2018-11-28] MEDS: SODIUM CHLORIDE FLUSH SYRINGE 10 ML IV SCH ×2 (09:05→21:55)
--- NOTE | 2018-11-28 09:25 | Progress Note ---
Assessment and Plan Impression: * End stage renal disease * Peripheral artery disease * Right leg ulceration * Hypertension * Type II DM * Hx of GI bleed --Colonoscopy: No gross lesions and no blood seen in the colon. Large internal and external hemorrhoids. Inadequate prep --EGD: Duodenum - nodularity biopsied to r/o adenoma. Severe duodenitis of the bulb. Deep cratered pre-pyloric clean based ulcer * Secondary hyperparathyroidism * Anemia secondary to ESRD Plan: * Continue outpatient TTS schedule * UF as tolerated * Heparin gtt per primary team/vascular surgery * Vascular surgery following * Epogen TIW prn * Continue antiHTN medications * Renal diet Subjective Date of service: 11/28/18 Principal diagnosis: PVD with nonhealing ulcer Interval history: Patient is awake and alert. Appears comfortable. Denies any shortness of breath. No nausea or vomiting. Objective - Vital Signs Vital signs: Vital Signs - 12hr 11/27/18 11/27/18 11/28/18 22:00 23:01 00:20 Temperature 97.7 F 32.1 F L Pulse Rate 83 93 H Respiratory 12 14 16 Rate Blood Pressure 137/46 142/46 O2 Sat by Pulse 100 100 100 Oximetry 11/28/18 11/28/18 11/28/18 00:21 00:30 02:27 Temperature 98.5 F 99.3 F Pulse Rate 89 86 Respiratory 14 Rate Blood Pressure 151/43 O2 Sat by Pulse 100 96 Oximetry 11/28/18 11/28/18 07:44 09:04 Temperature 99.1 F Pulse Rate 86 Respiratory 18 20 Rate Blood Pressure 153/49 O2 Sat by Pulse 97 Oximetry - General Appearance General appearance: chronically ill, frail, other (pleasant -[place] female) EENT: PERRL, mucous membranes moist Neck: no JVD, no thyromegaly, no carotid bruit, supple Respiratory: Present: Clear to Ascultation Cardiology: regular, normal heart rate, S1S2, no murmurs Gastrointestinal: normal, normoactive bowel sounds Integumentary: other (AV fistula in her left upper arm. Good bruit and thrill. Left arm is swollen. Ulceration noted in the dorsum of her right foot. Wrinkling of skin noted in both her lower extremities) - Lab 11/28/18 04:03 11/28/18 04:03 Most recent lab results Calcium 9.5 mg/dL (8.4-10.2) 11/28/18 04:03 Medications & Allergies - Medications Allergies/Adverse Reactions: Allergies erythromycin base [Erythromycin Base] Allergy (Verified 10/26/18 18:04) Rash PATIENT ASK ME TO REMOVEDMED ON ALLERGY LIST. Home Medications: Home Medications Medication Instructions Recorded Confirmed Last Taken Type Ferric Citrate (Nf) [Auryxia] 630 mg PO TIDWM 09/05/18 11/21/18 11/18/18 History Pantoprazole [Protonix TAB] 40 mg PO BID #60 tablet 10/03/18 11/21/18 10/16/18 20:00 Rx ISOSORBIDE MONOnitrate [Imdur ER] 30 mg PO QDAY #30 tablet 10/04/18 11/21/18 Unknown Rx Lisinopril [Zestril TAB] 5 mg PO DAILY #30 tablet 10/04/18 11/21/18 Unknown Rx cloNIDine [Catapres] 0.1 mg PO TID PRN 10/17/18 11/21/18 Unknown History Mupirocin [Bactroban 2%] 1 applic TP TID #1 tube 10/29/18 11/21/18 Unknown Rx Active Medications: Generic Name Dose Route Start Last Admin Trade Name Freq PRN Reason Stop Dose Admin Acetaminophen 650 mg 11/21/18 06:16 11/27/18 21:49 Tylenol PO 650 mg Q4H PRN Administration Pain MILD(1-3)/Fever >100.5/PEREZ Albumin Human 25 gm 11/21/18 09:01 11/25/18 11:46 Alburx 25% (Albumin) IV 25 gm ANTOINETTE PRN Administration Hypotension Clonidine HCl 0.1 mg 11/21/18 06:41 Catapres PO TID PRN Blood Pressure Clopidogrel Bisulfate 75 mg 11/28/18 10:00 11/28/18 09:04 Plavix PO 75 mg QDAY CALIXTO Administration Dextrose 50 ml 11/21/18 06:16 D50w (25gm) Syringe IV PRN PRN Hypoglycemia Epoetin Khurram 10,000 unit 11/21/18 09:01 11/25/18 14:46 Procrit IV 10,000 unit ANTOINETTE PRN Administration hemodialysis Heparin Sodium (Porcine) 2,000 unit 11/21/18 09:01 11/25/18 11:12 Heparin 10,000 Units/10 Ml IV 2,000 unit ANTOINETTE PRN Administration hemodialysis Hydromorphone HCl 1 mg 11/22/18 13:09 11/25/18 22:53 Dilaudid IV 1 mg Q4H PRN Administration Pain , Severe (7-10) Sodium Chloride 100 mls @ 999 mls/hr 11/21/18 09:01 Nacl 0.9% IV ANTOINETTE PRN Hypotension Insulin Human Lispro 0 unit 11/21/18 07:30 11/28/18 08:21 Humalog SUB-Q 2 unit ACHS CALIXTO Administration Protocol Isosorbide Mononitrate 30 mg 11/21/18 10:00 11/27/18 09:20 Imdur PO 30 mg QDAY CALIXTO Administration Lisinopril 5 mg 11/21/18 10:00 11/27/18 09:19 Zestril PO 5 mg DAILY CALIXTO Administration Miscellaneous Medication 630 mg 11/21/18 08:00 Ferric Citrate PO TIDWM CALIXTO Mupirocin 1 applic 11/21/18 08:00 11/28/18 08:22 Bactroban 2% TP 1 applic TID CALIXTO Administration Naloxone HCl 0.1 mg 11/21/18 06:16 Narcan 0.4 Mg/1 Ml IV Q2MIN PRN Res Rate </= 8 or 02 SAT < 92% Ondansetron HCl 4 mg 11/21/18 06:16 11/23/18 00:48 Zofran IV 4 mg Q8H PRN Administration Nausea And Vomiting Oxycodone/Acetaminophen 1 tab 11/21/18 06:16 11/28/18 09:04 Percocet 5/325 PO 1 tab Q6H PRN Administration Pain, Moderate (4-6) Pantoprazole Sodium 40 mg 11/21/18 10:00 11/28/18 09:04 Protonix PO 40 mg BID CALIXTO Administration Sodium Chloride 10 ml 11/21/18 10:00 11/28/18 09:05 Sodium Chloride Flush Syringe 10 Ml IV 10 ml BID CALIXTO Administration Sodium Chloride 10 ml 11/21/18 06:16 Sodium Chloride Flush Syringe 10 Ml IV PRN PRN LINE FLUSH
--- NOTE | 2018-11-28 09:51 | Progress Note ---
Assessment and Plan Assessment and plan: Patient is a 68 yo AA woman with a history of HTN, ESRD on TTS, PVD, IDDM, GERD and AOCD who presented to [facility] ED with RLE rest pains. Acute Right leg limb ischemia s/p Aortogram Impression: 1) Aortogram and right lower extremity angiography demonstrating multifocal 80-90% stenosis within the proximal and mid SFA with complete occlusion of the mid to distal SFA and reconstitution of the popliteal artery and distal SFA through collaterals. There is single vessel runoff to the foot throughout peroneal artery. 2) Attempted revascularization from both an antegrade and pedal approach as described without success. 3) The patient will need to be rescheduled for revascularization procedure on her right leg with anesthesia from both an antegrade and popliteal artery approach. Patient at high risk for amputation, continue IV Heparin drip with close monitoring and analgesic support via IV Dilaudid. Patient underwent revascularization with noted warmth to the right lower extremity for revascularization. Some gangrene is still noted around her ankle area with mild erythema. No further complaints of pain at this time. Heparin drip has been discontinued. She is now on Plavix. Extensive discussion was had with the patient about need to be compliant she is high risk for limb loss and will follow with Dr. Jones 2 weeks from discharge. Diabetic foot nonhealing ulcer: treat with abx Decubitus ulcer at least stage 3, poa: consulted Wound care, Consult ID, Started on vanco. Patient will benefit from Rehab placement HTN: continue antihypertensives ESRD on Hemodialysis TTS: Nephrology is following, monitor bmp closely, renal d iet Anemia of chronic disease: monitor cbc closely Malnutrition, poa: consulted Umbrella Tipper Machine PAD- Prox Superficial Femoral Artery associated with critical limb ischemia, see above: Vascular Surgeon is managing, s/p Re-vascularization procedure of her right leg 11/27/18 with good result. d/w Dr. Jones, Started on Plavix Chronic edema of left upper extremity: The patient has had multiple workup with no find is a student reason why. This also houses her AV graft. DVT and GI prophylaxis Plan of care discussed with the patient in detail History Interval history: Patient's on exam and reports some sensation to lower extremity. She denies any chest pain at this time. She reports that she has not been able to walk properly. She is willing to consider rehabilitation at this time. No other adverse event reported to the overnight Hospitalist Physical - Physical exam Narrative exam: Gen: thin cachetic chronically ill appearing and disable, NAD, Awake, Alert, Or ientated, bmi 18.9 HEENT: NCAT, EOMI, PERRL, OP dried blood on lip, stimata of old bleeding gums Neck: supple, no adenopathy, no thyromegaly, no JVD CVS/Heart: RRR, normal S1S2, pulses present bilaterally Chest/Lungs: CTA B, Symmetrical chest expansion, good air entry bilaterally GI/Abdomen: soft, NTND, good bowel sounds, no guarding or rebound /Bladder: no suprapubic tenderness, no CVA or paraspinal tenderness Extermity/Skin: top of right foot ulcer, pAD leg changes, Left upper ext edema- chronic and POA, AV graft , lupper ext MSK: FROM x 4 Neuro: CN 2-12 grossly intact, no new focal deficits Psych: calm - Constitutional Vitals: Temp Pulse Resp BP Pulse Ox 99.1 F 86 20 153/49 97 11/28/18 07:44 11/28/18 07:44 11/28/18 09:04 11/28/18 07:44 11/28/18 07:44 General appearance: Present: no acute distress Results - Labs CBC & Chem 7: 11/29/18 03:54 11/29/18 03:54 Labs: Laboratory Last Values WBC 7.8 K/mm3 (4.5-11.0) 11/28/18 04:03 RBC 3.07 M/mm3 (3.65-5.03) L 11/28/18 04:03 Hgb 7.9 gm/dl (10.1-14.3) L 11/28/18 04:03 Hct 24.7 % (30.3-42.9) L 11/28/18 04:03 MCV 80 fl (79-97) 11/28/18 04:03 MCH 26 pg (28-32) L 11/28/18 04:03 MCHC 32 % (30-34) 11/28/18 04:03 RDW 19.8 % (13.2-15.2) H 11/28/18 04:03 Plt Count 259 K/mm3 (140-440) 11/28/18 04:03 Lymph % (Auto) 10.4 % (13.4-35.0) L 11/20/18 23:30 Randall % (Auto) 8.1 % (0.0-7.3) H 11/20/18 23:30 Eos % (Auto) 3.3 % (0.0-4.3) 11/20/18 23:30 Baso % (Auto) 1.1 % (0.0-1.8) 11/20/18 23:30 Lymph # 0.8 K/mm3 (1.2-5.4) L 11/20/18 23:30 Randall # 0.6 K/mm3 (0.0-0.8) 11/20/18 23:30 Eos # 0.3 K/mm3 (0.0-0.4) 11/20/18 23:30 Baso # 0.1 K/mm3 (0.0-0.1) 11/20/18 23:30 Seg Neutrophils % 77.1 % (40.0-70.0) H 11/20/18 23:30 Seg Neutrophils # 6.0 K/mm3 (1.8-7.7) 11/20/18 23:30 PT 14.5 Sec. (12.2-14.9) 11/21/18 06:59 INR 1.16 (0.87-1.13) H 11/21/18 06:59 APTT 45.8 Sec. (24.2-36.6) H 11/21/18 06:59 Heparin Anti-Xa Level 0.27 U.I./ml (0.3-0.7) L 11/27/18 05:15 Sodium 133 mmol/L (137-145) L 11/28/18 04:03 Potassium 3.6 mmol/L (3.6-5.0) 11/28/18 04:03 Chloride 92.4 mmol/L (98-107) L 11/28/18 04:03 Carbon Dioxide 22 mmol/L (22-30) 11/28/18 04:03 22 mmol/L 11/28/18 04:03 BUN 43 mg/dL (7-17) H 11/28/18 04:03 6.6 mg/dL (0.7-1.2) H 11/28/18 04:03 Estimated GFR 8 ml/min 11/28/18 04:03 7 % 11/28/18 04:03 Glucose 182 mg/dL (65-100) H 11/28/18 04:03 POC Glucose 160 (70-105) H 11/28/18 07:52 Calcium 9.5 mg/dL (8.4-10.2) 11/28/18 04:03 0.20 mg/dL (0.1-1.2) 11/22/18 04:18 AST 21 units/L (5-40) 11/22/18 04:18 ALT 9 units/L (7-56) 11/22/18 04:18 96 units/L (35-129) 11/22/18 04:18 6.2 g/dL (6.3-8.2) L 11/22/18 04:18 3.3 g/dL (3.9-5) L 11/22/18 04:18 1.1 % 11/22/18 04:18 Hepatitis A IgM Ab Non-reactive (NonReactive) 11/21/18 16:28 Hep Bs Antigen Non-reactive (Negative) 11/21/18 16:28 Hep B Core IgM Ab Non-reactive (NonReactive) 11/21/18 16:28 Non-reactive (NonReactive) 11/21/18 16:28 Blood Type O POSITIVE 11/27/18 10:14 Antibody Screen Negative 11/27/18 10:14 Active Medications - Current Medications Current Medications: Generic Name Dose Route Start Last Admin Trade Name Freq PRN Reason Stop Dose Admin Acetaminophen 650 mg 11/21/18 06:16 11/27/18 21:49 Tylenol PO 650 mg Q4H PRN Administration Pain MILD(1-3)/Fever >100.5/PEREZ Albumin Human 25 gm 11/21/18 09:01 11/25/18 11:46 Alburx 25% (Albumin) IV 25 gm ANTOINETTE PRN Administration Hypotension Clonidine HCl 0.1 mg 11/21/18 06:41 Catapres PO TID PRN Blood Pressure Clopidogrel Bisulfate 75 mg 11/28/18 10:00 11/28/18 09:04 Plavix PO 75 mg QDAY CALIXTO Administration Dextrose 50 ml 11/21/18 06:16 D50w (25gm) Syringe IV PRN PRN Hypoglycemia Epoetin Khurram 10,000 unit 11/21/18 09:01 11/25/18 14:46 Procrit IV 10,000 unit ANTOINETTE PRN Administration hemodialysis Heparin Sodium (Porcine) 2,000 unit 11/21/18 09:01 11/25/18 11:12 Heparin 10,000 Units/10 Ml IV 2,000 unit ANTOINETTE PRN Administration hemodialysis Hydromorphone HCl 1 mg 11/22/18 13:09 11/25/18 22:53 Dilaudid IV 1 mg Q4H PRN Administration Pain , Severe (7-10) Sodium Chloride 100 mls @ 999 mls/hr 11/21/18 09:01 Nacl 0.9% IV ANTOINETTE PRN Hypotension Insulin Human Lispro 0 unit 11/21/18 07:30 11/28/18 08:21 Humalog SUB-Q 2 unit ACHS CALIXTO Administration Protocol Isosorbide Mononitrate 30 mg 11/21/18 10:00 11/27/18 09:20 Imdur PO 30 mg QDAY CALIXTO Administration Lisinopril 5 mg 11/21/18 10:00 11/27/18 09:19 Zestril PO 5 mg DAILY CALIXTO Administration Miscellaneous Medication 630 mg 11/21/18 08:00 Ferric Citrate PO TIDWM CALIXTO Mupirocin 1 applic 11/21/18 08:00 11/28/18 08:22 Bactroban 2% TP 1 applic TID CALIXTO Administration Naloxone HCl 0.1 mg 11/21/18 06:16 Narcan 0.4 Mg/1 Ml IV Q2MIN PRN Res Rate </= 8 or 02 SAT < 92% Ondansetron HCl 4 mg 11/21/18 06:16 11/23/18 00:48 Zofran IV 4 mg Q8H PRN Administration Nausea And Vomiting Oxycodone/Acetaminophen 1 tab 11/21/18 06:16 11/28/18 09:04 Percocet 5/325 PO 1 tab Q6H PRN Administration Pain, Moderate (4-6) Pantoprazole Sodium 40 mg 11/21/18 10:00 11/28/18 09:04 Protonix PO 40 mg BID CALIXTO Administration Sodium Chloride 10 ml 11/21/18 10:00 11/28/18 09:05 Sodium Chloride Flush Syringe 10 Ml IV 10 ml BID CALIXTO Administration Sodium Chloride 10 ml 11/21/18 06:16 Sodium Chloride Flush Syringe 10 Ml IV PRN PRN LINE FLUSH Nutrition/Malnutrition Assess - Dietary Evaluation Nutrition/Malnutrition Findings: Nutrition Notes Start: 11/22/18 17:49 Freq: Status: Active Protocol: Document 11/27/18 14:34 RM (Rec: 11/27/18 14:43 RM [id number]) Nutrition Notes Initial or Follow up Reassessment Current Diagnosis Diabetes,Hypertension Other Pertinent Diagnosis ESRD on HD (T/R/S), PVD, diabetic ulcer Current Diet NPO Labs/Tests Reviewed Pertinent Medications Reviewed Height 5 ft 2 in Weight 46.8 kg [place] Body Weight (kg) 50.00 BMI 18.8 Subjective/Other Information NPO in place for R leg revascularization. Pt stated that her preferences are not being honored and that she did not each lunch and only ate half of dinner yesterday. [employer] Manager spoke w/over [employer] targeting supervisor. Noted one half drunk and 3 unopened Nepro at bedside. Pt stated that sometime she does not drink the Nepro d/t pain. Burn Absent Trauma Absent #2 Nutrition Diagnosis Underweight Diagnosis Progress(for reassessment Continues documentation) #1 Nutrition Diagnosis Inadequate oral intake Diagnosis Progress(for reassessment Continues documentation) Is patient on ventilator? No Is Patient Ambulatory and/or Out of Bed No REE-([facility]-confined to bed) 1135.656 Kcal/Kg value to use for calculation 31 Approximate Energy Requirements Using 1451 kcal/Kg Calculation Used for Recommendations [facility] Additional Notes Protein Needs: 55-69g (1.2-1. 5g/kg) Fluid Needs: 1 ml/kcal Nutrition Intervention Change Diet Order: Advance diet when medically able Add Supplement/Snack (indicate name/kcal Nepro Vanilla, Butter Pecan 1 /protein ) daily once diet advanced Provides kCal: 425 Provides Protein (gm) 19 Goal #1 Diet advancement Anticipated Discharge Needs: Renal diet Follow-Up By: 11/29/18 Additional Comments Follow for diet advancement, PO and ONS intakes
[2018-11-28] MEDS: IMDUR PO SCH (10:00)
[2018-11-28] MEDS: ZESTRIL PO SCH (10:00)
--- NOTE | 2018-11-28 11:55 | Progress Note ---
Assessment and Plan 68-year-old female with critical limb ischemia of the right lower extremity with gangrene of the ankle status post revascularization with good angiographic result. The right ankle area has some surrounding erythema with some minimal drainage per wound care notes. Consider infectious disease consult. Rest pain has resolved. The limb is now hot and well perfused. The only runoff was the peroneal artery which would not result in palpable pulses. Needs to take Plavix daily or stents will likely occlude and patient will be at high risk for limb loss. Follow-up with me in 2 weeks. Will need wound care consult in order to establish care for follow-up. Subjective Date of service: 11/28/18 Principal diagnosis: PVD with nonhealing ulcer Interval history: Status post revascularization currently on hemodialysis. The right lower extremity is hot with reperfusion. Patient has gangrene of her ankle area with some surrounding mild erythema. She has pain centered on this area which extends throughout the calf. She previously had rest pain which has resolved. The area of gangrene was previously with decreased sensation but now has more sensation with revascularization. No left groin hematoma. No right thigh hematoma. H&H stable. Objective - Constitutional Vitals: Vital Signs - 12hr 11/28/18 11/28/18 11/28/18 00:20 00:21 00:30 Temperature 32.1 F L 98.5 F Pulse Rate 93 H 89 Respiratory 16 Rate Blood Pressure 142/46 O2 Sat by Pulse 100 100 Oximetry 11/28/18 11/28/18 11/28/18 02:27 07:44 09:04 Temperature 99.3 F 99.1 F Pulse Rate 86 86 Respiratory 14 18 20 Rate Blood Pressure 151/43 153/49 O2 Sat by Pulse 96 97 Oximetry General appearance: Present: no acute distress, other (on dialysis) - EENT Eyes: EOM intact ENT: hearing intact - Respiratory Respiratory effort: normal Extremities: abnormal (see subjective) - Psychiatric Psychiatric: appropriate mood/affect, cooperative - Labs CBC & Chem 7: 11/28/18 04:03 11/28/18 04:03 Labs: Abnormal lab results 11/27/18 11/27/18 11/28/18 Range/Units 15:33 18:18 04:03 RBC 3.07 L (3.65-5.03) M/mm3 Hgb 7.9 L (10.1-14.3) gm/dl Hct 24.7 L (30.3-42.9) % MCH 26 L (28-32) pg RDW 19.8 H (13.2-15.2) % Activated Clotting Time 180 H (74-137) Sodium (137-145) mmol/L Chloride (98-107) mmol/L BUN (7-17) mg/dL Creatinine (0.7-1.2) mg/dL Glucose (65-100) mg/dL POC Glucose 121 H (70-105) 11/28/18 11/28/18 Range/Units 04:03 07:52 RBC (3.65-5.03) M/mm3 Hgb (10.1-14.3) gm/dl Hct (30.3-42.9) % MCH (28-32) pg RDW (13.2-15.2) % Activated Clotting Time (74-137) Sodium 133 L (137-145) mmol/L Chloride 92.4 L (98-107) mmol/L BUN 43 H (7-17) mg/dL Creatinine 6.6 H (0.7-1.2) mg/dL Glucose 182 H (65-100) mg/dL POC Glucose 160 H (70-105) Medications & Allergies - Medications Allergies/Adverse Reactions: Allergies erythromycin base [Erythromycin Base] Allergy (Verified 10/26/18 18:04) Rash PATIENT ASK ME TO REMOVEDMED ON ALLERGY LIST. Home Medications: Home Medications Medication Instructions Recorded Confirmed Last Taken Type Ferric Citrate (Nf) [Auryxia] 630 mg PO TIDWM 09/05/18 11/21/18 11/18/18 History Pantoprazole [Protonix TAB] 40 mg PO BID #60 tablet 10/03/18 11/21/18 10/16/18 20:00 Rx ISOSORBIDE MONOnitrate [Imdur ER] 30 mg PO QDAY #30 tablet 10/04/18 11/21/18 Unknown Rx Lisinopril [Zestril TAB] 5 mg PO DAILY #30 tablet 10/04/18 11/21/18 Unknown Rx cloNIDine [Catapres] 0.1 mg PO TID PRN 10/17/18 11/21/18 Unknown History Mupirocin [Bactroban 2%] 1 applic TP TID #1 tube 10/29/18 11/21/18 Unknown Rx Clopidogrel [Plavix] 75 mg PO QDAY #30 tablet 11/28/18 Unknown Rx Active Medications: Generic Name Dose Route Start Last Admin Trade Name Lucas PRN Reason Stop Dose Admin Acetaminophen 650 mg 11/21/18 06:16 11/27/18 21:49 Tylenol PO 650 mg Q4H PRN Administration Pain MILD(1-3)/Fever >100.5/PEREZ Albumin Human 25 gm 11/21/18 09:01 11/25/18 11:46 Alburx 25% (Albumin) IV 25 gm ANTOINETTE PRN Administration Hypotension Clonidine HCl 0.1 mg 11/21/18 06:41 Catapres PO TID PRN Blood Pressure Clopidogrel Bisulfate 75 mg 11/28/18 10:00 11/28/18 09:04 Plavix PO 75 mg QDAY CALIXTO Administration Dextrose 50 ml 11/21/18 06:16 D50w (25gm) Syringe IV PRN PRN Hypoglycemia Epoetin Khurram 10,000 unit 11/21/18 09:01 11/25/18 14:46 Procrit IV 10,000 unit ANTOINETTE PRN Administration hemodialysis Heparin Sodium (Porcine) 2,000 unit 11/21/18 09:01 11/25/18 11:12 Heparin 10,000 Units/10 Ml IV 2,000 unit ANTOINETTE PRN Administration hemodialysis Hydromorphone HCl 1 mg 11/22/18 13:09 11/25/18 22:53 Dilaudid IV 1 mg Q4H PRN Administration Pain , Severe (7-10) Sodium Chloride 100 mls @ 999 mls/hr 11/21/18 09:01 Nacl 0.9% IV ANTOINETTE PRN Hypotension Insulin Human Lispro 0 unit 11/21/18 07:30 11/28/18 08:21 Humalog SUB-Q 2 unit ACHS CALIXTO Administration Protocol Isosorbide Mononitrate 30 mg 11/21/18 10:00 11/27/18 09:20 Imdur PO 30 mg QDAY CALIXTO Administration Lisinopril 5 mg 11/21/18 10:00 11/27/18 09:19 Zestril PO 5 mg DAILY CALIXTO Administration Miscellaneous Medication 630 mg 11/21/18 08:00 Ferric Citrate PO TIDWM [facility] Mupirocin 1 applic 11/21/18 08:00 11/28/18 08:22 Bactroban 2% TP 1 applic TID CALIXTO Administration Naloxone HCl 0.1 mg 11/21/18 06:16 Narcan 0.4 Mg/1 Ml IV Q2MIN PRN Res Rate </= 8 or 02 SAT < 92% Ondansetron HCl 4 mg 11/21/18 06:16 11/23/18 00:48 Zofran IV 4 mg Q8H PRN Administration Nausea And Vomiting Oxycodone/Acetaminophen 1 tab 11/21/18 06:16 11/28/18 09:04 Percocet 5/325 PO 1 tab Q6H PRN Administration Pain, Moderate (4-6) Pantoprazole Sodium 40 mg 11/21/18 10:00 11/28/18 09:04 Protonix PO 40 mg BID CALIXTO Administration Sodium Chloride 10 ml 11/21/18 10:00 11/28/18 09:05 Sodium Chloride Flush Syringe 10 Ml IV 10 ml BID CALIXTO Administration Sodium Chloride 10 ml 11/21/18 06:16 Sodium Chloride Flush Syringe 10 Ml IV PRN PRN LINE FLUSH
[2018-11-28] MEDS ORDERED: NACL 0.9 (PRIMING MACHINE ONLY DIALYSIS) MC ONE ×2 (13:53→15:02)
[2018-11-28] MEDS: DILAUDID IV PRN ×2 (14:00→19:59)
--- NOTE | 2018-11-28 15:25 | Consultation ---
History of Present Illness - Reason for Consult Consult date: 11/28/18 RLE cellulitis Requesting physician: MARILYN THRASHER - History of Present Illness The patient is a 68-year-old female with hypertension, ESRD on hemodialysis every Tuesday, and Tuesday, peripheral vascular disease, diabetes mellitus, gastroesophageal reflux disease was admitted to the hospital on 11/21/2018 after she presented to the emergency room with right leg pain. Due to concern for acute critical right lower extremity ischemia, she underwent an aortogram and right lower extremity angiography on 11/22/2018. On 11/27/2018, she underwent revascularization by Dr. Jones. She initially spiked a fever of 102.7F on 11/23/2018, and had a couple of low-grade fevers on 11/26/2018. Due to concern for right lower extremity cellulitis, infectious diseases was consulted today. Patient was seen at hemodialysis, complains of right leg pain. Otherwise denies any nausea or vomiting. Has been afebrile today. Review of Systems: General: no fevers,chills or rigors HEENT: no new visual disturbance Respiratory: No cough, sputum, hemoptysis or shortness of breath Cardiovascular: No chest pain, syncope Gastrointestinal: No nausea, vomiting or diarrhea Genitourinary: No dysuria or hematuria Musculoskeletal: No new or worsening neck pain or back pain Neurologic: No headaches, seizures Hematologic: No easy bruising or bleeding Endocrine: No night sweats or acute weight loss Skin: negative for rash, jaundice Psychiatric: No suicidal or homicidal ideation Past History Past Medical History: anemia, diabetes, hypertension Past Surgical History: Other (left upper extremity arteriovenous graft with m ultiple percutaneous interventions) Social history: full code Family history: diabetes, hypertension Medications and Allergies Allergies Allergy/AdvReac Type Severity Reaction Status Date / Time erythromycin base Allergy Rash Verified 10/26/18 18:04 [Erythromycin Base] Home Medications Medication Instructions Recorded Confirmed Last Taken Type Ferric Citrate (Nf) [Auryxia] 630 mg PO TIDWM 09/05/18 11/21/18 11/18/18 History Pantoprazole [Protonix TAB] 40 mg PO BID #60 tablet 10/03/18 11/21/18 10/16/18 20:00 Rx ISOSORBIDE MONOnitrate [Imdur ER] 30 mg PO QDAY #30 tablet 10/04/18 11/21/18 Unknown Rx Lisinopril [Zestril TAB] 5 mg PO DAILY #30 tablet 10/04/18 11/21/18 Unknown Rx cloNIDine [Catapres] 0.1 mg PO TID PRN 10/17/18 11/21/18 Unknown History Mupirocin [Bactroban 2%] 1 applic TP TID #1 tube 10/29/18 11/21/18 Unknown Rx Clopidogrel [Plavix] 75 mg PO QDAY #30 tablet 11/28/18 Unknown Rx Active Meds: Active Medications Acetaminophen (Tylenol) 650 mg PO Q4H PRN PRN Reason: Pain MILD(1-3)/Fever >100.5/PEREZ Last Admin: 11/27/18 21:49 Dose: 650 mg Documented by: Albumin Human (Alburx 25% (Albumin)) 25 gm IV ANTOINETTE PRN PRN Reason: Hypotension Last Admin: 11/25/18 11:46 Dose: 25 gm Documented by: Clonidine HCl (Catapres) 0.1 mg PO TID PRN PRN Reason: Blood Pressure Clopidogrel Bisulfate (Plavix) 75 mg PO QDAY [facility] Last Admin: 11/28/18 09:04 Dose: 75 mg Documented by: Dextrose (D50w (25gm) Syringe) 50 ml IV PRN PRN PRN Reason: Hypoglycemia Epoetin Khurram (Procrit) 10,000 unit IV ANTOINETTE PRN PRN Reason: hemodialysis Last Admin: 11/25/18 14:46 Dose: 10,000 unit Documented by: Heparin Sodium (Porcine) (Heparin 10,000 Units/10 Ml) 2,000 unit IV ANTOINETTE PRN PRN Reason: hemodialysis Last Admin: 11/25/18 11:12 Dose: 2,000 unit Documented by: Hydromorphone HCl (Dilaudid) 1 mg IV Q4H PRN PRN Reason: Pain , Severe (7-10) Last Admin: 11/25/18 22:53 Dose: 1 mg Documented by: Sodium Chloride (Nacl 0.9%) 100 mls @ 999 mls/hr IV ANTOINETTE PRN PRN Reason: Hypotension Insulin Human Lispro (Humalog) 0 unit SUB-Q ACHS [facility]; Protocol Last Admin: 11/28/18 12:22 Dose: Not Given Documented by: Isosorbide Mononitrate (Imdur) 30 mg PO QDAY [facility] Last Admin: 11/27/18 09:20 Dose: 30 mg Documented by: Lisinopril (Zestril) 5 mg PO DAILY [facility] Last Admin: 11/27/18 09:19 Dose: 5 mg Documented by: Miscellaneous Medication (Ferric Citrate) 630 mg PO TIDWM [facility] Mupirocin (Bactroban 2%) 1 applic TP TID [facility] Last Admin: 11/28/18 08:22 Dose: 1 applic Documented by: Naloxone HCl (Narcan 0.4 Mg/1 Ml) 0.1 mg IV Q2MIN PRN PRN Reason: Res Rate </= 8 or 02 SAT < 92% Ondansetron HCl (Zofran) 4 mg IV Q8H PRN PRN Reason: Nausea And Vomiting Last Admin: 11/23/18 00:48 Dose: 4 mg Documented by: Oxycodone/Acetaminophen (Percocet 5/325) 1 tab PO Q6H PRN PRN Reason: Pain, Moderate (4-6) Last Admin: 11/28/18 09:04 Dose: 1 tab Documented by: Pantoprazole Sodium (Protonix) 40 mg PO BID [facility] Last Admin: 11/28/18 09:04 Dose: 40 mg Documented by: Sodium Chloride (Sodium Chloride Flush Syringe 10 Ml) 10 ml IV BID [facility] Last Admin: 11/28/18 09:05 Dose: 10 ml Documented by: Sodium Chloride (Sodium Chloride Flush Syringe 10 Ml) 10 ml IV PRN PRN PRN Reason: LINE FLUSH Physical Examination - Physical Exam Narrative exam: Physical Exam: Constitutional: Alert, cooperative. No acute distress Head, Ears, Nose: Normocephalic, atraumatic. External ears, nose normal Eyes: Conjunctivae/corneas clear. No icterus. No ptosis. Neck: Supple, no meningeal signs Oral: dentition fair, no thrush Cardiovascular: S1, S2 normal. 3/6 systolic murmur Respiratory: Good air entry, clear to auscultation bilaterally GI: Soft, non-tender; bowel sounds normal. No peritoneal signs Musculoskeletal: Bilateral lower extremity with dystrophic toenails, right lower extremity with tenderness, scab on the dorsum of the foot with scant serous drainage. Skin: No rash or abscess Hem/Lymphatic: No palpable cervical or supraclavicular nodes. No lymphangitis Psych: Mood ok. Affect normal Neurological: Awake, alert, oriented. No gross abnormality - Constitutional Vitals: Vital Signs Temp Pulse Resp BP Pulse Ox 99.1 F 86 20 153/49 97 11/28/18 07:44 11/28/18 07:44 11/28/18 09:04 11/28/18 07:44 11/28/18 07:44 Temperature -Last 24 Hours Temperature 99.1 F Temperature 99.3 F Temperature 98.5 F Temperature 32.1 F Temperature 97.7 F Temperature 97.6 F Results - Labs CBC & Chem 7: 11/28/18 04:03 11/28/18 04:03 Labs: Imaging: reviewed personally. 11/20/2018 right lower extremity x-ray: Negative for osteomyelitis Abnormal lab results 11/27/18 11/27/18 11/28/18 Range/Units 15:33 18:18 04:03 RBC 3.07 L (3.65-5.03) M/mm3 Hgb 7.9 L (10.1-14.3) gm/dl Hct 24.7 L (30.3-42.9) % MCH 26 L (28-32) pg RDW 19.8 H (13.2-15.2) % Activated Clotting Time 180 H (74-137) Sodium (137-145) mmol/L Chloride (98-107) mmol/L BUN (7-17) mg/dL Creatinine (0.7-1.2) mg/dL Glucose (65-100) mg/dL POC Glucose 121 H (70-105) 11/28/18 11/28/18 Range/Units 04:03 07:52 RBC (3.65-5.03) M/mm3 Hgb (10.1-14.3) gm/dl Hct (30.3-42.9) % MCH (28-32) pg RDW (13.2-15.2) % Activated Clotting Time (74-137) Sodium 133 L (137-145) mmol/L Chloride 92.4 L (98-107) mmol/L BUN 43 H (7-17) mg/dL Creatinine 6.6 H (0.7-1.2) mg/dL Glucose 182 H (65-100) mg/dL POC Glucose 160 H (70-105) Assessment and Plan Cultures: 11/26/2018 blood culture: No growth A/P: 68-year-old female with hypertension, ESRD on hemodialysis every Tuesday, and Tuesday, peripheral vascular disease, diabetes mellitus, gastroesophageal reflux disease was admitted to the hospital on 11/21/2018 after she presented to the emergency room with acute RLE ischemia: 1) Right lower extremity acute pain and cellulitis: In the setting of revascularization for acute limb ischemia. X-ray negative for osteomyelitis. No leukocytosis. Scant drainage + with tenderness. Start IV vancomycin, renally adjusted. 2) ESRD on HD: Renally dose antibiotics. 3) Severe peripheral vascular disease, status post revascularization of her right lower extremity on 11/27/2018. 4) Diabetes mellitus: monitor blood sugars. Recs: IV vancomycin started, renally adjusted D/W Dr. Thrasher. Tomas Smith MD, FACP [facility] C: [phone] O: [phone] F: [phone]
[2018-11-28] MEDS: PROCRIT IV PRN (15:30)
[2018-11-28] MEDS ORDERED: VANCOMYCIN PHARMACY TO DOSE IV SCH (16:00)
[2018-11-28] MEDS ORDERED: VANCOMYCIN 750 MG in NACL 0.9% 250ML 250 ML IV ONE (18:00)
[2018-11-28] MEDS: ZOFRAN IV PRN (19:59)
[2018-11-29 04:34] LABS: Hematocrit 26.9 % (30.3-42.9); Hemoglobin 8.4 gm/dl (10.1-14.3); Mean Corpuscular HGB Conc 31 % (30-34); Mean Corpuscular Volume 82 fl (79-97); Platelet Count 272 K/mm3 (140-440); Red Blood Count 3.29 M/mm3 (3.65-5.03); Red Cell Distribution Width 19.4 % (13.2-15.2)
[2018-11-29 04:52] LABS: Calcium 9.3 mg/dL (8.4-10.2)
--- NOTE | 2018-11-29 08:11 | Progress Note ---
Assessment and Plan Patient doing well. Okay to discharge from a vascular standpoint with follow-up in 2 weeks in our office. Subjective Date of service: 11/29/18 Principal diagnosis: PVD with nonhealing ulcer Interval history: Patient doing well. She has minimal reperfusion edema. She will need assistance with ambulation and may require a durable medical equipment on discharge. Objective - Constitutional Vitals: Vital Signs - 12hr 11/28/18 11/29/18 11/29/18 22:00 02:41 03:14 Temperature 101.2 F H 100.2 F H Pulse Rate 96 H Respiratory 18 18 18 Rate Blood Pressure 136/60 O2 Sat by Pulse 99 96 Oximetry 11/29/18 05:42 Temperature 99.0 F Pulse Rate Respiratory 18 Rate Blood Pressure O2 Sat by Pulse Oximetry General appearance: Present: no acute distress - EENT Eyes: EOM intact ENT: hearing intact - Neck Neck: supple, normal ROM - Respiratory Respiratory effort: normal - Breasts Breasts: deferred - Cardiovascular Rhythm: regular Extremities: abnormal - Gastrointestinal General gastrointestinal: Present: deferred Rectal Exam: deferred - Genitourinary Female genitourinary: deferred - Psychiatric Psychiatric: appropriate mood/affect, cooperative - Labs CBC & Chem 7: 11/29/18 03:54 11/29/18 03:54 Labs: Abnormal lab results 11/27/18 11/28/18 11/28/18 Range/Units 15:33 16:51 21:12 RBC (3.65-5.03) M/mm3 Hgb (10.1-14.3) gm/dl Hct (30.3-42.9) % MCH (28-32) pg RDW (13.2-15.2) % Activated Clotting Time 180 H (74-137) Potassium (3.6-5.0) mmol/L Chloride (98-107) mmol/L Creatinine (0.7-1.2) mg/dL Glucose (65-100) mg/dL POC Glucose 177 H 129 H (70-105) 11/29/18 11/29/18 11/29/18 Range/Units 03:54 03:54 07:13 RBC 3.29 L (3.65-5.03) M/mm3 Hgb 8.4 L (10.1-14.3) gm/dl Hct 26.9 L (30.3-42.9) % MCH 26 L (28-32) pg RDW 19.4 H (13.2-15.2) % Activated Clotting Time (74-137) Potassium 3.3 L (3.6-5.0) mmol/L Chloride 96.1 L (98-107) mmol/L Creatinine 3.2 H D (0.7-1.2) mg/dL Glucose 153 H (65-100) mg/dL POC Glucose 244 H (70-105) Medications & Allergies - Medications Allergies/Adverse Reactions: Allergies erythromycin base [Erythromycin Base] Allergy (Verified 10/26/18 18:04) Rash PATIENT ASK ME TO REMOVEDMED ON ALLERGY LIST. Home Medications: Home Medications Medication Instructions Recorded Confirmed Last Taken Type Ferric Citrate (Nf) [Auryxia] 630 mg PO TIDWM 09/05/18 11/21/18 11/18/18 History Pantoprazole [Protonix TAB] 40 mg PO BID #60 tablet 10/03/18 11/21/18 10/16/18 20:00 Rx ISOSORBIDE MONOnitrate [Imdur ER] 30 mg PO QDAY #30 tablet 10/04/18 11/21/18 Unknown Rx Lisinopril [Zestril TAB] 5 mg PO DAILY #30 tablet 10/04/18 11/21/18 Unknown Rx cloNIDine [Catapres] 0.1 mg PO TID PRN 10/17/18 11/21/18 Unknown History Mupirocin [Bactroban 2%] 1 applic TP TID #1 tube 10/29/18 11/21/18 Unknown Rx Clopidogrel [Plavix] 75 mg PO QDAY #30 tablet 11/28/18 Unknown Rx Active Medications: Generic Name Dose Route Start Last Admin Trade Name Freq PRN Reason Stop Dose Admin Acetaminophen 650 mg 11/21/18 06:16 11/27/18 21:49 Tylenol PO 650 mg Q4H PRN Administration Pain MILD(1-3)/Fever >100.5/PEREZ Albumin Human 25 gm 11/21/18 09:01 11/25/18 11:46 Alburx 25% (Albumin) IV 25 gm ANTOINETTE PRN Administration Hypotension Clonidine HCl 0.1 mg 11/21/18 06:41 Catapres PO TID PRN Blood Pressure Clopidogrel Bisulfate 75 mg 11/28/18 10:00 11/28/18 09:04 Plavix PO 75 mg QDAY [facility] Administration Dextrose 50 ml 11/21/18 06:16 D50w (25gm) Syringe IV PRN PRN Hypoglycemia Epoetin Khurram 10,000 unit 11/21/18 09:01 11/28/18 15:30 Procrit IV 10,000 unit ANTOINETTE PRN Administration hemodialysis Heparin Sodium (Porcine) 2,000 unit 11/21/18 09:01 11/25/18 11:12 Heparin 10,000 Units/10 Ml IV 2,000 unit ANTOINETTE PRN Administration hemodialysis Hydromorphone HCl 1 mg 11/22/18 13:09 11/28/18 19:59 Dilaudid IV 1 mg Q4H PRN Administration Pain , Severe (7-10) Sodium Chloride 100 mls @ 999 mls/hr 11/21/18 09:01 Nacl 0.9% IV ANTOINETTE PRN Hypotension Insulin Human Lispro 0 unit 11/21/18 07:30 11/28/18 21:55 Humalog SUB-Q Not Given ACHS [facility] Protocol Isosorbide Mononitrate 30 mg 11/21/18 10:00 11/28/18 10:00 Imdur PO Not Given QDAY [facility] Lisinopril 5 mg 11/21/18 10:00 11/28/18 10:00 Zestril PO Not Given DAILY [facility] Miscellaneous Medication 630 mg 11/21/18 08:00 Ferric Citrate PO TIDWM [facility] Mupirocin 1 applic 11/21/18 08:00 11/28/18 21:54 Bactroban 2% TP 1 applic TID [facility] Administration Naloxone HCl 0.1 mg 11/21/18 06:16 Narcan 0.4 Mg/1 Ml IV Q2MIN PRN Res Rate </= 8 or 02 SAT < 92% Ondansetron HCl 4 mg 11/21/18 06:16 11/28/18 19:59 Zofran IV 4 mg Q8H PRN Administration Nausea And Vomiting Oxycodone/Acetaminophen 1 tab 11/21/18 06:16 11/28/18 09:04 Percocet 5/325 PO 1 tab Q6H PRN Administration Pain, Moderate (4-6) Pantoprazole Sodium 40 mg 11/21/18 10:00 11/28/18 21:54 Protonix PO 40 mg BID [facility] Administration Sodium Chloride 10 ml 11/21/18 10:00 11/28/18 21:55 Sodium Chloride Flush Syringe 10 Ml IV 10 ml BID [facility] Administration Sodium Chloride 10 ml 11/21/18 06:16 Sodium Chloride Flush Syringe 10 Ml IV PRN PRN LINE FLUSH
[2018-11-29] MEDS: HumaLOG SUB-Q SCH ×4 (08:35→22:39)
[2018-11-29] MEDS: BACTROBAN 2% TP SCH ×3 (08:35→20:45)
--- NOTE | 2018-11-29 09:17 | Progress Note ---
Assessment and Plan Cultures: 11/26/2018 blood culture: No growth A/P: 68-year-old female with hypertension, ESRD on hemodialysis every Tuesday, and Tuesday, peripheral vascular disease, diabetes mellitus, gastroesophageal reflux disease was admitted to the hospital on 11/21/2018 after she presented to the emergency room with acute RLE ischemia: 1) Right lower extremity acute pain and cellulitis: In the setting of revascularization for acute limb ischemia. X-ray negative for osteomyelitis. No leukocytosis. Scant drainage + with tenderness. Continue vancomycin renally adjusted. 2) ESRD on HD: Renally dose antibiotics. 3) Severe peripheral vascular disease, status post revascularization of her right lower extremity on 11/27/2018. 4) Diabetes mellitus: monitor blood sugars. 5) Fever: fever spike noted 101.2, etiology most likely acute limb ischemia. Continue Vancomycin for now. If remains afebrile for 24 hours, can discharge on PO antibiotics for 5 days. Recs: Continue vancomycin renally adjusted, D2 If remains afebrile for 24 hours, can discharge on Doxycycline 100mg PO BID and Keflex 250mg PO BID for 5 days. D/W Dr. Price Romero, DIRECTOR [employer] [facility] M: [phone] O:[phone] Subjective Date of service: 11/29/18 Principal diagnosis: PVD with nonhealing ulcer Interval history: Patient seen and examined. Reports no acute distress. Continued right leg pain and tenderness. +Fevers. Objective - Exam Narrative Exam: Constitutional: Alert, cooperative. No acute distress Head, Ears, Nose: Normocephalic, atraumatic. External ears, nose normal Eyes: Conjunctivae/corneas clear. No icterus. No ptosis. Neck: Supple, no meningeal signs Oral: dentition fair, no thrush Cardiovascular: S1, S2 normal. 3/6 systolic murmur Respiratory: Good air entry, clear to auscultation bilaterally GI: Soft, non-tender; bowel sounds normal. No peritoneal signs Musculoskeletal: Bilateral lower extremity with dystrophic toenails, right lower extremity with tenderness, scab on the dorsum of the foot with scant serous drainage. Skin: No rash or abscess Hem/Lymphatic: No palpable cervical or supraclavicular nodes. No lymphangitis Psych: Mood ok. Affect normal Neurological: Awake, alert, oriented. No gross abnormality - Constitutional Vitals: Vital Signs Temp Pulse Resp BP Pulse Ox 99 F 92 H 20 140/55 100 11/29/18 08:43 11/29/18 08:43 11/29/18 08:43 11/29/18 08:43 11/29/18 08:43 Temperature -Last 24 Hours Temperature 99 F Temperature 99.0 F Temperature 100.2 F Temperature 101.2 F Temperature 98.6 F Temperature 99.1 F Temperature 98.4 F Temperature 98.6 F - Labs CBC & Chem 7: 11/29/18 03:54 11/29/18 03:54 Labs: Abnormal lab results 11/27/18 11/28/18 11/28/18 Range/Units 15:33 16:51 21:12 RBC (3.65-5.03) M/mm3 Hgb (10.1-14.3) gm/dl Hct (30.3-42.9) % MCH (28-32) pg RDW (13.2-15.2) % Activated Clotting Time 180 H (74-137) Potassium (3.6-5.0) mmol/L Chloride (98-107) mmol/L Creatinine (0.7-1.2) mg/dL Glucose (65-100) mg/dL POC Glucose 177 H 129 H (70-105) 11/29/18 11/29/18 11/29/18 Range/Units 03:54 03:54 07:13 RBC 3.29 L (3.65-5.03) M/mm3 Hgb 8.4 L (10.1-14.3) gm/dl Hct 26.9 L (30.3-42.9) % MCH 26 L (28-32) pg RDW 19.4 H (13.2-15.2) % Activated Clotting Time (74-137) Potassium 3.3 L (3.6-5.0) mmol/L Chloride 96.1 L (98-107) mmol/L Creatinine 3.2 H D (0.7-1.2) mg/dL Glucose 153 H (65-100) mg/dL POC Glucose 244 H (70-105)
[2018-11-29] MEDS: SODIUM CHLORIDE FLUSH SYRINGE 10 ML IV SCH ×2 (09:31→22:39)
[2018-11-29] MEDS: IMDUR PO SCH (09:31)
[2018-11-29] MEDS: PROTONIX PO SCH ×2 (09:31→22:38)
[2018-11-29] MEDS: PLAVIX PO SCH (09:31)
[2018-11-29] MEDS: ZESTRIL PO SCH (09:32)
--- NOTE | 2018-11-29 10:12 | Progress Note ---
Assessment and Plan Impression: * End stage renal disease * Peripheral artery disease * Right leg ulceration * Hypertension * Type II DM * Hx of GI bleed --Colonoscopy: No gross lesions and no blood seen in the colon. Large internal and external hemorrhoids. Inadequate prep --EGD: Duodenum - nodularity biopsied to r/o adenoma. Severe duodenitis of the bulb. Deep cratered pre-pyloric clean based ulcer * Secondary hyperparathyroidism * Anemia secondary to ESRD Plan: * Continue outpatient TTS schedule * UF as tolerated * Heparin gtt per primary team/vascular surgery * Vascular surgery following * Epogen TIW prn * Continue antiHTN medications * Renal diet * Patient lives alone and apparently her Home situation is poor. Patient needs placement Subjective Date of service: 11/29/18 Principal diagnosis: PVD with nonhealing ulcer Interval history: Patient is comfortable. Denies any shortness of breath. Uneventful hemodialysis yesterday. Objective - Vital Signs Vital signs: Vital Signs - 12hr 11/29/18 11/29/18 11/29/18 02:41 03:14 05:42 Temperature 101.2 F H 100.2 F H 99.0 F Pulse Rate 96 H Respiratory 18 18 18 Rate Blood Pressure 136/60 Blood Pressure [Right] O2 Sat by Pulse 96 Oximetry 11/29/18 11/29/18 11/29/18 08:43 09:31 09:32 Temperature 99 F Pulse Rate 92 H 92 H 92 H Respiratory 20 Rate Blood Pressure 140/55 140/55 Blood Pressure 140/55 [Right] O2 Sat by Pulse 100 Oximetry 11/29/18 09:39 Temperature Pulse Rate Respiratory 20 Rate Blood Pressure Blood Pressure [Right] O2 Sat by Pulse 100 Oximetry - General Appearance General appearance: chronically ill, frail, other (pleasant -Citizen Of [place] female) EENT: PERRL, mucous membranes moist Neck: no JVD, no thyromegaly, no carotid bruit, supple Respiratory: Present: Clear to Ascultation Cardiology: regular, normal heart rate, S1S2, no murmurs Gastrointestinal: normal, normoactive bowel sounds Integumentary: other (ulceration noted in the dorsum of her right foot. AV fistula left upper arm. Good bruit and thrill. Edema in her left upper extremity) - Lab 11/29/18 03:54 11/29/18 03:54 Most recent lab results Calcium 9.3 mg/dL (8.4-10.2) 11/29/18 03:54 Medications & Allergies - Medications Allergies/Adverse Reactions: Allergies erythromycin base [Erythromycin Base] Allergy (Verified 10/26/18 18:04) Rash PATIENT ASK ME TO REMOVEDMED ON ALLERGY LIST. Home Medications: Home Medications Medication Instructions Recorded Confirmed Last Taken Type Ferric Citrate (Nf) [Auryxia] 630 mg PO TIDWM 09/05/18 11/21/18 11/18/18 History Pantoprazole [Protonix TAB] 40 mg PO BID #60 tablet 10/03/18 11/21/18 10/16/18 20:00 Rx ISOSORBIDE MONOnitrate [Imdur ER] 30 mg PO QDAY #30 tablet 10/04/18 11/21/18 Unknown Rx Lisinopril [Zestril TAB] 5 mg PO DAILY #30 tablet 10/04/18 11/21/18 Unknown Rx cloNIDine [Catapres] 0.1 mg PO TID PRN 10/17/18 11/21/18 Unknown History Mupirocin [Bactroban 2%] 1 applic TP TID #1 tube 10/29/18 11/21/18 Unknown Rx Clopidogrel [Plavix] 75 mg PO QDAY #30 tablet 11/28/18 Unknown Rx Active Medications: Generic Name Dose Route Start Last Admin Trade Name Gonsaloq PRN Reason Stop Dose Admin Acetaminophen 650 mg 11/21/18 06:16 11/27/18 21:49 Tylenol PO 650 mg Q4H PRN Administration Pain MILD(1-3)/Fever >100.5/PEREZ Albumin Human 25 gm 11/21/18 09:01 11/25/18 11:46 Alburx 25% (Albumin) IV 25 gm ANTOINETTE PRN Administration Hypotension Clonidine HCl 0.1 mg 11/21/18 06:41 Catapres PO TID PRN Blood Pressure Clopidogrel Bisulfate 75 mg 11/28/18 10:00 11/29/18 09:31 Plavix PO 75 mg QDAY [facility] Administration Dextrose 50 ml 11/21/18 06:16 D50w (25gm) Syringe IV PRN PRN Hypoglycemia Epoetin Khurram 10,000 unit 11/21/18 09:01 11/28/18 15:30 Procrit IV 10,000 unit ANTOINETTE PRN Administration hemodialysis Heparin Sodium (Porcine) 2,000 unit 11/21/18 09:01 11/25/18 11:12 Heparin 10,000 Units/10 Ml IV 2,000 unit ANTOINETTE PRN Administration hemodialysis Hydromorphone HCl 1 mg 11/22/18 13:09 11/28/18 19:59 Dilaudid IV 1 mg Q4H PRN Administration Pain , Severe (7-10) Sodium Chloride 100 mls @ 999 mls/hr 11/21/18 09:01 Nacl 0.9% IV ANTOINETTE PRN Hypotension Insulin Human Lispro 0 unit 11/21/18 07:30 11/29/18 08:35 Humalog SUB-Q 3 unit ACHS [facility] Administration Protocol Isosorbide Mononitrate 30 mg 11/21/18 10:00 11/29/18 09:31 Imdur PO 30 mg QDAY [facility] Administration Lisinopril 5 mg 11/21/18 10:00 11/29/18 09:32 Zestril PO 5 mg DAILY [facility] Administration Miscellaneous Medication 630 mg 11/21/18 08:00 Ferric Citrate PO TIDWM [facility] Mupirocin 1 applic 11/21/18 08:00 11/29/18 08:35 Bactroban 2% TP 1 applic TID [facility] Administration Naloxone HCl 0.1 mg 11/21/18 06:16 Narcan 0.4 Mg/1 Ml IV Q2MIN PRN Res Rate </= 8 or 02 SAT < 92% Ondansetron HCl 4 mg 11/21/18 06:16 11/28/18 19:59 Zofran IV 4 mg Q8H PRN Administration Nausea And Vomiting Oxycodone/Acetaminophen 1 tab 11/21/18 06:16 11/28/18 09:04 Percocet 5/325 PO 1 tab Q6H PRN Administration Pain, Moderate (4-6) Pantoprazole Sodium 40 mg 11/21/18 10:00 11/29/18 09:31 Protonix PO 40 mg BID [facility] Administration Sodium Chloride 10 ml 11/21/18 10:00 11/29/18 09:31 Sodium Chloride Flush Syringe 10 Ml IV 10 ml BID [facility] Administration Sodium Chloride 10 ml 11/21/18 06:16 Sodium Chloride Flush Syringe 10 Ml IV PRN PRN LINE FLUSH
--- NOTE | 2018-11-29 10:26 | Discharge Summary ---
Providers - Providers Date of Admission: 11/21/18 06:16 Attending physician: MARILYN HASSAN MD 11/21/18 01:46 Consult to Physician [CONS] Routine Comment: Dr. Garvey spoke with Dr. Monroe @ 0144 Consulting Provider: KOKI MONROE Physician Instructions: Reason For Exam: dialysis 11/21/18 06:42 Consult to Wound/ET Nurse [CONS] Routine Reason For Exam: wound eval 11/21/18 06:43 Consult to Physician [CONS] Routine Comment: vascular surgery. [facility] Consulting Provider: RAZA BUITRAGO Physician Instructions: Pt had an appt this tuesday but has severe RLE pain Reason For Exam: limb ischemia 11/21/18 06:45 Occupational Therapy Evaluate and Treat [CONS] Routine Comment: Reason For Exam: Debility Physical Therapy Evaluation and Treat [CONS] Routine Comment: Reason For Exam: Debility and inability to ambulate 11/21/18 08:23 Consult to Physician [CONS] Routine Comment: called office/serafin Consulting Provider: ARLEN TATUM Physician Instructions: Reason For Exam: RLE leg ischemia 11/22/18 13:17 Consult to Dietitian/Nutrition [CONS] Routine Physician Instructions: Reason For Exam: Reason for Consult: Malnutrition 11/25/18 13:36 PICC Line Insertion [Consult to PICC Line RN] [CONS] Routine Reason For Exam: Need IV access Type Line:: PICC 11/28/18 11:49 Consult to Physician [CONS] Routine Comment: Consulting Provider: LIYAH MEEK Physician Instructions: Reason For Exam: Right lower ext cellulitis [facility] Reason for admission: Ischemia Condition: Stable Hospital course: Patient is a 68 yo AA woman with a history of HTN, ESRD on TTS, PVD, IDDM, GERD and AOCD who presented to [facility] ED with RLE rest pains. Acute Right leg limb ischemia s/p Aortogram Impression: 1) Aortogram and right lower extremity angiography demonstrating multifocal 80-90% stenosis within the proximal and mid SFA with complete occlusion of the mid to distal SFA and reconstitution of the popliteal artery and distal SFA through collaterals. There is single vessel runoff to the foot throughout peroneal artery. 2) Attempted revascularization from both an antegrade and pedal approach as described without success. 3) The patient will need to be rescheduled for revascularization procedure on her right leg with anesthesia from both an antegrade and popliteal artery approach. Patient at high risk for amputation, continue IV Heparin drip with close monitoring and analgesic support via IV Dilaudid. Patient underwent revascularization with noted warmth to the right lower extremity for revascularization. Some gangrene is still noted around her ankle area with mild erythema. No further complaints of pain at this time. Heparin drip has been discontinued. She is now on Plavix. Extensive discussion was had with the patient about need to be compliant she is high risk for limb loss and will follow with Dr. Jones 2 weeks from discharge. Diabetic foot nonhealing ulcer: treated with abx Decubitus ulcer at least stage 3, poa: consulted Wound care, ID added, Started on vanco. HTN: continue antihypertensives ESRD on Hemodialysis TTS: Nephrology is following, monitor bmp closely, renal diet Anemia of chronic disease: monitored cbc closely and was stable Severe Protien calorie Malnutrition, poa: PAD- Prox Superficial Femoral Artery associated with critical limb ischemia, see above: Vascular Surgeon is managing, s/p Re-vascularization procedure of her right leg 11/27/18 with good result. d/w Dr. Jones, Started on Plavix Chronic edema of left upper extremity: The patient has had multiple workup with no find is a student reason why. This also houses her AV graft. Disposition: [id number]/TX-03 SNF W KIP CERT Time spent for discharge: 35 MIN Core Measure Documentation - Palliative Care Palliative Care/ Comfort Measures: Not Applicable - Core Measures Any of the following diagnoses?: none Exam - Physical Exam Narrative exam: Gen: thin cachetic chronically ill appearing and disable, NAD, Awake, Alert, Orientated, bmi 18.9 HEENT: NCAT, EOMI, PERRL, OP dried blood on lip, stimata of old bleeding gums Neck: supple, no adenopathy, no thyromegaly, no JVD CVS/Heart: RRR, normal S1S2, pulses present bilaterally Chest/Lungs: CTA B, Symmetrical chest expansion, good air entry bilaterally GI/Abdomen: soft, NTND, good bowel sounds, no guarding or rebound /Bladder: no suprapubic tenderness, no CVA or paraspinal tenderness Extermity/Skin: top of right foot ulcer, pAD leg changes, Left upper ext edema- chronic and POA, AV graft , lupper ext MSK: FROM x 4 Neuro: CN 2-12 grossly intact, no new focal deficits Psych: calm - Constitutional Vitals: Temp Pulse Resp BP Pulse Ox 99 F 92 H 20 140/55 100 11/29/18 08:43 11/29/18 09:32 11/29/18 10:00 11/29/18 09:32 11/29/18 10:00 Plan Activity: advance as tolerated, fall precautions (``) Diet: renal Special Instructions: record daily BP diary Follow up with: MODESTO ESTRADA MD [Staff Physician] - 7 Days JULITO ROSARIO MD [Staff Physician] - 7 Days [place] PHYLLIS CHAU MD [Primary Care Provider] - 7 Days CHERY RODRIGES MD [Staff Physician] - 14 Days Prescriptions: Doxycycline Hyclate [Doxycycline Hyclate TAB] 100 mg PO Q12HR 5 Days #10 tab cephALEXin [Keflex] 250 mg PO BID 5 Days #10 capsule oxyCODONE /ACETAMINOPHEN [Percocet 5/325 mg] 1 tab PO Q6H PRN #10 tablet PRN Reason: Pain, Moderate (4-6) Clopidogrel [Plavix] 75 mg PO QDAY #30 tablet
--- NOTE | 2018-11-29 13:50 | Progress Note ---
Assessment and Plan Assessment and plan: Patient is a 68 yo AA woman with a history of HTN, ESRD on TTS, PVD, IDDM, GERD and AOCD who presented to [facility] ED with RLE rest pains. Acute Right leg limb ischemia s/p Aortogram Impression: 1) Aortogram and right lower extremity angiography demonstrating multifocal 80-90% stenosis within the proximal and mid SFA with complete occlusion of the mid to distal SFA and reconstitution of the popliteal artery and distal SFA through collaterals. There is single vessel runoff to the foot throughout peroneal artery. 2) Attempted revascularization from both an antegrade and pedal approach as described without success. 3) The patient will need to be rescheduled for revascularization procedure on her right leg with anesthesia from both an antegrade and popliteal artery approach. Patient at high risk for amputation, continue IV Heparin drip with close monitoring and analgesic support via IV Dilaudid. Patient underwent revascularization with noted warmth to the right lower extremity for revascularization. Some gangrene is still noted around her ankle area with mild erythema. No further complaints of pain at this time. Heparin drip has been discontinued. She is now on Plavix. Extensive discussion was had with the patient about need to be compliant she is high risk for limb loss and will follow with Dr. Jones 2 weeks from discharge. Diabetic foot nonhealing ulcer: treat with abx Decubitus ulcer at least stage 3, poa: consulted Wound care, Consult ID, Started on vanco. Patient will benefit from Rehab placement No evidence of Osteomylitis at this. Per ID: If remains afebrile for 24 hours, can discharge on Doxycycline 100mg PO BID and Keflex 250mg PO BID for 5 days. 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 d/w Dr. Jones, Started on Plavix Chronic edema of left upper extremity: The patient has had multiple workup with no find is a student reason why. This also houses her AV graft. DVT and GI prophylaxis Plan of care discussed with the patient in detail History Interval history: Patient Seen and examined continues to improve. Did have one episode of fever of 101 today. No other adverse event reported Hospitalist Physical - Physical exam Narrative exam: Gen: thin cachetic chronically ill appearing and disable, NAD, Awake, Alert, Orientated, bmi 18.9 HEENT: NCAT, EOMI, PERRL, OP dried blood on lip, stimata of old bleeding gums Neck: supple, no adenopathy, no thyromegaly, no JVD CVS/Heart: RRR, normal S1S2, pulses present bilaterally Chest/Lungs: CTA B, Symmetrical chest expansion, good air entry bilaterally GI/Abdomen: soft, NTND, good bowel sounds, no guarding or rebound /Bladder: no suprapubic tenderness, no CVA or paraspinal tenderness Extermity/Skin: top of right foot ulcer, pAD leg changes, Left upper ext edema- chronic and POA, AV graft , lupper ext MSK: FROM x 4 Neuro: CN 2-12 grossly intact, no new focal deficits Psych: calm - Constitutional Vitals: Temp Pulse Resp BP Pulse Ox 99 F 92 H 20 140/55 100 11/29/18 08:43 11/29/18 09:32 11/29/18 10:00 11/29/18 09:32 11/29/18 10:00 General appearance: Present: no acute distress Results - Labs CBC & Chem 7: 11/29/18 03:54 11/29/18 03:54 Labs: Laboratory Last Values WBC 5.8 K/mm3 (4.5-11.0) 11/29/18 03:54 RBC 3.29 M/mm3 (3.65-5.03) L 11/29/18 03:54 Hgb 8.4 gm/dl (10.1-14.3) L 11/29/18 03:54 Hct 26.9 % (30.3-42.9) L 11/29/18 03:54 MCV 82 fl (79-97) 11/29/18 03:54 MCH 26 pg (28-32) L 11/29/18 03:54 MCHC 31 % (30-34) 11/29/18 03:54 RDW 19.4 % (13.2-15.2) H 11/29/18 03:54 Plt Count 272 K/mm3 (140-440) 11/29/18 03:54 Lymph % (Auto) 10.4 % (13.4-35.0) L 11/20/18 23:30 [place] % (Auto) 8.1 % (0.0-7.3) H 11/20/18 23:30 Eos % (Auto) 3.3 % (0.0-4.3) 11/20/18 23:30 Baso % (Auto) 1.1 % (0.0-1.8) 11/20/18 23:30 Lymph # 0.8 K/mm3 (1.2-5.4) L 11/20/18 23:30 [place] # 0.6 K/mm3 (0.0-0.8) 11/20/18 23:30 Eos # 0.3 K/mm3 (0.0-0.4) 11/20/18 23:30 Baso # 0.1 K/mm3 (0.0-0.1) 11/20/18 23:30 Seg Neutrophils % 77.1 % (40.0-70.0) H 11/20/18 23:30 Seg Neutrophils # 6.0 K/mm3 (1.8-7.7) 11/20/18 23:30 PT 14.5 Sec. (12.2-14.9) 11/21/18 06:59 INR 1.16 (0.87-1.13) H 11/21/18 06:59 APTT 45.8 Sec. (24.2-36.6) H 11/21/18 06:59 180 (74-137) H 11/27/18 15:33 Heparin Anti-Xa Level 0.27 U.I./ml (0.3-0.7) L 11/27/18 05:15 Sodium 138 mmol/L (137-145) 11/29/18 03:54 Potassium 3.3 mmol/L (3.6-5.0) L 11/29/18 03:54 Chloride 96.1 mmol/L (98-107) L 11/29/18 03:54 Carbon Dioxide 29 mmol/L (22-30) D 11/29/18 03:54 16 mmol/L 11/29/18 03:54 BUN 14 mg/dL (7-17) 11/29/18 03:54 3.2 mg/dL (0.7-1.2) H D 11/29/18 03:54 Estimated GFR 17 ml/min 11/29/18 03:54 4 % 11/29/18 03:54 Glucose 153 mg/dL (65-100) H 11/29/18 03:54 POC Glucose 244 (70-105) H 11/29/18 07:13 Calcium 9.3 mg/dL (8.4-10.2) 11/29/18 03:54 0.20 mg/dL (0.1-1.2) 11/22/18 04:18 AST 21 units/L (5-40) 11/22/18 04:18 ALT 9 units/L (7-56) 11/22/18 04:18 96 units/L (35-129) 11/22/18 04:18 6.2 g/dL (6.3-8.2) L 11/22/18 04:18 3.3 g/dL (3.9-5) L 11/22/18 04:18 1.1 % 11/22/18 04:18 Hepatitis A IgM Ab Non-reactive (NonReactive) 11/21/18 16:28 Hep Bs Antigen Non-reactive (Negative) 11/21/18 16:28 Hep B Core IgM Ab Non-reactive (NonReactive) 11/21/18 16:28 Non-reactive (NonReactive) 11/21/18 16:28 Blood Type O POSITIVE 11/27/18 10:14 Antibody Screen Negative 11/27/18 10:14 Active Medications - Current Medications Current Medications: Generic Name Dose Route Start Last Admin Trade Name Lucas PRN Reason Stop Dose Admin Acetaminophen 650 mg 11/21/18 06:16 11/27/18 21:49 Tylenol PO 650 mg Q4H PRN Administration Pain MILD(1-3)/Fever >100.5/PEREZ Albumin Human 25 gm 11/21/18 09:01 11/25/18 11:46 Alburx 25% (Albumin) IV 25 gm ANTOINETTE PRN Administration Hypotension Clonidine HCl 0.1 mg 11/21/18 06:41 Catapres PO TID PRN Blood Pressure Clopidogrel Bisulfate 75 mg 11/28/18 10:00 11/29/18 09:31 Plavix PO 75 mg QDAY CALIXTO Administration Dextrose 50 ml 11/21/18 06:16 D50w (25gm) Syringe IV PRN PRN Hypoglycemia Epoetin Khurram 10,000 unit 11/21/18 09:01 11/28/18 15:30 Procrit IV 10,000 unit ANTOINETTE PRN Administration hemodialysis Heparin Sodium (Porcine) 2,000 unit 11/21/18 09:01 11/25/18 11:12 Heparin 10,000 Units/10 Ml IV 2,000 unit ANTOINETTE PRN Administration hemodialysis Hydromorphone HCl 1 mg 11/22/18 13:09 11/28/18 19:59 Dilaudid IV 1 mg Q4H PRN Administration Pain , Severe (7-10) Sodium Chloride 100 mls @ 999 mls/hr 11/21/18 09:01 Nacl 0.9% IV ANTOINETTE PRN Hypotension Insulin Human Lispro 0 unit 11/21/18 07:30 11/29/18 11:45 Humalog SUB-Q Not Given ACHS [facility] Protocol Isosorbide Mononitrate 30 mg 11/21/18 10:00 11/29/18 09:31 Imdur PO 30 mg QDAY CALIXTO Administration Lisinopril 5 mg 11/21/18 10:00 11/29/18 09:32 Zestril PO 5 mg DAILY [facility] Administration Miscellaneous Medication 630 mg 11/21/18 08:00 Ferric Citrate PO TIDWM [facility] Mupirocin 1 applic 11/21/18 08:00 11/29/18 08:35 Bactroban 2% TP 1 applic TID CALIXTO Administration Naloxone HCl 0.1 mg 11/21/18 06:16 Narcan 0.4 Mg/1 Ml IV Q2MIN PRN Res Rate </= 8 or 02 SAT < 92% Ondansetron HCl 4 mg 11/21/18 06:16 11/28/18 19:59 Zofran IV 4 mg Q8H PRN Administration Nausea And Vomiting Oxycodone/Acetaminophen 1 tab 11/21/18 06:16 11/28/18 09:04 Percocet 5/325 PO 1 tab Q6H PRN Administration Pain, Moderate (4-6) Pantoprazole Sodium 40 mg 11/21/18 10:00 11/29/18 09:31 Protonix PO 40 mg BID CALIXTO Administration Sodium Chloride 10 ml 11/21/18 10:00 11/29/18 09:31 Sodium Chloride Flush Syringe 10 Ml IV 10 ml BID CALIXTO Administration Sodium Chloride 10 ml 11/21/18 06:16 Sodium Chloride Flush Syringe 10 Ml IV PRN PRN LINE FLUSH Nutrition/Malnutrition Assess - Dietary Evaluation Nutrition/Malnutrition Findings: Nutrition Notes Start: 11/22/18 17:49 Freq: Status: Active Protocol: Document 11/27/18 14:34 RM (Rec: 11/27/18 14:43 RM [id number]) Nutrition Notes Initial or Follow up Reassessment Current Diagnosis Diabetes,Hypertension Other Pertinent Diagnosis ESRD on HD (T/R/S), PVD, diabetic ulcer Current Diet NPO Labs/Tests Reviewed Pertinent Medications Reviewed Height 5 ft 2 in Weight 46.8 kg Kimberly Body Weight (kg) 50.00 BMI 18.8 Subjective/Other Information NPO in place for R leg revascularization. Pt stated that her preferences are not being honored and that she did not eat lunch and only ate half of dinner yesterday. 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 Noted one half drunk and 3 unopened Nepro at bedside. Pt stated that sometime she does not drink the Nepro d/t pain. Burn Absent Trauma Absent #2 Nutrition Diagnosis Underweight Diagnosis Progress(for reassessment Continues documentation) #1 Nutrition Diagnosis Inadequate oral intake Diagnosis Progress(for reassessment Continues documentation) Is patient on ventilator? No Is Patient Ambulatory and/or Out of Bed No REE-([facility]-confined to bed) 1135.656 Kcal/Kg value to use for calculation 31 Approximate Energy Requirements Using 1451 kcal/Kg Calculation Used for Recommendations [facility] Additional Notes Protein Needs: 55-69g (1.2-1. 5g/kg) Fluid Needs: 1 ml/kcal Nutrition Intervention Change Diet Order: Advance diet when medically able Add Supplement/Snack (indicate name/kcal Nepro Vanilla, Butter Pecan 1 /protein ) daily once diet advanced Provides kCal: 425 Provides Protein (gm) 19 Goal #1 Diet advancement Anticipated Discharge Needs: Renal diet Follow-Up By: 11/29/18 Additional Comments Follow for diet advancement, PO and ONS intakes - Attestation Statement I have reviewed and agreed w/ Malnutrition eval & tx plan: Yes
[2018-11-29] MEDS: PERCOCET 5/325 PO PRN (15:10)
[2018-11-29] MEDS: TYLENOL PO PRN (20:43)
[2018-11-30] MEDS: BACTROBAN 2% TP SCH ×2 (08:00→14:59)
[2018-11-30] MEDS: HumaLOG SUB-Q SCH ×2 (08:33→12:00)
--- NOTE | 2018-11-30 08:58 | Progress Note ---
Assessment and Plan Cultures: 11/26/2018 blood culture: No growth A/P: 68-year-old female with hypertension, ESRD on hemodialysis every Tuesday, and Tuesday, peripheral vascular disease, diabetes mellitus, gastroesophageal reflux disease was admitted to the hospital on 11/21/2018 after she presented to the emergency room with acute RLE ischemia: 1) Right lower extremity acute pain and cellulitis: In the setting of revascularization for acute limb ischemia. X-ray negative for osteomyelitis. No leukocytosis. Scant drainage + with tenderness. Continue vancomycin renally adjusted. 2) ESRD on HD: Renally dose antibiotics. 3) Severe peripheral vascular disease, status post revascularization of her right lower extremity on 11/27/2018. 4) Diabetes mellitus: monitor blood sugars. 5) Fever: Improved. No fever in >24 hours. etiology most likely acute limb ischemia. Recs: Continue vancomycin renally adjusted, D2 Afebrile for > 24 hours, OK to discharge from ID standpoint on Doxycycline 100mg PO BID and Keflex 250mg PO BID for 5 days (prescriptions on the chart) D/W Dr. Price Romero, VERMIN EXTERMINATOR [facility] M: [phone] O:[phone] Subjective Date of service: 11/30/18 Principal diagnosis: PVD with nonhealing ulcer Interval history: Patient seen and examined. Reports no acute distress. Continued right leg tenderness. No fevers. Objective - Exam Narrative Exam: Constitutional: Alert, cooperative. No acute distress Head, Ears, Nose: Normocephalic, atraumatic. External ears, nose normal Eyes: Conjunctivae/corneas clear. No icterus. No ptosis. Neck: Supple, no meningeal signs Oral: dentition fair, no thrush Cardiovascular: S1, S2 normal. 3/6 systolic murmur Respiratory: Good air entry, clear to auscultation bilaterally GI: Soft, non-tender; bowel sounds normal. No peritoneal signs Musculoskeletal: Bilateral lower extremity with dystrophic toenails, right lower extremity with tenderness, scab on the dorsum of the foot with scant serous drainage. Skin: No rash or abscess Hem/Lymphatic: No palpable cervical or supraclavicular nodes. No lymphangitis Psych: Mood ok. Affect normal Neurological: Awake, alert, oriented. No gross abnormality - Constitutional Vitals: Vital Signs Temp Pulse Resp BP Pulse Ox 98.5 F 91 H 20 158/74 98 11/30/18 07:27 11/30/18 07:27 11/30/18 07:27 11/30/18 07:27 11/30/18 07:27 Temperature -Last 24 Hours Temperature 98.5 F Temperature 98.5 F Temperature 98.4 F Temperature 98.0 F - Labs CBC & Chem 7: 11/29/18 03:54 11/29/18 03:54 Labs: Abnormal lab results 11/29/18 Range/Units 21:39 POC Glucose 249 H (70-105)
--- NOTE | 2018-11-30 09:15 | Progress Note ---
Assessment and Plan Impression: * End stage renal disease * Peripheral artery disease * Right leg ulceration * Hypertension * Type II DM * Hx of GI bleed --Colonoscopy: No gross lesions and no blood seen in the colon. Large internal and external hemorrhoids. Inadequate prep --EGD: Duodenum - nodularity biopsied to r/o adenoma. Severe duodenitis of the bulb. Deep cratered pre-pyloric clean based ulcer * Secondary hyperparathyroidism * Anemia secondary to ESRD Plan: * Continue outpatient TTS schedule * UF as tolerated * Anticoagulation as per primary team/vascular surgery * Vascular surgery following * Epogen TIW prn * Continue antiHTN medications * Renal diet * Patient lives alone and apparently her Home situation is poor. Patient needs placement Subjective Date of service: 11/30/18 Principal diagnosis: PVD with nonhealing ulcer Interval history: Patient is comfortable. Denies any shortness of breath. Objective - Vital Signs Vital signs: Vital Signs - 12hr 11/29/18 11/29/18 11/30/18 21:43 22:00 02:27 Temperature 98.5 F Pulse Rate 94 H Respiratory 18 20 18 Rate Blood Pressure 155/54 O2 Sat by Pulse 98 97 Oximetry 11/30/18 07:27 Temperature 98.5 F Pulse Rate 91 H Respiratory 20 Rate Blood Pressure 158/74 O2 Sat by Pulse 98 Oximetry - General Appearance General appearance: chronically ill, frail, other (pleasant -[place] female) EENT: PERRL, mucous membranes moist Neck: no JVD, no thyromegaly, no carotid bruit, supple Respiratory: Present: Clear to Ascultation Cardiology: regular, normal heart rate, S1S2, no murmurs Gastrointestinal: normal, normoactive bowel sounds Integumentary: other (AV fistula left upper arm. Good bruit and thrill. Left upper extremity edematous. Ulceration noted in the dorsum of her right foot) - Lab 11/29/18 03:54 11/29/18 03:54 Most recent lab results Calcium 9.3 mg/dL (8.4-10.2) 11/29/18 03:54 Medications & Allergies - Medications Allergies/Adverse Reactions: Allergies erythromycin base [Erythromycin Base] Allergy (Verified 10/26/18 18:04) Rash PATIENT ASK ME TO REMOVEDMED ON ALLERGY LIST. Home Medications: Home Medications Medication Instructions Recorded Confirmed Last Taken Type Ferric Citrate (Nf) [Auryxia] 630 mg PO TIDWM 09/05/18 11/21/18 11/18/18 History Pantoprazole [Protonix TAB] 40 mg PO BID #60 tablet 10/03/18 11/21/18 10/16/18 20:00 Rx ISOSORBIDE MONOnitrate [Imdur ER] 30 mg PO QDAY #30 tablet 10/04/18 11/21/18 Unknown Rx Lisinopril [Zestril TAB] 5 mg PO DAILY #30 tablet 10/04/18 11/21/18 Unknown Rx cloNIDine [Catapres] 0.1 mg PO TID PRN 10/17/18 11/21/18 Unknown History Mupirocin [Bactroban 2% OINT] 1 applic TP TID #1 tube 10/29/18 11/21/18 Unknown Rx Clopidogrel [Plavix] 75 mg PO QDAY #30 tablet 11/28/18 Unknown Rx Clopidogrel [Plavix] 75 mg PO QDAY tablet 11/29/18 Unknown Rx oxyCODONE /ACETAMINOPHEN [Percocet 1 tab PO Q6H PRN #10 tablet 11/29/18 Unknown Rx 5/325 mg] Active Medications: Generic Name Dose Route Start Last Admin Trade Name Freq PRN Reason Stop Dose Admin Acetaminophen 650 mg 11/21/18 06:16 11/29/18 20:43 Tylenol PO 650 mg Q4H PRN Administration Pain MILD(1-3)/Fever >100.5/PEREZ Albumin Human 25 gm 11/21/18 09:01 11/25/18 11:46 Alburx 25% (Albumin) IV 25 gm ANTOINETTE PRN Administration Hypotension Clonidine HCl 0.1 mg 11/21/18 06:41 Catapres PO TID PRN Blood Pressure Clopidogrel Bisulfate 75 mg 11/28/18 10:00 11/29/18 09:31 Plavix PO 75 mg QDAY CALIXTO Administration Dextrose 50 ml 11/21/18 06:16 D50w (25gm) Syringe IV PRN PRN Hypoglycemia Epoetin Khurram 10,000 unit 11/21/18 09:01 11/28/18 15:30 Procrit IV 10,000 unit ANTOINETTE PRN Administration hemodialysis Heparin Sodium (Porcine) 2,000 unit 11/21/18 09:01 11/25/18 11:12 Heparin 10,000 Units/10 Ml IV 2,000 unit ANTOINETTE PRN Administration hemodialysis Hydromorphone HCl 1 mg 11/22/18 13:09 11/28/18 19:59 Dilaudid IV 1 mg Q4H PRN Administration Pain , Severe (7-10) Sodium Chloride 100 mls @ 999 mls/hr 11/21/18 09:01 Nacl 0.9% IV ANTOINETTE PRN Hypotension Insulin Human Lispro 0 unit 11/21/18 07:30 11/30/18 08:33 Humalog SUB-Q 3 unit ACHS CALIXTO Administration Protocol Isosorbide Mononitrate 30 mg 11/21/18 10:00 11/29/18 09:31 Imdur PO 30 mg QDAY CALIXTO Administration Lisinopril 5 mg 11/21/18 10:00 11/29/18 09:32 Zestril PO 5 mg DAILY CALIXTO Administration Miscellaneous Medication 630 mg 11/21/18 08:00 Ferric Citrate PO TIDWM CALIXTO Mupirocin 1 applic 11/21/18 08:00 11/29/18 20:45 Bactroban 2% TP 1 applic TID CALIXTO Administration Naloxone HCl 0.1 mg 11/21/18 06:16 Narcan 0.4 Mg/1 Ml IV Q2MIN PRN Res Rate </= 8 or 02 SAT < 92% Ondansetron HCl 4 mg 11/21/18 06:16 11/28/18 19:59 Zofran IV 4 mg Q8H PRN Administration Nausea And Vomiting Oxycodone/Acetaminophen 1 tab 11/21/18 06:16 11/29/18 15:10 Percocet 5/325 PO 1 tab Q6H PRN Administration Pain, Moderate (4-6) Pantoprazole Sodium 40 mg 11/21/18 10:00 11/29/18 22:38 Protonix PO 40 mg BID CALIXTO Administration Sodium Chloride 10 ml 11/21/18 10:00 11/29/18 22:39 Sodium Chloride Flush Syringe 10 Ml IV 10 ml BID CALIXTO Administration Sodium Chloride 10 ml 11/21/18 06:16 Sodium Chloride Flush Syringe 10 Ml IV PRN PRN LINE FLUSH
[2018-11-30] MEDS: DILAUDID IV PRN (10:01)
[2018-11-30] MEDS ORDERED: NACL 0.9 (PRIMING MACHINE ONLY DIALYSIS) MC ONE (10:44)
[2018-11-30] MEDS: PROCRIT IV PRN (13:37)
[2018-11-30] MEDS: ZESTRIL PO SCH (14:41)
[2018-11-30] MEDS: PLAVIX PO SCH (14:42)
[2018-11-30] MEDS: IMDUR PO SCH (14:42)
[2018-11-30] MEDS: PROTONIX PO SCH (14:42)
[2018-11-30 14:43] VITALS: BP 137/66
[2018-11-30] MEDS: SODIUM CHLORIDE FLUSH SYRINGE 10 ML IV SCH (15:00)
== END 2018-11-30 15:55 | DRG 252 ==
LOC: ED 22:56 → 2B-ACE 11-21 06:16
PROVIDERS: ADMIT Hospitalist; ATTEND Internal Medicine
PROC: 5A1D70Z Performance of Urinary Filtration, Intermittent, Less than 6 Hours Per Day (ICD-10-PCS; 2018-11-21)
PROC: B41D1ZZ Fluoroscopy of Aorta and Bilateral Lower Extremity Arteries using Low Osmolar Contrast (ICD-10-PCS; 2018-11-22)
PROC: 5A1D70Z Performance of Urinary Filtration, Intermittent, Less than 6 Hours Per Day (ICD-10-PCS; 2018-11-23)
PROC: 02HV33Z Insertion of Infusion Device into Superior Vena Cava, Percutaneous Approach (ICD-10-PCS; 2018-11-25)
PROC: 5A1D70Z Performance of Urinary Filtration, Intermittent, Less than 6 Hours Per Day (ICD-10-PCS; 2018-11-25)
PROC: 047K3D1 Dilation of Right Femoral Artery with Intraluminal Device, using Drug-Coated Balloon, Percutaneous Approach (ICD-10-PCS; principal; 2018-11-27)
PROC: 047M3ZZ Dilation of Right Popliteal Artery, Percutaneous Approach (ICD-10-PCS; 2018-11-27)
PROC: 047T3ZZ Dilation of Right Peroneal Artery, Percutaneous Approach (ICD-10-PCS; 2018-11-27)
PROC: B41D1ZZ Fluoroscopy of Aorta and Bilateral Lower Extremity Arteries using Low Osmolar Contrast (ICD-10-PCS; 2018-11-27)
PROC: 5A1D70Z Performance of Urinary Filtration, Intermittent, Less than 6 Hours Per Day (ICD-10-PCS; 2018-11-28)
PROC: 5A1D70Z Performance of Urinary Filtration, Intermittent, Less than 6 Hours Per Day (ICD-10-PCS; 2018-11-30)
DX: E11.51 Type 2 diabetes mellitus with diabetic peripheral angiopathy without gangrene (principal); L89.93 Pressure ulcer of unspecified site, stage 3; N18.6 End stage renal disease; E46 Unspecified protein-calorie malnutrition; I12.0 Hypertensive chronic kidney disease with stage 5 chronic kidney disease or end stage renal disease; N25.81 Secondary hyperparathyroidism of renal origin; Z68.1 Body mass index [BMI] 19.9 or less, adult; L03.113 Cellulitis of right upper limb; I70.92 Chronic total occlusion of artery of the extremities; I70.0 Atherosclerosis of aorta; D63.1 Anemia in chronic kidney disease; K21.9 Gastro-esophageal reflux disease without esophagitis; L97.511 Non-pressure chronic ulcer of other part of right foot limited to breakdown of skin; I70.235 Atherosclerosis of native arteries of right leg with ulceration of other part of foot; E11.621 Type 2 diabetes mellitus with foot ulcer; Z99.2 Dependence on renal dialysis; Z83.3 Family history of diabetes mellitus; Z82.49 Family history of ischemic heart disease and other diseases of the circulatory system; Z88.1 Allergy status to other antibiotic agents; Z87.11 Personal history of peptic ulcer disease; Z79.84 Long term (current) use of oral hypoglycemic drugs
CPT/HCPCS: 36200; 36415; 37226; 37228; 75625; 75710; 75716; 76937; 80048; 80053; 80074; 82962; 85014; 85018; 85025; 85027; 85049; 85347; 85520; 85610; 85730; 86850; 86900; 86901; 87040; G0378; C1725; C1760; C1769; C1773; C1876; C1884; C1887; C1894; C2623; J0885; J1170; J1200; J1644; J1815; J2250; J2270; J2370; J2405; J2704; J3010; J3370; J7030; J7040; J7050; P9047; Q9967

== ENCOUNTER 2018-12-28 16:13 | Inpatient (IN) | payer MEDICARE ==
[2018-12-28] MEDS ORDERED: ASPIRIN PO ONE (16:54)
--- NOTE | 2018-12-28 16:55 | Emergency Department Report ---
ED Chest Pain HPI - General Chief Complaint: Chest Pain Stated Complaint: CHEST PAIN/HTN Time Seen by Provider: 12/28/18 16:52 Source: patient, EMS Mode of arrival: Stretcher Limitations: Altered Mental Status, Physical Limitation - History of Present Illness Initial Comments: Patient is a 68-year-old female presented to emergency with complaints of chest pain. Patient states her chest pain started today at some time. Patient is not sure what time her chest pain started.. Patient states sees dialysis at some time today but she doesn't recall what time. Patient denies shortness of breath. Patient states the pain is better with rest and worse with exertion. Patient at this time is A&02. MD Complaint: chest pain -: Sudden Onset: during rest Pain Location: substernal, left chest Pain Radiation: none Severity: moderate Severity scale (0 -10): 5 Quality: heaviness Consistency: constant Improves With: rest Worsens With: exertion re: denies: nausea, vomting, diaphoresis, dyspnea Other Symptoms: denies: cough, fever, syncope, rash, acid taste in mouth, leg swelling, palpitations, burping Treatments Prior to Arrival: none Aspirin use within the Past 7 Days: (1) Yes - Related Data On Oral Contraceptives: No Home Medications Medication Instructions Recorded Confirmed Last Taken Ferric Citrate (Nf) [Auryxia] 630 mg PO TIDWM 09/05/18 12/28/18 11/18/18 cloNIDine [Catapres] 0.1 mg PO TID PRN 10/17/18 12/28/18 Unknown Previous Rx's Medication Instructions Recorded Last Taken Type Pantoprazole [Protonix TAB] 40 mg PO BID #60 tablet 10/03/18 10/16/18 20:00 Rx ISOSORBIDE MONOnitrate [Imdur ER] 30 mg PO QDAY #30 tablet 10/04/18 Unknown Rx Lisinopril [Zestril TAB] 5 mg PO DAILY #30 tablet 10/04/18 Unknown Rx Mupirocin [Bactroban 2% OINT] 1 applic TP TID #1 tube 10/29/18 Unknown Rx Clopidogrel [Plavix] 75 mg PO QDAY #30 tablet 11/28/18 Unknown Rx Clopidogrel [Plavix] 75 mg PO QDAY tablet 11/29/18 Unknown Rx oxyCODONE /ACETAMINOPHEN [Percocet 1 tab PO Q6H PRN #10 tablet 11/29/18 Unknown Rx 5/325 mg] Doxycycline Hyclate [Doxycycline 100 mg PO Q12HR 5 Days #10 tab 11/30/18 Unknown Rx Hyclate TAB] Allergies Allergy/AdvReac Type Severity Reaction Status Date / Time erythromycin base Allergy Rash Verified 10/26/18 18:04 [Erythromycin Base] Heart Score - HEART Score History: Highly suspicious EKG: Non-specific Age: > 65 Risk factors: > 3 risk factors or hx of atherosclerotic disease Troponin: < normal limit HEART Score: 7 ED Review of Systems ROS: Stated complaint: CHEST PAIN/HTN Other details as noted in HPI Constitutional: denies: chills, fever Eyes: denies: eye pain, eye discharge, vision change ENT: denies: ear pain, throat pain Respiratory: denies: cough, shortness of breath, wheezing Cardiovascular: chest pain. denies: palpitations Endocrine: no symptoms reported Gastrointestinal: denies: abdominal pain, nausea, diarrhea Genitourinary: denies: urgency, dysuria, discharge Musculoskeletal: denies: back pain, joint swelling, arthralgia Skin: denies: rash, lesions Neurological: denies: headache, weakness, paresthesias Psychiatric: denies: anxiety, depression Hematological/Lymphatic: denies: easy bleeding, easy bruising ED Past Medical Hx - Past Medical History Previous Medical History?: Yes Hx Hypertension: Yes Hx CVA: No Hx Heart Attack/AMI: No Hx Congestive Heart Failure: No Hx Diabetes: Yes Hx Deep Vein Thrombosis: Yes Hx Pulmonary Embolism: No Hx GERD: Yes Hx Liver Disease: No Hx Renal Disease: Yes (HD T,TH,Sat) Hx Sickle Cell Disease: No Hx Arthritis: No Hx Headaches / Migraines: No Hx Seizures: No Hx Kidney Stones: No Hx Psychiatric Treatment: No Hx Asthma: No Hx COPD: No Hx Tuberculosis: No Hx Dementia: No Hx HIV: No Additional medical history: anemia - Surgical History Past Surgical History?: Yes Hx Coronary Stent: No Hx Open Heart Surgery: No Hx Pacemaker: No Hx Internal Defibrillator: No Hx Cholecystectomy: No Hx Appendectomy: No Hx Breast Surgery: No Additional Surgical History: graft left arm - Family History Family history: no significant - Social History Smoking Status: Never Smoker Substance Use Type: None - Medications Home Medications: Home Medications Medication Instructions Recorded Confirmed Last Taken Type Ferric Citrate (Nf) [Auryxia] 630 mg PO TIDWM 09/05/18 12/28/18 11/18/18 History Pantoprazole [Protonix TAB] 40 mg PO BID #60 tablet 10/03/18 12/28/18 10/16/18 20:00 Rx ISOSORBIDE MONOnitrate [Imdur ER] 30 mg PO QDAY #30 tablet 10/04/18 12/28/18 Unknown Rx Lisinopril [Zestril TAB] 5 mg PO DAILY #30 tablet 10/04/18 12/28/18 Unknown Rx cloNIDine [Catapres] 0.1 mg PO TID PRN 10/17/18 12/28/18 Unknown History Mupirocin [Bactroban 2% OINT] 1 applic TP TID #1 tube 10/29/18 12/28/18 Unknown Rx Clopidogrel [Plavix] 75 mg PO QDAY #30 tablet 11/28/18 12/28/18 Unknown Rx Clopidogrel [Plavix] 75 mg PO QDAY tablet 11/29/18 12/28/18 Unknown Rx oxyCODONE /ACETAMINOPHEN [Percocet 1 tab PO Q6H PRN #10 tablet 11/29/18 12/28/18 Unknown Rx 5/325 mg] Doxycycline Hyclate [Doxycycline 100 mg PO Q12HR 5 Days #10 tab 11/30/18 12/28/18 Unknown Rx Hyclate TAB] ED Physical Exam - General Limitations: Altered Mental Status, Physical Limitation General appearance: alert, in no apparent distress - Head Head exam: Present: atraumatic, normocephalic - Eye Eye exam: Present: normal appearance - ENT ENT exam: Present: mucous membranes moist - Neck Neck exam: Present: normal inspection - Respiratory Respiratory exam: Present: normal lung sounds bilaterally. Absent: respiratory distress - Cardiovascular Cardiovascular Exam: Present: regular rate, normal rhythm. Absent: systolic murmur, diastolic murmur, rubs, gallop - GI/Abdominal GI/Abdominal exam: Present: soft, normal bowel sounds - Extremities Exam Extremities exam: Present: normal inspection - Back Exam Back exam: Present: normal inspection - Neurological Exam Neurological exam: Present: alert, altered (A&OX2) - Psychiatric Psychiatric exam: Present: normal affect, normal mood - Skin Skin exam: Present: warm, dry, intact, normal color. Absent: rash ED Course Vital Signs 08/08/19 08/08/19 08/08/19 16:39 19:15 19:30 Temperature 99.1 F 98.3 F Pulse Rate 107 H 107 H 117 H Respiratory 24 22 19 Rate Blood Pressure 176/77 154/68 Blood Pressure 154/68 [Right] O2 Sat by Pulse 98 100 98 Oximetry 12/28/18 12/28/18 12/28/18 20:00 20:31 21:01 Temperature Pulse Rate 104 H 106 H 103 H Respiratory 22 22 22 Rate Blood Pressure 150/73 150/73 148/118 Blood Pressure [Right] O2 Sat by Pulse 98 100 95 Oximetry 12/28/18 12/28/18 12/28/18 21:31 21:41 21:51 Temperature Pulse Rate 100 H 105 H 102 H Respiratory 20 21 21 Rate Blood Pressure 148/118 148/118 148/118 Blood Pressure [Right] O2 Sat by Pulse 96 95 96 Oximetry 12/28/18 12/28/18 22:00 22:11 Temperature Pulse Rate Respiratory 24 Rate Blood Pressure 167/83 167/83 Blood Pressure [Right] O2 Sat by Pulse 97 96 Oximetry - Reevaluation(s) Reevaluation #1: I discussed all results with patient. Patient agrees plan of care and admission. Patient will be admitted to the hospitalist service. 12/28/18 20:39 - Consultations Consultation #1: Hospitalist consulted for admission. Hospitalist to admit patient 12/28/18 20:38 MANDY score - Mandy Score Age > 65: (0) No Aspirin use within the Past 7 Days: (0) No 3 or more CAD Risk Factors: (1) Yes 2 or more Angina events in past 24 hrs: (1) Yes Known CAD with more than 50% Stenosis: (0) No Elevated Cardiac Markers: (1) Yes ST Deviation Greater than 0.5mm: (0) No MANDY Score: 3 ED Medical Decision Making - Lab Data Result diagrams: 12/28/18 23:03 12/28/18 23:03 - EKG Data -: EKG Interpreted by Me EKG shows normal: sinus rhythm, axis, intervals, QRS complexes, ST-T waves Rate: tachycardia - Radiology Data Radiology results: report reviewed, image reviewed interpreted by me: Right-sided pneumonia noted on chest x-ray - Medical Decision Making Patient is a 68-year-old female presents emergency room for chest pain. Due to patient's dementia and the alterations in her mentation, patient is a poor historian. Patient admitted to the hospitalist service. Patient's troponin found to be elevated most likely secondary to end-stage renal disease. Patient's EKG negative. Patient's chest x-ray done and reviewed and shows a right-sided pneumonia. Patient given antibiotics. She given aspirin. - Differential Diagnosis ACS. Chest pain. Pneumonia. Critical Care Time: Yes Critical care attestation.: If time is entered above; I have spent that time in minutes in the direct care of this critically ill patient, excluding procedure time. Critical Care Time: 35 minutes ED Disposition Clinical Impression: Elevated troponin, ESRD (end stage renal disease) on dialysis Pneumonia Qualifiers: Pneumonia type: due to unspecified organism Laterality: right Lung location: lower lobe of lung Qualified Code(s): J18.1 - Lobar pneumonia, unspecified organism Chest pain Qualifiers: Chest pain type: unspecified Qualified Code(s): R07.9 - Chest pain, unspecified Dementia Qualifiers: Dementia type: unspecified type Dementia behavioral disturbance: without behavioral disturbance Qualified Code(s): F03.90 - Unspecified dementia without behavioral disturbance Disposition: [id number] OP ADMIT IP TO THIS HOSP Is pt being admited?: Yes Does the pt Need Aspirin: No Condition: Fair Time of Disposition: 20:38
--- NOTE | 2018-12-28 17:48 | XRay Report ---
CHEST 1 VIEW 12/28/2018 5:26 PM INDICATION / CLINICAL INFORMATION: Chest Pain. COMPARISON: Chest x-ray on 10/14/2018. FINDINGS: SUPPORT DEVICES: Unchanged position of stent in the region of the left brachiocephalic vein. HEART / MEDIASTINUM: Normal heart size. Atherosclerosis in the thoracic aorta. LUNGS / PLEURA: There is a new parenchymal opacity in the medial right lower lobe. No pneumothorax. ADDITIONAL FINDINGS: No significant additional findings. IMPRESSION: 1. New parenchymal opacity in the medial right lower lung, which could reflect aspiration, atelectasi s, or developing pneumonia. Signer Name: León Joe MD Signed: 12/28/2018 5:44 PM Workstation Name: [id number]
[2018-12-28 18:27] LABS: Hematocrit 37.5 % (30.3-42.9); Hemoglobin 11.7 gm/dl (10.1-14.3); Mean Corpuscular HGB Conc 31 % (30-34); Mean Corpuscular Volume 80 fl (79-97); Platelet Count 349 K/mm3 (140-440); Red Blood Count 4.69 M/mm3 (3.65-5.03)
[2018-12-28 18:36] LABS: Red Cell Distribution Width 21.6 % (13.2-15.2)
[2018-12-28] MEDS ORDERED: MAXIPIME/NS 2 GM/100 ML 2 GM/100 ML BAG IV ONE (18:51)
[2018-12-28 18:54] LABS: Albumin 3.1 g/dL (3.9-5); Calcium 9.9 mg/dL (8.4-10.2)
[2018-12-28 19:11] LABS: Anisocytosis 1+; Basophils % (Manual) 0 % (0.0-1.8); Hypochromasia 1+; Total Cells Counted 100
[2018-12-28 19:14] LABS: Chol/HDL Ratio 2.93 %
[2018-12-28] MEDS ORDERED: TYLENOL PO PRN (21:19)
[2018-12-28] MEDS ORDERED: ALUM-MAG HYDROX-SIMETH 200-200-20MG/5ML PO PRN (21:19)
[2018-12-28] MEDS ORDERED: ZOFRAN IV PRN (21:19)
[2018-12-28] MEDS ORDERED: PERCOCET 5/325 PO PRN (21:19)
[2018-12-28] MEDS ORDERED: SODIUM CHLORIDE FLUSH SYRINGE 10 ML IV PRN (21:34)
[2018-12-28] MEDS ORDERED: NITROSTAT SL PRN (21:34)
--- NOTE | 2018-12-28 21:42 | History and Physical Report ---
<REYES QUINTANA - Last Filed: 12/29/18 01:49> History of Present Illness Date of examination: 12/28/18 Date of admission: 12/28/2018 Chief complaint: Chest pain History of present illness: Patient is a 68-year-old female with PMHx of CAD s/p [place], DM type 2, HTN, ESRD on HD, anemia, who presents to the ER with c/o chest pain. Pt states that she was in dialysis today when the chest pain started, she states that it is a pressure like pain located on the left chest area, associated with cough and exertion. Pt states that the pain is worse with coughing, she have been having a non- productive cough for a few days. Pt denies SOB, denies palpitation, denies nausea or vomiting, denies fever and chills. Review of pt's records showed that the was admitted at the hospital on 11/21/2018 and on 11/27/2018 she underwent angioplasty of the left lower extremities and stenting of the right superficial femoral arteries. Chest x-ray showed new parenchymal opacity of the right lower lobe which could represents aspiration, atelectasis or developing pneumonia. Patient was admitted with chest pain and for treatment of HAP pneumonia. Past History Past Medical History: anemia, CAD, diabetes, dialysis, ESRD, hypertension, PVD Past Surgical History: Other (extremities angioplasty, left arm graft) Social history: no significant social history, lives with family Family history: no significant family history Medications and Allergies Allergies Allergy/AdvReac Type Severity Reaction Status Date / Time erythromycin base Allergy Rash Verified 10/26/18 18:04 [Erythromycin Base] Home Medications Medication Instructions Recorded Confirmed Last Taken Type Ferric Citrate (Nf) [Auryxia] 630 mg PO TIDWM 09/05/18 12/28/18 11/18/18 History Pantoprazole [Protonix TAB] 40 mg PO BID #60 tablet 10/03/18 12/28/18 10/16/18 20:00 Rx ISOSORBIDE MONOnitrate [Imdur ER] 30 mg PO QDAY #30 tablet 10/04/18 12/28/18 Unknown Rx Lisinopril [Zestril TAB] 5 mg PO DAILY #30 tablet 10/04/18 12/28/18 Unknown Rx cloNIDine [Catapres] 0.1 mg PO TID PRN 10/17/18 12/28/18 Unknown History Mupirocin [Bactroban 2% OINT] 1 applic TP TID #1 tube 10/29/18 12/28/18 Unknown Rx Clopidogrel [Plavix] 75 mg PO QDAY #30 tablet 11/28/18 12/28/18 Unknown Rx Clopidogrel [Plavix] 75 mg PO QDAY tablet 11/29/18 12/28/18 Unknown Rx oxyCODONE /ACETAMINOPHEN [Percocet 1 tab PO Q6H PRN #10 tablet 11/29/18 12/28/18 Unknown Rx 5/325 mg] Doxycycline Hyclate [Doxycycline 100 mg PO Q12HR 5 Days #10 tab 11/30/18 12/28/18 Unknown Rx Hyclate TAB] Active Meds: Active Medications Acetaminophen (Tylenol) 650 mg PO Q4H PRN PRN Reason: Pain MILD(1-3)/Fever >100.5/PEREZ Al Hydrox/Mg Hydrox/Simethicone (Alum-Mag Hydrox-Simeth [phone]/5ml) 30 ml PO Q4H PRN PRN Reason: Indigestion Aspirin (Ecotrin) 325 mg PO QDAY [facility] Atorvastatin Calcium (Lipitor) 20 mg PO QHS [facility] Famotidine (Pepcid) 20 mg PO BID [facility] Heparin Sodium (Porcine) (Heparin) 5,000 unit SUB-Q Q12HR [facility] Morphine Sulfate (Morphine) 2 mg IV Q4H PRN PRN Reason: Pain, Moderate (4-6) Nitroglycerin (Nitrostat) 0.4 mg SL Q5M PRN PRN Reason: Chest Pain Ondansetron HCl (Zofran) 4 mg IV Q8H PRN PRN Reason: Nausea And Vomiting Oxycodone/Acetaminophen (Percocet 5/325) 1 tab PO Q6H PRN PRN Reason: Pain, Moderate (4-6) Sodium Chloride (Sodium Chloride Flush Syringe 10 Ml) 10 ml IV BID [facility] Sodium Chloride (Sodium Chloride Flush Syringe 10 Ml) 10 ml IV PRN PRN PRN Reason: LINE FLUSH Review of Systems Cardiovascular: chest pain Respiratory: cough Exam - Constitutional Vitals: Temp Pulse Resp BP Pulse Ox 98.3 F 106 H 22 150/73 100 12/28/18 19:15 12/28/18 20:31 12/28/18 20:31 12/28/18 20:31 12/28/18 20:31 General appearance: Present: no acute distress - EENT Eyes: Present: PERRL, EOM intact ENT: hearing intact - Neck Neck: Present: supple - Respiratory Respiratory effort: normal Respiratory: left: diminished - Cardiovascular Heart rate: 108 Rhythm: regularly irregular - Extremities Extremity abnormal: cyanosis, ulceration, tenderness Peripheral Pulses: within normal limits - Abdominal General gastrointestinal: Present: soft, non-tender, non-distended Female genitourinary: Present: deferred - Rectal Rectal Exam: deferred - Integumentary Integumentary: Present: clear - Musculoskeletal Musculoskeletal: strength equal bilaterally - Psychiatric Psychiatric: appropriate mood/affect - Neurologic Neurologic: moves all extremities Results - Labs CBC & Chem 7: 12/28/18 23:03 12/28/18 23:03 Labs: Laboratory Last Values WBC 9.9 K/mm3 (4.5-11.0) 12/28/18 18:02 RBC 4.69 M/mm3 (3.65-5.03) 12/28/18 18:02 Hgb 11.7 gm/dl (10.1-14.3) 12/28/18 18:02 Hct 37.5 % (30.3-42.9) 12/28/18 18:02 MCV 80 fl (79-97) 12/28/18 18:02 MCH 25 pg (28-32) L 12/28/18 18:02 MCHC 31 % (30-34) 12/28/18 18:02 RDW 21.6 % (13.2-15.2) H 12/28/18 18:02 Plt Count 349 K/mm3 (140-440) 12/28/18 18:02 Add Manual Diff Complete 12/28/18 18:02 Total Counted 100 12/28/18 18:02 Seg Neuts % (Manual) 85.0 % (40.0-70.0) H 12/28/18 18:02 0 % 12/28/18 18:02 6.0 % (13.4-35.0) L 12/28/18 18:02 Reactive Lymphs % (Man) 0 % 12/28/18 18:02 7.0 % (0.0-7.3) 12/28/18 18:02 2.0 % (0.0-4.3) 12/28/18 18:02 0 % (0.0-1.8) 12/28/18 18:02 0 % 12/28/18 18:02 0 % 12/28/18 18:02 0 % 12/28/18 18:02 0 % 12/28/18 18:02 Nucleated RBC % Not Reportable 12/28/18 18:02 Seg Neutrophils # Man 8.4 K/mm3 (1.8-7.7) H 12/28/18 18:02 Band Neutrophils # 0.0 K/mm3 12/28/18 18:02 0.6 K/mm3 (1.2-5.4) L 12/28/18 18:02 Abs React Lymphs (Man) 0.0 K/mm3 12/28/18 18:02 0.7 K/mm3 (0.0-0.8) 12/28/18 18:02 0.2 K/mm3 (0.0-0.4) 12/28/18 18:02 0.0 K/mm3 (0.0-0.1) 12/28/18 18:02 0.0 K/mm3 12/28/18 18:02 0.0 K/mm3 12/28/18 18:02 0.0 K/mm3 12/28/18 18:02 Blast Cells # 0.0 K/mm3 12/28/18 18:02 WBC Morphology Not Reportable 12/28/18 18:02 Hypersegmented Neuts Not Reportable 12/28/18 18:02 Hyposegmented Neuts Not Reportable 12/28/18 18:02 Hypogranular Neuts Not Reportable 12/28/18 18:02 Not Reportable 12/28/18 18:02 Not Reportable 12/28/18 18:02 Not Reportable 12/28/18 18:02 Not Reportable 12/28/18 18:02 Not Reportable 12/28/18 18:02 Not Reportable 12/28/18 18:02 Not Reportable 12/28/18 18:02 Not Reportable 12/28/18 18:02 Plt Clumps, EDTA Not Reportable 12/28/18 18:02 Not Reportable 12/28/18 18:02 Not Reportable 12/28/18 18:02 Not Reportable 12/28/18 18:02 Plt Morphology Comment Not Reportable 12/28/18 18:02 RBC Morphology Not Reportable 12/28/18 18:02 Dimorphic RBCs Not Reportable 12/28/18 18:02 Not Reportable 12/28/18 18:02 1+ 12/28/18 18:02 Not Reportable 12/28/18 18:02 1+ 12/28/18 18:02 Not Reportable 12/28/18 18:02 Not Reportable 12/28/18 18:02 Not Reportable 12/28/18 18:02 Not Reportable 12/28/18 18:02 Not Reportable 12/28/18 18:02 Not Reportable 12/28/18 18:02 Not Reportable 12/28/18 18:02 Not Reportable 12/28/18 18:02 Not Reportable 12/28/18 18:02 Not Reportable 12/28/18 18:02 Not Reportable 12/28/18 18:02 Not Reportable 12/28/18 18:02 Not Reportable 12/28/18 18:02 Not Reportable 12/28/18 18:02 Not Reportable 12/28/18 18:02 Acanthocytes (Spur) Not Reportable 12/28/18 18:02 Rouleaux Not Reportable 12/28/18 18:02 Not Reportable 12/28/18 18:02 Not Reportable 12/28/18 18:02 Not Reportable 12/28/18 18:02 Not Reportable 12/28/18 18:02 Hem Pathologist Commnt No 12/28/18 18:02 Sodium 137 mmol/L (137-145) 12/28/18 18:02 Potassium 3.4 mmol/L (3.6-5.0) L 12/28/18 18:02 Chloride 97.0 mmol/L (98-107) L 12/28/18 18:02 Carbon Dioxide 25 mmol/L (22-30) 12/28/18 18:02 18 mmol/L 12/28/18 18:02 BUN 14 mg/dL (7-17) 12/28/18 18:02 2.7 mg/dL (0.7-1.2) H 12/28/18 18:02 Estimated GFR 21 ml/min 12/28/18 18:02 5 % 12/28/18 18:02 Glucose 163 mg/dL (65-100) H 12/28/18 18:02 Calcium 9.9 mg/dL (8.4-10.2) 12/28/18 18:02 0.30 mg/dL (0.1-1.2) 12/28/18 18:02 AST 15 units/L (5-40) 12/28/18 18:02 ALT 7 units/L (7-56) 12/28/18 18:02 110 units/L (35-129) 12/28/18 18:02 0.300 ng/mL (0.00-0.029) H* 12/28/18 18:02 7.7 g/dL (6.3-8.2) 12/28/18 18:02 3.1 g/dL (3.9-5) L 12/28/18 18:02 0.7 % 12/28/18 18:02 Triglycerides 186 mg/dL (2-149) H 12/28/18 18:02 Cholesterol 138 mg/dL (50-199) 12/28/18 18:02 67 mg/dL (50-130) 12/28/18 18:02 47 mg/dL (40-59) 12/28/18 18:02 2.93 % 12/28/18 18:02 Assessment and Plan Assessment and plan: 1. Chest pain r/o [place]. 2. Elevated Troponin 3. Acute pneumonia (HAP) 4. DM type 2 (diet controlled) 5. PVD/RLE great toe necrosis (s/p angioplasty) 6. H/o DVT 7. Accelerated HTN 8. ESRD on HD 9. Anemia Plan: Admit to [facility] for chest pain Continue CE Q6hr x2 more Nitro PRN for chest pain Repeat EKG with chest pain Morphine PRN for chest pain Resume home meds Start HAP protocol with Ceftrioxone and Vanco Pharm[facility] to dose Vanco cough suppressant PRN Nebulizer treatment PRN for SOB No DVT prophylaxis pt is on Plavix Pt's condition and plan or care d/w Dr Dean Advance Directives: Yes VTE prophylaxis?: Chemical Plan of care discussed with patient/family: Yes <LINH DEAN - Last Filed: 12/29/18 06:26> History of Present Illness Date of admission: 12/28/18 21:19 Medications and Allergies Active Meds: Active Medications Acetaminophen (Tylenol) 650 mg PO Q4H PRN PRN Reason: Pain MILD(1-3)/Fever >100.5/PEREZ Al Hydrox/Mg Hydrox/Simethicone (Alum-Mag Hydrox-Simeth [phone]/5ml) 30 ml PO Q4H PRN PRN Reason: Indigestion Aspirin (Ecotrin) 325 mg PO QDAY [facility] Atorvastatin Calcium (Lipitor) 20 mg PO QHS [facility] Last Admin: 12/28/18 23:35 Dose: 20 mg Documented by: Clonidine HCl (Catapres) 0.1 mg PO TID PRN PRN Reason: Blood Pressure Last Admin: 12/29/18 05:29 Dose: 0.1 mg Documented by: Clopidogrel Bisulfate (Plavix) 75 mg PO QDAY [facility] Famotidine (Pepcid) 20 mg PO BID [facility] Last Admin: 12/28/18 23:34 Dose: 20 mg Documented by: Heparin Sodium (Porcine) (Heparin) 5,000 unit SUB-Q Q12HR [facility] Last Admin: 12/28/18 23:35 Dose: 5,000 unit Documented by: Piperacillin Sod/Tazobactam Sod (Zosyn/Ns 3.375gm/50ml) 3.375 gm in 50 mls @ 100 mls/hr IV Q8HR [facility] Isosorbide Mononitrate (Imdur) 30 mg PO QDAY [facility] Levofloxacin (Levaquin) 750 mg PO QDAY [facility] Lisinopril (Zestril) 5 mg PO QDAY [facility] Miscellaneous Medication (Ferric Citrate) 630 mg PO TIDWM [facility] Morphine Sulfate (Morphine) 2 mg IV Q4H PRN PRN Reason: Pain, Moderate (4-6) Mupirocin (Bactroban 2%) 1 applic TP TID [facility] Nitroglycerin (Nitrostat) 0.4 mg SL Q5M PRN PRN Reason: Chest Pain Ondansetron HCl (Zofran) 4 mg IV Q8H PRN PRN Reason: Nausea And Vomiting Oxycodone/Acetaminophen (Percocet 5/325) 1 tab PO Q6H PRN PRN Reason: Pain, Moderate (4-6) Pantoprazole Sodium (Protonix) 40 mg PO BID [facility] Sodium Chloride (Sodium Chloride Flush Syringe 10 Ml) 10 ml IV BID [facility] Last Admin: 12/28/18 23:53 Dose: 10 ml Documented by: Sodium Chloride (Sodium Chloride Flush Syringe 10 Ml) 10 ml IV PRN PRN PRN Reason: LINE FLUSH Exam - Constitutional Vitals: Temp Pulse Resp BP Pulse Ox 99.0 F 92 H 18 171/79 99 12/29/18 03:35 12/29/18 05:29 12/29/18 03:35 12/29/18 05:29 12/29/18 03:35 Results - Labs CBC & Chem 7: 12/28/18 23:03 12/28/18 23:03 Labs: Laboratory Last Values WBC 7.3 K/mm3 (4.5-11.0) 12/28/18 23:03 RBC 4.40 M/mm3 (3.65-5.03) 12/28/18 23:03 Hgb 10.8 gm/dl (10.1-14.3) 12/28/18 23:03 Hct 35.7 % (30.3-42.9) 12/28/18 23:03 MCV 81 fl (79-97) 12/28/18 23:03 MCH 25 pg (28-32) L 12/28/18 23:03 MCHC 30 % (30-34) 12/28/18 23:03 RDW 21.3 % (13.2-15.2) H 12/28/18 23:03 Plt Count 328 K/mm3 (140-440) 12/28/18 23:03 Lymph % (Auto) 7.5 % (13.4-35.0) L 12/28/18 23:03 [place] % (Auto) 8.3 % (0.0-7.3) H 12/28/18 23:03 Eos % (Auto) 1.4 % (0.0-4.3) 12/28/18 23:03 Baso % (Auto) 0.8 % (0.0-1.8) 12/28/18 23:03 Lymph # 0.6 K/mm3 (1.2-5.4) L 12/28/18 23:03 [place] # 0.6 K/mm3 (0.0-0.8) 12/28/18 23:03 Eos # 0.1 K/mm3 (0.0-0.4) 12/28/18 23:03 Baso # 0.1 K/mm3 (0.0-0.1) 12/28/18 23:03 Add Manual Diff Complete 12/28/18 18:02 Total Counted 100 12/28/18 18:02 Seg Neutrophils % 82.0 % (40.0-70.0) H 12/28/18 23:03 Seg Neuts % (Manual) 85.0 % (40.0-70.0) H 12/28/18 18:02 0 % 12/28/18 18:02 6.0 % (13.4-35.0) L 12/28/18 18:02 Reactive Lymphs % (Man) 0 % 12/28/18 18:02 7.0 % (0.0-7.3) 12/28/18 18:02 2.0 % (0.0-4.3) 12/28/18 18:02 0 % (0.0-1.8) 12/28/18 18:02 0 % 12/28/18 18:02 0 % 12/28/18 18:02 0 % 12/28/18 18:02 0 % 12/28/18 18:02 Nucleated RBC % Not Reportable 12/28/18 18:02 Seg Neutrophils # 6.0 K/mm3 (1.8-7.7) 12/28/18 23:03 Seg Neutrophils # Man 8.4 K/mm3 (1.8-7.7) H 12/28/18 18:02 Band Neutrophils # 0.0 K/mm3 12/28/18 18:02 0.6 K/mm3 (1.2-5.4) L 12/28/18 18:02 Abs React Lymphs (Man) 0.0 K/mm3 12/28/18 18:02 0.7 K/mm3 (0.0-0.8) 12/28/18 18:02 0.2 K/mm3 (0.0-0.4) 12/28/18 18:02 0.0 K/mm3 (0.0-0.1) 12/28/18 18:02 0.0 K/mm3 12/28/18 18:02 0.0 K/mm3 12/28/18 18:02 0.0 K/mm3 12/28/18 18:02 Blast Cells # 0.0 K/mm3 12/28/18 18:02 WBC Morphology Not Reportable 12/28/18 18:02 Hypersegmented Neuts Not Reportable 12/28/18 18:02 Hyposegmented Neuts Not Reportable 12/28/18 18:02 Hypogranular Neuts Not Reportable 12/28/18 18:02 Not Reportable 12/28/18 18:02 Not Reportable 12/28/18 18:02 Not Reportable 12/28/18 18:02 Not Reportable 12/28/18 18:02 Not Reportable 12/28/18 18:02 Not Reportable 12/28/18 18:02 Not Reportable 12/28/18 18:02 Not Reportable 12/28/18 18:02 Plt Clumps, EDTA Not Reportable 12/28/18 18:02 Not Reportable 12/28/18 18:02 Not Reportable 12/28/18 18:02 Not Reportable 12/28/18 18:02 Plt Morphology Comment Not Reportable 12/28/18 18:02 RBC Morphology Not Reportable 12/28/18 18:02 Dimorphic RBCs Not Reportable 12/28/18 18:02 Not Reportable 12/28/18 18:02 1+ 12/28/18 18:02 Not Reportable 12/28/18 18:02 1+ 12/28/18 18:02 Not Reportable 12/28/18 18:02 Not Reportable 12/28/18 18:02 Not Reportable 12/28/18 18:02 Not Reportable 12/28/18 18:02 Not Reportable 12/28/18 18:02 Not Reportable 12/28/18 18:02 Not Reportable 12/28/18 18:02 Not Reportable 12/28/18 18:02 Not Reportable 12/28/18 18:02 Not Reportable 12/28/18 18:02 Not Reportable 12/28/18 18:02 Not Reportable 12/28/18 18:02 Not Reportable 12/28/18 18:02 Not Reportable 12/28/18 18:02 Not Reportable 12/28/18 18:02 Acanthocytes (Spur) Not Reportable 12/28/18 18:02 Rouleaux Not Reportable 12/28/18 18:02 Not Reportable 12/28/18 18:02 Not Reportable 12/28/18 18:02 Not Reportable 12/28/18 18:02 Not Reportable 12/28/18 18:02 Hem Pathologist Commnt No 12/28/18 18:02 Sodium 138 mmol/L (137-145) 12/28/18 23:03 Potassium 3.4 mmol/L (3.6-5.0) L 12/28/18 23:03 Chloride 98.9 mmol/L (98-107) 12/28/18 23:03 Carbon Dioxide 23 mmol/L (22-30) 12/28/18 23:03 20 mmol/L 12/28/18 23:03 BUN 16 mg/dL (7-17) 12/28/18 23:03 3.1 mg/dL (0.7-1.2) H 12/28/18 23:03 Estimated GFR 18 ml/min 12/28/18 23:03 5 % 12/28/18 23:03 Glucose 116 mg/dL (65-100) H 12/28/18 23:03 Calcium 10.0 mg/dL (8.4-10.2) 12/28/18 23:03 0.30 mg/dL (0.1-1.2) 12/28/18 18:02 AST 15 units/L (5-40) 12/28/18 18:02 ALT 7 units/L (7-56) 12/28/18 18:02 110 units/L (35-129) 12/28/18 18:02 0.329 ng/mL (0.00-0.029) H* 12/29/18 05:09 NT-Pro-B Natriuret Pep 49921 pg/mL (0-900) H 12/28/18 23:03 7.7 g/dL (6.3-8.2) 12/28/18 18:02 3.1 g/dL (3.9-5) L 12/28/18 18:02 0.7 % 12/28/18 18:02 Triglycerides 186 mg/dL (2-149) H 12/28/18 18:02 Cholesterol 138 mg/dL (50-199) 08/08/19 18:02 67 mg/dL (50-130) 12/28/18 18:02 47 mg/dL (40-59) 12/28/18 18:02 2.93 % 12/28/18 18:02 Assessment and Plan Assessment and plan: 68 year old woman with Hypertension, diabetes, ESRD, PVD,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 Labs are significant for right lower lobe pneumonia and elevated troponin. D/c stress test, rocephin and start Zosyn, Levaquin, follow cultures, consult cardiology for chest pain, elevated troponin. Consult renal and vascular for follow up
[2018-12-28] MEDS ORDERED: PEPCID PO SCH (22:00)
[2018-12-28] MEDS ORDERED: VANCOMYCIN 750 MG in NACL 0.9% 500 ML 500 ML IV ONE (23:28)
[2018-12-28] MEDS: HEPARIN SUB-Q SCH (23:35)
[2018-12-28] MEDS ORDERED: VANCOMYCIN PHARMACY TO DOSE IV SCH (23:45)
[2018-12-28] MEDS: SODIUM CHLORIDE FLUSH SYRINGE 10 ML IV SCH (23:53)
[2018-12-28 23:58] LABS: Basophils # (Auto) 0.1 K/mm3 (0.0-0.1); Basophils % (Auto) 0.8 % (0.0-1.8); Eosinophils # (Auto) 0.1 K/mm3 (0.0-0.4); Eosinophils % (Auto) 1.4 % (0.0-4.3); Lymphocytes # (Auto) 0.6 K/mm3 (1.2-5.4); Lymphocytes % (Auto) 7.5 % (13.4-35.0); Mean Corpuscular HGB Conc 30 % (30-34); Mean Corpuscular Volume 81 fl (79-97); Monocytes # (Auto) 0.6 K/mm3 (0.0-0.8); Monocytes % (Auto) 8.3 % (0.0-7.3); Platelet Count 328 K/mm3 (140-440)
[2018-12-29 00:02] LABS: Hematocrit 35.7 % (30.3-42.9); Hemoglobin 10.8 gm/dl (10.1-14.3); Red Cell Distribution Width 21.3 % (13.2-15.2)
[2018-12-29] MEDS: CATAPRES PO PRN (05:29)
[2018-12-29] MEDS ORDERED: MAXIPIME/NS 2 GM/100 ML 2 GM/100 ML BAG IV SCH (06:00)
[2018-12-29] MEDS ORDERED: ZOSYN/NS 3.375GM/50ML 3.375 GM/50 ML BAG IV SCH (06:30)
[2018-12-29 06:51] LABS: Creatine Kinase MB 1.9 ng/mL (0.0-4.0)
[2018-12-29] MEDS ORDERED: LEXISCAN IV NR (06:55)
[2018-12-29] MEDS ORDERED: FERRIC CITRATE 630 MG PO SCH (08:00)
[2018-12-29] MEDS ORDERED: ZESTRIL PO SCH (10:00)
[2018-12-29] MEDS ORDERED: LEVAQUIN PO ONE (10:00)
[2018-12-29] MEDS ORDERED: VIBRAMYCIN PO SCH (10:00)
[2018-12-29] MEDS ORDERED: ROCEPHIN/NS 2 GM/100 ML 2 GM/100 ML BAG IV SCH (10:00)
[2018-12-29] MEDS ORDERED: PEPCID PO SCH (10:00)
--- NOTE | 2018-12-29 10:11 | Consultation ---
History of Present Illness Consult date: 12/29/18 Requesting physician: REYES QUINTANA Consult reason: chest pain, elevated troponin History of present illness: Ms. Dueñas is a 68 y/o female with a history of CAD s/p [place], PVD, ESRD on dialysis, Type 2 diabetes, hypertension, moderate aortic stenosis, moderate mitral stenosis, moderate pulmonary hypertension and anemia who presented to the [facility] ED with chest pressure she experienced during dialysis. She also reports her "pressure was high" during dialysis. She has previously followed with Dr. Christiansen in our office. The patient describes the pressure as left-sided and intermittent. She endorses a cough and vomiting, but denies shortness of breath and dizziness. EKG negative for STEMI; troponins at 0.3 and 0.32, which is chronic elevation for her. She has had several negative stress tests in the past, most recently in 2018. Her primary port captain started her on nitrate therapy and she reports compliance with this regimen. A CXR showed new parenchymal opacity of the RLL suspicous for aspiration, atelectasis or developing pneumonia. She was subsequently started on antibiotics by the primary team. An echo in July 2017 found an EF of 65 to 70 percent, a mildly dilated LA, moderate to severe LVH, moderate aortic & mitral stenosis, mild TR, moderate pulmonary hypertension and a small pericardial effusion. Past History Past Medical History: anemia, CAD, diabetes, dialysis, ESRD, hypertension, PVD Past Surgical History: Other (extremities angioplasty, left arm graft) Social history: no significant social history, lives with family Family history: no significant family history Medications and Allergies Allergies Allergy/AdvReac Type Severity Reaction Status Date / Time erythromycin base Allergy Rash Verified 10/26/18 18:04 [Erythromycin Base] Home Medications Medication Instructions Recorded Confirmed Last Taken Type Ferric Citrate (Nf) [Auryxia] 630 mg PO TIDWM 09/05/18 12/28/18 11/18/18 History Pantoprazole [Protonix TAB] 40 mg PO BID #60 tablet 10/03/18 12/28/18 10/16/18 20:00 Rx ISOSORBIDE MONOnitrate [Imdur ER] 30 mg PO QDAY #30 tablet 10/04/18 12/28/18 Unknown Rx Lisinopril [Zestril TAB] 5 mg PO DAILY #30 tablet 10/04/18 12/28/18 Unknown Rx cloNIDine [Catapres] 0.1 mg PO TID PRN 10/17/18 12/28/18 Unknown History Mupirocin [Bactroban 2% OINT] 1 applic TP TID #1 tube 10/29/18 12/28/18 Unknown Rx Clopidogrel [Plavix] 75 mg PO QDAY #30 tablet 11/28/18 12/28/18 Unknown Rx Clopidogrel [Plavix] 75 mg PO QDAY tablet 11/29/18 12/28/18 Unknown Rx oxyCODONE /ACETAMINOPHEN [Percocet 1 tab PO Q6H PRN #10 tablet 11/29/18 12/28/18 Unknown Rx 5/325 mg] Doxycycline Hyclate [Doxycycline 100 mg PO Q12HR 5 Days #10 tab 11/30/18 12/28/18 Unknown Rx Hyclate TAB] Active Meds: Active Medications Acetaminophen (Tylenol) 650 mg PO Q4H PRN PRN Reason: Pain MILD(1-3)/Fever >100.5/PEREZ Al Hydrox/Mg Hydrox/Simethicone (Alum-Mag Hydrox-Simeth [phone]/5ml) 30 ml PO Q4H PRN PRN Reason: Indigestion Aspirin (Ecotrin) 325 mg PO QDAY [facility] Atorvastatin Calcium (Lipitor) 20 mg PO QHS [facility] Last Admin: 12/28/18 23:35 Dose: 20 mg Documented by: Clonidine HCl (Catapres) 0.1 mg PO TID PRN PRN Reason: Blood Pressure Last Admin: 12/29/18 05:29 Dose: 0.1 mg Documented by: Clopidogrel Bisulfate (Plavix) 75 mg PO QDAY [facility] Heparin Sodium (Porcine) (Heparin) 5,000 unit SUB-Q Q12HR [facility] Last Admin: 12/28/18 23:35 Dose: 5,000 unit Documented by: Piperacillin Sod/Tazobactam Sod (Zosyn/Ns 2.25 Gm/50ml) 2.25 gm in 50 mls @ 100 mls/hr IV Q8HR [facility] Isosorbide Mononitrate (Imdur) 30 mg PO QDAY [facility] Levofloxacin (Levaquin) 500 mg PO Q48HR [facility] Lisinopril (Zestril) 5 mg PO QDAY [facility] Miscellaneous Medication (Ferric Citrate) 630 mg PO TIDWM [facility] Morphine Sulfate (Morphine) 2 mg IV Q4H PRN PRN Reason: Pain, Moderate (4-6) Mupirocin (Bactroban 2%) 1 applic TP TID [facility] Nitroglycerin (Nitrostat) 0.4 mg SL Q5M PRN PRN Reason: Chest Pain Ondansetron HCl (Zofran) 4 mg IV Q8H PRN PRN Reason: Nausea And Vomiting Oxycodone/Acetaminophen (Percocet 5/325) 1 tab PO Q6H PRN PRN Reason: Pain, Moderate (4-6) Pantoprazole Sodium (Protonix) 40 mg PO BID [facility] Sodium Chloride (Sodium Chloride Flush Syringe 10 Ml) 10 ml IV BID [facility] Last Admin: 12/28/18 23:53 Dose: 10 ml Documented by: Sodium Chloride (Sodium Chloride Flush Syringe 10 Ml) 10 ml IV PRN PRN PRN Reason: LINE FLUSH Review of Systems All systems: negative Constitutional: weakness Physical Examination Last Vital Signs Temp 98.6 F 12/29/18 09:07 Pulse 83 12/29/18 09:07 Resp 20 12/29/18 09:07 BP 153/66 12/29/18 09:07 Pulse Ox 98 12/29/18 10:04 General appearance: no acute distress HEENT: Positive: PERRL Neck: Positive: neck supple Cardiac: Positive: Irregularly Regular Lungs: Positive: Normal Exam Neuro: Positive: Weakness Abdomen: Positive: Unremarkable Skin: Positive: Other (AV fistula - LUE) Extremities: Present: edema (Left arm - chronic ) Results 12/28/18 23:03 12/28/18 23:03 Cardiac Enzymes 12/28/18 12/29/18 Range/Units 18:02 05:09 AST 15 (5-40) units/L CK-MB (CK-2) 1.9 (0.0-4.0) ng/mL Lipids 12/28/18 Range/Units 18:02 Triglycerides 186 H (2-149) mg/dL Cholesterol 138 (50-199) mg/dL HDL Cholesterol 47 (40-59) mg/dL Cholesterol/HDL Ratio 2.93 % CBC 12/28/18 12/28/18 Range/Units 18:02 23:03 WBC 9.9 7.3 (4.5-11.0) K/mm3 RBC 4.69 4.40 (3.65-5.03) M/mm3 Hgb 11.7 10.8 (10.1-14.3) gm/dl Hct 37.5 35.7 (30.3-42.9) % Plt Count 349 328 (140-440) K/mm3 Lymph # 0.6 L (1.2-5.4) K/mm3 [place] # 0.6 (0.0-0.8) K/mm3 Eos # 0.1 (0.0-0.4) K/mm3 Baso # 0.1 (0.0-0.1) K/mm3 Comprehensive Metabolic Panel 12/28/18 12/28/18 Range/Units 18:02 23:03 Sodium 137 138 (137-145) mmol/L Potassium 3.4 L 3.4 L (3.6-5.0) mmol/L Chloride 97.0 L 98.9 (98-107) mmol/L Carbon Dioxide 25 23 (22-30) mmol/L BUN 14 16 (7-17) mg/dL Creatinine 2.7 H 3.1 H (0.7-1.2) mg/dL Glucose 163 H 116 H (65-100) mg/dL Calcium 9.9 10.0 (8.4-10.2) mg/dL AST 15 (5-40) units/L ALT 7 (7-56) units/L Alkaline Phosphatase 110 (35-129) units/L Total Protein 7.7 (6.3-8.2) g/dL Albumin 3.1 L (3.9-5) g/dL - Imaging and Cardiology Echo: report reviewed (EF 65-70%, mod aortic and mitral stenosis, mild TR, mod phtn, small pericardial eff) - EKG Interpretation EKG: sinus rhythm (with LVH) EKG interpretations - Telemetry EKG Rhythm: Sinus Rhythm - EKG Supraventricular dysrhythmia: atrial premature complexe Assessment and Plan Patient is a 68 y/o female with a history of CAD s/p [place], ESRD, htn, and anemia who presented to the ED with chest pressure during dialysis. Her troponins were elevated as well, which is a chronic presentation. A chest x-ray was suspicious for pneumonia, so she is being treated with antibiotics. Chest pain -EKG NAF, currently pain-free -Numerous previous stress tests negative - if pain persists, will consider cardiac catheterization -Continue Imdur -Will obtain echocardiogram to evaluate valvular dysfunction Elevated troponins -chronic and r/t ESRD ESRD on HD -Nephrology managing CAD -stable. Continue Imdur and Plavix Hypertension - Continue Imdur and lisinopril for now - monitor renal function closely Type 2 diabetes - Primary team managing Anemia PVD -Awaiting LE ultrasound Patient has been seen in conjunction with Dr. German, who agrees with assessment and plan of care.
--- NOTE | 2018-12-29 10:52 | Consultation ---
History of Present Illness - Reason for Consult Consult date: 12/29/18 peripheral vascular disease with gangrene, right first toe - History of Present Illness Patient with a history of peripheral vascular disease with ischemic changes to her right foot who previously had undergone revascularization procedure of her right leg. The patient's presented with complaints of chest pain and was noted to have infiltrates on chest x-ray consistent with new pneumonia. Past History Past Medical History: anemia, CAD, diabetes, dialysis, ESRD, hypertension, PVD Past Surgical History: Other (extremities angioplasty, left arm graft) Social history: no significant social history, lives with family Family history: no significant family history Medications and Allergies Allergies Allergy/AdvReac Type Severity Reaction Status Date / Time erythromycin base Allergy Rash Verified 10/26/18 18:04 [Erythromycin Base] Home Medications Medication Instructions Recorded Confirmed Last Taken Type Ferric Citrate (Nf) [Auryxia] 630 mg PO TIDWM 09/05/18 12/28/18 11/18/18 History Pantoprazole [Protonix TAB] 40 mg PO BID #60 tablet 10/03/18 12/28/18 10/16/18 20:00 Rx ISOSORBIDE MONOnitrate [Imdur ER] 30 mg PO QDAY #30 tablet 10/04/18 12/28/18 Unknown Rx Lisinopril [Zestril TAB] 5 mg PO DAILY #30 tablet 10/04/18 12/28/18 Unknown Rx cloNIDine [Catapres] 0.1 mg PO TID PRN 10/17/18 12/28/18 Unknown History Mupirocin [Bactroban 2% OINT] 1 applic TP TID #1 tube 10/29/18 12/28/18 Unknown Rx Clopidogrel [Plavix] 75 mg PO QDAY #30 tablet 11/28/18 12/28/18 Unknown Rx Clopidogrel [Plavix] 75 mg PO QDAY tablet 11/29/18 12/28/18 Unknown Rx oxyCODONE /ACETAMINOPHEN [Percocet 1 tab PO Q6H PRN #10 tablet 11/29/18 12/28/18 Unknown Rx 5/325 mg] Doxycycline Hyclate [Doxycycline 100 mg PO Q12HR 5 Days #10 tab 11/30/18 12/28/18 Unknown Rx Hyclate TAB] Active Meds: Active Medications Acetaminophen (Tylenol) 650 mg PO Q4H PRN PRN Reason: Pain MILD(1-3)/Fever >100.5/PEREZ Al Hydrox/Mg Hydrox/Simethicone (Alum-Mag Hydrox-Simeth [id number]/5ml) 30 ml PO Q4H PRN PRN Reason: Indigestion Aspirin (Ecotrin) 325 mg PO QDAY [facility] Atorvastatin Calcium (Lipitor) 20 mg PO QHS [facility] Last Admin: 12/28/18 23:35 Dose: 20 mg Documented by: Clonidine HCl (Catapres) 0.1 mg PO TID PRN PRN Reason: Blood Pressure Last Admin: 12/29/18 05:29 Dose: 0.1 mg Documented by: Clopidogrel Bisulfate (Plavix) 75 mg PO QDAY [facility] Heparin Sodium (Porcine) (Heparin) 5,000 unit SUB-Q Q12HR [facility] Last Admin: 12/28/18 23:35 Dose: 5,000 unit Documented by: Piperacillin Sod/Tazobactam Sod (Zosyn/Ns 2.25 Gm/50ml) 2.25 gm in 50 mls @ 100 mls/hr IV Q8HR [facility] Isosorbide Mononitrate (Imdur) 30 mg PO QDAY [facility] Levofloxacin (Levaquin) 500 mg PO Q48HR [facility] Lisinopril (Zestril) 5 mg PO QDAY [facility] Miscellaneous Medication (Ferric Citrate) 630 mg PO TIDWM [facility] Morphine Sulfate (Morphine) 2 mg IV Q4H PRN PRN Reason: Pain, Moderate (4-6) Mupirocin (Bactroban 2%) 1 applic TP TID [facility] Nitroglycerin (Nitrostat) 0.4 mg SL Q5M PRN PRN Reason: Chest Pain Ondansetron HCl (Zofran) 4 mg IV Q8H PRN PRN Reason: Nausea And Vomiting Oxycodone/Acetaminophen (Percocet 5/325) 1 tab PO Q6H PRN PRN Reason: Pain, Moderate (4-6) Pantoprazole Sodium (Protonix) 40 mg PO BID [facility] Sodium Chloride (Sodium Chloride Flush Syringe 10 Ml) 10 ml IV BID [facility] Last Admin: 12/28/18 23:53 Dose: 10 ml Documented by: Sodium Chloride (Sodium Chloride Flush Syringe 10 Ml) 10 ml IV PRN PRN PRN Reason: LINE FLUSH Review of Systems All systems: negative Exam - Constitutional Vitals: Temp Pulse Resp BP Pulse Ox 98.6 F 83 20 153/66 98 12/29/18 09:07 12/29/18 09:07 12/29/18 09:07 12/29/18 09:07 12/29/18 10:04 General appearance: Present: no acute distress - EENT Eyes: Present: EOM intact ENT: hearing intact - Neck Neck: Present: supple, normal ROM - Respiratory Respiratory effort: normal - Extremities Extremities: abnormal - Abdominal General gastrointestinal: Present: deferred Female genitourinary: Present: deferred - Rectal Rectal Exam: deferred - Psychiatric Psychiatric: appropriate mood/affect, cooperative Results - Labs CBC & Chem 7: 12/28/18 23:03 12/28/18 23:03 Labs: Abnormal lab results 12/28/18 12/28/18 12/28/18 Range/Units 18:02 18:02 23:03 MCH 25 L 25 L (28-32) pg RDW 21.6 H 21.3 H (13.2-15.2) % Lymph % (Auto) 7.5 L (13.4-35.0) % [place] % (Auto) 8.3 H (0.0-7.3) % Lymph # 0.6 L (1.2-5.4) K/mm3 Seg Neutrophils % 82.0 H (40.0-70.0) % Seg Neuts % (Manual) 85.0 H (40.0-70.0) % Lymphocytes % (Manual) 6.0 L (13.4-35.0) % Seg Neutrophils # Man 8.4 H (1.8-7.7) K/mm3 Lymphocytes # (Manual) 0.6 L (1.2-5.4) K/mm3 Potassium 3.4 L (3.6-5.0) mmol/L Chloride 97.0 L (98-107) mmol/L Creatinine 2.7 H (0.7-1.2) mg/dL Glucose 163 H (65-100) mg/dL CK-MB (CK-2) Rel Index (0-4) Troponin T 0.300 H* (0.00-0.029) ng/mL NT-Pro-B Natriuret Pep (0-900) pg/mL Albumin 3.1 L (3.9-5) g/dL Triglycerides 186 H (2-149) mg/dL 12/28/18 12/29/18 12/29/18 Range/Units 23:03 05:09 05:09 MCH (28-32) pg RDW (13.2-15.2) % Lymph % (Auto) (13.4-35.0) % [place] % (Auto) (0.0-7.3) % Lymph # (1.2-5.4) K/mm3 Seg Neutrophils % (40.0-70.0) % Seg Neuts % (Manual) (40.0-70.0) % Lymphocytes % (Manual) (13.4-35.0) % Seg Neutrophils # Man (1.8-7.7) K/mm3 Lymphocytes # (Manual) (1.2-5.4) K/mm3 Potassium 3.4 L (3.6-5.0) mmol/L Chloride (98-107) mmol/L Creatinine 3.1 H (0.7-1.2) mg/dL Glucose 116 H (65-100) mg/dL CK-MB (CK-2) Rel Index 4.1 H (0-4) Troponin T 0.329 H* (0.00-0.029) ng/mL NT-Pro-B Natriuret Pep 97710 H (0-900) pg/mL Albumin (3.9-5) g/dL Triglycerides (2-149) mg/dL Assessment and Plan The patient is currently being evaluated and treated for chest pain and pneumonia. We will obtain a vascular ultrasound of bilateral lower extremities for evaluation of patient's prior arterial intervention on her right leg. The patient will need wound care to the right foot. Additionally, as an outpatient, the patient will need to follow up with her evp operations for more definitive treatment.
--- NOTE | 2018-12-29 11:51 | Progress Note ---
Assessment and Plan Assessment and plan: Chest pain History of present illness: Patient is a 68-year-old female with PMHx of CAD s/p PR, DM type 2, HTN, ESRD on HD, anemia, who presents to the ER with c/o chest pain. Pt states that she was in dialysis today when the chest pain started, she states that it is a pressure like pain located on the left chest area, associated with cough and exertion. Pt states that the pain is worse with coughing, she have been having a non- productive cough for a few days. Pt denies SOB, denies palpitation, denies nausea or vomiting, denies fever and chills. Review of pt's records showed that the was admitted at the hospital on 11/21/2018 and on 11/27/2018 she underwent angioplasty of the left lower extremities and stenting of the right superficial femoral arteries. Chest x-ray showed new parenchymal opacity of the right lower lobe which could represents aspiration, atelectasis or developing pneumonia. Patient was admitted with chest pain and for treatment of HAP pneumonia. Past History Past Medical History: anemia, CAD, diabetes, dialysis, ESRD, hypertension, PVD Patient is a 68 y/o female with a history of CAD s/p PR, ESRD, htn, and anemia who presented to the ED with chest pressure during dialysis. Her troponins were elevated as well, which is a chronic presentation. A chest x-ray was suspicious for pneumonia, so she is being treated with antibiotics. Chest pain -EKG NAF, currently pain-free. -Numerous previous stress tests negative -Continue Imdur Elevated troponins -chronic and r/t ESRD ESRD on HD -Nephrology managing CAD -stable. Continue Imdur and Plavix Hypertension - Continue Imdur and lisinopril for now - monitor renal function closely Type 2 diabetes - Primary team managing Anemia PVD -Awaiting LE ultrasound Patient has been seen in conjunction with Dr. German, who agrees with ass essment and plan of care. History Interval history: Review of systems Constitutional: No fevers, no malaise, no joint pains CVS: No chest pain, no orthopnea, no dyspnea on exertion, no pedal edema GI: No abdominal pain, no diarrhea, no vomiting, no constipation Respiratory: no wheezing, no coughing Hospitalist Physical - Physical exam Narrative exam: General.: Appears well, no distress, nontoxic HEENT: Moist mucous membranes, extraocular muscles intact, no lymphadenopathy Neck: supple Cardiac: S1-S2 heard Lungs: clear to auscultation bilaterally Abdomen: soft , nontender, nondistended, bowel sounds positive Extremities: no edema clubbing or cyanosis Skin: no rash or lesions Neurologic: no gross focal deficits Psych: calm, and cooperative - Constitutional Vitals: Temp Pulse Resp BP Pulse Ox 98.6 F 83 20 153/66 98 12/29/18 09:07 12/29/18 09:07 12/29/18 09:07 12/29/18 09:07 12/29/18 10:04 General appearance: Present: no acute distress Results - Labs CBC & Chem 7: 12/28/18 23:03 12/28/18 23:03 Labs: Laboratory Last Values WBC 7.3 K/mm3 (4.5-11.0) 12/28/18 23:03 RBC 4.40 M/mm3 (3.65-5.03) 12/28/18 23:03 Hgb 10.8 gm/dl (10.1-14.3) 12/28/18 23:03 Hct 35.7 % (30.3-42.9) 12/28/18 23:03 MCV 81 fl (79-97) 12/28/18 23:03 MCH 25 pg (28-32) L 12/28/18 23:03 MCHC 30 % (30-34) 12/28/18 23:03 RDW 21.3 % (13.2-15.2) H 12/28/18 23:03 Plt Count 328 K/mm3 (140-440) 12/28/18 23:03 Lymph % (Auto) 7.5 % (13.4-35.0) L 12/28/18 23:03 [place] % (Auto) 8.3 % (0.0-7.3) H 12/28/18 23:03 Eos % (Auto) 1.4 % (0.0-4.3) 12/28/18 23:03 Baso % (Auto) 0.8 % (0.0-1.8) 12/28/18 23:03 Lymph # 0.6 K/mm3 (1.2-5.4) L 12/28/18 23:03 Hart # 0.6 K/mm3 (0.0-0.8) 12/28/18 23:03 Eos # 0.1 K/mm3 (0.0-0.4) 12/28/18 23:03 Baso # 0.1 K/mm3 (0.0-0.1) 12/28/18 23:03 Add Manual Diff Complete 12/28/18 18:02 Total Counted 100 12/28/18 18:02 Seg Neutrophils % 82.0 % (40.0-70.0) H 12/28/18 23:03 Seg Neuts % (Manual) 85.0 % (40.0-70.0) H 12/28/18 18:02 0 % 12/28/18 18:02 6.0 % (13.4-35.0) L 12/28/18 18:02 Reactive Lymphs % (Man) 0 % 12/28/18 18:02 7.0 % (0.0-7.3) 12/28/18 18:02 2.0 % (0.0-4.3) 12/28/18 18:02 0 % (0.0-1.8) 12/28/18 18:02 0 % 12/28/18 18:02 0 % 12/28/18 18:02 0 % 12/28/18 18:02 0 % 12/28/18 18:02 Nucleated RBC % Not Reportable 12/28/18 18:02 Seg Neutrophils # 6.0 K/mm3 (1.8-7.7) 12/28/18 23:03 Seg Neutrophils # Man 8.4 K/mm3 (1.8-7.7) H 12/28/18 18:02 Band Neutrophils # 0.0 K/mm3 12/28/18 18:02 0.6 K/mm3 (1.2-5.4) L 12/28/18 18:02 Abs React Lymphs (Man) 0.0 K/mm3 12/28/18 18:02 0.7 K/mm3 (0.0-0.8) 12/28/18 18:02 0.2 K/mm3 (0.0-0.4) 12/28/18 18:02 0.0 K/mm3 (0.0-0.1) 12/28/18 18:02 0.0 K/mm3 12/28/18 18:02 0.0 K/mm3 12/28/18 18:02 0.0 K/mm3 12/28/18 18:02 Blast Cells # 0.0 K/mm3 12/28/18 18:02 WBC Morphology Not Reportable 12/28/18 18:02 Hypersegmented Neuts Not Reportable 12/28/18 18:02 Hyposegmented Neuts Not Reportable 12/28/18 18:02 Hypogranular Neuts Not Reportable 12/28/18 18:02 Not Reportable 12/28/18 18:02 Not Reportable 12/28/18 18:02 Not Reportable 12/28/18 18:02 Not Reportable 12/28/18 18:02 Not Reportable 12/28/18 18:02 Not Reportable 12/28/18 18:02 Not Reportable 12/28/18 18:02 Not Reportable 12/28/18 18:02 Plt Clumps, EDTA Not Reportable 12/28/18 18:02 Not Reportable 12/28/18 18:02 Not Reportable 12/28/18 18:02 Not Reportable 12/28/18 18:02 Plt Morphology Comment Not Reportable 12/28/18 18:02 RBC Morphology Not Reportable 12/28/18 18:02 Dimorphic RBCs Not Reportable 12/28/18 18:02 Not Reportable 12/28/18 18:02 1+ 12/28/18 18:02 Not Reportable 12/28/18 18:02 1+ 12/28/18 18:02 Not Reportable 12/28/18 18:02 Not Reportable 12/28/18 18:02 Not Reportable 12/28/18 18:02 Not Reportable 12/28/18 18:02 Not Reportable 12/28/18 18:02 Not Reportable 12/28/18 18:02 Not Reportable 12/28/18 18:02 Not Reportable 12/28/18 18:02 Not Reportable 12/28/18 18:02 Not Reportable 12/28/18 18:02 Not Reportable 12/28/18 18:02 Not Reportable 12/28/18 18:02 Not Reportable 12/28/18 18:02 Not Reportable 12/28/18 18:02 Not Reportable 12/28/18 18:02 Acanthocytes (Spur) Not Reportable 12/28/18 18:02 Rouleaux Not Reportable 12/28/18 18:02 Not Reportable 12/28/18 18:02 Not Reportable 12/28/18 18:02 Not Reportable 12/28/18 18:02 Not Reportable 12/28/18 18:02 Hem Pathologist Commnt No 12/28/18 18:02 Sodium 138 mmol/L (137-145) 12/28/18 23:03 Potassium 3.4 mmol/L (3.6-5.0) L 12/28/18 23:03 Chloride 98.9 mmol/L (98-107) 12/28/18 23:03 Carbon Dioxide 23 mmol/L (22-30) 12/28/18 23:03 20 mmol/L 12/28/18 23:03 BUN 16 mg/dL (7-17) 12/28/18 23:03 3.1 mg/dL (0.7-1.2) H 12/28/18 23:03 Estimated GFR 18 ml/min 12/28/18 23:03 5 % 12/28/18 23:03 Glucose 116 mg/dL (65-100) H 12/28/18 23:03 Calcium 10.0 mg/dL (8.4-10.2) 12/28/18 23:03 0.30 mg/dL (0.1-1.2) 12/28/18 18:02 AST 15 units/L (5-40) 12/28/18 18:02 ALT 7 units/L (7-56) 12/28/18 18:02 110 units/L (35-129) 12/28/18 18:02 46 units/L (30-135) 12/29/18 05:09 CK-MB (CK-2) 1.9 ng/mL (0.0-4.0) 12/29/18 05:09 CK-MB (CK-2) Rel Index 4.1 (0-4) H 12/29/18 05:09 0.329 ng/mL (0.00-0.029) H* 12/29/18 05:09 NT-Pro-B Natriuret Pep 50230 pg/mL (0-900) H 12/28/18 23:03 7.7 g/dL (6.3-8.2) 12/28/18 18:02 3.1 g/dL (3.9-5) L 12/28/18 18:02 0.7 % 12/28/18 18:02 Triglycerides 186 mg/dL (2-149) H 12/28/18 18:02 Cholesterol 138 mg/dL (50-199) 12/28/18 18:02 67 mg/dL (50-130) 12/28/18 18:02 47 mg/dL (40-59) 12/28/18 18:02 2.93 % 12/28/18 18:02 Active Medications - Current Medications Current Medications: Generic Name Dose Route Start Last Admin Trade Name Freq PRN Reason Stop Dose Admin Acetaminophen 650 mg 12/28/18 21:19 Tylenol PO Q4H PRN Pain MILD(1-3)/Fever >100.5/PEREZ Al Hydrox/Mg Hydrox/Simethicone 30 ml 12/28/18 21:19 Alum-Mag Hydrox-Simeth 333-567-81ps/5ml PO Q4H PRN Indigestion Aspirin 325 mg 12/29/18 10:00 Ecotrin PO QDAY [facility] Atorvastatin Calcium 20 mg 12/28/18 22:00 12/28/18 23:35 Lipitor PO 20 mg QHS [facility] Administration Clonidine HCl 0.1 mg 12/29/18 02:46 12/29/18 05:29 Catapres PO 0.1 mg TID PRN Administration Blood Pressure Clopidogrel Bisulfate 75 mg 12/29/18 10:00 Plavix PO QDAY [facility] Heparin Sodium (Porcine) 5,000 unit 12/28/18 22:00 12/28/18 23:35 Heparin SUB-Q 5,000 unit Q12HR [facility] Administration Piperacillin Sod/Tazobactam Sod 2.25 gm in 50 mls @ 100 mls/hr 12/29/18 14:00 Zosyn/Ns 2.25 Gm/50ml IV Q8HR [facility] Isosorbide Mononitrate 30 mg 12/29/18 10:00 Imdur PO QDAY [facility] Levofloxacin 500 mg 12/31/18 10:00 Levaquin PO Q48HR [facility] Lisinopril 5 mg 12/29/18 10:00 Zestril PO QDAY [facility] Miscellaneous Medication 630 mg 12/29/18 08:00 Ferric Citrate PO TIDWM [facility] Morphine Sulfate 2 mg 12/28/18 21:19 Morphine IV Q4H PRN Pain, Moderate (4-6) Mupirocin 1 applic 12/29/18 08:00 Bactroban 2% TP TID [facility] Nitroglycerin 0.4 mg 12/28/18 21:34 Nitrostat SL Q5M PRN Chest Pain Ondansetron HCl 4 mg 12/28/18 21:19 Zofran IV Q8H PRN Nausea And Vomiting Oxycodone/Acetaminophen 1 tab 12/29/18 02:46 Percocet 5/325 PO Q6H PRN Pain, Moderate (4-6) Pantoprazole Sodium 40 mg 12/29/18 10:00 Protonix PO BID [facility] Sodium Chloride 10 ml 12/28/18 22:00 12/28/18 23:53 Sodium Chloride Flush Syringe 10 Ml IV 10 ml BID [facility] Administration Sodium Chloride 10 ml 12/28/18 21:34 Sodium Chloride Flush Syringe 10 Ml IV PRN PRN LINE FLUSH
--- NOTE | 2018-12-29 11:55 | Consultation ---
History of Present Illness - History of Present Illness Thank you for the consultation ! Patient was evaluated today My assessment and plan are as follows; End-stage renal disease: Patient is currently on maintenance dialysis 3 times a week she will continue with hemodialysis treatment, Tuesday and Tuesday Avoid excessive ultrafiltration which can worsen her peripheral ischemia, judicious ultrafiltration on hemodialysis Will need to reassess her in the morning for hemodialysis needs Anemia and end-stage renal disease: To monitor and follow current hemoglobin is around 10.8 we'll give her erythropoietin 1 dose, Chest x-ray shows possible abnormality in the right midlung? Pneumonia? Atelectasis Secondary hyperparathyroidism: Check phosphorus and PTH level periodically Malnutrition risk: High needs nutrition evaluation high-protein diet fluid restriction and sodium restriction, dialysis diet Abnormal troponin / chest paincurrently this is higher than ESRD currently she is being evaluated by cardiology Mild hypokalemia potassium is 3.4 will need higher dialysate bath, Admitted with gangrene of the first toe with history of peripheral arterial disease, patient also does have prior history of diabetes as well as coronary artery disease Hypertension and volume: Monitor blood pressure low systolic blood pressure for now less than 150, ultrafiltration only as tolerated with hemodialysis All renal related questions were answered and simple Bulgarian pertinent lab studies as well as imaging results were also discussed with patient We will continue to follow and make recommendations from renal standpoint. Thank you for the consultation Author: Dany Daniels M.D. [facility], [address] [place] [address] Tel; [phone] Source of information: From patient History of present illness Patient is a 68-year-old -Bul[place]ian female who is currently in maintenance dialysis on Tuesday and Tuesday she has been admitted here with, gangrene of her feet, she is currently being followed by vascular surgery, Patient is currently being evaluated for chest pain as well, she has a history of severe peripheral vascular disease involving her feet, pain was substernal in location she has had some cough which was nonproductive Chest x-ray showed evidence of possible parenchymal opacity in the right lower lobe? Pneumonia atelectasis Patient does have history of valvular heart disease with moderate aortic stenosis and mitral stenosis Gangrene over time has been worsening Past medical history is significant for End-stage renal disease Anemia and end-stage renal disease Secondary hyperparathyroidism Myocardial infarction Coronary artery disease Diabetes mellitus type 2 Hypertension Aortic stenosis Mitral stenosis Pulmonary hypertension Current access is a fistula in her arm Peripheral arterial disease Current allergies: Reviewed from the current chart Social history: Reviewed from the current chart Family history: Reviewed from the current chart Review of system: Positive for chest pain and worsening gangrene All other review of systems negative Physical examination Vitals: Reviewed General: No acute distress HEENT: Oral mucosa moist no pallor or icterus Neck: Supple without any JVD thyromegaly or nodular mass Chest: Clear to auscultation Heart: Regular rate and rhythm S1-S2 heard no S3-S4 Abdomen: Soft nontender, bowel sounds present no renal bruit no suprapubic masses no CVA tenderness noted Extremity: Minimal edema dry skin no peripheral cyanosis patient has discolored toes also has dressing in her feet Current access is a fistula in her left arm, which has good thrill Endocrine: Thyroid not enlarged Psychiatric: No agitation and aggression noted Musculoskeletal: No joint effusion noted Labs and x-rays: Reviewed from this admission Past History Past Medical History: anemia, CAD, diabetes, dialysis, ESRD, hypertension, PVD Past Surgical History: Other (extremities angioplasty, left arm graft) Social history: no significant social history, lives with family Family history: no significant family history Medications and Allergies Allergies Allergy/AdvReac Type Severity Reaction Status Date / Time erythromycin base Allergy Rash Verified 10/26/18 18:04 [Erythromycin Base] Home Medications Medication Instructions Recorded Confirmed Last Taken Type Ferric Citrate (Nf) [Auryxia] 630 mg PO TIDWM 09/05/18 12/28/18 11/18/18 History Pantoprazole [Protonix TAB] 40 mg PO BID #60 tablet 10/03/18 12/28/18 10/16/18 20:00 Rx ISOSORBIDE MONOnitrate [Imdur ER] 30 mg PO QDAY #30 tablet 10/04/18 12/28/18 Unknown Rx Lisinopril [Zestril TAB] 5 mg PO DAILY #30 tablet 10/04/18 12/28/18 Unknown Rx cloNIDine [Catapres] 0.1 mg PO TID PRN 10/17/18 12/28/18 Unknown History Mupirocin [Bactroban 2% OINT] 1 applic TP TID #1 tube 10/29/18 12/28/18 Unknown Rx Clopidogrel [Plavix] 75 mg PO QDAY #30 tablet 11/28/18 12/28/18 Unknown Rx Clopidogrel [Plavix] 75 mg PO QDAY tablet 11/29/18 12/28/18 Unknown Rx oxyCODONE /ACETAMINOPHEN [Percocet 1 tab PO Q6H PRN #10 tablet 11/29/18 12/28/18 Unknown Rx 5/325 mg] Doxycycline Hyclate [Doxycycline 100 mg PO Q12HR 5 Days #10 tab 11/30/18 12/28/18 Unknown Rx Hyclate TAB] Active Meds: Active Medications Acetaminophen (Tylenol) 650 mg PO Q4H PRN PRN Reason: Pain MILD(1-3)/Fever >100.5/PEREZ Al Hydrox/Mg Hydrox/Simethicone (Alum-Mag Hydrox-Simeth [id number]/5ml) 30 ml PO Q4H PRN PRN Reason: Indigestion Aspirin (Ecotrin) 325 mg PO QDAY [facility] Atorvastatin Calcium (Lipitor) 20 mg PO QHS [facility] Last Admin: 12/28/18 23:35 Dose: 20 mg Documented by: Clonidine HCl (Catapres) 0.1 mg PO TID PRN PRN Reason: Blood Pressure Last Admin: 12/29/18 05:29 Dose: 0.1 mg Documented by: Clopidogrel Bisulfate (Plavix) 75 mg PO QDAY [facility] Heparin Sodium (Porcine) (Heparin) 5,000 unit SUB-Q Q12HR [facility] Last Admin: 12/28/18 23:35 Dose: 5,000 unit Documented by: Piperacillin Sod/Tazobactam Sod (Zosyn/Ns 2.25 Gm/50ml) 2.25 gm in 50 mls @ 100 mls/hr IV Q8HR [facility] Isosorbide Mononitrate (Imdur) 30 mg PO QDAY [facility] Levofloxacin (Levaquin) 500 mg PO Q48HR [facility] Lisinopril (Zestril) 5 mg PO QDAY [facility] Miscellaneous Medication (Ferric Citrate) 630 mg PO TIDWM [facility] Morphine Sulfate (Morphine) 2 mg IV Q4H PRN PRN Reason: Pain, Moderate (4-6) Mupirocin (Bactroban 2%) 1 applic TP TID [facility] Nitroglycerin (Nitrostat) 0.4 mg SL Q5M PRN PRN Reason: Chest Pain Ondansetron HCl (Zofran) 4 mg IV Q8H PRN PRN Reason: Nausea And Vomiting Oxycodone/Acetaminophen (Percocet 5/325) 1 tab PO Q6H PRN PRN Reason: Pain, Moderate (4-6) Pantoprazole Sodium (Protonix) 40 mg PO BID [facility] Sodium Chloride (Sodium Chloride Flush Syringe 10 Ml) 10 ml IV BID [facility] Last Admin: 12/28/18 23:53 Dose: 10 ml Documented by: Sodium Chloride (Sodium Chloride Flush Syringe 10 Ml) 10 ml IV PRN PRN PRN Reason: LINE FLUSH Exam - Vital Signs Vital signs: Vital Signs Temp Pulse Resp BP Pulse Ox 99.1 F 107 H 24 176/77 98 12/28/18 16:39 12/28/18 16:39 12/28/18 16:39 12/28/18 16:39 12/28/18 16:39 Results - Lab Results 12/28/18 23:03 12/28/18 23:03 Most recent lab results Calcium 10.0 mg/dL (8.4-10.2) 12/28/18 23:03
[2018-12-29] MEDS ORDERED: PROCRIT SUB-Q ONE (12:00)
[2018-12-29] MEDS: BACTROBAN 2% TP SCH ×3 (13:19→20:25)
[2018-12-29] MEDS: PLAVIX PO SCH (13:20)
[2018-12-29] MEDS: PROTONIX PO SCH ×2 (13:20→21:52)
[2018-12-29] MEDS: ZESTRIL PO SCH (13:21)
[2018-12-29] MEDS: ECOTRIN PO SCH (13:21)
[2018-12-29] MEDS: IMDUR PO SCH (13:21)
[2018-12-29] MEDS: SODIUM CHLORIDE FLUSH SYRINGE 10 ML IV SCH ×2 (13:22→22:09)
[2018-12-29] MEDS: HEPARIN SUB-Q SCH ×2 (13:22→21:54)
[2018-12-29] MEDS: ZOSYN/NS 2.25 GM/50ML 2.25 GM/50 ML BAG IV SCH ×2 (13:29→21:53)
--- NOTE | 2018-12-29 15:50 | Vascular Lab Report ---
DUPLEX DOPPLER LOWER EXTREMITY ARTERIAL, BILATERAL INDICATION: PVD with gangrene. TECHNIQUE: Arterial duplex examination of both lower extremities performed using B-mode, color flow and spectral Doppler assessment. FINDINGS: RIGHT: Common Femoral Artery: PSV 116 cm/sec. Triphasic waveform. Proximal SFA: PSV 117 cm/sec. Biphasic waveform. Mid SFA: PSV 159 cm/sec. Biphasic waveform. Distal SFA: PSV 82 cm/sec. Biphasic waveform. Popliteal artery: PSV 71 cm/sec. Monophasic waveform. Posterior tibial artery: PSV 20 cm/sec. Monophasic waveform. Anterior tibial artery: PSV 35 cm/sec. Monophasic waveform. LEFT: Common Femoral Artery: PSV 68 cm/sec. Triphasic waveform. Proximal SFA: PSV 40 cm/sec. Monophasic waveform. Mid SFA: PSV 32 cm/sec. Monophasic waveform. Distal SFA: PSV 29 cm/sec. Monophasic waveform. Popliteal artery: PSV 22 cm/sec. Monophasic waveform. Posterior tibial artery: PSV 7 cm/sec. Monophasic waveform. Dorsalis Pedis Artery: PSV 15 cm/sec. Monophasic waveform. Additional findings: Moderate amount of scattered calcific plaques are noted in both lower extremitie s. IMPRESSION: Moderate diffuse atherosclerotic disease. Areas of stenosis are noted in both mid superficial femoral arteries. Doppler Waveform: * Triphasic is normal. * Biphasic is abnormal if clear transition from triphasic signal along vascular tree. * Monophasic is abnormal. Signer Name: Smair Sousa Jr, MD Signed: 12/29/2018 3:46 PM Workstation Name: [id number]
--- NOTE | 2018-12-29 16:06 | Vascular Lab Report ---
LOWER EXTREMITY SEGMENTAL ARTERIAL DOPPLER PRESSURE AND PVR STUDY HISTORY: PVD with gangrene, right lower extremity pain and sore COMPARISON: none TECHNIQUE: Lower extremity segmental arterial doppler pressure and PVR analysis were obtained at [facility] lower extremity levels bilaterally. FINDINGS: Normal arterial waveforms are seen within both lower extremities. RIGHT: Brachial artery peak-systolic pressure: 133 mmHg Posterior tibialis: >255 mmHg Dorsalis pedis: >255 mmHg JASVIR: Could not be calculated because the vessels are noncompressible. LEFT: Brachial artery peak-systolic pressure: 133 mmHg Posterior tibialis: 33 mmHg Dorsalis pedis: >255 mmHg JASVIR: Not be calculated because the vessels are noncompressible. Signer Name: Samir Sousa Jr, MD Signed: 12/29/2018 4:02 PM Workstation Name: [id number]
[2018-12-29] MEDS: PERCOCET 5/325 PO PRN (18:30)
[2018-12-29] MEDS ORDERED: NACL 0.9% 100 ML IV PRN (19:44)
[2018-12-29] MEDS ORDERED: MAXIPIME/NS 1 GM/100 ML 1 GM/100 ML BAG IV SCH (20:00)
[2018-12-29] MEDS ORDERED: ZITHROMAX 500 MG in NACL 0.9% 250ML 250 ML IV SCH (22:00)
[2018-12-29 22:02] LABS: Hepatitis B Surface Antigen Non-Reactive (Negative); Hepatitis C Virus Antibody Non-Reactive (NonReactive)
[2018-12-29] MEDS: MORPHINE IV PRN (23:52)
[2018-12-30] MEDS: PERCOCET 5/325 PO PRN (04:31)
[2018-12-30] MEDS: ZOSYN/NS 2.25 GM/50ML 2.25 GM/50 ML BAG IV SCH ×3 (06:20→22:35)
[2018-12-30] MEDS: BACTROBAN 2% TP SCH ×4 (09:10→22:42)
--- NOTE | 2018-12-30 09:13 | Progress Note ---
Assessment and Plan PNA as per primary team Chest pain atypical patient is a poor historian and chest pain is very atypical unclear -EKG NAF, -Numerous previous stress tests negative - add lopressor and statin -Continue Imdur -Will obtain echocardiogram to evaluate valvular dysfunction Nstemi type 2 -chronic and r/t ESRD ESRD on HD -Nephrology managing CAD -stable. Continue Imdur and Plavix Hypertension - Continue Imdur and lisinopril for now - monitor renal function closely Type 2 diabetes - Primary team managing Anemia PVD Subjective Date of service: 12/30/18 Principal diagnosis: chest pain Interval history: pt has chest pain but is poor historian, atypical Objective Vital Signs Temp Pulse Resp BP BP Pulse Ox 12/30/18 03:22 98.4 F 92 H 16 154/75 100 12/30/18 00:37 98.0 F 82 18 127/67 100 12/29/18 23:52 18 12/29/18 20:00 998.0 F H 77 18 134/64 98 12/29/18 19:33 77 12/29/18 17:28 98.5 F 93 H 20 142/65 99 12/29/18 13:21 81 157/76 12/29/18 10:04 98 - Physical Examination General: No Apparent Distress HEENT: Positive: PERRL Neck: Positive: neck supple Cardiac: Positive: Reg Rate and Rhythm, Audible Murmur Lungs: Positive: clear to auscultation Neuro: Positive: Weakness Abdomen: Positive: Unremarkable Skin: Positive: Other (AV fistula - LUE) Extremities: Present: edema (Left arm - chronic ) - Labs and Meds Cardiac Enzymes 12/29/18 Range/Units 16:26 CK-MB (CK-2) 2.0 (0.0-4.0) ng/mL - Imaging and Cardiology Pharmacologic stress test: report reviewed (08/2017 no significant ischemia noted) Echo: report reviewed (EF 65-70%, mod aortic and mitral stenosis, mild TR, mod phtn, small pericardial eff) - Telemetry EKG Rhythm: Sinus Rhythm
[2018-12-30] MEDS: PLAVIX PO SCH (09:56)
[2018-12-30] MEDS: IMDUR PO SCH (09:56)
[2018-12-30] MEDS: ZESTRIL PO SCH (09:56)
[2018-12-30] MEDS: ECOTRIN PO SCH (09:56)
[2018-12-30] MEDS: HEPARIN SUB-Q SCH ×2 (09:56→22:41)
[2018-12-30] MEDS: SODIUM CHLORIDE FLUSH SYRINGE 10 ML IV SCH ×2 (09:57→22:37)
[2018-12-30] MEDS: PROTONIX PO SCH ×2 (09:57→22:41)
--- NOTE | 2018-12-30 10:57 | Progress Note ---
Assessment and Plan Patient is stable from a vascular standpoint. She will need a follow-up with Dr. Jones in our office after discharge. She will need wound care follow-up and outpatient follow-up with a brush head maker for more definitive treatment of her first toe as it is non-salvageable. Subjective Date of service: 12/30/18 Principal diagnosis: chest pain Interval history: The patient's chest pain is resolving somewhat. Vascular ultrasound of her legs I was performed yesterday and demonstrates the patency of prior interventions. Objective - Constitutional Vitals: Vital Signs - 12hr 12/29/18 12/30/18 12/30/18 23:52 00:37 03:22 Temperature 98.0 F 98.4 F Pulse Rate 82 92 H Respiratory 18 18 16 Rate Blood Pressure 127/67 154/75 O2 Sat by Pulse 100 100 Oximetry General appearance: Present: no acute distress - EENT Eyes: EOM intact ENT: hearing intact - Neck Neck: supple - Respiratory Respiratory effort: normal - Breasts Breasts: deferred Extremities: abnormal (gangrene first toe right foot) - Gastrointestinal General gastrointestinal: Present: deferred Rectal Exam: deferred - Genitourinary Female genitourinary: deferred - Psychiatric Psychiatric: appropriate mood/affect, cooperative - Labs CBC & Chem 7: 12/28/18 23:03 12/28/18 23:03 Labs: Abnormal lab results 12/29/18 Range/Units 16:26 CK-MB (CK-2) Rel Index 5.5 H (0-4) Troponin T 0.323 H* (0.00-0.029) ng/mL Medications & Allergies - Medications Allergies/Adverse Reactions: Allergies erythromycin base [Erythromycin Base] Allergy (Verified 10/26/18 18:04) Rash PATIENT ASK ME TO REMOVEDMED ON ALLERGY LIST. Home Medications: Home Medications Medication Instructions Recorded Confirmed Last Taken Type Ferric Citrate (Nf) [Auryxia] 630 mg PO TIDWM 09/05/18 12/28/18 11/18/18 History Pantoprazole [Protonix TAB] 40 mg PO BID #60 tablet 10/03/18 12/28/18 10/16/18 20:00 Rx ISOSORBIDE MONOnitrate [Imdur ER] 30 mg PO QDAY #30 tablet 10/04/18 12/28/18 Unknown Rx Lisinopril [Zestril TAB] 5 mg PO DAILY #30 tablet 10/04/18 12/28/18 Unknown Rx cloNIDine [Catapres] 0.1 mg PO TID PRN 10/17/18 12/28/18 Unknown History Mupirocin [Bactroban 2% OINT] 1 applic TP TID #1 tube 10/29/18 12/28/18 Unknown Rx Clopidogrel [Plavix] 75 mg PO QDAY #30 tablet 11/28/18 12/28/18 Unknown Rx Clopidogrel [Plavix] 75 mg PO QDAY tablet 11/29/18 12/28/18 Unknown Rx oxyCODONE /ACETAMINOPHEN [Percocet 1 tab PO Q6H PRN #10 tablet 11/29/18 12/28/18 Unknown Rx 5/325 mg] Doxycycline Hyclate [Doxycycline 100 mg PO Q12HR 5 Days #10 tab 11/30/18 12/28/18 Unknown Rx Hyclate TAB] Active Medications: Generic Name Dose Route Start Last Admin Trade Name Freq PRN Reason Stop Dose Admin Acetaminophen 650 mg 12/28/18 21:19 Tylenol PO Q4H PRN Pain MILD(1-3)/Fever >100.5/PEREZ Al Hydrox/Mg Hydrox/Simethicone 30 ml 12/28/18 21:19 Alum-Mag Hydrox-Simeth 295-949-07ub/5ml PO Q4H PRN Indigestion Aspirin 325 mg 12/29/18 10:00 12/30/18 09:56 Ecotrin PO 325 mg QDAY [facility] Administration Atorvastatin Calcium 20 mg 12/28/18 22:00 12/29/18 21:52 Lipitor PO 20 mg QHS [facility] Administration Clonidine HCl 0.1 mg 12/29/18 02:46 12/29/18 05:29 Catapres PO 0.1 mg TID PRN Administration Blood Pressure Clopidogrel Bisulfate 75 mg 12/29/18 10:00 12/30/18 09:56 Plavix PO 75 mg QDAY [facility] Administration Heparin Sodium (Porcine) 5,000 unit 12/28/18 22:00 12/30/18 09:56 Heparin SUB-Q 5,000 unit Q12HR [facility] Administration Piperacillin Sod/Tazobactam Sod 2.25 gm in 50 mls @ 100 mls/hr 12/29/18 14:00 12/30/18 06:20 Zosyn/Ns 2.25 Gm/50ml IV 100 mls/hr Q8HR [facility] Administration Sodium Chloride 100 mls @ 999 mls/hr 12/29/18 19:44 Nacl 0.9% IV ANTOINETTE PRN Hypotension Isosorbide Mononitrate 30 mg 12/29/18 10:00 12/30/18 09:56 Imdur PO 30 mg QDAY [facility] Administration Levofloxacin 500 mg 12/31/18 10:00 Levaquin PO Q48HR [facility] Lisinopril 5 mg 12/29/18 10:00 12/30/18 09:56 Zestril PO 5 mg QDAY [facility] Administration Metoprolol Tartrate 25 mg 12/30/18 11:00 Lopressor PO BID [facility] Miscellaneous Medication 630 mg 12/29/18 08:00 Ferric Citrate PO TIDWM [facility] Morphine Sulfate 2 mg 12/28/18 21:19 12/29/18 23:52 Morphine IV 2 mg Q4H PRN Administration Pain, Moderate (4-6) Mupirocin 1 applic 12/29/18 08:00 12/29/18 20:25 Bactroban 2% TP 1 applic TID [facility] Administration Nitroglycerin 0.4 mg 12/28/18 21:34 Nitrostat SL Q5M PRN Chest Pain Ondansetron HCl 4 mg 12/28/18 21:19 Zofran IV Q8H PRN Nausea And Vomiting Oxycodone/Acetaminophen 1 tab 12/29/18 02:46 12/30/18 04:31 Percocet 5/325 PO 1 tab Q6H PRN Administration Pain, Moderate (4-6) Pantoprazole Sodium 40 mg 12/29/18 10:00 12/30/18 09:57 Protonix PO 40 mg BID [facility] Administration Sodium Chloride 10 ml 12/28/18 22:00 12/30/18 09:57 Sodium Chloride Flush Syringe 10 Ml IV 10 ml BID [facility] Administration Sodium Chloride 10 ml 12/28/18 21:34 Sodium Chloride Flush Syringe 10 Ml IV PRN PRN LINE FLUSH
--- NOTE | 2018-12-30 11:11 | Progress Note ---
Subjective Principal diagnosis: chest pain Interval history: Patient was seen today for follow-up on multiple renal related issues Events of this hospitalization were noted Currently in hemodialysis Tuesday Status was cardiology and vascular evaluation Interdisciplinary notes were also reviewed Vitals intake output medications were reviewed Past medical history: Reviewed Family, social history: Reviewed Allergies: Reviewed Physical examination General: No acute distress Vitals: Reviewed HEENT: Oral mucosa moist no icterus Neck: Supple no thyromegaly nodular mass or JVD Chest: Clear to auscultation anteriorly Heart: Regular rate and rhythm S1-S2 heard no S3-S4 Abdomen: Soft nontender no suprapubic masses no organomegaly Extremity: Dry skin changes of gangrene Fistula: Appears to be working well Psych: No evidence of any agitation and aggression noted Derm: No petechial rash Changes of gangrene and lower extremity Assessment and plan: End-stage renal disease: Patient will continue with hemodialysis treatment on , Tuesday and Tuesday scheduled as tolerated monitor hemodynamics closely while on dialysis dialysis nurse to monitor blood pressure and make sure systolic blood pressure is not below 100 and heart rate is not above 100, Peripheral arterial disease: Avoid any drop in blood pressure Anemia and end-stage renal disease: To monitor and follow, erythropoietin as required goal hemoglobin dialysis patients usually occurring 10 and 12 Abnormal troponin? ESRD cardiology following Mild hypokalemia: We'll start her on potassium replacement Secondary hyperparathyroidism: Monitor phosphorus and PTH and adjust binders as needed Diet and nutrition: Fluid restriction 1200 mL per day, high-protein diet may benefit from nutrition consultation , patient is protein intake should be 1.5 g per KG body weight Hypertension and volume continue to monitor, educated about fluid restriction sodium restriction Dialysis diet plan was discussed with the patient for end-stage renal disease care Patient was also educated about hospital-related comorbidities Patient does exhibit good understanding of the renal related issues All renal related issues were discussed with the patient, patient does exhibit good understanding, lab results were also discussed with patient in simple Amharic Prognosis: Guarded We'll continue to follow and make recommendation from renal standpoint Objective - Vital Signs Vital signs: Vital Signs - 12hr 12/29/18 12/30/18 12/30/18 23:52 00:37 03:22 Temperature 98.0 F 98.4 F Pulse Rate 82 92 H Respiratory 18 18 16 Rate Blood Pressure 127/67 154/75 O2 Sat by Pulse 100 100 Oximetry - Lab 12/28/18 23:03 12/28/18 23:03 Most recent lab results Calcium 10.0 mg/dL (8.4-10.2) 12/28/18 23:03 Medications & Allergies - Medications Allergies/Adverse Reactions: Allergies erythromycin base [Erythromycin Base] Allergy (Verified 10/26/18 18:04) Rash PATIENT ASK ME TO REMOVEDMED ON ALLERGY LIST. Home Medications: Home Medications Medication Instructions Recorded Confirmed Last Taken Type Ferric Citrate (Nf) [Auryxia] 630 mg PO TIDWM 09/05/18 12/28/18 11/18/18 History Pantoprazole [Protonix TAB] 40 mg PO BID #60 tablet 10/03/18 12/28/18 10/16/18 20:00 Rx ISOSORBIDE MONOnitrate [Imdur ER] 30 mg PO QDAY #30 tablet 10/04/18 12/28/18 Unknown Rx Lisinopril [Zestril TAB] 5 mg PO DAILY #30 tablet 10/04/18 12/28/18 Unknown Rx cloNIDine [Catapres] 0.1 mg PO TID PRN 10/17/18 12/28/18 Unknown History Mupirocin [Bactroban 2% OINT] 1 applic TP TID #1 tube 10/29/18 12/28/18 Unknown Rx Clopidogrel [Plavix] 75 mg PO QDAY #30 tablet 11/28/18 12/28/18 Unknown Rx Clopidogrel [Plavix] 75 mg PO QDAY tablet 11/29/18 12/28/18 Unknown Rx oxyCODONE /ACETAMINOPHEN [Percocet 1 tab PO Q6H PRN #10 tablet 11/29/18 12/28/18 Unknown Rx 5/325 mg] Doxycycline Hyclate [Doxycycline 100 mg PO Q12HR 5 Days #10 tab 11/30/18 12/28/18 Unknown Rx Hyclate TAB] Active Medications: Generic Name Dose Route Start Last Admin Trade Name Freq PRN Reason Stop Dose Admin Acetaminophen 650 mg 12/28/18 21:19 Tylenol PO Q4H PRN Pain MILD(1-3)/Fever >100.5/PEREZ Al Hydrox/Mg Hydrox/Simethicone 30 ml 12/28/18 21:19 Alum-Mag Hydrox-Simeth 365-543-32ay/5ml PO Q4H PRN Indigestion Aspirin 325 mg 12/29/18 10:00 12/30/18 09:56 Ecotrin PO 325 mg QDAY [facility] Administration Atorvastatin Calcium 20 mg 12/28/18 22:00 12/29/18 21:52 Lipitor PO 20 mg QHS [facility] Administration Clonidine HCl 0.1 mg 12/29/18 02:46 12/29/18 05:29 Catapres PO 0.1 mg TID PRN Administration Blood Pressure Clopidogrel Bisulfate 75 mg 12/29/18 10:00 12/30/18 09:56 Plavix PO 75 mg QDAY [facility] Administration Heparin Sodium (Porcine) 5,000 unit 12/28/18 22:00 12/30/18 09:56 Heparin SUB-Q 5,000 unit Q12HR [facility] Administration Piperacillin Sod/Tazobactam Sod 2.25 gm in 50 mls @ 100 mls/hr 12/29/18 14:00 12/30/18 06:20 Zosyn/Ns 2.25 Gm/50ml IV 100 mls/hr Q8HR [facility] Administration Sodium Chloride 100 mls @ 999 mls/hr 12/29/18 19:44 Nacl 0.9% IV ANTOINETTE PRN Hypotension Isosorbide Mononitrate 30 mg 12/29/18 10:00 12/30/18 09:56 Imdur PO 30 mg QDAY [facility] Administration Levofloxacin 500 mg 12/31/18 10:00 Levaquin PO Q48HR [facility] Lisinopril 5 mg 12/29/18 10:00 12/30/18 09:56 Zestril PO 5 mg QDAY [facility] Administration Metoprolol Tartrate 25 mg 12/30/18 11:00 Lopressor PO BID [facility] Miscellaneous Medication 630 mg 12/29/18 08:00 Ferric Citrate PO TIDWM [facility] Morphine Sulfate 2 mg 12/28/18 21:19 12/29/18 23:52 Morphine IV 2 mg Q4H PRN Administration Pain, Moderate (4-6) Mupirocin 1 applic 12/29/18 08:00 12/29/18 20:25 Bactroban 2% TP 1 applic TID [facility] Administration Nitroglycerin 0.4 mg 12/28/18 21:34 Nitrostat SL Q5M PRN Chest Pain Ondansetron HCl 4 mg 12/28/18 21:19 Zofran IV Q8H PRN Nausea And Vomiting Oxycodone/Acetaminophen 1 tab 12/29/18 02:46 12/30/18 04:31 Percocet 5/325 PO 1 tab Q6H PRN Administration Pain, Moderate (4-6) Pantoprazole Sodium 40 mg 12/29/18 10:00 12/30/18 09:57 Protonix PO 40 mg BID [facility] Administration Sodium Chloride 10 ml 12/28/18 22:00 12/30/18 09:57 Sodium Chloride Flush Syringe 10 Ml IV 10 ml BID [facility] Administration Sodium Chloride 10 ml 12/28/18 21:34 Sodium Chloride Flush Syringe 10 Ml IV PRN PRN LINE FLUSH
--- NOTE | 2018-12-30 11:43 | Discharge Summary ---
Providers - Providers Date of Admission: 12/28/18 21:19 Attending physician: ANAYELI FELIZ MD 12/28/18 Consult to Cardiac Rehabilitation [CONS] Routine Reason For Exam: Phase I 12/28/18 21:19 Consult to Physician [CONS] Routine Comment: Consulting Provider: BRITTANI NAYLOR Physician Instructions: Reason For Exam: chest pain 12/29/18 00:13 Consult to Dietitian/Nutrition [CONS] Routine Physician Instructions: Reason For Exam: Reason for Consult: Poor oral intake 12/29/18 06:22 Consult to Physician [CONS] Routine Comment: Consulting Provider: JULITO ROSARIO Physician Instructions: Reason For Exam: hd 12/29/18 06:24 Consult to Physician [CONS] Routine Comment: Consulting Provider: CHERY BURGER Physician Instructions: Reason For Exam: ight lower extremity with gangrene, s/p revasc 12/29/18 08:00 Consult to Wound/ET Nurse [CONS] Routine Reason For Exam: wound eval - sacral and right foot. 12/29/18 19:45 Consult to Dietitian/Nutrition [CONS] Routine Physician Instructions: Reason For Exam: dialysis patient, needs to be in high-protein diet Reason for Consult: Malnutrition Primary care physician: SERJIO ARREGUIN Hospitalization Condition: Fair Hospital course: aspiration pna Disposition: [id number]/[place]-03 [facility] CERT Exam - Constitutional Vitals: Temp Pulse Resp BP Pulse Ox 98.4 F 87 16 154/75 100 12/30/18 03:22 12/30/18 10:00 12/30/18 03:22 12/30/18 03:22 12/30/18 03:22 Plan Follow up with: SERJIO ARREGUIN MD [Primary Care Provider] - 3-5 Days MYNOR MCKEON DPM [Staff Physician] - 7 Days Forms: Discharge Signature Page
[2018-12-30] MEDS: K-DUR PO SCH (12:48)
[2018-12-30] MEDS: LOPRESSOR PO SCH ×2 (12:48→22:41)
[2018-12-30] MEDS ORDERED: NACL 0.9 (PRIMING MACHINE ONLY DIALYSIS) MC ONE ×2 (16:55→19:42)
[2018-12-30] MEDS: MORPHINE IV PRN ×2 (17:16→22:38)
[2018-12-31] MEDS: PERCOCET 5/325 PO PRN (01:23)
[2018-12-31] MEDS: CATAPRES PO PRN (01:23)
[2018-12-31] MEDS: ZOSYN/NS 2.25 GM/50ML 2.25 GM/50 ML BAG IV SCH (05:01)
[2018-12-31] MEDS: LEVAQUIN PO SCH ×2 (10:36→10:43)
[2018-12-31] MEDS: ECOTRIN PO SCH ×2 (10:36→10:43)
[2018-12-31] MEDS: K-DUR PO SCH ×2 (10:36→10:43)
[2018-12-31] MEDS: PLAVIX PO SCH ×2 (10:36→10:44)
[2018-12-31] MEDS: LOPRESSOR PO SCH ×2 (10:36→10:43)
[2018-12-31] MEDS: ZESTRIL PO SCH ×2 (10:36→10:44)
[2018-12-31] MEDS: IMDUR PO SCH ×2 (10:36→10:43)
[2018-12-31] MEDS: PROTONIX PO SCH ×2 (10:36→10:44)
[2018-12-31] MEDS: BACTROBAN 2% TP SCH (10:37)
[2018-12-31] MEDS: HEPARIN SUB-Q SCH (10:37)
[2018-12-31] MEDS: SODIUM CHLORIDE FLUSH SYRINGE 10 ML IV SCH (10:38)
--- NOTE | 2018-12-31 10:53 | Progress Note ---
Assessment and Plan PNA as per primary team Chest pain atypical patient is a poor historian and chest pain is very atypical unclear -EKG NAF, -Numerous previous stress tests negative - add lopressor and statin -Continue Imdur Nstemi type 2 -chronic and r/t ESRD ESRD on HD -Nephrology managing CAD -stable. Continue Imdur and Plavix Hypertension - Continue Imdur and lisinopril for now - monitor renal function closely and increase lopressor 50mg bid for better heart rate control and bp Type 2 diabetes - Primary team managing Anemia PVD rec: Patient had dialysis yesterday and no mention of discomfort patient is a poor historian and would just treat medically at this time for BP control Subjective Date of service: 12/31/18 Principal diagnosis: chest pain Interval history: pt lying in bed without issues Objective Vital Signs Temp Pulse Resp BP Pulse Ox 12/31/18 08:41 98.8 F 84 16 175/81 100 12/31/18 03:55 97.9 F 81 19 146/72 95 12/30/18 23:18 99.3 F 95 H 18 174/85 99 12/30/18 22:00 84 12/30/18 20:16 97.9 F 88 16 167/75 99 12/30/18 20:00 98.3 F 87 16 191/88 12/30/18 19:20 87 191/88 12/30/18 19:15 84 175/85 12/30/18 19:00 82 183/93 12/30/18 18:45 82 177/97 12/30/18 18:30 82 168/96 12/30/18 18:15 78 172/85 12/30/18 18:00 81 170/89 12/30/18 17:45 81 166/88 12/30/18 17:30 80 161/83 12/30/18 17:15 81 161/82 12/30/18 17:00 77 159/87 12/30/18 16:45 78 167/82 12/30/18 16:30 77 155/81 12/30/18 16:15 78 154/77 12/30/18 16:00 78 148/73 12/30/18 15:50 77 134/68 12/30/18 15:30 98.6 F 77 16 134/68 - Physical Examination General: No Apparent Distress HEENT: Positive: PERRL Neck: Positive: neck supple Cardiac: Positive: Reg Rate and Rhythm, Audible Murmur Lungs: Positive: clear to auscultation Neuro: Positive: Weakness Abdomen: Positive: Unremarkable Skin: Positive: Other (AV fistula - LUE) Extremities: Present: edema (Left arm - chronic ) - Imaging and Cardiology Echo: report reviewed (EF 65-70%, mod aortic and mitral stenosis, mild TR, mod phtn, small pericardial eff) - Telemetry EKG Rhythm: Sinus Rhythm
[2018-12-31 13:04] VITALS: BP 179/79
[2018-12-31] MEDS ORDERED: LOPRESSOR PO SCH (22:00)
== END 2018-12-31 13:50 | DRG 177 ==
LOC: ED 16:13 → 4A 21:19
PROVIDERS: ADMIT Internal Medicine; ATTEND Internal Medicine
PROC: 5A1D70Z Performance of Urinary Filtration, Intermittent, Less than 6 Hours Per Day (ICD-10-PCS; principal; 2018-12-30)
DX: J69.0 Pneumonitis due to inhalation of food and vomit (principal); I21.A1 Myocardial infarction type 2; N18.6 End stage renal disease; I12.0 Hypertensive chronic kidney disease with stage 5 chronic kidney disease or end stage renal disease; E11.52 Type 2 diabetes mellitus with diabetic peripheral angiopathy with gangrene; N25.81 Secondary hyperparathyroidism of renal origin; I27.20 Pulmonary hypertension, unspecified; D63.1 Anemia in chronic kidney disease; I25.10 Atherosclerotic heart disease of native coronary artery without angina pectoris; I08.0 Rheumatic disorders of both mitral and aortic valves; K21.9 Gastro-esophageal reflux disease without esophagitis; F03.90 Unspecified dementia, unspecified severity, without behavioral disturbance, psychotic disturbance, mood disturbance, and anxiety; E11.22 Type 2 diabetes mellitus with diabetic chronic kidney disease; Z99.2 Dependence on renal dialysis; I25.2 Old myocardial infarction; Z88.1 Allergy status to other antibiotic agents; Z79.899 Other long term (current) drug therapy; Z86.718 Personal history of other venous thrombosis and embolism; Z79.84 Long term (current) use of oral hypoglycemic drugs
CPT/HCPCS: 36415; 71045; 80048; 80053; 80061; 80074; 82550; 82553; 83880; 84484; 85007; 85025; 87116; 93005; 93010; 93306; 93922; 93925; 96365; G0378; A9270-GY; J0456; J0692; J0696; J0885; J1644; J2270; J2405; J2543; J2785; J3370; J7030; J7040; J7050

== ENCOUNTER 2019-01-13 16:30 | Inpatient (IN) | payer MEDICARE ==
[2019-01-13] MEDS ORDERED: MERREM/NS 500 MG/50 ML 500 MG/50 ML BAG IV ONE (17:49)
[2019-01-13] MEDS ORDERED: NACL 0.9% 250ML 250 ML IV ONE (17:50)
[2019-01-13 17:58] LABS: INR 1.26 (0.87-1.13)
--- NOTE | 2019-01-13 18:05 | XRay Report ---
CHEST 1 VIEW INDICATION / CLINICAL INFORMATION: hypertension. COMPARISON: 12/28/2018 FINDINGS: SUPPORT DEVICES: None. HEART / MEDIASTINUM: Mild/moderate cardiomegaly is stable. LUNGS / PLEURA: No significant pulmonary or pleural abnormality. No pneumothorax. ADDITIONAL FINDINGS: Vascular stent is noted projecting over the superior mediastinum unchanged in po sition. IMPRESSION: 1. Stable cardiomegaly. No acute pulmonary disease. Signer Name: Karmen Hennessy MD Signed: 01/13/2019 6:00 PM Workstation Name: [id number]
[2019-01-13 18:14] LABS: Albumin 2.9 g/dL (3.9-5); BUN/Creatinine Ratio 3; Blood Urea Nitrogen 5 mg/dL (7-17); Calcium 9.3 mg/dL (8.4-10.2); Hemolysis Index 4
[2019-01-13 18:20] LABS: Alanine Aminotransferase < 5 units/L (7-56); Bilirubin,Direct < 0.2 mg/dL (0-0.2)
--- NOTE | 2019-01-13 18:43 | Emergency Department Report ---
ED General Adult HPI - General Chief complaint: Medical Clearance Stated complaint: ELEVATED HEART RATE Time Seen by Provider: 01/13/19 17:08 Source: EMS Mode of arrival: Stretcher Limitations: Altered Mental Status - History of Present Illness Initial comments: 68 year old female who is unable to provide any historical information is sent from dialysis apparently because she had a tachycardia running between 120 to 130. No further specific information is transmitted. I do not know if they measured a temperature. Apparently the patient is said to have completed her dialysis however. She is unable to provide a history and barely able follow commands. She has been recently admitted to this hospital. She has been seen by vascular. She is found to have a non-salvageable right great toe secondary to peripheral vascular disease. She has had previous angioplasty. Plan was for vascular follow-up as an outpatient. I presume she was expected to auto amputate this toe eventually. 12/28/18 Consult to Cardiac Rehabilitation [CONS] Routine Reason For Exam: Phase I 12/28/18 21:19 Consult to Physician [CONS] Routine Comment: Consulting Provider: BRITTANI NAYLOR Physician Instructions: Reason For Exam: chest pain 12/29/18 00:13 Consult to Dietitian/Nutrition [CONS] Routine Physician Instructions: Reason For Exam: Reason for Consult: Poor oral intake 12/29/18 06:22 Consult to Physician [CONS] Routine Comment: Consulting Provider: JULITO ROSARIO Physician Instructions: Reason For Exam: hd 12/29/18 06:24 Consult to Physician [CONS] Routine Comment: Consulting Provider: CHERY BURGER Physician Instructions: Reason For Exam: ight lower extremity with gangrene, s/p revasc 12/29/18 08:00 Consult to Wound/ET Nurse [CONS] Routine Reason For Exam: wound eval - sacral and right foot. 12/29/18 19:45 Consult to Dietitian/Nutrition [CONS] Routine Physician Instructions: Reason For Exam: dialysis patient, needs to be in high-protein diet Reason for Consult: Malnutrition -: unknown Severity scale (0 -10): 0 - Related Data Home Medications Medication Instructions Recorded Confirmed Last Taken Ferric Citrate (Nf) [Auryxia] 630 mg PO TIDWM 09/05/18 12/28/18 11/18/18 cloNIDine [Catapres] 0.1 mg PO TID PRN 10/17/18 12/28/18 Unknown Previous Rx's Medication Instructions Recorded Last Taken Type Pantoprazole [Protonix TAB] 40 mg PO BID #60 tablet 10/03/18 10/16/18 20:00 Rx ISOSORBIDE MONOnitrate [Imdur ER] 30 mg PO QDAY #30 tablet 10/04/18 Unknown Rx Lisinopril [Zestril TAB] 5 mg PO DAILY #30 tablet 10/04/18 Unknown Rx Mupirocin [Bactroban 2% OINT] 1 applic TP TID #1 tube 10/29/18 Unknown Rx Clopidogrel [Plavix] 75 mg PO QDAY #30 tablet 11/28/18 Unknown Rx Clopidogrel [Plavix] 75 mg PO QDAY tablet 11/29/18 Unknown Rx oxyCODONE /ACETAMINOPHEN [Percocet 1 tab PO Q6H PRN #10 tablet 11/29/18 Unknown Rx 5/325 mg] Allergies Allergy/AdvReac Type Severity Reaction Status Date / Time erythromycin base Allergy Rash Verified 10/26/18 18:04 [Erythromycin Base] ED Review of Systems ROS: Stated complaint: ELEVATED HEART RATE Other details as noted in HPI Comment: Unobtainable due to pts medical conditions ED Past Medical Hx - Past Medical History Hx Hypertension: Yes Hx CVA: No Hx Heart Attack/AMI: No Hx Congestive Heart Failure: No Hx Diabetes: Yes Hx Deep Vein Thrombosis: Yes Hx Pulmonary Embolism: No Hx GERD: Yes Hx Liver Disease: No Hx Renal Disease: Yes (HD T,TH,Sat) Hx Sickle Cell Disease: No Hx Arthritis: No Hx Headaches / Migraines: No Hx Seizures: No Hx Kidney Stones: No Hx Psychiatric Treatment: No Hx Asthma: No Hx COPD: No Hx Tuberculosis: No Hx Dementia: No Hx HIV: No Additional medical history: anemia - Surgical History Hx Coronary Stent: No Hx Open Heart Surgery: No Hx Pacemaker: No Hx Internal Defibrillator: No Hx Cholecystectomy: No Hx Appendectomy: No Hx Breast Surgery: No Additional Surgical History: graft left arm - Social History Smoking Status: Unknown if ever smoked Substance Use Type: None - Medications Home Medications: Home Medications Medication Instructions Recorded Confirmed Last Taken Type Ferric Citrate (Nf) [Auryxia] 630 mg PO TIDWM 09/05/18 12/28/18 11/18/18 History Pantoprazole [Protonix TAB] 40 mg PO BID #60 tablet 10/03/18 12/28/18 10/16/18 20:00 Rx ISOSORBIDE MONOnitrate [Imdur ER] 30 mg PO QDAY #30 tablet 10/04/18 12/28/18 Unknown Rx Lisinopril [Zestril TAB] 5 mg PO DAILY #30 tablet 10/04/18 12/28/18 Unknown Rx cloNIDine [Catapres] 0.1 mg PO TID PRN 10/17/18 12/28/18 Unknown History Mupirocin [Bactroban 2% OINT] 1 applic TP TID #1 tube 10/29/18 12/28/18 Unknown Rx Clopidogrel [Plavix] 75 mg PO QDAY #30 tablet 11/28/18 12/28/18 Unknown Rx Clopidogrel [Plavix] 75 mg PO QDAY tablet 11/29/18 12/28/18 Unknown Rx oxyCODONE /ACETAMINOPHEN [Percocet 1 tab PO Q6H PRN #10 tablet 11/29/18 12/28/18 Unknown Rx 5/325 mg] ED Physical Exam - General Limitations: Altered Mental Status General appearance: alert, in no apparent distress - Head Head exam: Present: atraumatic, normocephalic - Eye Eye exam: Present: normal appearance. Absent: scleral icterus - ENT ENT exam: Present: mucous membranes moist - Neck Neck exam: Present: normal inspection - Respiratory Respiratory exam: Present: normal lung sounds bilaterally. Absent: respiratory distress - Cardiovascular Cardiovascular Exam: Present: normal rhythm, tachycardia. Absent: systolic murmur, diastolic murmur, rubs, gallop - GI/Abdominal GI/Abdominal exam: Present: soft, normal bowel sounds. Absent: distended, tenderness, guarding, rebound - Extremities Exam Extremities exam: Present: other (dry gangrene of the right great toe. Blistered and demarcated. The right leg has postinflammatory hyperpigmentation. It is not cold. Pulses are difficult to palpate bilaterally.) - Back Exam Back exam: Present: normal inspection - Neurological Exam Neurological exam: Present: altered, other (Limited exam possible secondary to mental status) - Psychiatric Psychiatric exam: Present: agitated - Skin Skin exam: Present: warm, dry, intact, normal color. Absent: rash ED Course Vital Signs 01/13/19 01/13/19 01/13/19 16:42 17:11 17:15 Pulse Rate 122 H Respiratory 18 16 14 Rate Blood Pressure 155/78 149/78 [Left] O2 Sat by Pulse 98 96 96 Oximetry - Reevaluation(s) Reevaluation #1: Discussed with hospitalist. Patient will be admitted further care and evaluation. Lactic acid level was not elevated. I do not know what her toe and foot look like prior. Again unable to visualize patient's sacral area where apparently she had a decubitus before. She will be admitted for further care and evaluation. I'll place an order for arterial studies of her legs. 01/13/19 18:51 ED Medical Decision Making - Lab Data Result diagrams: 01/13/19 18:30 01/13/19 17:42 Laboratory Results - last 24 hr 01/13/19 01/13/19 01/13/19 17:42 17:42 17:42 PT 15.5 H INR 1.26 H APTT 50.0 H Sodium 132 L Potassium 3.0 L Chloride 93.8 L Carbon Dioxide 20 L Anion Gap 21 BUN 5 L Creatinine 1.5 H Estimated GFR 42 BUN/Creatinine Ratio 3 Glucose 121 H Lactic Acid Calcium 9.3 Magnesium 2.00 Total Bilirubin 0.50 Direct Bilirubin < 0.2 Indirect Bilirubin 0.3 AST 10 ALT < 5 L Alkaline Phosphatase 123 NT-Pro-B Natriuret Pep 31189 H Total Protein 6.8 Albumin 2.9 L Albumin/Globulin Ratio 0.7 TSH 3.000 01/13/19 01/13/19 17:54 17:54 PT INR APTT Sodium Potassium Chloride Carbon Dioxide Anion Gap BUN Creatinine Estimated GFR BUN/Creatinine Ratio Glucose Lactic Acid 0.90 Calcium Magnesium 1.90 Total Bilirubin Direct Bilirubin Indirect Bilirubin AST ALT Alkaline Phosphatase NT-Pro-B Natriuret Pep Total Protein Albumin Albumin/Globulin Ratio TSH - EKG Data -: EKG Interpreted by Me EKG shows normal: sinus rhythm Rate: tachycardia - EKG Data Interpretation: nonspecific ST-T wave milady, other (1 PVC) - Radiology Data Radiology results: report reviewed (cardiomegaly, no acute disease) Critical care attestation.: If time is entered above; I have spent that time in minutes in the direct care of this critically ill patient, excluding procedure time. ED Disposition Clinical Impression: Dry gangrene, Peripheral vascular disease, Hypokalemia, SIRS (systemic inflammatory response syndrome), ESRD (end stage renal disease) on dialysis Sepsis Qualifiers: Sepsis type: sepsis due to unspecified organism Sepsis acute organ dysfunction status: without acute organ dysfunction Qualified Code(s): A41.9 - Sepsis, unspecified organism Altered mental status Qualifiers: Altered mental status type: unspecified Qualified Code(s): R41.82 - Altered mental status, unspecified Cardiomyopathy Qualifiers: Cardiomyopathy type: unspecified Qualified Code(s): I42.9 - Cardiomyopathy, unspecified Disposition: 09 OP ADMIT IP TO THIS HOSP Is pt being admited?: Yes Does the pt Need Aspirin: Yes Condition: Stable Referrals: PHYLLIS HIRSCH MD [Primary Care Provider] - 3-5 Days Time of Disposition: 19:45
[2019-01-13 18:54] LABS: Hematocrit 36.1 % (30.3-42.9); Hemoglobin 11.4 gm/dl (10.1-14.3); Mean Corpuscular HGB Conc 32 % (30-34); Mean Corpuscular Volume 84 fl (79-97); Platelet Count 269 K/mm3 (140-440); Red Blood Count 4.32 M/mm3 (3.65-5.03)
[2019-01-13] MEDS ORDERED: K-DUR PO ONE ×2 (18:55→19:51)
[2019-01-13] MEDS ORDERED: VANCOMYCIN PHARMACY TO DOSE IV SCH (19:00)
[2019-01-13 19:01] LABS: Red Cell Distribution Width 24.6 % (13.2-15.2)
[2019-01-13 19:13] LABS: Creatine Kinase MB 2.2 ng/mL (0.0-4.0)
[2019-01-13 19:35] LABS: Chol/HDL Ratio 3.51 %
--- NOTE | 2019-01-13 19:42 | Cat Scan Report ---
NONENHANCED CT SCAN OF THE BRAIN: INDICATION: Change in mental status TECHNIQUE: Routine CT head without contrast. Sagittal and coronal reformatted images were obtained. A ll CT scans at this location are performed using CT dose reduction for ALARA by means of automated ex posure control. COMPARISON: CT scans from 10/14/2018 and 01/05/2018. FINDINGS: BRAIN / INTRACRANIAL CONTENTS: No acute hemorrhage, mass effect, midline shift, hydrocephalus, or acu te, large territorial infarct. Chronic lacunae are seen in the right corpus stratum. Periventricular low density areas are seen probably due to microvascular faint angiopathy. CRANIOCERVICAL JUNCTION: No significant abnormality. ORBITS: No significant abnormality of visualized orbits. Seen in the previous CT scan, calcification is seen in the blood vessels probably arteries bilaterally. SINUSES / MASTOIDS: No significant abnormality of the visualized paranasal sinuses or mastoid air donita ls. ADDITIONAL FINDINGS: Seen in the CT scan, calcification is seen in the scalp blood vessels probably v eins. IMPRESSION: I do not see an acute parenchymal lesion in the brain CT findings remain unchanged. Signer Name: Annabella Lama MD Signed: 01/13/2019 7:38 PM Workstation Name: [id number]
[2019-01-13] MEDS ORDERED: BABY ASPIRIN PO ONE (19:47)
[2019-01-13] MEDS ORDERED: VANCOMYCIN 1,250 MG in NACL 0.9% 250ML 250 ML IV ONE (20:00)
[2019-01-13 20:29] LABS: Anisocytosis 2+; Basophils % (Manual) 0 % (0.0-1.8); Eosinophils % (Manual) 0 % (0.0-4.3); Large Platelets 1+; Ovalocytes 1+; Platelet Estimate Consistent w Auto; Total Cells Counted 200
--- NOTE | 2019-01-13 21:44 | History and Physical Report ---
History of Present Illness Date of examination: 01/13/19 History of present illness: 68 year old woman with Hypertension, diabetes, ESRD, CAD, PVD,right lower extremity with gangrene of the ankle status post recent revascularization,comes to the ER for evaluation. Patient is unable to give a history, apparently she was sent from dialysis because she was tachycardic with heart rate in the 150s. In the emergency room she was found to have gangrene of the right foot, started on vancomycin. Review of systems difficult to obtain PAST MEDICAL HISTORY: Hypertension, diabetes, ESRD, PVD,right lower extremity with gangrene of the ankle status post recent revascularization PAST SURGICAL HISTORY: FAMILY HISTORY:hypertension, diabetes SOCIAL HISTORY: Denies tobacco, drugs, alcohol Medications and Allergies Allergies Allergy/AdvReac Type Severity Reaction Status Date / Time erythromycin base Allergy Rash Verified 10/26/18 18:04 [Erythromycin Base] Home Medications Medication Instructions Recorded Confirmed Last Taken Type Ferric Citrate (Nf) [Auryxia] 630 mg PO TIDWM 09/05/18 12/28/18 11/18/18 History Pantoprazole [Protonix TAB] 40 mg PO BID #60 tablet 10/03/18 12/28/18 10/16/18 20:00 Rx ISOSORBIDE MONOnitrate [Imdur ER] 30 mg PO QDAY #30 tablet 10/04/18 12/28/18 Unknown Rx Lisinopril [Zestril TAB] 5 mg PO DAILY #30 tablet 10/04/18 12/28/18 Unknown Rx cloNIDine [Catapres] 0.1 mg PO TID PRN 10/17/18 12/28/18 Unknown History Mupirocin [Bactroban 2% OINT] 1 applic TP TID #1 tube 10/29/18 12/28/18 Unknown Rx Clopidogrel [Plavix] 75 mg PO QDAY #30 tablet 11/28/18 12/28/18 Unknown Rx Clopidogrel [Plavix] 75 mg PO QDAY tablet 11/29/18 12/28/18 Unknown Rx oxyCODONE /ACETAMINOPHEN [Percocet 1 tab PO Q6H PRN #10 tablet 11/29/18 12/28/18 Unknown Rx 5/325 mg] Active Meds: Active Medications Vancomycin HCl (Vancomycin/Ns 1 Gm/250 Ml) 1 gm in 250 mls @ 250 mls/hr IV Q24H [facility] Exam - Physical Exam Narrative exam: General Apperance: The patient sitting in bed no acute distress HEENT: Normocephalic, atraumatic. Pupils equally round and reactive to light, extraocular movement intact, and no sclericterus or JVD or thyromegaly or nodule. Neck supple, no carotid bruit, mucous membranes moist, no exudate or erythema Heart: S1-S2, regular is rhythm Lungs: Clear to auscultation bilaterally, breathing comfortable Abdomen: Positive bowel sounds, soft, nontender, nondistended, no organomegaly Extremities: No edema cyanosis clubbing Skin: Lower extremity and sacral wound, no rash, nodule, warm and dry Neuro:CN 2 -12 intact, motor/sensory intact, speech is fluent - Constitutional Vitals: Temp Pulse Resp BP Pulse Ox 98.7 F 117 H 13 170/83 83 L 01/13/19 20:54 01/13/19 20:00 01/13/19 20:00 01/13/19 20:00 01/13/19 20:00 Results - Labs CBC & Chem 7: 01/13/19 18:30 01/13/19 17:42 Labs: Abnormal lab results 01/13/19 01/13/19 01/13/19 Range/Units 17:42 17:42 17:54 WBC (4.5-11.0) K/mm3 MCH (28-32) pg RDW (13.2-15.2) % Seg Neuts % (Manual) (40.0-70.0) % Lymphocytes % (Manual) (13.4-35.0) % Seg Neutrophils # Man (1.8-7.7) K/mm3 Lymphocytes # (Manual) (1.2-5.4) K/mm3 Monocytes # (Manual) (0.0-0.8) K/mm3 PT 15.5 H (12.2-14.9) Sec. INR 1.26 H (0.87-1.13) APTT 50.0 H (24.2-36.6) Sec. Sodium 132 L (137-145) mmol/L Potassium 3.0 L (3.6-5.0) mmol/L Chloride 93.8 L (98-107) mmol/L Carbon Dioxide 20 L (22-30) mmol/L BUN 5 L (7-17) mg/dL Creatinine 1.5 H (0.7-1.2) mg/dL Glucose 121 H (65-100) mg/dL ALT < 5 L (7-56) units/L CK-MB (CK-2) Rel Index 5.2 H (0-4) Troponin T 0.288 H* (0.00-0.029) ng/mL NT-Pro-B Natriuret Pep 74231 H (0-900) pg/mL Albumin 2.9 L (3.9-5) g/dL Triglycerides 218 H (2-149) mg/dL HDL Cholesterol 37 L (40-59) mg/dL 01/13/19 Range/Units 18:30 WBC 32.2 H (4.5-11.0) K/mm3 MCH 26 L (28-32) pg RDW 24.6 H (13.2-15.2) % Seg Neuts % (Manual) 94.5 H (40.0-70.0) % Lymphocytes % (Manual) 1.0 L (13.4-35.0) % Seg Neutrophils # Man 30.4 H (1.8-7.7) K/mm3 Lymphocytes # (Manual) 0.3 L (1.2-5.4) K/mm3 Monocytes # (Manual) 1.3 H (0.0-0.8) K/mm3 PT (12.2-14.9) Sec. INR (0.87-1.13) APTT (24.2-36.6) Sec. Sodium (137-145) mmol/L Potassium (3.6-5.0) mmol/L Chloride (98-107) mmol/L Carbon Dioxide (22-30) mmol/L BUN (7-17) mg/dL Creatinine (0.7-1.2) mg/dL Glucose (65-100) mg/dL ALT (7-56) units/L CK-MB (CK-2) Rel Index (0-4) Troponin T (0.00-0.029) ng/mL NT-Pro-B Natriuret Pep (0-900) pg/mL Albumin (3.9-5) g/dL Triglycerides (2-149) mg/dL HDL Cholesterol (40-59) mg/dL - Imaging and Cardiology Chest x-ray: report reviewed CT Scan - head: report reviewed Assessment and Plan Assessment Sepsis Dry gangrene Abnormal cardiac enzymes Hypertension diabetes ESRD PVD Plan Admit to medicine Status post vancomycin, start Zosyn Follow blood cultures, vascular was consulted to see the patient Consult renal, check fingersticks, initiate insulin sliding scale Cardiac enzymes, echo Continue appropiate outpatient medications DVT prophylaxis
[2019-01-14 00:01] LABS: Creatine Kinase MB 3.6 ng/mL (0.0-4.0)
[2019-01-14] MEDS: ZOSYN/NS 2.25 GM/50ML 2.25 GM/50 ML BAG IV SCH ×4 (00:53→21:48)
[2019-01-14] MEDS: TYLENOL PO PRN (06:15)
[2019-01-14 07:48] LABS: Mean Corpuscular HGB Conc 30 % (30-34); Mean Corpuscular Volume 87 fl (79-97); Platelet Count 263 K/mm3 (140-440); Red Blood Count 4.22 M/mm3 (3.65-5.03)
[2019-01-14 07:55] LABS: Hematocrit 36.5 % (30.3-42.9); Hemoglobin 10.8 gm/dl (10.1-14.3); Red Cell Distribution Width 24.9 % (13.2-15.2)
[2019-01-14] MEDS: HumaLOG SUB-Q SCH ×4 (08:00→21:03)
[2019-01-14 08:05] LABS: Creatine Kinase MB 4.4 ng/mL (0.0-4.0)
[2019-01-14 08:14] LABS: Calcium 9.9 mg/dL (8.4-10.2)
--- NOTE | 2019-01-14 09:29 | Progress Note ---
Assessment and Plan Assessment and plan: 68 year old woman with Hypertension, diabetes, ESRD, CAD, PVD,right lower extremity with gangrene of the ankle status post recent revascularization,comes to the ER for evaluation. Patient is unable to give a history, apparently she was sent from dialysis because she was tachycardic with heart rate in the 150s. In the emergency room she was found to have gangrene of the right foot, started on vancomycin. Review of systems difficult to obtain Recent atrial doppler done and did not reveal any possibility to salvage toe. Previous angiogram result Impression: 1) Aortogram and right lower extremity angiography demonstrating multifocal 80-90% stenosis within the proximal and mid SFA with complete occlusion of the mid to distal SFA and reconstitution of the p opliteal artery and distal SFA through collaterals. There is single vessel runoff to the foot throughout peroneal artery. 2) Attempted revascularization from both an antegrade and pedal approach as described without success. 3) The patient will need to be rescheduled for revascularization procedure on her right leg with anesthesia from both an antegrade and popliteal artery approach. Acute Right leg limb ischemia : Continue palvix, Vascular consulted. ?Ampuation. Woundcare consulted Dry gangrene Type 2 TX: Conservative management Leukocytosis- No evidence of sepsis. Continue abx, consult ID Diabetic foot nonhealing ulcer: Vascular re-evaluation, ?need for ampuation Decubitus ulcer at least stage 4, poa: consulted Wound care, HTN: continue antihypertensives ESRD on Hemodialysis TTS: Nephrology is following, monitor bmp closely, renal diet Diabetes Mellitus: continue insulin and keep blood glucose less than 160 Anemia of chronic disease: monitored cbc closely and was stable Severe Protien calorie Malnutrition, poa: PAD- Prox Superficial Femoral Artery associated with critical limb ischemia, see above: Vascular Surgeon is managing, s/p Re-vascularization procedure of her right leg 11/27/18 with good result. d/w Dr. Jones, Started on Plavix Chronic edema of left upper extremity: The patient has had multiple workup with no find is a student reason why. This also houses her AV graft. Poor prognosis Discussed with the patient. a History Interval history: Patient seen and examined, appears chronically ill. shows me she can move left leg, denies pain, fever, nausea or vomiting. Hospitalist Physical - Physical exam Narrative exam: General Apperance: The patient sitting in bed no acute distress HEENT: Normocephalic, atraumatic. Pupils equally round and reactive to light, extraocular movement intact, and no sclericterus or JVD or thyromegaly or nodule. Neck supple, no carotid bruit, mucous membranes moist, no exudate or erythema Heart: S1-S2, regular is rhythm Lungs: Clear to auscultation bilaterally, breathing comfortable Abdomen: Positive bowel sounds, soft, nontender, nondistended, no organomegaly Extremities: No edema cyanosis clubbing Skin: Lower extremity and sacral wound,-stage 4 Multiple necrotic skin lesions no rash, nodule, warm and dry Neuro:CN 2 -12 intact, motor/sensory intact, speech is fluent - Constitutional Vitals: Temp Pulse Resp BP Pulse Ox 97.9 F 110 H 18 124/62 100 01/14/19 03:58 01/14/19 08:03 01/14/19 08:03 01/14/19 03:58 01/14/19 03:58 Results - Labs CBC & Chem 7: 01/14/19 07:21 01/14/19 07:21 Labs: Laboratory Last Values WBC 30.7 K/mm3 (4.5-11.0) H 01/14/19 07:21 RBC 4.22 M/mm3 (3.65-5.03) 01/14/19 07:21 Hgb 10.8 gm/dl (10.1-14.3) 01/14/19 07:21 Hct 36.5 % (30.3-42.9) 01/14/19 07:21 MCV 87 fl (79-97) 01/14/19 07:21 MCH 26 pg (28-32) L 01/14/19 07:21 MCHC 30 % (30-34) 01/14/19 07:21 RDW 24.9 % (13.2-15.2) H 01/14/19 07:21 Plt Count 263 K/mm3 (140-440) 01/14/19 07:21 Add Manual Diff Complete 01/13/19 18:30 Total Counted 200 01/13/19 18:30 Seg Neutrophils % Financial Service Representative 01/13/19 18:30 Seg Neuts % (Manual) 94.5 % (40.0-70.0) H 01/13/19 18:30 0 % 01/13/19 18:30 1.0 % (13.4-35.0) L 01/13/19 18:30 Reactive Lymphs % (Man) 0 % 01/13/19 18:30 4.0 % (0.0-7.3) 01/13/19 18:30 0 % (0.0-4.3) 01/13/19 18:30 0 % (0.0-1.8) 01/13/19 18:30 0.5 % 01/13/19 18:30 0 % 01/13/19 18:30 0 % 01/13/19 18:30 0 % 01/13/19 18:30 Nucleated RBC % Not Reportable 01/13/19 18:30 Seg Neutrophils # Man 30.4 K/mm3 (1.8-7.7) H 01/13/19 18:30 Band Neutrophils # 0.0 K/mm3 01/13/19 18:30 0.3 K/mm3 (1.2-5.4) L 01/13/19 18:30 Abs React Lymphs (Man) 0.0 K/mm3 01/13/19 18:30 1.3 K/mm3 (0.0-0.8) H 01/13/19 18:30 0.0 K/mm3 (0.0-0.4) 01/13/19 18:30 0.0 K/mm3 (0.0-0.1) 01/13/19 18:30 0.2 K/mm3 01/13/19 18:30 0.0 K/mm3 01/13/19 18:30 0.0 K/mm3 01/13/19 18:30 Blast Cells # 0.0 K/mm3 01/13/19 18:30 WBC Morphology Not Reportable 01/13/19 18:30 Hypersegmented Neuts Not Reportable 01/13/19 18:30 Hyposegmented Neuts Not Reportable 01/13/19 18:30 Hypogranular Neuts Not Reportable 01/13/19 18:30 Not Reportable 01/13/19 18:30 Not Reportable 01/13/19 18:30 Not Reportable 01/13/19 18:30 Not Reportable 01/13/19 18:30 Not Reportable 01/13/19 18:30 Not Reportable 01/13/19 18:30 Consistent w auto 08/24/19 18:30 Not Reportable 01/13/19 18:30 Plt Clumps, EDTA Not Reportable 01/13/19 18:30 1+ 01/13/19 18:30 Not Reportable 01/13/19 18:30 Not Reportable 01/13/19 18:30 Plt Morphology Comment Not Reportable 01/13/19 18:30 RBC Morphology Not Reportable 01/13/19 18:30 Dimorphic RBCs Not Reportable 01/13/19 18:30 Not Reportable 01/13/19 18:30 Not Reportable 01/13/19 18:30 Not Reportable 01/13/19 18:30 2+ 01/13/19 18:30 Not Reportable 01/13/19 18:30 Not Reportable 01/13/19 18:30 Not Reportable 01/13/19 18:30 Not Reportable 01/13/19 18:30 Not Reportable 01/13/19 18:30 Not Reportable 01/13/19 18:30 Not Reportable 01/13/19 18:30 1+ 01/13/19 18:30 Not Reportable 01/13/19 18:30 Not Reportable 01/13/19 18:30 Not Reportable 01/13/19 18:30 Not Reportable 01/13/19 18:30 Not Reportable 01/13/19 18:30 Not Reportable 01/13/19 18:30 1+ 01/13/19 18:30 Acanthocytes (Spur) Not Reportable 01/13/19 18:30 Rouleaux Not Reportable 01/13/19 18:30 Not Reportable 01/13/19 18:30 Not Reportable 01/13/19 18:30 Not Reportable 01/13/19 18:30 Not Reportable 01/13/19 18:30 Hem Pathologist Commnt No 01/13/19 18:30 PT 15.5 Sec. (12.2-14.9) H 01/13/19 17:42 INR 1.26 (0.87-1.13) H 01/13/19 17:42 APTT 50.0 Sec. (24.2-36.6) H 01/13/19 17:42 Sodium 138 mmol/L (137-145) 01/14/19 07:21 Potassium 3.5 mmol/L (3.6-5.0) L 01/14/19 07:21 Chloride 98.3 mmol/L (98-107) 01/14/19 07:21 Carbon Dioxide 18 mmol/L (22-30) L 01/14/19 07:21 25 mmol/L 01/14/19 07:21 BUN 10 mg/dL (7-17) 01/14/19 07:21 2.7 mg/dL (0.7-1.2) H D 01/14/19 07:21 Estimated GFR 21 ml/min 01/14/19 07:21 4 % 01/14/19 07:21 Glucose 117 mg/dL (65-100) H 01/14/19 07:21 POC Glucose 121 (70-105) H 01/14/19 07:46 Lactic Acid 0.90 mmol/L (0.7-2.0) 01/13/19 17:54 Calcium 9.9 mg/dL (8.4-10.2) 01/14/19 07:21 Magnesium 1.90 mg/dL (1.7-2.3) 01/13/19 17:54 0.50 mg/dL (0.1-1.2) 01/13/19 17:42 < 0.2 mg/dL (0-0.2) 01/13/19 17:42 0.3 mg/dL 01/13/19 17:42 AST 10 units/L (5-40) 01/13/19 17:42 ALT < 5 units/L (7-56) L 01/13/19 17:42 123 units/L (35-129) 01/13/19 17:42 73 units/L (30-135) 01/14/19 07:21 CK-MB (CK-2) 4.4 ng/mL (0.0-4.0) H 01/14/19 07:21 CK-MB (CK-2) Rel Index 6.0 (0-4) H 01/14/19 07:21 0.335 ng/mL (0.00-0.029) H* D 01/14/19 07:21 NT-Pro-B Natriuret Pep 23645 pg/mL (0-900) H 01/13/19 17:42 6.8 g/dL (6.3-8.2) 01/13/19 17:42 2.9 g/dL (3.9-5) L 01/13/19 17:42 0.7 % 01/13/19 17:42 Triglycerides 218 mg/dL (2-149) H 01/13/19 17:54 Cholesterol 130 mg/dL (50-199) 01/13/19 17:54 50 mg/dL (50-130) 01/13/19 17:54 37 mg/dL (40-59) L 01/13/19 17:54 3.51 % 01/13/19 17:54 TSH 3.000 mlU/mL (0.270-4.200) 01/13/19 17:42 Active Medications - Current Medications Current Medications: Generic Name Dose Route Start Last Admin Trade Name Freq PRN Reason Stop Dose Admin Acetaminophen 650 mg 01/13/19 22:37 01/14/19 06:15 Tylenol PO 650 mg Q4H PRN Administration Pain MILD(1-3)/Fever >100.5/PEREZ Dextrose 50 ml 01/13/19 22:40 D50w (25gm) Syringe IV PRN PRN Hypoglycemia Enoxaparin Sodium 30 mg 01/14/19 10:00 Lovenox SUB-Q QDAY [facility] Vancomycin HCl 1 gm in 250 mls @ 250 mls/hr 01/14/19 18:00 Vancomycin/Ns 1 Gm/250 Ml IV Q24H [facility] Piperacillin Sod/Tazobactam Sod 2.25 gm in 50 mls @ 100 mls/hr 01/13/19 23:00 01/14/19 06:14 Zosyn/Ns 2.25 Gm/50ml IV 100 mls/hr Q8HR [facility] Administration Protocol Insulin Human Lispro 0 unit 01/14/19 07:30 01/14/19 08:00 Humalog SUB-Q Not Given ACHS [facility] Protocol Ondansetron HCl 4 mg 01/13/19 22:37 Zofran IV Q8H PRN Nausea And Vomiting Sodium Chloride 10 ml 01/14/19 10:00 Sodium Chloride Flush Syringe 10 Ml IV BID [place] Sodium Chloride 10 ml 01/13/19 22:37 Sodium Chloride Flush Syringe 10 Ml IV PRN PRN LINE FLUSH
[2019-01-14] MEDS ORDERED: CATAPRES PO PRN (09:31)
[2019-01-14] MEDS ORDERED: IMDUR PO SCH (10:00)
[2019-01-14] MEDS: IMDUR PO SCH (10:16)
[2019-01-14] MEDS: PLAVIX PO SCH (10:16)
[2019-01-14] MEDS: SODIUM CHLORIDE FLUSH SYRINGE 10 ML IV SCH ×2 (10:17→21:03)
[2019-01-14] MEDS: ZESTRIL PO SCH (10:17)
[2019-01-14] MEDS: LOVENOX SUB-Q SCH (10:17)
[2019-01-14] MEDS: PROTONIX PO SCH ×2 (10:17→21:03)
[2019-01-14] MEDS ORDERED: NACL 0.9% 1000 ML 1,000 ML IV ONE (11:02)
--- NOTE | 2019-01-14 11:04 | Consultation ---
History of Present Illness - Reason for Consult Consult date: 01/14/19 gangrene Requesting physician: MIKALE BURGESS - History of Present Illness HPI: 68yo female with multiple medical problems s/p Right leg endovascular revascularization 11/2018 for non-healing foot ulcers currently hospitalized with tachycardia and elevated WBC. Patient denies any fevers/chills or drainage from the foot. The patient has experienced diarrhea over the past few days. Patient has some pain in the right great toe that is known to have dry gangrene. The patient is currently non-ambulatory due to generalized weakness. PE: NAD, A&Ox3 non-labored respirations RRR palpable fem pulses bilat dopplerable PT and AT signals at the ankle on the right 2 ulcers noted on the dorsum of the right foot have clean wound edges and healing dry gangrene noted of the right great toe Plan: Patient with no evidence of purulence or drainage from the right foot that would explain WBC of 30 right foot seems to be well perfused, will order arterial duplex patient to benefit from General Surg/wound care consult for evaluation of need for debridement/limited foot amputation will continue to follow Medications and Allergies Allergies Allergy/AdvReac Type Severity Reaction Status Date / Time erythromycin base Allergy Rash Verified 10/26/18 18:04 [Erythromycin Base] Home Medications Medication Instructions Recorded Confirmed Last Taken Type Ferric Citrate (Nf) [Auryxia] 630 mg PO TIDWM 09/05/18 12/28/18 11/18/18 History Pantoprazole [Protonix TAB] 40 mg PO BID #60 tablet 10/03/18 12/28/18 10/16/18 20:00 Rx ISOSORBIDE MONOnitrate [Imdur ER] 30 mg PO QDAY #30 tablet 10/04/18 12/28/18 Unknown Rx Lisinopril [Zestril TAB] 5 mg PO DAILY #30 tablet 10/04/18 12/28/18 Unknown Rx cloNIDine [Catapres] 0.1 mg PO TID PRN 10/17/18 12/28/18 Unknown History Mupirocin [Bactroban 2% OINT] 1 applic TP TID #1 tube 10/29/18 12/28/18 Unknown Rx Clopidogrel [Plavix] 75 mg PO QDAY #30 tablet 11/28/18 12/28/18 Unknown Rx Clopidogrel [Plavix] 75 mg PO QDAY tablet 11/29/18 12/28/18 Unknown Rx oxyCODONE /ACETAMINOPHEN [Percocet 1 tab PO Q6H PRN #10 tablet 11/29/18 12/28/18 Unknown Rx 5/325 mg] Active Meds: Active Medications Acetaminophen (Tylenol) 650 mg PO Q4H PRN PRN Reason: Pain MILD(1-3)/Fever >100.5/PEREZ Last Admin: 01/14/19 06:15 Dose: 650 mg Documented by: Clonidine HCl (Catapres) 0.1 mg PO TID PRN PRN Reason: Blood Pressure Clopidogrel Bisulfate (Plavix) 75 mg PO QDAY [facility] Last Admin: 01/14/19 10:16 Dose: 75 mg Documented by: Dextrose (D50w (25gm) Syringe) 50 ml IV PRN PRN PRN Reason: Hypoglycemia Enoxaparin Sodium (Lovenox) 30 mg SUB-Q QDAY [facility] Last Admin: 01/14/19 10:17 Dose: 30 mg Documented by: Vancomycin HCl (Vancomycin/Ns 1 Gm/250 Ml) 1 gm in 250 mls @ 250 mls/hr IV Q24H [facility] Piperacillin Sod/Tazobactam Sod (Zosyn/Ns 2.25 Gm/50ml) 2.25 gm in 50 mls @ 100 mls/hr IV Q8HR [facility]; Protocol Last Admin: 01/14/19 06:14 Dose: 100 mls/hr Documented by: Insulin Human Lispro (Humalog) 0 unit SUB-Q ACHS [facility]; Protocol Last Admin: 01/14/19 08:00 Dose: Not Given Documented by: Isosorbide Mononitrate (Imdur) 30 mg PO DAILY [facility] Last Admin: 01/14/19 10:16 Dose: 30 mg Documented by: Lisinopril (Zestril) 5 mg PO DAILY [facility] Last Admin: 01/14/19 10:17 Dose: 5 mg Documented by: Miscellaneous Medication (Ferric Citrate) 630 mg PO TIDWM [facility] Mupirocin (Bactroban 2%) 1 applic TP TID [facility] Ondansetron HCl (Zofran) 4 mg IV Q8H PRN PRN Reason: Nausea And Vomiting Oxycodone/Acetaminophen (Percocet 5/325) 1 tab PO Q6H PRN PRN Reason: Pain, Moderate (4-6) Pantoprazole Sodium (Protonix) 40 mg PO BID [facility] Last Admin: 01/14/19 10:17 Dose: 40 mg Documented by: Sodium Chloride (Sodium Chloride Flush Syringe 10 Ml) 10 ml IV BID [facility] Last Admin: 01/14/19 10:17 Dose: 10 ml Documented by: Sodium Chloride (Sodium Chloride Flush Syringe 10 Ml) 10 ml IV PRN PRN PRN Reason: LINE FLUSH Exam - Constitutional Vitals: Temp Pulse Resp BP Pulse Ox 97.5 F L 105 H 16 119/60 100 01/14/19 08:32 01/14/19 08:32 01/14/19 08:32 01/14/19 08:32 01/14/19 10:00 Results - Labs CBC & Chem 7: 01/14/19 07:21 01/14/19 07:21 Labs: Abnormal lab results 01/13/19 01/13/19 01/13/19 Range/Units 17:42 17:42 17:54 WBC (4.5-11.0) K/mm3 MCH (28-32) pg RDW (13.2-15.2) % Seg Neuts % (Manual) (40.0-70.0) % Lymphocytes % (Manual) (13.4-35.0) % Seg Neutrophils # Man (1.8-7.7) K/mm3 Lymphocytes # (Manual) (1.2-5.4) K/mm3 Monocytes # (Manual) (0.0-0.8) K/mm3 PT 15.5 H (12.2-14.9) Sec. INR 1.26 H (0.87-1.13) APTT 50.0 H (24.2-36.6) Sec. Sodium 132 L (137-145) mmol/L Potassium 3.0 L (3.6-5.0) mmol/L Chloride 93.8 L (98-107) mmol/L Carbon Dioxide 20 L (22-30) mmol/L BUN 5 L (7-17) mg/dL Creatinine 1.5 H (0.7-1.2) mg/dL Glucose 121 H (65-100) mg/dL POC Glucose (70-105) ALT < 5 L (7-56) units/L CK-MB (CK-2) (0.0-4.0) ng/mL CK-MB (CK-2) Rel Index 5.2 H (0-4) Troponin T 0.288 H* (0.00-0.029) ng/mL NT-Pro-B Natriuret Pep 02668 H (0-900) pg/mL Albumin 2.9 L (3.9-5) g/dL Triglycerides 218 H (2-149) mg/dL HDL Cholesterol 37 L (40-59) mg/dL 01/13/19 01/13/19 01/14/19 Range/Units 18:30 23:03 07:21 WBC 32.2 H 30.7 H (4.5-11.0) K/mm3 MCH 26 L 26 L (28-32) pg RDW 24.6 H 24.9 H (13.2-15.2) % Seg Neuts % (Manual) 94.5 H (40.0-70.0) % Lymphocytes % (Manual) 1.0 L (13.4-35.0) % Seg Neutrophils # Man 30.4 H (1.8-7.7) K/mm3 Lymphocytes # (Manual) 0.3 L (1.2-5.4) K/mm3 Monocytes # (Manual) 1.3 H (0.0-0.8) K/mm3 PT (12.2-14.9) Sec. INR (0.87-1.13) APTT (24.2-36.6) Sec. Sodium (137-145) mmol/L Potassium (3.6-5.0) mmol/L Chloride (98-107) mmol/L Carbon Dioxide (22-30) mmol/L BUN (7-17) mg/dL Creatinine (0.7-1.2) mg/dL Glucose (65-100) mg/dL POC Glucose (70-105) ALT (7-56) units/L CK-MB (CK-2) (0.0-4.0) ng/mL CK-MB (CK-2) Rel Index 6.2 H (0-4) Troponin T 0.259 H* (0.00-0.029) ng/mL NT-Pro-B Natriuret Pep (0-900) pg/mL Albumin (3.9-5) g/dL Triglycerides (2-149) mg/dL HDL Cholesterol (40-59) mg/dL 01/14/19 01/14/19 01/14/19 Range/Units 07:21 07:21 07:46 WBC (4.5-11.0) K/mm3 MCH (28-32) pg RDW (13.2-15.2) % Seg Neuts % (Manual) (40.0-70.0) % Lymphocytes % (Manual) (13.4-35.0) % Seg Neutrophils # Man (1.8-7.7) K/mm3 Lymphocytes # (Manual) (1.2-5.4) K/mm3 Monocytes # (Manual) (0.0-0.8) K/mm3 PT (12.2-14.9) Sec. INR (0.87-1.13) APTT (24.2-36.6) Sec. Sodium (137-145) mmol/L Potassium 3.5 L (3.6-5.0) mmol/L Chloride (98-107) mmol/L Carbon Dioxide 18 L (22-30) mmol/L BUN (7-17) mg/dL Creatinine 2.7 H D (0.7-1.2) mg/dL Glucose 117 H (65-100) mg/dL POC Glucose 121 H (70-105) ALT (7-56) units/L CK-MB (CK-2) 4.4 H (0.0-4.0) ng/mL CK-MB (CK-2) Rel Index 6.0 H (0-4) Troponin T 0.335 H* D (0.00-0.029) ng/mL NT-Pro-B Natriuret Pep (0-900) pg/mL Albumin (3.9-5) g/dL Triglycerides (2-149) mg/dL HDL Cholesterol (40-59) mg/dL
[2019-01-14 11:06] LABS: Total Cells Counted 100
[2019-01-14 11:07] LABS: Basophils % (Manual) 0 % (0.0-1.8); Monocytes % (Manual) 0 % (0.0-7.3)
[2019-01-14 11:08] LABS: Platelet Estimate Consistent w Auto
--- NOTE | 2019-01-14 11:54 | Consultation ---
History of Present Illness - Reason for Consult Consult date: 01/14/19 Multiple infected lower ectremity ulcers Requesting physician: MARILYN HASSAN - History of Present Illness This patient is a 68 year old woman with a past medical history of Hypertension, diabetes, ESRD, CAD PVD, right lower extremity gangrene, that is known to ID service from previous admission on 11/28/18 for right leg pain related to acute critical lower extremity ischemia. .She underwent an aortogram and right lower extremity angiography on 11/22/2018. On 11/27/2018, she underwent revascularization by Dr. Jones. She wa discharged on Docycycline and Keflex for 5 days. She now presents to [facility] on 01/13/19, sent from hemodylisis, and found to have gangrene of the right foot. On admission WBC 32.2, Creatinine 2.7, Temperature 98.7, HR 122, BP 149/78. Chest xray show no consolidation.. Blood cultures in progress. General: no fever,, chills, nightsweats, unintentional weight change, or change in appetite Cutaneous: no rash, pruritus Head: no headaches or injury Eyes: no changes in vision, eye pain, double vision Ears: no ear pain, ear discharge, ringing or hearing loss Nose: no nose bleeding, stuffiness Mouth & throat: no bleeding gums, no horseness, no dental problems, or swollen glands Neck: no pain, node enlargement/lumps, tyroid enlargement or tenderness Respiratory: no cough, wheezing, sputum, hemoptysis, pleuritic chest pain Cardiovascular: no chest pain, leg edema, cyanosis, UP, orthopnea Musculoskeletal: Right great toe dry gangrene, 2 superficial ulcerations on dorsum of right foot.. Right foot tenderness. Gastrointestinal: no nausea, vomiting, hematemesis, diarrhea, constipation, melena, bright red blood in stools, fecal incontinence, jaundice Genitourinary/Reproductive: no frequent urination, no dysuria, hematuria, incontinence Neurogical: no seizures, no headaches, no weakness, no paresthesias, no loss of speech or vision; no memory loss, no vertigo, no tremors, no numbness Psychiatric: stable mood; no excessive anxiety, sadness or moodiness Medications and Allergies Allergies Allergy/AdvReac Type Severity Reaction Status Date / Time erythromycin base Allergy Rash Verified 10/26/18 18:04 [Erythromycin Base] Home Medications Medication Instructions Recorded Confirmed Last Taken Type Ferric Citrate (Nf) [Auryxia] 630 mg PO TIDWM 09/05/18 12/28/18 11/18/18 History Pantoprazole [Protonix TAB] 40 mg PO BID #60 tablet 10/03/18 12/28/18 10/16/18 20:00 Rx ISOSORBIDE MONOnitrate [Imdur ER] 30 mg PO QDAY #30 tablet 10/04/18 12/28/18 Unknown Rx Lisinopril [Zestril TAB] 5 mg PO DAILY #30 tablet 10/04/18 12/28/18 Unknown Rx cloNIDine [Catapres] 0.1 mg PO TID PRN 10/17/18 12/28/18 Unknown History Mupirocin [Bactroban 2% OINT] 1 applic TP TID #1 tube 10/29/18 12/28/18 Unknown Rx Clopidogrel [Plavix] 75 mg PO QDAY #30 tablet 11/28/18 12/28/18 Unknown Rx Clopidogrel [Plavix] 75 mg PO QDAY tablet 11/29/18 12/28/18 Unknown Rx oxyCODONE /ACETAMINOPHEN [Percocet 1 tab PO Q6H PRN #10 tablet 11/29/18 12/28/18 Unknown Rx 5/325 mg] Active Meds: Active Medications Acetaminophen (Tylenol) 650 mg PO Q4H PRN PRN Reason: Pain MILD(1-3)/Fever >100.5/PEREZ Last Admin: 01/14/19 06:15 Dose: 650 mg Documented by: Clonidine HCl (Catapres) 0.1 mg PO TID PRN PRN Reason: Blood Pressure Clopidogrel Bisulfate (Plavix) 75 mg PO QDAY [facility] Last Admin: 01/14/19 10:16 Dose: 75 mg Documented by: Dextrose (D50w (25gm) Syringe) 50 ml IV PRN PRN PRN Reason: Hypoglycemia Enoxaparin Sodium (Lovenox) 30 mg SUB-Q QDAY [facility] Last Admin: 01/14/19 10:17 Dose: 30 mg Documented by: Vancomycin HCl (Vancomycin/Ns 1 Gm/250 Ml) 1 gm in 250 mls @ 250 mls/hr IV Q24H [facility] Piperacillin Sod/Tazobactam Sod (Zosyn/Ns 2.25 Gm/50ml) 2.25 gm in 50 mls @ 100 mls/hr IV Q8HR [facility]; Protocol Last Admin: 01/14/19 06:14 Dose: 100 mls/hr Documented by: Insulin Human Lispro (Humalog) 0 unit SUB-Q ACHS [facility]; Protocol Last Admin: 01/14/19 08:00 Dose: Not Given Documented by: Isosorbide Mononitrate (Imdur) 30 mg PO DAILY [facility] Last Admin: 01/14/19 10:16 Dose: 30 mg Documented by: Lisinopril (Zestril) 5 mg PO DAILY [facility] Last Admin: 01/14/19 10:17 Dose: 5 mg Documented by: Miscellaneous Medication (Ferric Citrate) 630 mg PO TIDWM [facility] Mupirocin (Bactroban 2%) 1 applic TP TID [facility] Ondansetron HCl (Zofran) 4 mg IV Q8H PRN PRN Reason: Nausea And Vomiting Oxycodone/Acetaminophen (Percocet 5/325) 1 tab PO Q6H PRN PRN Reason: Pain, Moderate (4-6) Pantoprazole Sodium (Protonix) 40 mg PO BID [facility] Last Admin: 01/14/19 10:17 Dose: 40 mg Documented by: Sodium Chloride (Sodium Chloride Flush Syringe 10 Ml) 10 ml IV BID [facility] Last Admin: 01/14/19 10:17 Dose: 10 ml Documented by: Sodium Chloride (Sodium Chloride Flush Syringe 10 Ml) 10 ml IV PRN PRN PRN Reason: LINE FLUSH Physical Examination - Physical Exam Narrative exam: Constitutional: Alert, cooperative. No acute distress Head, Ears, Nose: Normocephalic, atraumatic. External ears, nose normal Eyes: Conjunctivae/corneas clear. No icterus. No ptosis. Neck: Supple, no meningeal signs Oral: dentition poor. No thrush. oral mucosa moist Cardiovascular: S1, S2 normal. Respiratory: Good air entry, clear to auscultation bilaterally GI: Soft, non-tender; bowel sounds normal. No peritoneal signs Musculoskeletal: No pedal edema, no cyanosis. Skin: bilateral lower extremity with right toe dry gangrene. Bilateral lower extremity with dystrophic toenails. 2 superficial ulcerations on right dorsum. Right lower extremity tenderness. Hem/Lymphatic: No palpable cervical or supraclavicular nodes. No lymphangitis Psych: Mood ok. Affect normal Neurological: Awake, alert, oriented. - Constitutional Vitals: Vital Signs Temp Pulse Resp BP Pulse Ox 97.5 F L 105 H 16 119/60 100 01/14/19 08:32 01/14/19 08:32 01/14/19 08:32 01/14/19 08:32 01/14/19 10:00 Temperature -Last 24 Hours Temperature 97.5 F Temperature 97.9 F Temperature 98.7 F Results - Labs CBC & Chem 7: 01/14/19 07:21 01/14/19 07:21 Labs: Abnormal lab results 01/13/19 01/13/19 01/13/19 Range/Units 17:42 17:42 17:54 WBC (4.5-11.0) K/mm3 MCH (28-32) pg RDW (13.2-15.2) % Seg Neuts % (Manual) (40.0-70.0) % Lymphocytes % (Manual) (13.4-35.0) % Seg Neutrophils # Man (1.8-7.7) K/mm3 Lymphocytes # (Manual) (1.2-5.4) K/mm3 Monocytes # (Manual) (0.0-0.8) K/mm3 PT 15.5 H (12.2-14.9) Sec. INR 1.26 H (0.87-1.13) APTT 50.0 H (24.2-36.6) Sec. Sodium 132 L (137-145) mmol/L Potassium 3.0 L (3.6-5.0) mmol/L Chloride 93.8 L (98-107) mmol/L Carbon Dioxide 20 L (22-30) mmol/L BUN 5 L (7-17) mg/dL Creatinine 1.5 H (0.7-1.2) mg/dL Glucose 121 H (65-100) mg/dL POC Glucose (70-105) ALT < 5 L (7-56) units/L CK-MB (CK-2) (0.0-4.0) ng/mL CK-MB (CK-2) Rel Index 5.2 H (0-4) Troponin T 0.288 H* (0.00-0.029) ng/mL NT-Pro-B Natriuret Pep 52161 H (0-900) pg/mL Albumin 2.9 L (3.9-5) g/dL Triglycerides 218 H (2-149) mg/dL HDL Cholesterol 37 L (40-59) mg/dL 01/13/19 01/13/19 01/14/19 Range/Units 18:30 23:03 07:21 WBC 32.2 H 30.7 H (4.5-11.0) K/mm3 MCH 26 L 26 L (28-32) pg RDW 24.6 H 24.9 H (13.2-15.2) % Seg Neuts % (Manual) 94.5 H 99.0 H (40.0-70.0) % Lymphocytes % (Manual) 1.0 L 0 L (13.4-35.0) % Seg Neutrophils # Man 30.4 H 30.4 H (1.8-7.7) K/mm3 Lymphocytes # (Manual) 0.3 L 0.0 L (1.2-5.4) K/mm3 Monocytes # (Manual) 1.3 H (0.0-0.8) K/mm3 PT (12.2-14.9) Sec. INR (0.87-1.13) APTT (24.2-36.6) Sec. Sodium (137-145) mmol/L Potassium (3.6-5.0) mmol/L Chloride (98-107) mmol/L Carbon Dioxide (22-30) mmol/L BUN (7-17) mg/dL Creatinine (0.7-1.2) mg/dL Glucose (65-100) mg/dL POC Glucose (70-105) ALT (7-56) units/L CK-MB (CK-2) (0.0-4.0) ng/mL CK-MB (CK-2) Rel Index 6.2 H (0-4) Troponin T 0.259 H* (0.00-0.029) ng/mL NT-Pro-B Natriuret Pep (0-900) pg/mL Albumin (3.9-5) g/dL Triglycerides (2-149) mg/dL HDL Cholesterol (40-59) mg/dL 01/14/19 01/14/19 01/14/19 Range/Units 07:21 07:21 07:46 WBC (4.5-11.0) K/mm3 MCH (28-32) pg RDW (13.2-15.2) % Seg Neuts % (Manual) (40.0-70.0) % Lymphocytes % (Manual) (13.4-35.0) % Seg Neutrophils # Man (1.8-7.7) K/mm3 Lymphocytes # (Manual) (1.2-5.4) K/mm3 Monocytes # (Manual) (0.0-0.8) K/mm3 PT (12.2-14.9) Sec. INR (0.87-1.13) APTT (24.2-36.6) Sec. Sodium (137-145) mmol/L Potassium 3.5 L (3.6-5.0) mmol/L Chloride (98-107) mmol/L Carbon Dioxide 18 L (22-30) mmol/L BUN (7-17) mg/dL Creatinine 2.7 H D (0.7-1.2) mg/dL Glucose 117 H (65-100) mg/dL POC Glucose 121 H (70-105) ALT (7-56) units/L CK-MB (CK-2) 4.4 H (0.0-4.0) ng/mL CK-MB (CK-2) Rel Index 6.0 H (0-4) Troponin T 0.335 H* D (0.00-0.029) ng/mL NT-Pro-B Natriuret Pep (0-900) pg/mL Albumin (3.9-5) g/dL Triglycerides (2-149) mg/dL HDL Cholesterol (40-59) mg/dL - Imaging and Cardiology Chest x-ray: report reviewed (no consolidation) CT Scan - head: report reviewed (: No acute hemorrhage, mass effect, midline shift, hydrocephalus, or acute, large territorial infarct. Chronic lacunae are seen in the right corpus stratum. Periventricular low density areas are seen probably due to microvascular faint angiopathy. ) Assessment and Plan Cultures: 01/13/19 Blood: In progresss A/P: 68 year old woman with a past medical history of Hypertension, diabetes, ESRD, CAD PVD, Right lower extremity gangrene.Admitted with: 1. Sepsis on Admission: evidenced by leukocytosis and tachycardia. Etiology right great toe dry gangrene vs non healing foot ulcers vs ischemia. No fevers. Blood cultures in progress. Chest xary no consolidation. No other source of infection on exam. Likely Leukemoid reaction form tissue ischemia, gangrene and cellulitis. Currently being treated with Zosyn and vancomycin. 2. Right Toe Dry gangrene: Debridement vs limited foot amputation. Vascular following. 3. Non healing right foot ulcers: 2 ulcers on the dorsum of the right foot. Superficial no drainage. 4. PVD with Right leg ischemia: s/p right leg endovasular revasuclarzation 11/2018. 5. Sacral Wound: superficial. Continue wound care 6. Type 2 diabetes: recommend tight glycemic control 7. ESRD on HD: antibiotics renally adjusted. Neprology following. Recommendations: -Continue Vancomycin and Zosyn for now, likely will need amputation -Wound care consult -follow-up blood cultures -follow-up arterial duplex [facility] M: [phone] O:[phone]
--- NOTE | 2019-01-14 13:54 | Consultation ---
History of Present Illness - Reason for Consult Consult date: 01/14/19 end stage renal disease Requesting physician: MARILYN HASSAN - History of Present Illness 68 year old woman with Hypertension, diabetes, ESRD, CAD, PVD,right lower extremity with gangrene of the ankle status post recent revascularization,comes to the ER for evaluation. Patient is unable to give a history, apparently she was sent from dialysis because she was tachycardic with heart rate in the 150s. In the emergency room she was found to have gangrene of the right foot, started on vancomycin. Review of systems difficult to obtain PAST MEDICAL HISTORY: Hypertension, diabetes, ESRD, PVD,right lower extremity with gangrene of the ankle status post recent revascularization PAST SURGICAL HISTORY: FAMILY HISTORY:hypertension, diabetes SOCIAL HISTORY: Denies tobacco, drugs, alcohol Medications and Allergies Allergies Allergy/AdvReac Type Severity Reaction Status Date / Time erythromycin base Allergy Rash Verified 10/26/18 18:04 [Erythromycin Base] Home Medications Medication Instructions Recorded Confirmed Last Taken Type Ferric Citrate (Nf) [Auryxia] 630 mg PO TIDWM 09/05/18 12/28/18 11/18/18 History Pantoprazole [Protonix TAB] 40 mg PO BID #60 tablet 10/03/18 12/28/18 10/16/18 20:00 Rx ISOSORBIDE MONOnitrate [Imdur ER] 30 mg PO QDAY #30 tablet 10/04/18 12/28/18 Unknown Rx Lisinopril [Zestril TAB] 5 mg PO DAILY #30 tablet 10/04/18 12/28/18 Unknown Rx cloNIDine [Catapres] 0.1 mg PO TID PRN 10/17/18 12/28/18 Unknown History Mupirocin [Bactroban 2% OINT] 1 applic TP TID #1 tube 10/29/18 12/28/18 Unknown Rx Clopidogrel [Plavix] 75 mg PO QDAY #30 tablet 11/28/18 12/28/18 Unknown Rx Clopidogrel [Plavix] 75 mg PO QDAY tablet 11/29/18 12/28/18 Unknown Rx oxyCODONE /ACETAMINOPHEN [Percocet 1 tab PO Q6H PRN #10 tablet 11/29/18 12/28/18 Unknown Rx 5/325 mg] Active Meds: Active Medications Acetaminophen (Tylenol) 650 mg PO Q4H PRN PRN Reason: Pain MILD(1-3)/Fever >100.5/PEREZ Last Admin: 01/14/19 06:15 Dose: 650 mg Documented by: Clonidine HCl (Catapres) 0.1 mg PO TID PRN PRN Reason: Blood Pressure Clopidogrel Bisulfate (Plavix) 75 mg PO QDAY [facility] Last Admin: 01/14/19 10:16 Dose: 75 mg Documented by: Dextrose (D50w (25gm) Syringe) 50 ml IV PRN PRN PRN Reason: Hypoglycemia Enoxaparin Sodium (Lovenox) 30 mg SUB-Q QDAY [facility] Last Admin: 01/14/19 10:17 Dose: 30 mg Documented by: Piperacillin Sod/Tazobactam Sod (Zosyn/Ns 2.25 Gm/50ml) 2.25 gm in 50 mls @ 100 mls/hr IV Q8HR [facility]; Protocol Last Admin: 01/14/19 06:14 Dose: 100 mls/hr Documented by: Insulin Human Lispro (Humalog) 0 unit SUB-Q ACHS [facility]; Protocol Last Admin: 01/14/19 12:23 Dose: Not Given Documented by: Isosorbide Mononitrate (Imdur) 30 mg PO DAILY [facility] Last Admin: 01/14/19 10:16 Dose: 30 mg Documented by: Lisinopril (Zestril) 5 mg PO DAILY [facility] Last Admin: 01/14/19 10:17 Dose: 5 mg Documented by: Miscellaneous Medication (Ferric Citrate) 630 mg PO TIDWM [facility] Mupirocin (Bactroban 2%) 1 applic TP TID [facility] Ondansetron HCl (Zofran) 4 mg IV Q8H PRN PRN Reason: Nausea And Vomiting Oxycodone/Acetaminophen (Percocet 5/325) 1 tab PO Q6H PRN PRN Reason: Pain, Moderate (4-6) Pantoprazole Sodium (Protonix) 40 mg PO BID [facility] Last Admin: 01/14/19 10:17 Dose: 40 mg Documented by: Sodium Chloride (Sodium Chloride Flush Syringe 10 Ml) 10 ml IV BID [facility] Last Admin: 01/14/19 10:17 Dose: 10 ml Documented by: Sodium Chloride (Sodium Chloride Flush Syringe 10 Ml) 10 ml IV PRN PRN PRN Reason: LINE FLUSH Review of Systems Constitutional: weight loss, fever, chills, night sweats, anorexia, weakness, malaise, lethargy, poor appetite Exam - Vital Signs Vital signs: Vital Signs Resp BP Pulse Ox 18 155/78 98 01/13/19 16:42 01/13/19 16:42 01/13/19 16:42 - Physical Exam Narrative exam: General Apperance: The patient sitting in bed no acute distress HEENT: Normocephalic, atraumatic. Pupils equally round and reactive to light, extraocular movement intact, and no sclericterus or JVD or thyromegaly or nodule. Neck supple, no carotid bruit, mucous membranes moist, no exudate or erythema Heart: S1-S2, regular is rhythm Lungs: Clear to auscultation bilaterally, breathing comfortable Abdomen: Positive bowel sounds, soft, nontender, nondistended, no organomegaly Extremities: No edema cyanosis clubbing Skin: Lower extremity and sacral wound, no rash, nodule, warm and dry Neuro:CN 2 -12 intact, motor/sensory intact, speech is fluent Results - Lab Results 01/14/19 07:21 01/14/19 07:21 Most recent lab results Calcium 9.9 mg/dL (8.4-10.2) 01/14/19 07:21 Magnesium 1.90 mg/dL (1.7-2.3) 01/13/19 17:54 Assessment and Plan Impression: * End stage renal disease * Peripheral artery disease * sepsis * Right leg ulceration * Hypertension * Type II DM * Secondary hyperparathyroidism * Anemia secondary to ESRD Plan: * Continue outpatient TTS schedule * UF as tolerated * iv abx per ID * Anticoagulation as per primary team/vascular surgery * Vascular surgery following, ? amputaion, wound care, follow up perfusion study * Epogen TIW prn * Continue antiHTN medications * Renal diet
--- NOTE | 2019-01-14 14:19 | Vascular Lab Report ---
DUPLEX DOPPLER LOWER EXTREMITY ARTERIAL, RIGHT INDICATION: Dry gangrene of right big toe for several months. History of peripheral vascular disease, hypertensio n and ESRD. TECHNIQUE: Arterial duplex examination of the right lower extremity was performed using B-mode, color flow and s pectral Doppler assessment. FINDINGS: RIGHT: Common Femoral Artery: PSV 103 cm/sec. Monophasic waveform. Proximal SFA: PSV 93 cm/sec. Monophasic waveform. Mid SFA: PSV 154 cm/sec. Monophasic waveform. Distal SFA: PSV 79 cm/sec. Monophasic waveform. Popliteal artery: PSV 81 cm/sec. Monophasic waveform. Posterior tibial artery: PSV 14 cm/sec. Monophasic waveform. Dorsalis Pedis Artery: Not evaluated due to bandages along right foot. Diffuse atherosclerosis is again seen with prior stenting of the superficial femoral artery. IMPRESSION: Stable moderate generalized atherosclerosis with a similar stenosis of the mid right SFA. Signer Name: Amol Romano MD Signed: 01/14/2019 2:15 PM Workstation Name: [email or web address] / [id number]
[2019-01-14] MEDS: BACTROBAN 2% TP SCH ×2 (15:04→23:22)
[2019-01-14] MEDS ORDERED: VANCOMYCIN/NS 1 GM/250 ML 1 GM/250 ML BAG IV SCH (18:00)
[2019-01-14] MEDS: D50W (25GM) Syringe IV PRN (20:59)
[2019-01-14] MEDS: PERCOCET 5/325 PO PRN (23:23)
[2019-01-15] MEDS: ZOSYN/NS 2.25 GM/50ML 2.25 GM/50 ML BAG IV SCH ×3 (05:11→21:41)
[2019-01-15] MEDS: PERCOCET 5/325 PO PRN (05:16)
[2019-01-15 07:56] LABS: Mean Corpuscular HGB Conc 30 % (30-34); Mean Corpuscular Volume 86 fl (79-97); Platelet Count 285 K/mm3 (140-440); Red Blood Count 4.19 M/mm3 (3.65-5.03)
[2019-01-15 07:59] LABS: Calcium 10.7 mg/dL (8.4-10.2)
[2019-01-15] MEDS: BACTROBAN 2% TP SCH ×3 (08:00→21:41)
[2019-01-15 08:09] LABS: Hemoglobin 10.8 gm/dl (10.1-14.3)
[2019-01-15 08:10] LABS: Red Cell Distribution Width 24.9 % (13.2-15.2)
[2019-01-15] MEDS: HumaLOG SUB-Q SCH ×4 (08:21→21:41)
[2019-01-15] MEDS: LOVENOX SUB-Q SCH (10:22)
[2019-01-15] MEDS: PLAVIX PO SCH (10:22)
[2019-01-15] MEDS: PROTONIX PO SCH ×2 (10:22→21:41)
[2019-01-15] MEDS: IMDUR PO SCH (10:23)
[2019-01-15] MEDS: ZESTRIL PO SCH (10:24)
[2019-01-15] MEDS: SODIUM CHLORIDE FLUSH SYRINGE 10 ML IV SCH ×2 (10:24→21:42)
--- NOTE | 2019-01-15 10:49 | Progress Note ---
Assessment and Plan Cultures: 01/13/19 Blood: In progresss A/P: 68 year old woman with a past medical history of Hypertension, diabetes, ESRD, CAD PVD, Right lower extremity gangrene.Admitted with: 1. Sepsis on Admission: Improved. Leukocytosis trending down. Etiology right great toe dry gangrene vs non healing foot ulcers vs ischemia. No fevers. Blood cultures in progress. Chest xary no consolidation. No other source of infection on exam. Likely Leukemoid reaction form tissue ischemia, gangrene and cellulitis. Currently being treated with Zosyn and vancomycin. 2. Right Toe Dry gangrene: Debridement vs limited foot amputation. Vascular following. 3. Non healing right foot ulcers: 2 ulcers on the dorsum of the right foot. Superficial no drainage. 4. PVD with Right leg ischemia: s/p right leg endovasular revasuclarzation 11/2018. Arterial duplex shows stable moderate generalized atherosclerosis with a similar stenosis of the mid right SFA. 5. Sacral Wound: superficial. Continue wound care 6. Type 2 diabetes: recommend tight glycemic control 7. ESRD on HD: antibiotics renally adjusted. Neprology following. Recommendations: -Continue Vancomycin and Zosyn for now, likely will need amputation -Wound care consult -follow-up blood cultures -surgery consulted - awaiting surgical recommendations [facility] M: [phone] O:[phone] Subjective Date of service: 01/15/19 Interval history: Patient seen and examined. lying in bed crying. Reports continued right foot pain. No fevers. Objective - Exam Narrative Exam: Constitutional: Alert. tearful. . Acute distress, right foot pain. Head, Ears, Nose: Normocephalic, atraumatic. External ears, nose normal Eyes: Conjunctivae/corneas clear. No icterus. No ptosis. Neck: Supple, no meningeal signs Oral: dentition poor. No thrush. oral mucosa moist Cardiovascular: S1, S2 normal. Respiratory: Good air entry, clear to auscultation bilaterally GI: Soft, non-tender; bowel sounds normal. No peritoneal signs Musculoskeletal: No pedal edema, no cyanosis. Skin: bilateral lower extremity with right toe dry gangrene. Bilateral lower extremity with dystrophic toenails. 2 superficial ulcerations on right dorsum. Right lower extremity tenderness. Hem/Lymphatic: No palpable cervical or supraclavicular nodes. No lymphangitis Psych: Mood tearful. . Affect flat Neurological: Awake, alert, oriented. - Constitutional Vitals: Vital Signs Temp Pulse Resp BP Pulse Ox 98.0 F 99 H 18 128/70 100 01/15/19 07:29 01/15/19 10:24 01/15/19 07:29 01/15/19 10:24 01/15/19 03:25 Temperature -Last 24 Hours Temperature 98.0 F Temperature 98.2 F Temperature 98.4 F Temperature 98.6 F Temperature 98.6 F - Labs CBC & Chem 7: 01/15/19 07:33 01/15/19 07:33 Labs: Abnormal lab results 01/14/19 01/14/19 01/14/19 Range/Units 07:21 12:13 15:29 WBC (4.5-11.0) K/mm3 MCH (28-32) pg RDW (13.2-15.2) % Seg Neuts % (Manual) 99.0 H (40.0-70.0) % Lymphocytes % (Manual) 0 L (13.4-35.0) % Seg Neutrophils # Man 30.4 H (1.8-7.7) K/mm3 Lymphocytes # (Manual) 0.0 L (1.2-5.4) K/mm3 Potassium (3.6-5.0) mmol/L Creatinine (0.7-1.2) mg/dL Glucose (65-100) mg/dL POC Glucose 129 H 153 H (70-105) Calcium (8.4-10.2) mg/dL 01/14/19 01/14/19 01/15/19 Range/Units 21:01 21:57 07:21 WBC (4.5-11.0) K/mm3 MCH (28-32) pg RDW (13.2-15.2) % Seg Neuts % (Manual) (40.0-70.0) % Lymphocytes % (Manual) (13.4-35.0) % Seg Neutrophils # Man (1.8-7.7) K/mm3 Lymphocytes # (Manual) (1.2-5.4) K/mm3 Potassium (3.6-5.0) mmol/L Creatinine (0.7-1.2) mg/dL Glucose (65-100) mg/dL POC Glucose 50 L 164 H 121 H (70-105) Calcium (8.4-10.2) mg/dL 01/15/19 01/15/19 Range/Units 07:33 07:33 WBC 22.0 H (4.5-11.0) K/mm3 MCH 26 L (28-32) pg RDW 24.9 H (13.2-15.2) % Seg Neuts % (Manual) (40.0-70.0) % Lymphocytes % (Manual) (13.4-35.0) % Seg Neutrophils # Man (1.8-7.7) K/mm3 Lymphocytes # (Manual) (1.2-5.4) K/mm3 Potassium 3.5 L (3.6-5.0) mmol/L Creatinine 4.1 H D (0.7-1.2) mg/dL Glucose 135 H (65-100) mg/dL POC Glucose (70-105) Calcium 10.7 H (8.4-10.2) mg/dL
--- NOTE | 2019-01-15 11:13 | Progress Note ---
Assessment and Plan - Patient Problems (1) ESRD (end stage renal disease) on dialysis Current Visit: Yes Status: Chronic Plan to address problem: End-stage renal disease on dialysis Dialysis access less than aVF Continue dialysis Tuesday schedule (2) Diabetes mellitus Current Visit: No Status: Chronic Qualifiers: Diabetes mellitus type: type 2 Plan to address problem: Diabetes mellitus Continue medications monitor fingersticks (3) Hypertension Current Visit: No Status: Chronic Qualifiers: Hypertension type: essential hypertension Qualified Code(s): I10 - Essential (primary) hypertension Plan to address problem: Hypertension controlled Initial medications (4) Peripheral vascular disease Current Visit: Yes Status: Acute Plan to address problem: Peripheral vascular disease with dry gangrene vascular surgery following Subjective Interval history: 68-year-old lady with hypertension, end-stage renal disease, CAD, peripheral vascular disease, gangrene of the ankle Patient seen today Denies any orthopnea or PND. gangrene noted in right foot Left arm with swelling and AVF. Objective - Vital Signs Vital signs: Vital Signs - 12hr 01/15/19 01/15/19 01/15/19 00:00 03:25 07:29 Temperature 98.2 F 98.0 F Pulse Rate 107 H 89 Respiratory 18 18 Rate Blood Pressure 112/49 138/72 O2 Sat by Pulse 100 Oximetry 01/15/19 01/15/19 10:23 10:24 Temperature Pulse Rate 99 H 99 H Respiratory Rate Blood Pressure 128/70 128/70 O2 Sat by Pulse Oximetry - General Appearance General appearance: well-developed, well-nourished EENT: ATNC, PERRL Neck: no JVD Respiratory: Present: Clear to Ascultation Cardiology: regular, S1S2 Gastrointestinal: normal, normoactive bowel sounds Integumentary: no rash Neurologic: CN 3-12 intact Psychiatric: mood/affect appropriate - Lab 01/15/19 07:33 01/15/19 07:33 Most recent lab results Calcium 10.7 mg/dL (8.4-10.2) H 01/15/19 07:33 Magnesium 1.90 mg/dL (1.7-2.3) 01/13/19 17:54 - Imaging Chest x-ray: image reviewed (reviewed CXR ) Medications & Allergies - Medications Allergies/Adverse Reactions: Allergies erythromycin base [Erythromycin Base] Allergy (Verified 10/26/18 18:04) Rash PATIENT ASK ME TO REMOVEDMED ON ALLERGY LIST. Home Medications: Home Medications Medication Instructions Recorded Confirmed Last Taken Type Ferric Citrate (Nf) [Auryxia] 630 mg PO TIDWM 09/05/18 12/28/18 11/18/18 History Pantoprazole [Protonix TAB] 40 mg PO BID #60 tablet 10/03/18 12/28/18 10/16/18 20:00 Rx ISOSORBIDE MONOnitrate [Imdur ER] 30 mg PO QDAY #30 tablet 10/04/18 12/28/18 Unknown Rx Lisinopril [Zestril TAB] 5 mg PO DAILY #30 tablet 10/04/18 12/28/18 Unknown Rx cloNIDine [Catapres] 0.1 mg PO TID PRN 10/17/18 12/28/18 Unknown History Mupirocin [Bactroban 2% OINT] 1 applic TP TID #1 tube 10/29/18 12/28/18 Unknown Rx Clopidogrel [Plavix] 75 mg PO QDAY #30 tablet 11/28/18 12/28/18 Unknown Rx Clopidogrel [Plavix] 75 mg PO QDAY tablet 11/29/18 12/28/18 Unknown Rx oxyCODONE /ACETAMINOPHEN [Percocet 1 tab PO Q6H PRN #10 tablet 11/29/18 12/28/18 Unknown Rx 5/325 mg] Active Medications: Generic Name Dose Route Start Last Admin Trade Name Freq PRN Reason Stop Dose Admin Acetaminophen 650 mg 01/13/19 22:37 01/14/19 06:15 Tylenol PO 650 mg Q4H PRN Administration Pain MILD(1-3)/Fever >100.5/PEREZ Clonidine HCl 0.1 mg 01/14/19 09:31 Catapres PO TID PRN Blood Pressure Clopidogrel Bisulfate 75 mg 01/14/19 10:00 01/15/19 10:22 Plavix PO 75 mg QDAY [facility] Administration Dextrose 50 ml 01/13/19 22:40 01/14/19 20:59 D50w (25gm) Syringe IV 50 ml PRN PRN Administration Hypoglycemia Enoxaparin Sodium 30 mg 01/14/19 10:00 01/15/19 10:22 Lovenox SUB-Q 30 mg QDAY [facility] Administration Piperacillin Sod/Tazobactam Sod 2.25 gm in 50 mls @ 100 mls/hr 01/13/19 23:00 01/15/19 05:11 Zosyn/Ns 2.25 Gm/50ml IV 100 mls/hr Q8HR [facility] Administration Protocol Insulin Human Lispro 0 unit 01/14/19 07:30 01/15/19 08:21 Humalog SUB-Q Not Given ACHS [facility] Protocol Isosorbide Mononitrate 30 mg 01/14/19 10:00 01/15/19 10:23 Imdur PO 30 mg DAILY [facility] Administration Lisinopril 5 mg 01/14/19 10:00 01/15/19 10:24 Zestril PO 5 mg DAILY [facility] Administration Miscellaneous Medication 630 mg 01/14/19 12:00 Ferric Citrate PO TIDWM [facility] Mupirocin 1 applic 01/14/19 14:00 01/15/19 08:00 Bactroban 2% TP 1 applic TID [facility] Administration Ondansetron HCl 4 mg 01/13/19 22:37 Zofran IV Q8H PRN Nausea And Vomiting Oxycodone/Acetaminophen 1 tab 01/14/19 09:31 01/15/19 05:16 Percocet 5/325 PO 1 tab Q6H PRN Administration Pain, Moderate (4-6) Pantoprazole Sodium 40 mg 01/14/19 10:00 01/15/19 10:22 Protonix PO 40 mg BID [facility]TO Administration Sodium Chloride 10 ml 01/14/19 10:00 01/15/19 10:24 Sodium Chloride Flush Syringe 10 Ml IV 10 ml BID [facility] Administration Sodium Chloride 10 ml 01/13/19 22:37 Sodium Chloride Flush Syringe 10 Ml IV PRN PRN LINE FLUSH
--- NOTE | 2019-01-15 16:16 | Event Note ---
Date: 01/15/19 Patient was seen in the office on 01/12/19 with plan for revascularization on 01/18/19. Patient had dry gangrene at the time, not wet gangrene. Patient is now in the hospital. If patient's clinical status improves, plan will be for further revascularization on 01/18/19.
--- NOTE | 2019-01-15 18:37 | Progress Note ---
Assessment and Plan Assessment and plan: 68 year old woman with Hypertension, diabetes, ESRD, CAD, PVD,right lower extremity with gangrene of the ankle status post recent revascularization,comes to the ER for evaluation. Patient is unable to give a history, apparently she was sent from dialysis because she was tachycardic with heart rate in the 150s. In the emergency room she was found to have gangrene of the right foot, started on vancomycin. Review of systems difficult to obtain Recent atrial doppler done and did not reveal any possibility to salvage toe. Previous angiogram result Impression: 1) Aortogram and right lower extremity angiography demonstrating multifocal 80-90% stenosis within the proximal and mid SFA with complete occlusion of the mid to distal SFA and reconstitution of the p opliteal artery and distal SFA through collaterals. There is single vessel runoff to the foot throughout peroneal artery. 2) Attempted revascularization from both an antegrade and pedal approach as described without success. 3) The patient will need to be rescheduled for revascularization procedure on her right leg with anesthesia from both an antegrade and popliteal artery approach. Acute Right leg limb ischemia : Continue palvix, Vascular consulted. ?Ampuation. Woundcare consulted Dry gangrene: Per vascular Patient was seen in the office on 01/12/19 with plan for revascularization on 01/18/19. Patient had dry gangrene at the time, not wet gangrene. Patient is now in the hospital. If patient's clinical status improves, plan will be for further revascularization on 01/18/19 Type 2 AK: Conservative management Leukocytosis- No evidence of sepsis. Continue abx, consult ID Diabetic foot nonhealing ulcer: Vascular re-evaluation, ?need for amputation- surgery consulted Decubitus ulcer at least stage 4, poa: consulted Wound care, HTN: continue antihypertensives ESRD on Hemodialysis TTS: Nephrology is following, monitor bmp closely, renal diet Diabetes Mellitus: continue insulin and keep blood glucose less than 160 Anemia of chronic disease: monitored cbc closely and was stable Severe Protien calorie Malnutrition, poa: PAD- Prox Superficial Femoral Artery associated with critical limb ischemia, see above: Vascular Surgeon is managing, s/p Re-vascularization procedure of her right leg 11/27/18 with good result. d/w Dr. Jones, Started on Plavix Chronic edema of left upper extremity: The patient has had multiple workup with no find is a student reason why. This also houses her AV graft. Poor prognosis Discussed with the patient. IF no plan for surgery, Patient can be discharged in AM and return for revascularization . History Interval history: Patient seen and examined, appears chronically ill. No new compliants. Hospitalist Physical - Physical exam Narrative exam: General Apperance: The patient sitting in bed no acute distress HEENT: Normocephalic, atraumatic. Pupils equally round and reactive to light, extraocular movement intact, and no sclericterus or JVD or thyromegaly or nodule. Neck supple, no carotid bruit, mucous membranes moist, no exudate or erythema Heart: S1-S2, regular is rhythm Lungs: Clear to auscultation bilaterally, breathing comfortable Abdomen: Positive bowel sounds, soft, nontender, nondistended, no organomegaly Extremities: No edema cyanosis clubbing Skin: Lower extremity and sacral wound,-stage 4 Multiple necrotic skin lesions no rash, nodule, warm and dry Neuro:CN 2 -12 intact, motor/sensory intact, speech is fluent - Constitutional Vitals: Temp Pulse Resp BP Pulse Ox 98.0 F 98 H 18 128/70 100 01/15/19 07:29 01/15/19 14:48 01/15/19 11:00 01/15/19 10:24 01/15/19 03:25 Results - Labs CBC & Chem 7: 01/15/19 07:33 01/15/19 07:33 Labs: Laboratory Last Values WBC 22.0 K/mm3 (4.5-11.0) H 01/15/19 07:33 RBC 4.19 M/mm3 (3.65-5.03) 01/15/19 07:33 Hgb 10.8 gm/dl (10.1-14.3) 01/15/19 07:33 Hct 36.0 % (30.3-42.9) 01/15/19 07:33 MCV 86 fl (79-97) 01/15/19 07:33 MCH 26 pg (28-32) L 01/15/19 07:33 MCHC 30 % (30-34) 01/15/19 07:33 RDW 24.9 % (13.2-15.2) H 01/15/19 07:33 Plt Count 285 K/mm3 (140-440) 01/15/19 07:33 Add Manual Diff Complete 08/25/19 07:21 Total Counted 100 01/14/19 07:21 Seg Neutrophils % Senior Database Administrator 01/13/19 18:30 Seg Neuts % (Manual) 99.0 % (40.0-70.0) H 01/14/19 07:21 0 % 01/14/19 07:21 0 % (13.4-35.0) L 01/14/19 07:21 Reactive Lymphs % (Man) 0 % 01/14/19 07:21 0 % (0.0-7.3) 01/14/19 07:21 1.0 % (0.0-4.3) 01/14/19 07:21 0 % (0.0-1.8) 01/14/19 07:21 0 % 01/14/19 07:21 0 % 01/14/19 07:21 0 % 01/14/19 07:21 0 % 01/14/19 07:21 Nucleated RBC % Not Reportable 01/14/19 07:21 Seg Neutrophils # Man 30.4 K/mm3 (1.8-7.7) H 01/14/19 07:21 Band Neutrophils # 0.0 K/mm3 01/14/19 07:21 0.0 K/mm3 (1.2-5.4) L 01/14/19 07:21 Abs React Lymphs (Man) 0.0 K/mm3 01/14/19 07:21 0.0 K/mm3 (0.0-0.8) 01/14/19 07:21 0.3 K/mm3 (0.0-0.4) 01/14/19 07:21 0.0 K/mm3 (0.0-0.1) 01/14/19 07:21 0.0 K/mm3 01/14/19 07:21 0.0 K/mm3 01/14/19 07:21 0.0 K/mm3 01/14/19 07:21 Blast Cells # 0.0 K/mm3 01/14/19 07:21 WBC Morphology Not Reportable 01/14/19 07:21 Hypersegmented Neuts Not Reportable 01/14/19 07:21 Hyposegmented Neuts Not Reportable 01/14/19 07:21 Hypogranular Neuts Not Reportable 01/14/19 07:21 Not Reportable 01/14/19 07:21 Not Reportable 01/14/19 07:21 Not Reportable 01/14/19 07:21 Not Reportable 01/14/19 07:21 Not Reportable 01/14/19 07:21 Not Reportable 01/14/19 07:21 Consistent w auto 01/14/19 07:21 Not Reportable 01/14/19 07:21 Plt Clumps, EDTA Not Reportable 01/14/19 07:21 Not Reportable 01/14/19 07:21 Not Reportable 01/14/19 07:21 Not Reportable 01/14/19 07:21 Plt Morphology Comment Not Reportable 01/14/19 07:21 RBC Morphology Not Reportable 01/14/19 07:21 Dimorphic RBCs Not Reportable 01/14/19 07:21 1+ 01/14/19 07:21 Not Reportable 01/14/19 07:21 Not Reportable 01/14/19 07:21 Not Reportable 01/14/19 07:21 Not Reportable 01/14/19 07:21 Not Reportable 01/14/19 07:21 Not Reportable 01/14/19 07:21 Not Reportable 01/14/19 07:21 Not Reportable 01/14/19 07:21 Not Reportable 01/14/19 07:21 Not Reportable 01/14/19 07:21 Not Reportable 01/14/19 07:21 Not Reportable 01/14/19 07:21 Not Reportable 01/14/19 07:21 Not Reportable 01/14/19 07:21 Not Reportable 01/14/19 07:21 Not Reportable 01/14/19 07:21 Not Reportable 01/14/19 07:21 1+ 01/14/19 07:21 Acanthocytes (Spur) Not Reportable 01/14/19 07:21 Rouleaux Not Reportable 01/14/19 07:21 Not Reportable 01/14/19 07:21 Not Reportable 01/14/19 07:21 Not Reportable 01/14/19 07:21 Not Reportable 01/14/19 07:21 Hem Pathologist Commnt No 01/14/19 07:21 PT 15.5 Sec. (12.2-14.9) H 01/13/19 17:42 INR 1.26 (0.87-1.13) H 01/13/19 17:42 APTT 50.0 Sec. (24.2-36.6) H 01/13/19 17:42 Sodium 137 mmol/L (137-145) 01/15/19 07:33 Potassium 3.5 mmol/L (3.6-5.0) L 01/15/19 07:33 Chloride 98.7 mmol/L (98-107) 01/15/19 07:33 Carbon Dioxide 22 mmol/L (22-30) 01/15/19 07:33 20 mmol/L 01/15/19 07:33 BUN 17 mg/dL (7-17) 01/15/19 07:33 4.1 mg/dL (0.7-1.2) H D 01/15/19 07:33 Estimated GFR 13 ml/min 01/15/19 07:33 4 % 01/15/19 07:33 Glucose 135 mg/dL (65-100) H 01/15/19 07:33 POC Glucose 119 (70-105) H 01/15/19 15:30 Lactic Acid 0.90 mmol/L (0.7-2.0) 01/13/19 17:54 Calcium 10.7 mg/dL (8.4-10.2) H 01/15/19 07:33 Magnesium 1.90 mg/dL (1.7-2.3) 01/13/19 17:54 0.50 mg/dL (0.1-1.2) 01/13/19 17:42 < 0.2 mg/dL (0-0.2) 01/13/19 17:42 0.3 mg/dL 01/13/19 17:42 AST 10 units/L (5-40) 01/13/19 17:42 ALT < 5 units/L (7-56) L 01/13/19 17:42 123 units/L (35-129) 01/13/19 17:42 73 units/L (30-135) 01/14/19 07:21 CK-MB (CK-2) 4.4 ng/mL (0.0-4.0) H 01/14/19 07:21 CK-MB (CK-2) Rel Index 6.0 (0-4) H 01/14/19 07:21 0.335 ng/mL (0.00-0.029) H* D 01/14/19 07:21 NT-Pro-B Natriuret Pep 06498 pg/mL (0-900) H 01/13/19 17:42 6.8 g/dL (6.3-8.2) 01/13/19 17:42 2.9 g/dL (3.9-5) L 01/13/19 17:42 0.7 % 01/13/19 17:42 Triglycerides 218 mg/dL (2-149) H 01/13/19 17:54 Cholesterol 130 mg/dL (50-199) 01/13/19 17:54 50 mg/dL (50-130) 01/13/19 17:54 37 mg/dL (40-59) L 01/13/19 17:54 3.51 % 01/13/19 17:54 TSH 3.000 mlU/mL (0.270-4.200) 01/13/19 17:42 Active Medications - Current Medications Current Medications: Generic Name Dose Route Start Last Admin Trade Name Freq PRN Reason Stop Dose Admin Acetaminophen 650 mg 01/13/19 22:37 01/14/19 06:15 Tylenol PO 650 mg Q4H PRN Administration Pain MILD(1-3)/Fever >100.5/PEREZ Clonidine HCl 0.1 mg 01/14/19 09:31 Catapres PO TID PRN Blood Pressure Clopidogrel Bisulfate 75 mg 01/14/19 10:00 01/15/19 10:22 Plavix PO 75 mg QDAY [facility] Administration Dextrose 50 ml 01/13/19 22:40 01/14/19 20:59 D50w (25gm) Syringe IV 50 ml PRN PRN Administration Hypoglycemia Enoxaparin Sodium 30 mg 01/14/19 10:00 01/15/19 10:22 Lovenox SUB-Q 30 mg QDAY [facility] Administration Piperacillin Sod/Tazobactam Sod 2.25 gm in 50 mls @ 100 mls/hr 01/13/19 23:00 01/15/19 14:42 Zosyn/Ns 2.25 Gm/50ml IV 100 mls/hr Q8HR [facility] Administration Protocol Insulin Human Lispro 0 unit 01/14/19 07:30 01/15/19 12:13 Humalog SUB-Q 2 unit ACHS [facility] Administration Protocol Isosorbide Mononitrate 30 mg 01/14/19 10:00 01/15/19 10:23 Imdur PO 30 mg DAILY [facility] Administration Lisinopril 5 mg 01/14/19 10:00 01/15/19 10:24 Zestril PO 5 mg DAILY [facility] Administration Miscellaneous Medication 630 mg 01/14/19 12:00 Ferric Citrate PO TIDWM [facility] Mupirocin 1 applic 01/14/19 14:00 01/15/19 14:43 Bactroban 2% TP 1 applic TID [facility] Administration Ondansetron HCl 4 mg 01/13/19 22:37 Zofran IV Q8H PRN Nausea And Vomiting Oxycodone/Acetaminophen 1 tab 01/14/19 09:31 01/15/19 05:16 Percocet 5/325 PO 1 tab Q6H PRN Administration Pain, Moderate (4-6) Pantoprazole Sodium 40 mg 01/14/19 10:00 01/15/19 10:22 Protonix PO 40 mg BID [facility] Administration Sodium Chloride 10 ml 01/14/19 10:00 01/15/19 10:24 Sodium Chloride Flush Syringe 10 Ml IV 10 ml BID [facility] Administration Sodium Chloride 10 ml 01/13/19 22:37 Sodium Chloride Flush Syringe 10 Ml IV PRN PRN LINE FLUSH Nutrition/Malnutrition Assess - Dietary Evaluation Nutrition/Malnutrition Findings: Nutrition Notes Start: 01/15/19 15:22 Freq: Status: Active Protocol: Document 01/15/19 15:22 RM (Rec: 01/15/19 15:31 [email or web address]) Nutrition Notes Need for Assessment generated from: blow down helper Initial or Follow up Assessment Current Diagnosis Coronary Artery Disease, Diabetes,Hypertension Other Pertinent Diagnosis ESRD on HD (T/T/S), R foot wound w/gangrene, Sacral PU, PVD Current Diet Cardiac/Consistent CHO Labs/Tests Reviewed Pertinent Medications Reviewed Height 5 ft 2 in Weight 42.4 kg [place] Body Weight (kg) 50.00 BMI 17.1 Subjective/Other Information Screened for skin risk and malnutrition. Isiah 15 points. Pt lethargic and in pain at time of visit. 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 Stated that she has not eaten anything since admission. Unsure of dry wt. Noted L arm edema. No temporal or orbital wasting . 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 No Is Patient Ambulatory and/or Out of Bed No REE-([facility]-confined to bed) 1082.916 Kcal/Kg value to use for calculation 33 Approximate Energy Requirements Using 1399 kcal/Kg Additional Notes Protein Needs: 51-64g (1.2-1. 5g/kg) Fluid Needs: 1 ml/kcal Nutrition Intervention Change Diet Order: Continue current Add Supplement/Snack (indicate name/kcal Nepro 1 daily /protein ) Provides kCal: 425 Provides Protein (gm) 19 Goal #1 Meet at least 75% of calorie and protein needs via PO and ONS intakes Goal #2 Wt gain/maintenance Anticipated Discharge Needs: Cardiac/Consistent CHO diet Follow-Up By: 01/17/19 Additional Comments Follow for PO and ONS intakes
[2019-01-16] MEDS: ZOSYN/NS 2.25 GM/50ML 2.25 GM/50 ML BAG IV SCH ×3 (06:16→22:00)
[2019-01-16] MEDS: BACTROBAN 2% TP SCH ×3 (08:00→22:03)
[2019-01-16] MEDS: HumaLOG SUB-Q SCH ×4 (08:00→21:07)
[2019-01-16] MEDS: LOVENOX SUB-Q SCH (09:00)
[2019-01-16] MEDS: PROTONIX PO SCH ×2 (09:00→21:58)
[2019-01-16] MEDS: PLAVIX PO SCH (09:00)
[2019-01-16] MEDS: SODIUM CHLORIDE FLUSH SYRINGE 10 ML IV SCH ×2 (09:00→21:58)
[2019-01-16] MEDS: ZESTRIL PO SCH (10:00)
[2019-01-16] MEDS: IMDUR PO SCH (10:00)
--- NOTE | 2019-01-16 10:52 | Progress Note ---
Assessment and Plan Cultures: 01/13/19 Blood: No growth A/P: 68 year old woman with a past medical history of Hypertension, diabetes, ESRD, CAD PVD, Right lower extremity gangrene.Admitted with: 1. Sepsis on Admission: Improved. Leukocytosis trending down. Etiology right great toe dry gangrene vs non healing foot ulcers vs ischemia. No fevers. Blood cultures in progress. Chest xary no consolidation. No other source of infection on exam. Likely Leukemoid reaction form tissue ischemia, gangrene and cellulitis. Currently being treated with Zosyn and vancomycin. 2. Right Toe Dry gangrene:. Agree with surgical recommendation for right great toe amputation. 3. Non healing right foot ulcers: 2 ulcers on the dorsum of the right foot. Superficial no drainage. 4. PVD with Right leg ischemia: s/p right leg endovasular revasuclarzation 11/2018. Arterial duplex shows stable moderate generalized atherosclerosis with a similar stenosis of the mid right SFA. 5. Sacral Wound: superficial. Continue wound care 6. Type 2 diabetes: recommend tight glycemic control 7. ESRD on HD: antibiotics renally adjusted. Neprology following. Recommendations: -Continue Vancomycin and Zosyn -Continue wound care -Agree with right great toe amputation please send for cultures and pathology.. [facility] M: [id number] O:[phone] Subjective Date of service: 01/16/19 Interval history: Patient seen and examined. lying in bed crying. Reports continued right foot pain. No fevers. Objective - Exam Narrative Exam: Constitutional: Alert. tearful. . Acute distress, right foot pain. Head, Ears, Nose: Normocephalic, atraumatic. External ears, nose normal Eyes: Conjunctivae/corneas clear. No icterus. No ptosis. Neck: Supple, no meningeal signs Oral: dentition poor. No thrush. oral mucosa moist Cardiovascular: S1, S2 normal. Respiratory: Good air entry, clear to auscultation bilaterally GI: Soft, non-tender; bowel sounds normal. No peritoneal signs Musculoskeletal: No pedal edema, no cyanosis. Skin: bilateral lower extremity with right toe dry gangrene. Bilateral lower extremity with dystrophic toenails. 2 superficial ulcerations on right dorsum. Right lower extremity tenderness. Hem/Lymphatic: No palpable cervical or supraclavicular nodes. No lymphangitis Psych: Mood tearful. . Affect flat Neurological: Awake, alert, oriented. - Constitutional Vitals: Vital Signs Temp Pulse Resp BP Pulse Ox 98.7 F 101 H 18 149/76 99 01/16/19 07:46 01/16/19 07:46 01/16/19 07:46 01/16/19 07:46 01/16/19 09:00 Temperature -Last 24 Hours Temperature 98.7 F Temperature 98.5 F Temperature 98.1 F Temperature 98.1 F Temperature 98.1 F Temperature 97.5 F Temperature 98.1 F - Labs CBC & Chem 7: 01/15/19 07:33 01/15/19 07:33 Labs: Abnormal lab results 01/15/19 01/15/19 01/15/19 Range/Units 11:51 15:30 21:31 POC Glucose 170 H 119 H 139 H (70-105) 01/16/19 Range/Units 07:15 POC Glucose 132 H (70-105)
--- NOTE | 2019-01-16 12:22 | Consultation ---
History of Present Illness Consult date: 01/16/19 Chief complaint: Gangrene of right great toe - History of present illness History of present illness: 68 yo diabetic non-ambulatory female with dry gangrene of right great toe. Pt denies rest pain of RLE. Past History Past Medical History: hypertension, renal failure Medications and Allergies Allergies Allergy/AdvReac Type Severity Reaction Status Date / Time erythromycin base Allergy Rash Verified 10/26/18 18:04 [Erythromycin Base] Home Medications Medication Instructions Recorded Confirmed Last Taken Type Ferric Citrate (Nf) [Auryxia] 630 mg PO TIDWM 09/05/18 12/28/18 11/18/18 History Pantoprazole [Protonix TAB] 40 mg PO BID #60 tablet 10/03/18 12/28/18 10/16/18 20:00 Rx ISOSORBIDE MONOnitrate [Imdur ER] 30 mg PO QDAY #30 tablet 10/04/18 12/28/18 Unknown Rx Lisinopril [Zestril TAB] 5 mg PO DAILY #30 tablet 10/04/18 12/28/18 Unknown Rx cloNIDine [Catapres] 0.1 mg PO TID PRN 10/17/18 12/28/18 Unknown History Mupirocin [Bactroban 2% OINT] 1 applic TP TID #1 tube 10/29/18 12/28/18 Unknown Rx Clopidogrel [Plavix] 75 mg PO QDAY #30 tablet 11/28/18 12/28/18 Unknown Rx Clopidogrel [Plavix] 75 mg PO QDAY tablet 11/29/18 12/28/18 Unknown Rx oxyCODONE /ACETAMINOPHEN [Percocet 1 tab PO Q6H PRN #10 tablet 11/29/18 12/28/18 Unknown Rx 5/325 mg] Active Meds: Active Medications Acetaminophen (Tylenol) 650 mg PO Q4H PRN PRN Reason: Pain MILD(1-3)/Fever >100.5/PEREZ Last Admin: 01/14/19 06:15 Dose: 650 mg Documented by: Clonidine HCl (Catapres) 0.1 mg PO TID PRN PRN Reason: Blood Pressure Clopidogrel Bisulfate (Plavix) 75 mg PO QDAY [facility] Last Admin: 01/16/19 09:00 Dose: 75 mg Documented by: Dextrose (D50w (25gm) Syringe) 50 ml IV PRN PRN PRN Reason: Hypoglycemia Last Admin: 01/14/19 20:59 Dose: 50 ml Documented by: Enoxaparin Sodium (Lovenox) 30 mg SUB-Q QDAY [facility] Last Admin: 01/16/19 09:00 Dose: 30 mg Documented by: Piperacillin Sod/Tazobactam Sod (Zosyn/Ns 2.25 Gm/50ml) 2.25 gm in 50 mls @ 100 mls/hr IV Q8HR [facility]; Protocol Last Admin: 01/16/19 06:16 Dose: 100 mls/hr Documented by: Insulin Human Lispro (Humalog) 0 unit SUB-Q ACHS [facility]; Protocol Last Admin: 01/15/19 21:41 Dose: Not Given Documented by: Isosorbide Mononitrate (Imdur) 30 mg PO DAILY [facility] Last Admin: 01/15/19 10:23 Dose: 30 mg Documented by: Lisinopril (Zestril) 5 mg PO DAILY [facility] Last Admin: 01/15/19 10:24 Dose: 5 mg Documented by: Miscellaneous Medication (Ferric Citrate) 630 mg PO TIDWM [facility] Mupirocin (Bactroban 2%) 1 applic TP TID [facility] Last Admin: 01/16/19 08:00 Dose: 1 applic Documented by: Ondansetron HCl (Zofran) 4 mg IV Q8H PRN PRN Reason: Nausea And Vomiting Oxycodone/Acetaminophen (Percocet 5/325) 1 tab PO Q6H PRN PRN Reason: Pain, Moderate (4-6) Last Admin: 01/15/19 05:16 Dose: 1 tab Documented by: Pantoprazole Sodium (Protonix) 40 mg PO BID [facility] Last Admin: 01/16/19 09:00 Dose: 40 mg Documented by: Sodium Chloride (Sodium Chloride Flush Syringe 10 Ml) 10 ml IV BID [facility] Last Admin: 01/16/19 09:00 Dose: 10 ml Documented by: Sodium Chloride (Sodium Chloride Flush Syringe 10 Ml) 10 ml IV PRN PRN PRN Reason: LINE FLUSH Review of Systems ROS unobtainable: due to mental status Exam Vital Signs Resp BP Pulse Ox 18 155/78 98 01/13/19 16:42 01/13/19 16:42 01/13/19 16:42 - General physical appearance Positive: well developed, well nourished, no distress - Eyes Positive: PERRL, normal occular movement - ENT Positive: normal pinna, normal nares, normal mucosa, no hearing loss, no congestion - Neck Positive: no masses, no bruits, trachea midline, no venous distension - Respiratory Positive: normal expansion, normal respiratory effort, clear to auscultation - Cardiovascular Rhythm: regular Heart Sounds: Present: S1 & S2. Absent: rub, click Peripheral Pulses: abnormal (I cannot palpate her right DP or PT pulses.) - Breasts Breasts: deferred - Abdomen Abdomen: Present: soft, bowel sounds normal. Absent: tender, distended Hernia: none - Genitourinary Female Genitourinary: deferred - Integumentary other (The right great toe has dry gangrene. ) - Neurologic Neurologic: other (Pt is oriented to person and place. She believes the year is 2020 and cannot name the president.) Results - Labs 01/15/19 07:33 01/15/19 07:33 Abnormal lab results 01/15/19 01/15/19 01/15/19 Range/Units 11:51 15:30 21:31 POC Glucose 170 H 119 H 139 H (70-105) 01/16/19 01/16/19 Range/Units 07:15 12:11 POC Glucose 132 H 239 H (70-105) Assessment and Plan - Patient Problems (1) Dry gangrene Current Visit: Yes Status: Acute Plan to address problem: 1) Vascular consult - Dr. Jones is aware. 2) After she is revascularized (Arterial dopplers on 01/14/19 revealed monophasic flow throughout the RLE), I will discuss proceeding with a right great toe amputation with her next of kin.
--- NOTE | 2019-01-16 12:48 | Progress Note ---
Assessment and Plan Assessment and plan: Patient is 68 year old woman with a history of Hypertension, DM type 2, ESRD on HD, CAD, PVD and right lower extremity with gangrene of the ankle status post recent re-vascularization,comes to [facility] ED because she was severely tachycardiac at Hemodialysis center. In the emergency room she was found to have gangrene of the right foot, started on vancomycin. * Previous angiogram result Impression: 1) Aortogram and right lower extremity angiography demonstrating multifocal 80-90% stenosis within the proximal and mid SFA with complete occlusion of the mid to distal SFA and reconstitution of the popliteal artery and distal SFA through collaterals. There is single vessel runoff to the foot throughout peroneal artery. 2) Attempted revascularization from both an antegrade and pedal approach as described without success. 3) The patient will need to be rescheduled for re- vascularization procedure on her right leg with anesthesia from both an antegrade and popliteal artery approach. Acute Right leg limb ischemia: Continue palvix, Vascular consulted. ?Ampuation. Woundcare consulted Dry gangrene: Per vascular Patient was seen in the office on 01/12/19 with plan for revascularization on 01/18/19. Patient had dry gangrene at the time, not wet gangrene. Patient is now in the hospital. If patient's clinical status improves, plan will be for further revascularization on 01/18/19 Type 2 ME: Conservative management Leukocytosis- No evidence of sepsis. Continue abx, consult ID Diabetic foot nonhealing ulcer: Vascular re-evaluation, ?need for amputation- surgery consulted Decubitus ulcer at least stage 2/3 poa: consulted Wound care, HTN: continue antihypertensives ESRD on Hemodialysis TTS: Nephrology is following, monitor bmp closely, renal diet Diabetes Mellitus type 2: continue insulin and keep blood glucose less than 160 Anemia of chronic disease: monitored cbc closely and was stable Severe Protien calorie Malnutrition, poa: Director Facilities Maintenance consulted PAD- Prox Superficial Femoral Artery associated with critical limb ischemia, see above: Vascular Surgeon is managing, s/p Re-vascularization procedure of her right leg 11/27/18 with good result. d/w Dr. Jones, Started on Plavix Chronic edema of left upper extremity: The patient has had multiple workup with no find is a student reason why. This also houses her AV graft. Poor prognosis Disposition: continue inpatient care, Re-vascularization for . History Interval history: Patient was seen and examined. Follow-up on current diagnosis of PAD. No overnight events reported to me. Patient denies any chest pain, shortness breath, nausea/vomiting or severe headaches. Imaging, nursing note, chart, labs and old chart reviewed. Discussed with patient. Hospitalist Physical - Physical exam Narrative exam: Gen: cachetic, chronic ill appearing, BMI 16.8, NAD, Awake, Alert, Orientated x 2 HEENT: NCAT, EOMI, PERRL, OP Clear Neck: supple, no adenopathy, no thyromegaly, no JVD CVS/Heart: RRR, normal S1S2, pulses present bilaterally Chest/Lungs: CTA B, Symmetrical chest expansion, good air entry bilaterally GI/Abdomen: soft, NTND, good bowel sounds, no guarding or rebound /Bladder: no suprapubic tenderness, no CVA or paraspinal tenderness Extermity/Skin: right great toe necrotic, stage 2/3 sacral pressure ulcer, left heel DTI MSK: FROM x 4 Neuro: CN 2-12 grossly intact, no new focal deficits Psych: calm - Constitutional Vitals: Temp Pulse Resp BP Pulse Ox 98.7 F 85 18 149/76 99 01/16/19 07:46 01/16/19 11:00 01/16/19 11:00 01/16/19 07:46 01/16/19 09:00 Results - Labs CBC & Chem 7: 01/15/19 07:33 01/15/19 07:33 Labs: Laboratory Last Values WBC 22.0 K/mm3 (4.5-11.0) H 01/15/19 07:33 RBC 4.19 M/mm3 (3.65-5.03) 01/15/19 07:33 Hgb 10.8 gm/dl (10.1-14.3) 01/15/19 07:33 Hct 36.0 % (30.3-42.9) 01/15/19 07:33 MCV 86 fl (79-97) 01/15/19 07:33 MCH 26 pg (28-32) L 01/15/19 07:33 MCHC 30 % (30-34) 01/15/19 07:33 RDW 24.9 % (13.2-15.2) H 01/15/19 07:33 Plt Count 285 K/mm3 (140-440) 01/15/19 07:33 Add Manual Diff Complete 01/14/19 07:21 Total Counted 100 01/14/19 07:21 Seg Neutrophils % [employer] 01/13/19 18:30 Seg Neuts % (Manual) 99.0 % (40.0-70.0) H 01/14/19 07:21 0 % 01/14/19 07:21 0 % (13.4-35.0) L 01/14/19 07:21 Reactive Lymphs % (Man) 0 % 01/14/19 07:21 0 % (0.0-7.3) 01/14/19 07:21 1.0 % (0.0-4.3) 01/14/19 07:21 0 % (0.0-1.8) 01/14/19 07:21 0 % 01/14/19 07:21 0 % 01/14/19 07:21 0 % 01/14/19 07:21 0 % 01/14/19 07:21 Nucleated RBC % Not Reportable 01/14/19 07:21 Seg Neutrophils # Man 30.4 K/mm3 (1.8-7.7) H 01/14/19 07:21 Band Neutrophils # 0.0 K/mm3 01/14/19 07:21 0.0 K/mm3 (1.2-5.4) L 01/14/19 07:21 Abs React Lymphs (Man) 0.0 K/mm3 01/14/19 07:21 0.0 K/mm3 (0.0-0.8) 01/14/19 07:21 0.3 K/mm3 (0.0-0.4) 01/14/19 07:21 0.0 K/mm3 (0.0-0.1) 01/14/19 07:21 0.0 K/mm3 01/14/19 07:21 0.0 K/mm3 01/14/19 07:21 0.0 K/mm3 01/14/19 07:21 Blast Cells # 0.0 K/mm3 01/14/19 07:21 WBC Morphology Not Reportable 01/14/19 07:21 Hypersegmented Neuts Not Reportable 01/14/19 07:21 Hyposegmented Neuts Not Reportable 01/14/19 07:21 Hypogranular Neuts Not Reportable 01/14/19 07:21 Not Reportable 01/14/19 07:21 Not Reportable 01/14/19 07:21 Not Reportable 01/14/19 07:21 Not Reportable 01/14/19 07:21 Not Reportable 01/14/19 07:21 Not Reportable 01/14/19 07:21 Consistent w auto 01/14/19 07:21 Not Reportable 01/14/19 07:21 Plt Clumps, EDTA Not Reportable 01/14/19 07:21 Not Reportable 01/14/19 07:21 Not Reportable 01/14/19 07:21 Not Reportable 01/14/19 07:21 Plt Morphology Comment Not Reportable 01/14/19 07:21 RBC Morphology Not Reportable 01/14/19 07:21 Dimorphic RBCs Not Reportable 01/14/19 07:21 1+ 01/14/19 07:21 Not Reportable 01/14/19 07:21 Not Reportable 01/14/19 07:21 Not Reportable 01/14/19 07:21 Not Reportable 01/14/19 07:21 Not Reportable 01/14/19 07:21 Not Reportable 01/14/19 07:21 Not Reportable 01/14/19 07:21 Not Reportable 01/14/19 07:21 Not Reportable 01/14/19 07:21 Not Reportable 01/14/19 07:21 Not Reportable 01/14/19 07:21 Not Reportable 01/14/19 07:21 Not Reportable 01/14/19 07:21 Not Reportable 01/14/19 07:21 Not Reportable 01/14/19 07:21 Not Reportable 01/14/19 07:21 Not Reportable 01/14/19 07:21 1+ 01/14/19 07:21 Acanthocytes (Spur) Not Reportable 01/14/19 07:21 Rouleaux Not Reportable 01/14/19 07:21 Not Reportable 01/14/19 07:21 Not Reportable 01/14/19 07:21 Not Reportable 01/14/19 07:21 Not Reportable 01/14/19 07:21 Hem Pathologist Commnt No 01/14/19 07:21 PT 15.5 Sec. (12.2-14.9) H 01/13/19 17:42 INR 1.26 (0.87-1.13) H 01/13/19 17:42 APTT 50.0 Sec. (24.2-36.6) H 01/13/19 17:42 Sodium 137 mmol/L (137-145) 01/15/19 07:33 Potassium 3.5 mmol/L (3.6-5.0) L 01/15/19 07:33 Chloride 98.7 mmol/L (98-107) 01/15/19 07:33 Carbon Dioxide 22 mmol/L (22-30) 01/15/19 07:33 20 mmol/L 01/15/19 07:33 BUN 17 mg/dL (7-17) 01/15/19 07:33 4.1 mg/dL (0.7-1.2) H D 01/15/19 07:33 Estimated GFR 13 ml/min 01/15/19 07:33 4 % 01/15/19 07:33 Glucose 135 mg/dL (65-100) H 01/15/19 07:33 POC Glucose 239 (70-105) H 01/16/19 12:11 Lactic Acid 0.90 mmol/L (0.7-2.0) 01/13/19 17:54 Calcium 10.7 mg/dL (8.4-10.2) H 01/15/19 07:33 Magnesium 1.90 mg/dL (1.7-2.3) 01/13/19 17:54 0.50 mg/dL (0.1-1.2) 01/13/19 17:42 < 0.2 mg/dL (0-0.2) 01/13/19 17:42 0.3 mg/dL 01/13/19 17:42 AST 10 units/L (5-40) 01/13/19 17:42 ALT < 5 units/L (7-56) L 01/13/19 17:42 123 units/L (35-129) 01/13/19 17:42 73 units/L (30-135) 01/14/19 07:21 CK-MB (CK-2) 4.4 ng/mL (0.0-4.0) H 01/14/19 07:21 CK-MB (CK-2) Rel Index 6.0 (0-4) H 01/14/19 07:21 0.335 ng/mL (0.00-0.029) H* D 01/14/19 07:21 NT-Pro-B Natriuret Pep 98792 pg/mL (0-900) H 01/13/19 17:42 6.8 g/dL (6.3-8.2) 01/13/19 17:42 2.9 g/dL (3.9-5) L 01/13/19 17:42 0.7 % 01/13/19 17:42 Triglycerides 218 mg/dL (2-149) H 01/13/19 17:54 Cholesterol 130 mg/dL (50-199) 01/13/19 17:54 50 mg/dL (50-130) 01/13/19 17:54 37 mg/dL (40-59) L 01/13/19 17:54 3.51 % 01/13/19 17:54 TSH 3.000 mlU/mL (0.270-4.200) 01/13/19 17:42 Active Medications - Current Medications Current Medications: Generic Name Dose Route Start Last Admin Trade Name Freq PRN Reason Stop Dose Admin Acetaminophen 650 mg 01/13/19 22:37 01/14/19 06:15 Tylenol PO 650 mg Q4H PRN Administration Pain MILD(1-3)/Fever >100.5/PEREZ Clonidine HCl 0.1 mg 01/14/19 09:31 Catapres PO TID PRN Blood Pressure Clopidogrel Bisulfate 75 mg 01/14/19 10:00 01/16/19 09:00 Plavix PO 75 mg QDAY [facility] Administration Dextrose 50 ml 01/13/19 22:40 01/14/19 20:59 D50w (25gm) Syringe IV 50 ml PRN PRN Administration Hypoglycemia Enoxaparin Sodium 30 mg 01/14/19 10:00 01/16/19 09:00 Lovenox SUB-Q 30 mg QDAY [facility] Administration Piperacillin Sod/Tazobactam Sod 2.25 gm in 50 mls @ 100 mls/hr 01/13/19 23:00 01/16/19 06:16 Zosyn/Ns 2.25 Gm/50ml IV 100 mls/hr Q8HR [facility] Administration Protocol Insulin Human Lispro 0 unit 01/14/19 07:30 01/16/19 12:00 Humalog SUB-Q 3 unit ACHS [facility] Administration Protocol Isosorbide Mononitrate 30 mg 01/14/19 10:00 01/15/19 10:23 Imdur PO 30 mg DAILY [facility] Administration Lisinopril 5 mg 01/14/19 10:00 01/15/19 10:24 Zestril PO 5 mg DAILY [facility] Administration Miscellaneous Medication 630 mg 01/14/19 12:00 Ferric Citrate PO TIDWM [facility] Mupirocin 1 applic 01/14/19 14:00 01/16/19 08:00 Bactroban 2% TP 1 applic TID [facility] Administration Ondansetron HCl 4 mg 01/13/19 22:37 Zofran IV Q8H PRN Nausea And Vomiting Oxycodone/Acetaminophen 1 tab 01/14/19 09:31 01/15/19 05:16 Percocet 5/325 PO 1 tab Q6H PRN Administration Pain, Moderate (4-6) Pantoprazole Sodium 40 mg 01/14/19 10:00 01/16/19 09:00 Protonix PO 40 mg BID [facility] Administration Sodium Chloride 10 ml 01/14/19 10:00 01/16/19 09:00 Sodium Chloride Flush Syringe 10 Ml IV 10 ml BID [facility] Administration Sodium Chloride 10 ml 01/13/19 22:37 Sodium Chloride Flush Syringe 10 Ml IV PRN PRN LINE FLUSH Nutrition/Malnutrition Assess - Dietary Evaluation Nutrition/Malnutrition Findings: Nutrition Notes Start: 01/15/19 15:22 Freq: Status: Active Protocol: Document 01/15/19 15:22 RM (Rec: 01/15/19 15:31 [id number]) Nutrition Notes Need for Assessment generated from: window clerk Initial or Follow up Assessment Current Diagnosis Coronary Artery Disease, Diabetes,Hypertension Other Pertinent Diagnosis ESRD on HD (T/T/S), R foot wound w/gangrene, Sacral PU, PVD Current Diet Cardiac/Consistent CHO Labs/Tests Reviewed Pertinent Medications Reviewed Height 5 ft 2 in Weight 42.4 kg [place] Body Weight (kg) 50.00 BMI 17.1 Subjective/Other Information Screened for skin risk and malnutrition. Isiah 15 points. Pt lethargic and in pain at time of visit. Pt stated that MAGISTRATE her appetite was poor and that she ate bites of her meals. Stated that she has not eaten anything since admission. Unsure of dry wt. Noted L arm edema. No temporal or orbital wasting . Burn Absent Trauma Absent Minimum of two criteria Yes #1 Nutrition Diagnosis Malnutrition Etiology decreased appetite As Evidenced by Signs and Symptoms BMI 17.1, pt statement that MAGISTRATE she ate bites of her meals Is patient on ventilator? No Is Patient Ambulatory and/or Out of Bed No [place] [place] 1082.916 Kcal/Kg value to use for calculation 33 Approximate Energy Requirements Using 1399 kcal/Kg Additional Notes Protein Needs: 51-64g (1.2-1. 5g/kg) Fluid Needs: 1 ml/kcal Nutrition Intervention Change Diet Order: Continue current Add Supplement/Snack (indicate name/kcal Nepro 1 daily /protein ) Provides kCal: 425 Provides Protein (gm) 19 Goal #1 Meet at least 75% of calorie and protein needs via PO and ONS intakes Goal #2 Wt gain/maintenance Anticipated Discharge Needs: Cardiac/Consistent CHO diet Follow-Up By: 01/17/19 Additional Comments Follow for PO and ONS intakes
--- NOTE | 2019-01-16 14:50 | Progress Note ---
Assessment and Plan - Patient Problems (1) ESRD (end stage renal disease) on dialysis Current Visit: Yes Status: Chronic Plan to address problem: End-stage renal disease on dialysis Dialysis access left arm aVF Continue dialysis Tuesday schedule (2) Diabetes mellitus Current Visit: No Status: Chronic Qualifiers: Diabetes mellitus type: type 2 Plan to address problem: Diabetes mellitus Continue medications monitor fingersticks (3) Hypertension Current Visit: No Status: Chronic Qualifiers: Hypertension type: essential hypertension Qualified Code(s): I10 - Essential (primary) hypertension Plan to address problem: Hypertension controlled continue medications (4) Peripheral vascular disease Current Visit: Yes Status: Acute Plan to address problem: Peripheral vascular disease with dry gangrene vascular surgery following Subjective Interval history: 68-year-old lady with hypertension, end-stage renal disease, CAD, peripheral vascular disease, gangrene of the ankle Patient seen today Denies any orthopnea or PND. gangrene noted in right foot Left arm with swelling and AVF. She is drowsy Repeat Dialysis today. Objective - Vital Signs Vital signs: Vital Signs - 12hr 01/16/19 01/16/19 01/16/19 03:33 04:49 07:46 Temperature 98.5 F 98.7 F Pulse Rate 104 H 104 H 101 H Pulse Rate [ Right Radial] Respiratory 18 18 Rate Blood Pressure 150/77 149/76 O2 Sat by Pulse 100 95 Oximetry 01/16/19 01/16/19 01/16/19 09:00 11:00 11:22 Temperature 98.4 F Pulse Rate Pulse Rate [ 85 Right Radial] Respiratory 18 18 Rate Blood Pressure 149/82 O2 Sat by Pulse 99 Oximetry - General Appearance General appearance: well-developed, well-nourished EENT: ATNC, PERRL, mucous membranes moist Neck: no JVD Respiratory: Present: Clear to Ascultation Cardiology: regular, S1S2 Gastrointestinal: normal, normoactive bowel sounds Integumentary: no rash Neurologic: alert and oriented x3, CN 3-12 intact - Lab 01/15/19 07:33 01/15/19 07:33 Most recent lab results Calcium 10.7 mg/dL (8.4-10.2) H 01/15/19 07:33 Magnesium 1.90 mg/dL (1.7-2.3) 01/13/19 17:54 Medications & Allergies - Medications Allergies/Adverse Reactions: Allergies erythromycin base [Erythromycin Base] Allergy (Verified 10/26/18 18:04) Rash PATIENT ASK ME TO REMOVEDMED ON ALLERGY LIST. Home Medications: Home Medications Medication Instructions Recorded Confirmed Last Taken Type Ferric Citrate (Nf) [Auryxia] 630 mg PO TIDWM 09/05/18 12/28/18 11/18/18 History Pantoprazole [Protonix TAB] 40 mg PO BID #60 tablet 10/03/18 12/28/18 10/16/18 20:00 Rx ISOSORBIDE MONOnitrate [Imdur ER] 30 mg PO QDAY #30 tablet 10/04/18 12/28/18 Unknown Rx Lisinopril [Zestril TAB] 5 mg PO DAILY #30 tablet 10/04/18 12/28/18 Unknown Rx cloNIDine [Catapres] 0.1 mg PO TID PRN 10/17/18 12/28/18 Unknown History Mupirocin [Bactroban 2% OINT] 1 applic TP TID #1 tube 10/29/18 12/28/18 Unknown Rx Clopidogrel [Plavix] 75 mg PO QDAY #30 tablet 11/28/18 12/28/18 Unknown Rx Clopidogrel [Plavix] 75 mg PO QDAY tablet 11/29/18 12/28/18 Unknown Rx oxyCODONE /ACETAMINOPHEN [Percocet 1 tab PO Q6H PRN #10 tablet 11/29/18 12/28/18 Unknown Rx 5/325 mg] Active Medications: Generic Name Dose Route Start Last Admin Trade Name Freq PRN Reason Stop Dose Admin Acetaminophen 650 mg 01/13/19 22:37 01/14/19 06:15 Tylenol PO 650 mg Q4H PRN Administration Pain MILD(1-3)/Fever >100.5/PEREZ Clonidine HCl 0.1 mg 01/14/19 09:31 Catapres PO TID PRN Blood Pressure Clopidogrel Bisulfate 75 mg 01/14/19 10:00 01/16/19 09:00 Plavix PO 75 mg QDAY [facility] Administration Dextrose 50 ml 01/13/19 22:40 01/14/19 20:59 D50w (25gm) Syringe IV 50 ml PRN PRN Administration Hypoglycemia Enoxaparin Sodium 30 mg 01/14/19 10:00 01/16/19 09:00 Lovenox SUB-Q 30 mg QDAY [facility] Administration Piperacillin Sod/Tazobactam Sod 2.25 gm in 50 mls @ 100 mls/hr 01/13/19 23:00 01/16/19 06:16 Zosyn/Ns 2.25 Gm/50ml IV 100 mls/hr Q8HR [facility] Administration Protocol Insulin Human Lispro 0 unit 01/14/19 07:30 01/16/19 12:00 Humalog SUB-Q 3 unit ACHS [facility] Administration Protocol Isosorbide Mononitrate 30 mg 01/14/19 10:00 01/16/19 10:00 Imdur PO Not Given DAILY [facility] Lisinopril 5 mg 01/14/19 10:00 01/16/19 10:00 Zestril PO Not Given DAILY [facility] Miscellaneous Medication 630 mg 01/14/19 12:00 Ferric Citrate PO TIDWM [facility] Mupirocin 1 applic 01/14/19 14:00 01/16/19 14:26 Bactroban 2% TP 1 applic TID [facility] Administration Ondansetron HCl 4 mg 01/13/19 22:37 Zofran IV Q8H PRN Nausea And Vomiting Oxycodone/Acetaminophen 1 tab 01/14/19 09:31 01/15/19 05:16 Percocet 5/325 PO 1 tab Q6H PRN Administration Pain, Moderate (4-6) Pantoprazole Sodium 40 mg 01/14/19 10:00 01/16/19 09:00 Protonix PO 40 mg BID [facility] Administration Sodium Chloride 10 ml 01/14/19 10:00 01/16/19 09:00 Sodium Chloride Flush Syringe 10 Ml IV 10 ml BID [facility] Administration Sodium Chloride 10 ml 01/13/19 22:37 Sodium Chloride Flush Syringe 10 Ml IV PRN PRN LINE FLUSH
[2019-01-16] MEDS ORDERED: NACL 0.9 (PRIMING MACHINE ONLY DIALYSIS) MC ONE (17:38)
[2019-01-16] MEDS: TYLENOL PO PRN (23:36)
[2019-01-17 00:56] LABS: Basophils # (Auto) 0.2 K/mm3 (0.0-0.1); Basophils % (Auto) 1.2 % (0.0-1.8); Eosinophils % (Auto) 0.1 % (0.0-4.3); Lymphocytes # (Auto) 0.4 K/mm3 (1.2-5.4); Lymphocytes % (Auto) 2.3 % (13.4-35.0); Mean Corpuscular HGB Conc 31 % (30-34); Mean Corpuscular Volume 84 fl (79-97); Monocytes # (Auto) 1.1 K/mm3 (0.0-0.8); Monocytes % (Auto) 6.4 % (0.0-7.3); Platelet Count 292 K/mm3 (140-440); Red Blood Count 4.39 M/mm3 (3.65-5.03)
[2019-01-17 01:02] LABS: Hematocrit 36.9 % (30.3-42.9); Hemoglobin 11.3 gm/dl (10.1-14.3); Red Cell Distribution Width 24.6 % (13.2-15.2)
[2019-01-17] MEDS: ZOSYN/NS 2.25 GM/50ML 2.25 GM/50 ML BAG IV SCH ×3 (05:23→23:00)
[2019-01-17] MEDS: SODIUM CHLORIDE FLUSH SYRINGE 10 ML IV PRN (05:27)
[2019-01-17] MEDS: HumaLOG SUB-Q SCH ×3 (09:10→22:43)
[2019-01-17] MEDS: LOVENOX SUB-Q SCH (09:58)
[2019-01-17] MEDS: BACTROBAN 2% TP SCH ×3 (09:58→21:45)
[2019-01-17] MEDS: IMDUR PO SCH (09:59)
[2019-01-17] MEDS: PROTONIX PO SCH ×2 (09:59→22:44)
[2019-01-17] MEDS: ZESTRIL PO SCH (10:00)
[2019-01-17] MEDS: PLAVIX PO SCH (10:00)
[2019-01-17] MEDS: SODIUM CHLORIDE FLUSH SYRINGE 10 ML IV SCH ×2 (10:01→22:44)
[2019-01-17 11:21] LABS: Mean Corpuscular HGB Conc 30 % (30-34); Mean Corpuscular Volume 85 fl (79-97); Platelet Count 259 K/mm3 (140-440); Red Blood Count 4.22 M/mm3 (3.65-5.03)
[2019-01-17 11:32] LABS: Hematocrit 35.7 % (30.3-42.9); Hemoglobin 10.8 gm/dl (10.1-14.3)
[2019-01-17 12:03] LABS: Calcium 10.1 mg/dL (8.4-10.2)
--- NOTE | 2019-01-17 13:18 | Progress Note ---
Assessment and Plan - Patient Problems (1) Dry gangrene Current Visit: Yes Status: Acute Plan to address problem: 1) Awaiting Vascular surgery consult and re-vascularization. 2) Possible TMA of right great toe after #1. Subjective Date of service: 01/17/19 Patient Reports: Positive: no new complaints Objective Vital Signs - 12hr 01/17/19 01/17/19 01/17/19 04:58 07:39 09:59 Temperature 98.0 F Pulse Rate 101 H 102 H 98 H Respiratory 18 18 Rate Blood Pressure 139/82 140/77 140/77 Blood Pressure [Left] O2 Sat by Pulse 100 100 Oximetry 01/17/19 01/17/19 10:00 12:14 Temperature 97.9 F Pulse Rate 98 H 68 Respiratory 18 Rate Blood Pressure 140/77 Blood Pressure 117/70 [Left] O2 Sat by Pulse 98 96 Oximetry - Integumentary other (No change in examination of the toe.) - Labs 01/17/19 10:25 01/17/19 10:25 Diabetes panel 01/17/19 Range/Units 10:25 Sodium 141 (137-145) mmol/L Potassium 2.9 L* (3.6-5.0) mmol/L Chloride 97.7 L (98-107) mmol/L Carbon Dioxide 25 (22-30) mmol/L BUN 12 (7-17) mg/dL Creatinine 3.5 H (0.7-1.2) mg/dL Glucose 163 H (65-100) mg/dL Calcium 10.1 (8.4-10.2) mg/dL Calcium panel 01/17/19 Range/Units 10:25 Calcium 10.1 (8.4-10.2) mg/dL Pituitary panel 01/17/19 Range/Units 10:25 Sodium 141 (137-145) mmol/L Potassium 2.9 L* (3.6-5.0) mmol/L Chloride 97.7 L (98-107) mmol/L Carbon Dioxide 25 (22-30) mmol/L BUN 12 (7-17) mg/dL Creatinine 3.5 H (0.7-1.2) mg/dL Glucose 163 H (65-100) mg/dL Calcium 10.1 (8.4-10.2) mg/dL Adrenal panel 01/17/19 Range/Units 10:25 Sodium 141 (137-145) mmol/L Potassium 2.9 L* (3.6-5.0) mmol/L Chloride 97.7 L (98-107) mmol/L Carbon Dioxide 25 (22-30) mmol/L BUN 12 (7-17) mg/dL Creatinine 3.5 H (0.7-1.2) mg/dL Glucose 163 H (65-100) mg/dL Calcium 10.1 (8.4-10.2) mg/dL
--- NOTE | 2019-01-17 13:40 | Progress Note ---
Assessment and Plan - Patient Problems (1) ESRD (end stage renal disease) on dialysis Current Visit: Yes Status: Chronic Plan to address problem: End-stage renal disease on dialysis Dialysis access left arm aVF Continue dialysis Tuesday schedule (2) Diabetes mellitus Current Visit: No Status: Chronic Qualifiers: Diabetes mellitus type: type 2 Plan to address problem: Diabetes mellitus Continue medications monitor fingersticks (3) Hypertension Current Visit: No Status: Chronic Qualifiers: Hypertension type: essential hypertension Qualified Code(s): I10 - Essential (primary) hypertension Plan to address problem: Hypertension controlled continue medications (4) Peripheral vascular disease Current Visit: Yes Status: Acute Plan to address problem: Peripheral vascular disease with dry gangrene vascular surgery following (5) Hypokalemia Current Visit: Yes Status: Acute Plan to address problem: Hypokalemia post dialsyis will give 20meq potassium Use 3K bath for next treatment . Subjective Interval history: 68-year-old lady with hypertension, end-stage renal disease, CAD, peripheral vascular disease, gangrene of the ankle Patient seen today Denies any orthopnea or PND. gangrene noted in right foot awaiting revascularization. Left arm with swelling and AVF. Objective - Vital Signs Vital signs: Vital Signs - 12hr 01/17/19 01/17/19 01/17/19 04:58 07:39 09:59 Temperature 98.0 F Pulse Rate 101 H 102 H 98 H Respiratory 18 18 Rate Blood Pressure 139/82 140/77 140/77 Blood Pressure [Left] O2 Sat by Pulse 100 100 Oximetry 01/17/19 01/17/19 10:00 12:14 Temperature 97.9 F Pulse Rate 98 H 68 Respiratory 18 Rate Blood Pressure 140/77 Blood Pressure 117/70 [Left] O2 Sat by Pulse 98 96 Oximetry - General Appearance General appearance: well-developed, well-nourished EENT: ATNC, PERRL Neck: no JVD Respiratory: Present: Clear to Ascultation Cardiology: regular, S1S2 Gastrointestinal: normal, normoactive bowel sounds Integumentary: no rash Neurologic: no focal deficit, alert and oriented x3, CN 3-12 intact Psychiatric: mood/affect appropriate - Lab 01/17/19 10:25 01/17/19 10:25 Most recent lab results Calcium 10.1 mg/dL (8.4-10.2) 01/17/19 10:25 Magnesium 1.90 mg/dL (1.7-2.3) 01/13/19 17:54 - Imaging Chest x-ray: image reviewed (I reviewed chest x-ray without overt edema) Medications & Allergies - Medications Allergies/Adverse Reactions: Allergies erythromycin base [Erythromycin Base] Allergy (Verified 10/26/18 18:04) Rash PATIENT ASK ME TO REMOVEDMED ON ALLERGY LIST. Home Medications: Home Medications Medication Instructions Recorded Confirmed Last Taken Type Ferric Citrate (Nf) [Auryxia] 630 mg PO TIDWM 09/05/18 12/28/18 11/18/18 History Pantoprazole [Protonix TAB] 40 mg PO BID #60 tablet 10/03/18 12/28/18 10/16/18 20:00 Rx ISOSORBIDE MONOnitrate [Imdur ER] 30 mg PO QDAY #30 tablet 10/04/18 12/28/18 Unknown Rx Lisinopril [Zestril TAB] 5 mg PO DAILY #30 tablet 10/04/18 12/28/18 Unknown Rx cloNIDine [Catapres] 0.1 mg PO TID PRN 10/17/18 12/28/18 Unknown History Mupirocin [Bactroban 2% OINT] 1 applic TP TID #1 tube 10/29/18 12/28/18 Unknown Rx Clopidogrel [Plavix] 75 mg PO QDAY #30 tablet 11/28/18 12/28/18 Unknown Rx Clopidogrel [Plavix] 75 mg PO QDAY tablet 11/29/18 12/28/18 Unknown Rx oxyCODONE /ACETAMINOPHEN [Percocet 1 tab PO Q6H PRN #10 tablet 11/29/18 12/28/18 Unknown Rx 5/325 mg] Active Medications: Generic Name Dose Route Start Last Admin Trade Name Freq PRN Reason Stop Dose Admin Acetaminophen 650 mg 01/13/19 22:37 01/16/19 23:36 Tylenol PO 650 mg Q4H PRN Administration Pain MILD(1-3)/Fever >100.5/PEREZ Clonidine HCl 0.1 mg 01/14/19 09:31 Catapres PO TID PRN Blood Pressure Clopidogrel Bisulfate 75 mg 01/14/19 10:00 01/17/19 10:00 Plavix PO 75 mg QDAY CALIXTO Administration Dextrose 50 ml 01/13/19 22:40 01/14/19 20:59 D50w (25gm) Syringe IV 50 ml PRN PRN Administration Hypoglycemia Enoxaparin Sodium 30 mg 01/14/19 10:00 01/17/19 09:58 Lovenox SUB-Q 30 mg QDAY [facility] Administration Piperacillin Sod/Tazobactam Sod 2.25 gm in 50 mls @ 100 mls/hr 01/13/19 23:00 01/17/19 05:23 Zosyn/Ns 2.25 Gm/50ml IV 100 mls/hr Q8HR [facility] Administration Protocol Insulin Human Lispro 0 unit 01/14/19 07:30 01/17/19 09:10 [facility] SUB-Q [facility] Isosorbide Mononitrate 30 mg 01/14/19 10:00 01/17/19 09:59 Imdur PO 30 mg DAILY [facility] Administration Lisinopril 5 mg 01/14/19 10:00 01/17/19 10:00 Zestril PO 5 mg DAILY [facility] Administration Miscellaneous Medication 630 mg 01/14/19 12:00 Ferric Citrate PO TIDWM [facility] Mupirocin 1 applic 01/14/19 14:00 01/17/19 09:58 Bactroban 2% TP 1 applic TID [facility] Administration Ondansetron HCl 4 mg 01/13/19 22:37 Zofran IV Q8H PRN Nausea And Vomiting Oxycodone/Acetaminophen 1 tab 01/14/19 09:31 01/15/19 05:16 Percocet 5/325 PO 1 tab Q6H PRN Administration Pain, Moderate (4-6) Pantoprazole Sodium 40 mg 01/14/19 10:00 01/17/19 09:59 Protonix PO 40 mg BID [facility] Administration Potassium Chloride 20 meq 01/17/19 14:00 K-Dur PO NOW CALIXTO Sodium Chloride 10 ml 01/14/19 10:00 01/17/19 10:01 Sodium Chloride Flush Syringe 10 Ml IV 10 ml BID [facility]TO Administration Sodium Chloride 10 ml 01/13/19 22:37 01/17/19 05:27 Sodium Chloride Flush Syringe 10 Ml IV 10 ml PRN PRN Administration LINE FLUSH
[2019-01-17] MEDS ORDERED: K-DUR PO SCH (14:00)
--- NOTE | 2019-01-17 14:38 | Progress Note ---
Assessment and Plan Cultures: 01/13/19 Blood: No growth A/P: 68 year old woman with a past medical history of Hypertension, diabetes, ESRD, CAD PVD, Right lower extremity gangrene.Admitted with: 1. Sepsis on Admission: Improved. Leukocytosis trending down. Etiology right great toe dry gangrene vs non healing foot ulcers vs ischemia. No fevers. Blood cultures in progress. Chest xary no consolidation. No other source of infection on exam. Likely Leukemoid reaction form tissue ischemia, gangrene and cellulitis. Currently being treated with Zosyn and vancomycin. 2. Right Toe Dry gangrene:. Agree with surgical recommendation for right great toe amputation. 3. Non healing right foot ulcers: 2 ulcers on the dorsum of the right foot. Superficial no drainage. 4. PVD with Right leg ischemia: s/p right leg endovasular revasuclarzation 11/2018. Arterial duplex shows stable moderate generalized atherosclerosis with a similar stenosis of the mid right SFA. 5. Sacral Wound: superficial. Continue wound care 6. Type 2 diabetes: recommend tight glycemic control 7. ESRD on HD: antibiotics renally adjusted. Neprology following. Recommendations: -Continue Vancomycin and Zosyn -Continue wound care -Agree with right great toe amputation please send for cultures and pathology. -Final antibiotic plan based on surgical outcome. [facility] M: [phone] O:[phone] Subjective Date of service: 01/17/19 Interval history: Patient seen and examined. Reports no acute distress or generalized weakness. Daughter at bedside. No fevers. Objective - Exam Narrative Exam: Constitutional: Alert.. Awake. No acute distress Head, Ears, Nose: Normocephalic, atraumatic. External ears, nose normal Eyes: Conjunctivae/corneas clear. No icterus. No ptosis. Neck: Supple, no meningeal signs Oral: dentition poor. No thrush. oral mucosa moist Cardiovascular: S1, S2 normal. Respiratory: Good air entry, clear to auscultation bilaterally GI: Soft, non-tender; bowel sounds normal. No peritoneal signs Musculoskeletal: No pedal edema, no cyanosis. Skin: bilateral lower extremity with right toe dry gangrene. Bilateral lower extremity with dystrophic toenails. 2 superficial ulcerations on right dorsum. Right lower extremity tenderness. Hem/Lymphatic: No palpable cervical or supraclavicular nodes. No lymphangitis Psych: Mood ok. Neurological: Awake, alert, oriented. - Constitutional Vitals: Vital Signs Temp Pulse Resp BP Pulse Ox 97.9 F 68 18 117/70 96 01/17/19 12:14 01/17/19 12:14 01/17/19 12:14 01/17/19 12:14 01/17/19 12:14 Temperature -Last 24 Hours Temperature 97.9 F Temperature 98.0 F Temperature 98.3 F Temperature 98.0 F Temperature 98.4 F Temperature 97.8 F - Labs CBC & Chem 7: 01/17/19 10:25 01/17/19 10:25 Labs: Abnormal lab results 01/16/19 01/17/19 01/17/19 Range/Units 20:19 00:42 07:39 WBC 16.8 H (4.5-11.0) K/mm3 MCH 26 L (28-32) pg RDW 24.6 H (13.2-15.2) % Lymph % (Auto) 2.3 L (13.4-35.0) % Lymph # 0.4 L (1.2-5.4) K/mm3 [place] # 1.1 H (0.0-0.8) K/mm3 Baso # 0.2 H (0.0-0.1) K/mm3 Seg Neutrophils % 90.0 H (40.0-70.0) % Seg Neutrophils # 15.2 H (1.8-7.7) K/mm3 Potassium (3.6-5.0) mmol/L Chloride (98-107) mmol/L Creatinine (0.7-1.2) mg/dL Glucose (65-100) mg/dL POC Glucose 149 H 156 H (70-105) 01/17/19 01/17/19 01/17/19 Range/Units 10:25 10:25 11:40 WBC 17.1 H (4.5-11.0) K/mm3 MCH 26 L (28-32) pg RDW 25.0 H (13.2-15.2) % Lymph % (Auto) (13.4-35.0) % Lymph # (1.2-5.4) K/mm3 [place] # (0.0-0.8) K/mm3 Baso # (0.0-0.1) K/mm3 Seg Neutrophils % (40.0-70.0) % Seg Neutrophils # (1.8-7.7) K/mm3 Potassium 2.9 L* (3.6-5.0) mmol/L Chloride 97.7 L (98-107) mmol/L Creatinine 3.5 H (0.7-1.2) mg/dL Glucose 163 H (65-100) mg/dL POC Glucose 144 H (70-105)
--- NOTE | 2019-01-17 15:31 | Progress Note ---
Assessment and Plan Assessment and plan: Patient is 68 year old woman with a history of Hypertension, DM type 2, ESRD on HD, CAD, PVD and right lower extremity with gangrene of the ankle status post recent re-vascularization,comes to [facility] ED because she was severely tachycardiac at Hemodialysis center. In the emergency room she was found to have gangrene of the right foot, started on vancomycin. * Previous angiogram result Impression: 1) Aortogram and right lower extremity angiography demonstrating multifocal 80-90% stenosis within the proximal and mid SFA with complete occlusion of the mid to distal SFA and reconstitution of the popliteal artery and distal SFA through collaterals. There is single vessel runoff to the foot throughout peroneal artery. 2) Attempted revascularization from both an antegrade and pedal approach as described without success. 3) The patient will need to be rescheduled for re- vascularization procedure on her right leg with anesthesia from both an antegrade and popliteal artery approach. Acute Right leg limb ischemia: Continue palvix, Vascular consulted. ?Ampuation. Woundcare consulted Dry gangrene: Per vascular Patient was seen in the office on 01/12/19 with plan for revascularization on 01/18/19. Patient had dry gangrene at the time, not wet gangrene. Patient is now in the hospital. If patient's clinical status improves, plan will be for further revascularization on 01/18/19 Type 2 VA: Conservative management Leukocytosis- No evidence of sepsis. Continue abx, consult ID Diabetic foot nonhealing ulcer: Vascular re-evaluation, ?need for amputation- surgery consulted Decubitus ulcer at least stage 2/3 poa: consulted Wound care, HTN: continue antihypertensives ESRD on Hemodialysis TTS: Nephrology is following, monitor bmp closely, renal diet Diabetes Mellitus type 2: continue insulin and keep blood glucose less than 160 Anemia of chronic disease: monitored cbc closely and was stable Severe Protien calorie Malnutrition, poa: Frameman consulted PAD- Prox Superficial Femoral Artery associated with critical limb ischemia, see above: Vascular Surgeon is managing, s/p Re-vascularization procedure of her right leg 11/27/18 with good result. d/w Dr. Jones, Started on Plavix Chronic edema of left upper extremity: The patient has had multiple workup with no find is a student reason why. This also houses her AV graft. Poor prognosis Disposition: continue inpatient care, Re-vascularization for . History Interval history: Patient was seen and examined. Follow-up on current diagnosis of PAD. No overnight events reported to me. Patient denies any chest pain, shortness breath, nausea/vomiting or severe headaches. Imaging, nursing note, chart, labs and old chart reviewed. Discussed with patient. Hospitalist Physical - Physical exam Narrative exam: Gen: cachetic, chronic ill appearing, BMI 16.8, NAD, Awake, Alert, Orientated x 2 HEENT: NCAT, EOMI, PERRL, OP Clear Neck: supple, no adenopathy, no thyromegaly, no JVD CVS/Heart: RRR, normal S1S2, pulses present bilaterally Chest/Lungs: CTA B, Symmetrical chest expansion, good air entry bilaterally GI/Abdomen: soft, NTND, good bowel sounds, no guarding or rebound /Bladder: no suprapubic tenderness, no CVA or paraspinal tenderness Extermity/Skin: right great toe necrotic, stage 2/3 sacral pressure ulcer, left heel DTI MSK: FROM x 4 Neuro: CN 2-12 grossly intact, no new focal deficits Psych: calm - Constitutional Vitals: Temp Pulse Resp BP Pulse Ox 97.9 F 68 18 117/70 96 01/17/19 12:14 01/17/19 12:14 01/17/19 12:14 01/17/19 12:14 01/17/19 12:14 Results - Labs CBC & Chem 7: 01/17/19 10:25 01/17/19 10:25 Labs: Laboratory Last Values WBC 17.1 K/mm3 (4.5-11.0) H 01/17/19 10:25 RBC 4.22 M/mm3 (3.65-5.03) 01/17/19 10:25 Hgb 10.8 gm/dl (10.1-14.3) 01/17/19 10:25 Hct 35.7 % (30.3-42.9) 01/17/19 10:25 MCV 85 fl (79-97) 01/17/19 10:25 MCH 26 pg (28-32) L 01/17/19 10:25 MCHC 30 % (30-34) 01/17/19 10:25 RDW 25.0 % (13.2-15.2) H 01/17/19 10:25 Plt Count 259 K/mm3 (140-440) 01/17/19 10:25 Lymph % (Auto) 2.3 % (13.4-35.0) L 01/17/19 00:42 [place] % (Auto) 6.4 % (0.0-7.3) 01/17/19 00:42 Eos % (Auto) 0.1 % (0.0-4.3) 01/17/19 00:42 Baso % (Auto) 1.2 % (0.0-1.8) 01/17/19 00:42 Lymph # 0.4 K/mm3 (1.2-5.4) L 01/17/19 00:42 [place] # 1.1 K/mm3 (0.0-0.8) H 01/17/19 00:42 Eos # 0.0 K/mm3 (0.0-0.4) 01/17/19 00:42 Baso # 0.2 K/mm3 (0.0-0.1) H 01/17/19 00:42 Add Manual Diff Complete 01/14/19 07:21 Total Counted 100 01/14/19 07:21 Seg Neutrophils % 90.0 % (40.0-70.0) H 01/17/19 00:42 Seg Neuts % (Manual) 99.0 % (40.0-70.0) H 01/14/19 07:21 0 % 01/14/19 07:21 0 % (13.4-35.0) L 01/14/19 07:21 Reactive Lymphs % (Man) 0 % 01/14/19 07:21 0 % (0.0-7.3) 01/14/19 07:21 1.0 % (0.0-4.3) 01/14/19 07:21 0 % (0.0-1.8) 01/14/19 07:21 0 % 01/14/19 07:21 0 % 01/14/19 07:21 0 % 01/14/19 07:21 0 % 01/14/19 07:21 Nucleated RBC % Not Reportable 01/14/19 07:21 Seg Neutrophils # 15.2 K/mm3 (1.8-7.7) H 01/17/19 00:42 Seg Neutrophils # Man 30.4 K/mm3 (1.8-7.7) H 01/14/19 07:21 Band Neutrophils # 0.0 K/mm3 01/14/19 07:21 0.0 K/mm3 (1.2-5.4) L 01/14/19 07:21 Abs React Lymphs (Man) 0.0 K/mm3 01/14/19 07:21 0.0 K/mm3 (0.0-0.8) 01/14/19 07:21 0.3 K/mm3 (0.0-0.4) 01/14/19 07:21 0.0 K/mm3 (0.0-0.1) 01/14/19 07:21 0.0 K/mm3 01/14/19 07:21 0.0 K/mm3 01/14/19 07:21 0.0 K/mm3 01/14/19 07:21 Blast Cells # 0.0 K/mm3 01/14/19 07:21 WBC Morphology Not Reportable 01/14/19 07:21 Hypersegmented Neuts Not Reportable 01/14/19 07:21 Hyposegmented Neuts Not Reportable 01/14/19 07:21 Hypogranular Neuts Not Reportable 01/14/19 07:21 Not Reportable 01/14/19 07:21 Not Reportable 01/14/19 07:21 Not Reportable 01/14/19 07:21 Not Reportable 01/14/19 07:21 Not Reportable 01/14/19 07:21 Not Reportable 01/14/19 07:21 Consistent w auto 01/14/19 07:21 Not Reportable 01/14/19 07:21 Plt Clumps, EDTA Not Reportable 01/14/19 07:21 Not Reportable 01/14/19 07:21 Not Reportable 01/14/19 07:21 Not Reportable 01/14/19 07:21 Plt Morphology Comment Not Reportable 01/14/19 07:21 RBC Morphology Not Reportable 01/14/19 07:21 Dimorphic RBCs Not Reportable 01/14/19 07:21 1+ 01/14/19 07:21 Not Reportable 01/14/19 07:21 Not Reportable 01/14/19 07:21 Not Reportable 01/14/19 07:21 Not Reportable 01/14/19 07:21 Not Reportable 01/14/19 07:21 Not Reportable 01/14/19 07:21 Not Reportable 01/14/19 07:21 Not Reportable 01/14/19 07:21 Not Reportable 01/14/19 07:21 Not Reportable 01/14/19 07:21 Not Reportable 01/14/19 07:21 Not Reportable 01/14/19 07:21 Not Reportable 01/14/19 07:21 Not Reportable 01/14/19 07:21 Not Reportable 01/14/19 07:21 Not Reportable 01/14/19 07:21 Not Reportable 01/14/19 07:21 1+ 01/14/19 07:21 Acanthocytes (Spur) Not Reportable 01/14/19 07:21 Rouleaux Not Reportable 01/14/19 07:21 Not Reportable 01/14/19 07:21 Not Reportable 01/14/19 07:21 Not Reportable 01/14/19 07:21 Not Reportable 01/14/19 07:21 Hem Pathologist Commnt No 01/14/19 07:21 PT 15.5 Sec. (12.2-14.9) H 01/13/19 17:42 INR 1.26 (0.87-1.13) H 01/13/19 17:42 APTT 50.0 Sec. (24.2-36.6) H 01/13/19 17:42 Sodium 141 mmol/L (137-145) 01/17/19 10:25 Potassium 2.9 mmol/L (3.6-5.0) L* 01/17/19 10:25 Chloride 97.7 mmol/L (98-107) L 01/17/19 10:25 Carbon Dioxide 25 mmol/L (22-30) 01/17/19 10:25 21 mmol/L 01/17/19 10:25 BUN 12 mg/dL (7-17) 01/17/19 10:25 3.5 mg/dL (0.7-1.2) H 01/17/19 10:25 Estimated GFR 16 ml/min 01/17/19 10:25 3 % 01/17/19 10:25 Glucose 163 mg/dL (65-100) H 01/17/19 10:25 POC Glucose 144 (70-105) H 01/17/19 11:40 Lactic Acid 0.90 mmol/L (0.7-2.0) 01/13/19 17:54 Calcium 10.1 mg/dL (8.4-10.2) 01/17/19 10:25 Magnesium 1.90 mg/dL (1.7-2.3) 01/13/19 17:54 0.50 mg/dL (0.1-1.2) 01/13/19 17:42 < 0.2 mg/dL (0-0.2) 01/13/19 17:42 0.3 mg/dL 01/13/19 17:42 AST 10 units/L (5-40) 01/13/19 17:42 ALT < 5 units/L (7-56) L 01/13/19 17:42 123 units/L (35-129) 01/13/19 17:42 73 units/L (30-135) 01/14/19 07:21 CK-MB (CK-2) 4.4 ng/mL (0.0-4.0) H 01/14/19 07:21 CK-MB (CK-2) Rel Index 6.0 (0-4) H 01/14/19 07:21 0.335 ng/mL (0.00-0.029) H* D 01/14/19 07:21 NT-Pro-B Natriuret Pep 63889 pg/mL (0-900) H 01/13/19 17:42 6.8 g/dL (6.3-8.2) 01/13/19 17:42 2.9 g/dL (3.9-5) L 01/13/19 17:42 0.7 % 01/13/19 17:42 Triglycerides 218 mg/dL (2-149) H 01/13/19 17:54 Cholesterol 130 mg/dL (50-199) 01/13/19 17:54 50 mg/dL (50-130) 01/13/19 17:54 37 mg/dL (40-59) L 01/13/19 17:54 3.51 % 01/13/19 17:54 TSH 3.000 mlU/mL (0.270-4.200) 01/13/19 17:42 Random Vancomycin 10.7 ug/mL (0-40.0) 01/17/19 10:25 Active Medications - Current Medications Current Medications: Generic Name Dose Route Start Last Admin Trade Name Freq PRN Reason Stop Dose Admin Acetaminophen 650 mg 01/13/19 22:37 01/16/19 23:36 Tylenol PO 650 mg Q4H PRN Administration Pain MILD(1-3)/Fever >100.5/PEREZ Clonidine HCl 0.1 mg 01/14/19 09:31 Catapres PO TID PRN Blood Pressure Clopidogrel Bisulfate 75 mg 01/14/19 10:00 01/17/19 10:00 Plavix PO 75 mg QDAY CALIXTO Administration Dextrose 50 ml 01/13/19 22:40 01/14/19 20:59 D50w (25gm) Syringe IV 50 ml PRN PRN Administration Hypoglycemia Enoxaparin Sodium 30 mg 01/14/19 10:00 01/17/19 09:58 Lovenox SUB-Q 30 mg QDAY CALIXTO Administration Piperacillin Sod/Tazobactam Sod 2.25 gm in 50 mls @ 100 mls/hr 01/13/19 23:00 01/17/19 05:23 Zosyn/Ns 2.25 Gm/50ml IV 100 mls/hr Q8HR [facility]TO Administration Protocol Vancomycin HCl 1 gm in 250 mls @ 167.007 mls/hr 01/17/19 22:00 Vancomycin/Ns 1 Gm/250 Ml IV 01/17/19 23:29 ONCE ONE Insulin Human Lispro 0 unit 01/14/19 07:30 01/17/19 09:10 Humalog SUB-Q Not Given [facility] Protocol Isosorbide Mononitrate 30 mg 01/14/19 10:00 01/17/19 09:59 Imdur PO 30 mg DAILY [facility] Administration Lisinopril 5 mg 01/14/19 10:00 01/17/19 10:00 Zestril PO 5 mg DAILY [facility] Administration Miscellaneous Medication 630 mg 01/14/19 12:00 Ferric Citrate PO TIDWM [facility] Mupirocin 1 applic 01/14/19 14:00 01/17/19 09:58 Bactroban 2% TP 1 applic TID [facility] Administration Ondansetron HCl 4 mg 01/13/19 22:37 Zofran IV Q8H PRN Nausea And Vomiting Oxycodone/Acetaminophen 1 tab 01/14/19 09:31 01/15/19 05:16 Percocet 5/325 PO 1 tab Q6H PRN Administration Pain, Moderate (4-6) Pantoprazole Sodium 40 mg 01/14/19 10:00 01/17/19 09:59 Protonix PO 40 mg BID [facility] Administration Potassium Chloride 20 meq 01/17/19 14:00 K-Dur PO NOW CALIXTO Sodium Chloride 10 ml 01/14/19 10:00 01/17/19 10:01 Sodium Chloride Flush Syringe 10 Ml IV 10 ml BID [facility]TO Administration Sodium Chloride 10 ml 01/13/19 22:37 01/17/19 05:27 Sodium Chloride Flush Syringe 10 Ml IV 10 ml PRN PRN Administration LINE FLUSH Nutrition/Malnutrition Assess - Dietary Evaluation Nutrition/Malnutrition Findings: Nutrition Notes Start: 01/15/19 15:22 Freq: Status: Active Protocol: Document 01/17/19 13:44 RM (Rec: 01/17/19 13:55 RM [id number]) Nutrition Notes Initial or Follow up Reassessment Current Diagnosis Coronary Artery Disease, Diabetes,Hypertension Other Pertinent Diagnosis ESRD on HD (T/T/S), R foot wound w/gangrene, Sacral PU, PVD Current Diet Cardiac/Consistent CHO Labs/Tests Reviewed Pertinent Medications Reviewed Height 5 ft 2 in Weight 41.6 kg [place] Body Weight (kg) 50.00 BMI 16.7 Subjective/Other Information Pt stated that her appetite is poor d/t pain and that prior to NPO she ate 25% of her meals. Pt stated that she has not received Nepro yet. Percent of energy/protein needs met: 36%/41% Burn Absent Trauma Absent #1 Nutrition Diagnosis Malnutrition Diagnosis Progress(for reassessment Continues documentation) Is patient on ventilator? No Is Patient Ambulatory and/or Out of Bed No REE-([facility]-confined to bed) 1073.316 Kcal/Kg value to use for calculation 33 Approximate Energy Requirements Using 1373 kcal/Kg Additional Notes Protein Needs: 51-64g (1.2-1. 5g/kg) Fluid Needs: 1 ml/kcal Nutrition Intervention Change Diet Order: Continue current Add Supplement/Snack (indicate name/kcal Nepro 1 daily /protein ) Provides kCal: 425 Provides Protein (gm) 19 Goal #1 Meet at least 75% of calorie and protein needs via PO and ONS intakes Goal #2 Wt gain/maintenance Anticipated Discharge Needs: Cardiac/Consistent CHO diet Follow-Up By: 01/19/19 Additional Comments Follow for PO and ONS intakes
[2019-01-17] MEDS ORDERED: VANCOMYCIN/NS 1 GM/250 ML 1 GM/250 ML BAG IV ONE (22:00)
[2019-01-18] MEDS: TYLENOL PO PRN (00:16)
[2019-01-18] MEDS: ZOSYN/NS 2.25 GM/50ML 2.25 GM/50 ML BAG IV SCH (07:10)
[2019-01-18] MEDS: HumaLOG SUB-Q SCH ×2 (09:39→17:53)
--- NOTE | 2019-01-18 10:39 | Progress Note ---
Assessment and Plan Cultures: 01/13/19 Blood: No growth A/P: 68 year old woman with a past medical history of Hypertension, diabetes, ESRD, CAD PVD, Right lower extremity gangrene.Admitted with: 1. Sepsis on Admission: Improved. Leukocytosis trending down. Etiology right great toe dry gangrene vs non healing foot ulcers vs ischemia. No fevers. Blood cultures in progress. Chest xary no consolidation. No other source of infection on exam. Likely Leukemoid reaction form tissue ischemia, gangrene and cellulitis. Currently being treated with Zosyn and vancomycin. 2. Right Toe Dry gangrene:. Agree with surgical recommendation for right great toe amputation. 3. Non healing right foot ulcers: 2 ulcers on the dorsum of the right foot. Superficial no drainage. 4. PVD with Right leg ischemia: s/p right leg endovasular revasuclarzation 11/2018. Arterial duplex shows stable moderate generalized atherosclerosis with a similar stenosis of the mid right SFA. 5. Sacral Wound: superficial. Continue wound care 6. Type 2 diabetes: recommend tight glycemic control 7. ESRD on HD: antibiotics renally adjusted. Neprology following. Recommendations: -Continue Vancomycin and Zosyn -Continue wound care -Agree with right great toe amputation please send for cultures and pathology. -Final antibiotic plan based on surgical outcome. [facility] M: [phone] O:[phone] Subjective Date of service: 01/18/19 Objective - Constitutional Vitals: Vital Signs Temp Pulse Resp BP Pulse Ox 98.0 F 102 H 18 150/77 100 01/18/19 07:27 01/18/19 09:18 01/18/19 09:18 01/18/19 07:27 01/18/19 07:27 Temperature -Last 24 Hours Temperature 98.0 F Temperature 98.3 F Temperature 99.1 F Temperature 99.8 F Temperature 98.0 F Temperature 97.9 F Temperature 97.9 F - Labs CBC & Chem 7: 01/17/19 10:25 01/17/19 10:25 Labs: Abnormal lab results 01/17/19 01/17/19 01/17/19 Range/Units 10:25 10:25 11:40 WBC 17.1 H (4.5-11.0) K/mm3 MCH 26 L (28-32) pg RDW 25.0 H (13.2-15.2) % Potassium 2.9 L* (3.6-5.0) mmol/L Chloride 97.7 L (98-107) mmol/L Creatinine 3.5 H (0.7-1.2) mg/dL Glucose 163 H (65-100) mg/dL POC Glucose 144 H (70-105) 01/17/19 01/17/19 01/18/19 Range/Units 16:55 21:02 07:37 WBC (4.5-11.0) K/mm3 MCH (28-32) pg RDW (13.2-15.2) % Potassium (3.6-5.0) mmol/L Chloride (98-107) mmol/L Creatinine (0.7-1.2) mg/dL Glucose (65-100) mg/dL POC Glucose 146 H 263 H 176 H (70-105)
[2019-01-18 11:08] LABS: Mean Corpuscular HGB Conc 31 % (30-34); Mean Corpuscular Volume 84 fl (79-97); Platelet Count 257 K/mm3 (140-440); Red Blood Count 4.75 M/mm3 (3.65-5.03)
[2019-01-18 11:14] LABS: Hemoglobin 12.2 gm/dl (10.1-14.3); Red Cell Distribution Width 24.3 % (13.2-15.2)
[2019-01-18 11:46] LABS: Total Cells Counted 100
[2019-01-18 11:47] LABS: Basophils % (Manual) 0 % (0.0-1.8); Eosinophils % (Manual) 0 % (0.0-4.3)
[2019-01-18 11:48] LABS: Anisocytosis 1+; Hypochromasia 1+; Ovalocytes Few; Platelet Estimate Consistent w Auto
[2019-01-18 12:01] LABS: BUN/Creatinine Ratio TNR; Blood Urea Nitrogen TNR mg/dL (7-17)
[2019-01-18 12:02] LABS: Calcium TNR mg/dL (8.4-10.2); Hemolysis Index TNR
[2019-01-18 12:59] LABS: Calcium 10.3 mg/dL (8.4-10.2)
--- NOTE | 2019-01-18 13:16 | Progress Note ---
Assessment and Plan - Patient Problems (1) Dry gangrene Current Visit: Yes Status: Acute Plan to address problem: 1) Awaiting vascular intervention by Dr. Jones. 2) Proceed with amputation after #1. Subjective Date of service: 01/18/19 Patient Reports: Positive: no new complaints Objective Vital Signs - 12hr 01/18/19 01/18/19 01/18/19 03:02 06:00 07:27 Temperature 98.3 F 98.0 F Pulse Rate 121 H 114 H 109 H Pulse Rate [ Right Radial] Respiratory 18 16 Rate Blood Pressure 158/85 150/77 O2 Sat by Pulse 100 100 Oximetry 01/18/19 09:18 Temperature Pulse Rate Pulse Rate [ 102 H Right Radial] Respiratory 18 Rate Blood Pressure O2 Sat by Pulse Oximetry - Musculoskeletal other (No change in foot exam.) - Labs 01/18/19 10:24 01/18/19 12:30 Diabetes panel 01/18/19 01/18/19 Range/Units 10:24 12:30 Sodium TNR 141 Potassium TNR 3.2 L Chloride TNR 98.9 Carbon Dioxide TNR 26 BUN TNR 22 H Creatinine TNR 4.7 H Glucose TNR 166 H Calcium TNR 10.3 H Calcium panel 01/18/19 01/18/19 Range/Units 10:24 12:30 Calcium TNR 10.3 H Pituitary panel 01/18/19 01/18/19 Range/Units 10:24 12:30 Sodium TNR 141 Potassium TNR 3.2 L Chloride TNR 98.9 Carbon Dioxide TNR 26 BUN TNR 22 H Creatinine TNR 4.7 H Glucose TNR 166 H Calcium TNR 10.3 H Adrenal panel 01/18/19 01/18/19 Range/Units 10:24 12:30 Sodium TNR 141 Potassium TNR 3.2 L Chloride TNR 98.9 Carbon Dioxide TNR 26 BUN TNR 22 H Creatinine TNR 4.7 H Glucose TNR 166 H Calcium TNR 10.3 H
[2019-01-18] MEDS ORDERED: NACL 0.9% 1000 ML 0 ML ONE (13:22)
[2019-01-18] MEDS ORDERED: HEPARIN/NS 5000 UNIT/500ML(CATH LAB) 500 ML IR ONE ×2 (13:22→15:38)
[2019-01-18] MEDS ORDERED: HEPARIN 10,000 UNITS/10 ML ONE ×2 (13:23→14:14)
[2019-01-18] MEDS ORDERED: VERSED ONE (13:43)
[2019-01-18] MEDS ORDERED: DIPRIVAN 10 MG/ML IV ONE ×3 (13:46→14:10)
[2019-01-18] MEDS ORDERED: NACL 0.9% 1000 ML 1,000 ML ONE ×2 (14:14→16:00)
[2019-01-18] MEDS ORDERED: XYLOCAINE 2% INFILTRATI ONE (14:14)
[2019-01-18] MEDS: XYLOCAINE 2% INFILTRATI ONE ×2 (14:37→14:52)
[2019-01-18] MEDS: HEPARIN/NS 5000 UNIT/500ML(CATH LAB) 1,000 ML IR ONE ×2 (14:37→14:50)
[2019-01-18] MEDS ORDERED: TRIDIL DRIP 50MG/250ML 50 MG/250 ML BOTTLE ONE (16:00)
[2019-01-18] MEDS ORDERED: CALAN ONE (16:00)
--- NOTE | 2019-01-18 16:09 | Event Note ---
Date: 01/18/19 Patient not seen today, in surgery. Will see patient in the morning .
--- NOTE | 2019-01-18 16:56 | Post Operative Note ---
Date of procedure: 01/18/19 Pre-op diagnosis: ESRD with CLI of the RLE Post-op diagnosis: same Procedure: 1. Ultrasound guided access of the left common femoral artery 2. Angiography of the left lower extremity (clinical change) 3. Selection of the abdominal aorta with angiography (clinical change) 4. Selection of the right lower extremity of the superficial femoral artery, popliteal artery, and posterior tibial artery 5. Stenting of the right mid superficial femoral artery with a 6 mm x 27 mm VISIPRO stent 6. Angioplasty of the right popliteal artery with a 5 mm x 150 mm iNPACT DCB and right distal and mid superficial femoral artery with a 6 mm x 150 mm iNPACT DCB 7. Atherectomy of the right posterior tibial artery and tibioperoneal trunk with a 1.25 CSI solid atherectomy device 8. Angioplasty of the right posterior tibial artery with a 2-2.5 mm x 220 mm angioplasty balloon 9. Angioplasty of the tibioperoneal trunk with a 3.5 mm x 40 mm angioplasty balloon and a 4 mm x 40 mm iNPACT DCB 10. Closure of the left common femoral artery with a 6 Fr proglide Anesthesia: local (w/ conscious sedation) Surgeon: CHERY BURGER Estimated blood loss: minimal Condition: stable Disposition: floor
--- NOTE | 2019-01-18 17:06 | Operative Report ---
Operative Report Operative Report: EXAM: 1. Ultrasound guided access of the left common femoral artery 2. Angiography of the left lower extremity (clinical change) 3. Selection of the abdominal aorta with angiography (clinical change) 4. Selection of the right lower extremity of the superficial femoral artery, popliteal artery, and posterior tibial artery 5. Intravascular ultrasound of the right superficial femoral artery and popliteal artery 6. Stenting of the right mid superficial femoral artery with a 6 mm x 27 mm VISIPRO stent 7. Angioplasty of the right popliteal artery with a 5 mm x 150 mm iNPACT DCB and right distal and mid superficial femoral artery with a 6 mm x 150 mm iNPACT DCB 8. Atherectomy of the right posterior tibial artery and tibioperoneal trunk with a 1.25 CSI solid atherectomy device 9. Angioplasty of the right posterior tibial artery with a 2-2.5 mm x 220 mm angioplasty balloon 10. Angioplasty of the tibioperoneal trunk with a 3.5 mm x 40 mm angioplasty balloon and a 4 mm x 40 mm iNPACT DCB 11. Closure of the left common femoral artery with a 6 Fr proglide [employer] SETTER: CHERY BURGER MD DATE: 01/18/19 CONTRAST: Please see laborer laboratory report for full details INDICATION: CLI OF THE RIGHT LOWER EXTREMITY WITH GANGRENE. DEVICES: 6 mm x 27 mm VISIPRO stent 4 mm x 40 mm iNPACT DCB 5 mm x 150 mm iNPACT DCB 6 mm x 150 mm iNPACT DCB 1.25 solid CSI atherectomy device 2-2.5 mm x 220 mm angioplasty balloon 3.5 mm x 40 mm angioplasty balloon 0.014 inch IVUS catheter TECHNIQUE: The risks, benefits, and alternatives were discussed with the patient and her family; written verbal consent was obtained over the phone and confirmed with nursing. The patient was brought into the angiography suite and sedation was provided by anesthesia with MAC. The groins were prepped and draped in a sterile fashion. Ultrasound was used to evaluate the left common femoral artery which was patent. Under direct ultrasound guidance, the left common femoral artery was accessed with a 21-gauge micropuncture needle. 0.018 inch wire was passed into the aorta. Needle was exchanged for transitional dilator. Transitional dilator was exchanged over 0.035 inch wire for a 5 [place] sheath. Digital subtraction angiography was performed demonstrated patency of the left external iliac artery, common femoral artery, proximal superficial femoral artery, and profundofemoral artery. The abdominal aorta was selected with the flush catheter and digital subtraction angiography was performed demonstrating patency of the abdominal aorta, bilateral common iliac arteries, bilateral internal iliac arteries, and bilateral external iliac arteries. The right external iliac artery was selected, the right superficial femoral artery was selected, and the right popliteal artery was selected and digital subtraction angiography was performed at multiple stations. Digital subtraction angiography demonstrated patency of the right common femoral artery, profunda femoral artery, and proximal superficial femoral artery. There was a stent in the proximal to mid superficial femoral artery which was incompletely expanded. Previously, this had been treated with noncompliant (conquest) balloon, and shockwave litho-plasty. The distal superficial femoral artery had intermittent 30 to 40% narrowings. The popliteal artery above the knee had 30 to 40% narrowings. The popliteal artery below the knee had 40% narrowings. The anterior tibial artery was occluded after the first 2 cm and there is no significant reconstitution in the foot. The dorsalis pedis sort of reconstituted from diminutive vessels from the peroneal and posterior tibial artery but this reconstitution was less than 0.5 mm in size. The peroneal artery was the dominant flow to the foot and communicated through the posterior communicating arteries to the posterior tibial artery and plantar arteries which were small measuring 1 to 2 mm in size. The posterior tibial artery was occluded soon after the ostium to the ankle. The tibioperoneal trunk was 60% narrowed focally. The patient was heparinized. Sheath was exchanged for 6 [place] 45 cm [place] destination positioned in the right common femoral artery. Intravascular ultrasound was then used to evaluate the popliteal and superficial femoral artery as well as the incomplete stent expansion. The popliteal artery demonstrated 50 to 60% narrowings and the superficial femoral artery had multifocal 30% narrowings. The area of incomplete stent expansion resulted in a 80% stenotic region. In order to treat the area of incomplete stent expansion, all conventional therapies including conquest angioplasty and litho-plasty had been exhausted. I decided to place a short balloon expandable stent. This was placed with IVUS and then expanded with a conquest 6 mm angioplasty balloon. Digital subtracted angiography demonstrated minimal residual narrowing. 5 mm x 150 mm iNPACT balloon was then used to perform angioplasty of the popliteal artery and distal superficial femoral artery. 6 mm x 150 mm iNPACT balloon was then used to perform angioplasty of the distal to mid superficial femoral artery including the recently stented area. Digital subtraction angiography demonstrated less than 10% residual narrowing of the treated areas in the superficial femoral artery and popliteal artery. Wire and catheter were then used to cannulate the posterior tibial artery and a Viper wire was passed into the common plantar artery. Atherectomy was then performed of the tibioperoneal trunk, and posterior tibial artery. 2 to 2.5 mm angioplasty balloon was used to perform angioplasty of the posterior tibial artery from the common plantar artery to the posterior tibial artery ostium. 3.5 mm angioplasty balloon was then used to perform angioplasty of the tibioperoneal trunk. 4 mm x 40 mm iNPACT balloon was then used to perform angioplasty of the tibioperoneal trunk. Digital subtraction angiography was performed demonstrating two-vessel runoff of the peroneal artery and the posterior tibial artery to the foot. The tibioperoneal trunk was now patent. At this point, all wires, catheters, and sheaths retracted to the left external iliac artery. Site was closed with a 6 [place] pro-glide. Pressure dressing applied. Patient tolerated the procedure well. No immediate postprocedural complication. Impression: 1. Successful atherectomy and angioplasty of the right tibioperoneal trunk and posterior tibial artery. 2. Successful stenting and angioplasty of the right superficial femoral artery.
--- NOTE | 2019-01-18 17:24 | Anesthesia Day of Surgery ---
Anesthesia Day of Surgery - Day of Surgery Patient Examined: Yes Patient H&P Reviewed: Yes Patient is NPO: Yes Beta Blockers: No
--- NOTE | 2019-01-18 17:25 | Anesthesia Consultation ---
Anesthesia Consult and Med Hx Date of service: 01/18/19 - Airway Anesthetic Teeth Evaluation: Good ROM Head & Neck: Adequate Mental/Hyoid Distance: Adequate Mallampati Class: Class III Intubation Access Assessment: Good - Pulmonary Exam CTA: Yes - Cardiac Exam Cardiac Exam: No Murmur - Pre-Operative Health Status ASA Pre-Surgery Classification: ASA4 Proposed Anesthetic Plan: MAC - Pulmonary Hx Smoking: No Hx Asthma: No SOB: Yes (1 pillow orthopnea for many years) COPD: No Hx Pneumonia: No Hx Sleep Apnea: No - Cardiovascular System Hx Hypertension: Yes Hx Coronary Artery Disease: No Hx Heart Attack/AMI: No Hx Angina: No Hx Percutaneous Transluminal Coronary Angioplasty (PTCA): No Hx Pacemaker: No Hx Internal Defibrillator: No Hx Valvular Heart Disease: Yes (moderate /MS on 07/2017 TTE) Hx Heart Murmur: No Hx Peripheral Vascular Disease: Yes - Central Nervous System Hx Seizures: No CVA: No Hx Psychiatric Problems: No - Gastrointestinal Hx Ulcer: Yes (PUD/ GI bleed 05/2014) Hx Gastroesophageal Reflux Disease: Yes (Mild) - Endocrine Hx Renal Disease: Yes (HD T,TH,Sat) Hx End Stage Renal Disease: Yes (last HD 11/25/18) Hx Liver Disease: No Hx Insulin Dependent Diabetes: Yes Hx Thyroid Disease: No Hx Hypothyroidism: No Hx Hyperthyroidism: No - Hematic Hx Anemia: Yes Hx Sickle Cell Disease: No - Other Systems Hx Alcohol Use: No Hx Cancer: No Hx Obesity: No
--- NOTE | 2019-01-18 17:51 | Progress Note ---
Assessment and Plan - Patient Problems (1) ESRD (end stage renal disease) on dialysis Current Visit: Yes Status: Chronic Plan to address problem: End-stage renal disease on dialysis Dialysis access left arm aVF Continue dialysis Tuesday schedule (2) Diabetes mellitus Current Visit: No Status: Chronic Qualifiers: Diabetes mellitus type: type 2 Plan to address problem: Diabetes mellitus Continue medications monitor fingersticks (3) Hypertension Current Visit: No Status: Chronic Qualifiers: Hypertension type: essential hypertension Qualified Code(s): I10 - Essential (primary) hypertension Plan to address problem: Hypertension controlled continue medications (4) Peripheral vascular disease Current Visit: Yes Status: Acute Plan to address problem: Peripheral vascular disease with dry gangrene vascular surgery following (5) Hypokalemia Current Visit: Yes Status: Acute Plan to address problem: Hypokalemia post dialysis Use 3K bath for next treatment . Subjective Interval history: 68-year-old lady with hypertension, end-stage renal disease, CAD, peripheral vascular disease, gangrene of the ankle Patient seen today Denies any orthopnea or PND. gangrene noted in right foot awaiting revascularization. Left arm with swelling and AVF. Objective - Vital Signs Vital signs: Vital Signs - 12hr 01/18/19 01/18/19 01/18/19 06:00 07:27 09:18 Temperature 98.0 F Pulse Rate 114 H 109 H Pulse Rate [ 102 H Right Radial] Respiratory 16 18 Rate Blood Pressure 150/77 O2 Sat by Pulse 100 Oximetry 01/18/19 01/18/19 01/18/19 17:15 17:30 17:45 Temperature 99 F Pulse Rate 96 H 96 H 97 H Pulse Rate [ Right Radial] Respiratory 12 13 12 Rate Blood Pressure 157/83 161/87 163/93 O2 Sat by Pulse 99 100 100 Oximetry - General Appearance General appearance: well-developed, well-nourished EENT: ATNC, PERRL, mucous membranes moist Neck: no JVD Respiratory: Present: Clear to Ascultation Cardiology: regular, S1S2 Gastrointestinal: normal, normoactive bowel sounds Integumentary: no rash Neurologic: alert and oriented x3, CN 3-12 intact Musculoskeletal: other (right first toe gangrene. ) Psychiatric: mood/affect appropriate - Lab 01/18/19 10:24 01/18/19 12:30 Most recent lab results Calcium 10.3 mg/dL (8.4-10.2) H 01/18/19 12:30 Magnesium 1.90 mg/dL (1.7-2.3) 01/13/19 17:54 - Imaging Chest x-ray: image reviewed (I reviewed CXR without overt edema. ) Medications & Allergies - Medications Allergies/Adverse Reactions: Allergies erythromycin base [Erythromycin Base] Allergy (Verified 10/26/18 18:04) Rash PATIENT ASK ME TO REMOVEDMED ON ALLERGY LIST. Home Medications: Home Medications Medication Instructions Recorded Confirmed Last Taken Type Ferric Citrate (Nf) [Auryxia] 630 mg PO TIDWM 09/05/18 12/28/18 11/18/18 History Pantoprazole [Protonix TAB] 40 mg PO BID #60 tablet 10/03/18 12/28/18 10/16/18 20:00 Rx ISOSORBIDE MONOnitrate [Imdur ER] 30 mg PO QDAY #30 tablet 10/04/18 12/28/18 Unknown Rx Lisinopril [Zestril TAB] 5 mg PO DAILY #30 tablet 10/04/18 12/28/18 Unknown Rx cloNIDine [Catapres] 0.1 mg PO TID PRN 10/17/18 12/28/18 Unknown History Mupirocin [Bactroban 2% OINT] 1 applic TP TID #1 tube 10/29/18 12/28/18 Unknown Rx Clopidogrel [Plavix] 75 mg PO QDAY #30 tablet 11/28/18 12/28/18 Unknown Rx Clopidogrel [Plavix] 75 mg PO QDAY tablet 11/29/18 12/28/18 Unknown Rx oxyCODONE /ACETAMINOPHEN [Percocet 1 tab PO Q6H PRN #10 tablet 11/29/18 12/28/18 Unknown Rx 5/325 mg] Active Medications: Generic Name Dose Route Start Last Admin Trade Name Freq PRN Reason Stop Dose Admin Acetaminophen 650 mg 01/13/19 22:37 01/18/19 00:16 Tylenol PO 650 mg Q4H PRN Administration Pain MILD(1-3)/Fever >100.5/PEREZ Aspirin 81 mg 01/18/19 18:00 Halfprin Ec PO QDAY CALIXTO Clonidine HCl 0.1 mg 01/14/19 09:31 Catapres PO TID PRN Blood Pressure Clopidogrel Bisulfate 75 mg 01/14/19 10:00 01/17/19 10:00 Plavix PO 75 mg QDAY CALIXTO Administration Dextrose 50 ml 01/13/19 22:40 01/14/19 20:59 D50w (25gm) Syringe IV 50 ml PRN PRN Administration Hypoglycemia Enoxaparin Sodium 30 mg 01/14/19 10:00 01/17/19 09:58 Lovenox SUB-Q 30 mg QDAY [place] Administration Piperacillin Sod/Tazobactam Sod 2.25 gm in 50 mls @ 100 mls/hr 01/13/19 23:00 01/18/19 07:10 Zosyn/Ns 2.25 Gm/50ml IV 100 mls/hr Q8HR [place] Administration Protocol Insulin Human Lispro 0 unit 01/14/19 07:30 01/18/19 09:39 Humalog SUB-Q Not Given ACHS [facility] Protocol Isosorbide Mononitrate 30 mg 01/14/19 10:00 01/17/19 09:59 Imdur PO 30 mg DAILY [place] Administration Lisinopril 5 mg 01/14/19 10:00 01/17/19 10:00 Zestril PO 5 mg DAILY [place] Administration Miscellaneous Medication 630 mg 01/14/19 12:00 Ferric Citrate PO TIDWM [facility] Mupirocin 1 applic 01/14/19 14:00 01/17/19 21:45 Bactroban 2% TP 1 applic TID [facility] Administration Ondansetron HCl 4 mg 01/13/19 22:37 Zofran IV Q8H PRN Nausea And Vomiting Oxycodone/Acetaminophen 1 tab 01/14/19 09:31 01/15/19 05:16 Percocet 5/325 PO 1 tab Q6H PRN Administration Pain, Moderate (4-6) Pantoprazole Sodium 40 mg 01/14/19 10:00 01/17/19 22:44 Protonix PO 40 mg BID [place] Administration Sodium Chloride 10 ml 01/14/19 10:00 01/17/19 22:44 Sodium Chloride Flush Syringe 10 Ml IV 10 ml BID [facility] Administration Sodium Chloride 10 ml 01/13/19 22:37 01/17/19 05:27 Sodium Chloride Flush Syringe 10 Ml IV 10 ml PRN PRN Administration LINE FLUSH
--- NOTE | 2019-01-18 19:30 | Progress Note ---
Assessment and Plan Assessment and plan: Patient is 68 year old woman with a history of Hypertension, DM type 2, ESRD on HD, CAD, PVD and right lower extremity with gangrene of the ankle status post recent re-vascularization,comes to [facility] ED because she was severely tachycardiac at Hemodialysis center. In the emergency room she was found to have gangrene of the right foot, started on vancomycin. * Previous angiogram result Impression: 1) Aortogram and right lower extremity angiography demonstrating multifocal 80-90% stenosis within the proximal and mid SFA with complete occlusion of the mid to distal SFA and reconstitution of the popliteal artery and distal SFA through collaterals. There is single vessel runoff to the foot throughout peroneal artery. 2) Attempted revascularization from both an antegrade and pedal approach as described without success. 3) The patient will need to be rescheduled for re- vascularization procedure on her right leg with anesthesia from both an antegrade and popliteal artery approach. Acute Right leg limb ischemia: Continue palvix, Vascular consulted. ?Ampuation. Woundcare consulted Dry gangrene: Per vascular Patient was seen in the office on 01/12/19 with plan for revascularization on 01/18/19. Patient had dry gangrene at the time, not wet gangrene. Patient is now in the hospital. If patient's clinical status improves, plan will be for further revascularization on 01/18/19 Type 2 SC: Conservative management Leukocytosis- No evidence of sepsis. Continue abx, consult ID Diabetic foot nonhealing ulcer: Vascular re-evaluation, ?need for amputation- surgery consulted Decubitus ulcer at least stage 2/3 poa: consulted Wound care, HTN: continue antihypertensives ESRD on Hemodialysis TTS: Nephrology is following, monitor bmp closely, renal diet Diabetes Mellitus type 2: continue insulin and keep blood glucose less than 160 Anemia of chronic disease: monitored cbc closely and was stable Severe Protien calorie Malnutrition, poa: Marketing Producer consulted PAD- Prox Superficial Femoral Artery associated with critical limb ischemia, see above: Vascular Surgeon is managing, s/p Re-vascularization procedure of her right leg 11/27/18 with good result. d/w Dr. Jones, Started on Plavix Chronic edema of left upper extremity: The patient has had multiple workup with no find is a student reason why. This also houses her AV graft. Poor prognosis Disposition: continue inpatient care, Re-vascularization for . History Interval history: Patient was seen and examined. Follow-up on current diagnosis of PAD. No overnight events reported to me. Patient denies any chest pain, shortness breath, nausea/vomiting or severe headaches. Imaging, nursing note, chart, labs and old chart reviewed. Discussed with patient. Hospitalist Physical - Physical exam Narrative exam: Gen: cachetic, chronic ill appearing, BMI 16.8, NAD, Awake, Alert, Orientated x 2 HEENT: NCAT, EOMI, PERRL, OP Clear Neck: supple, no adenopathy, no thyromegaly, no JVD CVS/Heart: RRR, normal S1S2, pulses present bilaterally Chest/Lungs: CTA B, Symmetrical chest expansion, good air entry bilaterally GI/Abdomen: soft, NTND, good bowel sounds, no guarding or rebound /Bladder: no suprapubic tenderness, no CVA or paraspinal tenderness Extermity/Skin: right great toe necrotic, stage 2/3 sacral pressure ulcer, left heel DTI MSK: FROM x 4 Neuro: CN 2-12 grossly intact, no new focal deficits Psych: calm - Constitutional Vitals: Temp Pulse Resp BP Pulse Ox 99 F 97 H 12 162/87 98 01/18/19 17:15 01/18/19 18:15 01/18/19 18:15 01/18/19 18:15 01/18/19 18:15 Results - Labs CBC & Chem 7: 01/18/19 10:24 01/18/19 12:30 Labs: Laboratory Last Values WBC 19.9 K/mm3 (4.5-11.0) H 01/18/19 10:24 RBC 4.75 M/mm3 (3.65-5.03) 01/18/19 10:24 Hgb 12.2 gm/dl (10.1-14.3) 01/18/19 10:24 Hct 40.0 % (30.3-42.9) 01/18/19 10:24 MCV 84 fl (79-97) 01/18/19 10:24 MCH 26 pg (28-32) L 01/18/19 10:24 MCHC 31 % (30-34) 01/18/19 10:24 RDW 24.3 % (13.2-15.2) H 01/18/19 10:24 Plt Count 257 K/mm3 (140-440) 01/18/19 10:24 Lymph % (Auto) 2.3 % (13.4-35.0) L 01/17/19 00:42 [place] % (Auto) 6.4 % (0.0-7.3) 01/17/19 00:42 Eos % (Auto) 0.1 % (0.0-4.3) 01/17/19 00:42 Baso % (Auto) 1.2 % (0.0-1.8) 01/17/19 00:42 Lymph # 0.4 K/mm3 (1.2-5.4) L 01/17/19 00:42 [place] # 1.1 K/mm3 (0.0-0.8) H 01/17/19 00:42 Eos # 0.0 K/mm3 (0.0-0.4) 01/17/19 00:42 Baso # 0.2 K/mm3 (0.0-0.1) H 01/17/19 00:42 Add Manual Diff Complete 01/18/19 10:24 Total Counted 100 01/18/19 10:24 Seg Neutrophils % Water Quality Technician 01/18/19 10:24 Seg Neuts % (Manual) 92.0 % (40.0-70.0) H 01/18/19 10:24 0 % 01/18/19 10:24 5.0 % (13.4-35.0) L 01/18/19 10:24 Reactive Lymphs % (Man) 0 % 01/18/19 10:24 3.0 % (0.0-7.3) 01/18/19 10:24 0 % (0.0-4.3) 01/18/19 10:24 0 % (0.0-1.8) 01/18/19 10:24 0 % 01/18/19 10:24 0 % 01/18/19 10:24 0 % 01/18/19 10:24 0 % 01/18/19 10:24 Nucleated RBC % Not Reportable 01/18/19 10:24 Seg Neutrophils # 15.2 K/mm3 (1.8-7.7) H 01/17/19 00:42 Seg Neutrophils # Man 18.3 K/mm3 (1.8-7.7) H 01/18/19 10:24 Band Neutrophils # 0.0 K/mm3 01/18/19 10:24 1.0 K/mm3 (1.2-5.4) L 01/18/19 10:24 Abs React Lymphs (Man) 0.0 K/mm3 01/18/19 10:24 0.6 K/mm3 (0.0-0.8) 01/18/19 10:24 0.0 K/mm3 (0.0-0.4) 01/18/19 10:24 0.0 K/mm3 (0.0-0.1) 01/18/19 10:24 0.0 K/mm3 01/18/19 10:24 0.0 K/mm3 01/18/19 10:24 0.0 K/mm3 01/18/19 10:24 Blast Cells # 0.0 K/mm3 01/18/19 10:24 WBC Morphology Not Reportable 01/18/19 10:24 Hypersegmented Neuts Not Reportable 01/18/19 10:24 Hyposegmented Neuts Not Reportable 01/18/19 10:24 Hypogranular Neuts Not Reportable 01/18/19 10:24 Not Reportable 01/18/19 10:24 Not Reportable 01/18/19 10:24 Not Reportable 01/18/19 10:24 Not Reportable 01/18/19 10:24 Not Reportable 01/18/19 10:24 Not Reportable 01/18/19 10:24 Consistent w auto 01/18/19 10:24 Not Reportable 01/18/19 10:24 Plt Clumps, EDTA Not Reportable 01/18/19 10:24 Not Reportable 01/18/19 10:24 Not Reportable 01/18/19 10:24 Not Reportable 01/18/19 10:24 Plt Morphology Comment Not Reportable 01/18/19 10:24 RBC Morphology Not Reportable 01/18/19 10:24 Dimorphic RBCs Not Reportable 01/18/19 10:24 Not Reportable 01/18/19 10:24 1+ 01/18/19 10:24 Not Reportable 01/18/19 10:24 1+ 01/18/19 10:24 Not Reportable 01/18/19 10:24 Not Reportable 01/18/19 10:24 Not Reportable 01/18/19 10:24 Not Reportable 01/18/19 10:24 Not Reportable 01/18/19 10:24 Not Reportable 01/18/19 10:24 Not Reportable 01/18/19 10:24 Few 01/18/19 10:24 Not Reportable 01/18/19 10:24 Not Reportable 01/18/19 10:24 Not Reportable 01/18/19 10:24 Not Reportable 01/18/19 10:24 Not Reportable 01/18/19 10:24 Not Reportable 01/18/19 10:24 Not Reportable 01/18/19 10:24 Acanthocytes (Spur) Not Reportable 01/18/19 10:24 Rouleaux Not Reportable 01/18/19 10:24 Not Reportable 01/18/19 10:24 Not Reportable 01/18/19 10:24 Not Reportable 01/18/19 10:24 Not Reportable 01/18/19 10:24 Hem Pathologist Commnt No 01/18/19 10:24 PT 15.5 Sec. (12.2-14.9) H 01/13/19 17:42 INR 1.26 (0.87-1.13) H 01/13/19 17:42 APTT 50.0 Sec. (24.2-36.6) H 01/13/19 17:42 Sodium 141 mmol/L (137-145) 01/18/19 12:30 Potassium 3.2 mmol/L (3.6-5.0) L 01/18/19 12:30 Chloride 98.9 mmol/L (98-107) 01/18/19 12:30 Carbon Dioxide 26 mmol/L (22-30) 01/18/19 12:30 19 mmol/L 01/18/19 12:30 BUN 22 mg/dL (7-17) H 01/18/19 12:30 4.7 mg/dL (0.7-1.2) H 01/18/19 12:30 Estimated GFR 11 ml/min 01/18/19 12:30 5 % 01/18/19 12:30 Glucose 166 mg/dL (65-100) H 01/18/19 12:30 POC Glucose 115 (70-105) H 01/18/19 18:00 Lactic Acid 0.90 mmol/L (0.7-2.0) 01/13/19 17:54 Calcium 10.3 mg/dL (8.4-10.2) H 01/18/19 12:30 Magnesium 1.90 mg/dL (1.7-2.3) 01/13/19 17:54 0.50 mg/dL (0.1-1.2) 01/13/19 17:42 < 0.2 mg/dL (0-0.2) 01/13/19 17:42 0.3 mg/dL 01/13/19 17:42 AST 10 units/L (5-40) 01/13/19 17:42 ALT < 5 units/L (7-56) L 01/13/19 17:42 123 units/L (35-129) 01/13/19 17:42 73 units/L (30-135) 01/14/19 07:21 CK-MB (CK-2) 4.4 ng/mL (0.0-4.0) H 01/14/19 07:21 CK-MB (CK-2) Rel Index 6.0 (0-4) H 01/14/19 07:21 0.335 ng/mL (0.00-0.029) H* D 01/14/19 07:21 NT-Pro-B Natriuret Pep 12476 pg/mL (0-900) H 01/13/19 17:42 6.8 g/dL (6.3-8.2) 01/13/19 17:42 2.9 g/dL (3.9-5) L 01/13/19 17:42 0.7 % 01/13/19 17:42 Triglycerides 218 mg/dL (2-149) H 01/13/19 17:54 Cholesterol 130 mg/dL (50-199) 01/13/19 17:54 50 mg/dL (50-130) 01/13/19 17:54 37 mg/dL (40-59) L 01/13/19 17:54 3.51 % 01/13/19 17:54 TSH 3.000 mlU/mL (0.270-4.200) 01/13/19 17:42 Random Vancomycin 10.7 ug/mL (0-40.0) 01/17/19 10:25 Active Medications - Current Medications Current Medications: Generic Name Dose Route Start Last Admin Trade Name Freq PRN Reason Stop Dose Admin Acetaminophen 650 mg 01/13/19 22:37 01/18/19 00:16 Tylenol PO 650 mg Q4H PRN Administration Pain MILD(1-3)/Fever >100.5/PEREZ Aspirin 81 mg 01/18/19 18:00 Halfprin Ec PO QDAY CALIXTO Clonidine HCl 0.1 mg 01/14/19 09:31 Catapres PO TID PRN Blood Pressure Clopidogrel Bisulfate 75 mg 01/14/19 10:00 01/17/19 10:00 Plavix PO 75 mg QDAY CALIXTO Administration Dextrose 50 ml 01/13/19 22:40 01/14/19 20:59 D50w (25gm) Syringe IV 50 ml PRN PRN Administration Hypoglycemia Enoxaparin Sodium 30 mg 01/14/19 10:00 01/17/19 09:58 Lovenox SUB-Q 30 mg QDAY CALIXTO Administration Piperacillin Sod/Tazobactam Sod 2.25 gm in 50 mls @ 100 mls/hr 01/13/19 23:00 01/18/19 07:10 Zosyn/Ns 2.25 Gm/50ml IV 100 mls/hr Q8HR CALIXTO Administration Protocol Insulin Human Lispro 0 unit 01/14/19 07:30 01/18/19 17:53 Humalog SUB-Q Not Given ACHS [facility] Protocol Isosorbide Mononitrate 30 mg 01/14/19 10:00 01/17/19 09:59 Imdur PO 30 mg DAILY CALIXTO Administration Lisinopril 5 mg 01/14/19 10:00 01/17/19 10:00 Zestril PO 5 mg DAILY CALIXTO Administration Mupirocin 1 applic 01/14/19 14:00 01/17/19 21:45 Bactroban 2% TP 1 applic TID CALIXTO Administration Ondansetron HCl 4 mg 01/13/19 22:37 Zofran IV Q8H PRN Nausea And Vomiting Oxycodone/Acetaminophen 1 tab 01/14/19 09:31 01/15/19 05:16 Percocet 5/325 PO 1 tab Q6H PRN Administration Pain, Moderate (4-6) Pantoprazole Sodium 40 mg 01/14/19 10:00 01/17/19 22:44 Protonix PO 40 mg BID CALIXTO Administration Sodium Chloride 10 ml 01/14/19 10:00 01/17/19 22:44 Sodium Chloride Flush Syringe 10 Ml IV 10 ml BID CALIXTO Administration Sodium Chloride 10 ml 01/13/19 22:37 01/17/19 05:27 Sodium Chloride Flush Syringe 10 Ml IV 10 ml PRN PRN Administration LINE FLUSH Nutrition/Malnutrition Assess - Dietary Evaluation Nutrition/Malnutrition Findings: Nutrition Notes Start: 01/15/19 15:22 Freq: Status: Active Protocol: Document 01/17/19 13:44 RM (Rec: 01/17/19 13:55 RM [id number]) Nutrition Notes Initial or Follow up Reassessment Current Diagnosis Coronary Artery Disease, Diabetes,Hypertension Other Pertinent Diagnosis ESRD on HD (T/T/S), R foot wound w/gangrene, Sacral PU, PVD Current Diet Cardiac/Consistent CHO Labs/Tests Reviewed Pertinent Medications Reviewed Height 5 ft 2 in Weight 41.6 kg [place] Body Weight (kg) 50.00 BMI 16.7 Subjective/Other Information Per nurse pt has been NPO this morning d/t swallow evaluation. Pt stated that her appetite is poor d/t pain and that she eats 25% of her meals. Pt stated that she has not received Nepro yet. Percent of energy/protein needs met: 36%/41% Burn Absent Trauma Absent #1 Nutrition Diagnosis Malnutrition Diagnosis Progress(for reassessment Continues documentation) Is patient on ventilator? No Is Patient Ambulatory and/or Out of Bed No REE-([facility]-confined to bed) 1073.316 Kcal/Kg value to use for calculation 33 Approximate Energy Requirements Using 1373 kcal/Kg Additional Notes Protein Needs: 51-64g (1.2-1. 5g/kg) Fluid Needs: 1 ml/kcal Nutrition Intervention Change Diet Order: Continue current Add Supplement/Snack (indicate name/kcal Nepro 1 daily /protein ) Provides kCal: 425 Provides Protein (gm) 19 Goal #1 Meet at least 75% of calorie and protein needs via PO and ONS intakes Goal #2 Wt gain/maintenance Anticipated Discharge Needs: Cardiac/Consistent CHO diet Follow-Up By: 01/19/19 Additional Comments Follow for PO and ONS intakes
[2019-01-18] MEDS ORDERED: NACL 0.9 (PRIMING MACHINE ONLY DIALYSIS) MC ONE (23:37)
[2019-01-19] MEDS: HumaLOG SUB-Q SCH ×7 (00:34→21:01)
[2019-01-19] MEDS: BACTROBAN 2% TP SCH ×5 (00:34→21:02)
[2019-01-19] MEDS: PLAVIX PO SCH ×2 (00:35→09:18)
[2019-01-19] MEDS: IMDUR PO SCH ×2 (00:35→09:17)
[2019-01-19] MEDS: SODIUM CHLORIDE FLUSH SYRINGE 10 ML IV SCH ×3 (00:35→21:03)
[2019-01-19] MEDS: PROTONIX PO SCH ×3 (00:35→21:01)
[2019-01-19] MEDS: LOVENOX SUB-Q SCH ×2 (00:35→09:16)
[2019-01-19] MEDS: ZOSYN/NS 2.25 GM/50ML 2.25 GM/50 ML BAG IV SCH ×6 (00:36→21:45)
[2019-01-19] MEDS: ZESTRIL PO SCH ×2 (00:36→09:18)
[2019-01-19] MEDS: HALFPRIN EC PO SCH ×2 (00:37→09:18)
[2019-01-19] MEDS: FERRIC CITRATE 630 MG PO SCH (00:37)
[2019-01-19] MEDS: PERCOCET 5/325 PO PRN (05:04)
--- NOTE | 2019-01-19 09:26 | Progress Note ---
Assessment and Plan Cultures: 01/13/19 Blood: No growth A/P: 68 year old woman with a past medical history of Hypertension, diabetes, ESRD, CAD PVD, Right lower extremity gangrene.Admitted with: 1. Sepsis on Admission: Improved. Leukocytosis trending down. Etiology right great toe dry gangrene vs non healing foot ulcers vs ischemia. No fevers. Blood cultures in progress. Chest xary no consolidation. No other source of infection on exam. Likely Leukemoid reaction form tissue ischemia, gangrene and cellulitis. Currently being treated with Zosyn and vancomycin. 2. Right Toe Dry gangrene:. Agree with surgical recommendation for right great toe amputation. Dr. Aden following, 3. Non healing right foot ulcers: 2 ulcers on the dorsum of the right foot. Superficial no drainage. 4. PVD with Right leg ischemia: s/p right leg endovasular revasuclarzation 11/2018. Arterial duplex shows stable moderate generalized atherosclerosis with a similar stenosis of the mid right SFA. s/p re-vascularization procedure 01/18/19 . 5. Sacral Wound: superficial. Continue wound care 6. Type 2 diabetes: recommend tight glycemic control 7. ESRD on HD: antibiotics renally adjusted. Neprology following. Recommendations: -Continue Vancomycin and Zosyn -Continue wound care -Agree with right great toe amputation please send for cultures and pathology. -Final antibiotic plan based on surgical outcome. Subjective Date of service: 01/19/19 Interval history: Patient seen and examined. Reports no acute distress or generalized weakness. No fevers. Objective - Exam Narrative Exam: Constitutional: Alert.. Awake. No acute distress Head, Ears, Nose: Normocephalic, atraumatic. External ears, nose normal Eyes: Conjunctivae/corneas clear. No icterus. No ptosis. Neck: Supple, no meningeal signs Oral: dentition poor. No thrush. oral mucosa moist Cardiovascular: S1, S2 normal. Respiratory: Good air entry, clear to auscultation bilaterally GI: Soft, non-tender; bowel sounds normal. No peritoneal signs Musculoskeletal: No pedal edema, no cyanosis. Skin: bilateral lower extremity with right toe dry gangrene. Bilateral lower extremity with dystrophic toenails. 2 superficial ulcerations on right dorsum. Right lower extremity tenderness. Hem/Lymphatic: No palpable cervical or supraclavicular nodes. No lymphangitis Psych: Mood ok. Neurological: Awake, alert, oriented. - Constitutional Vitals: Vital Signs Temp Pulse Resp BP Pulse Ox 98.6 F 98 H 18 146/82 100 01/19/19 08:49 01/19/19 09:18 01/19/19 08:49 01/19/19 09:18 01/19/19 08:49 Temperature -Last 24 Hours Temperature 98.6 F Temperature 99.1 F Temperature 98.0 F Temperature 97.3 F Temperature 98.0 F Temperature 99 F - Labs CBC & Chem 7: 01/19/19 09:37 01/18/19 12:30 Labs: Abnormal lab results 01/18/19 01/18/19 01/18/19 Range/Units 10:24 12:13 12:30 WBC 19.9 H (4.5-11.0) K/mm3 MCH 26 L (28-32) pg RDW 24.3 H (13.2-15.2) % Seg Neuts % (Manual) 92.0 H (40.0-70.0) % Lymphocytes % (Manual) 5.0 L (13.4-35.0) % Seg Neutrophils # Man 18.3 H (1.8-7.7) K/mm3 Lymphocytes # (Manual) 1.0 L (1.2-5.4) K/mm3 Potassium 3.2 L (3.6-5.0) mmol/L BUN 22 H (7-17) mg/dL Creatinine 4.7 H (0.7-1.2) mg/dL Glucose 166 H (65-100) mg/dL POC Glucose 168 H (70-105) Calcium 10.3 H (8.4-10.2) mg/dL 01/18/19 01/19/19 01/19/19 Range/Units 18:00 00:54 08:23 WBC (4.5-11.0) K/mm3 MCH (28-32) pg RDW (13.2-15.2) % Seg Neuts % (Manual) (40.0-70.0) % Lymphocytes % (Manual) (13.4-35.0) % Seg Neutrophils # Man (1.8-7.7) K/mm3 Lymphocytes # (Manual) (1.2-5.4) K/mm3 Potassium (3.6-5.0) mmol/L BUN (7-17) mg/dL Creatinine (0.7-1.2) mg/dL Glucose (65-100) mg/dL POC Glucose 115 H 159 H 162 H (70-105) Calcium (8.4-10.2) mg/dL
[2019-01-19 10:07] LABS: Mean Corpuscular HGB Conc 30 % (30-34); Mean Corpuscular Volume 84 fl (79-97); Platelet Count 254 K/mm3 (140-440); Red Blood Count 4.23 M/mm3 (3.65-5.03)
[2019-01-19 10:32] LABS: Hematocrit 35.7 % (30.3-42.9); Hemoglobin 10.7 gm/dl (10.1-14.3); Red Cell Distribution Width 24.5 % (13.2-15.2)
[2019-01-19 10:54] LABS: Anisocytosis 2+; Basophils % (Manual) 0 % (0.0-1.8); Hypochromasia 1+; Platelet Estimate Consistent w Auto; Total Cells Counted 100
--- NOTE | 2019-01-19 12:43 | Progress Note ---
Assessment and Plan Patient will need amputation of her gangrenous toe. She now has 2 vessel runoff to the foot. Subjective Date of service: 01/19/19 Principal diagnosis: PVD with gangrene Interval history: Patient has undergone maximal revascularization procedures and should be able to heel rotation of her toe. Her leg is warm. Pressure dressing has been removed. Her left groin is soft. Objective - Constitutional Vitals: Vital Signs - 12hr 01/19/19 01/19/19 01/19/19 00:46 03:24 06:00 Temperature 99.1 F Pulse Rate 110 H 118 H Respiratory 16 20 Rate Blood Pressure 133/80 Blood Pressure [Left] O2 Sat by Pulse 89 Oximetry 01/19/19 01/19/19 01/19/19 08:00 08:49 09:17 Temperature 98.6 F Pulse Rate 103 H 97 H 98 H Respiratory 18 Rate Blood Pressure 146/82 146/82 Blood Pressure [Left] O2 Sat by Pulse 100 Oximetry 01/19/19 01/19/19 09:18 12:09 Temperature Pulse Rate 98 H 116 H Respiratory Rate Blood Pressure 146/82 Blood Pressure 111/68 [Left] O2 Sat by Pulse Oximetry General appearance: Present: no acute distress - EENT Eyes: EOM intact ENT: hearing intact - Neck Neck: supple - Respiratory Respiratory effort: normal - Breasts Breasts: deferred Extremities: abnormal - Gastrointestinal General gastrointestinal: Present: deferred Rectal Exam: deferred - Genitourinary Female genitourinary: deferred - Psychiatric Psychiatric: cooperative - Labs CBC & Chem 7: 01/19/19 09:37 01/18/19 12:30 Labs: Abnormal lab results 01/18/19 01/18/19 01/19/19 Range/Units 12:30 18:00 00:54 WBC (4.5-11.0) K/mm3 MCH (28-32) pg RDW (13.2-15.2) % Seg Neuts % (Manual) (40.0-70.0) % Lymphocytes % (Manual) (13.4-35.0) % Seg Neutrophils # Man (1.8-7.7) K/mm3 Lymphocytes # (Manual) (1.2-5.4) K/mm3 Potassium 3.2 L (3.6-5.0) mmol/L BUN 22 H (7-17) mg/dL Creatinine 4.7 H (0.7-1.2) mg/dL Glucose 166 H (65-100) mg/dL POC Glucose 115 H 159 H (70-105) Calcium 10.3 H (8.4-10.2) mg/dL 01/19/19 01/19/19 Range/Units 08:23 09:37 WBC 21.8 H (4.5-11.0) K/mm3 MCH 25 L (28-32) pg RDW 24.5 H (13.2-15.2) % Seg Neuts % (Manual) 94.0 H (40.0-70.0) % Lymphocytes % (Manual) 4.0 L (13.4-35.0) % Seg Neutrophils # Man 20.5 H (1.8-7.7) K/mm3 Lymphocytes # (Manual) 0.9 L (1.2-5.4) K/mm3 Potassium (3.6-5.0) mmol/L BUN (7-17) mg/dL Creatinine (0.7-1.2) mg/dL Glucose (65-100) mg/dL POC Glucose 162 H (70-105) Calcium (8.4-10.2) mg/dL Medications & Allergies - Medications Allergies/Adverse Reactions: Allergies erythromycin base [Erythromycin Base] Allergy (Verified 10/26/18 18:04) Rash PATIENT ASK ME TO REMOVEDMED ON ALLERGY LIST. Home Medications: Home Medications Medication Instructions Recorded Confirmed Last Taken Type Ferric Citrate (Nf) [Auryxia] 630 mg PO TIDWM 09/05/18 12/28/18 11/18/18 History Pantoprazole [Protonix TAB] 40 mg PO BID #60 tablet 10/03/18 12/28/18 10/16/18 20:00 Rx ISOSORBIDE MONOnitrate [Imdur ER] 30 mg PO QDAY #30 tablet 10/04/18 12/28/18 Unknown Rx Lisinopril [Zestril TAB] 5 mg PO DAILY #30 tablet 10/04/18 12/28/18 Unknown Rx cloNIDine [Catapres] 0.1 mg PO TID PRN 10/17/18 12/28/18 Unknown History Mupirocin [Bactroban 2% OINT] 1 applic TP TID #1 tube 10/29/18 12/28/18 Unknown Rx Clopidogrel [Plavix] 75 mg PO QDAY #30 tablet 11/28/18 12/28/18 Unknown Rx Clopidogrel [Plavix] 75 mg PO QDAY tablet 11/29/18 12/28/18 Unknown Rx oxyCODONE /ACETAMINOPHEN [Percocet 1 tab PO Q6H PRN #10 tablet 11/29/18 12/28/18 Unknown Rx 5/325 mg] Active Medications: Generic Name Dose Route Start Last Admin Trade Name Freq PRN Reason Stop Dose Admin Acetaminophen 650 mg 01/13/19 22:37 01/18/19 00:16 Tylenol PO 650 mg Q4H PRN Administration Pain MILD(1-3)/Fever >100.5/PEREZ Aspirin 81 mg 01/18/19 18:00 01/19/19 09:18 Halfprin Ec PO 81 mg QDAY CALIXTO Administration Clonidine HCl 0.1 mg 01/14/19 09:31 Catapres PO TID PRN Blood Pressure Clopidogrel Bisulfate 75 mg 01/14/19 10:00 01/19/19 09:18 Plavix PO 75 mg QDAY CALIXTO Administration Dextrose 50 ml 01/13/19 22:40 01/14/19 20:59 D50w (25gm) Syringe IV 50 ml PRN PRN Administration Hypoglycemia Enoxaparin Sodium 30 mg 01/14/19 10:00 01/19/19 09:16 Lovenox SUB-Q 30 mg QDAY CALIXTO Administration Piperacillin Sod/Tazobactam Sod 2.25 gm in 50 mls @ 100 mls/hr 01/13/19 23:00 01/19/19 06:28 Zosyn/Ns 2.25 Gm/50ml IV Not Given Q8HR [facility] Protocol Insulin Human Lispro 0 unit 01/14/19 07:30 01/19/19 09:25 Humalog SUB-Q 2 unit ACHS CALIXTO Administration Protocol Isosorbide Mononitrate 30 mg 01/14/19 10:00 01/19/19 09:17 Imdur PO 30 mg DAILY CALIXTO Administration Lisinopril 5 mg 01/14/19 10:00 01/19/19 09:18 Zestril PO 5 mg DAILY CALIXTO Administration Mupirocin 1 applic 01/14/19 14:00 01/19/19 00:35 Bactroban 2% TP Not Given TID CALIXTO Ondansetron HCl 4 mg 01/13/19 22:37 Zofran IV Q8H PRN Nausea And Vomiting Oxycodone/Acetaminophen 1 tab 01/14/19 09:31 01/19/19 05:04 Percocet 5/325 PO 1 tab Q6H PRN Administration Pain, Moderate (4-6) Pantoprazole Sodium 40 mg 01/14/19 10:00 01/19/19 09:18 Protonix PO 40 mg BID CALIXTO Administration Sodium Chloride 10 ml 01/14/19 10:00 01/19/19 09:25 Sodium Chloride Flush Syringe 10 Ml IV 10 ml BID CALIXTO Administration Sodium Chloride 10 ml 01/13/19 22:37 01/17/19 05:27 Sodium Chloride Flush Syringe 10 Ml IV 10 ml PRN PRN Administration LINE FLUSH
--- NOTE | 2019-01-19 15:38 | Progress Note ---
Assessment and Plan Assessment and plan: Patient is 68 year old woman from [facility] with a history of Hypertension, DM type 2, ESRD on HD, CAD, PVD and right lower extremity with gangrene of the ankle status post recent re-vascularization,comes to [facility] ED because she was severely tachycardiac at Hemodialysis center. In the emergency room she was found to have gangrene of the right foot, started on vancomycin. * Previous angiogram result Impression: 1) Aortogram and right lower extremity angiography demonstrating multifocal 80-90% stenosis within the proximal and mid SFA with complete occlusion of the mid to distal SFA and reconstitution of the popliteal artery and distal SFA through collaterals. There is single vessel runoff to the foot throughout peroneal artery. 2) Attempted revascularization from both an antegrade and pedal approach as described without success. 3) The patient will need to be rescheduled for re-va scularization procedure on her right leg with anesthesia from both an antegrade and popliteal artery approach. Acute Right leg limb ischemia: Continue palvix, Vascular consulted. ?Ampuation. Woundcare consulted Dry gangrene: Per vascular Patient was seen in the office on 01/12/19 with plan for revascularization on 01/18/19. Patient had dry gangrene at the time, not wet gangrene. Patient is now in the hospital. If patient's clinical status improves, plan will be for further revascularization on 01/18/19 Type 2 MO: Conservative management Leukocytosis- No evidence of sepsis. Continue abx, consult ID Diabetic foot nonhealing ulcer: Vascular re-evaluation, ?need for amputation- surgery consulted Decubitus ulcer at least stage 2/3 poa: consulted Wound care, HTN: continue antihypertensives ESRD on Hemodialysis TTS: Nephrology is following, monitor bmp closely, renal diet Diabetes Mellitus type 2: continue insulin and keep blood glucose less than 160 Anemia of chronic disease: monitored cbc closely and was stable Severe Protien calorie Malnutrition, poa: Guest House Manager consulted PAD- Prox Superficial Femoral Artery associated with critical limb ischemia, see above: Vascular Surgeon is managing, s/p Re-vascularization procedure of her right leg 11/27/18 with good result. d/w Dr. Jones, Started on Plavix Chronic edema of left upper extremity: The patient has had multiple workup with no find is a student reason why. This also houses her AV graft. Poor prognosis Disposition: continue inpatient care, Re-vascularization done on , d/w General Surgeon today, Dr. Aden, patient can leave and follow up with him in Wound care to see if she really needs an amputation, no emergency need for dry gangrene but Patient doesn't want to go without an amputation History Interval history: Patient was seen and examined. Follow-up on current diagnosis of PAD. No overnight events reported to me. Patient denies any chest pain, shortness breath, nausea/vomiting or severe headaches. Imaging, nursing note, chart, labs and old chart reviewed. Discussed with patient. Hospitalist Physical - Physical exam Narrative exam: Gen: cachetic, chronic ill appearing, BMI 16.8, NAD, Awake, Alert, Orientated x 2 HEENT: NCAT, EOMI, PERRL, OP Clear Neck: supple, no adenopathy, no thyromegaly, no JVD CVS/Heart: RRR, normal S1S2, pulses present bilaterally Chest/Lungs: CTA B, Symmetrical chest expansion, good air entry bilaterally GI/Abdomen: soft, NTND, good bowel sounds, no guarding or rebound /Bladder: no suprapubic tenderness, no CVA or paraspinal tenderness Extermity/Skin: right great toe necrotic, stage 2/3 sacral pressure ulcer, left heel DTI MSK: FROM x 4 Neuro: CN 2-12 grossly intact, no new focal deficits Psych: calm - Constitutional Vitals: Temp Pulse Resp BP Pulse Ox 98.6 F 116 H 18 111/68 100 01/19/19 08:49 01/19/19 12:09 01/19/19 08:49 01/19/19 12:09 01/19/19 08:49 General appearance: Present: no acute distress Results - Labs CBC & Chem 7: 01/19/19 09:37 01/18/19 12:30 Labs: Laboratory Last Values WBC 21.8 K/mm3 (4.5-11.0) H 01/19/19 09:37 RBC 4.23 M/mm3 (3.65-5.03) 01/19/19 09:37 Hgb 10.7 gm/dl (10.1-14.3) 01/19/19 09:37 Hct 35.7 % (30.3-42.9) 01/19/19 09:37 MCV 84 fl (79-97) 01/19/19 09:37 MCH 25 pg (28-32) L 01/19/19 09:37 MCHC 30 % (30-34) 01/19/19 09:37 RDW 24.5 % (13.2-15.2) H 01/19/19 09:37 Plt Count 254 K/mm3 (140-440) 01/19/19 09:37 Lymph % (Auto) 2.3 % (13.4-35.0) L 01/17/19 00:42 [place] % (Auto) 6.4 % (0.0-7.3) 01/17/19 00:42 Eos % (Auto) 0.1 % (0.0-4.3) 01/17/19 00:42 Baso % (Auto) 1.2 % (0.0-1.8) 01/17/19 00:42 Lymph # 0.4 K/mm3 (1.2-5.4) L 01/17/19 00:42 [place] # 1.1 K/mm3 (0.0-0.8) H 01/17/19 00:42 Eos # 0.0 K/mm3 (0.0-0.4) 01/17/19 00:42 Baso # 0.2 K/mm3 (0.0-0.1) H 01/17/19 00:42 Add Manual Diff Complete 01/19/19 09:37 Total Counted 100 01/19/19 09:37 Seg Neutrophils % Sleeve Turner 01/19/19 09:37 Seg Neuts % (Manual) 94.0 % (40.0-70.0) H 01/19/19 09:37 0 % 01/19/19 09:37 4.0 % (13.4-35.0) L 01/19/19 09:37 Reactive Lymphs % (Man) 0 % 01/19/19 09:37 1.0 % (0.0-7.3) 01/19/19 09:37 1.0 % (0.0-4.3) 01/19/19 09:37 0 % (0.0-1.8) 01/19/19 09:37 0 % 01/19/19 09:37 0 % 01/19/19 09:37 0 % 01/19/19 09:37 0 % 01/19/19 09:37 Nucleated RBC % Not Reportable 01/19/19 09:37 Seg Neutrophils # 15.2 K/mm3 (1.8-7.7) H 01/17/19 00:42 Seg Neutrophils # Man 20.5 K/mm3 (1.8-7.7) H 01/19/19 09:37 Band Neutrophils # 0.0 K/mm3 01/19/19 09:37 0.9 K/mm3 (1.2-5.4) L 01/19/19 09:37 Abs React Lymphs (Man) 0.0 K/mm3 01/19/19 09:37 0.2 K/mm3 (0.0-0.8) 01/19/19 09:37 0.2 K/mm3 (0.0-0.4) 01/19/19 09:37 0.0 K/mm3 (0.0-0.1) 01/19/19 09:37 0.0 K/mm3 01/19/19 09:37 0.0 K/mm3 01/19/19 09:37 0.0 K/mm3 01/19/19 09:37 Blast Cells # 0.0 K/mm3 01/19/19 09:37 WBC Morphology Not Reportable 01/19/19 09:37 Hypersegmented Neuts Not Reportable 01/19/19 09:37 Hyposegmented Neuts Not Reportable 01/19/19 09:37 Hypogranular Neuts Not Reportable 01/19/19 09:37 Not Reportable 01/19/19 09:37 Not Reportable 01/19/19 09:37 Not Reportable 01/19/19 09:37 Not Reportable 01/19/19 09:37 Not Reportable 01/19/19 09:37 Not Reportable 01/19/19 09:37 Consistent w auto 01/19/19 09:37 Not Reportable 01/19/19 09:37 Plt Clumps, EDTA Not Reportable 01/19/19 09:37 Not Reportable 01/19/19 09:37 Not Reportable 01/19/19 09:37 Not Reportable 01/19/19 09:37 Plt Morphology Comment Not Reportable 01/19/19 09:37 RBC Morphology Not Reportable 01/19/19 09:37 Dimorphic RBCs Not Reportable 01/19/19 09:37 Not Reportable 01/19/19 09:37 1+ 01/19/19 09:37 Not Reportable 01/19/19 09:37 2+ 01/19/19 09:37 Not Reportable 01/19/19 09:37 Not Reportable 01/19/19 09:37 Not Reportable 01/19/19 09:37 Not Reportable 01/19/19 09:37 Not Reportable 01/19/19 09:37 Not Reportable 01/19/19 09:37 Not Reportable 01/19/19 09:37 Not Reportable 01/19/19 09:37 Not Reportable 01/19/19 09:37 Not Reportable 01/19/19 09:37 Not Reportable 01/19/19 09:37 Not Reportable 01/19/19 09:37 Not Reportable 01/19/19 09:37 Not Reportable 01/19/19 09:37 Not Reportable 01/19/19 09:37 Acanthocytes (Spur) Not Reportable 01/19/19 09:37 Rouleaux Not Reportable 01/19/19 09:37 Not Reportable 01/19/19 09:37 Not Reportable 01/19/19 09:37 Not Reportable 01/19/19 09:37 Not Reportable 01/19/19 09:37 Hem Pathologist Commnt No 01/19/19 09:37 PT 15.5 Sec. (12.2-14.9) H 01/13/19 17:42 INR 1.26 (0.87-1.13) H 01/13/19 17:42 APTT 50.0 Sec. (24.2-36.6) H 01/13/19 17:42 Sodium 141 mmol/L (137-145) 01/18/19 12:30 Potassium 3.2 mmol/L (3.6-5.0) L 01/18/19 12:30 Chloride 98.9 mmol/L (98-107) 01/18/19 12:30 Carbon Dioxide 26 mmol/L (22-30) 01/18/19 12:30 19 mmol/L 01/18/19 12:30 BUN 22 mg/dL (7-17) H 01/18/19 12:30 4.7 mg/dL (0.7-1.2) H 01/18/19 12:30 Estimated GFR 11 ml/min 01/18/19 12:30 5 % 01/18/19 12:30 Glucose 166 mg/dL (65-100) H 01/18/19 12:30 POC Glucose 230 (70-105) H 01/19/19 12:40 Lactic Acid 0.90 mmol/L (0.7-2.0) 01/13/19 17:54 Calcium 10.3 mg/dL (8.4-10.2) H 01/18/19 12:30 Magnesium 1.90 mg/dL (1.7-2.3) 01/13/19 17:54 0.50 mg/dL (0.1-1.2) 01/13/19 17:42 < 0.2 mg/dL (0-0.2) 01/13/19 17:42 0.3 mg/dL 01/13/19 17:42 AST 10 units/L (5-40) 01/13/19 17:42 ALT < 5 units/L (7-56) L 01/13/19 17:42 123 units/L (35-129) 01/13/19 17:42 73 units/L (30-135) 01/14/19 07:21 CK-MB (CK-2) 4.4 ng/mL (0.0-4.0) H 01/14/19 07:21 CK-MB (CK-2) Rel Index 6.0 (0-4) H 01/14/19 07:21 0.335 ng/mL (0.00-0.029) H* D 01/14/19 07:21 NT-Pro-B Natriuret Pep 84704 pg/mL (0-900) H 01/13/19 17:42 6.8 g/dL (6.3-8.2) 01/13/19 17:42 2.9 g/dL (3.9-5) L 01/13/19 17:42 0.7 % 01/13/19 17:42 Triglycerides 218 mg/dL (2-149) H 01/13/19 17:54 Cholesterol 130 mg/dL (50-199) 01/13/19 17:54 50 mg/dL (50-130) 01/13/19 17:54 37 mg/dL (40-59) L 01/13/19 17:54 3.51 % 01/13/19 17:54 TSH 3.000 mlU/mL (0.270-4.200) 01/13/19 17:42 Random Vancomycin 10.7 ug/mL (0-40.0) 01/17/19 10:25 Active Medications - Current Medications Current Medications: Generic Name Dose Route Start Last Admin Trade Name Freq PRN Reason Stop Dose Admin Acetaminophen 650 mg 01/13/19 22:37 01/18/19 00:16 Tylenol PO 650 mg Q4H PRN Administration Pain MILD(1-3)/Fever >100.5/PEREZ Aspirin 81 mg 01/18/19 18:00 01/19/19 09:18 Halfprin Ec PO 81 mg QDAY CALIXTO Administration Clonidine HCl 0.1 mg 01/14/19 09:31 Catapres PO TID PRN Blood Pressure Clopidogrel Bisulfate 75 mg 01/14/19 10:00 01/19/19 09:18 Plavix PO 75 mg QDAY CALIXTO Administration Dextrose 50 ml 01/13/19 22:40 01/14/19 20:59 D50w (25gm) Syringe IV 50 ml PRN PRN Administration Hypoglycemia Enoxaparin Sodium 30 mg 01/14/19 10:00 01/19/19 09:16 Lovenox SUB-Q 30 mg QDAY CALIXTO Administration Piperacillin Sod/Tazobactam Sod 2.25 gm in 50 mls @ 100 mls/hr 01/13/19 23:00 01/19/19 13:36 Zosyn/Ns 2.25 Gm/50ml IV 100 mls/hr Q8HR CALIXTO Administration Protocol Insulin Human Lispro 0 unit 01/14/19 07:30 01/19/19 12:56 Humalog SUB-Q 3 unit ACHS CALIXTO Administration Protocol Isosorbide Mononitrate 30 mg 01/14/19 10:00 01/19/19 09:17 Imdur PO 30 mg DAILY CALIXTO Administration Lisinopril 5 mg 01/14/19 10:00 01/19/19 09:18 Zestril PO 5 mg DAILY CALIXTO Administration Mupirocin 1 applic 01/14/19 14:00 01/19/19 13:17 Bactroban 2% TP 1 applic TID CALIXTO Administration Ondansetron HCl 4 mg 01/13/19 22:37 Zofran IV Q8H PRN Nausea And Vomiting Oxycodone/Acetaminophen 1 tab 01/14/19 09:31 01/19/19 05:04 Percocet 5/325 PO 1 tab Q6H PRN Administration Pain, Moderate (4-6) Pantoprazole Sodium 40 mg 01/14/19 10:00 01/19/19 09:18 Protonix PO 40 mg BID CALIXTO Administration Sodium Chloride 10 ml 01/14/19 10:00 01/19/19 09:25 Sodium Chloride Flush Syringe 10 Ml IV 10 ml BID CALIXTO Administration Sodium Chloride 10 ml 01/13/19 22:37 01/17/19 05:27 Sodium Chloride Flush Syringe 10 Ml IV 10 ml PRN PRN Administration LINE FLUSH Nutrition/Malnutrition Assess - Dietary Evaluation Nutrition/Malnutrition Findings: Nutrition Notes Start: 01/15/19 15:22 Freq: Status: Active Protocol: Document 01/17/19 13:44 RM (Rec: 01/17/19 13:55 RM [id number]) Nutrition Notes Initial or Follow up Reassessment Current Diagnosis Coronary Artery Disease, Diabetes,Hypertension Other Pertinent Diagnosis ESRD on HD (T/T/S), R foot wound w/gangrene, Sacral PU, PVD Current Diet Cardiac/Consistent CHO Labs/Tests Reviewed Pertinent Medications Reviewed Height 5 ft 2 in Weight 41.6 kg [place] Body Weight (kg) 50.00 BMI 16.7 Subjective/Other Information Per nurse pt has been NPO this morning d/t swallow evaluation. Pt stated that her appetite is poor d/t pain and that she eats 25% of her meals. Pt stated that she has not received Nepro yet. Percent of energy/protein needs met: 36%/41% Burn Absent Trauma Absent #1 Nutrition Diagnosis Malnutrition Diagnosis Progress(for reassessment Continues documentation) Is patient on ventilator? No Is Patient Ambulatory and/or Out of Bed No REE-([facility]-confined to bed) 1073.316 Kcal/Kg value to use for calculation 33 Approximate Energy Requirements Using 1373 kcal/Kg Additional Notes Protein Needs: 51-64g (1.2-1. 5g/kg) Fluid Needs: 1 ml/kcal Nutrition Intervention Change Diet Order: Continue current Add Supplement/Snack (indicate name/kcal Nepro 1 daily /protein ) Provides kCal: 425 Provides Protein (gm) 19 Goal #1 Meet at least 75% of calorie and protein needs via PO and ONS intakes Goal #2 Wt gain/maintenance Anticipated Discharge Needs: Cardiac/Consistent CHO diet Follow-Up By: 01/19/19 Additional Comments Follow for PO and ONS intakes
--- NOTE | 2019-01-19 16:17 | Discharge Summary ---
Providers - Providers Date of Admission: 01/13/19 21:42 Date of discharge: 01/19/19 Attending physician: CURTIS PATEL 01/13/19 18:56 Consult to Physician [CONS] Routine Comment: Consulting Provider: CHERY RODRIGES Physician Instructions: Reason For Exam: dry gangrene R foot, PAD 01/13/19 18:57 Consult to Physician [CONS] Routine Comment: Consulting Provider: JULITO ROSARIO Physician Instructions: Reason For Exam: ESRD on dialysis 01/14/19 02:41 Consult to Wound/ET Nurse [CONS] Routine Reason For Exam: wound eval 01/14/19 08:18 Consult to Physician [CONS] Routine Comment: Consulting Provider: LIYAH MEEK Physician Instructions: Reason For Exam: mulitple infected ulcers, lower ext gangrene 01/15/19 12:33 Consult to Physician [CONS] Routine Comment: Consulting Provider: MICHAEL ADEN Physician Instructions: Reason For Exam: RIGHT FOOT GANGRENE 01/16/19 13:27 Speech Therapy Evaluation and Treat [CONS] Routine Reason For Exam: patient pockets food and spits it out. [facility] Hospital[facility] Condition: Stable Hospital course: Patient is 68 year old woman from [facility] with a history of Hypertension, DM type 2, ESRD on HD, CAD, PVD and right lower extremity with gangrene of the ankle status post recent re-vascularization,comes to [facility] ED because she was severely tachycardiac at Hemodialysis center. In the emergency room she was found to have gangrene of the right foot, started on vancomycin. * Previous angiogram result Impression: 1) Aortogram and right lower extremity angiography demonstrating multifocal 80-90% stenosis within the proximal and mid SFA with complete occlusion of the mid to distal SFA and reconstitution of the popliteal artery and distal SFA through collaterals. There is single vessel runoff to the foot throughout peroneal artery. 2) Attempted revascularization from both an antegrade and pedal approach as described without success. 3) The patient will need to be rescheduled for re- vascularization procedure on her right leg with anesthesia from both an antegrade and popliteal artery approach. Discharge Diagnoses: Acute Right leg limb ischemia: Continue palvix, Vascular consulted, no Amputation. Woundcare consulted Dry gangrene: Per vascular Patient was seen in the office on 01/12/19 with plan for revascularization on 01/18/19. Patient had dry gangrene at the time, not wet gangrene. Patient is now in the hospital. If patient's clinical status improves, plan will be for further revascularization on 01/18/19 Type 2 AL: Conservative management Leukocytosis- No evidence of sepsis. Continue abx, consult ID Diabetic foot nonhealing ulcer due to PAD s/p angioplasty on 01/18/19: Decubitus ulcer at least stage 2/3 poa: consulted Wound care, HTN: continue antihypertensives ESRD on Hemodialysis TTS: Nephrology is following, monitor bmp closely, renal diet Diabetes Mellitus type 2: continue insulin and keep blood glucose less than 160 Anemia of chronic disease: monitored cbc closely and was stable Severe Protien calorie Malnutrition, poa: Educational Psychology Teacher consulted PAD- Prox Superficial Femoral Artery associated with critical limb ischemia, see above: Vascular Surgeon is managing, s/p Re-vascularization procedure of her right leg 11/27/18 with good result. d/w Dr. Jones, Started on Plavix Chronic edema of left upper extremity: The patient has had multiple workup with no find is a student reason why. This also houses her AV graft. Poor prognosis Disposition: back to [facility], Re-vascularization done on , 01/18/19 and d/w General Surgeon today, Dr. Aden==>patient can leave and follow up with him in Wound care, no emergency need for amputation with dry gangrene but Patient doesn't want to go without an amputation. Counseling done Disposition: [id number]/[id number] C[facility] Time spent for discharge: 36 minutes Core Measure Documentation - Palliative Care Palliative Care/ Comfort Measures: Not Applicable - Core Measures Any of the following diagnoses?: none - VTE Discharge Requirements Deep Vein Thrombosis/Pulmonary Embolism Present on Admission: No Has pt received <5 days of overlap therapy or INR<2.0: No Anticoagulant overlap therapy prescribed at discharge: No Contraindication No Overlap Therapy order at DC: Not Indicated Exam - Physical Exam Narrative exam: Gen: cachetic, chronic ill appearing, BMI 16.8, NAD, Awake, Alert, Orientated x 2 HEENT: NCAT, EOMI, PERRL, OP Clear Neck: supple, no adenopathy, no thyromegaly, no JVD CVS/Heart: RRR, normal S1S2, pulses present bilaterally Chest/Lungs: CTA B, Symmetrical chest expansion, good air entry bilaterally GI/Abdomen: soft, NTND, good bowel sounds, no guarding or rebound /Bladder: no suprapubic tenderness, no CVA or paraspinal tenderness Extermity/Skin: right great toe necrotic, stage 2/3 sacral pressure ulcer, left heel DTI MSK: FROM x 4 Neuro: CN 2-12 grossly intact, no new focal deficits Psych: calm - Constitutional Vitals: Temp Pulse Resp BP Pulse Ox 98.0 F 107 H 18 121/67 100 01/19/19 16:07 01/19/19 16:07 01/19/19 16:07 01/19/19 16:07 01/19/19 16:07 Plan Activity: fall precautions, other (no strenous activity) Diet: diabetic, renal Special Instructions: record daily BP diary, record blood sugar diary Follow up with: ITZ CHAUCASSELTON MD BALBINA [Primary Care Provider] - 3-5 Days MICHAEL ADEN MD [Staff Physician] - 7 Days Prescriptions: RX: oxyCODONE /ACETAMINOPHEN [Percocet 5/325 mg] 1 tab PO Q6H PRN #20 tablet PRN Reason: Pain , Severe (7-10)
--- NOTE | 2019-01-19 17:11 | Progress Note ---
Assessment and Plan - Patient Problems (1) ESRD (end stage renal disease) on dialysis Current Visit: Yes Status: Chronic Plan to address problem: End-stage renal disease on dialysis Dialysis access left arm aVF Continue dialysis Tuesday schedule (2) Diabetes mellitus Current Visit: No Status: Chronic Qualifiers: Diabetes mellitus type: type 2 Plan to address problem: Diabetes mellitus Continue medications monitor fingersticks (3) Hypertension Current Visit: No Status: Chronic Qualifiers: Hypertension type: essential hypertension Qualified Code(s): I10 - Essential (primary) hypertension (4) Peripheral vascular disease Current Visit: Yes Status: Acute Plan to address problem: Peripheral vascular disease with dry gangrene involving right foot vascular surgery following (5) Hypokalemia Current Visit: Yes Status: Acute Plan to address problem: Hypokalemia post dialysis Use 3K bath for next treatment . Subjective Principal diagnosis: PVD with gangrene Interval history: 68-year-old lady with hypertension, end-stage renal disease, CAD, peripheral vascular disease, gangrene of the ankle Patient seen today Denies any orthopnea or PND. gangrene noted in right foot Status post procedure Plan for dialysis on Tuesday Objective - Vital Signs Vital signs: Vital Signs - 12hr 01/19/19 01/19/19 01/19/19 06:00 08:00 08:49 Temperature 98.6 F Pulse Rate 118 H 103 H 97 H Respiratory 18 Rate Blood Pressure 146/82 Blood Pressure [Left] O2 Sat by Pulse 100 Oximetry 01/19/19 01/19/19 01/19/19 09:17 09:18 11:30 Temperature Pulse Rate 98 H 98 H Respiratory 18 Rate Blood Pressure 146/82 146/82 111/68 Blood Pressure [Left] O2 Sat by Pulse Oximetry 01/19/19 01/19/19 12:09 16:07 Temperature 98.0 F Pulse Rate 116 H 107 H Respiratory 18 Rate Blood Pressure 121/67 Blood Pressure 111/68 [Left] O2 Sat by Pulse 100 Oximetry - General Appearance General appearance: well-developed, well-nourished EENT: ATNC, PERRL, mucous membranes dry Neck: no JVD Respiratory: Present: Clear to Ascultation Cardiology: regular, S1S2 Gastrointestinal: normal, normoactive bowel sounds Integumentary: rash Neurologic: alert and oriented x3, CN 3-12 intact Psychiatric: mood/affect appropriate, paranoid ideation - Lab 01/19/19 09:37 01/18/19 12:30 Most recent lab results Calcium 10.3 mg/dL (8.4-10.2) H 01/18/19 12:30 Magnesium 1.90 mg/dL (1.7-2.3) 01/13/19 17:54 - Imaging Chest x-ray: image reviewed (I reviewed chest x-ray is hazy opacities) Medications & Allergies - Medications Allergies/Adverse Reactions: Allergies erythromycin base [Erythromycin Base] Allergy (Verified 10/26/18 18:04) Rash PATIENT ASK ME TO REMOVEDMED ON ALLERGY LIST. Home Medications: Home Medications Medication Instructions Recorded Confirmed Last Taken Type Ferric Citrate (Nf) [Auryxia] 630 mg PO TIDWM 09/05/18 12/28/18 11/18/18 History Pantoprazole [Protonix TAB] 40 mg PO BID #60 tablet 10/03/18 12/28/18 10/16/18 20:00 Rx ISOSORBIDE MONOnitrate [Imdur ER] 30 mg PO QDAY #30 tablet 10/04/18 12/28/18 Unknown Rx Lisinopril [Zestril TAB] 5 mg PO DAILY #30 tablet 10/04/18 12/28/18 Unknown Rx cloNIDine [Catapres] 0.1 mg PO TID PRN 10/17/18 12/28/18 Unknown History Mupirocin [Bactroban 2% OINT] 1 applic TP TID #1 tube 10/29/18 12/28/18 Unknown Rx Clopidogrel [Plavix] 75 mg PO QDAY #30 tablet 11/28/18 12/28/18 Unknown Rx Clopidogrel [Plavix] 75 mg PO QDAY tablet 11/29/18 12/28/18 Unknown Rx oxyCODONE /ACETAMINOPHEN [Percocet 1 tab PO Q6H PRN #20 tablet 01/19/19 Unknown Rx 5/325 mg] Active Medications: Generic Name Dose Route Start Last Admin Trade Name Freq PRN Reason Stop Dose Admin Acetaminophen 650 mg 01/13/19 22:37 01/18/19 00:16 Tylenol PO 650 mg Q4H PRN Administration Pain MILD(1-3)/Fever >100.5/PEREZ Aspirin 81 mg 01/18/19 18:00 01/19/19 09:18 Halfprin Ec PO 81 mg QDAY CALIXTO Administration Clonidine HCl 0.1 mg 01/14/19 09:31 Catapres PO TID PRN Blood Pressure Clopidogrel Bisulfate 75 mg 01/14/19 10:00 01/19/19 09:18 Plavix PO 75 mg QDAY CALIXTO Administration Dextrose 50 ml 01/13/19 22:40 01/14/19 20:59 D50w (25gm) Syringe IV 50 ml PRN PRN Administration Hypoglycemia Enoxaparin Sodium 30 mg 01/14/19 10:00 01/19/19 09:16 Lovenox SUB-Q 30 mg QDAY CALIXTO Administration Piperacillin Sod/Tazobactam Sod 2.25 gm in 50 mls @ 100 mls/hr 01/13/19 23:00 01/19/19 13:36 Zosyn/Ns 2.25 Gm/50ml IV 100 mls/hr Q8HR CALIXTO Administration Protocol Insulin Human Lispro 0 unit 01/14/19 07:30 01/19/19 12:56 Humalog SUB-Q 3 unit ACHS CALIXTO Administration Protocol Isosorbide Mononitrate 30 mg 01/14/19 10:00 01/19/19 09:17 Imdur PO 30 mg DAILY CALIXTO Administration Lisinopril 5 mg 01/14/19 10:00 01/19/19 09:18 Zestril PO 5 mg DAILY CALIXTO Administration Mupirocin 1 applic 01/14/19 14:00 01/19/19 13:17 Bactroban 2% TP 1 applic TID CALIXTO Administration Ondansetron HCl 4 mg 01/13/19 22:37 Zofran IV Q8H PRN Nausea And Vomiting Oxycodone/Acetaminophen 1 tab 01/14/19 09:31 01/19/19 05:04 Percocet 5/325 PO 1 tab Q6H PRN Administration Pain, Moderate (4-6) Pantoprazole Sodium 40 mg 01/14/19 10:00 01/19/19 09:18 Protonix PO 40 mg BID CALIXTO Administration Sodium Chloride 10 ml 01/14/19 10:00 01/19/19 09:25 Sodium Chloride Flush Syringe 10 Ml IV 10 ml BID CALIXTO Administration Sodium Chloride 10 ml 01/13/19 22:37 01/17/19 05:27 Sodium Chloride Flush Syringe 10 Ml IV 10 ml PRN PRN Administration LINE FLUSH
--- NOTE | 2019-01-19 18:31 | Event Note ---
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 I spoke to patient and she just doesn't like [facility] and doesn't want to be discharge back there. So, patient wants to appeal her Discharge. I spoke with the digital strategy manager Director and they will address tomorrow.
[2019-01-20] MEDS: ZOSYN/NS 2.25 GM/50ML 2.25 GM/50 ML BAG IV SCH (06:01)
--- NOTE | 2019-01-20 10:57 | Progress Note ---
Assessment and Plan Cultures: 01/13/19 Blood: No growth A/P: 68 year old woman with a past medical history of Hypertension, diabetes, ESRD, CAD PVD, Right lower extremity gangrene.Admitted with: 1. Sepsis on Admission: Still leukocytosis. Etiology right great toe dry gangrene vs non healing foot ulcers vs ischemia. No fevers. Blood cultures in progress. Chest xary no consolidation. No other source of infection on exam. Likely Leukemoid reaction form tissue ischemia, gangrene and cellulitis. Currently being treated with Zosyn and vancomycin. 2. Right Toe Dry gangrene: s/p re-vascularization procedure 01/18/19. This toe is not viable, at some point it would need amputation. 3. Non healing right foot ulcers: 2 ulcers on the dorsum of the right foot. Superficial no drainage. 4. PVD with Right leg ischemia: s/p right leg endovasular revasuclarzation 11/2018. Arterial duplex shows stable moderate generalized atherosclerosis with a similar stenosis of the mid right SFA. s/p re-vascularization procedure 01/18/19 . 5. Sacral Wound - Stage 2 sacral pressure injury noted: superficial. Not infected. Continue wound care 6. Type 2 diabetes: recommend tight glycemic control 7. ESRD on HD: antibiotics renally adjusted. Nephrology following. Recommendations: -stop Vancomycin and Zosyn D7 - no need for further antibiotics as leukocytosis is due to toe gangrene -Continue wound care -monitor leukocytosis off antibiotics -amputation was canceled and patient would be referred for HBO therapy. This toe looks not viable. Will follow Betty Liriano MD [facility] ([facility]) Office [phone] Subjective Date of service: 01/20/19 Principal diagnosis: PVD with gangrene Interval history: Patient feels ok, no complaints, daughter at bedside. No fever. Objective - Exam Narrative Exam: General appearance: Alert in NAD Eyes: anicteric sclerae, moist conjunctivae; no lid-lag; PERRLA HENT: Atraumatic; oropharynx clear Lungs: CTA, with normal respiratory effort and no intercostal retractions CV: RRR no murmur Abdomen: Soft, non-tende Extremities: great toe with blackish discoloration and Skin: No rash. Midchest scar. Psych: Appropriate affect, alert and oriented to person, place and time. Neuro: alert and oriented x 3. Moving all extermities - Constitutional Vitals: Vital Signs Temp Pulse Resp BP Pulse Ox 97.9 F 98 H 18 126/70 100 01/20/19 08:18 01/20/19 08:18 01/20/19 08:18 01/20/19 08:18 01/20/19 08:18 Temperature -Last 24 Hours Temperature 97.9 F Temperature 98.0 F Temperature 98.0 F Temperature 98.0 F Temperature 98.0 F - Labs CBC & Chem 7: 01/19/19 09:37 01/18/19 12:30 Labs: Abnormal lab results 01/19/19 01/19/19 01/19/19 Range/Units 09:37 12:40 16:45 Seg Neuts % (Manual) 94.0 H (40.0-70.0) % Lymphocytes % (Manual) 4.0 L (13.4-35.0) % Seg Neutrophils # Man 20.5 H (1.8-7.7) K/mm3 Lymphocytes # (Manual) 0.9 L (1.2-5.4) K/mm3 POC Glucose 230 H 125 H (70-105) 01/19/19 01/20/19 Range/Units 20:35 07:27 Seg Neuts % (Manual) (40.0-70.0) % Lymphocytes % (Manual) (13.4-35.0) % Seg Neutrophils # Man (1.8-7.7) K/mm3 Lymphocytes # (Manual) (1.2-5.4) K/mm3 POC Glucose 270 H 202 H (70-105)
[2019-01-20] MEDS: PERCOCET 5/325 PO PRN (11:46)
[2019-01-20] MEDS: HumaLOG SUB-Q SCH ×4 (14:24→23:51)
[2019-01-20] MEDS: PROTONIX PO SCH ×2 (14:25→21:28)
[2019-01-20] MEDS: SODIUM CHLORIDE FLUSH SYRINGE 10 ML IV SCH ×2 (14:26→21:28)
[2019-01-20] MEDS: HALFPRIN EC PO SCH (14:49)
[2019-01-20] MEDS: BACTROBAN 2% TP SCH ×3 (14:49→21:29)
[2019-01-20] MEDS: IMDUR PO SCH (14:49)
[2019-01-20] MEDS: LOVENOX SUB-Q SCH (14:50)
[2019-01-20] MEDS: PLAVIX PO SCH (14:50)
[2019-01-20] MEDS: ZESTRIL PO SCH (14:50)
--- NOTE | 2019-01-20 16:49 | Progress Note ---
Subjective Date of service: 01/20/19 Principal diagnosis: PVD with gangrene Interval history: Patient 68-year-old history of hypertension diabetes and stage her disease right gangrene of foot patient had poor vascular supply and a nonviable toes. Status post surgery. Patient was scheduled to be discharged. Antibiotics discontinued. Patient's family did not want to go back to their previous longterm placement and sought to appeal the discharge. Follow with social worker school on Tuesday with appeal. The patient is stable to discharge to nursing home facility. Objective - Constitutional Vitals: Vital Signs - 12hr 01/20/19 01/20/19 01/20/19 08:18 10:00 10:30 Temperature 97.9 F 98.0 F Pulse Rate 98 H 97 H Respiratory 18 18 14 Rate Blood Pressure 126/70 128/79 O2 Sat by Pulse 100 Oximetry 01/20/19 01/20/19 01/20/19 10:45 11:00 11:15 Temperature Pulse Rate 96 H 98 H 96 H Respiratory Rate Blood Pressure 141/77 147/74 146/79 O2 Sat by Pulse Oximetry 01/20/19 01/20/19 01/20/19 11:30 11:45 12:00 Temperature Pulse Rate 100 H 98 H 99 H Respiratory Rate Blood Pressure 137/85 124/66 131/57 O2 Sat by Pulse Oximetry 01/20/19 01/20/19 01/20/19 12:15 12:30 12:45 Temperature Pulse Rate 96 H 95 H 98 H Respiratory Rate Blood Pressure 140/69 126/59 113/62 O2 Sat by Pulse Oximetry 01/20/19 01/20/19 01/20/19 13:00 13:15 13:30 Temperature Pulse Rate 98 H 94 H 102 H Respiratory Rate Blood Pressure 132/69 129/73 99/55 O2 Sat by Pulse Oximetry 01/20/19 01/20/19 01/20/19 13:45 14:49 14:50 Temperature 99.0 F Pulse Rate 96 H 96 H 69 Respiratory 16 Rate Blood Pressure 126/78 126/78 126/78 O2 Sat by Pulse Oximetry General appearance: Present: no acute distress, well-nourished - EENT Eyes: PERRL, EOM intact ENT: hearing intact, clear oral mucosa Ears: bilateral: normal - Neck Neck: supple, normal ROM - Respiratory Respiratory effort: normal Respiratory: bilateral: CTA - Breasts Breasts: normal - Cardiovascular Rhythm: regular Heart Sounds: Present: S1 & S2. Absent: gallop, rub Extremities: pulses intact, No edema, normal color, Full ROM Extremity abnormal: edema, other (patient with right digit bandaged. Discomfort is improved.) - Gastrointestinal General gastrointestinal: Present: soft, non-tender, non-distended, normal bowel sounds - Genitourinary Female genitourinary: normal - Integumentary Integumentary: clear, warm, dry - Musculoskeletal Musculoskeletal: 1, strength equal bilaterally - Neurologic Neurologic: moves all extremities - Psychiatric Psychiatric: memory intact, appropriate mood/affect, intact judgment & insight - Labs CBC & Chem 7: 01/19/19 09:37 01/18/19 12:30 Labs: Abnormal lab results 01/19/19 01/19/19 01/20/19 Range/Units 16:45 20:35 07:27 POC Glucose 125 H 270 H 202 H (70-105)
--- NOTE | 2019-01-20 17:36 | Progress Note ---
Assessment and Plan - Patient Problems (1) ESRD (end stage renal disease) on dialysis Current Visit: Yes Status: Chronic Plan to address problem: End-stage renal disease on dialysis Dialysis access left arm aVF Continue dialysis Tuesday schedule (2) Diabetes mellitus Current Visit: No Status: Chronic Qualifiers: Diabetes mellitus type: type 2 Plan to address problem: Diabetes mellitus Continue medications monitor fingersticks (3) Hypertension Current Visit: No Status: Chronic Qualifiers: Hypertension type: essential hypertension Qualified Code(s): I10 - Essential (primary) hypertension Plan to address problem: Hypertension controlled continue medications (4) Peripheral vascular disease Current Visit: Yes Status: Acute Plan to address problem: Peripheral vascular disease with dry gangrene involving right foot vascular surgery following (5) Hypokalemia Current Visit: Yes Status: Acute Plan to address problem: Hypokalemia post dialysis Use 3K bath for next treatment . Subjective Principal diagnosis: PVD with gangrene Interval history: 68-year-old lady with hypertension, end-stage renal disease, CAD, peripheral vascular disease, gangrene of the ankle Patient seen today Denies any orthopnea or PND. gangrene noted in right foot Status post procedure Plan for dialysis on Tuesday Objective - Vital Signs Vital signs: Vital Signs - 12hr 01/20/19 01/20/19 01/20/19 08:18 10:00 10:30 Temperature 97.9 F 98.0 F Pulse Rate 98 H 97 H Respiratory 18 18 14 Rate Blood Pressure 126/70 128/79 O2 Sat by Pulse 100 Oximetry 01/20/19 01/20/19 01/20/19 10:45 11:00 11:15 Temperature Pulse Rate 96 H 98 H 96 H Respiratory Rate Blood Pressure 141/77 147/74 146/79 O2 Sat by Pulse Oximetry 01/20/19 01/20/19 01/20/19 11:30 11:45 12:00 Temperature Pulse Rate 100 H 98 H 99 H Respiratory Rate Blood Pressure 137/85 124/66 131/57 O2 Sat by Pulse Oximetry 01/20/19 01/20/19 01/20/19 12:15 12:30 12:45 Temperature Pulse Rate 96 H 95 H 98 H Respiratory Rate Blood Pressure 140/69 126/59 113/62 O2 Sat by Pulse Oximetry 01/20/19 01/20/19 01/20/19 13:00 13:15 13:30 Temperature Pulse Rate 98 H 94 H 102 H Respiratory Rate Blood Pressure 132/69 129/73 99/55 O2 Sat by Pulse Oximetry 01/20/19 01/20/19 01/20/19 13:45 14:49 14:50 Temperature 99.0 F Pulse Rate 96 H 96 H 69 Respiratory 16 Rate Blood Pressure 126/78 126/78 126/78 O2 Sat by Pulse Oximetry 01/20/19 17:18 Temperature 98.0 F Pulse Rate 78 Respiratory 18 Rate Blood Pressure 141/89 O2 Sat by Pulse 49 L Oximetry - General Appearance General appearance: chronically ill, frail EENT: ATNC, PERRL, mucous membranes moist Neck: no JVD Respiratory: Present: Clear to Ascultation Cardiology: regular, S1S2 Gastrointestinal: normal, normoactive bowel sounds Integumentary: no rash Neurologic: alert and oriented x3, CN 3-12 intact Psychiatric: mood/affect appropriate - Lab 01/19/19 09:37 01/18/19 12:30 Most recent lab results Calcium 10.3 mg/dL (8.4-10.2) H 01/18/19 12:30 Magnesium 1.90 mg/dL (1.7-2.3) 01/13/19 17:54 - Imaging Chest x-ray: image reviewed (I reviewed CXR without edema. ) Medications & Allergies - Medications Allergies/Adverse Reactions: Allergies erythromycin base [Erythromycin Base] Allergy (Verified 10/26/18 18:04) Rash PATIENT ASK ME TO REMOVEDMED ON ALLERGY LIST. Home Medications: Home Medications Medication Instructions Recorded Confirmed Last Taken Type Ferric Citrate (Nf) [Auryxia] 630 mg PO TIDWM 09/05/18 12/28/18 11/18/18 History Pantoprazole [Protonix TAB] 40 mg PO BID #60 tablet 10/03/18 12/28/18 10/16/18 20:00 Rx ISOSORBIDE MONOnitrate [Imdur ER] 30 mg PO QDAY #30 tablet 10/04/18 12/28/18 Unknown Rx Lisinopril [Zestril TAB] 5 mg PO DAILY #30 tablet 10/04/18 12/28/18 Unknown Rx cloNIDine [Catapres] 0.1 mg PO TID PRN 10/17/18 12/28/18 Unknown History Mupirocin [Bactroban 2% OINT] 1 applic TP TID #1 tube 10/29/18 12/28/18 Unknown Rx Clopidogrel [Plavix] 75 mg PO QDAY #30 tablet 11/28/18 12/28/18 Unknown Rx Clopidogrel [Plavix] 75 mg PO QDAY tablet 11/29/18 12/28/18 Unknown Rx oxyCODONE /ACETAMINOPHEN [Percocet 1 tab PO Q6H PRN #20 tablet 01/19/19 Unknown Rx 5/325 mg] Active Medications: Generic Name Dose Route Start Last Admin Trade Name Freq PRN Reason Stop Dose Admin Acetaminophen 650 mg 01/13/19 22:37 01/18/19 00:16 Tylenol PO 650 mg Q4H PRN Administration Pain MILD(1-3)/Fever >100.5/PEREZ Aspirin 81 mg 01/18/19 18:00 01/20/19 14:49 Halfprin Ec PO 81 mg QDAY CALIXTO Administration Clonidine HCl 0.1 mg 01/14/19 09:31 01/20/19 06:01 Catapres PO 0.1 mg TID PRN Administration Blood Pressure Clopidogrel Bisulfate 75 mg 01/14/19 10:00 01/20/19 14:50 Plavix PO 75 mg QDAY CALIXTO Administration Dextrose 50 ml 01/13/19 22:40 01/14/19 20:59 D50w (25gm) Syringe IV 50 ml PRN PRN Administration Hypoglycemia Enoxaparin Sodium 30 mg 01/14/19 10:00 01/20/19 14:50 Lovenox SUB-Q 30 mg QDAY CALIXTO Administration Insulin Human Lispro 0 unit 01/14/19 07:30 01/20/19 14:25 Humalog SUB-Q Not Given ACHS [facility] Protocol Isosorbide Mononitrate 30 mg 01/14/19 10:00 01/20/19 14:49 Imdur PO 30 mg DAILY CALIXTO Administration Lisinopril 5 mg 01/14/19 10:00 01/20/19 14:50 Zestril PO 5 mg DAILY CALIXTO Administration Mupirocin 1 applic 01/14/19 14:00 01/20/19 14:49 Bactroban 2% TP 1 applic TID CALIXTO Administration Ondansetron HCl 4 mg 01/13/19 22:37 Zofran IV Q8H PRN Nausea And Vomiting Oxycodone/Acetaminophen 1 tab 01/14/19 09:31 01/20/19 11:46 Percocet 5/325 PO 1 tab Q6H PRN Administration Pain, Moderate (4-6) Pantoprazole Sodium 40 mg 01/14/19 10:00 01/20/19 14:25 Protonix PO Not Given BID CALIXTO Sodium Chloride 10 ml 01/14/19 10:00 01/20/19 14:26 Sodium Chloride Flush Syringe 10 Ml IV Not Given BID CALIXTO Sodium Chloride 10 ml 01/13/19 22:37 01/17/19 05:27 Sodium Chloride Flush Syringe 10 Ml IV 10 ml PRN PRN Administration LINE FLUSH
[2019-01-21] MEDS: BACTROBAN 2% TP SCH ×3 (10:18→22:06)
[2019-01-21] MEDS: LOVENOX SUB-Q SCH (10:20)
[2019-01-21] MEDS: HALFPRIN EC PO SCH (10:21)
[2019-01-21] MEDS: PLAVIX PO SCH (10:21)
[2019-01-21] MEDS: IMDUR PO SCH (10:21)
[2019-01-21] MEDS: SODIUM CHLORIDE FLUSH SYRINGE 10 ML IV SCH ×2 (10:28→22:07)
[2019-01-21] MEDS: PROTONIX PO SCH ×2 (10:28→22:06)
[2019-01-21] MEDS: HumaLOG SUB-Q SCH ×4 (10:33→22:07)
--- NOTE | 2019-01-21 11:42 | Progress Note ---
Assessment and Plan Cultures: 01/13/19 Blood: No growth A/P: 68 year old woman with a past medical history of Hypertension, diabetes, ESRD, CAD PVD, Right lower extremity gangrene.Admitted with: 1. Sepsis on Admission: Worsening leukocytosis.. Etiology right great toe dry gangrene vs non healing foot ulcers vs ischemia. No fevers. Blood cultures in progress. Chest xary no consolidation. No other source of infection on exam. Likely Leukemoid reaction form tissue ischemia, gangrene and cellulitis. WIll order CRP, Procal and rpt CXR. 2. Right Toe Dry gangrene: s/p re-vascularization procedure 01/18/19. This toe is not viable, at some point it would need amputation. 3. Non healing right foot ulcers: 2 ulcers on the dorsum of the right foot. Superficial no drainage. 4. PVD with Right leg ischemia: s/p right leg endovasular revasuclarzation 11/2018. Arterial duplex shows stable moderate generalized atherosclerosis with a similar stenosis of the mid right SFA. s/p re-vascularization procedure 01/18/19 . 5. Sacral Wound - Stage 2 sacral pressure injury noted: superficial. Not infected. Continue wound care 6. Type 2 diabetes: recommend tight glycemic control 7. ESRD on HD: antibiotics renally adjusted. Nephrology following. Recommendations: - Continue wound care - Continue to monitor leukocytosis off antibiotics - Amputation was canceled and patient would be referred for HBO therapy. This toe looks not viable - CBC, CRP, Procal and Chest xray ordered [facility] M: [id number] O:[phone]. Subjective Date of service: 01/21/19 Principal diagnosis: PVD with gangrene Interval history: Patient seen and examined. Reports no acute distress or generalized weakness. No fevers. Objective - Exam Narrative Exam: Constitutional: Alert.. Awake. No acute distress Head, Ears, Nose: Normocephalic, atraumatic. External ears, nose normal Eyes: Conjunctivae/corneas clear. No icterus. No ptosis. Neck: Supple, no meningeal signs Oral: dentition poor. No thrush. oral mucosa moist Cardiovascular: S1, S2 normal. Respiratory: Good air entry, clear to auscultation bilaterally GI: Soft, non-tender; bowel sounds normal. No peritoneal signs Musculoskeletal: No pedal edema, no cyanosis. Skin: bilateral lower extremity with right toe dry gangrene. Bilateral lower extremity with dystrophic toenails. 2 superficial ulcerations on right dorsum. Right lower extremity tenderness. Hem/Lymphatic: No palpable cervical or supraclavicular nodes. No lymphangitis Psych: Mood ok. Neurological: Awake, alert, oriented. - Constitutional Vitals: Vital Signs Temp Pulse Resp BP Pulse Ox 97.9 F 121 H 18 164/87 97 01/21/19 11:04 01/21/19 11:04 01/21/19 11:04 01/21/19 11:04 01/21/19 11:04 Temperature -Last 24 Hours Temperature 97.9 F Temperature 97.9 F Temperature 98.0 F Temperature 98.0 F Temperature 98.0 F Temperature 98.0 F Temperature 99.0 F - Labs CBC & Chem 7: 01/19/19 09:37 01/18/19 12:30 Labs: Abnormal lab results 01/20/19 01/21/19 Range/Units 23:02 10:39 POC Glucose 198 H 272 H (70-105)
--- NOTE | 2019-01-21 16:55 | XRay Report ---
CHEST 1 VIEW INDICATION / CLINICAL INFORMATION: worsening leukocytosis. COMPARISON: 01/13/2019 FINDINGS: SUPPORT DEVICES: Vascular stents HEART / MEDIASTINUM: Heart size is at the upper limits of normal LUNGS / PLEURA: No significant pulmonary or pleural abnormality. No pneumothorax. ADDITIONAL FINDINGS: No significant additional findings. IMPRESSION: No acute disease or interval change from 01/13/2019. Signer Name: Jeff Guadalupe MD FACMandie Signed: 01/21/2019 4:51 PM Workstation Name: [id number]
--- NOTE | 2019-01-21 18:07 | Progress Note ---
Assessment and Plan - Patient Problems (1) Altered mental status Current Visit: Yes Status: Acute Qualifiers: Altered mental status type: unspecified Qualified Code(s): R41.82 - Altered mental status, unspecified Plan to address problem: Patient has dementia and poor cognition. Pleasant mood has been stable. Awaiting placement. (2) Dry gangrene Current Visit: Yes Status: Acute Plan to address problem: Shunt with severe PVD with gangrene right foot. Fifth and possible fourth digit nonviable. Will require surgery at some point. Plan was to have patient in skilled rehabilitation facility and observe until requiring amputation. Now with elevated leukocytosis no evidence of infection most likely etiology. ID following. off Antibiotics. (3) Peripheral vascular disease Current Visit: Yes Status: Acute Plan to address problem: Severe PVD. Status post revascularization in the past. Dry gangrene. (4) ESRD (end stage renal disease) on dialysis Current Visit: Yes Status: Chronic Plan to address problem: cont hemodialysis Tuesday and Tuesday. (5) Accelerated hypertension Current Visit: No Status: Acute Plan to address problem: Continue Zestril (6) Diabetes Current Visit: No Status: Acute Plan to address problem: With fair control would not be too aggressive at this point. Patient is not eating 100% now. History Interval history: Patient pleasantly confused. Patient family is in appeal about discharge. Does not want to go back to [facility] Hospitalist Physical - Constitutional Vitals: Temp Pulse Resp BP Pulse Ox 98.4 F 123 H 15 145/44 97 01/21/19 12:36 01/21/19 12:36 01/21/19 12:36 01/21/19 12:36 01/21/19 11:04 General appearance: Present: no acute distress, well-nourished - EENT Eyes: Present: PERRL, EOM intact ENT: hearing intact, clear oral mucosa - Neck Neck: Present: supple, normal ROM - Respiratory Respiratory effort: normal Respiratory: bilateral: CTA - Cardiovascular Rhythm: regular - Extremities Extremity abnormal: ulceration, pulses diminished, other (ischemic foot stage II sacral decubitus. Dry gangrene.) Peripheral Pulses: abnormal - Abdominal General gastrointestinal: soft, non-tender, non-distended, normal bowel sounds - Integumentary Integumentary: Present: clear, erythema - Psychiatric Psychiatric: other (poor judgment poor cognition. Generalized weakness.) Results - Labs CBC & Chem 7: 01/19/19 09:37 01/18/19 12:30 Labs: Laboratory Last Values WBC 21.8 K/mm3 (4.5-11.0) H 01/19/19 09:37 RBC 4.23 M/mm3 (3.65-5.03) 01/19/19 09:37 Hgb 10.7 gm/dl (10.1-14.3) 01/19/19 09:37 Hct 35.7 % (30.3-42.9) 01/19/19 09:37 MCV 84 fl (79-97) 01/19/19 09:37 MCH 25 pg (28-32) L 01/19/19 09:37 MCHC 30 % (30-34) 01/19/19 09:37 RDW 24.5 % (13.2-15.2) H 01/19/19 09:37 Plt Count 254 K/mm3 (140-440) 01/19/19 09:37 Lymph % (Auto) 2.3 % (13.4-35.0) L 01/17/19 00:42 [place] % (Auto) 6.4 % (0.0-7.3) 01/17/19 00:42 Eos % (Auto) 0.1 % (0.0-4.3) 01/17/19 00:42 Baso % (Auto) 1.2 % (0.0-1.8) 01/17/19 00:42 Lymph # 0.4 K/mm3 (1.2-5.4) L 01/17/19 00:42 [place] # 1.1 K/mm3 (0.0-0.8) H 01/17/19 00:42 Eos # 0.0 K/mm3 (0.0-0.4) 01/17/19 00:42 Baso # 0.2 K/mm3 (0.0-0.1) H 01/17/19 00:42 Add Manual Diff Complete 01/19/19 09:37 Total Counted 100 01/19/19 09:37 Seg Neutrophils % Assurance Senior Manager 01/19/19 09:37 Seg Neuts % (Manual) 94.0 % (40.0-70.0) H 01/19/19 09:37 0 % 01/19/19 09:37 4.0 % (13.4-35.0) L 01/19/19 09:37 Reactive Lymphs % (Man) 0 % 01/19/19 09:37 1.0 % (0.0-7.3) 01/19/19 09:37 1.0 % (0.0-4.3) 01/19/19 09:37 0 % (0.0-1.8) 01/19/19 09:37 0 % 01/19/19 09:37 0 % 01/19/19 09:37 0 % 01/19/19 09:37 0 % 01/19/19 09:37 Nucleated RBC % Not Reportable 01/19/19 09:37 Seg Neutrophils # 15.2 K/mm3 (1.8-7.7) H 01/17/19 00:42 Seg Neutrophils # Man 20.5 K/mm3 (1.8-7.7) H 01/19/19 09:37 Band Neutrophils # 0.0 K/mm3 01/19/19 09:37 0.9 K/mm3 (1.2-5.4) L 01/19/19 09:37 Abs React Lymphs (Man) 0.0 K/mm3 01/19/19 09:37 0.2 K/mm3 (0.0-0.8) 01/19/19 09:37 0.2 K/mm3 (0.0-0.4) 01/19/19 09:37 0.0 K/mm3 (0.0-0.1) 01/19/19 09:37 0.0 K/mm3 01/19/19 09:37 0.0 K/mm3 01/19/19 09:37 0.0 K/mm3 01/19/19 09:37 Blast Cells # 0.0 K/mm3 01/19/19 09:37 WBC Morphology Not Reportable 01/19/19 09:37 Hypersegmented Neuts Not Reportable 01/19/19 09:37 Hyposegmented Neuts Not Reportable 01/19/19 09:37 Hypogranular Neuts Not Reportable 01/19/19 09:37 Not Reportable 01/19/19 09:37 Not Reportable 01/19/19 09:37 Not Reportable 01/19/19 09:37 Not Reportable 01/19/19 09:37 Not Reportable 01/19/19 09:37 Not Reportable 01/19/19 09:37 Consistent w auto 01/19/19 09:37 Not Reportable 01/19/19 09:37 Plt Clumps, EDTA Not Reportable 01/19/19 09:37 Not Reportable 01/19/19 09:37 Not Reportable 01/19/19 09:37 Not Reportable 01/19/19 09:37 Plt Morphology Comment Not Reportable 01/19/19 09:37 RBC Morphology Not Reportable 01/19/19 09:37 Dimorphic RBCs Not Reportable 01/19/19 09:37 Not Reportable 01/19/19 09:37 1+ 01/19/19 09:37 Not Reportable 01/19/19 09:37 2+ 01/19/19 09:37 Not Reportable 01/19/19 09:37 Not Reportable 01/19/19 09:37 Not Reportable 01/19/19 09:37 Not Reportable 01/19/19 09:37 Not Reportable 01/19/19 09:37 Not Reportable 01/19/19 09:37 Not Reportable 01/19/19 09:37 Not Reportable 01/19/19 09:37 Not Reportable 01/19/19 09:37 Not Reportable 01/19/19 09:37 Not Reportable 01/19/19 09:37 Not Reportable 01/19/19 09:37 Not Reportable 01/19/19 09:37 Not Reportable 01/19/19 09:37 Not Reportable 01/19/19 09:37 Acanthocytes (Spur) Not Reportable 01/19/19 09:37 Rouleaux Not Reportable 01/19/19 09:37 Not Reportable 01/19/19 09:37 Not Reportable 01/19/19 09:37 Not Reportable 01/19/19 09:37 Not Reportable 01/19/19 09:37 Hem Pathologist Commnt No 01/19/19 09:37 PT 15.5 Sec. (12.2-14.9) H 01/13/19 17:42 INR 1.26 (0.87-1.13) H 01/13/19 17:42 APTT 50.0 Sec. (24.2-36.6) H 01/13/19 17:42 Sodium 141 mmol/L (137-145) 01/18/19 12:30 Potassium 3.2 mmol/L (3.6-5.0) L 01/18/19 12:30 Chloride 98.9 mmol/L (98-107) 01/18/19 12:30 Carbon Dioxide 26 mmol/L (22-30) 01/18/19 12:30 19 mmol/L 01/18/19 12:30 BUN 22 mg/dL (7-17) H 01/18/19 12:30 4.7 mg/dL (0.7-1.2) H 01/18/19 12:30 Estimated GFR 11 ml/min 01/18/19 12:30 5 % 01/18/19 12:30 Glucose 166 mg/dL (65-100) H 01/18/19 12:30 POC Glucose 193 (70-105) H 01/21/19 15:57 Lactic Acid 0.90 mmol/L (0.7-2.0) 01/13/19 17:54 Calcium 10.3 mg/dL (8.4-10.2) H 01/18/19 12:30 Magnesium 1.90 mg/dL (1.7-2.3) 01/13/19 17:54 0.50 mg/dL (0.1-1.2) 01/13/19 17:42 < 0.2 mg/dL (0-0.2) 01/13/19 17:42 0.3 mg/dL 01/13/19 17:42 AST 10 units/L (5-40) 01/13/19 17:42 ALT < 5 units/L (7-56) L 01/13/19 17:42 123 units/L (35-129) 01/13/19 17:42 73 units/L (30-135) 01/14/19 07:21 CK-MB (CK-2) 4.4 ng/mL (0.0-4.0) H 01/14/19 07:21 CK-MB (CK-2) Rel Index 6.0 (0-4) H 01/14/19 07:21 0.335 ng/mL (0.00-0.029) H* D 01/14/19 07:21 NT-Pro-B Natriuret Pep 24508 pg/mL (0-900) H 01/13/19 17:42 6.8 g/dL (6.3-8.2) 01/13/19 17:42 2.9 g/dL (3.9-5) L 01/13/19 17:42 0.7 % 01/13/19 17:42 Triglycerides 218 mg/dL (2-149) H 01/13/19 17:54 Cholesterol 130 mg/dL (50-199) 01/13/19 17:54 50 mg/dL (50-130) 01/13/19 17:54 37 mg/dL (40-59) L 01/13/19 17:54 3.51 % 01/13/19 17:54 TSH 3.000 mlU/mL (0.270-4.200) 01/13/19 17:42 Random Vancomycin 17.1 ug/mL (0-40.0) 01/20/19 03:50 Active Medications - Current Medications Current Medications: Generic Name Dose Route Start Last Admin Trade Name Freq PRN Reason Stop Dose Admin Acetaminophen 650 mg 01/13/19 22:37 01/18/19 00:16 Tylenol PO 650 mg Q4H PRN Administration Pain MILD(1-3)/Fever >100.5/PEREZ Aspirin 81 mg 01/18/19 18:00 01/21/19 10:21 Halfprin Ec PO 81 mg QDAY CALIXTO Administration Clonidine HCl 0.1 mg 01/14/19 09:31 01/20/19 06:01 Catapres PO 0.1 mg TID PRN Administration Blood Pressure Clopidogrel Bisulfate 75 mg 01/14/19 10:00 01/21/19 10:21 Plavix PO 75 mg QDAY CALIXTO Administration Dextrose 50 ml 01/13/19 22:40 01/14/19 20:59 D50w (25gm) Syringe IV 50 ml PRN PRN Administration Hypoglycemia Enoxaparin Sodium 30 mg 01/14/19 10:00 01/21/19 10:20 Lovenox SUB-Q 30 mg QDAY CALIXTO Administration Insulin Human Lispro 0 unit 01/14/19 07:30 01/21/19 17:23 Humalog SUB-Q 2 unit ACHS CALIXTO Administration Protocol Isosorbide Mononitrate 30 mg 01/14/19 10:00 01/21/19 10:21 Imdur PO 30 mg DAILY CALIXTO Administration Lisinopril 10 mg 01/22/19 10:00 Zestril PO QDAY CALIXTO Mupirocin 1 applic 01/14/19 14:00 01/21/19 17:24 Bactroban 2% TP 1 applic TID CALIXTO Administration Ondansetron HCl 4 mg 01/13/19 22:37 Zofran IV Q8H PRN Nausea And Vomiting Oxycodone/Acetaminophen 1 tab 01/14/19 09:31 01/20/19 11:46 Percocet 5/325 PO 1 tab Q6H PRN Administration Pain, Moderate (4-6) Pantoprazole Sodium 40 mg 01/14/19 10:00 01/21/19 10:28 Protonix PO 40 mg BID CALIXTO Administration Sodium Chloride 10 ml 01/14/19 10:00 01/21/19 10:28 Sodium Chloride Flush Syringe 10 Ml IV 10 ml BID CALIXTO Administration Sodium Chloride 10 ml 01/13/19 22:37 01/17/19 05:27 Sodium Chloride Flush Syringe 10 Ml IV 10 ml PRN PRN Administration LINE FLUSH Nutrition/Malnutrition Assess - Dietary Evaluation Nutrition/Malnutrition Findings: Nutrition Notes Start: 01/15/19 15:22 Freq: Status: Active Protocol: Document 01/19/19 15:32 RM (Rec: 01/19/19 15:37 RM [id number]) Nutrition Notes Initial or Follow up Reassessment Current Diagnosis Coronary Artery Disease, Diabetes,Hypertension Other Pertinent Diagnosis ESRD on HD (T/T/S), R foot wound w/gangrene, Sacral PU, PVD Current Diet Pureed,Cardiac/Consistent CHO w/Nepro 1 daily Labs/Tests Reviewed Pertinent Medications Reviewed Height 5 ft 2 in Weight 41.6 kg [place] Body Weight (kg) 50.00 BMI 16.7 Subjective/Other Information Pt stated that she eats bites of her meals but drinks the Nepro. Noted half drunk Nepro at bedside. Nurse confirmed that pt has been eating bites of meals and drinks Nepro. Percent of energy/protein needs met: 31%/37% Burn Absent Trauma Absent #1 Nutrition Diagnosis Malnutrition Diagnosis Progress(for reassessment Continues documentation) Is patient on ventilator? No Is Patient Ambulatory and/or Out of Bed No REE-([place] [facility]-confined to bed) 1073.316 Kcal/Kg value to use for calculation 33 Approximate Energy Requirements Using 1373 kcal/Kg Additional Notes Protein Needs: 51-64g (1.2-1. 5g/kg) Fluid Needs: 1 ml/kcal Nutrition Intervention Change Diet Order: Continue current Add Supplement/Snack (indicate name/kcal Nepro BID /protein ) Provides kCal: 850 Provides Protein (gm) 38 Goal #1 Meet at least 75% of calorie and protein needs via PO and ONS intakes Goal #2 Wt gain/maintenance Anticipated Discharge Needs: Cardiac/Consistent CHO diet Follow-Up By: 01/23/19 Additional Comments Follow for PO and ONS intakes
[2019-01-21] MEDS: SODIUM CHLORIDE FLUSH SYRINGE 10 ML IV PRN (22:07)
[2019-01-22 03:34] LABS: Basophils % (Auto) 0.2 % (0.0-1.8); Eosinophils # (Auto) 0.1 K/mm3 (0.0-0.4); Eosinophils % (Auto) 1.2 % (0.0-4.3); Hematocrit 34.1 % (30.3-42.9); Hemoglobin 10.6 gm/dl (10.1-14.3); Lymphocytes # (Auto) 0.5 K/mm3 (1.2-5.4); Lymphocytes % (Auto) 5.2 % (13.4-35.0); Mean Corpuscular HGB Conc 31 % (30-34); Mean Corpuscular Volume 83 fl (79-97); Monocytes # (Auto) 0.8 K/mm3 (0.0-0.8); Monocytes % (Auto) 8.3 % (0.0-7.3); Platelet Count 280 K/mm3 (140-440); Red Blood Count 4.13 M/mm3 (3.65-5.03)
[2019-01-22 04:00] LABS: Red Cell Distribution Width 23.4 % (13.2-15.2)
[2019-01-22] MEDS: HumaLOG SUB-Q SCH ×4 (09:02→21:46)
[2019-01-22] MEDS: BACTROBAN 2% TP SCH ×3 (09:03→21:46)
[2019-01-22] MEDS: PROTONIX PO SCH ×2 (09:25→21:45)
[2019-01-22] MEDS: ZESTRIL PO SCH (09:25)
[2019-01-22] MEDS: LOVENOX SUB-Q SCH (09:25)
[2019-01-22] MEDS: PLAVIX PO SCH (09:25)
[2019-01-22] MEDS: HALFPRIN EC PO SCH (09:26)
[2019-01-22] MEDS: IMDUR PO SCH (09:26)
--- NOTE | 2019-01-22 14:02 | Progress Note ---
Assessment and Plan Assessment and plan: Patient is 68 year old woman from [facility] with a history of Hypertension, DM type 2, ESRD on HD, CAD, PVD and right lower extremity with gangrene of the ankle status post recent re-vascularization,comes to [facility] ED because she was severely tachycardiac at Hemodialysis center. In the emergency room she was found to have gangrene of the right foot, started on vancomycin. * Previous angiogram result Impression: 1) Aortogram and right lower extremity angiography demonstrating multifocal 80-90% stenosis within the proximal and mid SFA with complete occlusion of the mid to distal SFA and reconstitution of the popliteal artery and distal SFA through collaterals. There is single vessel runoff to the foot throughout peroneal artery. 2) Attempted revascularization from both an antegrade and pedal approach as described without success. 3) The patient will need to be rescheduled for re-va scularization procedure on her right leg with anesthesia from both an antegrade and popliteal artery approach. Acute Right leg limb ischemia: Continue palvix, Vascular consulted. ?Ampuation. Woundcare consulted Dry gangrene: Per vascular Patient was seen in the office on 01/12/19 with plan for revascularization on 01/18/19. Patient had dry gangrene at the time, not wet gangrene. Patient is now in the hospital. If patient's clinical status improves, plan will be for further revascularization on 01/18/19 Type 2 IN: Conservative management Leukocytosis- No evidence of sepsis. Continue abx, consult ID Diabetic foot nonhealing ulcer: Vascular re-evaluation, ?need for amputation- surgery consulted Decubitus ulcer at least stage 2/3 poa: consulted Wound care, HTN: continue antihypertensives ESRD on Hemodialysis TTS: Nephrology is following, monitor bmp closely, renal diet Diabetes Mellitus type 2: continue insulin and keep blood glucose less than 160 Anemia of chronic disease: monitored cbc closely and was stable Severe Protien calorie Malnutrition, poa: Nuclear Physicist consulted PAD- Prox Superficial Femoral Artery associated with critical limb ischemia, see above: Vascular Surgeon is managing, s/p Re-vascularization procedure of her right leg 11/27/18 with good result. d/w Dr. Jones, Started on Plavix Chronic edema of left upper extremity: The patient has had multiple workup with no find is a student reason why. This also houses her AV graft. Poor prognosis Disposition: continue inpatient care, d/c back to [place] once Medicare appeal is completed follow up EKG for tachycardia History Interval history: Patient was seen and examined. Follow-up on current diagnosis of PAD. No overnight events reported to me. Patient denies any chest pain, shortness breath, nausea/vomiting or severe headaches. Imaging, nursing note, chart, labs and old chart reviewed. Discussed with patient. Hospitalist Physical - Physical exam Narrative exam: Gen: cachetic, chronic ill appearing, BMI 16.8, NAD, Awake, Alert, Orientated x 2 HEENT: NCAT, EOMI, PERRL, OP Clear Neck: supple, no adenopathy, no thyromegaly, no JVD CVS/Heart: irregular irregular, normal S1S2, pulses present bilaterally Chest/Lungs: CTA B, Symmetrical chest expansion, good air entry bilaterally GI/Abdomen: soft, NTND, good bowel sounds, no guarding or rebound /Bladder: no suprapubic tenderness, no CVA or paraspinal tenderness Extermity/Skin: right great toe necrotic, stage 2/3 sacral pressure ulcer, left heel DTI MSK: FROM x 4 Neuro: CN 2-12 grossly intact, no new focal deficits Psych: calm - Constitutional Vitals: Temp Pulse Resp BP Pulse Ox 97.9 F 71 18 138/78 91 01/22/19 11:16 01/22/19 11:16 01/22/19 11:16 01/22/19 11:16 01/22/19 11:16 General appearance: Present: no acute distress, cachectic. Absent: well- nourished Results - Labs CBC & Chem 7: 01/22/19 03:10 01/18/19 12:30 Labs: Laboratory Last Values WBC 10.0 K/mm3 (4.5-11.0) 01/22/19 03:10 RBC 4.13 M/mm3 (3.65-5.03) 01/22/19 03:10 Hgb 10.6 gm/dl (10.1-14.3) 01/22/19 03:10 Hct 34.1 % (30.3-42.9) 01/22/19 03:10 MCV 83 fl (79-97) 01/22/19 03:10 MCH 26 pg (28-32) L 01/22/19 03:10 MCHC 31 % (30-34) 01/22/19 03:10 RDW 23.4 % (13.2-15.2) H 01/22/19 03:10 Plt Count 280 K/mm3 (140-440) 01/22/19 03:10 Lymph % (Auto) 5.2 % (13.4-35.0) L 01/22/19 03:10 Lane % (Auto) 8.3 % (0.0-7.3) H 01/22/19 03:10 Eos % (Auto) 1.2 % (0.0-4.3) 01/22/19 03:10 Baso % (Auto) 0.2 % (0.0-1.8) 01/22/19 03:10 Lymph # 0.5 K/mm3 (1.2-5.4) L 01/22/19 03:10 Lane # 0.8 K/mm3 (0.0-0.8) 01/22/19 03:10 Eos # 0.1 K/mm3 (0.0-0.4) 01/22/19 03:10 Baso # 0.0 K/mm3 (0.0-0.1) 01/22/19 03:10 Add Manual Diff Complete 01/19/19 09:37 Total Counted 100 01/19/19 09:37 Seg Neutrophils % 85.1 % (40.0-70.0) H 01/22/19 03:10 Seg Neuts % (Manual) 94.0 % (40.0-70.0) H 01/19/19 09:37 0 % 01/19/19 09:37 4.0 % (13.4-35.0) L 01/19/19 09:37 Reactive Lymphs % (Man) 0 % 01/19/19 09:37 1.0 % (0.0-7.3) 01/19/19 09:37 1.0 % (0.0-4.3) 01/19/19 09:37 0 % (0.0-1.8) 01/19/19 09:37 0 % 01/19/19 09:37 0 % 01/19/19 09:37 0 % 01/19/19 09:37 0 % 01/19/19 09:37 Nucleated RBC % Not Reportable 01/19/19 09:37 Seg Neutrophils # 8.5 K/mm3 (1.8-7.7) H 01/22/19 03:10 Seg Neutrophils # Man 20.5 K/mm3 (1.8-7.7) H 01/19/19 09:37 Band Neutrophils # 0.0 K/mm3 01/19/19 09:37 0.9 K/mm3 (1.2-5.4) L 01/19/19 09:37 Abs React Lymphs (Man) 0.0 K/mm3 01/19/19 09:37 0.2 K/mm3 (0.0-0.8) 01/19/19 09:37 0.2 K/mm3 (0.0-0.4) 01/19/19 09:37 0.0 K/mm3 (0.0-0.1) 01/19/19 09:37 0.0 K/mm3 01/19/19 09:37 0.0 K/mm3 01/19/19 09:37 0.0 K/mm3 01/19/19 09:37 Blast Cells # 0.0 K/mm3 01/19/19 09:37 WBC Morphology Not Reportable 01/19/19 09:37 Hypersegmented Neuts Not Reportable 01/19/19 09:37 Hyposegmented Neuts Not Reportable 01/19/19 09:37 Hypogranular Neuts Not Reportable 01/19/19 09:37 Not Reportable 01/19/19 09:37 Not Reportable 01/19/19 09:37 Not Reportable 01/19/19 09:37 Not Reportable 01/19/19 09:37 Not Reportable 01/19/19 09:37 Not Reportable 01/19/19 09:37 Consistent w auto 01/19/19 09:37 Not Reportable 01/19/19 09:37 Plt Clumps, EDTA Not Reportable 01/19/19 09:37 Not Reportable 01/19/19 09:37 Not Reportable 01/19/19 09:37 Not Reportable 01/19/19 09:37 Plt Morphology Comment Not Reportable 01/19/19 09:37 RBC Morphology Not Reportable 01/19/19 09:37 Dimorphic RBCs Not Reportable 01/19/19 09:37 Not Reportable 01/19/19 09:37 1+ 08/30/19 09:37 Not Reportable 01/19/19 09:37 2+ 01/19/19 09:37 Not Reportable 01/19/19 09:37 Not Reportable 01/19/19 09:37 Not Reportable 01/19/19 09:37 Not Reportable 01/19/19 09:37 Not Reportable 01/19/19 09:37 Not Reportable 01/19/19 09:37 Not Reportable 01/19/19 09:37 Not Reportable 01/19/19 09:37 Not Reportable 01/19/19 09:37 Not Reportable 01/19/19 09:37 Not Reportable 01/19/19 09:37 Not Reportable 01/19/19 09:37 Not Reportable 01/19/19 09:37 Not Reportable 01/19/19 09:37 Not Reportable 01/19/19 09:37 Acanthocytes (Spur) Not Reportable 01/19/19 09:37 Rouleaux Not Reportable 01/19/19 09:37 Not Reportable 01/19/19 09:37 Not Reportable 01/19/19 09:37 Not Reportable 01/19/19 09:37 Not Reportable 01/19/19 09:37 Hem Pathologist Commnt No 01/19/19 09:37 PT 15.5 Sec. (12.2-14.9) H 01/13/19 17:42 INR 1.26 (0.87-1.13) H 01/13/19 17:42 APTT 50.0 Sec. (24.2-36.6) H 01/13/19 17:42 Sodium 141 mmol/L (137-145) 01/18/19 12:30 Potassium 3.2 mmol/L (3.6-5.0) L 01/18/19 12:30 Chloride 98.9 mmol/L (98-107) 01/18/19 12:30 Carbon Dioxide 26 mmol/L (22-30) 01/18/19 12:30 19 mmol/L 01/18/19 12:30 BUN 22 mg/dL (7-17) H 01/18/19 12:30 4.7 mg/dL (0.7-1.2) H 01/18/19 12:30 Estimated GFR 11 ml/min 01/18/19 12:30 5 % 01/18/19 12:30 Glucose 166 mg/dL (65-100) H 01/18/19 12:30 POC Glucose 194 (70-105) H 01/22/19 11:20 Lactic Acid 0.90 mmol/L (0.7-2.0) 01/13/19 17:54 Calcium 10.3 mg/dL (8.4-10.2) H 01/18/19 12:30 Magnesium 1.90 mg/dL (1.7-2.3) 01/13/19 17:54 0.50 mg/dL (0.1-1.2) 01/13/19 17:42 < 0.2 mg/dL (0-0.2) 01/13/19 17:42 0.3 mg/dL 01/13/19 17:42 AST 10 units/L (5-40) 01/13/19 17:42 ALT < 5 units/L (7-56) L 01/13/19 17:42 123 units/L (35-129) 01/13/19 17:42 73 units/L (30-135) 01/14/19 07:21 CK-MB (CK-2) 4.4 ng/mL (0.0-4.0) H 01/14/19 07:21 CK-MB (CK-2) Rel Index 6.0 (0-4) H 01/14/19 07:21 0.335 ng/mL (0.00-0.029) H* D 01/14/19 07:21 11.20 mg/dL (0.00-1.30) H 01/22/19 03:10 NT-Pro-B Natriuret Pep 52303 pg/mL (0-900) H 01/13/19 17:42 6.8 g/dL (6.3-8.2) 01/13/19 17:42 2.9 g/dL (3.9-5) L 01/13/19 17:42 0.7 % 01/13/19 17:42 Triglycerides 218 mg/dL (2-149) H 01/13/19 17:54 Cholesterol 130 mg/dL (50-199) 01/13/19 17:54 50 mg/dL (50-130) 01/13/19 17:54 37 mg/dL (40-59) L 01/13/19 17:54 3.51 % 01/13/19 17:54 TSH 3.000 mlU/mL (0.270-4.200) 01/13/19 17:42 Random Vancomycin 17.1 ug/mL (0-40.0) 01/20/19 03:50 Active Medications - Current Medications Current Medications: Generic Name Dose Route Start Last Admin Trade Name Freq PRN Reason Stop Dose Admin Acetaminophen 650 mg 01/13/19 22:37 01/18/19 00:16 Tylenol PO 650 mg Q4H PRN Administration Pain MILD(1-3)/Fever >100.5/PEREZ Aspirin 81 mg 01/18/19 18:00 01/22/19 09:26 Halfprin Ec PO 81 mg QDAY CALIXTO Administration Clonidine HCl 0.1 mg 01/14/19 09:31 01/20/19 06:01 Catapres PO 0.1 mg TID PRN Administration Blood Pressure Clopidogrel Bisulfate 75 mg 01/14/19 10:00 01/22/19 09:25 Plavix PO 75 mg QDAY CALIXTO Administration Dextrose 50 ml 01/13/19 22:40 01/14/19 20:59 D50w (25gm) Syringe IV 50 ml PRN PRN Administration Hypoglycemia Enoxaparin Sodium 30 mg 01/14/19 10:00 01/22/19 09:25 Lovenox SUB-Q 30 mg QDAY CALIXTO Administration Insulin Human Lispro 0 unit 01/14/19 07:30 01/22/19 09:02 Humalog SUB-Q 2 unit ACHS CALIXTO Administration Protocol Isosorbide Mononitrate 30 mg 01/14/19 10:00 01/22/19 09:26 Imdur PO 30 mg DAILY CALIXTO Administration Lisinopril 10 mg 01/22/19 10:00 01/22/19 09:25 Zestril PO 10 mg QDAY CALIXTO Administration Mupirocin 1 applic 01/14/19 14:00 01/22/19 09:03 Bactroban 2% TP 1 applic TID CALIXTO Administration Ondansetron HCl 4 mg 01/13/19 22:37 Zofran IV Q8H PRN Nausea And Vomiting Oxycodone/Acetaminophen 1 tab 01/14/19 09:31 01/20/19 11:46 Percocet 5/325 PO 1 tab Q6H PRN Administration Pain, Moderate (4-6) Pantoprazole Sodium 40 mg 01/14/19 10:00 01/22/19 09:25 Protonix PO 40 mg BID CALIXTO Administration Sodium Chloride 10 ml 01/14/19 10:00 01/21/19 22:07 Sodium Chloride Flush Syringe 10 Ml IV 10 ml BID CALIXTO Administration Sodium Chloride 10 ml 01/13/19 22:37 01/21/19 22:07 Sodium Chloride Flush Syringe 10 Ml IV 10 ml PRN PRN Administration LINE FLUSH Nutrition/Malnutrition Assess - Dietary Evaluation Nutrition/Malnutrition Findings: Nutrition Notes Start: 01/15/19 15:22 Freq: Status: Active Protocol: Document 01/19/19 15:32 RM (Rec: 01/19/19 15:37 RM [id number]) Nutrition Notes Initial or Follow up Reassessment Current Diagnosis Coronary Artery Disease, Diabetes,Hypertension Other Pertinent Diagnosis ESRD on HD (T/T/S), R foot wound w/gangrene, Sacral PU, PVD Current Diet Pureed,Cardiac/Consistent CHO w/Nepro 1 daily Labs/Tests Reviewed Pertinent Medications Reviewed Height 5 ft 2 in Weight 41.6 kg [place] Body Weight (kg) 50.00 BMI 16.7 Subjective/Other Information Pt stated that she eats bites of her meals but drinks the Nepro. Noted half drunk Nepro at bedside. Nurse confirmed that pt has been eating bites of meals and drinks Nepro. Percent of energy/protein needs met: 31%/37% Burn Absent Trauma Absent #1 Nutrition Diagnosis Malnutrition Diagnosis Progress(for reassessment Continues documentation) Is patient on ventilator? No Is Patient Ambulatory and/or Out of Bed No REE-([facility]-confined to bed) 1073.316 Kcal/Kg value to use for calculation 33 Approximate Energy Requirements Using 1373 kcal/Kg Additional Notes Protein Needs: 51-64g (1.2-1. 5g/kg) Fluid Needs: 1 ml/kcal Nutrition Intervention Change Diet Order: Continue current Add Supplement/Snack (indicate name/kcal Nepro BID /protein ) Provides kCal: 850 Provides Protein (gm) 38 Goal #1 Meet at least 75% of calorie and protein needs via PO and ONS intakes Goal #2 Wt gain/maintenance Anticipated Discharge Needs: Cardiac/Consistent CHO diet Follow-Up By: 01/23/19 Additional Comments Follow for PO and ONS intakes
[2019-01-22] MEDS: ZOFRAN IV PRN (15:12)
[2019-01-22] MEDS: PERCOCET 5/325 PO PRN (15:13)
[2019-01-22] MEDS: SODIUM CHLORIDE FLUSH SYRINGE 10 ML IV SCH ×2 (15:13→21:46)
--- NOTE | 2019-01-22 16:19 | Progress Note ---
Assessment and Plan 68 year old female with ESRD and overall poor health with decline. Has LUE swelling. Will ultimately need fistulogram with angioplasty. Has right 1st digit gangrene. Will need amputation. Appreciate Dr. Aden's assistance. Has 2 vessel runoff. Despite 2 vessel runoff, may not heal due to poor nutrition status and ESRD. If does not heal, may need AKA as patient does not ambulate. Consider nutrition consult. Subjective Date of service: 01/22/19 Principal diagnosis: PVD with gangrene Interval history: Patient is confused. Has pain associated with the ulcers on the dorsum of her right foot and her 1st digit. BMI low. Objective - Constitutional Vitals: Vital Signs - 12hr 01/22/19 01/22/19 01/22/19 04:31 08:17 09:25 Temperature 98.0 F 99.8 F H Pulse Rate 108 H 113 H 117 H Respiratory 18 18 Rate Blood Pressure 147/46 192/106 192/106 O2 Sat by Pulse 98 95 Oximetry 01/22/19 01/22/19 01/22/19 09:26 10:00 11:16 Temperature 97.9 F Pulse Rate 117 H 71 Respiratory 18 18 Rate Blood Pressure 192/106 138/78 O2 Sat by Pulse 91 Oximetry 01/22/19 01/22/19 15:13 15:47 Temperature 99.0 F Pulse Rate 118 H Respiratory 20 18 Rate Blood Pressure 119/63 O2 Sat by Pulse 100 Oximetry General appearance: Present: other (mild AMS) - EENT Eyes: EOM intact ENT: hearing intact - Respiratory Respiratory effort: normal Extremities: abnormal (right 1st digit gangrene, ulcers on dorsum of foot, in booties, right foot bandaged) - Psychiatric Psychiatric: cooperative - Labs CBC & Chem 7: 01/22/19 03:10 01/18/19 12:30 Labs: Abnormal lab results 01/21/19 01/21/19 01/22/19 Range/Units 15:57 22:00 03:10 MCH 26 L (28-32) pg RDW 23.4 H (13.2-15.2) % Lymph % (Auto) 5.2 L (13.4-35.0) % [place] % (Auto) 8.3 H (0.0-7.3) % Lymph # 0.5 L (1.2-5.4) K/mm3 Seg Neutrophils % 85.1 H (40.0-70.0) % Seg Neutrophils # 8.5 H (1.8-7.7) K/mm3 POC Glucose 193 H 207 H (70-105) C-Reactive Protein (0.00-1.30) mg/dL 01/22/19 01/22/19 01/22/19 Range/Units 03:10 08:26 11:20 MCH (28-32) pg RDW (13.2-15.2) % Lymph % (Auto) (13.4-35.0) % [place] % (Auto) (0.0-7.3) % Lymph # (1.2-5.4) K/mm3 Seg Neutrophils % (40.0-70.0) % Seg Neutrophils # (1.8-7.7) K/mm3 POC Glucose 180 H 194 H (70-105) C-Reactive Protein 11.20 H (0.00-1.30) mg/dL Medications & Allergies - Medications Allergies/Adverse Reactions: Allergies erythromycin base [Erythromycin Base] Allergy (Verified 10/26/18 18:04) Rash PATIENT ASK ME TO REMOVEDMED ON ALLERGY LIST. Home Medications: Home Medications Medication Instructions Recorded Confirmed Last Taken Type Ferric Citrate (Nf) [Auryxia] 630 mg PO TIDWM 09/05/18 12/28/18 11/18/18 History Pantoprazole [Protonix TAB] 40 mg PO BID #60 tablet 10/03/18 12/28/18 10/16/18 20:00 Rx ISOSORBIDE MONOnitrate [Imdur ER] 30 mg PO QDAY #30 tablet 10/04/18 12/28/18 Unknown Rx Lisinopril [Zestril TAB] 5 mg PO DAILY #30 tablet 10/04/18 12/28/18 Unknown Rx cloNIDine [Catapres] 0.1 mg PO TID PRN 10/17/18 12/28/18 Unknown History Mupirocin [Bactroban 2% OINT] 1 applic TP TID #1 tube 10/29/18 12/28/18 Unknown Rx Clopidogrel [Plavix] 75 mg PO QDAY #30 tablet 11/28/18 12/28/18 Unknown Rx Clopidogrel [Plavix] 75 mg PO QDAY tablet 11/29/18 12/28/18 Unknown Rx oxyCODONE /ACETAMINOPHEN [Percocet 1 tab PO Q6H PRN #20 tablet 01/19/19 Unknown Rx 5/325 mg] Active Medications: Generic Name Dose Route Start Last Admin Trade Name Freq PRN Reason Stop Dose Admin Acetaminophen 650 mg 01/13/19 22:37 01/18/19 00:16 Tylenol PO 650 mg Q4H PRN Administration Pain MILD(1-3)/Fever >100.5/PEREZ Aspirin 81 mg 01/18/19 18:00 01/22/19 09:26 Halfprin Ec PO 81 mg QDAY CALIXTO Administration Clonidine HCl 0.1 mg 01/14/19 09:31 01/20/19 06:01 Catapres PO 0.1 mg TID PRN Administration Blood Pressure Clopidogrel Bisulfate 75 mg 01/14/19 10:00 01/22/19 09:25 Plavix PO 75 mg QDAY CALIXTO Administration Dextrose 50 ml 01/13/19 22:40 01/14/19 20:59 D50w (25gm) Syringe IV 50 ml PRN PRN Administration Hypoglycemia Enoxaparin Sodium 30 mg 01/14/19 10:00 01/22/19 09:25 Lovenox SUB-Q 30 mg QDAY CALIXTO Administration Insulin Human Lispro 0 unit 01/14/19 07:30 01/22/19 11:30 Humalog SUB-Q 2 unit ACHS CALIXTO Administration Protocol Isosorbide Mononitrate 30 mg 01/14/19 10:00 01/22/19 09:26 Imdur PO 30 mg DAILY CALIXTO Administration Lisinopril 10 mg 01/22/19 10:00 01/22/19 09:25 Zestril PO 10 mg QDAY CALIXTO Administration Mupirocin 1 applic 01/14/19 14:00 01/22/19 14:00 Bactroban 2% TP 1 applic TID CALIXTO Administration Ondansetron HCl 4 mg 01/13/19 22:37 01/22/19 15:12 Zofran IV 4 mg Q8H PRN Administration Nausea And Vomiting Oxycodone/Acetaminophen 1 tab 01/14/19 09:31 01/22/19 15:13 Percocet 5/325 PO 1 tab Q6H PRN Administration Pain, Moderate (4-6) Pantoprazole Sodium 40 mg 01/14/19 10:00 09/02/19 09:25 Protonix PO 40 mg BID CALIXTO Administration Sodium Chloride 10 ml 01/14/19 10:00 01/22/19 15:13 Sodium Chloride Flush Syringe 10 Ml IV 10 ml BID CALIXTO Administration Sodium Chloride 10 ml 01/13/19 22:37 01/21/19 22:07 Sodium Chloride Flush Syringe 10 Ml IV 10 ml PRN PRN Administration LINE FLUSH
[2019-01-22] MEDS: D50W (25GM) Syringe IV PRN (21:42)
[2019-01-23] MEDS: PERCOCET 5/325 PO PRN ×2 (01:30→21:04)
[2019-01-23 07:45] LABS: Calcium 9.7 mg/dL (8.4-10.2)
--- NOTE | 2019-01-23 08:18 | Progress Note ---
Assessment and Plan Assessment and plan: Patient is 68 year old woman from [facility] with a history of Hypertension, DM type 2, ESRD on HD, CAD, PVD and right lower extremity with gangrene of the ankle status post recent re-vascularization,comes to [facility] ED because she was severely tachycardiac at Hemodialysis center. In the emergency room she was found to have gangrene of the right foot, started on vancomycin. * Previous angiogram result Impression: 1) Aortogram and right lower extremity angiography demonstrating multifocal 80-90% stenosis within the proximal and mid SFA with complete occlusion of the mid to distal SFA and reconstitution of the popliteal artery and distal SFA through collaterals. There is single vessel runoff to the foot throughout peroneal artery. 2) Attempted revascularization from both an antegrade and pedal approach as described without success. 3) The patient will need to be rescheduled for re-va scularization procedure on her right leg with anesthesia from both an antegrade and popliteal artery approach. Acute Right leg limb ischemia: Patient was on palvix, Vascular consulted. Has 2 vessel runoff. Despite 2 vessel runoff, may not heal due to poor nutrition status and ESRD per vascular, discussed with Surgery, amputation planned MOVED TO TOMORROW . Woundcare consulted Dry gangrene: Per vascular Patient was seen in the office on 01/12/19 with plan for revascularization on 01/18/19. Patient had dry gangrene at the time, not wet gangrene. Patient is now in the hospital. If patient's clinical status improves, plan will be for further revascularization on 01/18/19 Amputation planned for today Type 2 DE: Conservative management Leukocytosis- No evidence of sepsis. Continue abx, consult ID Diabetic foot nonhealing ulcer: Vascular re-evaluation, ?need for amputation- surgery consulted- Ampuatation as mentioned above Decubitus ulcer at least stage 2/3 poa: consulted Wound care, HTN: continue antihypertensives ESRD on Hemodialysis TTS: Nephrology is following, monitor bmp closely, renal diet Diabetes Mellitus type 2: continue insulin and keep blood glucose less than 160 Anemia of chronic disease: monitored cbc closely and was stable Severe Protien calorie Malnutrition, poa: [employer] consulted PAD- Prox Superficial Femoral Artery associated with critical limb ischemia, see above: Vascular Surgeon is managing, s/p Re-vascularization procedure of her right leg 11/27/18 with good result. d/w Dr. Jones, Started on Plavix Chronic edema of left upper extremity: The patient has had multiple workup with no find is a student reason why. This also houses her AV graft. Poor prognosis History Interval history: Patient was seen and examined. Follow-up on current diagnosis of PAD. No overnight events reported to me. Patient denies any chest pain, shortness breath, nausea/vomiting or severe headaches. Imaging, nursing note, chart, labs and old chart reviewed. Discussed with patient. Amputation planned for today Hospitalist Physical - Physical exam Narrative exam: Gen: cachetic, chronic ill appearing, BMI 16.8, NAD, Awake, Alert, Orientated x 2, IN DIALYSIS HEENT: NCAT, EOMI, PERRL, OP Clear Neck: supple, no adenopathy, no thyromegaly, no JVD CVS/Heart: irregular irregular, normal S1S2, pulses present bilaterally Chest/Lungs: CTA B, Symmetrical chest expansion, good air entry bilaterally GI/Abdomen: soft, NTND, good bowel sounds, no guarding or rebound /Bladder: no suprapubic tenderness, no CVA or paraspinal tenderness Extermity/Skin: right great toe necrotic, stage 2/3 sacral pressure ulcer, left heel DTI MSK: FROM x 4 Neuro: CN 2-12 grossly intact, no new focal deficits Psych: calm - Constitutional Vitals: Temp Pulse Resp BP Pulse Ox 98.0 F 107 H 18 125/65 99 01/23/19 03:51 01/23/19 03:51 01/23/19 03:51 01/23/19 03:51 01/23/19 03:51 General appearance: Present: other (mild AMS) Results - Labs CBC & Chem 7: 01/24/19 00:56 01/24/19 05:59 Labs: Laboratory Last Values WBC 10.0 K/mm3 (4.5-11.0) 01/22/19 03:10 RBC 4.13 M/mm3 (3.65-5.03) 01/22/19 03:10 Hgb 10.6 gm/dl (10.1-14.3) 01/22/19 03:10 Hct 34.1 % (30.3-42.9) 01/22/19 03:10 MCV 83 fl (79-97) 01/22/19 03:10 MCH 26 pg (28-32) L 01/22/19 03:10 MCHC 31 % (30-34) 01/22/19 03:10 RDW 23.4 % (13.2-15.2) H 01/22/19 03:10 Plt Count 280 K/mm3 (140-440) 01/22/19 03:10 Lymph % (Auto) 5.2 % (13.4-35.0) L 01/22/19 03:10 [place] % (Auto) 8.3 % (0.0-7.3) H 01/22/19 03:10 Eos % (Auto) 1.2 % (0.0-4.3) 01/22/19 03:10 Baso % (Auto) 0.2 % (0.0-1.8) 01/22/19 03:10 Lymph # 0.5 K/mm3 (1.2-5.4) L 01/22/19 03:10 [place] # 0.8 K/mm3 (0.0-0.8) 01/22/19 03:10 Eos # 0.1 K/mm3 (0.0-0.4) 01/22/19 03:10 Baso # 0.0 K/mm3 (0.0-0.1) 01/22/19 03:10 Add Manual Diff Complete 01/19/19 09:37 Total Counted 100 01/19/19 09:37 Seg Neutrophils % 85.1 % (40.0-70.0) H 01/22/19 03:10 Seg Neuts % (Manual) 94.0 % (40.0-70.0) H 01/19/19 09:37 0 % 01/19/19 09:37 4.0 % (13.4-35.0) L 01/19/19 09:37 Reactive Lymphs % (Man) 0 % 01/19/19 09:37 1.0 % (0.0-7.3) 01/19/19 09:37 1.0 % (0.0-4.3) 01/19/19 09:37 0 % (0.0-1.8) 01/19/19 09:37 0 % 01/19/19 09:37 0 % 01/19/19 09:37 0 % 01/19/19 09:37 0 % 01/19/19 09:37 Nucleated RBC % Not Reportable 01/19/19 09:37 Seg Neutrophils # 8.5 K/mm3 (1.8-7.7) H 01/22/19 03:10 Seg Neutrophils # Man 20.5 K/mm3 (1.8-7.7) H 01/19/19 09:37 Band Neutrophils # 0.0 K/mm3 01/19/19 09:37 0.9 K/mm3 (1.2-5.4) L 01/19/19 09:37 Abs React Lymphs (Man) 0.0 K/mm3 01/19/19 09:37 0.2 K/mm3 (0.0-0.8) 01/19/19 09:37 0.2 K/mm3 (0.0-0.4) 01/19/19 09:37 0.0 K/mm3 (0.0-0.1) 01/19/19 09:37 0.0 K/mm3 01/19/19 09:37 0.0 K/mm3 01/19/19 09:37 0.0 K/mm3 01/19/19 09:37 Blast Cells # 0.0 K/mm3 01/19/19 09:37 WBC Morphology Not Reportable 01/19/19 09:37 Hypersegmented Neuts Not Reportable 01/19/19 09:37 Hyposegmented Neuts Not Reportable 01/19/19 09:37 Hypogranular Neuts Not Reportable 01/19/19 09:37 Not Reportable 01/19/19 09:37 Not Reportable 01/19/19 09:37 Not Reportable 01/19/19 09:37 Not Reportable 01/19/19 09:37 Not Reportable 01/19/19 09:37 Not Reportable 01/19/19 09:37 Consistent w auto 01/19/19 09:37 Not Reportable 01/19/19 09:37 Plt Clumps, EDTA Not Reportable 01/19/19 09:37 Not Reportable 01/19/19 09:37 Not Reportable 01/19/19 09:37 Not Reportable 01/19/19 09:37 Plt Morphology Comment Not Reportable 01/19/19 09:37 RBC Morphology Not Reportable 01/19/19 09:37 Dimorphic RBCs Not Reportable 01/19/19 09:37 Not Reportable 01/19/19 09:37 1+ 01/19/19 09:37 Not Reportable 01/19/19 09:37 2+ 01/19/19 09:37 Not Reportable 01/19/19 09:37 Not Reportable 01/19/19 09:37 Not Reportable 01/19/19 09:37 Not Reportable 01/19/19 09:37 Not Reportable 01/19/19 09:37 Not Reportable 01/19/19 09:37 Not Reportable 01/19/19 09:37 Not Reportable 01/19/19 09:37 Not Reportable 01/19/19 09:37 Not Reportable 01/19/19 09:37 Not Reportable 01/19/19 09:37 Not Reportable 01/19/19 09:37 Not Reportable 01/19/19 09:37 Not Reportable 01/19/19 09:37 Not Reportable 01/19/19 09:37 Acanthocytes (Spur) Not Reportable 01/19/19 09:37 Rouleaux Not Reportable 01/19/19 09:37 Not Reportable 01/19/19 09:37 Not Reportable 01/19/19 09:37 Not Reportable 01/19/19 09:37 Not Reportable 01/19/19 09:37 Hem Pathologist Commnt No 01/19/19 09:37 PT 15.5 Sec. (12.2-14.9) H 01/13/19 17:42 INR 1.26 (0.87-1.13) H 01/13/19 17:42 APTT 50.0 Sec. (24.2-36.6) H 01/13/19 17:42 Sodium 137 mmol/L (137-145) 01/23/19 06:53 Potassium 4.2 mmol/L (3.6-5.0) D 01/23/19 06:53 Chloride 96.8 mmol/L (98-107) L 01/23/19 06:53 Carbon Dioxide 29 mmol/L (22-30) 01/23/19 06:53 15 mmol/L 01/23/19 06:53 BUN 33 mg/dL (7-17) H 01/23/19 06:53 5.0 mg/dL (0.7-1.2) H 01/23/19 06:53 Estimated GFR 10 ml/min 01/23/19 06:53 7 % 01/23/19 06:53 Glucose 193 mg/dL (65-100) H 01/23/19 06:53 POC Glucose 171 (70-105) H 01/22/19 22:20 Lactic Acid 0.90 mmol/L (0.7-2.0) 01/13/19 17:54 Calcium 9.7 mg/dL (8.4-10.2) 01/23/19 06:53 Magnesium 1.90 mg/dL (1.7-2.3) 01/13/19 17:54 0.50 mg/dL (0.1-1.2) 01/13/19 17:42 < 0.2 mg/dL (0-0.2) 01/13/19 17:42 0.3 mg/dL 01/13/19 17:42 AST 10 units/L (5-40) 01/13/19 17:42 ALT < 5 units/L (7-56) L 01/13/19 17:42 123 units/L (35-129) 01/13/19 17:42 73 units/L (30-135) 01/14/19 07:21 CK-MB (CK-2) 4.4 ng/mL (0.0-4.0) H 01/14/19 07:21 CK-MB (CK-2) Rel Index 6.0 (0-4) H 01/14/19 07:21 0.335 ng/mL (0.00-0.029) H* D 01/14/19 07:21 11.20 mg/dL (0.00-1.30) H 01/22/19 03:10 NT-Pro-B Natriuret Pep 23358 pg/mL (0-900) H 01/13/19 17:42 6.8 g/dL (6.3-8.2) 01/13/19 17:42 2.9 g/dL (3.9-5) L 01/13/19 17:42 0.7 % 01/13/19 17:42 Triglycerides 218 mg/dL (2-149) H 01/13/19 17:54 Cholesterol 130 mg/dL (50-199) 01/13/19 17:54 50 mg/dL (50-130) 01/13/19 17:54 37 mg/dL (40-59) L 01/13/19 17:54 3.51 % 01/13/19 17:54 TSH 3.000 mlU/mL (0.270-4.200) 01/13/19 17:42 Random Vancomycin 17.1 ug/mL (0-40.0) 01/20/19 03:50 Active Medications - Current Medications Current Medications: Generic Name Dose Route Start Last Admin Trade Name Freq PRN Reason Stop Dose Admin Acetaminophen 650 mg 01/13/19 22:37 01/18/19 00:16 Tylenol PO 650 mg Q4H PRN Administration Pain MILD(1-3)/Fever >100.5/PEREZ Aspirin 81 mg 01/18/19 18:00 01/22/19 09:26 Halfprin Ec PO 81 mg QDAY CALIXTO Administration Clonidine HCl 0.1 mg 01/14/19 09:31 01/20/19 06:01 Catapres PO 0.1 mg TID PRN Administration Blood Pressure Clopidogrel Bisulfate 75 mg 01/14/19 10:00 01/22/19 09:25 Plavix PO 75 mg QDAY CALIXTO Administration Dextrose 50 ml 01/13/19 22:40 01/22/19 21:42 D50w (25gm) Syringe IV 50 ml PRN PRN Administration Hypoglycemia Enoxaparin Sodium 30 mg 01/14/19 10:00 01/22/19 09:25 Lovenox SUB-Q 30 mg QDAY CALIXTO Administration Insulin Human Lispro 0 unit 01/14/19 07:30 01/22/19 21:46 Humalog SUB-Q Not Given [facility] Protocol Isosorbide Mononitrate 30 mg 01/14/19 10:00 01/22/19 09:26 Imdur PO 30 mg DAILY CALIXTO Administration Lisinopril 10 mg 01/22/19 10:00 01/22/19 09:25 Zestril PO 10 mg QDAY CALIXTO Administration Mupirocin 1 applic 01/14/19 14:00 01/22/19 21:46 Bactroban 2% TP 1 applic TID CALIXTO Administration Ondansetron HCl 4 mg 01/13/19 22:37 01/22/19 15:12 Zofran IV 4 mg Q8H PRN Administration Nausea And Vomiting Oxycodone/Acetaminophen 1 tab 01/14/19 09:31 01/23/19 01:30 Percocet 5/325 PO 1 tab Q6H PRN Administration Pain, Moderate (4-6) Pantoprazole Sodium 40 mg 01/14/19 10:00 01/22/19 21:45 Protonix PO 40 mg BID CALIXTO Administration Sodium Chloride 10 ml 01/14/19 10:00 01/22/19 21:46 Sodium Chloride Flush Syringe 10 Ml IV 10 ml BID CALIXTO Administration Sodium Chloride 10 ml 01/13/19 22:37 01/21/19 22:07 Sodium Chloride Flush Syringe 10 Ml IV 10 ml PRN PRN Administration LINE FLUSH Nutrition/Malnutrition Assess - Dietary Evaluation Nutrition/Malnutrition Findings: Nutrition Notes Start: 01/15/19 15:22 Freq: Status: Active Protocol: Document 01/19/19 15:32 RM (Rec: 01/19/19 15:37 RM [id number]) Nutrition Notes Initial or Follow up Reassessment Current Diagnosis Coronary Artery Disease, Diabetes,Hypertension Other Pertinent Diagnosis ESRD on HD (T/T/S), R foot wound w/gangrene, Sacral PU, PVD Current Diet Pureed,Cardiac/Consistent CHO w/Nepro 1 daily Labs/Tests Reviewed Pertinent Medications Reviewed Height 5 ft 2 in Weight 41.6 kg [place] Body Weight (kg) 50.00 BMI 16.7 Subjective/Other Information Pt stated that she eats bites of her meals but drinks the Nepro. Noted half drunk Nepro at bedside. Nurse confirmed that pt has been eating bites of meals and drinks Nepro. Percent of energy/protein needs met: 31%/37% Burn Absent Trauma Absent #1 Nutrition Diagnosis Malnutrition Diagnosis Progress(for reassessment Continues documentation) Is patient on ventilator? No Is Patient Ambulatory and/or Out of Bed No REE-([facility]-confined to bed) 1073.316 Kcal/Kg value to use for calculation 33 Approximate Energy Requirements Using 1373 kcal/Kg Additional Notes Protein Needs: 51-64g (1.2-1. 5g/kg) Fluid Needs: 1 ml/kcal Nutrition Intervention Change Diet Order: Continue current Add Supplement/Snack (indicate name/kcal Nepro BID /protein ) Provides kCal: 850 Provides Protein (gm) 38 Goal #1 Meet at least 75% of calorie and protein needs via PO and ONS intakes Goal #2 Wt gain/maintenance Anticipated Discharge Needs: Cardiac/Consistent CHO diet Follow-Up By: 01/23/19 Additional Comments Follow for PO and ONS intakes
--- NOTE | 2019-01-23 09:43 | Progress Note ---
Assessment and Plan Cultures: 01/13/19 Blood: No growth A/P: 68 year old woman with a past medical history of Hypertension, diabetes, ESRD, CAD PVD, Right lower extremity gangrene.Admitted with: 1. Sepsis on Admission: Resolved. Etiology right great toe dry gangrene vs non healing foot ulcers vs ischemia. No fevers. Blood cultures in progress. Chest xary no consolidation. No other source of infection on exam. Likely Leukemoid reaction form tissue ischemia, gangrene and cellulitis. CRP 11.2. 2. Right Toe Dry gangrene: s/p re-vascularization procedure 01/18/19. On the schedule for Great Right toed amputation tomorrow pending consent from her daughter. Dr. Aden following. Please send for cultures and pathology. 3. Non healing right foot ulcers: 2 ulcers on the dorsum of the right foot. Superficial no drainage. 4. PVD with Right leg ischemia: s/p right leg endovasular revasuclarzation 11/2018. Arterial duplex shows stable moderate generalized atherosclerosis with a similar stenosis of the mid right SFA. s/p re-vascularization procedure 01/18/19 . 5. Sacral Wound - Stage 2 sacral pressure injury noted: superficial. Not infected. Continue wound care 6. Type 2 diabetes: recommend tight glycemic control 7. ESRD on HD: antibiotics renally adjusted. Nephrology following. Recommendations: - Continue wound care - Continue to monitor leukocytosis off antibiotics - follow-up Procal -Agree with Great right toe amputation - please send for culture and pathology -Final antibiotic plans based on surgical cultures and pathology [facility] [facility] M: [phone] O:[phone]. Subjective Date of service: 01/23/19 Principal diagnosis: PVD with gangrene Interval history: Patient seen and examined in HD. Reports no acute distress. No fevers. Calm. Objective - Exam Narrative Exam: Constitutional: Alert.. Awake. No acute distress Head, Ears, Nose: Normocephalic, atraumatic. External ears, nose normal Eyes: Conjunctivae/corneas clear. No icterus. No ptosis. Neck: Supple, no meningeal signs Oral: dentition poor. No thrush. oral mucosa moist Cardiovascular: S1, S2 normal. Respiratory: Good air entry, clear to auscultation bilaterally GI: Soft, non-tender; bowel sounds normal. No peritoneal signs Musculoskeletal: No pedal edema, no cyanosis. Skin: bilateral lower extremity with right toe dry gangrene. Bilateral lower extremity with dystrophic toenails. 2 superficial ulcerations on right dorsum. Right lower extremity tenderness. Hem/Lymphatic: No palpable cervical or supraclavicular nodes. No lymphangitis Psych: Mood ok. Neurological: Awake, alert, oriented. - Constitutional Vitals: Vital Signs Temp Pulse Resp BP Pulse Ox 98.0 F 107 H 18 125/65 99 01/23/19 03:51 01/23/19 03:51 01/23/19 03:51 01/23/19 03:51 01/23/19 03:51 Temperature -Last 24 Hours Temperature 98.0 F Temperature 98.0 F Temperature 98.0 F Temperature 99.0 F Temperature 97.9 F - Labs CBC & Chem 7: 01/22/19 03:10 01/23/19 06:53 Labs: Abnormal lab results 01/22/19 01/22/19 01/22/19 Range/Units 11:20 15:52 21:46 Chloride (98-107) mmol/L BUN (7-17) mg/dL Creatinine (0.7-1.2) mg/dL Glucose (65-100) mg/dL POC Glucose 194 H 358 H 47 L (70-105) 01/22/19 01/23/19 01/23/19 Range/Units 22:20 06:53 08:58 Chloride 96.8 L (98-107) mmol/L BUN 33 H (7-17) mg/dL Creatinine 5.0 H (0.7-1.2) mg/dL Glucose 193 H (65-100) mg/dL POC Glucose 171 H 178 H (70-105)
--- NOTE | 2019-01-23 10:51 | Progress Note ---
Assessment and Plan - Patient Problems (1) Dry gangrene Current Visit: Yes Status: Acute Plan to address problem: 1) I have put a call in to pt's NOK, Annalise Dilma at [phone] to obtain informed consent as pt is disoriented. I had to leave a message. 2) Cannot perform amputation today b/o HD. 3) She is on the schedule for tomorrow for amputation pending consent from her NOK. 4) NPO after MN Subjective Date of service: 01/23/19 Patient Reports: Positive: no new complaints (Seen in HD.) Objective Vital Signs - 12hr 01/23/19 01/23/19 00:00 03:51 Temperature 98.0 F 98.0 F Pulse Rate 103 H 107 H Respiratory 20 18 Rate Blood Pressure 153/82 125/65 O2 Sat by Pulse 100 99 Oximetry - Musculoskeletal other (Distal half of right great toe is involved with dry gangrene.) - Labs 01/22/19 03:10 01/23/19 06:53 Diabetes panel 01/23/19 Range/Units 06:53 Sodium 137 (137-145) mmol/L Potassium 4.2 D (3.6-5.0) mmol/L Chloride 96.8 L (98-107) mmol/L Carbon Dioxide 29 (22-30) mmol/L BUN 33 H (7-17) mg/dL Creatinine 5.0 H (0.7-1.2) mg/dL Glucose 193 H (65-100) mg/dL Calcium 9.7 (8.4-10.2) mg/dL Calcium panel 01/23/19 Range/Units 06:53 Calcium 9.7 (8.4-10.2) mg/dL Pituitary panel 01/23/19 Range/Units 06:53 Sodium 137 (137-145) mmol/L Potassium 4.2 D (3.6-5.0) mmol/L Chloride 96.8 L (98-107) mmol/L Carbon Dioxide 29 (22-30) mmol/L BUN 33 H (7-17) mg/dL Creatinine 5.0 H (0.7-1.2) mg/dL Glucose 193 H (65-100) mg/dL Calcium 9.7 (8.4-10.2) mg/dL Adrenal panel 01/23/19 Range/Units 06:53 Sodium 137 (137-145) mmol/L Potassium 4.2 D (3.6-5.0) mmol/L Chloride 96.8 L (98-107) mmol/L Carbon Dioxide 29 (22-30) mmol/L BUN 33 H (7-17) mg/dL Creatinine 5.0 H (0.7-1.2) mg/dL Glucose 193 H (65-100) mg/dL Calcium 9.7 (8.4-10.2) mg/dL
[2019-01-23] MEDS ORDERED: NACL 0.9 (PRIMING MACHINE ONLY DIALYSIS) MC ONE (10:53)
--- NOTE | 2019-01-23 12:13 | Progress Note ---
Assessment and Plan Impression: * End stage renal disease * Gangrene of right great toe * Peripheral artery disease * Hypertension * Type II DM * Secondary hyperparathyroidism * Anemia secondary to ESRD Plan: * Continue outpatient TTS schedule * UF as tolerated * Vascular surgery and general surgery following * Epogen TIW prn * Continue antiHTN medications * Renal diet Subjective Date of service: 01/23/19 Principal diagnosis: PVD with gangrene Interval history: Patient seen on dialysis. She reports right foot pain. Objective - Vital Signs Vital signs: Vital Signs - 12hr 01/23/19 01/23/19 01/23/19 03:51 09:35 10:00 Temperature 98.0 F 100.1 F H Pulse Rate 107 H 101 H 100 H Respiratory 18 16 Rate Blood Pressure 125/65 153/68 130/79 O2 Sat by Pulse 99 Oximetry 01/23/19 01/23/19 01/23/19 10:15 10:30 10:45 Temperature Pulse Rate 99 H 100 H 99 H Respiratory Rate Blood Pressure 114/70 139/82 145/67 O2 Sat by Pulse Oximetry 01/23/19 01/23/19 01/23/19 11:00 11:15 11:30 Temperature Pulse Rate 91 H 102 H 103 H Respiratory Rate Blood Pressure 134/64 135/68 139/68 O2 Sat by Pulse Oximetry 01/23/19 01/23/19 11:45 12:00 Temperature Pulse Rate 89 92 H Respiratory Rate Blood Pressure 129/71 121/69 O2 Sat by Pulse Oximetry - General Appearance General appearance: well-developed, well-nourished EENT: ATNC Respiratory: Present: Clear to Ascultation Cardiology: regular Gastrointestinal: normal, no tenderness, no distended Integumentary: warm and dry Neurologic: alert and oriented x3 Psychiatric: cooperative - Lab 01/22/19 03:10 01/23/19 06:53 Most recent lab results Calcium 9.7 mg/dL (8.4-10.2) 01/23/19 06:53 Magnesium 1.90 mg/dL (1.7-2.3) 01/13/19 17:54 Medications & Allergies - Medications Allergies/Adverse Reactions: Allergies erythromycin base [Erythromycin Base] Allergy (Verified 10/26/18 18:04) Rash PATIENT ASK ME TO REMOVEDMED ON ALLERGY LIST. Home Medications: Home Medications Medication Instructions Recorded Confirmed Last Taken Type Ferric Citrate (Nf) [Auryxia] 630 mg PO TIDWM 09/05/18 12/28/18 11/18/18 History Pantoprazole [Protonix TAB] 40 mg PO BID #60 tablet 10/03/18 12/28/18 10/16/18 20:00 Rx ISOSORBIDE MONOnitrate [Imdur ER] 30 mg PO QDAY #30 tablet 10/04/18 12/28/18 Unknown Rx Lisinopril [Zestril TAB] 5 mg PO DAILY #30 tablet 10/04/18 12/28/18 Unknown Rx cloNIDine [Catapres] 0.1 mg PO TID PRN 10/17/18 12/28/18 Unknown History Mupirocin [Bactroban 2% OINT] 1 applic TP TID #1 tube 10/29/18 12/28/18 Unknown Rx Clopidogrel [Plavix] 75 mg PO QDAY #30 tablet 11/28/18 12/28/18 Unknown Rx Clopidogrel [Plavix] 75 mg PO QDAY tablet 11/29/18 12/28/18 Unknown Rx oxyCODONE /ACETAMINOPHEN [Percocet 1 tab PO Q6H PRN #20 tablet 01/19/19 Unknown Rx 5/325 mg] Active Medications: Generic Name Dose Route Start Last Admin Trade Name Gonsaloq PRN Reason Stop Dose Admin Acetaminophen 650 mg 01/13/19 22:37 01/18/19 00:16 Tylenol PO 650 mg Q4H PRN Administration Pain MILD(1-3)/Fever >100.5/PEREZ Aspirin 81 mg 01/18/19 18:00 01/22/19 09:26 Halfprin Ec PO 81 mg QDAY CALIXTO Administration Clonidine HCl 0.1 mg 01/14/19 09:31 01/20/19 06:01 Catapres PO 0.1 mg TID PRN Administration Blood Pressure Clopidogrel Bisulfate 75 mg 01/14/19 10:00 01/22/19 09:25 Plavix PO 75 mg QDAY CALIXTO Administration Dextrose 50 ml 01/13/19 22:40 01/22/19 21:42 D50w (25gm) Syringe IV 50 ml PRN PRN Administration Hypoglycemia Enoxaparin Sodium 30 mg 01/14/19 10:00 01/22/19 09:25 Lovenox SUB-Q 30 mg QDAY CALIXTO Administration Insulin Human Lispro 0 unit 01/14/19 07:30 01/22/19 21:46 Humalog SUB-Q Not Given [facility] COUNTS INCLUDE 234 BEDS AT THE [facility] Protocol Isosorbide Mononitrate 30 mg 01/14/19 10:00 01/22/19 09:26 Imdur PO 30 mg DAILY CAILXTO Administration Lisinopril 10 mg 01/22/19 10:00 01/22/19 09:25 Zestril PO 10 mg QDAY CALIXTO Administration Mupirocin 1 applic 01/14/19 14:00 01/22/19 21:46 Bactroban 2% TP 1 applic TID CALIXTO Administration Ondansetron HCl 4 mg 01/13/19 22:37 01/22/19 15:12 Zofran IV 4 mg Q8H PRN Administration Nausea And Vomiting Oxycodone/Acetaminophen 1 tab 01/14/19 09:31 01/23/19 01:30 Percocet 5/325 PO 1 tab Q6H PRN Administration Pain, Moderate (4-6) Pantoprazole Sodium 40 mg 01/14/19 10:00 01/22/19 21:45 Protonix PO 40 mg BID CALIXTO Administration Sodium Chloride 10 ml 01/14/19 10:00 01/22/19 21:46 Sodium Chloride Flush Syringe 10 Ml IV 10 ml BID CALIXTO Administration Sodium Chloride 10 ml 01/13/19 22:37 01/21/19 22:07 Sodium Chloride Flush Syringe 10 Ml IV 10 ml PRN PRN Administration LINE FLUSH
[2019-01-23 12:24] LABS: Hepatitis B Surface Antigen Non-Reactive (Negative); Hepatitis C Virus Antibody Non-Reactive (NonReactive)
[2019-01-23] MEDS: IMDUR PO SCH (16:43)
[2019-01-23] MEDS: ZESTRIL PO SCH (16:45)
[2019-01-23] MEDS: PLAVIX PO SCH (16:46)
[2019-01-23] MEDS: PROTONIX PO SCH ×2 (16:46→22:10)
[2019-01-23] MEDS: LOVENOX SUB-Q SCH (16:47)
[2019-01-23] MEDS: HALFPRIN EC PO SCH (16:47)
[2019-01-23] MEDS: SODIUM CHLORIDE FLUSH SYRINGE 10 ML IV SCH ×2 (16:47→22:12)
[2019-01-23] MEDS: BACTROBAN 2% TP SCH ×2 (18:00→22:11)
[2019-01-23] MEDS: HumaLOG SUB-Q SCH ×2 (18:15→22:11)
[2019-01-24 01:44] LABS: Calcium 9.3 mg/dL (8.4-10.2)
[2019-01-24 01:52] LABS: Hematocrit 34.1 % (30.3-42.9); Hemoglobin 10.5 gm/dl (10.1-14.3); Mean Corpuscular HGB Conc 31 % (30-34); Mean Corpuscular Volume 82 fl (79-97); Platelet Count 313 K/mm3 (140-440); Red Blood Count 4.14 M/mm3 (3.65-5.03)
[2019-01-24 01:53] LABS: Red Cell Distribution Width 23.2 % (13.2-15.2)
[2019-01-24 06:43] LABS: Calcium 9.6 mg/dL (8.4-10.2)
--- NOTE | 2019-01-24 08:48 | Progress Note ---
Assessment and Plan Assessment and plan: Patient is 68 year old woman from [facility] with a history of Hypertension, DM type 2, ESRD on HD, CAD, PVD and right lower extremity with gangrene of the ankle status post recent re-vascularization,comes to [facility] ED because she was severely tachycardiac at Hemodialysis center. In the emergency room she was found to have gangrene of the right foot, started on vancomycin. * Previous angiogram result Impression: 1) Aortogram and right lower extremity angiography demonstrating multifocal 80-90% stenosis within the proximal and mid SFA with complete occlusion of the mid to distal SFA and reconstitution of the popliteal artery and distal SFA through collaterals. There is single vessel runoff to the foot throughout peroneal artery. 2) Attempted revascularization from both an antegrade and pedal approach as described without success. 3) The patient will need to be rescheduled for re-va scularization procedure on her right leg with anesthesia from both an antegrade and popliteal artery approach. " Acute Right leg limb ischemia: Patient was on palvix, Vascular consulted. Has 2 vessel runoff. Despite 2 vessel runoff, may not heal due to poor nutrition status and ESRD per vascular, discussed with Surgery, amputation planned Today, Surgeon. Woundcare consulted Dry gangrene: Per vascular Patient was seen in the office on 01/12/19 with plan for revascularization on 01/18/19. Patient had dry gangrene at the time, not wet gangrene. Patient is now in the hospital. If patient's clinical status improves, plan will be for further revascularization on 01/18/19 Amputation planned for today Type 2 ME: Conservative management Leukocytosis- No evidence of sepsis. Continue abx, consult ID- assisting with management Diabetic foot nonhealing ulcer: Vascular re-evaluation, ?need for amputation- surgery consulted- Ampuatation as mentioned above Decubitus ulcer at least stage 2/3 poa: consulted Wound care, HTN: continue antihypertensives ESRD on Hemodialysis TTS: Nephrology is following, monitor bmp closely, renal diet Diabetes Mellitus type 2: continue insulin and keep blood glucose less than 160 Anemia of chronic disease: monitored cbc closely and was stable Severe Protien calorie Malnutrition, poa: Clinical Training Coordinator consulted PAD- Prox Superficial Femoral Artery associated with critical limb ischemia, see above: Vascular Surgeon is managing, s/p Re-vascularization procedure of her right leg 7/8/19 with good result. d/w Dr. Jones, Started on Plavix Chronic edema of left upper extremity: The patient has had multiple workup with no find is a student reason why. This also houses her AV graft. Poor prognosis History Interval history: Patient was seen and examined. Follow-up on current diagnosis of PAD. No overnight events reported to me. Patient went to the OR today Patient denies any chest pain, shortness breath, nausea/vomiting or severe headaches. Imaging, nursing note, chart, labs and old chart reviewed. Discussed with patient. Amputation planned for today Hospitalist Physical - Physical exam Narrative exam: Gen: cachetic, chronic ill appearing, BMI 16.8, NAD, Awake, Alert, Orientated x 2, IN DIALYSIS HEENT: NCAT, EOMI, PERRL, OP Clear Neck: supple, no adenopathy, no thyromegaly, no JVD CVS/Heart: irregular irregular, normal S1S2, pulses present bilaterally Chest/Lungs: CTA B, Symmetrical chest expansion, good air entry bilaterally GI/Abdomen: soft, NTND, good bowel sounds, no guarding or rebound /Bladder: no suprapubic tenderness, no CVA or paraspinal tenderness Extermity/Skin: right great toe necrotic, stage 2/3 sacral pressure ulcer, left heel DTI MSK: FROM x 4 Neuro: CN 2-12 grossly intact, no new focal deficits Psych: calm - Constitutional Vitals: Temp Pulse Resp BP Pulse Ox 98.7 F 104 H 16 140/53 98 01/24/19 05:30 01/24/19 05:30 01/24/19 05:30 01/24/19 05:30 01/24/19 05:30 General appearance: Present: other (mild AMS) Results - Labs CBC & Chem 7: 01/24/19 00:56 01/24/19 05:59 Labs: Laboratory Last Values WBC 7.3 K/mm3 (4.5-11.0) 01/24/19 00:56 RBC 4.14 M/mm3 (3.65-5.03) 01/24/19 00:56 Hgb 10.5 gm/dl (10.1-14.3) 01/24/19 00:56 Hct 34.1 % (30.3-42.9) 01/24/19 00:56 MCV 82 fl (79-97) 01/24/19 00:56 MCH 25 pg (28-32) L 01/24/19 00:56 MCHC 31 % (30-34) 01/24/19 00:56 RDW 23.2 % (13.2-15.2) H 01/24/19 00:56 Plt Count 313 K/mm3 (140-440) 01/24/19 00:56 Lymph % (Auto) 5.2 % (13.4-35.0) L 01/22/19 03:10 [place] % (Auto) 8.3 % (0.0-7.3) H 01/22/19 03:10 Eos % (Auto) 1.2 % (0.0-4.3) 01/22/19 03:10 Baso % (Auto) 0.2 % (0.0-1.8) 01/22/19 03:10 Lymph # 0.5 K/mm3 (1.2-5.4) L 01/22/19 03:10 [place] # 0.8 K/mm3 (0.0-0.8) 01/22/19 03:10 Eos # 0.1 K/mm3 (0.0-0.4) 01/22/19 03:10 Baso # 0.0 K/mm3 (0.0-0.1) 01/22/19 03:10 Add Manual Diff Complete 01/19/19 09:37 Total Counted 100 01/19/19 09:37 Seg Neutrophils % 85.1 % (40.0-70.0) H 01/22/19 03:10 Seg Neuts % (Manual) 94.0 % (40.0-70.0) H 01/19/19 09:37 0 % 01/19/19 09:37 4.0 % (13.4-35.0) L 01/19/19 09:37 Reactive Lymphs % (Man) 0 % 01/19/19 09:37 1.0 % (0.0-7.3) 01/19/19 09:37 1.0 % (0.0-4.3) 01/19/19 09:37 0 % (0.0-1.8) 01/19/19 09:37 0 % 01/19/19 09:37 0 % 01/19/19 09:37 0 % 01/19/19 09:37 0 % 01/19/19 09:37 Nucleated RBC % Not Reportable 01/19/19 09:37 Seg Neutrophils # 8.5 K/mm3 (1.8-7.7) H 01/22/19 03:10 Seg Neutrophils # Man 20.5 K/mm3 (1.8-7.7) H 01/19/19 09:37 Band Neutrophils # 0.0 K/mm3 01/19/19 09:37 0.9 K/mm3 (1.2-5.4) L 01/19/19 09:37 Abs React Lymphs (Man) 0.0 K/mm3 01/19/19 09:37 0.2 K/mm3 (0.0-0.8) 01/19/19 09:37 0.2 K/mm3 (0.0-0.4) 01/19/19 09:37 0.0 K/mm3 (0.0-0.1) 01/19/19 09:37 0.0 K/mm3 01/19/19 09:37 0.0 K/mm3 01/19/19 09:37 0.0 K/mm3 01/19/19 09:37 Blast Cells # 0.0 K/mm3 01/19/19 09:37 WBC Morphology Not Reportable 01/19/19 09:37 Hypersegmented Neuts Not Reportable 01/19/19 09:37 Hyposegmented Neuts Not Reportable 01/19/19 09:37 Hypogranular Neuts Not Reportable 01/19/19 09:37 Not Reportable 01/19/19 09:37 Not Reportable 01/19/19 09:37 Not Reportable 01/19/19 09:37 Not Reportable 01/19/19 09:37 Not Reportable 01/19/19 09:37 Not Reportable 01/19/19 09:37 Consistent w auto 01/19/19 09:37 Not Reportable 01/19/19 09:37 Plt Clumps, EDTA Not Reportable 01/19/19 09:37 Not Reportable 01/19/19 09:37 Not Reportable 01/19/19 09:37 Not Reportable 01/19/19 09:37 Plt Morphology Comment Not Reportable 01/19/19 09:37 RBC Morphology Not Reportable 01/19/19 09:37 Dimorphic RBCs Not Reportable 01/19/19 09:37 Not Reportable 01/19/19 09:37 1+ 01/19/19 09:37 Not Reportable 01/19/19 09:37 2+ 01/19/19 09:37 Not Reportable 01/19/19 09:37 Not Reportable 01/19/19 09:37 Not Reportable 01/19/19 09:37 Not Reportable 01/19/19 09:37 Not Reportable 01/19/19 09:37 Not Reportable 01/19/19 09:37 Not Reportable 01/19/19 09:37 Not Reportable 01/19/19 09:37 Not Reportable 01/19/19 09:37 Not Reportable 01/19/19 09:37 Not Reportable 01/19/19 09:37 Not Reportable 01/19/19 09:37 Not Reportable 01/19/19 09:37 Not Reportable 01/19/19 09:37 Not Reportable 01/19/19 09:37 Acanthocytes (Spur) Not Reportable 01/19/19 09:37 Rouleaux Not Reportable 01/19/19 09:37 Not Reportable 01/19/19 09:37 Not Reportable 01/19/19 09:37 Not Reportable 01/19/19 09:37 Not Reportable 01/19/19 09:37 Hem Pathologist Commnt No 01/19/19 09:37 PT 15.5 Sec. (12.2-14.9) H 01/13/19 17:42 INR 1.26 (0.87-1.13) H 01/13/19 17:42 APTT 50.0 Sec. (24.2-36.6) H 01/13/19 17:42 Sodium 137 mmol/L (137-145) 01/24/19 05:59 Potassium 3.5 mmol/L (3.6-5.0) L D 01/24/19 05:59 Chloride 96.4 mmol/L (98-107) L 01/24/19 05:59 Carbon Dioxide 28 mmol/L (22-30) 01/24/19 05:59 16 mmol/L 01/24/19 05:59 BUN 16 mg/dL (7-17) 01/24/19 05:59 3.2 mg/dL (0.7-1.2) H 01/24/19 05:59 Estimated GFR 17 ml/min 01/24/19 05:59 5 % 01/24/19 05:59 Glucose 149 mg/dL (65-100) H 01/24/19 05:59 POC Glucose 144 (70-105) H 01/24/19 08:03 Lactic Acid 0.90 mmol/L (0.7-2.0) 01/13/19 17:54 Calcium 9.6 mg/dL (8.4-10.2) 01/24/19 05:59 Magnesium 1.90 mg/dL (1.7-2.3) 01/13/19 17:54 0.50 mg/dL (0.1-1.2) 01/13/19 17:42 < 0.2 mg/dL (0-0.2) 01/13/19 17:42 0.3 mg/dL 01/13/19 17:42 AST 10 units/L (5-40) 01/13/19 17:42 ALT < 5 units/L (7-56) L 01/13/19 17:42 123 units/L (35-129) 01/13/19 17:42 73 units/L (30-135) 01/14/19 07:21 CK-MB (CK-2) 4.4 ng/mL (0.0-4.0) H 01/14/19 07:21 CK-MB (CK-2) Rel Index 6.0 (0-4) H 01/14/19 07:21 0.335 ng/mL (0.00-0.029) H* D 01/14/19 07:21 11.20 mg/dL (0.00-1.30) H 01/22/19 03:10 NT-Pro-B Natriuret Pep 29453 pg/mL (0-900) H 01/13/19 17:42 6.8 g/dL (6.3-8.2) 01/13/19 17:42 2.9 g/dL (3.9-5) L 01/13/19 17:42 0.7 % 01/13/19 17:42 Triglycerides 218 mg/dL (2-149) H 01/13/19 17:54 Cholesterol 130 mg/dL (50-199) 01/13/19 17:54 50 mg/dL (50-130) 01/13/19 17:54 37 mg/dL (40-59) L 01/13/19 17:54 3.51 % 01/13/19 17:54 TSH 3.000 mlU/mL (0.270-4.200) 01/13/19 17:42 Random Vancomycin 17.1 ug/mL (0-40.0) 01/20/19 03:50 Hepatitis A IgM Ab Non-reactive (NonReactive) 01/23/19 10:09 Hep Bs Antigen Non-reactive (Negative) 01/23/19 10:09 Hep B Core IgM Ab Non-reactive (NonReactive) 01/23/19 10:09 Non-reactive (NonReactive) 01/23/19 10:09 Active Medications - Current Medications Current Medications: Generic Name Dose Route Start Last Admin Trade Name Freq PRN Reason Stop Dose Admin Acetaminophen 650 mg 01/13/19 22:37 01/18/19 00:16 Tylenol PO 650 mg Q4H PRN Administration Pain MILD(1-3)/Fever >100.5/PEREZ Aspirin 81 mg 01/18/19 18:00 01/23/19 16:47 Halfprin Ec PO 81 mg QDAY CALIXTO Administration Clonidine HCl 0.1 mg 01/14/19 09:31 01/20/19 06:01 Catapres PO 0.1 mg TID PRN Administration Blood Pressure Clopidogrel Bisulfate 75 mg 01/14/19 10:00 01/23/19 16:46 Plavix PO 75 mg QDAY CALIXTO Administration Dextrose 50 ml 01/13/19 22:40 01/22/19 21:42 D50w (25gm) Syringe IV 50 ml PRN PRN Administration Hypoglycemia Enoxaparin Sodium 30 mg 01/14/19 10:00 01/23/19 16:47 Lovenox SUB-Q 30 mg QDAY CALIXTO Administration Insulin Human Lispro 0 unit 01/14/19 07:30 01/23/19 22:11 Humalog SUB-Q Not Given [facility] Protocol Isosorbide Mononitrate 30 mg 01/14/19 10:00 01/23/19 16:43 Imdur PO 30 mg DAILY CALIXTO Administration Lisinopril 10 mg 01/22/19 10:00 01/23/19 16:45 Zestril PO 10 mg QDAY CALIXTO Administration Mupirocin 1 applic 01/14/19 14:00 01/23/19 22:11 Bactroban 2% TP 1 applic TID CALIXTO Administration Ondansetron HCl 4 mg 01/13/19 22:37 01/22/19 15:12 Zofran IV 4 mg Q8H PRN Administration Nausea And Vomiting Oxycodone/Acetaminophen 1 tab 01/14/19 09:31 01/23/19 21:04 Percocet 5/325 PO 1 tab Q6H PRN Administration Pain, Moderate (4-6) Pantoprazole Sodium 40 mg 01/14/19 10:00 01/23/19 22:10 Protonix PO 40 mg BID CALIXTO Administration Sodium Chloride 10 ml 01/14/19 10:00 01/23/19 22:12 Sodium Chloride Flush Syringe 10 Ml IV 10 ml BID CALIXTO Administration Sodium Chloride 10 ml 01/13/19 22:37 01/21/19 22:07 Sodium Chloride Flush Syringe 10 Ml IV 10 ml PRN PRN Administration LINE FLUSH Nutrition/Malnutrition Assess - Dietary Evaluation Nutrition/Malnutrition Findings: Nutrition Notes Start: 01/15/19 15:2 2 Freq: Status: Active Protocol: Document 01/23/19 13:54 RM (Rec: 01/23/19 14:06 RM [id number]) Nutrition Notes Initial or Follow up Reassessment Current Diagnosis Coronary Artery Disease, Diabetes,Hypertension Other Pertinent Diagnosis ESRD on HD (T/T/S), R foot wound w/gangrene, Sacral PU, PVD Current Diet Cardiac,Renal,Pureed Labs/Tests Reviewed Pertinent Medications Zofran Height 5 ft 2 in Weight 38.9 kg Cook Body Weight (kg) 50.00 BMI 15.7 Weight change and time frame Noted wt loss Subjective/Other Information NPO in place earlier today. Cardiac, Renal, Pureed ordered later today. Pt not in room at time of visit. Noted 2 unopened Nepro at bedside. Per nurse pt has been eating bites of her meals and drink a little of the Nepro. Burn Absent Trauma Absent #1 Nutrition Diagnosis Malnutrition Diagnosis Progress(for reassessment Continues documentation) Is patient on ventilator? No Is Patient Ambulatory and/or Out of Bed No REE-([place]-St. Jeor-confined to bed) 1040.952 Kcal/Kg value to use for calculation 35 Approximate Energy Requirements Using 1362 kcal/Kg Additional Notes Protein Needs: 51-64g (1.2-1. 5g/kg) Fluid Needs: 1 ml/kcal Nutrition Intervention Change Diet Order: Continue current Add Supplement/Snack (indicate name/kcal D/C Nepro. Ensure Clear 1 /protein ) daily Provides kCal: 240 Provides Protein (gm) 8 Goal #1 Meet at least 75% of calorie and protein needs via PO and ONS intakes Goal #2 Wt gain/maintenance Anticipated Discharge Needs: Cardiac,Renal,Pureed diet Follow-Up By: 01/25/19 Additional Comments Follow for PO and ONS intakes
--- NOTE | 2019-01-24 10:19 | Progress Note ---
Assessment and Plan Cultures: 01/13/19 Blood: No growth A/P: 68 year old woman with a past medical history of Hypertension, diabetes, ESRD, CAD PVD, Right lower extremity gangrene.Admitted with: 1. Sepsis on Admission: Resolved. Etiology right great toe dry gangrene vs non healing foot ulcers vs ischemia. No fevers. Blood cultures in progress. Chest xary no consolidation. No other source of infection on exam. Likely Leukemoid reaction form tissue ischemia, gangrene and cellulitis. CRP 11.2. 2. Right Toe Dry gangrene: s/p re-vascularization procedure 01/18/19. On the schedule for Great Right toe amputation tomorrow pending consent from her daughter. Dr. Aden following. Please send for cultures and pathology. 3. Non healing right foot ulcers: 2 ulcers on the dorsum of the right foot. Superficial no drainage. 4. PVD with Right leg ischemia: s/p right leg endovasular revasuclarzation 11/2018. Arterial duplex shows stable moderate generalized atherosclerosis with a similar stenosis of the mid right SFA. s/p re-vascularization procedure 01/18/19 . 5. Sacral Wound - Stage 2 sacral pressure injury noted: superficial. Not infected. Continue wound care 6. Type 2 diabetes: recommend tight glycemic control 7. ESRD on HD: antibiotics renally adjusted. Nephrology following. Recommendations: - Continue wound care - Continue to monitor leukocytosis off antibiotics - follow-up Procal -Agree with Great right toe amputation - please send for culture and proximal bone for pathology -Final antibiotic plans based on surgical cultures and pathology [facility] M: [phone] O:[phone]. Subjective Date of service: 01/24/19 Principal diagnosis: PVD with gangrene Objective - Constitutional Vitals: Vital Signs Temp Pulse Resp BP Pulse Ox 98.7 F 104 H 16 140/53 98 01/24/19 05:30 01/24/19 05:30 01/24/19 05:30 01/24/19 05:30 01/24/19 05:30 Temperature -Last 24 Hours Temperature 98.7 F Temperature 99.2 F Temperature 98.6 F Temperature 98.1 F Temperature 99 F Temperature 97.9 F Temperature 97.8 F - Labs CBC & Chem 7: 01/24/19 00:56 01/24/19 05:59 Labs: Abnormal lab results 01/23/19 01/23/19 01/23/19 Range/Units 13:35 15:21 17:52 MCH (28-32) pg RDW (13.2-15.2) % Potassium (3.6-5.0) mmol/L Chloride (98-107) mmol/L Creatinine (0.7-1.2) mg/dL Glucose (65-100) mg/dL POC Glucose 187 H 145 H 236 H (70-105) 01/23/19 01/24/19 01/24/19 Range/Units 21:21 00:56 00:56 MCH 25 L (28-32) pg RDW 23.2 H (13.2-15.2) % Potassium 5.2 H D (3.6-5.0) mmol/L Chloride 95.5 L (98-107) mmol/L Creatinine 2.8 H (0.7-1.2) mg/dL Glucose 157 H (65-100) mg/dL POC Glucose 149 H (70-105) 01/24/19 01/24/19 Range/Units 05:59 08:03 MCH (28-32) pg RDW (13.2-15.2) % Potassium 3.5 L D (3.6-5.0) mmol/L Chloride 96.4 L (98-107) mmol/L Creatinine 3.2 H (0.7-1.2) mg/dL Glucose 149 H (65-100) mg/dL POC Glucose 144 H (70-105)
[2019-01-24] MEDS ORDERED: XYLOCAINE 1% 20 mL ONE (10:39)
[2019-01-24] MEDS ORDERED: SUBLIMAZE ONE (10:44)
[2019-01-24] MEDS ORDERED: ZOFRAN ONE (10:44)
[2019-01-24] MEDS ORDERED: DIPRIVAN 10 MG/ML IV ONE (10:44)
[2019-01-24] MEDS ORDERED: DECADRON ONE (10:44)
[2019-01-24] MEDS ORDERED: XYLOCAINE MPF 2% ONE (10:44)
[2019-01-24] MEDS ORDERED: SUBLIMAZE IV PRN (11:08)
--- NOTE | 2019-01-24 11:08 | Anesthesia Day of Surgery ---
Anesthesia Day of Surgery - Day of Surgery Patient Examined: Yes Patient H&P Reviewed: Yes Patient is NPO: Yes
--- NOTE | 2019-01-24 11:08 | Anesthesia Consultation ---
Anesthesia Consult and Med Hx Date of service: 01/24/19 - Airway Anesthetic Teeth Evaluation: Poor ROM Head & Neck: Inadequate Mental/Hyoid Distance: Adequate Mallampati Class: Class II Intubation Access Assessment: Possibly Difficult - Pulmonary Exam CTA: Yes - Cardiac Exam Cardiac Exam: RRR (systolic murmur) - Pre-Operative Health Status ASA Pre-Surgery Classification: ASA4 Proposed Anesthetic Plan: MAC - Pulmonary Hx Smoking: No SOB: Yes (stable 1 pillow orthopnea) - Cardiovascular System Hx Hypertension: Yes Hx Coronary Artery Disease: No Hx Heart Attack/AMI: No Hx Valvular Heart Disease: Yes (moderate ) Hx Heart Murmur: Yes Hx Peripheral Vascular Disease: Yes - Central Nervous System Hx Seizures: No CVA: No - Gastrointestinal Hx Ulcer: Yes (PUD/ GI bleed 05/2014) Hx Gastroesophageal Reflux Disease: Yes (Mild) - Endocrine Hx Renal Disease: Yes (HD T,TH,Sat) Hx End Stage Renal Disease: Yes (last HD 01/23/19) Hx Liver Disease: No Hx Insulin Dependent Diabetes: Yes Hx Thyroid Disease: No - Hematic Hx Anemia: Yes Hx Sickle Cell Disease: No - Other Systems Hx Obesity: No
[2019-01-24] MEDS: NACL 0.9% 1000 ML 1,000 ML IV SCH ×2 (11:30→22:43)
[2019-01-24] MEDS: ZOFRAN IV PRN (11:30)
--- NOTE | 2019-01-24 11:30 | Progress Note ---
Assessment and Plan Impression: * End stage renal disease * Gangrene of right great toe --s/p amputation Sept 4th * Peripheral artery disease * Hypertension * Type II DM * Secondary hyperparathyroidism * Anemia secondary to ESRD Plan: * Continue outpatient TTS schedule * UF as tolerated * Consultants' recommendations reviewed * Epogen TIW prn * Continue antiHTN medications * Renal diet Subjective Date of service: 01/24/19 Principal diagnosis: PVD with gangrene Interval history: Patient has no complaints. She is seen s/p amputation of great toe, right foot Objective - Vital Signs Vital signs: Vital Signs - 12hr 01/24/19 05:30 Temperature 98.7 F Pulse Rate 104 H Respiratory 16 Rate Blood Pressure 140/53 O2 Sat by Pulse 98 Oximetry - General Appearance General appearance: frail EENT: ATNC Respiratory: Present: Clear to Ascultation Cardiology: regular, S1S2 Gastrointestinal: normal, no tenderness, no distended Integumentary: warm and dry Musculoskeletal: other (no edema) Psychiatric: cooperative - Lab 01/24/19 00:56 01/24/19 05:59 Most recent lab results Calcium 9.6 mg/dL (8.4-10.2) 01/24/19 05:59 Magnesium 1.90 mg/dL (1.7-2.3) 01/13/19 17:54 Medications & Allergies - Medications Allergies/Adverse Reactions: Allergies erythromycin base [Erythromycin Base] Allergy (Verified 10/26/18 18:04) Rash PATIENT ASK ME TO REMOVEDMED ON ALLERGY LIST. Home Medications: Home Medications Medication Instructions Recorded Confirmed Last Taken Type Ferric Citrate (Nf) [Auryxia] 630 mg PO TIDWM 09/05/18 12/28/18 11/18/18 History Pantoprazole [Protonix TAB] 40 mg PO BID #60 tablet 10/03/18 12/28/18 10/16/18 20:00 Rx ISOSORBIDE MONOnitrate [Imdur ER] 30 mg PO QDAY #30 tablet 10/04/18 12/28/18 U nknown Rx Lisinopril [Zestril TAB] 5 mg PO DAILY #30 tablet 10/04/18 12/28/18 Unknown Rx cloNIDine [Catapres] 0.1 mg PO TID PRN 10/17/18 12/28/18 Unknown History Mupirocin [Bactroban 2% OINT] 1 applic TP TID #1 tube 10/29/18 12/28/18 Unknown Rx Clopidogrel [Plavix] 75 mg PO QDAY #30 tablet 11/28/18 12/28/18 Unknown Rx Clopidogrel [Plavix] 75 mg PO QDAY tablet 11/29/18 12/28/18 Unknown Rx oxyCODONE /ACETAMINOPHEN [Percocet 1 tab PO Q6H PRN #20 tablet 01/19/19 Unknown Rx 5/325 mg] Active Medications: Generic Name Dose Route Start Last Admin Trade Name Freq PRN Reason Stop Dose Admin Acetaminophen 650 mg 01/13/19 22:37 01/18/19 00:16 Tylenol PO 650 mg Q4H PRN Administration Pain MILD(1-3)/Fever >100.5/PEREZ Aspirin 81 mg 01/18/19 18:00 01/23/19 16:47 Halfprin Ec PO 81 mg QDAY [facility] Administration Clonidine HCl 0.1 mg 01/14/19 09:31 01/20/19 06:01 Catapres PO 0.1 mg TID PRN Administration Blood Pressure Clopidogrel Bisulfate 75 mg 01/14/19 10:00 01/23/19 16:46 Plavix PO 75 mg QDAY [facility] Administration Dextrose 50 ml 01/13/19 22:40 01/22/19 21:42 D50w (25gm) Syringe IV 50 ml PRN PRN Administration Hypoglycemia Enoxaparin Sodium 30 mg 01/14/19 10:00 01/23/19 16:47 Lovenox SUB-Q 30 mg QDAY [facility] Administration Famotidine 20 mg 01/24/19 12:00 Pepcid IV 01/24/19 12:01 ONCE ONE Fentanyl 50 mcg 01/24/19 11:08 Sublimaze IV 01/24/19 20:00 Q5MIN PRN Pain , Severe (7-10) Sodium Chloride 1,000 mls @ 42 mls/hr 01/24/19 12:00 Nacl 0.9% 1000 Ml IV DIRECT [facility] Insulin Human Lispro 0 unit 01/14/19 07:30 01/23/19 22:11 Humalog SUB-Q Not Given ACHS [facility] Protocol Isosorbide Mononitrate 30 mg 01/14/19 10:00 01/23/19 16:43 Imdur PO 30 mg DAILY [facility] Administration Lisinopril 10 mg 01/22/19 10:00 01/23/19 16:45 Zestril PO 10 mg QDAY [facility] Administration Mupirocin 1 applic 01/14/19 14:00 01/23/19 22:11 Bactroban 2% TP 1 applic TID [facility] Administration Ondansetron HCl 4 mg 01/13/19 22:37 01/22/19 15:12 Zofran IV 4 mg Q8H PRN Administration Nausea And Vomiting Ondansetron HCl 4 mg 01/24/19 12:00 Zofran IV 01/24/19 13:00 PREOP NR Oxycodone/Acetaminophen 1 tab 01/14/19 09:31 01/23/19 21:04 Percocet 5/325 PO 1 tab Q6H PRN Administration Pain, Moderate (4-6) Pantoprazole Sodium 40 mg 01/14/19 10:00 01/23/19 22:10 Protonix PO 40 mg BID [facility] Administration Sodium Chloride 10 ml 01/14/19 10:00 01/23/19 22:12 Sodium Chloride Flush Syringe 10 Ml IV 10 ml BID [facility] Administration Sodium Chloride 10 ml 01/13/19 22:37 01/21/19 22:07 Sodium Chloride Flush Syringe 10 Ml IV 10 ml PRN PRN Administration LINE FLUSH
[2019-01-24] MEDS ORDERED: ZOFRAN IV NR (12:00)
[2019-01-24] MEDS ORDERED: PEPCID IV ONE (12:00)
[2019-01-24] MEDS ORDERED: ANCEF/STERILE WATER 2 GM/20 ML 2 GM/20 ML SYRINGE IV ONE (12:16)
[2019-01-24] MEDS ORDERED: MARCAINE 0.5% INFILTRATI ONE ×3 (12:18)
[2019-01-24] MEDS ORDERED: NACL 0.9% IR ONE (12:18)
--- NOTE | 2019-01-24 13:40 | Event Note ---
Date: 01/24/19 Patient not seen today. In the OR for amputation. Will round on patient in the morning.
--- NOTE | 2019-01-24 15:28 | Procedure Note ---
Date of procedure: 01/24/19 Pre-op diagnosis: Gangrene, right great toe Post-op diagnosis: same Procedure: TMA of right great toe Description of procedure: Pt was placed supine or the OR table. Pt was sedated IV. Her right foot was prepped and draped. Skin and SQ tissue at the proposed incision was infiltrated with 6 ml of 0.5% Marcaine. A tear drop incision was made about the right great toe and the toe amputated at the MTP joint. Periosteum was elevated off of the metatarsal head and distal shaft and the distal metatarsal shaft amputated with a bone saw. A single digital artery was clamped and ligated with a 3-0 silk tie. Wound was irrigated with warm saline and packed open with dilute Betadine moistened Kerlix gauze. A Kerlix roll was then applied about the foot. Pt tolerated the procedure well. She was taken to PACU in stable condition. Anesthesia: MAC Surgeon: MICHAEL BLAKELY Estimated blood loss: minimal Pathology: list (Right great toe and metatarsal head) Specimen disposition: to lab Condition: stable Disposition: PACU
[2019-01-24] MEDS: PLAVIX PO SCH (15:52)
[2019-01-24] MEDS: HALFPRIN EC PO SCH (15:53)
[2019-01-24] MEDS: LOVENOX SUB-Q SCH (15:53)
[2019-01-24] MEDS: PROTONIX PO SCH ×2 (15:53→22:23)
[2019-01-24] MEDS: ZESTRIL PO SCH (16:01)
[2019-01-24] MEDS: IMDUR PO SCH (16:02)
[2019-01-24] MEDS: HumaLOG SUB-Q SCH ×2 (16:18→22:43)
[2019-01-24] MEDS: PERCOCET 5/325 PO PRN (22:23)
[2019-01-24] MEDS: BACTROBAN 2% TP SCH (22:24)
[2019-01-24] MEDS: SODIUM CHLORIDE FLUSH SYRINGE 10 ML IV SCH (22:53)
[2019-01-25] MEDS: HumaLOG SUB-Q SCH ×5 (07:30→22:04)
[2019-01-25] MEDS: BACTROBAN 2% TP SCH ×5 (08:00→22:03)
--- NOTE | 2019-01-25 08:29 | Progress Note ---
Subjective Principal diagnosis: PVD with gangrene Interval history: Patient was seen today for follow-up, on many renal related issues she is due for dialysis today On small dose of IV fluid Status post amputation Patient currently denies having any symptoms of chest pain pressure shortness of breath Better aware about renal related issues Interdisciplinary notes were reviewed Vitals labs intake and output medications were reviewed from today Allergies: Reviewed Social history: Reviewed Family history: Reviewed Physical examination HEENT: Oral mucosa moist no pharyngeal erythema Neck: Supple no JVD Chest: Clear to auscultation no crackles rales or wheezes Heart: Regular rate and rhythm S1-S2 heard no S3-S4 Abdomen: Soft nontender no renal bruit no CVA tenderness no suprapubic fullness Extremity: Mild edema dry skin no peripheral cyanosis pulses palpable changes of chronic discoloration and PAD Neurological: Alert awake Musculoskeletal: No joint effusion noted Assessment and plan End-stage renal disease: Patient will continue with hemodialysis 3 times a week on Tuesday and Tuesday schedule Patient may need to be taken off the IV fluid, ultrafiltration only as tolerated Gangrene: Status post amputation of the right great toe, history of peripheral arterial disease Anemia and end-stage renal disease: We'll monitor hemoglobin between 10 and 12 to monitor and follow erythropoietin as required Secondary hyperparathyroidism: Goal hosphorus should be less than 5.5 intact PTH: Less than 600 goals were discussed with patient Malnutrition risk: High patient is to be maintained on high protein diet, probably 1.5 g protein per KG body weight Hypertension and volume: Goal systolic blood pressure currently less than 140 systolic at this time, diet plan was discussed with patient all questions were answered advised to maintain fluid restriction stated high-protein diet sodium restriction daily weight monitoring daily blood pressure monitoring was discussed with patient Dialysis access: Currently seems to be working well no acute issues Patient was adequately counseled and educated in regard to all dialysis related issues Diet plan and current labs are also discussed We'll continue to follow and make recommendation from renal standpoint Labs were discussed with patient explained and simple [place] does have good understanding off renal related issues, Objective - Vital Signs Vital signs: Vital Signs - 12hr 01/24/19 01/25/19 23:06 05:15 Temperature 99.7 F H 98.8 F Pulse Rate 102 H 88 Respiratory 16 16 Rate Blood Pressure 142/74 144/56 O2 Sat by Pulse 99 100 Oximetry - Lab 01/25/19 10:00 01/25/19 10:00 Most recent lab results Calcium 9.6 mg/dL (8.4-10.2) 01/24/19 05:59 Magnesium 1.90 mg/dL (1.7-2.3) 01/13/19 17:54 Medications & Allergies - Medications Allergies/Adverse Reactions: Allergies erythromycin base [Erythromycin Base] Allergy (Verified 10/26/18 18:04) Rash PATIENT ASK ME TO REMOVEDMED ON ALLERGY LIST. Home Medications: Home Medications Medication Instructions Recorded Confirmed Last Taken Type Ferric Citrate (Nf) [Auryxia] 630 mg PO TIDWM 09/05/18 12/28/18 11/18/18 History Pantoprazole [Protonix TAB] 40 mg PO BID #60 tablet 10/03/18 12/28/18 10/16/18 20:00 Rx ISOSORBIDE MONOnitrate [Imdur ER] 30 mg PO QDAY #30 tablet 10/04/18 12/28/18 Unknown Rx Lisinopril [Zestril TAB] 5 mg PO DAILY #30 tablet 10/04/18 12/28/18 Unknown Rx cloNIDine [Catapres] 0.1 mg PO TID PRN 10/17/18 12/28/18 Unknown History Mupirocin [Bactroban 2% OINT] 1 applic TP TID #1 tube 10/29/18 12/28/18 Unknown Rx Clopidogrel [Plavix] 75 mg PO QDAY #30 tablet 11/28/18 12/28/18 Unknown Rx Clopidogrel [Plavix] 75 mg PO QDAY tablet 11/29/18 12/28/18 Unknown Rx oxyCODONE /ACETAMINOPHEN [Percocet 1 tab PO Q6H PRN #20 tablet 01/19/19 Unknown Rx 5/325 mg] Active Medications: Generic Name Dose Route Start Last Admin Trade Name Freq PRN Reason Stop Dose Admin Acetaminophen 650 mg 01/13/19 22:37 01/18/19 00:16 Tylenol PO 650 mg Q4H PRN Administration Pain MILD(1-3)/Fever >100.5/PEREZ Aspirin 81 mg 01/18/19 18:00 01/24/19 15:53 Halfprin Ec PO 81 mg QDAY [place] Administration Clonidine HCl 0.1 mg 01/14/19 09:31 01/20/19 06:01 Catapres PO 0.1 mg TID PRN Administration Blood Pressure Clopidogrel Bisulfate 75 mg 01/14/19 10:00 01/24/19 15:52 Plavix PO 75 mg QDAY [facility] Administration Dextrose 50 ml 01/13/19 22:40 01/22/19 21:42 D50w (25gm) Syringe IV 50 ml PRN PRN Administration Hypoglycemia Enoxaparin Sodium 30 mg 01/14/19 10:00 01/24/19 15:53 Lovenox SUB-Q 30 mg QDAY [facility] Administration Sodium Chloride 1,000 mls @ 42 mls/hr 01/24/19 12:00 01/24/19 22:43 Nacl 0.9% 1000 Ml IV 42 mls/hr DIRECT [facility] Administration Insulin Human Lispro 0 unit 01/14/19 07:30 01/25/19 07:30 Humalog SUB-Q Not Given ACHS [facility] Protocol Isosorbide Mononitrate 30 mg 01/14/19 10:00 01/24/19 16:02 Imdur PO Not Given DAILY [facility] Lisinopril 10 mg 01/22/19 10:00 01/24/19 16:01 Zestril PO Not Given QDAY [facility] Mupirocin 1 applic 01/14/19 14:00 01/24/19 22:24 Bactroban 2% TP 1 applic TID [place] Administration Ondansetron HCl 4 mg 01/13/19 22:37 01/22/19 15:12 Zofran IV 4 mg Q8H PRN Administration Nausea And Vomiting Oxycodone/Acetaminophen 1 tab 01/14/19 09:31 01/24/19 22:23 Percocet 5/325 PO 1 tab Q6H PRN Administration Pain, Moderate (4-6) Pantoprazole Sodium 40 mg 01/14/19 10:00 01/24/19 22:23 Protonix PO 40 mg BID [place] Administration Sodium Chloride 10 ml 01/14/19 10:00 01/24/19 22:53 Sodium Chloride Flush Syringe 10 Ml IV 10 ml BID [place] Administration Sodium Chloride 10 ml 01/13/19 22:37 01/21/19 22:07 Sodium Chloride Flush Syringe 10 Ml IV 10 ml PRN PRN Administration LINE FLUSH
--- NOTE | 2019-01-25 08:30 | Progress Note ---
Assessment and Plan Assessment and plan: Patient is 68 year old woman from [facility] with a history of Hypertension, DM type 2, ESRD on HD, CAD, PVD and right lower extremity with gangrene of the ankle status post recent re-vascularization,comes to [facility] ED because she was severely tachycardiac at Hemodialysis center. In the emergency room she was found to have gangrene of the right foot, started on vancomycin. * Previous angiogram result Impression: 1) Aortogram and right lower extremity angiography demonstrating multifocal 80-90% stenosis within the proximal and mid SFA with complete occlusion of the mid to distal SFA and reconstitution of the popliteal artery and distal SFA through collaterals. There is single vessel runoff to the foot throughout peroneal artery. 2) Attempted revascularization from both an antegrade and pedal approach as described without success. 3) The patient will need to be rescheduled for re-va scularization procedure on her right leg with anesthesia from both an antegrade and popliteal artery approach. " Acute Right leg limb ischemia: Patient was on palvix, Vascular consulted. Has 2 vessel runoff. Despite 2 vessel runoff, may not heal due to poor nutrition status and ESRD per vascular, discussed with Surgery, Woundcare consulted Dry gangrene: s/p TMA RIGHT GREAT TOE POD #1 Per vascular Patient was seen in the office on 01/12/19 with plan for revascularization on 01/18/19. Patient had dry gangrene at the time, not wet gangrene. Patient is now in the hospital. If patient's clinical status improves, plan will be for further revascularization on 01/18/19 Type 2 GA: Conservative management Leukocytosis- No evidence of sepsis. Continue abx, consult ID- assisting with management Diabetic foot nonhealing ulcer: Vascular re-evaluation, ?need for amputation- nettie diggs consulted- Amputation as mentioned above Decubitus ulcer at least stage 2/3 poa: consulted Wound care, HTN: continue antihypertensives ESRD on Hemodialysis TTS: Nephrology is following, monitor bmp closely, renal diet Diabetes Mellitus type 2: continue insulin and keep blood glucose less than 160 Anemia of chronic disease: monitored cbc closely and was stable Severe Protien calorie Malnutrition, poa: Side Seam Machine Operator consulted PAD- Prox Superficial Femoral Artery associated with critical limb ischemia, see above: Vascular Surgeon is managing, s/p Re-vascularization procedure of her right leg 7/8/19 with good result. d/w Dr. Jones, Started on Plavix Chronic edema of left upper extremity: The patient has had multiple workup with no find is a student reason why. This also houses her AV graft. Poor prognosis Disposition: Awaiting cultures to help guide antibiotics History Interval history: Patient was seen and examined. Follow-up on current diagnosis of PAD. No overnight events reported to me. Patient denies any chest pain, shortness breath, nausea/vomiting or severe headaches. Imaging, nursing note, chart, labs and old chart reviewed. Discussed with patient. POD#1 TMA, Right big toe Hospitalist Physical - Physical exam Narrative exam: Gen: cachetic, chronic ill appearing, BMI 16.8, NAD, Awake, Alert, Orientated x 2, IN DIALYSIS HEENT: NCAT, EOMI, PERRL, OP Clear Neck: supple, no adenopathy, no thyromegaly, no JVD CVS/Heart: irregular irregular, normal S1S2, pulses present bilaterally Chest/Lungs: CTA B, Symmetrical chest expansion, good air entry bilaterally GI/Abdomen: soft, NTND, good bowel sounds, no guarding or rebound /Bladder: no suprapubic tenderness, no CVA or paraspinal tenderness Extermity/Skin: dressing right foot, stage 2/3 sacral pressure ulcer, left heel DTI MSK: FROM x 4 Neuro: CN 2-12 grossly intact, no new focal deficits Psych: calm - Constitutional Vitals: Temp Pulse Resp BP Pulse Ox 98.8 F 88 16 144/56 100 01/25/19 05:15 01/25/19 05:15 01/25/19 05:15 01/25/19 05:15 01/25/19 05:15 General appearance: Present: other (mild AMS) Results - Labs CBC & Chem 7: 01/25/19 10:00 01/25/19 10:00 Labs: Laboratory Last Values WBC 7.3 K/mm3 (4.5-11.0) 01/24/19 00:56 RBC 4.14 M/mm3 (3.65-5.03) 01/24/19 00:56 Hgb 10.5 gm/dl (10.1-14.3) 01/24/19 00:56 Hct 34.1 % (30.3-42.9) 01/24/19 00:56 MCV 82 fl (79-97) 01/24/19 00:56 MCH 25 pg (28-32) L 01/24/19 00:56 MCHC 31 % (30-34) 01/24/19 00:56 RDW 23.2 % (13.2-15.2) H 01/24/19 00:56 Plt Count 313 K/mm3 (140-440) 01/24/19 00:56 Lymph % (Auto) 5.2 % (13.4-35.0) L 01/22/19 03:10 [place] % (Auto) 8.3 % (0.0-7.3) H 01/22/19 03:10 Eos % (Auto) 1.2 % (0.0-4.3) 01/22/19 03:10 Baso % (Auto) 0.2 % (0.0-1.8) 01/22/19 03:10 Lymph # 0.5 K/mm3 (1.2-5.4) L 01/22/19 03:10 [place] # 0.8 K/mm3 (0.0-0.8) 01/22/19 03:10 Eos # 0.1 K/mm3 (0.0-0.4) 01/22/19 03:10 Baso # 0.0 K/mm3 (0.0-0.1) 01/22/19 03:10 Add Manual Diff Complete 01/19/19 09:37 Total Counted 100 01/19/19 09:37 Seg Neutrophils % 85.1 % (40.0-70.0) H 01/22/19 03:10 Seg Neuts % (Manual) 94.0 % (40.0-70.0) H 01/19/19 09:37 0 % 01/19/19 09:37 4.0 % (13.4-35.0) L 01/19/19 09:37 Reactive Lymphs % (Man) 0 % 01/19/19 09:37 1.0 % (0.0-7.3) 01/19/19 09:37 1.0 % (0.0-4.3) 01/19/19 09:37 0 % (0.0-1.8) 01/19/19 09:37 0 % 01/19/19 09:37 0 % 01/19/19 09:37 0 % 01/19/19 09:37 0 % 01/19/19 09:37 Nucleated RBC % Not Reportable 01/19/19 09:37 Seg Neutrophils # 8.5 K/mm3 (1.8-7.7) H 01/22/19 03:10 Seg Neutrophils # Man 20.5 K/mm3 (1.8-7.7) H 01/19/19 09:37 Band Neutrophils # 0.0 K/mm3 01/19/19 09:37 0.9 K/mm3 (1.2-5.4) L 01/19/19 09:37 Abs React Lymphs (Man) 0.0 K/mm3 01/19/19 09:37 0.2 K/mm3 (0.0-0.8) 01/19/19 09:37 0.2 K/mm3 (0.0-0.4) 01/19/19 09:37 0.0 K/mm3 (0.0-0.1) 01/19/19 09:37 0.0 K/mm3 01/19/19 09:37 0.0 K/mm3 01/19/19 09:37 0.0 K/mm3 01/19/19 09:37 Blast Cells # 0.0 K/mm3 01/19/19 09:37 WBC Morphology Not Reportable 01/19/19 09:37 Hypersegmented Neuts Not Reportable 01/19/19 09:37 Hyposegmented Neuts Not Reportable 01/19/19 09:37 Hypogranular Neuts Not Reportable 01/19/19 09:37 Not Reportable 01/19/19 09:37 Not Reportable 01/19/19 09:37 Not Reportable 01/19/19 09:37 Not Reportable 01/19/19 09:37 Not Reportable 01/19/19 09:37 Not Reportable 01/19/19 09:37 Consistent w auto 01/19/19 09:37 Not Reportable 01/19/19 09:37 Plt Clumps, EDTA Not Reportable 01/19/19 09:37 Not Reportable 01/19/19 09:37 Not Reportable 01/19/19 09:37 Not Reportable 01/19/19 09:37 Plt Morphology Comment Not Reportable 01/19/19 09:37 RBC Morphology Not Reportable 01/19/19 09:37 Dimorphic RBCs Not Reportable 01/19/19 09:37 Not Reportable 01/19/19 09:37 1+ 01/19/19 09:37 Not Reportable 01/19/19 09:37 2+ 01/19/19 09:37 Not Reportable 01/19/19 09:37 Not Reportable 01/19/19 09:37 Not Reportable 01/19/19 09:37 Not Reportable 01/19/19 09:37 Not Reportable 01/19/19 09:37 Not Reportable 01/19/19 09:37 Not Reportable 01/19/19 09:37 Not Reportable 01/19/19 09:37 Not Reportable 01/19/19 09:37 Not Reportable 01/19/19 09:37 Not Reportable 01/19/19 09:37 Not Reportable 01/19/19 09:37 Not Reportable 01/19/19 09:37 Not Reportable 01/19/19 09:37 Not Reportable 01/19/19 09:37 Acanthocytes (Spur) Not Reportable 01/19/19 09:37 Rouleaux Not Reportable 01/19/19 09:37 Not Reportable 01/19/19 09:37 Not Reportable 01/19/19 09:37 Not Reportable 01/19/19 09:37 Not Reportable 01/19/19 09:37 Hem Pathologist Commnt No 01/19/19 09:37 PT 15.5 Sec. (12.2-14.9) H 01/13/19 17:42 INR 1.26 (0.87-1.13) H 01/13/19 17:42 APTT 50.0 Sec. (24.2-36.6) H 01/13/19 17:42 Sodium 137 mmol/L (137-145) 01/24/19 05:59 Potassium 3.5 mmol/L (3.6-5.0) L D 01/24/19 05:59 Chloride 96.4 mmol/L (98-107) L 01/24/19 05:59 Carbon Dioxide 28 mmol/L (22-30) 01/24/19 05:59 16 mmol/L 01/24/19 05:59 BUN 16 mg/dL (7-17) 01/24/19 05:59 3.2 mg/dL (0.7-1.2) H 01/24/19 05:59 Estimated GFR 17 ml/min 01/24/19 05:59 5 % 01/24/19 05:59 Glucose 149 mg/dL (65-100) H 01/24/19 05:59 POC Glucose 176 (70-105) H 01/24/19 21:40 Lactic Acid 0.90 mmol/L (0.7-2.0) 01/13/19 17:54 Calcium 9.6 mg/dL (8.4-10.2) 01/24/19 05:59 Magnesium 1.90 mg/dL (1.7-2.3) 01/13/19 17:54 0.50 mg/dL (0.1-1.2) 01/13/19 17:42 < 0.2 mg/dL (0-0.2) 01/13/19 17:42 0.3 mg/dL 01/13/19 17:42 AST 10 units/L (5-40) 01/13/19 17:42 ALT < 5 units/L (7-56) L 01/13/19 17:42 123 units/L (35-129) 01/13/19 17:42 73 units/L (30-135) 01/14/19 07:21 CK-MB (CK-2) 4.4 ng/mL (0.0-4.0) H 01/14/19 07:21 CK-MB (CK-2) Rel Index 6.0 (0-4) H 01/14/19 07:21 0.335 ng/mL (0.00-0.029) H* D 01/14/19 07:21 11.20 mg/dL (0.00-1.30) H 01/22/19 03:10 NT-Pro-B Natriuret Pep 77793 pg/mL (0-900) H 01/13/19 17:42 6.8 g/dL (6.3-8.2) 01/13/19 17:42 2.9 g/dL (3.9-5) L 01/13/19 17:42 0.7 % 01/13/19 17:42 Triglycerides 218 mg/dL (2-149) H 01/13/19 17:54 Cholesterol 130 mg/dL (50-199) 01/13/19 17:54 50 mg/dL (50-130) 01/13/19 17:54 37 mg/dL (40-59) L 01/13/19 17:54 3.51 % 01/13/19 17:54 TSH 3.000 mlU/mL (0.270-4.200) 01/13/19 17:42 Random Vancomycin 17.1 ug/mL (0-40.0) 01/20/19 03:50 Hepatitis A IgM Ab Non-reactive (NonReactive) 01/23/19 10:09 Hep Bs Antigen Non-reactive (Negative) 01/23/19 10:09 Hep B Core IgM Ab Non-reactive (NonReactive) 01/23/19 10:09 Non-reactive (NonReactive) 01/23/19 10:09 Flexitest 1 H 01/22/19 07:25 Active Medications - Current Medications Current Medications: Generic Name Dose Route Start Last Admin Trade Name Freq PRN Reason Stop Dose Admin Acetaminophen 650 mg 01/13/19 22:37 01/18/19 00:16 Tylenol PO 650 mg Q4H PRN Administration Pain MILD(1-3)/Fever >100.5/PEREZ Aspirin 81 mg 01/18/19 18:00 01/24/19 15:53 Halfprin Ec PO 81 mg QDAY CALIXTO Administration Clonidine HCl 0.1 mg 01/14/19 09:31 01/20/19 06:01 Catapres PO 0.1 mg TID PRN Administration Blood Pressure Clopidogrel Bisulfate 75 mg 01/14/19 10:00 01/24/19 15:52 Plavix PO 75 mg QDAY CALIXTO Administration Dextrose 50 ml 01/13/19 22:40 01/22/19 21:42 D50w (25gm) Syringe IV 50 ml PRN PRN Administration Hypoglycemia Enoxaparin Sodium 30 mg 01/14/19 10:00 01/24/19 15:53 Lovenox SUB-Q 30 mg QDAY CALIXTO Administration Sodium Chloride 1,000 mls @ 42 mls/hr 01/24/19 12:00 01/24/19 22:43 Nacl 0.9% 1000 Ml IV 42 mls/hr DIRECT CALIXTO Administration Insulin Human Lispro 0 unit 01/14/19 07:30 01/25/19 07:30 Humalog SUB-Q Not Given ACHS [facility] Protocol Isosorbide Mononitrate 30 mg 01/14/19 10:00 01/24/19 16:02 Imdur PO Not Given DAILY [facility] Lisinopril 10 mg 01/22/19 10:00 01/24/19 16:01 Zestril PO Not Given QDAY CALIXTO Mupirocin 1 applic 01/14/19 14:00 01/24/19 22:24 Bactroban 2% TP 1 applic TID CALIXTO Administration Ondansetron HCl 4 mg 01/13/19 22:37 01/22/19 15:12 Zofran IV 4 mg Q8H PRN Administration Nausea And Vomiting Oxycodone/Acetaminophen 1 tab 01/14/19 09:31 01/24/19 22:23 Percocet 5/325 PO 1 tab Q6H PRN Administration Pain, Moderate (4-6) Pantoprazole Sodium 40 mg 01/14/19 10:00 01/24/19 22:23 Protonix PO 40 mg BID CALIXTO Administration Sodium Chloride 10 ml 01/14/19 10:00 01/24/19 22:53 Sodium Chloride Flush Syringe 10 Ml IV 10 ml BID CALIXTO Administration Sodium Chloride 10 ml 01/13/19 22:37 01/21/19 22:07 Sodium Chloride Flush Syringe 10 Ml IV 10 ml PRN PRN Administration LINE FLUSH Nutrition/Malnutrition Assess - Dietary Evaluation Nutrition/Malnutrition Findings: Nutrition Notes Start: 01/15/19 15:22 Freq: Status: Active Protocol: Document 01/23/19 13:54 RM (Rec: 01/23/19 14:06 [id number]) Nutrition Notes Initial or Follow up Reassessment Current Diagnosis Coronary Artery Disease, Diabetes,Hypertension Other Pertinent Diagnosis ESRD on HD (T/T/S), R foot wound w/gangrene, Sacral PU, PVD Current Diet Cardiac,Renal,Pureed Labs/Tests Reviewed Pertinent Medications Zofran Height 5 ft 2 in Weight 38.9 kg [place] Body Weight (kg) 50.00 BMI 15.7 Weight change and time frame Noted wt loss Subjective/Other Information NPO in place earlier today. Cardiac, Renal, Pureed ordered later today. Pt not in room at time of visit. Noted 2 unopened Nepro at bedside. Per nurse pt has been eating bites of her meals and drink a little of the Nepro. Burn Absent Trauma Absent #1 Nutrition Diagnosis Malnutrition Diagnosis Progress(for reassessment Continues documentation) Is patient on ventilator? No Is Patient Ambulatory and/or Out of Bed No REE-([place]-confined to bed) 1040.952 Kcal/Kg value to use for calculation 35 Approximate Energy Requirements Using 1362 kcal/Kg Additional Notes Protein Needs: 51-64g (1.2-1. 5g/kg) Fluid Needs: 1 ml/kcal Nutrition Intervention Change Diet Order: Continue current Add Supplement/Snack (indicate name/kcal D/C Nepro. Ensure Clear 1 /protein ) daily Provides kCal: 240 Provides Protein (gm) 8 Goal #1 Meet at least 75% of calorie and protein needs via PO and ONS intakes Goal #2 Wt gain/maintenance Anticipated Discharge Needs: Cardiac,Renal,Pureed diet Follow-Up By: 01/25/19 Additional Comments Follow for PO and ONS intakes
--- NOTE | 2019-01-25 08:53 | Progress Note ---
Assessment and Plan Cultures: 01/13/19 Blood: No growth A/P: 68 year old woman with a past medical history of Hypertension, diabetes, ESRD, CAD PVD, Right lower extremity gangrene.Admitted with: 1. Sepsis on Admission: Resolved. Etiology right great toe dry gangrene vs non healing foot ulcers vs ischemia. No fevers. Blood cultures in progress. Chest xary no consolidation. No other source of infection on exam. Likely Leukemoid reaction form tissue ischemia, gangrene and cellulitis. CRP 11.2. 2. Right Toe Dry gangrene: s/p re-vascularization procedure 01/18/19. s/p Amputation of right great toe and metatarsal head 01/24/19. Appreciated cultures and pathology sent. 3. Non healing right foot ulcers: 2 ulcers on the dorsum of the right foot. Superficial no drainage. 4. PVD with Right leg ischemia: s/p right leg endovasular revasuclarzation 11/2018. Arterial duplex shows stable moderate generalized atherosclerosis with a similar stenosis of the mid right SFA. s/p re-vascularization procedure 01/18/19 . 5. Sacral Wound - Stage 2 sacral pressure injury noted: superficial. Not infect ed. Continue wound care 6. Type 2 diabetes: recommend tight glycemic control 7. ESRD on HD: antibiotics renally adjusted. Nephrology following. Recommendations: - Continue wound care - follow-up Procal -Final antibiotic plans based on surgical cultures and pathology [facility] M: [id number] O:[phone]. Subjective Date of service: 01/25/19 Principal diagnosis: PVD with gangrene Interval history: Patient seen and examined in HD. Reports no acute distress. No fevers. Calm. Objective - Exam Narrative Exam: Constitutional: Alert.. Awake. No acute distress Head, Ears, Nose: Normocephalic, atraumatic. External ears, nose normal Eyes: Conjunctivae/corneas clear. No icterus. No ptosis. Neck: Supple, no meningeal signs Oral: dentition poor. No thrush. oral mucosa moist Cardiovascular: S1, S2 normal. Respiratory: Good air entry, clear to auscultation bilaterally GI: Soft, non-tender; bowel sounds normal. No peritoneal signs Musculoskeletal: No pedal edema, no cyanosis. Skin: s/p amputation of right toe. Wrapped in dressing. c/d/i. Hem/Lymphatic: No palpable cervical or supraclavicular nodes. No lymphangitis Psych: Mood ok. Neurological: Awake, alert, oriented. - Constitutional Vitals: Vital Signs Temp Pulse Resp BP Pulse Ox 98.8 F 88 16 144/56 100 01/25/19 05:15 01/25/19 05:15 01/25/19 05:15 01/25/19 05:15 01/25/19 05:15 Temperature -Last 24 Hours Temperature 98.8 F Temperature 99.7 F Temperature 99.2 F Temperature 99.1 F Temperature 98.8 F Temperature 98.8 F - Labs CBC & Chem 7: 01/25/19 10:00 01/25/19 10:00 Labs: Abnormal lab results 01/22/19 01/24/19 01/24/19 Range/Units 07:25 11:21 13:11 POC Glucose 151 H 129 H (70-105) Miscellaneous Test Flexitest 1 H 01/24/19 01/24/19 01/25/19 Range/Units 16:16 21:40 08:32 POC Glucose 119 H 176 H 118 H (70-105) Miscellaneous Test
[2019-01-25 10:43] LABS: Basophils % (Auto) 0.3 % (0.0-1.8); Calcium 9.3 mg/dL (8.4-10.2); Eosinophils # (Auto) 0.2 K/mm3 (0.0-0.4); Eosinophils % (Auto) 4.3 % (0.0-4.3); Hematocrit 31.2 % (30.3-42.9); Hemoglobin 9.5 gm/dl (10.1-14.3); Lymphocytes # (Auto) 0.4 K/mm3 (1.2-5.4); Lymphocytes % (Auto) 8.3 % (13.4-35.0); Mean Corpuscular HGB Conc 31 % (30-34); Mean Corpuscular Volume 83 fl (79-97); Monocytes # (Auto) 0.4 K/mm3 (0.0-0.8); Monocytes % (Auto) 7.7 % (0.0-7.3); Platelet Count 341 K/mm3 (140-440); Red Blood Count 3.78 M/mm3 (3.65-5.03)
--- NOTE | 2019-01-25 11:07 | Progress Note ---
Subjective Date of service: 01/25/19 Principal diagnosis: PVD with gangrene Interval history: s/p Right Lower Extremity Revascularization patient recently underwent amputation by MIKEL, appreciate assistance by Dr. Aden right foot remains warm no further intervention from our standpoint will continue to follow peripherally Objective - Constitutional Vitals: Vital Signs - 12hr 01/24/19 01/25/19 23:06 05:15 Temperature 99.7 F H 98.8 F Pulse Rate 102 H 88 Respiratory 16 16 Rate Blood Pressure 142/74 144/56 O2 Sat by Pulse 99 100 Oximetry - Labs CBC & Chem 7: 01/25/19 10:00 01/25/19 10:00 Labs: Abnormal lab results 01/22/19 01/24/19 01/24/19 Range/Units 07:25 11:21 13:11 Hgb (10.1-14.3) gm/dl MCH (28-32) pg RDW (13.2-15.2) % Lymph % (Auto) (13.4-35.0) % [place] % (Auto) (0.0-7.3) % Lymph # (1.2-5.4) K/mm3 Seg Neutrophils % (40.0-70.0) % BUN (7-17) mg/dL Creatinine (0.7-1.2) mg/dL Glucose (65-100) mg/dL POC Glucose 151 H 129 H (70-105) Miscellaneous Test Flexitest 1 H 01/24/19 01/24/19 01/25/19 Range/Units 16:16 21:40 08:32 Hgb (10.1-14.3) gm/dl MCH (28-32) pg RDW (13.2-15.2) % Lymph % (Auto) (13.4-35.0) % [place] % (Auto) (0.0-7.3) % Lymph # (1.2-5.4) K/mm3 Seg Neutrophils % (40.0-70.0) % BUN (7-17) mg/dL Creatinine (0.7-1.2) mg/dL Glucose (65-100) mg/dL POC Glucose 119 H 176 H 118 H (70-105) Miscellaneous Test 01/25/19 01/25/19 Range/Units 10:00 10:00 Hgb 9.5 L (10.1-14.3) gm/dl MCH 25 L (28-32) pg RDW 23.0 H (13.2-15.2) % Lymph % (Auto) 8.3 L (13.4-35.0) % [place] % (Auto) 7.7 H (0.0-7.3) % Lymph # 0.4 L (1.2-5.4) K/mm3 Seg Neutrophils % 79.4 H (40.0-70.0) % BUN 24 H (7-17) mg/dL Creatinine 3.6 H (0.7-1.2) mg/dL Glucose 155 H (65-100) mg/dL POC Glucose (70-105) Miscellaneous Test Medications & Allergies - Medications Allergies/Adverse Reactions: Allergies erythromycin base [Erythromycin Base] Allergy (Verified 10/26/18 18:04) Rash PATIENT ASK ME TO REMOVEDMED ON ALLERGY LIST. Home Medications: Home Medications Medication Instructions Recorded Confirmed Last Taken Type Ferric Citrate (Nf) [Auryxia] 630 mg PO TIDWM 09/05/18 12/28/18 11/18/18 History Pantoprazole [Protonix TAB] 40 mg PO BID #60 tablet 10/03/18 12/28/18 10/16/18 20:00 Rx ISOSORBIDE MONOnitrate [Imdur ER] 30 mg PO QDAY #30 tablet 10/04/18 12/28/18 Unknown Rx Lisinopril [Zestril TAB] 5 mg PO DAILY #30 tablet 10/04/18 12/28/18 Unknown Rx cloNIDine [Catapres] 0.1 mg PO TID PRN 10/17/18 12/28/18 Unknown History Mupirocin [Bactroban 2% OINT] 1 applic TP TID #1 tube 10/29/18 12/28/18 Unknown Rx Clopidogrel [Plavix] 75 mg PO QDAY #30 tablet 11/28/18 12/28/18 Unknown Rx Clopidogrel [Plavix] 75 mg PO QDAY tablet 11/29/18 12/28/18 Unknown Rx oxyCODONE /ACETAMINOPHEN [Percocet 1 tab PO Q6H PRN #20 tablet 01/19/19 Unknown Rx 5/325 mg] Active Medications: Generic Name Dose Route Start Last Admin Trade Name Freq PRN Reason Stop Dose Admin Acetaminophen 650 mg 01/13/19 22:37 01/18/19 00:16 Tylenol PO 650 mg Q4H PRN Administration Pain MILD(1-3)/Fever >100.5/PEREZ Aspirin 81 mg 01/18/19 18:00 01/24/19 15:53 Halfprin Ec PO 81 mg QDAY CALIXTO Administration Clonidine HCl 0.1 mg 01/14/19 09:31 01/20/19 06:01 Catapres PO 0.1 mg TID PRN Administration Blood Pressure Clopidogrel Bisulfate 75 mg 01/14/19 10:00 01/24/19 15:52 Plavix PO 75 mg QDAY CALIXTO Administration Dextrose 50 ml 01/13/19 22:40 01/22/19 21:42 D50w (25gm) Syringe IV 50 ml PRN PRN Administration Hypoglycemia Enoxaparin Sodium 30 mg 01/14/19 10:00 01/24/19 15:53 Lovenox SUB-Q 30 mg QDAY CALIXTO Administration Sodium Chloride 1,000 mls @ 42 mls/hr 01/24/19 12:00 01/24/19 22:43 Nacl 0.9% 1000 Ml IV 42 mls/hr DIRECT CALIXTO Administration Insulin Human Lispro 0 unit 01/14/19 07:30 01/25/19 07:30 Humalog SUB-Q Not Given ACHS [facility] Protocol Isosorbide Mononitrate 30 mg 01/14/19 10:00 01/24/19 16:02 Imdur PO Not Given DAILY [facility] Lisinopril 10 mg 01/22/19 10:00 01/24/19 16:01 Zestril PO Not Given QDAY [facility] Mupirocin 1 applic 01/14/19 14:00 01/24/19 22:24 Bactroban 2% TP 1 applic TID CALIXTO Administration Ondansetron HCl 4 mg 01/13/19 22:37 01/22/19 15:12 Zofran IV 4 mg Q8H PRN Administration Nausea And Vomiting Oxycodone/Acetaminophen 1 tab 01/14/19 09:31 01/24/19 22:23 Percocet 5/325 PO 1 tab Q6H PRN Administration Pain, Moderate (4-6) Pantoprazole Sodium 40 mg 01/14/19 10:00 01/24/19 22:23 Protonix PO 40 mg BID CALIXTO Administration Sodium Chloride 10 ml 01/14/19 10:00 01/24/19 22:53 Sodium Chloride Flush Syringe 10 Ml IV 10 ml BID CALIXTO Administration Sodium Chloride 10 ml 01/13/19 22:37 01/21/19 22:07 Sodium Chloride Flush Syringe 10 Ml IV 10 ml PRN PRN Administration LINE FLUSH
[2019-01-25] MEDS ORDERED: NACL 0.9 (PRIMING MACHINE ONLY DIALYSIS) MC ONE (11:10)
[2019-01-25] MEDS: LOVENOX SUB-Q SCH (16:48)
[2019-01-25] MEDS: PROTONIX PO SCH ×2 (16:49→21:48)
[2019-01-25] MEDS: HALFPRIN EC PO SCH (16:49)
[2019-01-25] MEDS: ZESTRIL PO SCH (16:49)
[2019-01-25] MEDS: IMDUR PO SCH (16:49)
[2019-01-25] MEDS: PLAVIX PO SCH (16:49)
[2019-01-25] MEDS: SODIUM CHLORIDE FLUSH SYRINGE 10 ML IV SCH (16:54)
[2019-01-25] MEDS: PERCOCET 5/325 PO PRN (16:59)
[2019-01-25] MEDS: TYLENOL PO PRN (21:48)
[2019-01-25] MEDS: SODIUM CHLORIDE FLUSH SYRINGE 10 ML IV PRN (22:05)
[2019-01-26] MEDS: SODIUM CHLORIDE FLUSH SYRINGE 10 ML IV SCH ×3 (03:55→11:48)
[2019-01-26] MEDS: PERCOCET 5/325 PO PRN ×2 (03:56→15:00)
[2019-01-26] MEDS: HumaLOG SUB-Q SCH ×5 (08:00→17:00)
[2019-01-26] MEDS: BACTROBAN 2% TP SCH ×3 (09:10→14:00)
--- NOTE | 2019-01-26 09:12 | Progress Note ---
Assessment and Plan Cultures: 01/13/19 Blood: No growth A/P: 68 year old woman with a past medical history of Hypertension, diabetes, ESRD, CAD PVD, Right lower extremity gangrene.Admitted with: 1. Sepsis on Admission: Resolved. Etiology right great toe dry gangrene vs non healing foot ulcers vs ischemia. No fevers. Blood cultures in progress. Chest xary no consolidation. No other source of infection on exam. Likely Leukemoid reaction form tissue ischemia, gangrene and cellulitis. CRP 11.2. Procal 8.9 2. Right Toe Dry gangrene: s/p re-vascularization procedure 01/18/19. s/p Amputation of right great toe and metatarsal head 01/24/19. Appreciated pathology sent. 3. Non healing right foot ulcers: 2 ulcers on the dorsum of the right foot. Superficial no drainage. 4. PVD with Right leg ischemia: s/p right leg endovasular revasuclarzation 11/2018. Arterial duplex shows stable moderate generalized atherosclerosis with a similar stenosis of the mid right SFA. s/p re-vascularization procedure 01/18/19 . 5. Sacral Wound - Stage 2 sacral pressure injury noted: superficial. Not infected. Continue wound care 6. Type 2 diabetes: recommend tight glycemic control 7. ESRD on HD: antibiotics renally adjusted. Nephrology following. Recommendations: - Continue wound care -Final antibiotic plans based on surgical pathology -Ok to discharge from ID standpoint. Follow-up in ID office in [address] Flores will be wind operations supervisor this weekend, . Please call for questions. Niki Romero NP [facility] M: [phone] O:[phone]. Subjective Date of service: 01/26/19 Principal diagnosis: PVD with gangrene Interval history: Patient seen and examined in HD. Reports no acute distress. No fevers. Calm. Objective - Exam Narrative Exam: Constitutional: Alert.. Awake. No acute distress Head, Ears, Nose: Normocephalic, atraumatic. External ears, nose normal Eyes: Conjunctivae/corneas clear. No icterus. No ptosis. Neck: Supple, no meningeal signs Oral: dentition poor. No thrush. oral mucosa moist Cardiovascular: S1, S2 normal. Respiratory: Good air entry, clear to auscultation bilaterally GI: Soft, non-tender; bowel sounds normal. No peritoneal signs Musculoskeletal: No pedal edema, no cyanosis. Skin: s/p amputation of right toe. Wrapped in dressing. c/d/i. Hem/Lymphatic: No palpable cervical or supraclavicular nodes. No lymphangitis Psych: Mood ok. Neurological: Awake, alert, oriented. - Constitutional Vitals: Vital Signs Temp Pulse Resp BP Pulse Ox 97.4 F L 110 H 18 103/54 99 01/26/19 05:10 01/26/19 05:10 01/26/19 05:10 01/26/19 05:10 01/26/19 05:10 Temperature -Last 24 Hours Temperature 97.4 F Temperature 99.0 F Temperature 97.0 F Temperature 98.4 F Temperature 98.4 F - Labs CBC & Chem 7: 01/25/19 10:00 01/25/19 10:00 Labs: Abnormal lab results 01/25/19 01/25/19 01/25/19 Range/Units 10:00 10:00 21:05 Hgb 9.5 L (10.1-14.3) gm/dl MCH 25 L (28-32) pg RDW 23.0 H (13.2-15.2) % Lymph % (Auto) 8.3 L (13.4-35.0) % [place] % (Auto) 7.7 H (0.0-7.3) % Lymph # 0.4 L (1.2-5.4) K/mm3 Seg Neutrophils % 79.4 H (40.0-70.0) % BUN 24 H (7-17) mg/dL Creatinine 3.6 H (0.7-1.2) mg/dL Glucose 155 H (65-100) mg/dL POC Glucose 295 H (70-105) 01/26/19 Range/Units 08:13 Hgb (10.1-14.3) gm/dl MCH (28-32) pg RDW (13.2-15.2) % Lymph % (Auto) (13.4-35.0) % [place] % (Auto) (0.0-7.3) % Lymph # (1.2-5.4) K/mm3 Seg Neutrophils % (40.0-70.0) % BUN (7-17) mg/dL Creatinine (0.7-1.2) mg/dL Glucose (65-100) mg/dL POC Glucose 165 H (70-105)
[2019-01-26] MEDS: IMDUR PO SCH (11:47)
[2019-01-26] MEDS: HALFPRIN EC PO SCH (11:47)
[2019-01-26] MEDS: PROTONIX PO SCH (11:47)
[2019-01-26] MEDS: LOVENOX SUB-Q SCH (11:47)
[2019-01-26] MEDS: ZESTRIL PO SCH (11:47)
[2019-01-26] MEDS: PLAVIX PO SCH (11:48)
--- NOTE | 2019-01-26 12:45 | Discharge Summary ---
Providers - Providers Date of Admission: 01/13/19 21:42 Attending physician: MARILYN HASSAN MD 01/13/19 18:56 Consult to Physician [CONS] Routine Comment: Consulting Provider: CHERY RODRIGES Physician Instructions: Reason For Exam: dry gangrene R foot, PAD 01/13/19 18:57 Consult to Physician [CONS] Routine Comment: Consulting Provider: JULITO ROSARIO Physician Instructions: Reason For Exam: ESRD on dialysis 01/14/19 02:41 Consult to Wound/ET Nurse [CONS] Routine Reason For Exam: wound eval 01/14/19 08:18 Consult to Physician [CONS] Routine Comment: Consulting Provider: LIYAH MEEK Physician Instructions: Reason For Exam: mulitple infected ulcers, lower ext gangrene 01/15/19 12:33 Consult to Physician [CONS] Routine Comment: Consulting Provider: MICHAEL BLAKELY Physician Instructions: Reason For Exam: RIGHT FOOT GANGRENE 01/16/19 13:27 Speech Therapy Evaluation and Treat [CONS] Routine Reason For Exam: patient pockets food and spits it out. 01/19/19 18:35 Consult to PICC Line RN [CONS] Urgent Reason For Exam: for iv abx, need midline or peripheral IV line Type Line:: Midline 01/20/19 09:53 PICC Line Insertion [Consult to PICC Line RN] [CONS] Urgent Reason For Exam: iv ANTIBIOTICS Type Line:: Midline 01/22/19 16:34 Consult to Dietitian/Nutrition [CONS] Routine Physician Instructions: Reason For Exam: poor intake with low BMI Reason for Consult: Pt needs oral supplement 01/25/19 12:25 Physical Therapy Evaluation and Treat [CONS] Routine Comment: Reason For Exam: eval & treat [facility] Condition: Stable Hospital course: Patient is 68 year old woman from [facility] with a history of Hypertension, DM type 2, ESRD on HD, CAD, PVD and right lower extremity with gangrene of the ankle status post recent re-vascularization,comes to [facility] ED because she was severely tachycardiac at Hemodialysis center. In the emergency room she was found to have gangrene of the right foot, started on vancomycin. * Previous angiogram result Impression: 1) Aortogram and right lower extremity angiography demonstrating multifocal 80-90% stenosis within the proximal and mid SFA with complete occlusion of the mid to distal SFA and reconstitution of the popliteal artery and distal SFA through collaterals. There is single vessel runoff to the foot throughout peroneal artery. 2) Attempted revascularization from both an antegrade and pedal approach as described without success. 3) The patient will need to be rescheduled for re-va scularization procedure on her right leg with anesthesia from both an antegrade and popliteal artery approach. " Acute Right leg limb ischemia: Patient was on palvix, Vascular consulted. Has 2 vessel runoff. Despite 2 vessel runoff, may not heal due to poor nutrition status and ESRD per vascular, discussed with Surgery, Woundcare consulted Dry gangrene: s/p TMA RIGHT GREAT TOE POD #1 Per vascular Patient was seen in the office on 01/12/19 with plan for revascularization on 01/18/19. Patient had dry gangrene at the time, not wet gangrene. Patient is now in the hospital. If patient's clinical status improves, plan will be for further revascularization on 01/18/19 Type 2 [place]: Conservative management Leukocytosis- Sepsis -POA following ID evaluation. 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 d/w Dr. Jones, Started on Plavix Chronic edema of left upper extremity: The patient has had multiple workup with no find is a student reason why. This also houses her AV graft. Poor prognosis Disposition: Awaiting cultures to help guide antibiotics Disposition: [id number] [facility] Time spent for discharge: 35 mins Exam - Constitutional Vitals: Temp Pulse Resp BP Pulse Ox 97.2 F L 112 H 20 118/55 99 01/26/19 11:43 01/26/19 11:43 01/26/19 11:43 01/26/19 11:43 01/26/19 11:43 Plan Activity: advance as tolerated, fall precautions Diet: low fat, diabetic, renal Special Instructions: record daily BP diary, record blood sugar diary Follow up with: MICHAEL BLAKELY MD [Staff Physician] - 7 Days [facility] [Primary Care Provider] - 3-5 Days RENETTA AGUDELO MD [Staff Physician] - 7 Days MARILYN PEDERSEN MD [Staff Physician] - 7 Days ANNETTE OVALLES MD [Staff Physician] - 7 Days Prescriptions: Aspirin EC [Halfprin EC] 81 mg PO QDAY #30 tablet oxyCODONE /ACETAMINOPHEN [Percocet 5/325 mg] 1 tab PO Q6H PRN #20 tablet PRN Reason: Pain , Severe (7-10) Lisinopril [Zestril TAB] 10 mg PO QDAY #30 tablet
[2019-01-26] MEDS ORDERED: TRIPLE ANTIBIOTIC TP ONE (17:49)
[2019-01-26 18:16] VITALS: BP 105/53
--- NOTE | 2019-01-26 20:36 | Progress Note ---
Assessment and Plan Impression: * End stage renal disease * Gangrene of right great toe --s/p amputation Jan 24 * Peripheral artery disease * Hypertension * Type II DM * Secondary hyperparathyroidism * Anemia secondary to ESRD Plan: * Continue outpatient TTS schedule * UF as tolerated * Consultants' recommendations reviewed * Epogen TIW prn * Continue antiHTN medications * Renal diet We will continue to follow for all renal related issues. Thank you. Subjective Date of service: 01/26/19 Principal diagnosis: PVD with gangrene Interval history: no acute events noted; patient notes no issues with HD and all renal related questions answered. tolerated HD well yesterday. Objective - Exam Narrative Exam: General appearance: well-developed, well-nourished EENT: ATNC Respiratory: Present: Clear to Auscultation Cardiology: regular Gastrointestinal: normal, no tenderness, no distended Integumentary: warm and dry Neurologic: alert and oriented x3 Psychiatric: cooperative - Vital Signs Vital signs: Vital Signs - 12hr 01/26/19 01/26/19 11:43 16:46 Temperature 97.2 F L 97.9 F Pulse Rate 112 H 114 H Respiratory 20 18 Rate Blood Pressure 118/55 105/53 O2 Sat by Pulse 99 100 Oximetry - Lab 01/25/19 10:00 01/25/19 10:00 Most recent lab results Calcium 9.3 mg/dL (8.4-10.2) 01/25/19 10:00 Magnesium 1.90 mg/dL (1.7-2.3) 01/13/19 17:54 Medications & Allergies - Medications Allergies/Adverse Reactions: Allergies erythromycin base [Erythromycin Base] Allergy (Verified 10/26/18 18:04) Rash PATIENT ASK ME TO REMOVEDMED ON ALLERGY LIST. Home Medications: Home Medications Medication Instructions Recorded Confirmed Last Taken Type Ferric Citrate (Nf) [Auryxia] 630 mg PO TIDWM 09/05/18 12/28/18 11/18/18 History Pantoprazole [Protonix TAB] 40 mg PO BID #60 tablet 10/03/18 12/28/18 10/16/18 20:00 Rx ISOSORBIDE MONOnitrate [Imdur ER] 30 mg PO QDAY #30 tablet 10/04/18 12/28/18 Unknown Rx cloNIDine [Catapres] 0.1 mg PO TID PRN 10/17/18 12/28/18 Unknown History Mupirocin [Bactroban 2% OINT] 1 applic TP TID #1 tube 10/29/18 12/28/18 Unknown Rx Clopidogrel [Plavix] 75 mg PO QDAY #30 tablet 11/28/18 12/28/18 Unknown Rx Clopidogrel [Plavix] 75 mg PO QDAY tablet 11/29/18 12/28/18 Unknown Rx oxyCODONE /ACETAMINOPHEN [Percocet 1 tab PO Q6H PRN #20 tablet 01/19/19 Unknown Rx 5/325 mg] Aspirin EC [Halfprin EC] 81 mg PO QDAY #30 tablet 01/26/19 Unknown Rx Lisinopril [Zestril TAB] 10 mg PO QDAY #30 tablet 01/26/19 Unknown Rx
== END 2019-01-26 20:33 | DRG 853 ==
LOC: ED 16:30 → 4A 21:42 → 3A 01-23 14:26
PROVIDERS: ADMIT Internal Medicine; ATTEND Internal Medicine
PROC: 5A1D70Z Performance of Urinary Filtration, Intermittent, Less than 6 Hours Per Day (ICD-10-PCS; 2019-01-16)
PROC: 047K3D1 Dilation of Right Femoral Artery with Intraluminal Device, using Drug-Coated Balloon, Percutaneous Approach (ICD-10-PCS; 2019-01-18)
PROC: 047M3Z1 Dilation of Right Popliteal Artery using Drug-Coated Balloon, Percutaneous Approach (ICD-10-PCS; 2019-01-18)
PROC: 04CR3ZZ Extirpation of Matter from Right Posterior Tibial Artery, Percutaneous Approach (ICD-10-PCS; 2019-01-18)
PROC: 04CT3ZZ Extirpation of Matter from Right Peroneal Artery, Percutaneous Approach (ICD-10-PCS; 2019-01-18)
PROC: 047R3ZZ Dilation of Right Posterior Tibial Artery, Percutaneous Approach (ICD-10-PCS; 2019-01-18)
PROC: 047P3Z1 Dilation of Right Anterior Tibial Artery using Drug-Coated Balloon, Percutaneous Approach (ICD-10-PCS; 2019-01-18)
PROC: 047T3Z1 Dilation of Right Peroneal Artery using Drug-Coated Balloon, Percutaneous Approach (ICD-10-PCS; 2019-01-18)
PROC: 5A1D70Z Performance of Urinary Filtration, Intermittent, Less than 6 Hours Per Day (ICD-10-PCS; 2019-01-18)
PROC: B41D1ZZ Fluoroscopy of Aorta and Bilateral Lower Extremity Arteries using Low Osmolar Contrast (ICD-10-PCS; 2019-01-18)
PROC: B44FZZ3 Ultrasonography of Right Lower Extremity Arteries, Intravascular (ICD-10-PCS; 2019-01-18)
PROC: 5A1D70Z Performance of Urinary Filtration, Intermittent, Less than 6 Hours Per Day (ICD-10-PCS; 2019-01-20)
PROC: 05HY33Z Insertion of Infusion Device into Upper Vein, Percutaneous Approach (ICD-10-PCS; 2019-01-20)
PROC: 05H733Z Insertion of Infusion Device into Right Axillary Vein, Percutaneous Approach (ICD-10-PCS; 2019-01-20)
PROC: 5A1D70Z Performance of Urinary Filtration, Intermittent, Less than 6 Hours Per Day (ICD-10-PCS; 2019-01-23)
PROC: 0Y6M0Z9 Detachment at Right Foot, Partial 1st Ray, Open Approach (ICD-10-PCS; principal; 2019-01-24)
PROC: 5A1D70Z Performance of Urinary Filtration, Intermittent, Less than 6 Hours Per Day (ICD-10-PCS; 2019-01-25)
DX: A41.9 Sepsis, unspecified organism (principal); L89.94 Pressure ulcer of unspecified site, stage 4; N18.6 End stage renal disease; E43 Unspecified severe protein-calorie malnutrition; I21.A1 Myocardial infarction type 2; I42.9 Cardiomyopathy, unspecified; I12.0 Hypertensive chronic kidney disease with stage 5 chronic kidney disease or end stage renal disease; Z68.1 Body mass index [BMI] 19.9 or less, adult; L97.919 Non-pressure chronic ulcer of unspecified part of right lower leg with unspecified severity; E11.52 Type 2 diabetes mellitus with diabetic peripheral angiopathy with gangrene; N25.81 Secondary hyperparathyroidism of renal origin; I96 Gangrene, not elsewhere classified; E11.22 Type 2 diabetes mellitus with diabetic chronic kidney disease; Z99.2 Dependence on renal dialysis; E11.621 Type 2 diabetes mellitus with foot ulcer; D63.8 Anemia in other chronic diseases classified elsewhere; E87.6 Hypokalemia; I25.10 Atherosclerotic heart disease of native coronary artery without angina pectoris; I99.8 Other disorder of circulatory system; D72.823 Leukemoid reaction; D63.1 Anemia in chronic kidney disease; L89.152 Pressure ulcer of sacral region, stage 2; K21.9 Gastro-esophageal reflux disease without esophagitis; Z86.718 Personal history of other venous thrombosis and embolism; Z79.899 Other long term (current) drug therapy; Z79.01 Long term (current) use of anticoagulants
CPT/HCPCS: 36415; 37226; 37229; 37252; 70450; 71045; 75625; 75710; 76937; 80048; 80061; 80074; 80076; 80202; 82140; 82550; 82553; 82962; 83735; 83880; 84443; 84484; 85007; 85025; 85027; 85610; 85730; 86140; 87040; 88302; 88304; 88311; 93005; 93010; 94760; G0378; A6250; C1724; C1725; C1753; C1760; C1769; C1887; C2623; J0690; J1100; J1644; J1650; J1815; J2185; J2250; J2405; J2543; J2704; J3010; J3370; J7030; J7050; Q9967

== ENCOUNTER 2019-02-01 17:20 | Emergency (ER) | payer MEDICARE ==
--- NOTE | 2019-02-01 18:10 | Emergency Department Report ---
ED General Adult HPI - General Chief complaint: Extremity Problem,Nontraumatic Stated complaint: BLEEDING FROM THE ARM Time Seen by Provider: 02/01/19 17:52 Source: EMS Mode of arrival: Stretcher Limitations: No Limitations - History of Present Illness Initial comments: Patient is 68 years old female with history of end-stage renal disease on hemodialysis. Patient brought to the emergency room via EMS from dialysis center after patient started bleeding heavily from her left arm fistula. Bleeding is from the arterial side. Patient had a clamp applied by dialysis center. Clamp removed and patient still bleeding from the arterial side, pressure dressing applied by dc. Patient denies any other complaint. According to the patient and EMS report patient completed her dialysis today. - Related Data Home Medications Medication Instructions Recorded Confirmed Last Taken Ferric Citrate (Nf) [Auryxia] 630 mg PO TIDWM 09/05/18 12/28/18 11/18/18 cloNIDine [Catapres] 0.1 mg PO TID PRN 10/17/18 12/28/18 Unknown Previous Rx's Medication Instructions Recorded Last Taken Type Pantoprazole [Protonix TAB] 40 mg PO BID #60 tablet 10/03/18 10/16/18 20:00 Rx ISOSORBIDE MONOnitrate [Imdur ER] 30 mg PO QDAY #30 tablet 10/04/18 Unknown Rx Mupirocin [Bactroban 2% OINT] 1 applic TP TID #1 tube 10/29/18 Unknown Rx Clopidogrel [Plavix] 75 mg PO QDAY #30 tablet 11/28/18 Unknown Rx Clopidogrel [Plavix] 75 mg PO QDAY tablet 11/29/18 Unknown Rx oxyCODONE /ACETAMINOPHEN [Percocet 1 tab PO Q6H PRN #20 tablet 01/19/19 Unknown Rx 5/325 mg] Aspirin EC [Halfprin EC] 81 mg PO QDAY #30 tablet 01/26/19 Unknown Rx Lisinopril [Zestril TAB] 10 mg PO QDAY #30 tablet 01/26/19 Unknown Rx Allergies Allergy/AdvReac Type Severity Reaction Status Date / Time erythromycin base Allergy Rash Verified 10/26/18 18:04 [Erythromycin Base] ED Review of Systems ROS: Stated complaint: BLEEDING FROM THE ARM Other details as noted in HPI Comment: All other systems reviewed and negative Constitutional: denies: chills, fever Respiratory: denies: cough, orthopnea, shortness of breath, SOB with exertion, wheezing Gastrointestinal: denies: abdominal pain ED Past Medical Hx - Past Medical History Previous Medical History?: Yes Hx Hypertension: Yes Hx CVA: No Hx Heart Attack/AMI: No Hx Congestive Heart Failure: No Hx Diabetes: Yes Hx Deep Vein Thrombosis: No Hx Pulmonary Embolism: No Hx GERD: Yes Hx Liver Disease: No Hx Renal Disease: Yes (HD T,TH,Sat) Hx Sickle Cell Disease: No Hx Arthritis: No Hx Headaches / Migraines: No Hx Seizures: No Hx Kidney Stones: No Hx Psychiatric Treatment: No Hx Asthma: No Hx COPD: No Hx Tuberculosis: No Hx Dementia: No Hx HIV: No Additional medical history: anemia - Surgical History Past Surgical History?: Yes Hx Coronary Stent: No Hx Open Heart Surgery: No Hx Pacemaker: No Hx Internal Defibrillator: No Hx Cholecystectomy: No Hx Appendectomy: No Hx Breast Surgery: No Additional Surgical History: graft left arm - Social History Smoking Status: Unknown if ever smoked Substance Use Type: None - Medications Home Medications: Home Medications Medication Instructions Recorded Confirmed Last Taken Type Ferric Citrate (Nf) [Auryxia] 630 mg PO TIDWM 09/05/18 12/28/18 11/18/18 History Pantoprazole [Protonix TAB] 40 mg PO BID #60 tablet 10/03/18 12/28/18 10/16/18 20:00 Rx ISOSORBIDE MONOnitrate [Imdur ER] 30 mg PO QDAY #30 tablet 10/04/18 12/28/18 Unknown Rx cloNIDine [Catapres] 0.1 mg PO TID PRN 10/17/18 12/28/18 Unknown History Mupirocin [Bactroban 2% OINT] 1 applic TP TID #1 tube 10/29/18 12/28/18 Unknown Rx Clopidogrel [Plavix] 75 mg PO QDAY #30 tablet 11/28/18 12/28/18 Unknown Rx Clopidogrel [Plavix] 75 mg PO QDAY tablet 11/29/18 12/28/18 Unknown Rx oxyCODONE /ACETAMINOPHEN [Percocet 1 tab PO Q6H PRN #20 tablet 01/19/19 Unknown Rx 5/325 mg] Aspirin EC [Halfprin EC] 81 mg PO QDAY #30 tablet 01/26/19 Unknown Rx Lisinopril [Zestril TAB] 10 mg PO QDAY #30 tablet 01/26/19 Unknown Rx ED Physical Exam - General Limitations: No Limitations General appearance: alert, in no apparent distress - Head Head exam: Present: atraumatic, normocephalic, normal inspection - Eye Eye exam: Present: normal appearance - ENT ENT exam: Present: normal exam, mucous membranes moist - Neck Neck exam: Present: normal inspection, full ROM. Absent: tenderness, meningismus - Respiratory Respiratory exam: Present: normal lung sounds bilaterally - Cardiovascular Cardiovascular Exam: Present: tachycardia - GI/Abdominal GI/Abdominal exam: Present: soft, normal bowel sounds. Absent: distended, tenderness, guarding, rebound, rigid - Extremities Exam Extremities exam: Present: normal inspection, full ROM, normal capillary refill - Back Exam Back exam: Present: normal inspection, full ROM. Absent: CVA tenderness (R), CV A tenderness (L) - Neurological Exam Neurological exam: Present: alert, oriented X3 ED Course Vital Signs 02/01/19 02/01/19 02/01/19 17:40 17:48 21:19 Temperature 99.2 F 99.2 F Pulse Rate 123 H 123 H 119 H Respiratory 12 16 15 Rate Blood Pressure 106/57 Blood Pressure 106/57 109/63 [Left] O2 Sat by Pulse 98 98 95 Oximetry 02/01/19 23:26 Temperature Pulse Rate 122 H Respiratory 22 Rate Blood Pressure Blood Pressure 94/65 [Left] O2 Sat by Pulse 95 Oximetry - Reevaluation(s) Reevaluation #1: 02/01/19 20:03 Pressure dressing removed. No bleeding at this moment. Reevaluation #2: 02/01/19 22:33 Patient sleeping comfortably in no acute distress. Fistula site examined by me, no bleeding observed. ED Medical Decision Making - Lab Data Result diagrams: 02/01/19 19:12 02/01/19 19:12 - EKG Data -: EKG Interpreted by Me EKG shows normal: sinus rhythm Rate: tachycardia - EKG Data Interpretation: no acute changes - Medical Decision Making Patient is 68 years old female with history of end-stage renal disease on hemodialysis. Patient brought to the emergency room via EMS from dialysis center after patient started bleeding heavily from her left arm fistula. Bleeding is from the arterial side. Patient had a clamp applied by dialysis center. Clamp removed and patient still bleeding from the arterial side, pressure dressing applied by me. Patient denies any other complaint. According to the patient and EMS report patient completed her dialysis today. Patient examined by me multiple times. Patient observed in the ER for several hours, no bleeding observed. Patient will be discharged back to the assisted at [facility] in stable condition and advised to follow- up with her primary care physician and her prize coordinator in the next 2-3 days and to return to the ER if symptoms are not improved. Critical Care Time: Yes Critical care time in (mins) excluding proc time.: 30 Critical care attestation.: If time is entered above; I have spent that time in minutes in the direct care of this critically ill patient, excluding procedure time. ED Disposition Clinical Impression: Problem with dialysis access, ESRD (end stage renal disease) on dialysis Disposition: TO HOME OR SELFCARE Is pt being admited?: No Condition: Stable Instructions: End-Stage Kidney Disease (ED) Referrals: [place] PHYLLIS CAHU MD [Primary Care Provider] - 3-5 Days
[2019-02-01 19:24] LABS: Hematocrit 30.2 % (30.3-42.9); Hemoglobin 9.5 gm/dl (10.1-14.3); Mean Corpuscular HGB Conc 32 % (30-34); Mean Corpuscular Volume 82 fl (79-97); Platelet Count 353 K/mm3 (140-440); Red Blood Count 3.68 M/mm3 (3.65-5.03)
[2019-02-01] MEDS ORDERED: ATIVAN ONE (19:26)
[2019-02-01 19:31] LABS: Red Cell Distribution Width 23.3 % (13.2-15.2)
[2019-02-01 19:47] LABS: INR 1.17 (0.87-1.13)
[2019-02-01 19:48] LABS: Partial Thromboplastin Time 43.9 Sec. (24.2-36.6)
[2019-02-01 20:57] LABS: Anisocytosis 2+; Band Neutrophils # (Manual) 0.2 K/mm3; Basophils % (Manual) 0 % (0.0-1.8); Eosinophils % (Manual) 0 % (0.0-4.3); Hypochromasia 2+; Total Cells Counted 100
[2019-02-01 20:58] LABS: Ovalocytes 1+
[2019-02-01 20:59] LABS: Large Platelets Few; Platelet Estimate Consistent w Auto
[2019-02-01 23:26] VITALS: BP 94/65
== END 2019-02-02 02:30 | disposition home or self-care (01) ==
LOC: ED 17:20
DX: T82.838A Hemorrhage due to vascular prosthetic devices, implants and grafts, initial encounter (principal); E11.22 Type 2 diabetes mellitus with diabetic chronic kidney disease; I12.0 Hypertensive chronic kidney disease with stage 5 chronic kidney disease or end stage renal disease; N18.6 End stage renal disease; Z99.2 Dependence on renal dialysis; K21.9 Gastro-esophageal reflux disease without esophagitis; Z86.2 Personal history of diseases of the blood and blood-forming organs and certain disorders involving the immune mechanism; Z79.899 Other long term (current) drug therapy; Y92.89 Other specified places as the place of occurrence of the external cause
CPT/HCPCS: 36415; 80048; 85007; 85025; 85610; 85730; 93005; 93010; J2060